=== PATIENT | female | born 1950 | race Caucasian/White ===

== ENCOUNTER → 2017-06-10 12:00 | Outpatient (CLI) | payer MEDICARE, OTHER, SELFPAY ==
--- NOTE | 2017-06-10 12:00 | STE_ITS ---
Reason For Study: Chest Pain, CAD Stress Results Protocol: Miguel Protocol Maximum Predicted HR: 154 bpm Target HR: 131 bpm% Max imum Predicted HR: 87 % DurationHeart Rate Stage (mm:ss) (bpm) BPCom ment Baseline 75 168/84 No Chest Pain Miguel Protocol Stage I 3:00 12 6 202/90No Chest Pain Miguel Protocol Stage II 1:30 13 4 / No Chest Pain; Moderate Dyspnea; Lightheaded Recovery 87 130/78 No Chest Pain Stress Duration: 4:30 mm:ss Maximum Stress HR: 134 bpmM ETS: 7 Baseline Echocardiogram Findings The estimated ejection fraction is 65 %. Normal left ventricle. Normal size and thickness. Stress Echo Wall motion Data Resting WMIntermediate WMStress WM Resting Wall Motion Wall Motion Stress No regional wall motion No regional wall motion abnormalities noted. abnormalities noted. EKG Data Normal intervals are noted. The patient exercised according to the regular Miguel protocol for a total duration of 4:30. The maximum heart rate attained was 137 beats per minute. This was 88% of maximum predicted heart rate. The patient exercised into stage 2 of the Miguel protocol. During stress, there were no ST or T wave changes noted to suggest ischemia. No clinical angina was noted. Interpretation Summary The estimated ejection fraction is 65 %. Normal adequate treadmill echocardiogram. Negative for ischemia by EKG and echocardiographic criteria. No anginal symptoms noted. Rare PVC noted. Hypertensive blood pressure response to exercise. Below average exercise capacity for age. Test terminated due to dyspnea, dizziness and lightheadedness. Final LVEF of 75%. No complications. Ordering Physician: Manjinder Toney Referring Physician: Manjinder Toney Performed By: Lily Millard, RDCS, RVT
== END ==
PROVIDERS: Family Provider Family Medicine; PCP Nurse Practitioner Family; Visit Provider Internal Medicine Cardiovascular Disease
DX: I25.119 Atherosclerotic heart disease of native coronary artery with unspecified angina pectoris (principal); Z95.5 Presence of coronary angioplasty implant and graft; R07.9 Chest pain, unspecified
CPT/HCPCS: 93017; 93350

== ENCOUNTER → 2017-12-20 10:43 | Outpatient (CLI) | payer MEDICARE, OTHER, SELFPAY ==
--- NOTE | 2017-12-20 11:00 | RAD_ITS ---
STUDY: X-RAY CHEST REASON FOR EXAM: Female, 67 years old. Chest pain, shortness of breath TECHNIQUE: Frontal and lateral views of the chest were obtained. COMPARISON: None. FINDINGS: The lungs are adequately aerated. There are no focal airspace opacities. There is no demonstrated pleural abnormality. There is borderline enlargement of the cardiac silhouette. The mediastinum and hilar regions are unremarkable. Normal visualized pulmonary arteries. There is atherosclerotic calcification of the thoracic aorta. There are diffuse degenerative changes of the visualized spine. There are degenerative changes in both shoulders. Cholecystectomy clips are present. RAD/Chest PA and Lateral IMPRESSION: There is borderline enlargement of the cardiac silhouette without pulmonary edema or pleural effusion. Electronically Signed: Mary Michel MD at 0:07 EST Tel Direct: [phone], Service support ,
[2017-12-20 11:38] LABS: Absolute Lymphocyte Count 1.71 X10^3/ul (0.83-4.51); Absolute Neutrophil Count 2.6 X10^3/uL (2.0-7.7); Basophil# 0.02 X10^3/uL; Basophil% 0.4 % (0-1); Eosinophil# 0.13 X10^3/uL; Eosinophils% 2.6 % (0-5); Hematocrit 39.4 % (37-47); Hemoglobin 12.9 g/dl (12.0-15.0); Lymphocyte # 1.71 X10^3/ul (4.0); Lymphocyte % 34.8 % (19-41); Mean Corp Hgb Conc 32.7 g/gl (32-36); Mean Corpuscular Hgb 31.3 pg (27.0-32.0); Mean Corpuscular Volume 95.6 fL (81-99); Monocyte# 0.41 X10^3/uL; Monocyte% 8.3 % (0-10); Neutrophil # 2.64 X10^3/uL (2.7-7.7); Neutrophil % 53.7 % (47-70); POSITIVE COUNT NO; POSITIVE DIFFERENTIAL NO; POSITIVE MORPHOLOGY NO; Platelet Count 254 K/mm3 (150-450); RBC Distribution Width CV 12.8 % (11.6-14.6); RBC Distribution Width SD 44.2 fl (35.1-43.9); Red Blood Count 4.12 M/mm3 (4.2-5.4); White Blood Count 4.9 K/mm3 (4.4-11.0)
[2017-12-20 11:49] LABS: International Normalized Ratio 0.9; Prothrombin Time (Protime)PT. 12.5 SECONDS (11.7-14.9)
[2017-12-20 12:04] LABS: AST(SGOT) 14 U/L (15-37); Alanine Aminotransfer ALT/SGPT 26 U/L (13-56); Albumin, Serum 3.3 g/dL (3.2-5.0); Alkaline Phosphatase 114 U/L (45-117); Anion Gap 9 (5-15); BUN 15 mg/dL (7-18); BUN/Creat Ratio 16.3 RATIO (10-20); Bilirubin, Direct 0.17 mg/dL (0.00-0.30); Chloride 110 mmol/L (98-107); Cholesterol 175 mg/dL (200); Creatinine, Serum 0.92 mg/dL (0.55-1.02); EST Glomerular Filtration Rate 65 mL/min (>60); Est Glom Filt Rate - Afr Amer 78 mL/min (>60); Globulin 3.8 g/dL (2.2-4.2); Glucose 93 mg/dL (74-106); High Density Lipoprotein 64 mg/dL; Potassium 3.8 mmol/L (3.5-5.1); Protein, Total 7.1 g/dL (6.4-8.2); Sodium Level 145 mmol/L (136-145); Triglycerides 106 mg/dL; Very Low Density Lipoprotein 21 mg/dL (5-40)
== END ==
PROVIDERS: Family Provider Nurse Practitioner Family; PCP Nurse Practitioner Family; Referring Provider Internal Medicine Cardiovascular Disease; Visit Provider Internal Medicine Cardiovascular Disease
DX: I25.119 Atherosclerotic heart disease of native coronary artery with unspecified angina pectoris (principal); E78.5 Hyperlipidemia, unspecified; Z95.5 Presence of coronary angioplasty implant and graft; R07.9 Chest pain, unspecified
CPT/HCPCS: 36415; 71046; 80048; 80061; 80076; 85025; 85610

== ENCOUNTER 2017-12-28 07:04 | Day surgery (SDC) | payer MEDICARE, OTHER, SELFPAY ==
[2017-12-27 09:23] VITALS: BMI 36.5
[2017-12-28] VITALS (24 sets, daily range): BP systolic 90–141; BP diastolic 30–69; PULSE 57–86; RESP 15–24; TEMP 36.3–37.3; O2SAT 93–99; BMI 36.4; BMI 36.5
--- NOTE | 2017-12-28 09:38 | EKG12_ITS ---
Test Reason : CP Blood Pressure : / mmHG Vent. Rate : 066 BPM Atrial Rate : 066 BPM P-R Int : 180 ms QRS Dur : 074 ms QT Int : 432 ms P-R-T Axes : 025 -08 001 degrees QTc Int : 452 ms Normal sinus rhythm Nonspecific T wave abnormality Abnormal ECG When compared with ECG of 28-DEC-2017 09:49, MANUAL COMPARISON REQUIRED, DATA IS UNCONFIRMED Confirmed by LJ SHI, VARINDER ([id number]), tape editor MILTON RUTH ([id number]) on 01/02/2018 1:51:20 PM Referred By: Manjinder Toney Confirmed By:VARINDER CALHOUN MD
--- NOTE | 2017-12-28 09:46 | CL.I_ITS ---
Patient Name: SLY SNELL Study Date: 12/28/2017 Performing: Manjinder Toney MD Ht: 60 inches 152 cm : 1950 Wt: 187.6 lbs 85 kg Age: 67 Gender: female BSA: 1.81 PROCEDURE(S) PERFORMED DE75-RXA/COR/LV [id number], CORONARY OR GRAFT, INITIAL VESSEL [id number] W OR WO PTCA, SINGLE CORONARY ARTERY CLINICAL PROFILE AND CO-MORBIDITIES Indications: Worsening Angina, Stable Known CAD Heart Failure: None Stress/Imaging Stress Echocardiogram: Yes Result: Negative Stress Echocardiogram: Negative Angina Classification Anginal Classification w/in 2 Weeks: CCS III CAD Presentations: Unstable angina. 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 Successful PTCA/EVELIN with FFR eval of proximal LAd; FFR=0.83. Pt received a 3.0 x 28 Promus Synergy, post dilated with a 3.0 x 12 NC Balloon; 75%-->0%, no dissection. RECOMMENDATIONS Staged for FFR Risk factor modification Management as per referring Algorithm Design Engineer Highly recommend quitting all tobacco products Follow up with primary store facility technician Risk factor modification ASA Indefinitley Plavix for at least 12 months Routine post interventional care Refer for Outpatient Cardiac Rehab Manual sheath removal per protocol Follow up with Dr. Toney ASA Indefinitley Medical management of non dominant RCA unless or until pt has recurrent anginal symptoms. Medical management of mid LAD; post stent LAD FFR=0.91 adjusted for baseline FFR of 0.96 after stenti ng. Successful Mynx closure using double sterile technique. DESCRIPTION OF PROCEDURE The patient arrived to the procedure lab. The risks and benefits of the procedure as well as a full d escription of our services here and lack of surgical backup were fully explained to the patient and/o r their significant other prior to the catheterization. The Timeout was completed, verifying the aga ect patient and procedure. The patient's procedural site was prepped and draped in the usual fashion. Local anesthetic was given subcutaneously to right groin region with Lidocaine 2%. Using a modified Seldinger technique, arterial access was obtained via the right femoral artery, a 4Fr sheath was inse rted. Left Coronary Artery selective angiography was performed in multiple views using a 4 Fr. JL5 c atheter. Right Coronary Artery selective angiography was then performed in multiple views using a 4 F r. 3DRC catheter. Left Ventriculography was performed in GUPTA projection using a 4 Fr. Pigtail cathete r Arterial sheath was exchanged for a 6 Fr Sheath. EBU 3.5 Guide catheter was inserted and engaged into the LCA. The FFR/iFR wire was inserted. Adenosine was then given per protocol. FFR Ratio Baselin e: 0.85 FFR Ratio post Adenosine: 0.83 Emerge 2.00x12 Balloon catheter was inserted. PTCA balloon inf lated at 6 atms for 22 secs. PTCA balloon inflated at 6 atms for 6 secs. Synergy 3.00x28 Drug Eluting stent was inserted. NC Emerge 3.00x12 Balloon catheter was inserted. PTCA balloon inflated at 10 juwan s for 16 secs. PTCA balloon inflated at 14 atms for 11 secs. PTCA balloon inflated at 12 atms for 6 s ecs. Angiogram performed post balloon dilatation. The FFR/iFR wire was inserted. Adenosine was then g iven per protocol. FFR Ratio post intervention: 0.89 Pressures and FFR/iFR were then recorded. The FF R/iFR wire was then removed. Contrast was injected through the sheath and the Right Iliac and Femoral artery were assessed for possible closure device. The arterial sheath was pulled and a Mynx closure device was deployed for hemostasis CORONARY ANGIOGRAPHY DOMINANCE: Left Dominant LEFT HEART ASSESSMENT Left Ventricular Ejection Fraction: by LV Gram 65 % Normal Left Ventricular systolic function Normal LV wall motion LEFT MAIN: Mild calcification LEFT ANTERIOR DECENDING ARTERY: PROX LAD: 75 % Stenosis CIRCUMFLEX ARTERY: MID CIRC: Instent restenosis 0 % RIGHT CORONARY ARTERY: MID RCA: 85 % Stenosis INTERVENTION INFORMATION LESION SITE: LAD (Proximal) Lesion Complexity: High/C, lesion length: 28 mm, culprit lesion: Yes Pre Stenosis: 75 % Pre intervention GUSTAVO flow: 3 PROCEDURE: FFR, Drug Eluting Stent with pre and post dilatation Post Stenosis: 0 % Post intervention GUSTAVO flow: 3 COMPLICATIONS No Complications PROCEDURE MEDICATIONS Versed 1 mg IV Versed 1 mg IV Oxygen: 2 L/min via nasal cannula Adenosine 12.2 mg IV 12/28/2017 08:48:37 Adenosine 12.2 mg IV @ 12/28/2017 08:48:37 Heparin 6000 unit(s) IV 12/28/2017 08:41:47 Nitro 200 mcg IC 12/28/2017 08:43:32 Nitro 200 mcg IC 12/28/2017 08:43:32 Nitro 200 mcg IC 12/28/2017 09:00:47 IV Bolus: .9 NaCl 250 ml total 12/28/2017 08:54:41 SUMMARY OF HEMODYNAMIC DATA Time AIR REST ECG 07:22:25 ECG 07:22:28 AO 149/65 (98) SA 08:31:56 LV 149/-12, 21 08:38:03 LV 151/-14, 16 08:38:09 LVp 157/-13, 16 08:38:15 AOp 157/65 (102) 08:38:20 Signed By Manjinder Toney MD On 12/28/2017 09:46:13 Manjinder Toney MD
--- NOTE | 2017-12-28 10:00 | EKG12_ITS ---
Test Reason : POST-PCI Blood Pressure : / mmHG Vent. Rate : 060 BPM Atrial Rate : 060 BPM P-R Int : 186 ms QRS Dur : 084 ms QT Int : 442 ms P-R-T Axes : 052 005 018 degrees QTc Int : 442 ms Normal sinus rhythm Normal ECG When compared with ECG of 09-DEC-2004 12:28, No significant change was found Confirmed by LJ SHI, VARINDER ([id number]), supervising editor news reel MILTON RTUH ([id number]) on 01/02/2018 1:58:25 PM Referred By: Manjinder Toney Confirmed By:VARINDER CALHOUN MD
--- NOTE | 2017-12-28 10:03 | NURSING ---
patient states she does not want a supplement ordered states she will not drink it.
[2017-12-28] MEDS: 0.9% Normal Saline 1,000 ML 150 ML IV (10:04)
[2017-12-28] MEDS: Isosorbide Mononitrate 60 MG Tablet PO ×2 (11:00→21:11)
[2017-12-28] MEDS: Furosemide 20 MG Tablet PO (11:00)
[2017-12-28] MEDS: Aspirin E.C. 81 MG Tablet PO (11:00)
[2017-12-28] MEDS: amLODIPine 10 MG Tablet PO (11:00)
[2017-12-28] MEDS: Pantoprazole Sodium 40 MG Tablet PO (11:00)
[2017-12-28] MEDS: buPROPion (SR) 150 MG Tablet.SA PO ×2 (11:00→21:11)
[2017-12-28] MEDS: Sertraline 100 MG Tablet PO (11:00)
--- NOTE | 2017-12-28 11:59 | CRPHASE1 ---
Patient Data/Charges Fertilizer Supervisor:: Manjinder Toney Admit Date:: 12/28/17 Phase I Charge:: Level I - Education Risk Factors/Lifestyle Smoking Status: Current every day smoker Packs Smoked per Day: 0.5 Hx Hypertension: Yes Hx Diabetes Mellitus Type 2: No Height: 1.52 m Weight:: 84.822 kg BMI: 36.5 Post-Menopausal: Yes Stress: Home/Family Caffeine: Yes Family History: Family History (Last Reviewed 12/19/17 @ 13:02 by Pari King) Brother CAD (coronary artery disease) Mother CAD (coronary artery disease) Diabetes Family History: COPD, Heart Disease, Hypertension, Pulmonary Disease Past Cardiac Illness: Previous PCI w/Stent Phase I Education Given On:: [place], Nutrition, Antiplatelet medication, Smoking cessation Issues Affecting Care:: None Knowledge of Condition:: Yes Hospital Course Pain Description: Tightness Medical/Surgical History [place]:: No Angina:: Yes Pulmonary:: Yes COPD:: Yes Diabetes Type II:: No Hypertension:: Yes Depression:: Yes Anxiety:: Yes PTCA:: Yes Discharge/Home/Social Eval Discharge Disposition: Home Marital Status: -
--- NOTE | 2017-12-28 12:03 | CRPHASE1_ITS ---
Patient Data/Charges Events Assistant:: Manjinder Toney Admit Date:: 12/28/17 Phase I Charge:: Level I - Education Risk Factors/Lifestyle Smoking Status: Current every day smoker Packs Smoked per Day: 0.5 Hx Hypertension: Yes Hx Diabetes Mellitus Type 2: No Height: 1.52 m Weight:: 84.822 kg BMI: 36.5 Post-Menopausal: Yes Stress: Home/Family Caffeine: Yes Family History: Family History (Last Reviewed 12/19/17 @ 13:02 by Pari King) Brother CAD (coronary artery disease) Mother CAD (coronary artery disease) Diabetes Family History: COPD, Heart Disease, Hypertension, Pulmonary Disease Past Cardiac Illness: Previous PCI w/Stent Phase I Education Given On:: [place], Nutrition, Antiplatelet medication, Smoking cessation Issues Affecting Care:: None Knowledge of Condition:: Yes Hospital Course Pain Description: Tightness Medical/Surgical History [place]:: No Angina:: Yes Pulmonary:: Yes COPD:: Yes Diabetes Type II:: No Hypertension:: Yes Depression:: Yes Anxiety:: Yes PTCA:: Yes Discharge/Home/Social Eval Discharge Disposition: Home Marital Status: -
--- NOTE | 2017-12-28 12:10 | CRPH1.INST_ITS ---
General Education CAD and cardiac anatomy and function:: Patient communicates acknowledgment, Family communicates acknowledgment Explanation of diagnoses and procedures:: Patient communicates acknowledgment, Family communicates acknowledgment Sign/Symptoms of UT:: Patient communicates acknowledgment, Family communicates acknowledgment Antiplatelet therapy: Patient communicates acknowledgment, Family communicates acknowledgment Proper use of NTG-SL: Patient communicates acknowledgment, Family communicates acknowledgment Emergency procedures and activation of EMS: Patient communicates acknowledgment, Family communicates acknowledgment Compliance of all prescribed medications: Patient communicates acknowledgment, Family communicates acknowledgment Smoking Patient Nicotine/Smoking Risk Factors Are:: Cigarettes Recommendations Include:: Smoking cessation strategies/Smoking packet Nicotine/Smoking Response Code:: Patient communicates acknowledgment - DOWN TO 1/2 PPD Dyslipidemia Recommendations Include:: Lipid profile not available Overweight/Obesity Patient Overweight/Obesity Risk Factors Are:: Overweight = 26-29 Overweight/Obesity:: Patient communicates acknowledgment, Family communicates acknowledgment Hypertension Recommendations Include:: Maintain BP <130/85, Decrease/maintain normal body weight Hypertension:: Patient communicates acknowledgment, Family communicates acknowledgment Heart Disease Patient Heart Disease Risk Factors Are:: Family history of heart disease < 65 ye ars old, Previous cardiac event Heart Disease Response Code:: Patient communicates acknowledgment, Family communicates acknowledgment Diabetes Patient Diabetes Risk Factors Are:: No documented hx of diabetes Metabolic Syndrome Patient Metabolic Syndrome Risk Factors Are [3 of 5]:: Waist circumference > 35 [female] or 40 [male], Hypertension Metabolic Syndrome Response Code:: Patient communicates acknowledgment, Family communicates acknowledgment Sedentary Recommendations Include:: Aerobic exercise 5-7 times/week for 20-30 minutes continuously, Benefits of regular exercise, Discussed home walking program Sedentary Response Code:: Patient communicates acknowledgment, Family communicates acknowledgment Stress Recommendations Include:: Identification of stressors, and assessment of coping skills, Stress management techniques Stress Response Code:: Patient communicates acknowledgment, Family communicates acknowledgment - PATIENT STATES THIS IS A MAJOR PROBLEM FOR HER
[2017-12-28 12:40] LABS: ACT Activated Clotting Time 213 sec (74-137)
--- NOTE | 2017-12-28 13:05 | CASEMGMT ---
KAYLI CAMACHO INITIAL ASSESSMENT D/C PLAN: Home RN CM to room for initial transition planning/care coordination assessment. RN DOUG introduced self and role at [facility]. Pt sleeping soundly. Pt's daughter, Emi, @ bedside, willing to participate in assessment, and able to answer all questions appropriately. Care providers, pharmacy, and demographics verified. Daughter made aware if pt would have any questions or needs, to have CM notified to come talk with her. Per Dr Toney, plan is for pt to discharge on Plavix and ASA. PCP: Leonor Orellana Preferred [facility]acy: [facility] Insurance: MCR A AND B, MMO Prescription Benefit: Yes Living Will/HPOA: Has both LW and HCPOA who is pt's , Jt. LNOK: Living Arrangements: Lives with in a split level home. 3 steps to enter home. Daughter states pt able to navigate them well. Pt independent at home w/all ADL's. Transportation: Pt and DME: Dtr states pt has a shower chair but does not use it. Has a raised toilet seat, rails/grab bars, and CPAP. There is a chair lift in the home b/w all the levels of the home that her dad uses, but is available for pt to use if she would need it. HHC/SNF: Dtr states pt has never used HHC or been to a SNF. No needs identified. CM to follow for any further discharge planning needs that may arise. Kamila CLINTON RN, CM
[2017-12-28] MEDS: Atorvastatin Calcium 80 MG Tablet PO (21:11)
[2017-12-29] VITALS (11 sets, daily range): BP systolic 97–147; BP diastolic 35–63; PULSE 55–76; RESP 14–23; TEMP 36.2–37.4; O2SAT 90–97
[2017-12-29 05:08] LABS: Absolute Lymphocyte Count 1.42 X10^3/ul (0.83-4.51); Basophil# 0.01 X10^3/uL; Basophil% 0.2 % (0-1); Eosinophil# 0.11 X10^3/uL; Eosinophils% 2.2 % (0-5); Hematocrit 35.9 % (37-47); Hemoglobin 11.5 g/dl (12.0-15.0); Lymphocyte # 1.42 X10^3/ul (4.0); Lymphocyte % 28.2 % (19-41); Mean Corpuscular Hgb 30.6 pg (27.0-32.0); Mean Corpuscular Volume 95.5 fL (81-99); Mean Platelet Vol. 8.8 fl (6.2-12.0); Monocyte% 9.9 % (0-10); Neutrophil # 2.98 X10^3/uL (2.7-7.7); Neutrophil % 59.3 % (47-70); Platelet Count 220 K/mm3 (150-450); RBC Distribution Width CV 12.6 % (11.6-14.6); RBC Distribution Width SD 42.4 fl (35.1-43.9); Red Blood Count 3.76 M/mm3 (4.2-5.4)
[2017-12-29 05:19] LABS: POSITIVE COUNT NO; POSITIVE DIFFERENTIAL NO; POSITIVE MORPHOLOGY NO
[2017-12-29 05:23] LABS: Anion Gap 7 (5-15); BUN 17 mg/dL (7-18); BUN/Creat Ratio 19.3 RATIO (10-20); Calcium,Total 8.8 mg/dL (8.5-10.1); Chloride 111 mmol/L (98-107); Creatinine, Serum 0.88 mg/dL (0.55-1.02); EST Glomerular Filtration Rate 68 mL/min (>60); Est Glom Filt Rate - Afr Amer 82 mL/min (>60); Estimated Creatinine Clearance 44.56 ml/min; Glucose 92 mg/dL (74-106); Sodium Level 143 mmol/L (136-145)
--- NOTE | 2017-12-29 09:07 | PCM.DC.CCA ---
Discharge Diet: Low fat/ Low Cholesterol May shower in (days): 1 Lifting Restrictions: 10 pounds and also avoid any pushing or pulling for 3 days after your test. Call your doctor if your incision/area has: Continuous Slow Oozing, Increased Pain/ Swelling, Increased Redness, Foul Smelling Discharge, Swelling at the incision site Call your doctor if you observe: Fever of 101 or Higher, Shortness of breath, Chest pain Remove Dressing in (days):: 1 Cleanse incision/area with: Soap & Water Additional Dressing/Incision Instructions:: Keep the dressing (bandage) on until the next morning. You may then shower, but do not take a tub bath for 5 days after your test. It is normal to have some tenderness and discomfort at the puncture site. Sometimes bruising also occurs. However, if pain, numbness, or coldness occurs below the puncture site (in your leg, toes, arms or fingers) call your doctor at once. You may have a small, marble sized knot at the puncture site. This is normal. Do not rub it. It will go away in 4-6 weeks. Bleeding can occur from the area where the puncture was done. Blood may spurt or drip from the site. If blood spurts, apply pressure right away to stop bleeding and call 911. Although rare, bleeding into the tissue (hematoma) can also occur. If this happens, a large, firm area goose egg under the skin will appear. If any of these occur, lie down as flat as you can and have someone apply firm pressure to the cath site with a gauze pad or a clean washcloth for 10-15 minutes. Call 911 or go to the Emergency Department. Additional Instructions: You will need to stay on your plavix for at least one year After your office visit we will refer you to cardiac rehab Allergies/Adverse Reactions: Allergies doxycycline Allergy (Verified 12/19/17 13:10) Unknown metoprolol Adverse Reaction (Verified 12/19/17 13:10) intermittent heart block oxycodone Adverse Reaction (Verified 12/19/17 13:10) vomiting Medications to take at Discharge amlodipine 10 mg tablet 10 mg PO QDAY 90 Days #90 tab 05/16/17 aspirin 81 mg tablet,delayed release 81 mg PO QDAY tab 05/16/17 atorvastatin 80 mg tablet 80 mg PO QHS tab 05/16/17 bupropion HCl SR 150 mg tablet,12 hr sustained-release 150 mg PO BID 05/16/17 furosemide 20 mg tablet 20 mg PO DAILY 05/16/17 sertraline 100 mg tablet 100 mg PO QDAY 05/16/17 isosorbide mononitrate ER 60 mg tablet,extended release 24 hr 60 mg PO BID #60 tab 06/10/17 clopidogrel 75 mg tablet 75 mg PO QDAY #90 tab 12/19/17 omeprazole 40 mg capsule,delayed release 40 mg PO QDAY #90 cap 12/19/17 Primary Care Physician: Leonor Orellana NP-C [Primary Care Provider] - Test Results: Test results from this visit will be discussed in further detail at your follow-up appointment, if applicable. Please Follow Up With: Ifeanyi Maldonado NP-C When: 01/11 at 1:30 Cardiac Rehabilitation Info Cardiac Rehabilitation Program Information: Cardiac Rehabilitation is important for patients like you who are recovering from a heart problem. Cardiac rehabilitation programs are recognized as integral to the continued care of the patient with coronary heart disease. The cardiac rehabilitation program is designed to optimize a patient's physical, psychological, and social functioning. Health career technical supervisor work in cardiac rehabilitation programs and assist you with getting the treatments you need to get stronger and healthier - like exercise, healthy eating habits, and medications. Cardiac rehabilitation has been show to help people with heart problems live longer and have better life enjoyment than people who do not go to cardiac rehabilitation. Please contact the Cardiac Rehabilitation Program at [facility] at in two weeks if you have not heard from them.
--- NOTE | 2017-12-29 09:12 | DCINST_ITS ---
Discharge Diet: Low fat/ Low Cholesterol May shower in (days): 1 Lifting Restrictions: 10 pounds and also avoid any pushing or pulling for 3 days after your test. Call your doctor if your incision/area has: Continuous Slow Oozing, Increased Pain/ Swelling, Increased Redness, Foul Smelling Discharge, Swelling at the incision site Call your doctor if you observe: Fever of 101 or Higher, Shortness of breath, Chest pain Remove Dressing in (days):: 1 Cleanse incision/area with: Soap & Water Additional Dressing/Incision Instructions:: Keep the dressing (bandage) on until the next morning. You may then shower, but do not take a tub bath for 5 days after your test. It is normal to have some tenderness and discomfort at the puncture site. Sometimes bruising also occurs. However, if pain, numbness, or coldness occurs below the puncture site (in your leg, toes, arms or fingers) call your doctor at once. You may have a small, marble sized knot at the puncture site. This is normal. Do not rub it. It will go away in 4-6 weeks. Bleeding can occur from the area where the puncture was done. Blood may spurt or drip from the site. If blood spurts, apply pressure right away to stop bleeding and call 911. Although rare, bleeding into the tissue (hematoma) can also occur. If this happens, a large, firm area goose egg under the skin will appear. If any of these occur, lie down as flat as you can and have someone apply firm pressure to the cath site with a gauze pad or a clean washcloth for 10-15 minutes. Call 911 or go to the Emergency Department. Additional Instructions: You will need to stay on your plavix for at least one year After your office visit we will refer you to cardiac rehab Allergies/Adverse Reactions: Allergies doxycycline Allergy (Verified 12/19/17 13:10) Unknown metoprolol Adverse Reaction (Verified 12/19/17 13:10) intermittent heart block oxycodone Adverse Reaction (Verified 12/19/17 13:10) vomiting Medications to take at Discharge amlodipine 10 mg tablet 10 mg PO QDAY 90 Days #90 tab 05/16/17 aspirin 81 mg tablet,delayed release 81 mg PO QDAY tab 05/16/17 atorvastatin 80 mg tablet 80 mg PO QHS tab 05/16/17 bupropion HCl SR 150 mg tablet,12 hr sustained-release 150 mg PO BID 05/16/17 furosemide 20 mg tablet 20 mg PO DAILY 05/16/17 sertraline 100 mg tablet 100 mg PO QDAY 05/16/17 isosorbide mononitrate ER 60 mg tablet,extended release 24 hr 60 mg PO BID #60 tab 06/10/17 clopidogrel 75 mg tablet 75 mg PO QDAY #90 tab 12/19/17 omeprazole 40 mg capsule,delayed release 40 mg PO QDAY #90 cap 12/19/17 Primary Care Physician: Leonor Orellana NP-C [Primary Care Provider] - Test Results: Test results from this visit will be discussed in further detail at your follow- up appointment, if applicable. Please Follow Up With: Ifeanyi Maldonado NP-C When: 01/11 at 1:30 Cardiac Rehabilitation Info Cardiac Rehabilitation Program Information: Cardiac Rehabilitation is important for patients like you who are recovering from a heart problem. Cardiac rehabilitation programs are recognized as integral to the continued care of the patient with coronary heart disease. The cardiac rehabilitation program is designed to optimize a patient's physical, psychological, and social functioning. Health disabilities caregiver work in cardiac rehabilitation programs and assist you with getting the treatments you need to get stronger and healthier - like exercise, healthy eating habits, and medications. Cardiac rehabilitation has been show to help people with heart problems live longer and have better life enjoyment than people who do not go to cardiac rehabilitation. Please contact the Cardiac Rehabilitation Program at [facility] at in two weeks if you have not heard from them.
[2017-12-29] MEDS: Pantoprazole Sodium 40 MG Tablet PO (09:28)
[2017-12-29] MEDS: Furosemide 20 MG Tablet PO (09:28)
[2017-12-29] MEDS: Aspirin E.C. 81 MG Tablet PO (09:28)
[2017-12-29] MEDS: buPROPion (SR) 150 MG Tablet.SA PO (09:28)
[2017-12-29] MEDS: Sertraline 100 MG Tablet PO (09:28)
[2017-12-29] MEDS: Isosorbide Mononitrate 60 MG Tablet PO (09:28)
[2017-12-29] MEDS: Clopidogrel Bisulfate 75 MG Tablet PO (09:28)
[2017-12-29] MEDS: amLODIPine 10 MG Tablet PO (09:28)
--- NOTE | 2017-12-29 10:00 | EKG12_ITS ---
Test Reason : AM Blood Pressure : / mmHG Vent. Rate : 071 BPM Atrial Rate : 071 BPM P-R Int : 186 ms QRS Dur : 074 ms QT Int : 428 ms P-R-T Axes : 054 003 -01 degrees QTc Int : 465 ms Normal sinus rhythm Normal ECG When compared with ECG of 09-DEC-2004 12:28, Nonspecific T wave abnormality now evident in Anterior leads QT has lengthened Confirmed by LJ SHI, VARINDER ([id number]), proposal editor MILTON RUTH ([id number]) on 01/02/2018 1:51:58 PM Referred By: Manjinder Toney Confirmed By:VARINDER CALHOUN MD
--- NOTE | 2017-12-29 10:20 | PN.CARD_ITS ---
Subjectve: Patient feels great this morning acclimation Hussein no chest pain, angina, shortness of breath. Her right groin is clean/dry/intact without evidence of thrills, bruits or hematoma. She has 2+ DP and PT pulses bilaterally. EKG shows normal sinus rhythm, no acute changes. Hemoglobin and creatinine are within nominal limits. Telemetry negative. Objective: Vital Signs Temp Pulse Resp BP Pulse Ox 97.2 F L 71 17 126/53 H 95 12/29/17 04:00 12/29/17 09:00 12/29/17 09:00 12/29/17 09:00 12/29/17 09:00 Oxygen Delivery Method Room Air Weight: 188 lb 4.396 oz Body Mass Index (BMI) 36.4 Intake and Output for Last 24 Hours 12/27/17 12/28/17 12/29/17 23:59 23:59 23:59 Intake Total 1248 / 1248 677 / 677 Balance 1248 / 1248 677 / 677 General: Awake, Alert, Oriented x 3 HEENT: PERRL, EOMI, Sclera Non Icteric Neck: Supple, Good ROM, No Lymph Node Enlargement Lungs: Clear to auscultation Cardiovascular: Regular Rhythm, Normal S1, Normal S2, No Murmurs, No Rubs, No Gallops Vascular: No Carotid Bruits, Normal Femoral Pulses, Normal Radial Pulses, Normal Dorsalis Pedal Pulse, Normal Posterior Tibial Pulses Abdomen: Bowel Sounds Present, Soft, Non Tender, No HSM, No Organomegaly Extremities: No Cyanosis, No Clubbing, No edema Neurological: No Focal Motor or Sensory Deficit 12/29/17 04:45: Sodium 143, Potassium 4.0, Chloride 111 H, Carbon Dioxide 25.0, Anion Gap 7, BUN 17, Creatinine 0.88, Est GFR (MDRD) Af Amer 82, Est GFR (MDRD) Non-Af 68, BUN/Creatinine Ratio 19.3, Glucose 92, Calcium 8.8 12/29/17 04:45: WBC 5.0, RBC 3.76 L, Hgb 11.5 L, Hct 35.9 L, MCV 95.5, MCH 30.6, MCHC 32.0, RDW 12.6, RDW Differential 42.4, Plt Count 220, MPV 8.8, Immature Gran % (Auto) 0.200, Neut % (Auto) 59.3, Lymph % (Auto) 28.2, [place] % (Auto) 9.9, Eos % (Auto) 2.2, Baso % (Auto) 0.2, Absolute Neuts (auto) 3.0, Total Counted Not Reportable Rhythm: EKG: ECHO: Stress Test: Cardiac Cath: PCI: CT Surgery: Holter monitor: EPS: PPM: CXR: Chest CT Scan: Medical Necessity - Tobacco Use Smoking Status: Current every day smoker Assessment/Plan 1. Coronary artery disease: Patient feels much better after angioplasty and stenting of her LAD. No additional stenting needed at this time. If the patient has recurrent anginal symptoms, I would consider PCI of the mid LAD which has a less than 50% stenosis and may be hemodynamically significant. Otherwise the patient will be discharged home today and follow-up with Ifeanyi in our office in 2 weeks time for a groin check. She will then be enrolled in cardiac rehab. Would hold off on angioplasty and stenting of her nondominant mid RCA at this time. She will continue dual antiplatelet therapy, and be discharged home later today. 2. Hyperlipidemia: Continue statin based medications. Repeat lipid profile after cardiac rehab. 3. Patient to be discharged home and follow-up with Dr. Toney going forward. Code Visit Inpatient E&M: 97850 Subs Hosp L2
== END 2017-12-29 10:48 | disposition home or self-care (01) ==
LOC: CLSP 07:07 → ICU 09:04
PROVIDERS: Family Provider Nurse Practitioner Family; PCP Nurse Practitioner Family; Referring Provider Internal Medicine Cardiovascular Disease; Visit Provider Internal Medicine Cardiovascular Disease
DX: I25.119 Atherosclerotic heart disease of native coronary artery with unspecified angina pectoris (principal); E78.5 Hyperlipidemia, unspecified; I65.29 Occlusion and stenosis of unspecified carotid artery; I10 Essential (primary) hypertension; E78.00 Pure hypercholesterolemia, unspecified; K21.9 Gastro-esophageal reflux disease without esophagitis; E66.9 Obesity, unspecified; Z68.36 Body mass index [BMI] 36.0-36.9, adult; Z95.5 Presence of coronary angioplasty implant and graft; Z79.82 Long term (current) use of aspirin; Z79.01 Long term (current) use of anticoagulants; Z79.899 Other long term (current) drug therapy; Z87.891 Personal history of nicotine dependence; Z71.3 Dietary counseling and surveillance
CPT/HCPCS: 80048; 85025; 85347; 92928; 93005; 93458; 93571; 97802; 99152; 99153; C1760; J0153; J7030; J7040; C1725; C1769; C1874; C1887; C1894; C9600; Q9967

== ENCOUNTER → 2018-02-23 11:16 | Outpatient (CLI) | payer MEDICARE, OTHER, SELFPAY ==
[2017-12-28 12:03] VITALS: BMI 36.5
[2018-02-23 10:25] VITALS: BMI 36.9
[2018-02-23 13:28] LABS: Absolute Lymphocyte Count 1.79 X10^3/ul (0.83-4.51); Absolute Neutrophil Count 4.1 X10^3/uL (2.0-7.7); Basophil# 0.02 X10^3/uL; Basophil% 0.3 % (0-1); Eosinophil# 0.15 X10^3/uL; Eosinophils% 2.3 % (0-5); Hemoglobin 12.3 g/dl (12.0-15.0); Lymphocyte # 1.79 X10^3/ul (4.0); Lymphocyte % 27.2 % (19-41); Mean Corp Hgb Conc 34.2 g/gl (32-36); Mean Corpuscular Hgb 30.4 pg (27.0-32.0); Mean Corpuscular Volume 88.9 fL (81-99); Mean Platelet Vol. 9.8 fl (6.2-12.0); Monocyte# 0.53 X10^3/uL; Monocyte% 8.1 % (0-10); Neutrophil # 4.08 X10^3/uL (2.7-7.7); Neutrophil % 61.9 % (47-70); Platelet Count 280 K/mm3 (150-450); RBC Distribution Width SD 38.2 fl (35.1-43.9); Red Blood Count 4.05 M/mm3 (4.2-5.4); White Blood Count 6.6 K/mm3 (4.4-11.0)
[2018-02-23 13:29] LABS: POSITIVE COUNT NO; POSITIVE DIFFERENTIAL NO; POSITIVE MORPHOLOGY NO
[2018-02-23 13:41] LABS: T4 Free Direct 0.98 ng/dL (0.76-1.46); Thyroid Stim Hormone (TSH) 1.63 uIU/mL (0.358-3.74)
[2018-02-23 13:41] LABS: Vitamin D,25 Hydroxy 52.6 ng/mL (29.95-100.01)
[2018-02-23 13:43] LABS: ALB/GLOB Ratio 0.9 RATIO (0.9-2.4); AST(SGOT) 17 U/L (15-37); Alanine Aminotransfer ALT/SGPT 28 U/L (13-56); Albumin, Serum 3.9 g/dL (3.2-5.0); Alkaline Phosphatase 80 U/L (45-117); Anion Gap 12 (5-15); BUN 23 mg/dL (7-18); BUN/Creat Ratio 20.2 RATIO (10-20); Calcium,Total 9.9 mg/dL (8.5-10.1); Chloride 98 mmol/L (98-107); Creatinine, Serum 1.14 mg/dL (0.55-1.02); EST Glomerular Filtration Rate 51 mL/min (>60); Est Glom Filt Rate - Afr Amer 61 mL/min (>60); Globulin 4.2 g/dL (2.2-4.2); Glucose 178 mg/dL (74-106); Potassium 3.8 mmol/L (3.5-5.1); Protein, Total 8.1 g/dL (6.4-8.2); Sodium Level 137 mmol/L (136-145); Thyroid Stim Hormone (TSH) 2.47 uIU/mL (0.358-3.74)
== END ==
PROVIDERS: Family Provider Nurse Practitioner Family; PCP Nurse Practitioner Family; Visit Provider Nurse Practitioner Family
DX: R06.02 Shortness of breath (principal); R53.83 Other fatigue
CPT/HCPCS: 36415; 80053; 82306; 83880; 84439; 84443; 85025

== ENCOUNTER → 2018-03-29 12:47 | Outpatient (CLI) | payer MEDICARE, OTHER, SELFPAY ==
[2017-12-28 12:03] VITALS: BMI 36.5
[2018-03-08 11:39] VITALS: BMI 36.9
--- NOTE | 2018-03-30 10:49 | PFT ---
INTRODUCTION: The patient is a 67-year-old female that presents for pulmonary function studies secondary to a diagnosis of shortness of breath. Respiratory therapy reports good patient effort. Bronchodilators were used during testing. INTERPRETATION: Forced expiration spirometry demonstrates no evidence of a large airways obstructive ventilatory defect. There was no significant response to aerosolized bronchodilators. Spirograms are of good quality and plateau normally. Body plethysmography was performed and reveals lung volumes to be within normal limits. Diffusing capacity by single breath CO is within normal limits at 65% of predicted. IMPRESSION: Grossly normal pulmonary function studies.
== END ==
PROVIDERS: Family Provider Nurse Practitioner Family; PCP Nurse Practitioner Family; Referring Provider Internal Medicine Critical Care Medicine; Visit Provider Internal Medicine Critical Care Medicine
DX: R06.02 Shortness of breath (principal)
CPT/HCPCS: 94060; 94726; 94729

== ENCOUNTER → 2018-04-03 10:00 | Outpatient (CLI) | payer MEDICARE, OTHER, SELFPAY ==
[2017-12-28 12:03] VITALS: BMI 36.5
[2018-03-08 11:39] VITALS: BMI 36.9
--- NOTE | 2018-04-03 12:07 | SLEEP ---
Patient here after seeing Dr. Louis at [facility] for sleep and pulmonary issues. She had testing and DME set up in [place] in 2018. She is attempting to establish with a DME here in [place]. 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 She wants to use [employer] for supply replacement. I explained that she might not be able to switch until she is out of her rental cycle with [employer]. She has been having difficulty with her current mask. She does not have that with her today. It is a ffm that goes over the bridge of the nose. This has always cause her discomfort. She needs replacement supplies. At least a cushion. I gave her a medium F20 and a DW small frame/ medium cushion to trial. She can keep these until she is able to establish with [employer]. I sent a fax to [facility] to send order for replacement supplies to [place]
== END ==
PROVIDERS: Family Provider Nurse Practitioner Family; PCP Nurse Practitioner Family; Referring Provider Internal Medicine Critical Care Medicine; Visit Provider Internal Medicine Critical Care Medicine
DX: G47.33 Obstructive sleep apnea (adult) (pediatric) (principal)
CPT/HCPCS: 98960; G0463

== ENCOUNTER → 2018-05-05 10:26 | Outpatient (CLI) | payer MEDICARE, OTHER, SELFPAY ==
[2017-12-28 12:03] VITALS: BMI 36.5
[2018-03-08 11:39] VITALS: BMI 36.9
--- NOTE | 2018-05-05 10:29 | STE_ITS ---
Reason For Study: CHEST PAIN Stress Results Protocol: Miguel Protocol Maximum Predicted HR: 153 bpm Target HR: 130 bpm % Maximum Predicted HR: 92 % DurationHeart Rate Stage (mm:ss) (bpm) BP Comment BASELINE 72 144/74 STAGE 1 3:00 120 162/661:20 MINUTUE JERAMY SLIGHT SOB STAGE 2 1:30 141 / SOB AND DIZZINESS RECOVERY 95 142/60 Stress Duration: 4:30 mm:ss Maximum Stress HR: 141 bpm Baseline Echocardiogram Findings The estimated ejection fraction is 65 %. Stress Echo Wall motion Data Resting WM Intermediate WM Stress WM Resting Wall Motion Wall Motion Stress No regional wall motion No regional wall motion abnormalities noted. abnormalities noted. EKG Data Normal intervals are noted. The patient exercised according to the regular Miguel protocol for a total duration of 4:30. The maximum heart rate attained was 141 beats per minute. This was 92% of maximum predicted heart rate. The patient exercised into stage 2 of the Miguel protocol. During stress, there were no ST or T wave changes noted to suggest ischemia. No clinical angina was noted. Interpretation Summary The estimated ejection fraction is 65 %. Normal, adequate, treadmill echocardiogram. Negative for ischemia by EKG and echocardiographic criteria. No anginal symptoms noted. Rare PVCs noted. Appropriate blood pressure response to exercise. Below average exercise capacity for age. Test terminated due to the attainment of target heart rate and dyspnea. Final LVEF is 75%. No complications. Ordering Physician: Manjinder Toney MD Referring Physician: Manjinder Toney Performed By: Lily Millard, JOJO, RVT
== END ==
PROVIDERS: Family Provider Nurse Practitioner Family; PCP Nurse Practitioner Family; Referring Provider Internal Medicine Cardiovascular Disease; Visit Provider Internal Medicine Cardiovascular Disease
DX: I25.119 Atherosclerotic heart disease of native coronary artery with unspecified angina pectoris (principal); R07.9 Chest pain, unspecified; R06.09 Other forms of dyspnea; Z95.5 Presence of coronary angioplasty implant and graft
CPT/HCPCS: 93017; 93350

== ENCOUNTER → 2018-05-18 09:35 | Outpatient (CLI) | payer MEDICARE, OTHER, SELFPAY ==
[2017-12-28 12:03] VITALS: BMI 36.5
[2018-05-15 10:42] VITALS: BMI 37.5
--- NOTE | 2018-05-18 09:48 | RAD_ITS ---
STUDY: X-RAY CHEST REASON FOR EXAM: Female, 67 years old. Pain and shortness of breath for one week. TECHNIQUE: PA and lateral views of the chest. COMPARISON: 12/20/2017. FINDINGS: The lungs are clear and expanded. There is no demonstrated pleural abnormality. Normal size heart. Normal mediastinum and natanael. Normal visualized pulmonary arteries. Normal visualized aortic arch and descending thoracic aorta. There are diffuse degenerative changes of the visualized thoracic spine. There is dextroscoliosis of the thoracolumbar spine. There is degenerative osteoarthritis of the bilateral shoulders. There is no demonstrated abnormality of the visualized soft tissue structures of the upper abdomen. RAD/Chest PA and Lateral IMPRESSION: No active pulmonary disease. Electronically Signed: Oli Logan MD at 9:51 EDT Tel , Service support ,
[2018-05-18 10:07] LABS: Erythrocyte Sedimentation Rate 7 mm/hr (0-30); Hematocrit 38.9 % (37-47); Hemoglobin 12.7 g/dl (12.0-15.0); Mean Corp Hgb Conc 32.6 g/gl (32-36); Mean Corpuscular Volume 91.7 fL (81-99); Platelet Count 257 K/mm3 (150-450); RBC Distribution Width CV 13.2 % (11.6-14.6); RBC Distribution Width SD 43.1 fl (35.1-43.9); Red Blood Count 4.24 M/mm3 (4.2-5.4); Scan Indicated on CBC? Y/N NO; White Blood Count 4.8 K/mm3 (4.4-11.0)
== END ==
PROVIDERS: Family Provider Nurse Practitioner Family; PCP Nurse Practitioner Family; Referring Provider Internal Medicine Cardiovascular Disease; Visit Provider Internal Medicine Cardiovascular Disease
DX: I25.10 Atherosclerotic heart disease of native coronary artery without angina pectoris (principal); R53.83 Other fatigue; R07.1 Chest pain on breathing; R06.00 Dyspnea, unspecified
CPT/HCPCS: 36415; 71046; 85027; 85652

== ENCOUNTER → 2018-06-29 14:10 | Outpatient (CLI) | payer MEDICARE, OTHER, SELFPAY ==
[2017-12-28 12:03] VITALS: BMI 36.5
[2018-06-29 13:22] VITALS: BMI 37.9
[2018-06-29 15:20] LABS: Absolute Lymphocyte Count 1.65 X10^3/ul (0.83-4.51); Absolute Neutrophil Count 2.5 X10^3/uL (2.0-7.7); Basophil# 0.01 X10^3/uL; Basophil% 0.2 % (0-1); Eosinophils% 2.2 % (0-5); Hematocrit 37.6 % (37-47); Hemoglobin 12.4 g/dl (12.0-15.0); Lymphocyte # 1.65 X10^3/ul (4.0); Lymphocyte % 36.2 % (19-41); Mean Corpuscular Hgb 29.7 pg (27.0-32.0); Mean Platelet Vol. 8.9 fl (6.2-12.0); Monocyte% 6.6 % (0-10); Neutrophil # 2.49 X10^3/uL (2.7-7.7); Neutrophil % 54.6 % (47-70); Platelet Count 233 K/mm3 (150-450); RBC Distribution Width SD 42.3 fl (35.1-43.9); Red Blood Count 4.18 M/mm3 (4.2-5.4); White Blood Count 4.6 K/mm3 (4.4-11.0)
[2018-06-29 15:25] LABS: Prothrombin Time (Protime)PT. 13.3 SECONDS (11.7-14.9)
[2018-06-29 15:58] LABS: AST(SGOT) 19 U/L (15-37); Alanine Aminotransfer ALT/SGPT 25 U/L (13-56); Albumin, Serum 3.5 g/dL (3.2-5.0); Alkaline Phosphatase 102 U/L (45-117); Anion Gap 6 (5-15); BUN 16 mg/dL (7-18); BUN/Creat Ratio 15.7 RATIO (10-20); Bilirubin, Direct 0.14 mg/dL (0.00-0.30); Calcium,Total 8.9 mg/dL (8.5-10.1); Chloride 108 mmol/L (98-107); Creatinine, Serum 1.02 mg/dL (0.55-1.02); EST Glomerular Filtration Rate 57 mL/min (>60); Est Glom Filt Rate - Afr Amer 69 mL/min (>60); Globulin 3.7 g/dL (2.2-4.2); Glucose 111 mg/dL (74-106); Potassium 3.4 mmol/L (3.5-5.1); Protein, Total 7.2 g/dL (6.4-8.2); Sodium Level 141 mmol/L (136-145)
[2018-06-29 16:07] LABS: POSITIVE COUNT NO; POSITIVE DIFFERENTIAL NO; POSITIVE MORPHOLOGY NO
== END ==
PROVIDERS: Family Provider Nurse Practitioner Family; PCP Nurse Practitioner Family; Referring Provider Internal Medicine Cardiovascular Disease; Visit Provider Internal Medicine Cardiovascular Disease
DX: I25.119 Atherosclerotic heart disease of native coronary artery with unspecified angina pectoris (principal); R07.9 Chest pain, unspecified; E78.5 Hyperlipidemia, unspecified; G47.33 Obstructive sleep apnea (adult) (pediatric)
CPT/HCPCS: 36415; 80048; 80076; 85025; 85610

== ENCOUNTER 2018-07-12 07:04 | Day surgery (SDC) | payer MEDICARE, OTHER, SELFPAY ==
[2017-12-28 12:03] VITALS: BMI 36.5
--- NOTE | 2018-06-29 01:48 | HP_ITS ---
HPI HPI History of Present Illness Surgical H&P: Yes Details: HPI Chief Complaint: Unstable angina Details: SLY SNELL, is a 67 nondiabetic, female former smoker who smoked on and off for approximately 40 years, sees Dr. Louis for obstructive sleep apnea, who presents to the office today for a cardiovascular outpatient follow-up. She is a history of coronary artery disease status post stenting to her OM 2 at [facility] on 02/23/2017 and PTCA/EVELIN with FFR to proximal LAD in December 2017. Her heart catheterization in December 2017 showed 0% mid LCx in-stent restenosis and 85% mid non dominat RCA stenosis. Given small nature of nondominant RCA stenosis this was left for medical management. She also has a history of hypertension, hyperlipidemia, previous smoker who quit in 2017, obstructive sleep apnea with CPAP therapy, right carotid endarterectomy on 09/01/2012 after suffering several TIAs, and acid reflux. Most recent stress echocardiogram was 05/05/2018 which was negative for inducible ischemia. Despite all of these efforts, the patient continues to have episodes of dyspnea on exertion, shortness of breath and had an episode of chest pain that woke her up from sound sleep in May 2018. She took a sublingual nitroglycerin and her symptoms resolved. The patient is apparently planning on going to [place] soon. Patient states that she initially felt much better after angioplasty and stenting of her LAD in December, participated in cardiac rehab without much difficulty, and continues to exercise as best she can at the [facility] however she has noted decreased exercise capacity, worsening shortness of breath. She had pulmonary function test on 03/30/18 which were grossly normal. In our office today her blood pressure is 100/60, pulse is 72 and regular. Her physical exam is as below. Her lipids as of 12/20/2017 showed an LDL of 90 and HDL of 64. 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: No Is patient in pain?: No Allergies doxycycline Allergy (Verified 06/28/18 15:14) Unknown metoprolol Adverse Reaction (Verified 06/28/18 15:14) intermittent heart block oxycodone Adverse Reaction (Verified 06/28/18 15:14) vomiting Medications aspirin 81 mg tablet,delayed release 81 mg PO QDAY tab 05/16/17 [History Confirmed 06/29/18] sertraline 100 mg tablet 100 mg PO QDAY 05/16/17 [History Confirmed 06/29/18] clopidogrel 75 mg tablet 75 mg PO QDAY #90 tab 12/19/17 [Rx Confirmed 06/29/18] omeprazole 40 mg capsule,delayed release 40 mg PO QDAY #90 cap 12/19/17 [Rx Confirmed 06/29/18] amlodipine 10 mg tablet 10 mg PO QDAY 90 Days #90 tab 01/11/18 [Rx Confirmed 06/29/18] atorvastatin 80 mg tablet 80 mg PO QHS #90 tab 01/11/18 [Rx Confirmed 06/29/18] bupropion HCl SR 150 mg tablet,12 hr sustained-release 150 mg PO BID 02/23/18 [History Confirmed 05/15/18] furosemide 20 mg tablet 20 mg PO DAILY PRN 02/23/18 [History Confirmed 06/29/18] isosorbide mononitrate ER 60 mg tablet,extended release 24 hr 60 mg PO DAILY tab 02/23/18 [History Confirmed 05/15/18] nitroglycerin 0.4 mg sublingual tablet 0.4 mg SUBLINGUAL Q5-15M PRN #25 tab 02/23/18 [Rx Confirmed 06/29/18] [facility] Medical History Nicotine dependence in remission (Chronic) Atherosclerotic heart disease [place] coronary artery w/angina pectoris (Chronic) Obesity (Chronic) Hypertension (Chronic) Hyperlipidemia (Chronic) Carotid artery stenosis (Chronic) GERD (gastroesophageal reflux disease) (Chronic) Obstructive sleep apnea (Chronic) intermttent type 2 heart block (Chronic) Surgical History History of coronary artery stent placement (Chronic 12/28/17) H/O breast biopsy (Resolved) H/O carotid endarterectomy (Resolved ~09/05/12) History of hysterectomy (Resolved) Hx of cholecystectomy (Resolved) Family History Brother CAD (coronary artery disease) CABG Mother CAD (coronary artery disease) Diabetes Sister , Age 13 Myocarditis Social History Tobacco: How many years used: 40 how long ago did patient quit smokin, 0.5ppd second hand exposure: Yes alcohol intake: never caffeine: Yes Type: carbonated beverages Number of servings: 2 ROS Const Const: Positive for other (Stress test 05/16/18 neg: still having CP.On June 11 severe hx, took ntg.); negative for fatigue, weakness, body ache, fever(s), headache(s), chills, frequent falls, night sweats, daytime sleepiness, difficulty sleeping, excessive sweating, weight gain, weight loss, increased appetite, poor appetite or anorexia Eyes Eyes: Negative for blind spots, loss of peripheral vision, transient loss of vision, blurry vision, change in vision, double vision, floaters, tunnel vision or other ENT ENT: Negative for headache(s), dizziness, hearing loss, tinnitus, Nosebleed/epistaxis, balance problems, post nasal drip, lip swelling, tongue swelling, bleeding gums, hoarseness, neck pain, dry mouth or other Cardio Chest Pain: Yes (Off an on, it has gotten better over the past month) Frequency: other (a couple times a week) Character: dull (aching) Onset: at rest Location: mid sternal Relieving: rest, other (One time had to take a nitro) Palpitations: No Edema: Left (left ankle and top of foot. Is taking Lasix every day.) Muscle aches with walking: None Resp Respiratory: Positive for SOB with activity, Cough (occasionally productive clear, usually dry.) and other (Uses CPAP regularly); negative for SOB at rest, SOB orthopnea\SOB lying down, Coughing up blood/hemoptysis, chest congestion, pain on inspiration, snoring, stridor, wheezing, crackles or paroxysmal nocturnal dyspnea GI GI: Negative nausea, vomiting, heartburn, constipation, belching, bloating, cramping, vomiting blood/hematemesis, bright, red blood in stools, black,tarry stools, loose stools, Difficulty Swallowing or other : Negative for hematuria, frequent nighttime urination/ nocturia, erectile dysfunction or abnormal vaginal bleeding Musc Musc: Negative for muscle aches/ myalgia, muscle weakness, joint pain or balance problems Skin Skin: Negative redness, non-healing lesions, rash, unusual bruising, skin ulcer, wounds, jaundice or other Neuro Neuro: Negative for dizziness, lightheadedness, near syncope, syncope, orthostatic symptoms, frequent falls, headache(s), weakness, confusion, memory loss, restless legs, blurry vision, double vision, vertigo, seizures, lack of coordination or other [place] Hematologic/Lymphatic: Negative for easy bleeding, easy bruising, enlarged lymph nodes or other Endo Endo: Negative for fatigue, cold intolerance, heat intolerance, excessive sweating, flushing, increased thirst/drinking, increased hunger, hair loss, hair growth or other Psych Psych: Negative for anxiety, depression, thoughts of harming anyone, thoughts of harming yourself, visual hallucinations, panic attacks or audible hallucinations Allergy Allergy/Immunology: Negative for throat swelling, Negative for tongue swelling, Negative for hives, Negative for rash, Negative for lip swelling Cardiology Exam Const Appearance: cooperative, healthy appearing and no acute distress Nutritional Appearance: well nourished Orientation: alert, oriented x3 and oriented to person Head Head: normal to inspection, normocephalic and atraumatic Nose: external nose normal Face and Sinus: face symmetric Mouth: oral mucosae normal Eyes General: appearance normal, both eyes and all related structures Eyelids: eyelids normal Conjunctivae: conjunctivae normal Pupils: PERRL and normal by confrontation EOM: EOM intact bilaterally Neck Neck: normal visual inspection and full ROM Carotids: normal carotid upstroke Chest Chest inspection: normal inspection of the chest Auscultation: Bilateral: Clear to Auscultation Cardio Palpation: normal PMI Rate: regular rate Rhythm: regular rhythm Heart sounds: S1 normal and S2 normal GI GI: normal to inspection, no hepatosplenomegaly and bowel sounds present Neuro General: alert, awake, oriented x3, CN's II-XI intact bilaterally and moves all extremities Skin Skin: no rashes or lesions noted Extremities Pulses: Normal: Right Femoral Pulse, Left Femoral Pulse, Right Dorsalis Pedis Pulse, Left Dorsalis Pedis Pulse, Right Posterior Tibial Pulse, Left Posterior Tibial Pulse, Right Radial Pulse, Left Radial Pulse Lower Extremity Edema: None: Bilateral Psych Psychological: normal affect Assessment & Plan 1. Atherosclerosis of [place] coronary artery of [place] heart with angina pectoris I25.119 [id number] OM2 2.25 x 13 mm Resolute Raghu 02/23/17; PTCA/EVELIN with FFR to proximal LAD with a 3.0 x 28 Promus Synergy, post dilated with a 3.0 x 12 NC Balloon; Plan 1. Coronary artery disease: The patient has had recurrent episodes of vocal, nonexertional chest pain relieved with sublingual nitroglycerin, but no subsequent exertional anginal symptoms. Her main complaint is dyspnea on exertion and shortness of breath. She underwent a treadmill echocardiogram on 05/05/2018 which was negative for inducible ischemia. In addition the patient reports that she initially garnered a significant benefit from angioplasty and stenting of her LAD system in December 2017, and has had gradually worsening dyspnea on exertion over the last several weeks to months. In addition the patient apparently is planning a trip to [facility] to visit her grandson in the upcoming near term. Given the patient's known coronary disease, initial improvement of her symptoms in December and gradual deterioration of her symptoms despite maximal medical therapy and participation in cardiac rehab, as well as the fact that [place] is going [place] in the near future, I recommended that she undergo a repeat left heart catheterization and coronary angiogram, and intervention of her mid RCA if all of her other stents are patent. In addition I recommended a right heart catheterization to determine if she has undiagnosed or under appreciated pulmonary hypertension given her obstructive sleep apnea and previous smoking. Her recent PFTs were grossly normal. In the meantime she will continue her baby aspirin, amlodipine, Plavix, Lasix and M. Sonam. 2. Hyperlipidemia: We are awaiting a repeat lipid profile. Continue Lipitor. 3. Return office in 6 months. This note was generated using a voice recognition system and there may be incorrect words, spelling or punctuation that were not noted when reviewing the office note prior to saving. Orders Orders: 12 Lead EKG performed by [facility] Today Liver Profile Today Basic Metabolic Profile (BMP) Today Chest PA and Lateral Today 2. Pure hypercholesterolemia E78.00 Plan Detail Other Orders Orders: Left Heart Cath/COR/LV Percut Today I25.10 Lipid Profile Today I25.10 Liver Profile Today E78.5 Basic Metabolic Profile (BMP) Today I25.10, R07.9 Prothrombin Time w/INR Today I25.10 CBC W/Diff, Automated Today G47.33 Other Medications Discontinued: ibuprofen Discontinued Reason: Pt no longer taking 400 mg PO Q8H 60 tabs 1RF Follow Up +6M (Feng) Coding Level of Care Code Off vis,est,level 3 Diagnoses Atherosclerosis of [place] coronary artery of [place] heart with angina pectoris I25.119 ??[place] vs. transplanted heart: [place] heart Pure hypercholesterolemia E78.00 ??Hyperlipidemia type: pure hypercholesterolemia Coding Level of Care Code Off vis,est,level 3 Diagnoses Atherosclerosis of [place] coronary artery of [place] heart with angina pectoris I25.119 ??[place] vs. transplanted heart: [place] heart Pure hypercholesterolemia E78.00 ??Hyperlipidemia type: pure hypercholesterolemia Supplemental Info Supplemental Information Labs LDL Cholesterol 90 mg/dL (0-130) 12/20/17 HDL Cholesterol 64 mg/dL (40-) 12/20/17 Triglycerides 106 mg/dL (-199) 12/20/17 VLDL Cholesterol 21 mg/dL (5-40) 12/20/17 Diagnostics Electrocardiogram 12/29/17 Stress Echocardiogram 05/05/18 Chest X-Ray 05/18/18 Pulmonary Pulmonary Function Test 03/30/18 04/03/18 06/29/18 1349 <Electronically signed by Manjinder Toney MD> Date Manjinder Toney MD
[2018-06-29 13:22] VITALS: BMI 37.9
[2018-07-11 08:41] VITALS: BMI 37.8
[2018-07-12] VITALS (27 sets, daily range): BP systolic 104–168; BP diastolic 39–85; PULSE 55–87; RESP 14–26; TEMP 36.6–37.1; O2SAT 91–99; BMI 37.9
[2018-07-12 09:45] LABS: Blood Gas Specimen Type VEN; VBG BASE EXCESS -3 mmol/L (-1.0-3.5); VBG Bicarbonate 22 mmol/L (22-26); VBG Oxygen Content 23 mmol/L (23-33); VBG PO2 37 mmHg (25-40); VBG SO2 68 % (50-70); VBG pCO2 39.1 mmHg (41-51); VBG pH 7.36 (7.32-7.42)
[2018-07-12 09:45] LABS: ACT Activated Clotting Time 230 sec (74-137)
[2018-07-12 09:45] LABS: Base Excess -4 mmol/L (-2 to +2); Bicarbonate 21.7 mmol/L (22-26); Blood Gas Specimen Type ART; PO2 65 mmHG (75-100); SO2 92 % (95-99); Total Carbon Dioxide 23 mmol/L; pCO2 37.6 mmHg (35-45); pH 7.37 (7.35-7.45)
[2018-07-12 09:45] LABS: Blood Gas Specimen Type VEN; VBG BASE EXCESS -3 mmol/L (-1.0-3.5); VBG Bicarbonate 22 mmol/L (22-26); VBG Oxygen Content 23 mmol/L (23-33); VBG PO2 42 mmHg (25-40); VBG SO2 76 % (50-70); VBG pCO2 38.3 mmHg (41-51); VBG pH 7.37 (7.32-7.42)
--- NOTE | 2018-07-12 09:46 | CL.I_ITS ---
Patient Name: LSY SNELL Study Date: 07/12/2018 Performing: Manjinder Toney MD Ht: 59.84 inches 152 cm : 1950 Wt: 194.01 lbs 88 kg Age: 67 Gender: female BSA: 1.84 PROCEDURE(S) PERFORMED IN43-HFT/LHC/COR/LV HW91-HQH W OR WO PTCA, SINGLE CORONARY ARTERY CLINICAL PROFILE AND CO-MORBIDITIES Indications: New Onset Angina <= 2 months, Stable Known CAD Heart Failure: None Stress/Imaging Date: 05/05/2018 Stress Echocardiogram: Negative Angina Classification Anginal Classification w/in 2 Weeks: CCS III CAD Presentations: Unstable angina. Other: Dyspnea on exertion Comorbidities/Risk Factors: Hypertension Dyslipidemia Prior PCI CONCLUSIONS Normal LV size, wall motion,and systolic function Perserved Left Ventricular systolic function with normal EDP LVEF: by LV gram 65 % Normal Left Ventricular End Diastolic Pressure Single vessel CAD of the mid RCA Non obstructive coronary arteries The patient has normal pulmonary hemodynamics. Right heart pressures - Normal Widely patent LAD and LCX stents. Non obstructive coronary arteries The patient has normal pulmonary hemodynamics. Right heart pressures - Normal Successful PTCA/EVELIN ostial and mid RCA with a 2.25 x 38 Promus Synergy, post dilatedin proximal 3/4 w ith a 2.5 x 12 NC balloon including ostial stent flaring; 85%-->0%, no dissection. Pt had identical CP with balloon inflation as she had at home. RECOMMENDATIONS Referred for immediate PCI Management as per referring Tile And Marble Installer Highly recommend quitting all tobacco products Follow up with primary boring mill operator for metal Risk factor modification ASA Indefinitley Plavix for at least 12 months Routine post interventional care Refer for Outpatient Cardiac Rehab Manual sheath removal per protocol Follow up with Dr. Toney Successful Mynx Control of RFA. DESCRIPTION OF PROCEDURE The patient arrived to the procedure lab. The risks and benefits of the procedure as well as a full d escription of our services here and lack of surgical backup were fully explained to the patient and/o r their significant other prior to the catheterization. The Timeout was completed, verifying the aga ect patient and procedure. The patient's procedural site was prepped and draped in the usual fashion. Local anesthetic was given subcutaneously to right groin region with Lidocaine 2%. Using a modified Seldinger technique, arterial access was obtained via the right femoral artery, a 4Fr sheath was inse rted. Venous access was obtained via the right femoral vein, a 7Fr sheath was inserted. A 7Fr thermal dilution catheter was inserted and right heart pressures were recorded, it was then advanced to PA p osition for cardiac outputs. O2 saturations were then obtained. Thermal dilution cardiac outputs were then recorded. The Thermal dilution catheter was then removed. Left Ventriculography was performed in GUPTA projection using a 4 Fr. Pigtail catheter. LV to AO pullback pressures were then rec orded. Left Coronary Artery selective angiography was performed in multiple views using a 4 Fr. JL5 c atheter. Right Coronary Artery selective angiography was then performed in multiple views using a 4 F r. 3DRC catheterThe images were reviewed and options discussed. A decision was then made to proceed w ith an Intervention, IVUS or other adjunct procedure. Arterial sheath was exchanged for a 6 Fr Sheath. HS1 SH Guide catheter was inserted and engaged i nto the RCA. BMW Guide wire was advanced to the RCA. 2 X 8 EMERGE Balloon catheter was advanced acros s lesion in the right coronary, mid. PTCA balloon inflated at 6 atms for 10 secs. PTCA balloon inflat ed at 8 atms for 13 secs. PTCA balloon inflated at 8 atms for 10 secs. PTCA balloon inflated at 8 juwan s for 13 secs. PTCA balloon inflated at 8 atms for 10 secs. Angiogram performed post balloon dilatati on. 2.25 X 38 SYNERGY Drug Eluting stent was inserted. Drug Eluting stent was advanced across the les ion in the right coronary, mid. Angiogram performed pre stent deployment. Angiogram performed post st ent deployment. 2.5 X 12 NC EMERGE Balloon catheter was inserted. Balloon catheter was inserted post stent. Angiogram performed post balloon dilatation. Contrast was injected through the sheath and the Right Iliac and Femoral artery were assessed for possible closure device. The arterial sheath was pulled and a Mynx closure device was deployed for hemostasis CORONARY ANGIOGRAPHY DOMINANCE: Co- Dominant LEFT HEART ASSESSMENT Left Ventricular Ejection Fraction: by LV Gram 65 % Normal Left Ventricular systolic function LVEDP: 11 mmHg Normal Left Ventricular End Diastolic Pressure Normal LV wall motion RIGHT HEART ASSESSMENT Thermal CO: 5.61 Thermal CI: 3.05 PW: 11/9 7 PA: 31/7 18 RV: 29/1 8 RA: 8/6 4 PVR: 157 SVR: 1497 Right Heart pressures - normal LEFT MAIN: Angiographically normal LEFT ANTERIOR DESCENDING ARTERY: Mild luminal irregularities less than 30% PROX LAD: Previously placed stent is patent CIRCUMFLEX ARTERY: Non-obstructive DISTAL CIRC: Previously placed stent is patent RIGHT CORONARY ARTERY: OSTIAL RCA: 75 % Stenosis MID RCA: 85 % Stenosis INTERVENTION INFORMATION LESION SITE: RCA (Mid) Lesion Complexity: High/C, lesion at bifurcation: No, thrombus present: No, lesion length: 38 mm, cul prit lesion: Yes Pre Stenosis: 85 % Pre intervention GUSTAVO flow: 3 PROCEDURE: Drug Eluting Stent with pre and post dilatation Post Stenosis: 0 % Post intervention GUSTAVO flow: 3 Lesion Devices: Mccarthy .014 BMW [place] Straight 190cm [employer] 6 Fr HSI SH 100cm Guide Catheter Edgardo Sci EMERGE MR 2.00x08 BALLOON Edgardo Sci Synergy MR EVELIN 2.25x38 Edgardo Sci NC EMERGE MR 2.50x12 BALLOON COMPLICATIONS No Complications PROCEDURE MEDICATIONS Versed 1 mg IV Versed 1 mg IV Versed 2 mg IV Baby Aspirin (81mg) 1 Tabs PO @ 07/12/2018 07:48:45 Heparin 6000 unit(s) IV 07/12/2018 08:55:25 Nitro 200 mcg IC 07/12/2018 08:50:34 Nitro 200 mcg IC 07/12/2018 08:50:34 Nitro 300 mcg IC 07/12/2018 09:14:08 Nitro 300 mcg IC 07/12/2018 09:19:26 Nitro glycerin 25mg / 250ml D5W @ 5 mcg/min IV started 07/12/2018 09:24:08 Plavix 75 mg PO 07/12/2018 07:48:57 Potassium Chloride 10 mEq PO 07/12/2018 07:49:13 IV Fluids: .9 NaCl increased to WO ml/hr 07/12/2018 09:00:15 SUMMARY OF HEMODYNAMIC DATA Time AIR REST ECG 07:37:47 RA 09/19 (4) SV 08:35:37 RV 14/03, 08:35:50 PW 12/23 (7) PV 08:36:10 PA 31 (18) PA 08:36:22 LV 136/-11, 10 08:40:07 LV 138/-10, 11 08:40:13 LV 138/-11, 10 08:40:29 PW 13/12 (9) 08:40:29 LV 140/-12, 11 08:40:35 PW 13/10 (9) 08:40:35 LV 132/-7, 8 08:42:34 RV 31/2, 9 08:42:34 LV 148/-7, 14 08:42:41 RV 33/3, 11 08:42:41 LV 144/-10, 13 08:42:51 RV 31/3, 10 08:42:51 LV 153/-8, 14 08:44:10 LVp 155/-13, 13 08:44:13 AOp 150/62 (97) 08:44:18 AO 134/89 (109) SA 08:46:53 AO 160/66 (108) 09:19:16 Type SV CO (l/m) CI (l/m/ HR Time AIR REST Thermal 90.50 5.61 3.05 62 07:37:47 Label % O2 Pres/Loc Time AIR REST AO 92 PV 08:50:47 PA 68 PA 08:50:50 Signed By Manjinder Toney MD On 07/12/2018 09:45:46 Manjinder Toney MD
--- NOTE | 2018-07-12 09:55 | EKG12_ITS ---
Test Reason : PCI Blood Pressure : / mmHG Vent. Rate : 060 BPM Atrial Rate : 060 BPM P-R Int : 184 ms QRS Dur : 076 ms QT Int : 448 ms P-R-T Axes : 044 009 028 degrees QTc Int : 448 ms Normal sinus rhythm Normal ECG Confirmed by ROSEMARY SHI, BARTOLO ([id number]), editorial specialist MILTON RUTH ([id number]) on 07/17/2018 3:11:08 PM Referred By: Manjinder Toney Confirmed By:BARTOLO RILEY MD
--- NOTE | 2018-07-12 10:00 | EKG12_ITS ---
Test Reason : PCI Blood Pressure : / mmHG Vent. Rate : 058 BPM Atrial Rate : 058 BPM P-R Int : 154 ms QRS Dur : 078 ms QT Int : 442 ms P-R-T Axes : 045 013 013 degrees QTc Int : 433 ms Poor data quality, interpretation may be adversely affected Sinus bradycardia with sinus arrhythmia Nonspecific T wave abnormality Confirmed by ROSEMARY SHI, BARTOLO ([id number]), editorial director MILTON RUTH ([id number]) on 07/17/2018 3:11:37 PM Referred By: Manjinder Toney Confirmed By:BARTOLO RILEY MD
[2018-07-12] MEDS: Nitroglycerin Infusion 250 ML 3 MG IV (10:14)
[2018-07-12] MEDS: 0.9% Normal Saline 1,000 ML 150 ML IV (10:14)
--- NOTE | 2018-07-12 10:33 | CRPHASE1_ITS ---
Patient Communication Former Patient:: Phase I - Seen in December 2017 and did cardiac rehab following PHII Cardiac Rehab Discussed with Patient:: Yes Guide to Cardiac Rehab Given to Patient:: Yes Cardiac Rehab Facility Choice List Given to Patient:: Yes - [facility] Choice Program [facility] CR PHII:: Communication Given to CR, Refer to [facility] Control Engineer:: Manjinder Toney Sessions:: 36 sessions - 3 days/wk, 12 weeks Risk Factors/Lifestyle Family History: Family History (Last Reviewed 06/29/18 @ 13:22 by Pari King) Brother CAD (coronary artery disease) Mother CAD (coronary artery disease) Diabetes Sister Myocarditis Cardiac Rehabilitation Info Cardiac Rehabilitation Program Information: Cardiac Rehabilitation is important for patients like you who are recovering from a heart problem. Cardiac rehabilitation programs are recognized as integral to the continued care of the patient with coronary heart disease. The cardiac rehabilitation program is designed to optimize a patient's physical, psychological, and social functioning. Health healthcare economics manager work in cardiac rehabilitation programs and assist you with getting the treatments you need to get stronger and healthier - like exercise, healthy eating habits, and medications. Cardiac rehabilitation has been show to help people with heart problems live longer and have better life enjoyment than people who do not go to cardiac rehabilitation. Please contact the Cardiac Rehabilitation Program at [facility] at in two weeks if you have not heard from them.
--- NOTE | 2018-07-12 10:33 | CRPH1.INSTRU ---
General Education CAD and cardiac anatomy and function:: Not instructed Explanation of diagnoses and procedures:: Not instructed Sign/Symptoms of MN:: Not instructed Antiplatelet therapy: Not instructed Proper use of NTG-SL: Not instructed Emergency procedures and activation of EMS: Not instructed Compliance of all prescribed medications: Not instructed - Seen in Dec 2017 and did cardiac rehab
[2018-07-12] MEDS: Isosorbide Mononitrate 60 MG Tablet PO (11:32)
[2018-07-12] MEDS: Furosemide 20 MG Tablet PO (11:32)
[2018-07-12] MEDS: buPROPion (SR) 150 MG Tablet.SA PO ×2 (11:32→21:21)
[2018-07-12] MEDS: amLODIPine 10 MG Tablet PO (17:52)
[2018-07-12] MEDS: Atorvastatin Calcium 80 MG Tablet PO (21:21)
[2018-07-13] VITALS (11 sets, daily range): BP systolic 122–143; BP diastolic 33–63; PULSE 63–89; RESP 16–20; TEMP 36.8–36.9; O2SAT 91–99
[2018-07-13 04:27] LABS: Hematocrit 35.9 % (37-47); Hemoglobin 11.8 g/dl (12.0-15.0); Mean Corp Hgb Conc 32.9 g/gl (32-36); Mean Corpuscular Hgb 29.4 pg (27.0-32.0); Mean Corpuscular Volume 89.3 fL (81-99); Mean Platelet Vol. 8.9 fl (6.2-12.0); Platelet Count 237 K/mm3 (150-450); RBC Distribution Width CV 12.7 % (11.6-14.6); RBC Distribution Width SD 41.2 fl (35.1-43.9); Red Blood Count 4.02 M/mm3 (4.2-5.4); White Blood Count 5.7 K/mm3 (4.4-11.0)
[2018-07-13 04:28] LABS: Scan Indicated on CBC? Y/N NO
[2018-07-13 04:44] LABS: Anion Gap 7 (5-15); BUN 13 mg/dL (7-18); BUN/Creat Ratio 15.6 RATIO (10-20); Calcium,Total 8.9 mg/dL (8.5-10.1); Chloride 109 mmol/L (98-107); Cholesterol 148 mg/dL (200); Creatinine, Serum 0.83 mg/dL (0.55-1.02); EST Glomerular Filtration Rate 72 mL/min (>60); Est Glom Filt Rate - Afr Amer 88 mL/min (>60); Estimated Creatinine Clearance 47.24 ml/min; Glucose 97 mg/dL (74-106); High Density Lipoprotein 61 mg/dL; Potassium 3.6 mmol/L (3.5-5.1); Sodium Level 142 mmol/L (136-145); Triglycerides 170 mg/dL; Very Low Density Lipoprotein 34 mg/dL (5-40)
[2018-07-13 07:16] LABS: ACT Activated Clotting Time 164 sec (74-137)
--- NOTE | 2018-07-13 08:53 | PCM.DC.CCA ---
Discharge Diet: Low fat/ Low Cholesterol May shower in (days): 1 Lifting Restrictions: 10 pounds and also avoid any pushing or pulling for 3 days after your test. Call your doctor if your incision/area has: Continuous Slow Oozing, Sudden Increased Bleeding, Increased Pain/ Swelling, Increased Redness, Foul Smelling Discharge, Swelling at the incision site Call your doctor if you observe: Fever of 101 or Higher, Shortness of breath, Chest pain Remove Dressing in (days):: 1 Additional Instructions: Call your insurance to see if it will cover cardiac rehab as it has been so recent since you completed it, at your next OV we can discuss further You can NOT stop your plavix for at least one year Allergies/Adverse Reactions: Allergies doxycycline Allergy (Verified 06/28/18 15:14) Unknown metoprolol Adverse Reaction (Verified 06/28/18 15:14) intermittent heart block oxycodone Adverse Reaction (Verified 06/28/18 15:14) vomiting Medications to take at Discharge aspirin 81 mg tablet,delayed release 81 mg PO QDAY tab 05/16/17 sertraline 100 mg tablet 100 mg PO QDAY 05/16/17 clopidogrel 75 mg tablet 75 mg PO QDAY #90 tab 12/19/17 omeprazole 40 mg capsule,delayed release 40 mg PO QDAY #90 cap 12/19/17 amlodipine 10 mg tablet 10 mg PO QDAY 90 Days #90 tab 01/11/18 atorvastatin 80 mg tablet 80 mg PO QHS #90 tab 01/11/18 bupropion HCl SR 150 mg tablet,12 hr sustained-release 150 mg PO BID 02/23/18 isosorbide mononitrate ER 60 mg tablet,extended release 24 hr 60 mg PO DAILY tab 02/23/18 nitroglycerin 0.4 mg sublingual tablet 0.4 mg SUBLINGUAL Q5-15M PRN #25 tab 02/23/18 furosemide 20 mg tablet 20 mg PO DAILY 07/11/18 Potassium Chloride [K-Dur] 10 meq PO DAILY 07/12/18 Orders to be completed after discharge: Phase II, Outpatient Cardiac Rehab Location: None Selected Primary Care Physician: Leonor Orellana, WALT-C [Primary Care Provider] - Please follow up with your Primary Care Physician in: call to see if she wants a f/u Test Results: Test results from this visit will be discussed in further detail at your follow-up appointment, if applicable. Please Follow Up With: Ifeanyi Maldonado NP-C When: 07/31 at 1030 Cardiac Rehabilitation Info Cardiac Rehabilitation Program Information: Cardiac Rehabilitation is important for patients like you who are recovering from a heart problem. Cardiac rehabilitation programs are recognized as integral to the continued care of the patient with coronary heart disease. The cardiac rehabilitation program is designed to optimize a patient's physical, psychological, and social functioning. Health home care liaison work in cardiac rehabilitation programs and assist you with getting the treatments you need to get stronger and healthier - like exercise, healthy eating habits, and medications. Cardiac rehabilitation has been show to help people with heart problems live longer and have better life enjoyment than people who do not go to cardiac rehabilitation. Please contact the Cardiac Rehabilitation Program at [facility] at in two weeks if you have not heard from them.
--- NOTE | 2018-07-13 08:56 | PCM.PN.CARD ---
Subjectve: Patient doing very well, feels much better, no chest pain overnight. Telemetry negative. Right groin is clean/dry/intact, no thrills, bruits or hematoma. EKG shows normal sinus rhythm, no acute changes. Hemoglobin and creatinine are within nominal limits. Objective: Vital Signs Temp Pulse Resp BP Pulse Ox 98.2 F 85 17 135/63 H 97 07/13/18 04:00 07/13/18 08:00 07/13/18 08:00 07/13/18 08:00 07/13/18 08:00 Oxygen Delivery Method Room Air Weight: 198 lb 6.656 oz Body Mass Index (BMI) 37.9 Intake and Output for Last 24 Hours 07/11/18 07/12/18 07/13/18 23:59 23:59 23:59 Intake Total 2239 / 2239 800 / 800 Output Total 1700 / 1700 400 / 400 Balance 539 / 539 400 / 400 07/12/18 08:41: VBG pH 7.36, VBG pO2 37, VBG O2 Sat (Calc) 68, VBG O2 Content 23, VBG Base Excess -3 L 07/12/18 08:44: VBG pH 7.37, VBG pO2 42 H, VBG O2 Sat (Calc) 76 H, VBG O2 Content 23, VBG Base Excess -3 L 07/12/18 08:48: pH 7.37, Bicarbonate Actual 21.7 L, POC Total CO2 23, Base Excess -4 L, O2 Saturation 92 L, ABG pCO2 37.6, ABG pO2 65 L 07/13/18 04:25: WBC 5.7, RBC 4.02 L, Hgb 11.8 L, Hct 35.9 L, MCV 89.3, MCH 29.4, MCHC 32.9, RDW 12.7, RDW Differential 41.2, Plt Count 237, MPV 8.9 07/13/18 04:25: Sodium 142, Potassium 3.6, Chloride 109 H, Carbon Dioxide 26.0, Anion Gap 7, BUN 13, Creatinine 0.83, Est GFR (MDRD) Af Amer 88, Est GFR (MDRD) Non-Af 72, BUN/Creatinine Ratio 15.6, Glucose 97, Calcium 8.9, Triglycerides 170, Cholesterol 148, LDL Cholesterol 53, VLDL Cholesterol 34, HDL Cholesterol 61 Rhythm: EKG: ECHO: Stress Test: Cardiac Cath: PCI: CT Surgery: Holter monitor: EPS: PPM: CXR: Chest CT Scan: Medical Necessity - Tobacco Use Smoking Status: Former smoker Assessment/Plan 1. Coronary artery disease: The patient had identical chest pain that she has been having at home with angioplasty and stenting of her codominant right coronary artery. No additional stenting needed at this time. She will continue baby aspirin and Plavix going forward. Patient be enrolled in cardiac rehab in 2 weeks time. 2. Hyperlipidemia: Continue antilipid therapy. Repeat lipid profile at the conclusion of cardiac rehab. 3. Patient may be discharged home and follow-up with Dr. Toney going forward. Code Visit Inpatient E&M: 60957 Subs Hosp L2
--- NOTE | 2018-07-13 08:57 | DCINST_ITS ---
Discharge Diet: Low fat/ Low Cholesterol May shower in (days): 1 Lifting Restrictions: 10 pounds and also avoid any pushing or pulling for 3 days after your test. Call your doctor if your incision/area has: Continuous Slow Oozing, Sudden Increased Bleeding, Increased Pain/ Swelling, Increased Redness, Foul Smelling Discharge, Swelling at the incision site Call your doctor if you observe: Fever of 101 or Higher, Shortness of breath, Chest pain Remove Dressing in (days):: 1 Additional Instructions: Call your insurance to see if it will cover cardiac rehab as it has been so recent since you completed it, at your next OV we can discuss further You can NOT stop your plavix for at least one year Allergies/Adverse Reactions: Allergies doxycycline Allergy (Verified 06/28/18 15:14) Unknown metoprolol Adverse Reaction (Verified 06/28/18 15:14) intermittent heart block oxycodone Adverse Reaction (Verified 06/28/18 15:14) vomiting Medications to take at Discharge aspirin 81 mg tablet,delayed release 81 mg PO QDAY tab 05/16/17 sertraline 100 mg tablet 100 mg PO QDAY 05/16/17 clopidogrel 75 mg tablet 75 mg PO QDAY #90 tab 12/19/17 omeprazole 40 mg capsule,delayed release 40 mg PO QDAY #90 cap 12/19/17 amlodipine 10 mg tablet 10 mg PO QDAY 90 Days #90 tab 01/11/18 atorvastatin 80 mg tablet 80 mg PO QHS #90 tab 01/11/18 bupropion HCl SR 150 mg tablet,12 hr sustained-release 150 mg PO BID 02/23/18 isosorbide mononitrate ER 60 mg tablet,extended release 24 hr 60 mg PO DAILY tab 02/23/18 nitroglycerin 0.4 mg sublingual tablet 0.4 mg SUBLINGUAL Q5-15M PRN #25 tab 02/23/18 furosemide 20 mg tablet 20 mg PO DAILY 07/11/18 Potassium Chloride [K-Dur] 10 meq PO DAILY 07/12/18 Orders to be completed after discharge: Phase II, Outpatient Cardiac Rehab Location: None Selected Primary Care Physician: Leonor Orellana, WALT-C [Primary Care Provider] - Please follow up with your Primary Care Physician in: call to see if she wants a f/u Test Results: Test results from this visit will be discussed in further detail at your follow- up appointment, if applicable. Please Follow Up With: Ifeanyi Maldonado NP-C When: 07/31 at 1030 Cardiac Rehabilitation Info Cardiac Rehabilitation Program Information: Cardiac Rehabilitation is important for patients like you who are recovering from a heart problem. Cardiac rehabilitation programs are recognized as integral to the continued care of the patient with coronary heart disease. The cardiac rehabilitation program is designed to optimize a patient's physical, psychological, and social functioning. Health personal care home administrator work in cardiac rehabilitation programs and assist you with getting the treatments you need to get stronger and healthier - like exercise, healthy eating habits, and medications. Cardiac rehabilitation has been show to help people with heart problems live longer and have better life enjoyment than people who do not go to cardiac rehabilitation. Please contact the Cardiac Rehabilitation Program at [facility] at in two weeks if you have not heard from them.
[2018-07-13] MEDS: Aspirin E.C. 81 MG Tablet PO (09:13)
[2018-07-13] MEDS: Furosemide 20 MG Tablet PO (09:14)
[2018-07-13] MEDS: buPROPion (SR) 150 MG Tablet.SA PO (09:14)
[2018-07-13] MEDS: amLODIPine 10 MG Tablet PO (09:14)
[2018-07-13] MEDS: Pantoprazole Sodium 40 MG Tablet PO (09:14)
[2018-07-13] MEDS: Isosorbide Mononitrate 60 MG Tablet PO (09:14)
[2018-07-13] MEDS: Sertraline 100 MG Tablet PO (09:14)
[2018-07-13] MEDS: Clopidogrel Bisulfate 75 MG Tablet PO (09:14)
--- NOTE | 2018-07-13 10:00 | EKG12_ITS ---
Test Reason : AM EKG Blood Pressure : / mmHG Vent. Rate : 066 BPM Atrial Rate : 066 BPM P-R Int : 174 ms QRS Dur : 084 ms QT Int : 420 ms P-R-T Axes : 059 007 026 degrees QTc Int : 440 ms Normal sinus rhythm Nonspecific T wave abnormality Confirmed by ROSEMARY SHI, BARTOLO ([id number]), scientific publications editor MILTON RUTH ([id number]) on 07/17/2018 3:08:10 PM Referred By: Manjinder Toney Confirmed By:BARTOLO RILEY MD
== END 2018-07-13 09:50 | disposition home or self-care (01) ==
LOC: CLSP 07:06 → ICU 12:08
PROVIDERS: Family Provider Nurse Practitioner Family; PCP Nurse Practitioner Family; Referring Provider Internal Medicine Cardiovascular Disease; Visit Provider Internal Medicine Cardiovascular Disease
DX: I25.110 Atherosclerotic heart disease of native coronary artery with unstable angina pectoris (principal); I65.29 Occlusion and stenosis of unspecified carotid artery; I10 Essential (primary) hypertension; E78.00 Pure hypercholesterolemia, unspecified; G47.33 Obstructive sleep apnea (adult) (pediatric); K21.9 Gastro-esophageal reflux disease without esophagitis; E66.9 Obesity, unspecified; Z68.37 Body mass index [BMI] 37.0-37.9, adult; Z95.5 Presence of coronary angioplasty implant and graft; Z79.82 Long term (current) use of aspirin; Z79.02 Long term (current) use of antithrombotics/antiplatelets; Z79.899 Other long term (current) drug therapy; Z87.891 Personal history of nicotine dependence; Z86.73 Personal history of transient ischemic attack (TIA), and cerebral infarction without residual deficits
CPT/HCPCS: 80048; 80061; 82803; 85027; 85347; 92928; 93005; 93460; 99152; 99153; C1760; J7030; J7040; C1725; C1751; C1769; C1874; C1887; C1894; C9600; Q9967

== ENCOUNTER 2018-07-31 20:37 | Emergency (ER) | payer MEDICARE, OTHER, SELFPAY ==
[2017-12-28 12:03] VITALS: BMI 36.5
[2018-07-12 10:00] VITALS: BMI 37.9
[2018-07-31 20:38] VITALS: BP 129/68; PULSE 71; RESP 15; TEMP 36.7; O2SAT 98; BMI 37.0
--- NOTE | 2018-07-31 21:27 | RAD_ITS ---
HISTORY: fall tonight. low back pain COMPARISON: None FINDINGS: # of images incl. paperwork: 3 XR Spine Lumbar 3 views: Cholecystectomy clips. Dextroscoliosis. Multilevel degenerative disc disease. Degenerative disc disease manifested by loss of disc height, endplate sclerosis, and anterior enthesophytes. Severe calcific atherosclerotic plaque within the abdominal aorta. Bowel gas pattern is normal. Facet arthropathy greater within the lower lumbar spine. No acute fracture or traumatic malalignment perceived. RAD/Lumbar Spine 2 or 3 Views IMPRESSION: Degenerative disc disease. Facet arthropathy. No acute fracture or traumatic malalignment perceived. at 2216 Reported and signed by: Davy Clark MD Electronically Signed: Davy Clark MD at 22:15 EDT Tel , Service support ,
[2018-07-31] MEDS: HYDROcodone Bitartrate/Apap 5/325 Tablet PO (21:35)
--- NOTE | 2018-07-31 21:50 | RAD_ITS ---
HISTORY: fall tonight, left hip pain EXAM: AP pelvis and 2 views of the left hip COMPARISON: None FINDINGS: # of images incl. paperwork: 3 No acute fracture of pelvis. Proximal femurs are intact. Sacroiliac joints and hip joints are normal. Femoral heads are adequately seated in their respective acetabulae. RAD/HIP, UNI W/ Pelvis 2-3 Views IMPRESSION: No evidence of acute left hip fracture.. at 2214 Reported and signed by: Davy Clark MD Electronically Signed: Davy Clark MD at 22:13 EDT Tel , Service support ,
--- NOTE | 2018-07-31 22:33 | ED.DCSUM_ITS ---
- ER Visit Summary Date of Service: 07/31/18 Chief Complaint: Back pain History of Present Illness: The patient is a 67 F who presents with a back injury. She was changing a light bulb when she fell off the chair and hit her lower back. She also complains of left hip pain. She was able to ambulate after the fall. She took nothing for this pain at home. It is worse with movement. Denies any paresthesias or anesthesia of her lower extremes. No head trauma or LOC. She is on Plavix and aspirin for coronary disease Physical Examination: Vital signs are reviewed. Back exam reveals lumbar tenderness in the spinal and paraspinal areas. She has painful range motion of the back in the left hip. She has tenderness over the left greater trochanteric area. She does have an abrasion to the lumbar spine area. GCS is 15. Her neurologic exam is normal. Test Results: X-rays of the left hip and back are normal Emergency Department Course and Treatment: Patient has contusions of both of these areas. She was given [place] here and for home. She will ice any areas that are sore. She will call her PCP for follow-up Treatment Plan: [] Disposition: Discharge Impression: Left hip contusion, lumbar contusion This note was generated with [employer] dictation software. It may contain incorrect words, spelling, and punctuation that were not noted in review of the chart prior to signing ED Disposition - Plan for ED Patient: Referrals: Leonor Orellana NP-C [Primary Care Provider] -
--- NOTE | 2018-07-31 22:33 | ED.DEP ---
ED Disposition - Plan for ED Patient: Disposition: Home or Assisted Living Instructions: ED Contusion Back Prescriptions: Hydrocodone Bitart/Apap 5-325 [[place] 5MG-325MG] 1 tab PO Q6H PRN PRN 3 Days #10 tab PRN Reason: Pain Referrals: Leonor Orellana, SERVER ADMINISTRATOR-C [Primary Care Provider] -
--- NOTE | 2018-07-31 22:34 | DCINST.ED_ITS ---
ED Disposition - Plan for ED Patient: Disposition: Home or Assisted Living Instructions: ED Contusion Back Prescriptions: Hydrocodone Bitart/Apap 5-325 [[place] 5MG-325MG] 1 tab PO Q6H PRN PRN 3 Days #10 tab PRN Reason: Pain Referrals: Leonor Orellana, PLASTIC SURGERY TECHNICIAN-C [Primary Care Provider] -
== END 2018-07-31 22:46 | disposition home or self-care (01) ==
PROVIDERS: Emergency Provider Emergency Medicine; Family Provider Nurse Practitioner Family; PCP Nurse Practitioner Family
DX: S70.02XA Contusion of left hip, initial encounter (principal); S30.0XXA Contusion of lower back and pelvis, initial encounter; W07.XXXA Fall from chair, initial encounter; Y93.89 Activity, other specified; Y92.9 Unspecified place or not applicable; I25.10 Atherosclerotic heart disease of native coronary artery without angina pectoris; Z79.82 Long term (current) use of aspirin; Z79.02 Long term (current) use of antithrombotics/antiplatelets; Z79.899 Other long term (current) drug therapy
CPT/HCPCS: 72100; 73502; 99283

== ENCOUNTER → 2019-08-22 11:07 | Outpatient (CLI) | payer MEDICARE, OTHER, SELFPAY ==
[2017-12-28 12:03] VITALS: BMI 36.5
[2019-08-10 11:15] VITALS: BMI 36.9
--- NOTE | 2019-08-22 11:09 | ECHOD_ITS ---
Reason For Study: CHEST PAIN Procedure This was a 2D Doppler, Color Flow transthoracic echocardiogram. Exam performed in department. Left Ventricle Normal size and thickness. The estimated ejection fraction is 65 %. Stage 1 diastolic dysfunction. No regional wall motion abnormalities noted. Right Ventricle Mildly dilated right ventricle. Normal systolic function. Atria Normal left atrium. Normal right atrium. Normal atrial septum. Mitral Valve The mitral valve is structurally normal. No prolapse or stenosis seen. Mild (1+) mitral valve insufficiency. Tricuspid Valve Normal tricuspid valve. Trivial tricuspid valve insufficiency. Unable to estimate RV systolic pressure due to insufficient tricuspid regurgitant envelope. Aortic Valve Trisinus/trileaflet aortic valve. Normal aortic valve. Pulmonic Valve Normal pulmonic valve. Great Vessels Normal aortic root. Normal arch. Normal inferior vena cava. Inferior vena cava collapse with sniff. Pericardium/Pleural No pericardial effusion. MMode/2D Measurements & Calculations LVIDd: 3.8 cm IVSd: 0.99 cm Ao root diam: 3.4 cm LVIDs: 2.3 cm LVPWd: 1.0 cm RVDd: 3.7 cm FS: 39.7 % LAV(MOD-bp): 42.6 ml LA A4 area: 13.6 cm2 LA dimension(2D): 3.9 cm LAV(MOD-bp) Indexed: 23.6 ml/m2 LAV(MOD-sp2): 57.2 ml LAV(MOD-sp4): 30.6 ml RA A4 area: 12.9 cm2 Time Measurements MV dec time: 0.19 sec Doppler Measurements & Calculations MV E max hilario: 76.3 cm/sec Lat Peak E' Hilario: 10.4 cm/sec Med Peak E' Hilario: 8.4 cm/sec MV A max hilario: 82.4 cm/sec E/E' lat: 7.3 E/E' med: 9.1 MV E/A: 0.93 Ao V2 max: 151.5 cm/sec LV V1 max: 116.8 cm/sec PA V2 max: 95.2 cm/sec Ao max P.2 mmHg LV V1 max P.5 mmHg TR max hilario: 204.9 cm/sec TR max P.8 mmHg Interpretation Summary The estimated ejection fraction is 65 %. Stage 1 diastolic dysfunction. Mild (1+) mitral valve insufficiency. Trivial tricuspid valve insufficiency. Unable to estimate RV systolic pressure due to insufficient tricuspid regurgitant envelope. Mildly dilated right ventricle. There is no comparison study available. Ordering Physician: Manjinder Toney Referring Physician: LIZETTE TAYLOR Performed By: Lily Millard, JOJO, RVT
== END ==
PROVIDERS: PCP Nurse Practitioner Family; Referring Provider Internal Medicine Cardiovascular Disease; Visit Provider Internal Medicine Cardiovascular Disease
DX: R07.9 Chest pain, unspecified (principal); G47.33 Obstructive sleep apnea (adult) (pediatric)
CPT/HCPCS: 93306

== ENCOUNTER → 2019-08-24 11:50 | Outpatient (CLI) | payer MEDICARE, OTHER, SELFPAY ==
[2017-12-28 12:03] VITALS: BMI 36.5
[2019-08-10 11:15] VITALS: BMI 36.9
--- NOTE | 2019-08-24 11:50 | STEWCON_ITS ---
Reason For Study: CHEST PAIN Stress Results Protocol: Miguel Protocol WITH DEFINITY Maximum Predicted HR: 152 bpm Target HR: 129 bpm % Maximum Predicted HR: 93 % DurationHeart Rate Stage (mm:ss) (bpm) BP Comment BASELINE 61 146/88 STAGE 1 3:00 123 200/64 STAGE 2 1:30 142 / SOB RECOVERY 93 158/744 CC DEFINITY FOR ENTIRE TEST Stress Duration: 4:30 mm:ss Maximum Stress HR: 142 bpm Baseline Echocardiogram Findings The estimated ejection fraction is 65 %. Stress Echo Wall motion Data Resting WM Intermediate WM Stress WM Resting Wall Motion Wall Motion Stress No regional wall motion Mid-Anterior : Mildly abnormalities noted. hypokinetic. Mid-anteroseptal : Mildly hypokinetic. Mid-Lateral : Mildly hypokinetic. EKG Data The baseline ECG displays normal sinus rhythm. The patient exercised according to the regular Miguel protocol for a total duration of 4:30. The maximum heart rate attained was 142 beats per minute. This was 93% of maximum predicted heart rate. The patient exercised into stage 2 of the Miguel protocol. During stress, there were no ST or T wave changes noted to suggest ischemia. No clinical angina was noted. Interpretation Summary The estimated ejection fraction is 65 %. Mid-Anterior : Mildly hypokinetic Mid-anteroseptal : Mildly hypokinetic Mid-Lateral : Mildly hypokinetic Abnormal, adequate, treadmill echocardiogram. Positive for ischemia by echocardiograph criteria. No anginal symptoms noted. Rare PACs and PVCs during exercise and into recovery. Below average exercise capacity for age. Hypertensive blood pressure response to exercise. The patient appeared to develop mild antral and lateral hypokinesis seen in 3 different views. Test terminated due to attainment of target heart rate and dyspnea, which may be an anginal equivalent. Final LVEF of 55%. Sensitivity affected by poor echo windows requiring Definity agent. Patient tolerated procedure well. No complications. The study was technically difficult. Contrast injection was performed. Ordering Physician: Manjinder Toney MD Referring Physician: Manjinder Toney Performed By: Lisseth Paez [facility]
== END ==
PROVIDERS: PCP Nurse Practitioner Family; Referring Provider Internal Medicine Cardiovascular Disease; Visit Provider Internal Medicine Cardiovascular Disease
DX: I25.119 Atherosclerotic heart disease of native coronary artery with unspecified angina pectoris (principal); I10 Essential (primary) hypertension; R07.9 Chest pain, unspecified; R06.00 Dyspnea, unspecified
CPT/HCPCS: 93017; 93350; Q9957; A4216; C8928

== ENCOUNTER 2019-09-05 06:59 | Day surgery (SDC) | payer MEDICARE, OTHER, SELFPAY ==
[2017-12-28 12:03] VITALS: BMI 36.5
[2019-08-10 11:15] VITALS: BMI 36.9
--- NOTE | 2019-08-28 10:27 | RAD_ITS ---
STUDY: X-RAY CHEST REASON FOR EXAM: Female, 68 years old. PRE HEART CATH TECHNIQUE: PA and lateral views of the chest. COMPARISON: Comparison is made with prior study dated May 18, 2018. FINDINGS: Hyperinflation. The lungs are clear. There is no demonstrated pleural abnormality. Normal size heart. Normal mediastinum and natanael. Normal visualized pulmonary arteries. There is atherosclerotic calcification of the aortic arch with tortuosity. There are diffuse degenerative changes of the visualized thoracic spine. Normal visualized ribs, clavicles, and shoulders. Surgical clips are seen in the right upper quadrant most likely secondary to prior cholecystectomy. RAD/Chest PA and Lateral IMPRESSION: Hyperinflation. The lungs are clear. Electronically Signed: Casey Handy, at 11:15 EDT , Service support ,
[2019-08-28 10:33] LABS: Hematocrit 39.5 % (37-47); Hemoglobin 12.9 g/dL (12.0-15.0); Mean Corp Hgb Conc 32.7 g/dL (32-36); Mean Corpuscular Hgb 30.3 pg (27.0-32.0); Mean Corpuscular Volume 92.7 fL (81-99); Mean Platelet Vol. 8.7 fl (6.2-12.0); Platelet Count 243 K/mm3 (150-450); RBC Distribution Width CV 13.9 % (11.6-14.6); RBC Distribution Width SD 46.8 fl (35.1-43.9); Red Blood Count 4.26 M/mm3 (4.2-5.4); White Blood Count 7.4 K/mm3 (4.4-11.0)
[2019-08-28 10:43] LABS: Partial Thromboplast Time 21.8 Seconds (24.1-36.2); Prothrombin Time (Protime)PT. 12.7 SECONDS (11.7-14.9)
[2019-08-28 10:57] LABS: AST(SGOT) 23 U/L (15-37); Alanine Aminotransfer ALT/SGPT 37 U/L (13-56); Albumin, Serum 3.3 g/dL (3.2-5.0); Alkaline Phosphatase 121 U/L (45-117); Anion Gap 4 (5-15); BUN 14 mg/dL (7-18); BUN/Creat Ratio 14.1 RATIO (10-20); Bilirubin, Direct 0.21 mg/dL (0.00-0.30); Calcium,Total 8.6 mg/dL (8.5-10.1); Chloride 106 mmol/L (98-107); Cholesterol 190 mg/dL (200); Creatinine, Serum 0.99 mg/dL (0.55-1.02); EST Glomerular Filtration Rate 59 mL/min (>60); Est Glom Filt Rate - Afr Amer 71 mL/min (>60); Globulin 3.7 g/dL (2.2-4.2); Glucose 101 mg/dL (74-106); High Density Lipoprotein 92 mg/dL; Sodium Level 141 mmol/L (136-145); Triglycerides 129 mg/dL; Very Low Density Lipoprotein 26 mg/dL (5-40)
[2019-09-04 07:10] VITALS: BMI 36.9
--- NOTE | 2019-09-05 08:05 | PCM.HP.BLA ---
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 07/12/2018 [id number] OM2 2.25 x 13 mm Resolute Bunn 02/23/17; PTCA/EVELIN with FFR to proximal LAD with a 3.0 x 28 Promus Synergy, post dilated with a 3.0 x 12 NC Balloon; (4) History of coronary artery stent placement Status: Chronic Comment: Successful PTCA/EVELIN ostial and mid RCA with a 2.25 x 38 Promus Synergy 07/12/2018 [id number] OM2 2.25 x 13 mm Resolute Raghu 02/23/17; FFR 0.83 of Proximal LAD, PCI-EVELIN placed (3.0 X28 Promus Synergy) per Dr. Toney @ [facility] [place] History and Physical Date of Admission: 09/05/19 [facility] [place] [address] OFFICE VISIT Date of Service: 08/10/19 MR#: [id number] Acct: [id number] Name: SLY SNELL Rep #: [id number] : 1950 Provider: Dr. Manjinder Toney MD Age/Sex: 68/F Location: [facility] Status: Signed [facility] History of Present Illness Details: Details: This is a 68-year-old female that presents here today for a cardiovascular follow-up. She previously underwent stenting. She does have a history of coronary artery disease with stenting to her OM 2 in February 2007 and LAD in December 2017. She also has a history of hypertension, hyperlipidemia, obstructive sleep apnea with CPAP, carotid enterectomy in 2012, esophageal reflux. She continued to complain of shortness of breath with exertion. With her continued shortness of breath with exertion she did undergo a heart catheterization in which she required stenting to her ostial and mid RCA on 07/12/18. Her most recent echocardiogram done in outside facility on 02/01/2017 showed an EF of 65%, normal RV pressures. Patient underwent a stress echocardiogram on 05/05/2018 which was negative for inducible ischemia. Since her last visit, the patient is complained of several episodes of what sound like atypical chest pain, relieved with several sublingual nitroglycerin. She occasionally has exertional chest pain as well but this is rare. In addition she was found to have a significant stenosis in her left internal carotid of 60 to 79%, and has made arrangements for her to undergo a visit with Dr. Eleazar Tsang at [facility] in mid August 2019. She has had no TIA or strokelike symptoms. In our office today her blood pressure is 120/60 and pulse is 76 and regular. Her physical exam is as below. Her lipids as of 07/13/2018 show an LDL of 53 and HDL of 61. Repeat lipids are pending. Intake Vital Signs 08/10/19 Height 5 ft 08/10/19 Weight: 189 lb 08/10/19 BP 120/60 08/10/19 Blood Pressure Location Lt radial 08/10/19 Position Sitting 08/10/19 Respiration 20 H 08/10/19 Pulse 76 08/10/19 Pulse Source Auscultation 08/10/19 BMI 36.9 Intake Visit Reasons: 6 m fu Allergies doxycycline Allergy (Verified 01/22/19 14:19) Unknown metoprolol Adverse Reaction (Verified 01/22/19 14:19) intermittent heart block oxycodone Adverse Reaction (Verified 01/22/19 14:19) vomiting Medications aspirin 81 mg tablet,delayed release 81 mg PO QDAY tab 05/16/17 [History Confirmed 08/10/19] sertraline 100 mg tablet 100 mg PO QDAY 05/16/17 [History Confirmed 08/10/19] clopidogrel 75 mg tablet 75 mg PO QDAY #90 tab 12/19/17 [Rx Confirmed 08/10/19] omeprazole 40 mg capsule,delayed release 40 mg PO QDAY #90 cap 12/19/17 [Rx Confirmed 08/10/19] atorvastatin 80 mg tablet 80 mg PO QHS #90 tab 01/11/18 [Rx Confirmed 08/10/19] bupropion HCl 150 mg tablet,12 hr sustained-release 150 mg PO BID 02/23/18 [History Confirmed 08/10/19] isosorbide mononitrate 60 mg tablet,extended release 24 hr 60 mg PO DAILY tab 02/23/18 [History Confirmed 08/10/19] nitroglycerin 0.4 mg sublingual tablet 0.4 mg SUBLINGUAL Q5-15M PRN #25 tab 02/23/18 [Rx Confirmed 08/10/19] furosemide 20 mg tablet 20 mg PO DAILY 07/11/18 [History Confirmed 08/10/19] amlodipine 10 mg tablet 5 mg PO QDAY 90 Days #45 tab 08/03/18 [Rx Confirmed 08/10/19] potassium chloride 10 mEq tablet,extended release(part/cryst) 10 meq PO DAILY #90 tab 08/03/18 [Rx Confirmed 08/10/19] [facility] Medical History Left carotid stenosis (Chronic) Carotid artery disease (Chronic) ERICKA (obstructive sleep apnea) (Chronic) 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 (Chronic) Obesity (Chronic) Hypertension (Chronic) Hyperlipidemia (Chronic) Carotid artery stenosis (Chronic) GERD (gastroesophageal reflux disease) (Chronic) Obstructive sleep apnea (Chronic) intermttent type 2 heart block (Chronic) Surgical History History of coronary artery stent placement (Chronic 07/12/18) H/O breast biopsy (Resolved) H/O carotid endarterectomy (Resolved ~09/05/12) History of hysterectomy (Resolved) Hx of cholecystectomy (Resolved) Family History Brother CAD (coronary artery disease) CABG Mother CAD (coronary artery disease) Diabetes Sister , Age 13 Myocarditis Social History (Updated 08/10/19 @ 11:[address] Manjinder Toney MD) Smoking Status: Former smoker Tobacco: How many years used: 40 how long ago did patient quit smokin, 0.5ppd second hand exposure: Yes alcohol intake: never caffeine: Yes Type: carbonated beverages Number of servings: 2 ROS Const Const: Positive for other (Pt referred to Dr. He for left carotid stenosis.); negative for fatigue, weakness, body ache, fever(s), headache(s), chills, frequent falls, night sweats, daytime sleepiness, difficulty sleeping, excessive sweating, weight gain, weight loss, increased appetite, poor appetite or anorexia Eyes Eyes: Negative for blind spots, loss of peripheral vision, transient loss of vision, blurry vision, change in vision, double vision, floaters, tunnel vision or other ENT ENT: Negative for headache(s), dizziness, hearing loss, tinnitus, Nosebleed/epistaxis, balance problems, post nasal drip, lip swelling, tongue swelling, bleeding gums, hoarseness, neck pain, dry mouth or other Cardio Chest Pain: Yes (Off and on, once in awhile) Frequency: other Location: left chest Resp Respiratory: Negative for SOB with activity, SOB at rest, SOB orthopnea\SOB lying down, Coughing up blood/hemoptysis, chest congestion, pain on inspiration, snoring, stridor, wheezing, crackles, paroxysmal nocturnal dyspnea or other GI GI: Negative nausea, vomiting, heartburn, constipation, belching, bloating, cramping, vomiting blood/hematemesis, bright, red blood in stools, black,tarry stools, loose stools, Difficulty Swallowing or other : Negative for hematuria, frequent nighttime urination/ nocturia, erectile dysfunction or abnormal vaginal bleeding Musc Musc: Negative for muscle aches/ myalgia, muscle weakness, joint pain or balance problems Skin Skin: Negative redness, non-healing lesions, rash, unusual bruising, skin ulcer, wounds, jaundice or other Neuro Neuro: Negative for dizziness, lightheadedness, near syncope, syncope, orthostatic symptoms, frequent falls, headache(s), weakness, confusion, memory loss, restless legs, blurry vision, double vision, vertigo, seizures, lack of coordination or other Parish Hematologic/Lymphatic: Negative for easy bleeding, easy bruising, enlarged lymph nodes or other Endo Endo: Negative for fatigue, cold intolerance, heat intolerance, excessive sweating, flushing, increased thirst/drinking, increased hunger, hair loss, hair growth or other Psych Psych: Negative for anxiety, depression, thoughts of harming anyone, thoughts of harming yourself, visual hallucinations, panic attacks or audible hallucinations Allergy Allergy/Immunology: Negative for throat swelling, Negative for tongue swelling, Negative for hives, Negative for rash, Negative for lip swelling Cardiology Exam Const Appearance: cooperative, healthy appearing and no acute distress Nutritional Appearance: well nourished Orientation: alert, oriented x3 and oriented to person Head Head: normal to inspection, normocephalic and atraumatic Nose: external nose normal Face and Sinus: face symmetric Mouth: oral mucosae normal Eyes General: appearance normal, both eyes and all related structures Eyelids: eyelids normal Conjunctivae: conjunctivae normal Pupils: PERRL and normal by confrontation EOM: EOM intact bilaterally Neck Neck: normal visual inspection and full ROM Carotids: normal carotid upstroke Chest Chest inspection: normal inspection of the chest Auscultation: Bilateral: Clear to Auscultation Cardio Palpation: normal PMI Rate: regular rate Rhythm: regular rhythm Heart sounds: S1 normal and S2 normal GI GI: normal to inspection, no hepatosplenomegaly and bowel sounds present Neuro General: alert, awake, oriented x3, CN's II-XI intact bilaterally and moves all extremities Skin Skin: no rashes or lesions noted Extremities Pulses: Normal: Right Femoral Pulse, Left Femoral Pulse, Right Dorsalis Pedis Pulse, Left Dorsalis Pedis Pulse, Right Posterior Tibial Pulse, Left Posterior Tibial Pulse, Right Radial Pulse, Left Radial Pulse Lower Extremity Edema: None: Bilateral Psych Psychological: normal affect Assessment & Plan 1. Atherosclerosis of coquille coronary artery of coquille heart with angina pectoris I25.119 Successful PTCA/EVELIN ostial and mid RCA with a 2.25 x 38 Promus Synergy, Pt had identical CP with balloon inflation as she had at home. 07/12/2018 [id number] OM2 2.25 x 13 mm Resolute Bunn 02/23/17; PTCA/EVELIN with FFR to proximal LAD with a 3.0 x 28 Promus Synergy, post dilated with a 3.0 x 12 NC Balloon; Plan 1. Coronary artery disease: Patient has had several episodes of substernal chest pressure requiring several uses of sublingual nitroglycerin although her chest pain symptoms appear to be atypical and nonexertional for the most part. Nonetheless the patient may require carotid surgery, and given her known coronary disease, I recommended that she undergo a repeat treadmill/echocardiogram. If this is grossly abnormal, the patient may require diagnostic coronary angiogram. If she has no exertional chest pain, we will continue to treat her medically. She will continue ongoing baby aspirin and Plavix given her long stent and peripheral vascular disease. In addition she will continue her Imdur, Lasix Orders Orders: Stress Test Echo w/o Contrast Today 2. Pure hypercholesterolemia E78.00 Plan 2. Hyperlipidemia: Her LDL and HDL cholesterol are fairly well controlled. Repeat lipids are pending. Continue Lipitor at high dose. Potassium and amlodipine. 3. Carotid artery disease I77.9 Plan 3. Carotid disease: The patient has progression of left internal carotid stenosis, she is status post right carotid endarterectomy by Dr. Eleazar Tsang at [facility], and she has an appointment to visit with him in mid August 2019. Continue baby aspirin and Plavix for life with her peripheral vascular disease. 4. Return office in 6 months. This note was generated using a voice recognition system and there may be incorrect words, spelling or punctuation that were not noted when reviewing the office note prior to saving. Orders Referrals: Vascular Plan Detail Other Orders Orders: Echo Complete Today G47.33 Stress Test Echo w/o Contrast Today I10, R06.00, R07.9 Referrals: Vascular I65.22 Follow Up +6M (Feng) Coding Level of Care Code Off vis,est,level 3 Diagnoses Atherosclerosis of coquille coronary artery of coquille heart with angina pectoris I25.119 ??[place] vs. transplanted heart: coquille heart Pure hypercholesterolemia E78.00 ??Hyperlipidemia type: pure hypercholesterolemia Carotid artery disease I77.9 Coding Level of Care Code Off vis,est,level 3 Diagnoses Atherosclerosis of coquille coronary artery of coquille heart with angina pectoris I25.119 ??[place] vs. transplanted heart: coquille heart Pure hypercholesterolemia E78.00 ??Hyperlipidemia type: pure hypercholesterolemia Carotid artery disease I77.9 Supplemental Info Supplemental Information Labs LDL Cholesterol 53 mg/dL (0-130) 07/13/18 HDL Cholesterol 61 mg/dL (40-) 07/13/18 Triglycerides 170 mg/dL (-199) 07/13/18 VLDL Cholesterol 34 mg/dL (5-40) 07/13/18 Diagnostics Electrocardiogram 07/13/18 Stress Echocardiogram 05/05/18 Chest X-Ray 05/18/18 Pulmonary Pulmonary Function Test 03/30/18 04/03/18 08/10/19 1144 <Electronically signed by Manjinder Toney MD> Date Manjinder Toney MD Cosigner Signature: Date (if applicable) CC: CHRISTIAN Orellana ~ Interventional cardiology addendum: Patient seen and examined, and the risk/benefits of the procedure were thoroughly explained the patient including specific attention to lack of onsite surgical backup, and patient agrees to proceed. Left heart catheterization to follow.
--- NOTE | 2019-09-05 08:59 | CL.D_ITS ---
Patient Name: SLY SNELL Study Date: 09/05/2019 Performing: Manjinder Toney MD Ht: 59.84 inches 152 cm : 1950 Wt: 189.6 lbs 86 kg Age: 68 Gender: female BSA: 1.82 PROCEDURE(S) PERFORMED TE83-AYU/COR/LV [id number], CORONARY OR GRAFT, INITIAL VESSEL CLINICAL PROFILE AND INDICATIONS Indications: New Onset Angina <= 2 months, Stable Known CAD Heart Failure: None Stress/Imaging Date: 08/24/2019Stress Echocardiogram: Positive Low Risk Angina Classification Anginal Classification w/in 2 Weeks: CCS IV CAD Presentations: Symptom unlikely to be ischemic. Comorbidities/Risk Factors: Hypertension Dyslipidemia Prior PCI CONCLUSIONS Normal LV size, wall motion,and systolic function Perserved Left Ventricular systolic function with normal EDP LVEF: by LV gram 65 % Non obstructive coronary arteries Possible significant mid LAD stenosis. RECOMMENDATIONS Staged for FFR DESCRIPTION OF PROCEDURE The patient arrived to the procedure lab. The risks and benefits of the procedure as well as a full d escription of our services here and current unavailability of surgical backup were fully explained to the patient and/or their significant other prior to the catheterization. The Timeout was completed, verifying the correct patient and procedure. The patient's procedural site was prepped and draped in the usual fashion. Local anesthetic was given subcutaneously to right groin region with Lidocaine 2%. Using a modified Seldinger technique, arterial access was obtained via the right femoral artery, a 4 Fr sheath was inserted Left Coronary Artery selective angiography was performed in multiple views us ing a 4 Fr. JL5 catheter. Right Coronary Artery selective angiography was then performed in multiple views using a 4 Fr. 3DRC catheter. Left Ventriculography was performed in GUPTA projection using a 4 Fr . Pigtail catheter. LV to AO pullback pressures were then recorded.The arterial sheath was pulled and a Mynx closure device was deployed for hemostasis CORONARY ANGIOGRAPHY DOMINANCE: Left Dominant LEFT HEART ASSESSMENT Left Ventricular Ejection Fraction: by LV Gram 65 % Normal LV wall motion Normal Left Ventricular systolic function LVEDP: 11 mmHg Normal Left Ventricular End Diastolic Pressure LEFT MAIN: Angiographically normal LEFT ANTERIOR DESCENDING ARTERY: PROX LAD: Previously placed stent is patent MID LAD: 50 % Stenosis CIRCUMFLEX ARTERY: Mild luminal irregularities less than 30% OM 1: Proximal - Mild luminal irregularities less than 30% LT PDA: Left PDA: Proximal - No significant disease noted RIGHT CORONARY ARTERY: Previously placed stent is patent COMPLICATIONS No Complications PROCEDURE MEDICATIONS Versed 1 mg IV Oxygen: 2 L/min via nasal cannula Baby Aspirin (81mg) 1 Tabs PO 09/05/2019 07:19:20 Adenosine drip for FFR 24.4 ml IV @ 09/05/2019 08:40:40 Heparin 6000 unit(s) IV 09/05/2019 08:29:05 Nitro 200 mcg IC 09/05/2019 08:33:28 Plavix 75 mg PO 09/05/2019 07:19:35 IV Bolus: .9 NaCl 300ml total 09/05/2019 08:17:41 SUMMARY OF HEMODYNAMIC DATA Time AIR REST ECG 07:20:43 ECG 07:50:46 AO 125/58 (85) SA 08:16:44 LV 146/-19, 12 08:23:46 LV 141/-19, 11 08:23:52 LVp 145/-19, 12 08:23:58 AOp 144/57 (93) 08:24:03 Signed By Manjinder Toney MD On 09/05/2019 8:58:00 AM Manjinder Toney MD
[2019-09-05 10:20] LABS: ACT Activated Clotting Time 213 sec (74-137)
== END 2019-09-05 13:15 | disposition home or self-care (01) ==
LOC: CLSP 07:00
PROVIDERS: PCP Nurse Practitioner Family; Referring Provider Internal Medicine Cardiovascular Disease; Visit Provider Internal Medicine Cardiovascular Disease
DX: R94.39 Abnormal result of other cardiovascular function study (principal); I25.119 Atherosclerotic heart disease of native coronary artery with unspecified angina pectoris; I10 Essential (primary) hypertension; K21.9 Gastro-esophageal reflux disease without esophagitis; E78.5 Hyperlipidemia, unspecified; R07.89 Other chest pain; E66.9 Obesity, unspecified; Z68.36 Body mass index [BMI] 36.0-36.9, adult; Z87.891 Personal history of nicotine dependence; Z79.899 Other long term (current) drug therapy; Z79.82 Long term (current) use of aspirin; Z79.02 Long term (current) use of antithrombotics/antiplatelets; G47.33 Obstructive sleep apnea (adult) (pediatric); I73.9 Peripheral vascular disease, unspecified
CPT/HCPCS: 36415; 71046; 80048; 80061; 80076; 85027; 85347; 85610; 85730; 93458; 99152; 99153; C1760; J0153; J7040; Q9967; C1769; C1894

== ENCOUNTER → 2020-12-08 14:35 | Outpatient (CLI) | payer MEDICARE, OTHER, SELFPAY ==
[2017-12-28 12:03] VITALS: BMI 36.5
[2020-12-08 15:39] LABS: EXAGEN MAILED SPECIMEN
[2020-12-08 17:49] LABS: Absolute Lymphocyte Count 1.69 X10^3/uL (0.83-4.51); Absolute Neutrophil Count 2.9 X10^3/uL (2.0-7.7); Basophil# 0.03 X10^3/uL; Basophil% 0.6 % (0-1); Eosinophil# 0.13 X10^3/uL; Eosinophils% 2.5 % (0-5); Hematocrit 39.5 % (37-47); Hemoglobin 12.5 g/dL (12.0-15.0); Lymphocyte # 1.69 X10^3/ul (0.83-4.51); Lymphocyte % 32.5 % (19-41); Mean Corp Hgb Conc 31.6 g/dL (32-36); Mean Corpuscular Volume 91.6 fL (81-99); Mean Platelet Vol. 9.4 fl (6.2-12.0); Monocyte# 0.47 X10^3/uL; NRBC Flagged by Analyzer 0 % (0-5); Neutrophil # 2.85 X10^3/uL (2.7-7.7); Neutrophil % 54.8 % (47-70); Platelet Count 285 K/mm3 (150-450); RBC Distribution Width CV 13.5 % (11.6-14.6); RBC Distribution Width SD 46.1 fl (35.1-43.9); Red Blood Count 4.31 M/mm3 (4.2-5.4); White Blood Count 5.2 K/mm3 (4.4-11.0)
[2020-12-08 17:59] LABS: Erythrocyte Sedimentation Rate 15 mm/hr (0-30)
[2020-12-08 18:01] LABS: Color, Urine Yellow (Yellow); Glucose, Dipstick Normal (Normal); Ketone-Dipstick Negative (Negative); Leukocyte Esterase-Dipstick Negative /ul (Negative); Nitrite-Dipstick Negative (Negative); Occult Blood-Urine 10 /ul (Negative); Protein-Dipstick Negative (Negative); Urine Bilirubin Dipstick Negative (Negative); Urine Clarity Clear (Clear); Urine Urobilinogen Normal (Normal)
[2020-12-08 18:10] LABS: Protein, Urine (Random) 15.5 mg/dL (<11.9); Protein:Creat Ratio 183 mg/g CRE (0-200)
[2020-12-08 18:18] LABS: ALB/GLOB Ratio 0.8 RATIO (0.9-2.4); AST(SGOT) 17 U/L (15-37); Alanine Aminotransfer ALT/SGPT 26 U/L (13-56); Albumin, Serum 3.5 g/dL (3.2-5.0); Alkaline Phosphatase 118 U/L (45-117); Anion Gap 7 (5-15); BUN 22 mg/dL (7-18); BUN/Creat Ratio 25.9 RATIO (10-20); CRP 3.76 mg/L (0.0-3.0); Calcium,Total 9.7 mg/dL (8.5-10.1); Chloride 107 mmol/L (98-107); Creatinine, Serum 0.85 mg/dL (0.55-1.02); EST Glomerular Filtration Rate 70 mL/min (>60); Est Glom Filt Rate - Afr Amer 85 mL/min (>60); Globulin 4.3 g/dL (2.2-4.2); Glucose 91 mg/dL (74-106); Potassium 4.3 mmol/L (3.5-5.1); Protein, Total 7.8 g/dL (6.4-8.2); Sodium Level 140 mmol/L (136-145)
[2020-12-09 08:27] LABS: Hepatitis B Surface Antibody Non-Reactive; Hepatitis B Surface Antigen Non-Reactive (Nonreactive); Hepatitis C Antibody Non-Reactive (Nonreactive)
== END ==
PROVIDERS: PCP Nurse Practitioner Family; Referring Provider Internal Medicine Rheumatology; Visit Provider Internal Medicine Rheumatology
DX: M06.4 Inflammatory polyarthropathy (principal); M79.7 Fibromyalgia; R76.8 Other specified abnormal immunological findings in serum; I10 Essential (primary) hypertension; I25.10 Atherosclerotic heart disease of native coronary artery without angina pectoris
CPT/HCPCS: 36415; 80053; 81002; 82570; 84156; 85025; 85652; 86140; 86706; 86803; 87340

== ENCOUNTER → 2021-02-17 10:54 | Outpatient (CLI) | payer MEDICARE, OTHER, SELFPAY ==
[2017-12-28 12:03] VITALS: BMI 36.5
[2021-02-17 12:39] LABS: Absolute Lymphocyte Count 1.39 X10^3/uL (0.83-4.51); Absolute Neutrophil Count 3.1 X10^3/uL (2.0-7.7); Basophil# 0.02 X10^3/uL; Basophil% 0.4 % (0-1); Eosinophils% 1.9 % (0-5); Hematocrit 36.5 % (37-47); Lymphocyte # 1.39 X10^3/ul (0.83-4.51); Lymphocyte % 26.7 % (19-41); Mean Corp Hgb Conc 32.9 g/dL (32-36); Mean Corpuscular Hgb 29.7 pg (27.0-32.0); Mean Corpuscular Volume 90.3 fL (81-99); Mean Platelet Vol. 9.2 fl (6.2-12.0); Monocyte# 0.61 X10^3/uL; Monocyte% 11.7 % (0-10); NRBC Flagged by Analyzer 0 % (0-5); Neutrophil # 3.05 X10^3/uL (2.7-7.7); Neutrophil % 58.5 % (47-70); Platelet Count 229 K/mm3 (150-450); RBC Distribution Width CV 13.9 % (11.6-14.6); RBC Distribution Width SD 46.1 fl (35.1-43.9); Red Blood Count 4.04 M/mm3 (4.2-5.4); White Blood Count 5.2 K/mm3 (4.4-11.0)
[2021-02-17 13:10] LABS: ALB/GLOB Ratio 0.8 RATIO (0.9-2.4); AST(SGOT) 23 U/L (15-37); Alanine Aminotransfer ALT/SGPT 34 U/L (13-56); Albumin, Serum 3.4 g/dL (3.2-5.0); Alkaline Phosphatase 166 U/L (45-117); Anion Gap 9 (5-15); BUN 13 mg/dL (7-18); BUN/Creat Ratio 13.8 RATIO (10-20); Calcium,Total 9.3 mg/dL (8.5-10.1); Chloride 106 mmol/L (98-107); Creatinine, Serum 0.94 mg/dL (0.55-1.02); EST Glomerular Filtration Rate 62 mL/min (>60); Est Glom Filt Rate - Afr Amer 75 mL/min (>60); Glucose 99 mg/dL (74-106); Potassium 3.8 mmol/L (3.5-5.1); Protein, Total 7.4 g/dL (6.4-8.2); Sodium Level 143 mmol/L (136-145)
== END ==
PROVIDERS: PCP Nurse Practitioner Family; Referring Provider Internal Medicine Rheumatology; Visit Provider Internal Medicine Rheumatology
DX: M06.4 Inflammatory polyarthropathy (principal); M79.7 Fibromyalgia; R76.8 Other specified abnormal immunological findings in serum; M47.897 Other spondylosis, lumbosacral region; I10 Essential (primary) hypertension; I25.10 Atherosclerotic heart disease of native coronary artery without angina pectoris; K21.9 Gastro-esophageal reflux disease without esophagitis; F32.A Depression, unspecified; E78.5 Hyperlipidemia, unspecified; G47.33 Obstructive sleep apnea (adult) (pediatric); G25.81 Restless legs syndrome
CPT/HCPCS: 36415; 80053; 85025

== ENCOUNTER → 2022-05-07 | Outpatient (CLI) | payer MEDICARE, OTHER, SELFPAY ==
[2017-12-28 12:03] VITALS: BMI 36.5
--- NOTE | 2022-05-07 17:32 | CT_ITS ---
STUDY: LOW DOSE CT LUNG CANCER SCREENING REASON FOR EXAM: Female, 71 years old. Former smoker. 40 pack year history. Quit 2017. RADIATION DOSAGE (If Supplied By Facility): CTDIvol = ( 3.02 ) mGy, DLP = ( 99.30 ) mGycm TECHNIQUE: No contrast was administered. Low dose technique was utilized (average mAS-38 and kVp 120). 1.25 mm axial source images with a slice interval of 1.25-mm were reconstructed in lung windows. 2.5 mm axial source images with a slice interval of 2.5-mm were reconstructed in lung windows. 5.0 mm axial source images with a slice interval of 5.0-mm were reconstructed in soft tissue windows. COMPARISON: Chest, August 28, 2019. NODULES: Total lung nodules (excluding granulomas): 0 Emphysema: Mild emphysematous changes. There is no evidence of infiltrate. Endobronchial lesion: None Aorta: Atherosclerotic changes without aneurysm. CORONARY ARTERIES: Coronary artery calcification are seen Heart: Normal Pulmonary artery: Normal Mediastinal nodes: None Other chest and abdominal findings: Degenerative changes of the thoracic spine. There is a dorsal column stimulator. CT/Low Dose CT Lung Screening IMPRESSION: Lung-RADS category 1 - Continue annual screening with LDCT in 12 months. IMPORTANT NOTES FOR USE: ACR Lung-RADS Version 1.1 Assessment Categories Release Date: 2018 Category: Coded 0-4 bases on nodule(s) with highest degree of suspicion. Negative screen is defined as categories 1 and 2; a positive screen is defined as categories 3 and 4. Category 3 and 4A nodules that are unchanged on interval CT should be coded as category 2, and individuals returned to screening in 12 months. Category 4X: Category 3 or 4 nodules with additional imaging findings that increase the suspicion of lung cancer, such as spiculation, GGN that doubles in size in 1 year, enlarged lymph notes, etc. Category Modifiers: S (significant finding unrelated to lung cancer) Electronically Signed: Kalen Sierra DO at 18:11 EDT Reading Location ID and State: [facility] [place] Tel [phone], Service support ,
== END | disposition home or self-care (01) ==
PROVIDERS: PCP Nurse Practitioner Family; Referring Provider Internal Medicine Critical Care Medicine; Visit Provider Internal Medicine Critical Care Medicine
DX: F17.211 Nicotine dependence, cigarettes, in remission (principal)
CPT/HCPCS: 71271

== ENCOUNTER → 2022-12-21 | Outpatient (CLI) | payer MEDICARE, OTHER, SELFPAY ==
[2017-12-28 12:03] VITALS: BMI 36.5
[2022-12-21 15:03] LABS: Absolute Lymphocyte Count 1.36 X10^3/uL (0.83-4.51); Absolute Neutrophil Count 2.2 X10^3/uL (2.0-7.7); Basophil# 0.03 X10^3/uL; Basophil% 0.7 % (0-1); Eosinophil# 0.12 X10^3/uL; Eosinophils% 2.8 % (0-5); Hematocrit 39.6 % (37-47); Hemoglobin 12.5 g/dL (12.0-15.0); Lymphocyte # 1.36 X10^3/ul (0.83-4.51); Mean Corp Hgb Conc 31.6 g/dL (32-36); Mean Corpuscular Hgb 29.4 pg (27.0-32.0); Mean Corpuscular Volume 93.2 fL (81-99); Mean Platelet Vol. 8.8 fl (6.2-12.0); Monocyte# 0.49 X10^3/uL; Monocyte% 11.5 % (0-10); NRBC Flagged by Analyzer 0 % (0-5); Neutrophil # 2.23 X10^3/uL (2.7-7.7); Neutrophil % 52.5 % (47-70); Platelet Count 276 K/mm3 (150-450); RBC Distribution Width CV 13.6 % (11.6-14.6); RBC Distribution Width SD 46.2 fl (35.1-43.9); Red Blood Count 4.25 M/mm3 (4.2-5.4); White Blood Count 4.3 K/mm3 (4.4-11.0)
[2022-12-21 15:29] LABS: BNP,B-Type NATRIURETIC PEPTIDE 32.4 pg/mL (0-100)
[2022-12-21 15:31] LABS: Anion Gap 1 (5-15); BUN 12 mg/dL (7-18); BUN/Creat Ratio 14.8 RATIO (10-20); Calcium,Total 9.5 mg/dL (8.5-10.1); Chloride 109 mmol/L (98-107); Creatinine, Serum 0.81 mg/dL (0.55-1.02); EST Glomerular Filtration Rate 74 mL/min (>60); Est Glom Filt Rate - Afr Amer 89 mL/min (>60); Glucose 91 mg/dL (74-106); Potassium 3.4 mmol/L (3.5-5.1); Sodium Level 140 mmol/L (136-145)
== END | disposition home or self-care (01) ==
LOC: LAB 14:41
PROVIDERS: PCP Nurse Practitioner Family; Visit Provider Nurse Practitioner Family
DX: R06.00 Dyspnea, unspecified (principal); I77.9 Disorder of arteries and arterioles, unspecified; I65.23 Occlusion and stenosis of bilateral carotid arteries
CPT/HCPCS: 36415; 80048; 83880; 85025

== ENCOUNTER → 2023-01-27 | Outpatient (CLI) | payer MEDICARE, OTHER, SELFPAY ==
[2017-12-28 12:03] VITALS: BMI 36.5
[2023-01-27 13:05] LABS: Anion Gap 4 (5-15); BUN 11 mg/dL (7-18); BUN/Creat Ratio 12.9 RATIO (10-20); Calcium,Total 9.3 mg/dL (8.5-10.1); Chloride 110 mmol/L (98-107); Creatinine, Serum 0.86 mg/dL (0.55-1.02); EST Glomerular Filtration Rate 69 mL/min (>60); Est Glom Filt Rate - Afr Amer 84 mL/min (>60); Glucose 131 mg/dL (74-106); Potassium 3.8 mmol/L (3.5-5.1); Sodium Level 140 mmol/L (136-145)
== END | disposition home or self-care (01) ==
PROVIDERS: PCP Nurse Practitioner Family; Referring Provider Nurse Practitioner Family; Visit Provider Nurse Practitioner Family
DX: E87.6 Hypokalemia (principal)
CPT/HCPCS: 36415; 80048

== ENCOUNTER → 2023-05-11 | Outpatient (CLI) | payer MEDICARE, OTHER, SELFPAY ==
[2017-12-28 12:03] VITALS: BMI 36.5
--- NOTE | 2023-05-11 14:46 | CT_ITS ---
STUDY: LOW DOSE CT LUNG CANCER SCREENING REASON FOR EXAM: Female, 72 years old. Smoker and gt; 20 pack years quit 2017 RADIATION DOSAGE (If Supplied By Facility): CTDIvol = ( 3.02 ) mGy, DLP = ( 93.65 ) mGycm TECHNIQUE: No contrast was administered. Low dose technique was utilized (average mAS-38 and kVp 120). 1.25 mm axial source images with a slice interval of 1.25-mm were reconstructed in lung windows. 2.5 mm axial source images with a slice interval of 2.5-mm were reconstructed in lung windows. 5.0 mm axial source images with a slice interval of 5.0-mm were reconstructed in soft tissue windows. COMPARISON: Comparison is made with prior study dated May 07, 2022. NODULES: No suspicious nodules are seen. Emphysema: Stable mild emphysematous changes. Endobronchial lesion: None Aorta: Atherosclerotic plaque formation. CORONARY ARTERIES: Coronary artery calcification is seen. Heart: Unremarkable Pulmonary artery: Unremarkable Mediastinal nodes: Small mediastinal lymph nodes. Other chest and abdominal findings: Hiatal hernia. CT/Low Dose CT Lung Screening IMPRESSION: Lung-RADS category 2 - Continue annual screening with LDCT in 12 months. IMPORTANT NOTES FOR USE: ACR Lung-RADS Version 1.1 Assessment Categories Release Date: 2018 Category: Coded 0-4 bases on nodule(s) with highest degree of suspicion. Negative screen is defined as categories 1 and 2; a positive screen is defined as categories 3 and 4. Category 3 and 4A nodules that are unchanged on interval CT should be coded as category 2, and individuals returned to screening in 12 months. Category 4X: Category 3 or 4 nodules with additional imaging findings that increase the suspicion of lung cancer, such as spiculation, GGN that doubles in size in 1 year, enlarged lymph notes, etc. Category Modifiers: S (significant finding unrelated to lung cancer) Electronically Signed: Casey Handy MD at 13:18 EDT ,
== END | disposition home or self-care (01) ==
LOC: CT 14:44
PROVIDERS: PCP Nurse Practitioner Family; Referring Provider Nurse Practitioner Acute Care; Visit Provider Nurse Practitioner Acute Care
DX: Z12.2 Encounter for screening for malignant neoplasm of respiratory organs (principal); F17.211 Nicotine dependence, cigarettes, in remission
CPT/HCPCS: 71271

== ENCOUNTER → 2023-06-02 | Outpatient (CLI) | payer MEDICARE, OTHER, SELFPAY ==
[2017-12-28 12:03] VITALS: BMI 36.5
[2023-06-02 17:21] LABS: Absolute Neutrophil Count 2.5 X10^3/uL (2.0-7.7); Basophil# 0.03 X10^3/uL; Basophil% 0.6 % (0-1); Eosinophils% 2.1 % (0-5); Lymphocyte % 35.6 % (19-41); Mean Corp Hgb Conc 33.3 g/dL (32-36); Mean Corpuscular Hgb 31.3 pg (27.0-32.0); Mean Corpuscular Volume 93.8 fL (81-99); Mean Platelet Vol. 9.1 fl (6.2-12.0); Monocyte# 0.47 X10^3/uL; Monocyte% 9.9 % (0-10); NRBC Flagged by Analyzer 0 % (0-5); Neutrophil # 2.45 X10^3/uL (2.7-7.7); Neutrophil % 51.4 % (47-70); Platelet Count 293 K/mm3 (150-450); RBC Distribution Width CV 12.8 % (11.6-14.6); RBC Distribution Width SD 43.8 fl (35.1-43.9); Red Blood Count 4.16 M/mm3 (4.2-5.4); White Blood Count 4.8 K/mm3 (4.4-11.0)
[2023-06-02 17:46] LABS: BNP,B-Type NATRIURETIC PEPTIDE 3.8 pg/mL (0-100)
[2023-06-02 17:59] LABS: Anion Gap 3 (5-15); BUN 13 mg/dL (7-18); BUN/Creat Ratio 13.9 RATIO (10-20); Calcium,Total 9.3 mg/dL (8.5-10.1); Chloride 108 mmol/L (98-107); Creatinine, Serum 0.94 mg/dL (0.55-1.02); EST Glomerular Filtration Rate 62 mL/min (>60); Est Glom Filt Rate - Afr Amer 75 mL/min (>60); Glucose 108 mg/dL (74-106); Potassium 3.7 mmol/L (3.5-5.1); Sodium Level 138 mmol/L (136-145); Thyroid Stim Hormone (TSH) 1.73 uIU/mL (0.358-3.74)
== END | disposition home or self-care (01) ==
PROVIDERS: PCP Nurse Practitioner Family; Visit Provider Nurse Practitioner Family
DX: R53.83 Other fatigue (principal); R06.09 Other forms of dyspnea; R42 Dizziness and giddiness
CPT/HCPCS: 36415; 80048; 83880; 84443; 85025

== ENCOUNTER → 2023-06-09 | Outpatient (CLI) | payer MEDICARE, OTHER, SELFPAY ==
[2017-12-28 12:03] VITALS: BMI 36.5
--- NOTE | 2023-06-09 06:15 | ECHOCS_ITS ---
Reason For Study: CHAHAL Procedure This was a 2D Doppler, Color Flow transthoracic echocardiogram. Contrast injection was performed. Exam performed in department. Left Ventricle Normal size and thickness. The left ventricular ejection fraction is 60 %. Normal diastology for age. Right Ventricle Normal right ventricle. Atria The left and right atria are normal. Bubble contrast study is negative for PFO/ASD. Mitral Valve Mild (1+) mitral valve insufficiency. Tricuspid Valve Trivial tricuspid valve insufficiency. Unable to estimate RV systolic pressure due to insufficient tricuspid regurgitant envelope. Aortic Valve Trisinus/trileaflet aortic valve. Pulmonic Valve The pulmonic valve is not well visualized. Great Vessels Normal sized aortic root. Pericardium/Pleural No pericardial effusion. Medication 22 gauge I.V. with prn adaptor inserted into left arm. Diluted definity 2ml given slow IV push to enhance endocardial definition. Performed a rapid injection of agitated mix of 9 cc saline and 1cc air to assess for atrial septal defect. MMode/2D Measurements & Calculations LVIDd: 4.7 cm IVSd: 0.92 cm Ao root diam: 3.0 cm LVIDs: 3.6 cm LVPWd: 1.0 cm LA dimension: 3.9 cm RVDd: 3.4 cm FS: 22.8 % LAV(MOD-bp): 48.0 ml LVAd ap4: 35.0 cm2 SV(MOD-sp4): 82.7 ml LAV(MOD-bp) Indexed: 26.4 ml/m2 LVLd ap4: 8.3 cm LAV(MOD-sp2): 42.1 ml EDV(MOD-sp4): 121.9 ml LAV(MOD-sp4): 52.9 ml EDV(sp4-el): 125.7 ml LVAs ap4: 17.2 cm2 LVLs ap4: 6.4 cm ESV(MOD-sp4): 39.2 ml ESV(sp4-el): 39.0 ml EF(MOD-sp4): 67.8 % EF(sp4-el): 69.0 % SV(sp4-el): 86.7 ml LA A4 area: 18.8 cm2 RA A4 area: 8.9 cm2 TAPSE: 2.2 cm Time Measurements MV dec time: 0.18 sec Doppler Measurements & Calculations MV E max hilario: 82.8 cm/sec Lat Peak E' Hilario: 11.7 cm/sec Med Peak E' Hilario: 10.0 cm/sec MV A max hilario: 97.4 cm/sec E/E' lat: 7.1 E/E' med: 8.3 MV E/A: 0.85 MV V2 max: 116.3 cm/sec MV P1/2t max hilario: 117.3 cm/sec Ao V2 max: 157.3 cm/sec MV max P.4 mmHg MV P1/2t: 69.3 msec Ao max P.9 mmHg MV V2 mean: 58.6 cm/sec Ao V2 mean: 113.8 cm/sec MV mean P.7 mmHg MV dec slope: 495.8 cm/sec2 Ao mean P.8 mmHg MV V2 VTI: 36.6 cm MVA(P1/2t): 3.2 cm2 Ao V2 VTI: 40.4 cm AV (velocity ratio): 0.67 LV V1 max: 103.4 cm/sec MR max hilario: 553.5 cm/sec PA V2 max: 95.8 cm/sec LV V1 max P.3 mmHg MR max P.5 mmHg PA V2 mean: 63.7 cm/sec LV V1 mean P.7 mmHg LV V1 mean: 77.4 cm/sec LV V1 VTI: 27.1 cm ECHO/Echo Complete W/ Contrast Interpretation Summary The left ventricular ejection fraction is 60 %. Mild (1+) mitral valve insufficiency. Ordering Physician: Tesha Wilhelm Referring Physician: Tesha Wilhelm Performed By: Adryan Fischer RCS
--- NOTE | 2023-06-09 11:31 | STRESSREP_ITS ---
Stress Test Report Date: 06/09/2023 Procedure: Exercise tolerance test/imaging study Indications: Coronary artery disease Consent: Per the patient Procedure: The patient exercised on a Miguel protocol for 4 minutes and 30 seconds achieving a peak heart rate of 133 bpm (89% predicted maximal heart rate) with a peak blood pressure 184/80 mmHg and a peak MET capacity of 7 point METs. The baseline ECG demonstrated sinus rhythm. The peak exercise ECG demonstrated no diagnostic ischemic changes. PVCs noted during exercise. The functional capacity was considered average for age. There was no complaint of chest discomfort during exercise or recovery. The examination was discontinued secondary to target heart rate being achieved. The patient was injected with 14.5 mCi of technetium 99m Cardiolite and subsequently rest SPECT Cardiolite nuclear imaging was obtained in the horizontal long, vertical long, and short axis views. Post-exercise, the patient was injected with 44.2 mCi of technetium 99m Cardiolite and subsequently stress SPECT Cardiolite nuclear imaging was obtained in the horizontal long, vertical long, and short axis views. A gated Cardiolite study at peak stress was obtained. Rest and stress SPECT Cardiolite nuclear imaging status post realignment, normalization, and attenuation correction, demonstrates the appearance of relative uniform tracer uptake and myocardial perfusion appearing within normal limits. There is end systolic thickening and brightening. The gated Cardiolite study demonstrates myocardial thickening and inward wall motion. The reported LVEF is 69%. Impression: 1. Technically adequate (percent predicted maximal heart rate greater than 85%) exercise tolerance test 2. Peak exercise ECG with no ischemic changes 3. Frequent PVCs during exercise 4. Rest and stress SPECT Cardiolite nuclear imaging demonstrate relative uniform tracer uptake and myocardial perfusion appearing within normal limits. 5. The gated Cardiolite study reports an LVEF of 69%. This note was generated with [employer] software. It may contain incorrect words, spelling, and punctuation that were not noted in checking the note before signing.
== END | disposition home or self-care (01) ==
LOC: CVS 06:13
PROVIDERS: PCP Nurse Practitioner Family; Referring Provider Physician Assistant Medical; Visit Provider Physician Assistant Medical
DX: R06.00 Dyspnea, unspecified (principal); I48.0 Paroxysmal atrial fibrillation; R42 Dizziness and giddiness; I25.119 Atherosclerotic heart disease of native coronary artery with unspecified angina pectoris; E78.00 Pure hypercholesterolemia, unspecified; I10 Essential (primary) hypertension; Z95.5 Presence of coronary angioplasty implant and graft
CPT/HCPCS: 78452; 93017; 93306; A9500; Q9957; A4216; C8929

== ENCOUNTER 2023-07-01 16:35 | Inpatient (IN) | payer MEDICARE, OTHER, SELFPAY ==
[2017-12-28 12:03] VITALS: BMI 36.5
[2023-07-01 16:35] VITALS: BP 177/90; PULSE 92; RESP 14; TEMP 36.1; O2SAT 97; BMI 37.0
--- NOTE | 2023-07-01 16:45 | EKG12_ITS ---
Test Reason : CP Blood Pressure : / mmHG Vent. Rate : 077 BPM Atrial Rate : 077 BPM P-R Int : 178 ms QRS Dur : 082 ms QT Int : 394 ms P-R-T Axes : 061 000 088 degrees QTc Int : 445 ms Normal sinus rhythm Nonspecific ST and T wave abnormality Abnormal ECG Confirmed by Javier Wilhelm ([id number]), visual effects editor ALFIE MONTIEL ([id number]) on 07/04/2023 8:50:32 AM Referred By: SUDHA/JEFF Confirmed By:Javier Wilhelm
[2023-07-01] MEDS: Aspirin 81 MG TAB.CHEW 324 MG PO (16:52)
--- NOTE | 2023-07-01 16:58 | RAD_ITS ---
INDICATION: chest pain EXAMINATION/TECHNIQUE: X-RAY - XR Chest 1 View COMPARISON: None. FINDINGS: LINES/DEVICES: None. LUNGS: No consolidation, edema or effusion. No pneumothorax. MEDIASTINUM AND CARDIOVASCULAR STRUCTURES: Cardiac silhouette not enlarged. BONES AND SOFT TISSUES: Unremarkable. Midline metallic device projects on the thoracic spine. RAD/Chest 1 View (Portable) IMPRESSION: No radiographic evidence of acute cardiopulmonary disease. Electronically Signed: Dewey Barron MD at 17:12 EDT ,
[2023-07-01 17:04] LABS: Absolute Lymphocyte Count 1.74 X10^3/uL (0.83-4.51); Absolute Neutrophil Count 2.5 X10^3/uL (2.0-7.7); Basophil# 0.01 X10^3/uL; Basophil% 0.2 % (0-1); Eosinophil# 0.08 X10^3/uL; Eosinophils% 1.7 % (0-5); Hematocrit 38.6 % (37-47); Hemoglobin 13.1 g/dL (12.0-15.0); Lymphocyte # 1.74 X10^3/ul (0.83-4.51); Lymphocyte % 36.5 % (19-41); Mean Corp Hgb Conc 33.9 g/dL (32-36); Mean Corpuscular Hgb 31.1 pg (27.0-32.0); Mean Corpuscular Volume 91.7 fL (81-99); Mean Platelet Vol. 9.3 fl (6.2-12.0); Monocyte# 0.46 X10^3/uL; Monocyte% 9.6 % (0-10); NRBC Flagged by Analyzer 0 % (0-5); Neutrophil # 2.47 X10^3/uL (2.7-7.7); Neutrophil % 51.8 % (47-70); Platelet Count 234 K/mm3 (150-450); RBC Distribution Width CV 12.5 % (11.6-14.6); RBC Distribution Width SD 41.7 fl (35.1-43.9); Red Blood Count 4.21 M/mm3 (4.2-5.4); White Blood Count 4.8 K/mm3 (4.4-11.0)
[2023-07-01 17:22] LABS: Anion Gap 3 (5-15); BUN 13 mg/dL (7-18); BUN/Creat Ratio 13.1 RATIO (10-20); Calcium,Total 9.6 mg/dL (8.5-10.1); Chloride 110 mmol/L (98-107); Creatinine, Serum 0.99 mg/dL (0.55-1.02); EST Glomerular Filtration Rate 58 mL/min (>60); Est Glom Filt Rate - Afr Amer 71 mL/min (>60); Estimated Creatinine Clearance 50.03 ml/min; Glucose 111 mg/dL (74-106); Potassium 3.5 mmol/L (3.5-5.1); Sodium Level 140 mmol/L (136-145); Troponin-I HS 1435 pg/mL (3.0-54.0)
[2023-07-01 17:35] VITALS: BP 135/58; PULSE 68; RESP 20
[2023-07-01 18:10] LABS: International Normalized Ratio 1.2; Prothrombin Time (Protime)PT. 14.7 SECONDS (11.7-14.9)
[2023-07-01 18:11] LABS: Partial Thromboplast Time 29.5 Seconds (24.1-36.2)
--- NOTE | 2023-07-01 18:19 | HP.PCM.HOS_ITS ---
HPI - General General Date of Admission: 07/01/23 Date of Service: 07/01/23 Chief Complaint: Chest pain. HPI Narrative The patient is a 72 y/o F w/ PMHx: Anxiety and Depression, Asthma, Tobacco use, CKD stage II per GFR trending, Obesity, CAD s/p PCI, Carotid disease s/p CEA, PAF, RLS, ERICKA, Hx Intermittent Type II HB, HTN, HLD, Chronic back pain w/ Hx spinal cord stimulator placement who presents to the [facility] ED on 07/01/23 with onset of chest discomfort specifically in the midsternal and mildly in the left chest with no radiation described as burning, pressure-like and tightness as well as occasional stabbing in sensation ongoing intermittently for the last 3 days although seems to be constant now over the last at least 24 hours with nausea, 1 episode of emesis, dyspnea worse when she is exerting herself with no specific diaphoresis prompting eventual ED evaluation for chest pain evaluation. She does report for the past 3 days she has had very poor appetite. From review of recent cardiac records patient has had a recent workup including: --06/09/2023 stress testing with an adequate exercise tolerance test with no ischemic changes although frequent PVCs during exercise and uniform tracer uptake and myocardial perfusion within normal limits, LVEF 69% --06/09/2023 echocardiogram with LVEF 60%, mild MVI. Currently she notes that her pain is down to 2-3 out of 10 in severity but previously at its worst her chest discomfort is been 8 out of 10 in severity. Workup in the ED included T97, heart rate 92, BP 177/90, respiratory rate 14, 97% on room air, most recent repeat vital signs heart rate 68, BP 135/58, respiratory rate 20, CBC with WBC 4.8, human 13.1, platelet 234 without marked shift, BMP with chloride 110, BUN/creatinine 13/0.99, GFR 58, glucose 111, troponin 1435, BNP pending upon evaluation, chest x-ray with no acute cardiopulmonary findings, EKG with SR with subtle lateral depressions, the ED patient initiated on heparin drip with bolus and administered full-strength aspirin therapy. Most recent cardiology evaluation date noted 06/16/2023 and follow-up blood pressure check 06/23/2023. ED discussed case with cardiology Dr. Cooley who recommended heparin drip and would plan cardiac catheterization likely Tuesday. [facility] Medical History (Updated 07/01/23 @ 18:[address] Jenn Rutherford MD) Anxiety and depression Asthma CAD (coronary artery disease) half-way current use of anticoagulant Paroxysmal atrial fibrillation Osteoporosis Nicotine dependence, cigarettes, in remission Fibroadenoma RLS (restless legs syndrome) Carotid artery disease ERICKA (obstructive sleep apnea) Nicotine dependence in remission Atherosclerotic heart disease [place] coronary artery w/angina pectoris intermttent type 2 heart block GERD (gastroesophageal reflux disease) Obesity Hypertension Hyperlipidemia Home Medications ?Medication ?Instructions ?Recorded ?Last Taken ?Type atorvastatin 80 mg tablet 80 mg PO QHS #90 tabs 01/11/18 Unknown Rx isosorbide mononitrate 60 mg 60 mg PO DAILY 02/23/18 Unknown History tablet,extended release 24 hr nitroglycerin 0.4 mg sublingual 0.4 mg sublingual Q5-15M PRN chest 02/23/18 Unknown Rx tablet pain #25 tabs furosemide 40 mg tablet 40 mg PO DAILY #3 tabs 02/02/22 Unknown Rx duloxetine 20 mg capsule,delayed 20 mg PO DAILY 04/27/22 Unknown History release cholecalciferol (vitamin D3) 1,250 1,250 mcg PO QWEEK 12/21/22 Unknown History mcg (50,000 unit) capsule potassium chloride 10 mEq 20 meq (2 x 10 mEq) PO DAILY 10 12/22/22 Unknown Rx tablet,extended release(part/cryst) meq pills for easier swallowing #180 tabs apixaban 5 mg tablet (Eliquis) 5 mg PO BID #60 tabs 01/25/23 Unknown Rx albuterol sulfate 1.25 mg/3 mL 1.25 mg inhalation Q4H PRN 06/16/23 Unknown History solution for nebulization carvedilol 3.125 mg tablet 3.125 mg PO BID #60 tabs 06/16/23 Unknown Rx cetirizine 10 mg tablet 10 mg PO QDAY 06/16/23 Unknown History fluticasone propionate 50 1 spray intranasal BID 06/16/23 Unknown History mcg/actuation nasal spray,suspension pantoprazole 40 mg tablet,delayed 40 mg PO QDAY 06/16/23 Unknown History release Allergy/AdvReac Type Severity Reaction Status Date / Time doxycycline Allergy Unknown Verified 07/01/23 16:38 metoprolol AdvReac intermittent Verified 07/01/23 16:38 heart block oxycodone AdvReac vomiting Verified 07/01/23 16:38 Family History Brother CAD (coronary artery disease) CABG Mother CAD (coronary artery disease) Diabetes Sister , Age 13 Myocarditis Cancer Sister Cancer Other Dyspnea Fatigue Surgical History S/P insertion of spinal cord stimulator History of left heart catheterization (09/05/19) History of coronary artery stent placement (07/12/18) H/O breast biopsy History of hysterectomy Hx of cholecystectomy H/O carotid endarterectomy (~09/05/12) Social History household members: spouse Smoking Status: Current every day smoker tobacco type: cigarettes Tobacco: How many years used: 40 how long ago did patient quit smokin, 0.5ppd second hand exposure: Yes alcohol intake: never substance use type: does not use caffeine: Yes Type: carbonated beverages Number of servings: 2 ROS ROS Narrative Admission Review of Systems: CONSTITUTIONAL: No weight loss, fever, chills, + weakness or fatigue. HEENT: Eyes: No visual loss, blurred vision, double vision or yellow sclerae. Ears, Nose, Throat: No hearing loss, sneezing, congestion, runny nose or sore throat. SKIN: No rash or itching, lesions, wounds. CARDIOVASCULAR: + Chest pain/stabbing/pressure/tightness. No palpitations, edema, orthopnea, syncopal events. RESPIRATORY: + Dyspnea, worse with exertion and with chest pain events. No cough or sputum, wheezing, hemoptysis. GASTROINTESTINAL: + Recently decreased appetite/anorexia, nausea, 1 episode vomiting. No constipation, diarrhea, abdominal pain, melena, BRBPR. GENITOURINARY: No dysuria, frequency, urgency or retention. NEUROLOGICAL: No headache, dizziness, syncope, paralysis, ataxia, numbness or tingling in the extremities, focal weakness, change in bowel or bladder control, seizure. MUSCULOSKELETAL: + muscle, back pain, joint pain or stiffness. HEMATOLOGIC: No anemia. + Easy bleeding/bruising. LYMPHATICS: No enlarged nodes. No history of splenectomy. PSYCHIATRIC: + History of anxiety and depression. ENDOCRINOLOGIC: No reports of sweating, cold or heat intolerance. No polyuria or polydipsia. ALLERGIES: + History of asthma and allergic rhinitis. Vital Signs Vital Signs Vital Signs: 07/01/23 16:35 07/01/23 16:53 07/01/23 17:35 Temperature 97 F L Temperature Source Temporal Pulse Rate 92 68 Respiratory Rate 14 20 H Blood Pressure 177/90 H 135/58 H Blood Pressure Mean 119 83 Pulse Ox 97 Oxygen Delivery Method Room Air Room Air Weight Weight: 189 lb 9 oz Body Mass Index (BMI) 37.0 Physical Exam Narrative Physical Examination: General: Awake, alert, oriented x 3 and cooperative, seated upright in the ED bed in no apparent distress, currently notes chest discomfort is improved and specifically points to the midsternal and mildly left of center on her chest, rates it 2-3 out of 10 down from 8 out of 10 in severity.. Skin: Normal color, normal turgor, no icterus, no cyanosis except occasional staged ecchymoses. HEENT: AT/NC, EOMI, PERRLA, MMM, no carotid bruits or JVD noted. Lungs: Mildly diminished, greater bases, mildly increased respiratory rate but no distress, no appreciated rales, ronchi or wheezing. Heart: Regular rate and rhythm; no gallop, rub audible. Abdomen: Soft, obese, NTTP, ND, distant normal BS, no appreciated HSM but habitus makes evaluation difficult. Extremities: No cyanosis, no clubbing, no marked peripheral edema. Neurological: Patient awake, alert, oriented as noted, cognitive function intact; pupils equally reactive to light and accommodation, cranial nerves grossly normal, moving all 4 extremities, no focal deficits, strength moderately to severely globally decreased secondary to acute presentation complaints. Psychiatric: Affect appears mildly flat, fatigued, no acute evidence of depressive or anxiety feelings but does have underlying history. Results Lab / Micro Data 07/01/23 16:50 07/01/23 16:50 Labs: Laboratory Results - last 24 hr 07/01/23 16:50: WBC 4.8, RBC 4.21, Hgb 13.1, Hct 38.6, MCV 91.7, MCH 31.1, MCHC 33.9, RDW Std Deviation 41.7, RDW Coeff of Tan 12.5, Plt Count 234, MPV 9.3, Immature Gran % (Auto) 0.200, Neut % (Auto) 51.8, Lymph % (Auto) 36.5, [place] % (Auto) 9.6, Eos % (Auto) 1.7, Baso % (Auto) 0.2, Absolute Neuts (auto) 2.5, Absolute Lymphs (auto) 1.74, Nucleated RBC % 0, Sodium 140, Potassium 3.5, C hloride 110 H, Carbon Dioxide 27.0, Anion Gap 3 L, BUN 13, Creatinine 0.99, Estim Creat Clear Calc 50.03, Est GFR (MDRD) Af Amer 71, Est GFR (MDRD) Non-Af 58 L, BUN/Creatinine Ratio 13.1, Glucose 111 H, Calcium 9.6, Troponin I High Sens 1435 H* 07/01/23 17:42: PT 14.7, INR 1.2, APTT 29.5 Imaging Radiology Impression Chest X-Ray 07/01/23 16:58 IMPRESSION: No radiographic evidence of acute cardiopulmonary disease. Electronically Signed: Dewey Barron MD at 17:12 EDT Reading Location ID and State: [facility] / [place] Tel , Service support , Assessment & Plan Assessment/Plan (1) NSTEMI, initial episode of care: PLAN: Plan The patient is a 72 y/o F w/ PMHx: Anxiety and Depression, Asthma, Tobacco use, CKD stage II per GFR trending, Obesity, CAD s/p PCI, Carotid disease s/p CEA, PAF, RLS, ERICKA, Hx Intermittent Type II HB, HTN, HLD, Chronic back pain w/ Hx spinal cord stimulator placement who presents to the [facility] ED on 07/01/23 with onset of chest discomfort described as burning, pressure-like and tightness in sensation as well as heaviness ongoing for greater than 6 hours with associated nausea with no emesis, diaphoresis or dyspnea associated with currently a Holter monitor in place secondary to underlying A-fib history with ongoing recent issues with dyspnea with recent reported cardiac medication changes but unclear exact type prompting eventual ED evaluation for chest pain evaluation. #1. Chest Pain w/ Acute NSTEMI: EKG in ED w/ sinus rhythm with subtle ST depressions in the lateral leads, CXR w/ no acute cardiopulmonary findings. Trop elevated, 1435. Will admit to PCU, maintain on a monitored bed, continue serial cardiac enzymes and EKGs. Obtain magnesium level upon admission. Start Heparin drip at next dose due of Eliquis with hold on Eliquis. Continue medical management w/ asa, BB, statin w/ AM FLP. ECHO requested given this acute event. Cardiology consulted, plan for cardiac catheterization per cardiology ED discussion potentially on Tuesday. ASA, NG, morphine. #2. CAD: PCI ostial and mid RCA 07/12/2018, [id number] OM2 02/23/17, FFR/PCI Proximal LAD 08/2019, will hold Eliquis dose and next dose due will initiate on heparin drip with bolus, continue statin, Coreg, not on LEEANNE inhibitor/ARB. #3. Known Asthma diagnosis with Possible underlying concurrent COPD with allergic rhinitis as noted: Will initiate on ATC budesonide therapy, PRN albuterol, HOB, IS parameters, strongly encouraged tobacco cessation. #4. Hypertension: Continue home regimen including Coreg, isosorbide, Lasix PRN hydralazine. #5. Hyperlipidemia: Continue home statin regimen. AM FLP. #6. Chronic Kidney Disease Stage II per GFR trending: Admission BUN/Cr 13/0.99, current presentation GFR 58 however primarily appears to be between 60 and 70 range, baseline renal function 0.8-0.9, repeat BMP in AM. #7. Carotid disease: Status post carotid endarterectomy, holding apixaban with plan to transition to heparin drip at next dose due, continue statin, hypertensive regimen. 06/13/2023 carotid ultrasound with bilateral vertebral arteries patent with normal antegrade flow, right internal carotid artery with mild 1 to 39% stenosis, left internal carotid artery with severe 60 to 79% stenosis noted to be stable from previous imaging. #8. PAF: We will continue patient home Coreg regimen, temporarily holding Eliquis with plan transition to heparin drip as noted at next dose due. #9. Anxiety and depression: We will continue patient home duloxetine regimen. #10. Obesity: Weight loss and lifestyle changes encouraged. #11. Allergic rhinitis: We will continue patient home cetirizine and fluticasone regimen. #12. Tobacco Abuse: Encouraged cessation, inpatient consultation per RT. #13. GERD: We will continue patient on PPI. #14. ERICKA: CPAP nightly. #15. DVT prophylaxis: Will hold patient home apixaban at next dose due and transition to heparin drip. #16. CODE status: Patient HCPOA and living will not in place but her who is present she notes would be her decision-maker if necessary. Discussed CODE status at length including difference between FULL code, DNR-CCA and DNR-CC status. Following discussions about the differences in these status, requested Full Code at this time but following lengthy discussion she notes that if she were to code and be intubated she would not want to remain on prolonged life support especially if there is no quality of life. Advanced Care Planning Face to Face Time: 16 minutes. Charges/Coding Visit Charges Inpatient E&M: 01990 Init Hosp L3 Procedures Hospitalists Procedures: 10744 Advncd Care Plan 30 Min
[2023-07-01] MEDS: Heparin Injection (Vial) 5,000 UNIT/ML VIAL IV (18:23)
[2023-07-01] MEDS: HEPARIN/D5w 25,000 UNITS 25,000 UNITS/250 ML IV.SOLN. 12 UNITS CONT INF (18:24)
--- NOTE | 2023-07-01 18:26 | EKG12_ITS ---
Test Reason : CP ADMISSION Blood Pressure : / mmHG Vent. Rate : 054 BPM Atrial Rate : 054 BPM P-R Int : 180 ms QRS Dur : 078 ms QT Int : 470 ms P-R-T Axes : 042 011 073 degrees QTc Int : 445 ms Sinus bradycardia Otherwise normal ECG When compared with ECG of 01-JUL-2023 16:41, MANUAL COMPARISON REQUIRED, DATA IS UNCONFIRMED Confirmed by Javier Wilhelm ([id number]), acquisition editor ALFIE MONTIEL ([id number]) on 07/05/2023 8:02:50 AM Referred By: IRIS Confirmed By:Javier Wilhelm
[2023-07-01 18:55] VITALS: BP 181/68; PULSE 62; RESP 18; TEMP 36.6; O2SAT 98
--- NOTE | 2023-07-01 19:07 | EDS_ITS ---
HPI History of Present Illness Chief Complaint: Chest Pain Narrative Narrative: 72-year-old female with history of CAD, A-fib, cardiac stents, on Eliquis presenting with chest pain which she has had for about 3 days. She states that she is getting chest pain with minimal exertion and sometimes at rest. She describes it as a sharp and achy pain in the center of her chest which after about 10 minutes will spread across her chest and a more of a dull persistent ache. She can give me a timeframe for how long it lasts but basically indicates it is happening most of the day. She feels lightheaded and shortness of breath when she tries to walk. She sees Dr. Kristopher mobley and she recently had a negative stress test. She states that when she had chest pain today she was picking up a basket full of close to the laundry and carrying the laundry room. She took a nitroglycerin which did help the pain. Currently she states she is not having any pain at all. She states that when she walked into the emergency room she was having pain and shortness of breath. Patient also feels like her heart is racing. She also states that she was changed from amlodipine 10 mg to carvedilol 3.125 mg the other day. She is not sure if she is in A-fib or not. 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 Paroxysmal atrial fibrillation Osteoporosis Nicotine dependence, cigarettes, in remission Fibroadenoma RLS (restless legs syndrome) Carotid artery disease ERICKA (obstructive sleep apnea) Nicotine dependence in remission Atherosclerotic heart disease [place] coronary artery w/angina pectoris intermttent type 2 heart block GERD (gastroesophageal reflux disease) Obesity Hypertension Hyperlipidemia Home Medications ?Medication ?Instructions ?Recorded ?Last Taken ?Type atorvastatin 80 mg tablet 80 mg PO QHS #90 tabs 01/11/18 Unknown Rx isosorbide mononitrate 60 mg 60 mg PO DAILY 02/23/18 Unknown History tablet,extended release 24 hr nitroglycerin 0.4 mg sublingual 0.4 mg sublingual Q5-15M PRN chest 02/23/18 Unkn own Rx tablet pain #25 tabs furosemide 40 mg tablet 40 mg PO DAILY #3 tabs 02/02/22 Unknown Rx duloxetine 20 mg capsule,delayed 20 mg PO DAILY 04/27/22 Unknown History release cholecalciferol (vitamin D3) 1,250 1,250 mcg PO QWEEK 12/21/22 Unknown History mcg (50,000 unit) capsule potassium chloride 10 mEq 20 meq (2 x 10 mEq) PO DAILY 10 12/22/22 Unknown Rx tablet,extended release(part/cryst) meq pills for easier swallowing #180 tabs apixaban 5 mg tablet (Eliquis) 5 mg PO BID #60 tabs 01/25/23 Unknown Rx albuterol sulfate 1.25 mg/3 mL 1.25 mg inhalation Q4H PRN 06/16/23 Unknown History solution for nebulization carvedilol 3.125 mg tablet 3.125 mg PO BID #60 tabs 06/16/23 Unknown Rx cetirizine 10 mg tablet 10 mg PO QDAY 06/16/23 Unknown History fluticasone propionate 50 1 spray intranasal BID 06/16/23 Unknown History mcg/actuation nasal spray,suspension pantoprazole 40 mg tablet,delayed 40 mg PO QDAY 06/16/23 Unknown History release Allergy/AdvReac Type Severity Reaction Status Date / Time doxycycline Allergy Unknown Verified 07/01/23 16:38 metoprolol AdvReac intermittent Verified 07/01/23 16:38 heart block oxycodone AdvReac vomiting Verified 07/01/23 16:38 Family History Brother CAD (coronary artery disease) CABG Mother CAD (coronary artery disease) Diabetes Sister , Age 13 Myocarditis Cancer Sister Cancer Other Dyspnea Fatigue Surgical History S/P insertion of spinal cord stimulator History of left heart catheterization (09/05/19) History of coronary artery stent placement (07/12/18) H/O breast biopsy History of hysterectomy Hx of cholecystectomy H/O carotid endarterectomy (~09/05/12) Social History household members: spouse Smoking Status: Current every day smoker tobacco type: cigarettes Tobacco: How many years used: 40 how long ago did patient quit smoking: Had previously quit in 2018 but started again, currently smoking 1 pk/wk. second hand exposure: Yes alcohol intake: never substance use type: does not use caffeine: Yes Type: carbonated beverages Number of servings: 2 ROS ROS ED Constitutional Constitutional ED: Denies chills, fever(s) or sweats Eyes Eyes: Denies blurry vision or change in vision ENT ENT ED: Denies ear pain or sore throat Cardiovascular Cardiovascular: Reports chest pain and palpitations; Denies racing heartbeat Respiratory/Chest Respiratory/Chest: Reports cough, dyspnea and dyspnea on exertion; Denies sputum Gastrointestinal Gastrointestinal: Denies abdominal pain, constipation, diarrhea, nausea or vomiting Genitourinary Genitourinary ED: Denies dysuria, hematuria or urinary frequency Musculoskeletal Musculoskeletal: Denies arthralgias, myalgias or neck pain Integumentary Denies abscess, Abrasions or rash Neurologic Neurologic: Denies headache(s), paresthesias or weakness Psychiatric Psychiatric: Denies anxiety, depression, suicidal ideation or suicidal thoughts Endocrine Endocrinology: Denies polydipsia or polyuria EXAM Physical Exam Const Vital Signs: 07/01/23 16:35 07/01/23 16:53 07/01/23 17:35 Temperature 97 F L Temperature Source Temporal Pulse Rate 92 68 Respiratory Rate 14 20 H Blood Pressure 177/90 H 135/58 H Blood Pressure Mean 119 83 Pulse Ox 97 Oxygen Delivery Method Room Air Room Air Positive well nourished and obese General Appearance ED: Negative for pallor Nutritional Appearance: obese HEENT Reports moist mucous membranes normocephalic and atraumatic Chest Wall inspection of chest normal Resp normal respiratory effort and clear to auscultation bilaterally Auscultation: Negative for rales, rhonchi or wheezes Cardio regular rate and regular rhythm Neuro oriented x3 and CN's II-XII intact bilaterally Sensorium / Orientation: awake and alert Psych mental status grossly normal Skin no rashes or lesions noted General Skin Exam: Negative for jaundice or pallor Heart Score History: Highly Suspicious ECG: Nonspecific Repolarization Age: >/= 65 years Risk Factors: >/= 3 Risk Factors or History of CAD Troponin: >/=3 x Normal Limit Score: 9 MDM MDM MDM Narrative Medical decision making narrative: 72-year-old female presenting with chest pain which is mostly exertional. She has CAD, cardiac stents. She is also on Eliquis. I low suspicion for PE although cardiac etiology is most likely. Differential includes ACS, CHF, pneumonia, COPD, dehydration, anemia, electrolyte abnormalities. Patient placed on monitor. IV line was established. She is not having any pain while she is resting in the bed. CBC shows a normal white blood cell count of 4.8. Hemoglobin 13.1. Platelets are normal at 234. Renal function and electrolytes are normal. High-sensitivity troponin came back at 1435. EKG on my interp retation shows sinus rhythm at [address] segment depressions from V3 to V6 without reciprocal changes. No STEMI. Chest x-ray on my interpretation shows no acute cardiopulmonary process. Discussed the case with Dr. Cooley who recommended heparin drip without a bolus that she is on Eliquis and monitoring. He plans to do cardiac catheterization on Tuesday. Patient discussed with the hospitalist for admission. Impression: 1. Chest pain 2. NSTEMI Lab Data Attestation: I reviewed the patient's lab results. Labs: Laboratory Results - last 24 hr 07/01/23 07/01/23 16:50 17:42 WBC 4.8 RBC 4.21 Hgb 13.1 Hct 38.6 MCV 91.7 MCH 31.1 MCHC 33.9 RDW Std Deviation 41.7 RDW Coeff of Tan 12.5 Plt Count 234 MPV 9.3 Immature Gran % (Auto) 0.200 Neut % (Auto) 51.8 Lymph % (Auto) 36.5 Mccreary % (Auto) 9.6 Eos % (Auto) 1.7 Baso % (Auto) 0.2 Absolute Neuts (auto) 2.5 Absolute Lymphs (auto) 1.74 Nucleated RBC % 0 PT 14.7 INR 1.2 APTT 29.5 Sodium 140 Potassium 3.5 Chloride 110 H Carbon Dioxide 27.0 Anion Gap 3 L BUN 13 Creatinine 0.99 Estim Creat Clear Calc 50.03 Est GFR (MDRD) Af Amer 71 Est GFR (MDRD) Non-Af 58 L BUN/Creatinine Ratio 13.1 Glucose 111 H Calcium 9.6 Magnesium 2.0 Troponin I High Sens 1435 H* Radiography Diagnostic Testing: Clinical Impression(s) from Imaging Studies Chest X-Ray 07/01/23 16:58 IMPRESSION: No radiographic evidence of acute cardiopulmonary disease. Electronically Signed: Dewey Barron MD at 17:12 EDT , Discharge Plan Disposition Disposition: Acute Care Hospital [facility] Discharge Date/Time: 07/01/23 18:58
[2023-07-01 19:25] LABS: BNP,B-Type NATRIURETIC PEPTIDE 88.4 pg/mL (0-100)
[2023-07-01 19:28] VITALS: BP 171/75; PULSE 60; RESP 18; TEMP 36.7; O2SAT 98
[2023-07-01] MEDS: Acetaminophen 325 MG Tablet 650 MG PO (20:16)
[2023-07-01 20:19] VITALS: BMI 36.1
[2023-07-01 20:30] LABS: Troponin-I HS 1775 pg/mL (3.0-54.0)
[2023-07-01 22:00] VITALS: PULSE 51; RESP 16; O2SAT 98
[2023-07-01 22:45] VITALS: PULSE 56; RESP 16; O2SAT 96
[2023-07-01] MEDS: Budesonide Respules 0.5 MG/2 ML AMPUL.NEB. INHALATION (22:45)
[2023-07-01] MEDS: Fluticasone 0.05% 1 SPRAY NASAL.SRY NASAL (23:14)
[2023-07-01] MEDS: LORazepam 0.5 MG Tablet PO (23:15)
[2023-07-01] MEDS: Carvedilol 3.125 MG TABLET PO (23:16)
[2023-07-01] MEDS: Atorvastatin Calcium 80 MG Tablet PO (23:17)
[2023-07-01 23:38] LABS: Troponin-I HS 3044 pg/mL (3.0-54.0)
[2023-07-02] VITALS (8 sets, daily range): BP systolic 129–182; BP diastolic 61–89; PULSE 51–66; RESP 16–18; TEMP 36.1–36.4; O2SAT 95–99; BMI 36.1
[2023-07-02 02:18] LABS: Partial Thromboplast Time > 200.0 Seconds (24.1-36.2)
--- NOTE | 2023-07-02 05:55 | ECHOD_ITS ---
Reason For Study: NSTEMI Procedure This was a 2D Doppler, Color Flow transthoracic echocardiogram. Exam performed portable in patient room. Left Ventricle Normal LV size. The estimated ejection fraction is 65 %. No evidence for diastolic dysfunction. No regional wall motion abnormalities noted. Right Ventricle Normal RV size. Normal systolic function. Atria The left and right atria are normal. No doppler evidence for ASD. Mitral Valve There is no mitral valve stenosis. Trivial mitral valve insufficiency. Tricuspid Valve There is no tricuspid stenosis. Unable to estimate RV systolic pressure due to inadequate jet, pulmonary artery pressure probably normal. Aortic Valve Trisinus/trileaflet aortic valve. There is no aortic stenosis. No aortic valve insufficiency. Pulmonic Valve There is no pulmonic valvular stenosis. No pulmonic valve insufficiency. Great Vessels Normal aortic root. Pericardium/Pleural No pericardial effusion. MMode/2D Measurements & Calculations LVIDd: 4.2 cm IVSd: 1.2 cm Ao root diam: 3.2 cm LVIDs: 2.8 cm LVPWd: 1.1 cm LA dimension: 3.9 cm FS: 32.5 % LAV(MOD-sp2): 30.7 ml TAPSE: 1.8 cm Time Measurements MV dec time: 0.16 sec Doppler Measurements & Calculations MV E max hilario: 83.6 cm/sec Lat Peak E' Hilario: 8.6 cm/sec Med Peak E' Hilario: 11.3 cm/sec MV A max hilario: 75.9 cm/sec E/E' lat: 9.7 E/E' med: 7.4 MV E/A: 1.1 MV V2 max: 108.1 cm/sec MV P1/2t max hilario: 109.2 cm/sec Ao V2 max: 132.4 cm/sec MV max P.7 mmHg MV P1/2t: 64.7 msec Ao max P.0 mmHg MV V2 mean: 52.7 cm/sec Ao V2 mean: 96.3 cm/sec MV mean P.4 mmHg MV dec slope: 494.3 cm/sec2 Ao mean P.1 mmHg MV V2 VTI: 37.4 cm MVA(P1/2t): 3.4 cm2 Ao V2 VTI: 38.1 cm AV (velocity ratio): 0.74 LV V1 max: 94.2 cm/sec MR max hilario: 559.1 cm/sec PA V2 max: 86.9 cm/sec LV V1 max P.6 mmHg MR max P.0 mmHg PA V2 mean: 61.8 cm/sec LV V1 mean P.2 mmHg LV V1 mean: 70.9 cm/sec LV V1 VTI: 28.1 cm TR max hilario: 264.2 cm/sec TR max P.9 mmHg ECHO/Echo Complete Interpretation Summary The estimated ejection fraction is 65 %. No evidence for diastolic dysfunction. Trivial mitral valve insufficiency. Ordering Physician: Jenn Rutherford Performed By: Adryan Fischer RCS
[2023-07-02] MEDS: Budesonide Respules 0.5 MG/2 ML AMPUL.NEB. INHALATION (07:04)
[2023-07-02] MEDS: Carvedilol 3.125 MG TABLET PO ×2 (08:41→20:45)
[2023-07-02] MEDS: Pantoprazole Sodium 40 MG Tablet PO (08:41)
[2023-07-02] MEDS: Aspirin E.C. 81 MG Tablet PO (08:41)
[2023-07-02] MEDS: Potassium Chloride Oral Tablet 20 MEQ PO (08:41)
[2023-07-02] MEDS: Loratadine 10 MG Tablet PO (08:41)
[2023-07-02] MEDS: Isosorbide Mononitrate 60 MG Tablet PO (08:42)
[2023-07-02] MEDS: Furosemide 40 MG Tablet PO (08:42)
[2023-07-02] MEDS: DULoxetine Hcl 20 MG Capsule PO (08:43)
[2023-07-02] MEDS: Fluticasone 0.05% 1 SPRAY NASAL.SRY NASAL (08:43)
[2023-07-02 09:07] LABS: Partial Thromboplast Time 85.7 Seconds (24.1-36.2)
[2023-07-02 09:22] LABS: Absolute Neutrophil Count 1.7 X10^3/uL (2.0-7.7); Basophil# 0.03 X10^3/uL; Basophil% 0.7 % (0-1); Eosinophil# 0.09 X10^3/uL; Eosinophils% 2.1 % (0-5); Hematocrit 38.2 % (37-47); Hemoglobin 12.5 g/dL (12.0-15.0); Mean Corp Hgb Conc 32.7 g/dL (32-36); Mean Corpuscular Hgb 30.5 pg (27.0-32.0); Mean Corpuscular Volume 93.2 fL (81-99); Mean Platelet Vol. 9.9 fl (6.2-12.0); Monocyte# 0.51 X10^3/uL; Monocyte% 12.1 % (0-10); NRBC Flagged by Analyzer 0 % (0-5); Neutrophil # 1.67 X10^3/uL (2.7-7.7); Neutrophil % 39.6 % (47-70); Platelet Count 223 K/mm3 (150-450); RBC Distribution Width CV 12.7 % (11.6-14.6); RBC Distribution Width SD 43.1 fl (35.1-43.9); White Blood Count 4.2 K/mm3 (4.4-11.0)
[2023-07-02 09:51] LABS: ALB/GLOB Ratio 0.9 RATIO (0.9-2.4); AST(SGOT) 28 U/L (15-37); Alanine Aminotransfer ALT/SGPT 23 U/L (13-56); Albumin, Serum 3.3 g/dL (3.2-5.0); Alkaline Phosphatase 101 U/L (45-117); Anion Gap 5 (5-15); BUN 13 mg/dL (7-18); BUN/Creat Ratio 15.3 RATIO (10-20); Calcium,Total 9.6 mg/dL (8.5-10.1); Chloride 109 mmol/L (98-107); Cholesterol 142 mg/dL (200); Creatinine, Serum 0.85 mg/dL (0.55-1.02); EST Glomerular Filtration Rate 70 mL/min (>60); Est Glom Filt Rate - Afr Amer 84 mL/min (>60); Estimated Creatinine Clearance 57.48 ml/min; Globulin 3.7 g/dL (2.2-4.2); Glucose 93 mg/dL (74-106); High Density Lipoprotein 55 mg/dL; Potassium 3.3 mmol/L (3.5-5.1); Sodium Level 139 mmol/L (136-145); Triglycerides 92 mg/dL; Very Low Density Lipoprotein 18 mg/dL (5-40)
--- NOTE | 2023-07-02 15:21 | CON.PCM.CA_ITS ---
Assessment & Plan Assessment/Plan (1) NSTEMI, initial episode of care: PLAN: Continue IV heparin. Cardiac cath on Tuesday. Risks and benefits discussed with the patient. Patient is willing to proceed. Eliquis is on hold for cardiac cath on Tuesday. Continue aspirin. (2) Paroxysmal atrial fibrillation: PLAN: Continue present management. Eliquis is on hold. HPI Consult Data Date of Consult: 07/02/23 HPI Narrative Reason for Consultation: Non-STEMI HPI Narrative: SLY SNELL, is a 72 F who presents with chest pain. Troponin was elevated. 2D echo revealed preserved EF. Patient has history of prior PCI. 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 Paroxysmal atrial fibrillation Osteoporosis Nicotine dependence, cigarettes, in remission Fibroadenoma RLS (restless legs syndrome) Carotid artery disease ERICKA (obstructive sleep apnea) Nicotine dependence in remission Atherosclerotic heart disease [place] coronary artery w/angina pectoris intermttent type 2 heart block GERD (gastroesophageal reflux disease) Obesity Hypertension Hyperlipidemia Home Medications ?Medication ?Instructions ?Recorded ?Last Taken ?Type atorvastatin 80 mg tablet 80 mg PO QHS #90 tabs 01/11/18 Unknown Rx isosorbide mononitrate 60 mg 60 mg PO DAILY 02/23/18 Unknown History tablet,extended release 24 hr nitroglycerin 0.4 mg sublingual 0.4 mg sublingual Q5-15M PRN chest 02/23/18 Unknown Rx tablet pain #25 tabs furosemide 40 mg tablet 40 mg PO DAILY #3 tabs 02/02/22 Unknown Rx duloxetine 20 mg capsule,delayed 20 mg PO DAILY 04/27/22 Unknown History release cholecalciferol (vitamin D3) 1,250 1,250 mcg PO QWEEK 12/21/22 Unknown History mcg (50,000 unit) capsule potassium chloride 10 mEq 20 meq (2 x 10 mEq) PO DAILY 10 12/22/22 Unknown Rx tablet,extended release(part/cryst) meq pills for easier swallowing #180 tabs apixaban 5 mg tablet (Eliquis) 5 mg PO BID #60 tabs 01/25/23 Unknown Rx albuterol sulfate 1.25 mg/3 mL 1.25 mg inhalation Q4H PRN 06/16/23 Unknown History solution for nebulization carvedilol 3.125 mg tablet 3.125 mg PO BID #60 tabs 06/16/23 Unknown Rx cetirizine 10 mg tablet 10 mg PO QDAY 06/16/23 Unknown History fluticasone propionate 50 1 spray intranasal BID 06/16/23 Unknown History mcg/actuation nasal spray,suspension pantoprazole 40 mg tablet,delayed 40 mg PO QDAY 06/16/23 Unknown History release Allergy/AdvReac Type Severity Reaction Status Date / Time doxycycline Allergy Unknown Verified 07/01/23 16:38 metoprolol AdvReac intermittent Verified 07/01/23 16:38 heart block oxycodone AdvReac vomiting Verified 07/01/23 16:38 Family History Brother CAD (coronary artery disease) CABG Mother CAD (coronary artery disease) Diabetes Sister , Age 13 Myocarditis Cancer Sister Cancer Other Dyspnea Fatigue Surgical History S/P insertion of spinal cord stimulator History of left heart catheterization (09/05/19) History of coronary artery stent placement (07/12/18) H/O breast biopsy History of hysterectomy Hx of cholecystectomy H/O carotid endarterectomy (~09/05/12) Social History household members: spouse Smoking Status: Current every day smoker tobacco type: cigarettes Tobacco: How many years used: 40 how long ago did patient quit smoking: Had previously quit in 2018 but started again, currently smoking 1 pk/wk. second hand exposure: Yes alcohol intake: never substance use type: does not use caffeine: Yes Type: carbonated beverages Number of servings: 2 Physical Exam Const alert and oriented x3 HEENT normocephalic Eyes no scleral icterus Resp normal respiratory effort Cardio regular rate Risk Stratification Risk Stratification Applicable: No Charges/Coding Visit Charges Inpatient E&M: 17504 Init Hosp L2 Objective Data Vital Signs: Vital Signs Temp Pulse Resp BP Pulse Ox O2 Del Method FiO2 97.1 F L 60 18 129/61 H 97 Room Air 21 07/02/23 13:32 07/02/23 13:32 07/02/23 13:32 07/02/23 13:32 07/02/23 13:32 07/02/23 13:32 07/02/23 00:30 Oxygen Delivery Method Room Air Weight: 184 lb 15.485 oz Body Mass Index (BMI) 36.1 Intake & Output: Intake and Output for Last 24 Hours 06/30/23 07/01/23 07/02/23 23:59 23:59 23:59 Intake Total 145.5 / 145.5 Balance 145.5 / 145.5 Lab / Micro Data 07/02/23 08:16 07/02/23 08:16 Labs: Laboratory Results - last 24 hr 07/01/23 16:50: WBC 4.8, RBC 4.21, Hgb 13.1, Hct 38.6, MCV 91.7, MCH 31.1, MCHC 33.9, RDW Std Deviation 41.7, RDW Coeff of Tan 12.5, Plt Count 234, MPV 9.3, Immature Gran % (Auto) 0.200, Neut % (Auto) 51.8, Lymph % (Auto) 36.5, [place] % (Auto) 9.6, Eos % (Auto) 1.7, Baso % (Auto) 0.2, Absolute Neuts (auto) 2.5, Absolute Lymphs (auto) 1.74, Nucleated RBC % 0, Sodium 140, Potassium 3.5, C hloride 110 H, Carbon Dioxide 27.0, Anion Gap 3 L, BUN 13, Creatinine 0.99, Estim Creat Clear Calc 50.03, Est GFR (MDRD) Af Amer 71, Est GFR (MDRD) Non-Af 58 L, BUN/Creatinine Ratio 13.1, Glucose 111 H, Calcium 9.6, Magnesium 2.0, T roponin I High Sens 1435 H*, B-Natriuretic Peptide 88.4 07/01/23 17:42: PT 14.7, INR 1.2, APTT 29.5 07/01/23 19:42: Troponin I High Sens 1775 H* 07/01/23 22:57: Troponin I High Sens 3044 H* 07/02/23 00:35: APTT Cancelled 07/02/23 01:48: APTT > 200.0 H* 07/02/23 08:16: WBC 4.2 L, RBC 4.10 L, Hgb 12.5, Hct 38.2, MCV 93.2, MCH 30.5, MCHC 32.7, RDW Std Deviation 43.1, RDW Coeff of Tan 12.7, Plt Count 223, MPV 9.9, Immature Gran % (Auto) 0.500, Neut % (Auto) 39.6 L, Lymph % (Auto) 45.0 H, [place] % (Auto) 12.1 H, Eos % (Auto) 2.1, Baso % (Auto) 0.7, Absolute Neuts (auto) 1.7 L, Absolute Lymphs (auto) 1.90, Nucleated RBC % 0, Sodium 139, Potassium 3.3 L, Chloride 109 H, Carbon Dioxide 25.0, Anion Gap 5, BUN 13, Creatinine 0.85, Estim Creat Clear Calc 57.48, Est GFR (MDRD) Af Amer 84, Est GFR (MDRD) Non-Af 70, BUN/Creatinine Ratio 15.3, Glucose 93, Calcium 9.6, Total Bilirubin 1.10 H, AST 28, ALT 23, Alkaline Phosphatase 101, Total Protein 7.0, Albumin 3.3, Globulin 3.7, Albumin/Globulin Ratio 0.9, Triglycerides 92, Cholesterol 142, LDL Cholesterol 69, VLDL Cholesterol 18, HDL Cholesterol 55 07/02/23 08:25: APTT 85.7 H Cardiology Labs/Tests 07/01/23 16:50: WBC 4.8, RBC 4.21, Hgb 13.1, Hct 38.6, MCV 91.7, MCH 31.1, MCHC 33.9, Plt Count 234, MPV 9.3, Immature Gran % (Auto) 0.200, Neut % (Auto) 51.8, Lymph % (Auto) 36.5, [place] % (Auto) 9.6, Eos % (Auto) 1.7, Baso % (Auto) 0.2, Absolute Neuts (auto) 2.5, Nucleated RBC % 0, Sodium 140, Potassium 3.5, C hloride 110 H, Carbon Dioxide 27.0, Anion Gap 3 L, BUN 13, Creatinine 0.99, Est GFR (MDRD) Af Amer 71, Est GFR (MDRD) Non-Af 58 L, BUN/Creatinine Ratio 13.1, G lucose 111 H, Calcium 9.6, Magnesium 2.0, B-Natriuretic Peptide 88.4 07/01/23 17:42: PT 14.7, INR 1.2, APTT 29.5 07/02/23 00:35: APTT Cancelled 07/02/23 01:48: APTT > 200.0 H* 07/02/23 08:16: WBC 4.2 L, RBC 4.10 L, Hgb 12.5, Hct 38.2, MCV 93.2, MCH 30.5, MCHC 32.7, Plt Count 223, MPV 9.9, Immature Gran % (Auto) 0.500, Neut % (Auto) 39.6 L, Lymph % (Auto) 45.0 H, [place] % (Auto) 12.1 H, Eos % (Auto) 2.1, Baso % (Auto) 0.7, Absolute Neuts (auto) 1.7 L, Nucleated RBC % 0, Sodium 139, P otassium 3.3 L, Chloride 109 H, Carbon Dioxide 25.0, Anion Gap 5, BUN 13, Creatinine 0.85, Est GFR (MDRD) Af Amer 84, Est GFR (MDRD) Non-Af 70, BUN/Creatinine Ratio 15.3, Glucose 93, Calcium 9.6, Total Bilirubin 1.10 H, Triglycerides 92, Cholesterol 142, LDL Cholesterol 69, VLDL Cholesterol 18, HDL Cholesterol 55 07/02/23 08:25: APTT 85.7 H Rhythm: EKG: ECHO: Stress Test: Cardiac Cath: PCI: CT Surgery: Holter monitor: EPS: PPM: CXR: Chest CT Scan: Radiography Diagnostic Testing: Radiology Impression Chest X-Ray 07/01/23 16:58 IMPRESSION: No radiographic evidence of acute cardiopulmonary disease. Electronically Signed: Dewey Barron MD at 17:12 EDT , Echocardiogram 07/02/23 05:55 Interpretation Summary The estimated ejection fraction is 65 %. No evidence for diastolic dysfunction. Trivial mitral valve insufficiency. Ordering Physician: Jenn Rutherford Performed By: Adryan Fischer RCS
--- NOTE | 2023-07-02 16:55 | CASEMGMT ---
KAYLI CAMACHO INITIAL HOSPICE NURSE PRACTITIONER CM to room for initial transition planning/care coordination assessment. KAYLI CAMACHO introduced self and role at [facility]. Pt resting in bed, @ bedside. Pt willing to participate in assessment,and able to answer all questions appropriately. Care providers, pharmacy, and demographics verified. PCP: Leonor Orellana NP Specialists: Dr Fernandez, [facility]/cardiology, Dr Aaron in [place]-vascular. Dr Summers/content publisher referred pt to EPS specialist @ [facility]--appt is July 18. Pt does not remember name of doctor. Dr Pires. Preferred Pharmacy: [facility] retail @ discharge. Otherwise, [facility] [place]. Insurance: MCR A/B, MMO Prescription Benefit: Yes Living Will/HPOA: Does not have LW or HCPOA. Pt is interested in completing. SW order placed. Pt made aware if SW unable to complete while @ [facility], this can be completed w/SW as an OP. LNOK: , 3 daughters. Living Arrangements: Lives with in a split level home. 3 steps to enter home. Pt states able to navigate them well. Pt independent at home w/all ADL's. Pt and share home mgnt tasks. Transportation: Pt and both drive. DME: Pt has a CPAP and nebulizer. There is a chair lift in the home b/w all the levels of the home that her uses, but is available for pt to use if she would need it. HHC/SNF: No hx of either. No needs identified. CM to follow for any further discharge planning needs that may arise. Plan: Home Kamila CLINTON RN, CM
[2023-07-02] MEDS: HEPARIN/D5w 25,000 UNITS 25,000 UNITS/250 ML IV.SOLN. 8 UNITS CONT INF (17:17)
--- NOTE | 2023-07-02 18:09 | PN.HOSP_ITS ---
Reason for Visit Reason for Visit: Diagnoses Non-ST elevation (NSTEMI) myocardial infarction (07/01/23) Paroxysmal atrial fibrillation (07/01/23) Subjective Subjective Patient was seen and examined today, she does not complain of any chest pain or shortness of breath. Echocardiogram showed a normal EF, I talked briefly with cardiology about her care today, she remains on a heparin drip at this time Objective Data Objective Data Vital Signs: Vital Signs Temp Pulse Resp BP Pulse Ox O2 Del Method FiO2 97.1 F L 60 18 129/61 H 97 Room Air 21 07/02/23 13:32 07/02/23 13:32 07/02/23 13:32 07/02/23 13:32 07/02/23 13:32 07/02/23 13:32 07/02/23 00:30 Oxygen Delivery Method Room Air Weight: 83.9 kg Body Mass Index (BMI) 36.1 Intake & Output: Intake and Output for Last 24 Hours 06/30/23 07/01/23 07/02/23 23:59 23:59 23:59 Intake Total 205.64 / 205.64 Balance 205.64 / 205.64 Lab / Micro Data 07/02/23 08:16 07/02/23 08:16 Labs: Laboratory Results - last 24 hr 07/01/23 16:50: Magnesium 2.0, B-Natriuretic Peptide 88.4 07/01/23 17:42: PT 14.7, INR 1.2, APTT 29.5 07/01/23 19:42: Troponin I High Sens 1775 H* 07/01/23 22:57: Troponin I High Sens 3044 H* 07/02/23 00:35: APTT Cancelled 07/02/23 01:48: APTT > 200.0 H* 07/02/23 08:16: WBC 4.2 L, RBC 4.10 L, Hgb 12.5, Hct 38.2, MCV 93.2, MCH 30.5, MCHC 32.7, RDW Std Deviation 43.1, RDW Coeff of Tan 12.7, Plt Count 223, MPV 9.9, Immature Gran % (Auto) 0.500, Neut % (Auto) 39.6 L, Lymph % (Auto) 45.0 H, [place] % (Auto) 12.1 H, Eos % (Auto) 2.1, Baso % (Auto) 0.7, Absolute Neuts (auto) 1.7 L, Absolute Lymphs (auto) 1.90, Nucleated RBC % 0, Sodium 139, Potassium 3.3 L, Chloride 109 H, Carbon Dioxide 25.0, Anion Gap 5, BUN 13, Creatinine 0.85, Estim Creat Clear Calc 57.48, Est GFR (MDRD) Af Amer 84, Est GFR (MDRD) Non-Af 70, BUN/Creatinine Ratio 15.3, Glucose 93, Calcium 9.6, Total Bilirubin 1.10 H, AST 28, ALT 23, Alkaline Phosphatase 101, Total Protein 7.0, Albumin 3.3, Globulin 3.7, Albumin/Globulin Ratio 0.9, Triglycerides 92, Cholesterol 142, LDL Cholesterol 69, VLDL Cholesterol 18, HDL Cholesterol 55 07/02/23 08:25: APTT 85.7 H 07/02/23 16:11: APTT 63.0 H Radiography Diagnostic Testing: Radiology Impression Echocardiogram 07/02/23 05:55 Interpretation Summary The estimated ejection fraction is 65 %. No evidence for diastolic dysfunction. Trivial mitral valve insufficiency. Ordering Physician: Jenn Rutherford Performed By: Adryan Fischer RCS Physical Exam Const alert, oriented x3, no apparent distress and healthy appearing General Appearance: cooperative, well kempt and well developed Orientation / Consciousness: awake, oriented to person, oriented to place and oriented to time HEENT normocephalic, head/scalp atraumatic and moist oral mucous membranes Eyes PERRL, EOMs intact bilaterally and conjunctivae normal Neck supple, no JVD, thyroid normal and no carotid bruits General: trachea midline Resp normal respiratory effort, no retractions, no use of accessory muscles and clear to auscultation bilaterally Auscultation: Negative for rales, rhonchi or wheezes Cardio regular rate, regular rhythm, S1 normal heart sound, S2 normal heart sound, no murmurs, no rub and no gallops GI normal to inspection, nondistended, normoactive bowel sounds, soft to palpation, non-tender and non-distended Extremity no clubbing, cyanosis or edema Skin no rashes or lesions noted General Skin Exam: no breakdown Neuro oriented x3, CN's II-XII intact bilaterally, no focal motor deficits and no sensory deficits noted Sensorium / Orientation: awake and alert Speech: speech normal Psych affect normal Assessment & Plan Assessment/Plan (1) NSTEMI, initial episode of care: PLAN: Plan 1. Acute [id number] remains on heparin drip, medications will be adjusted by cardiology #2 coronary artery disease-patient has a previous history of stent placement #3 essential hypertension-patient will continue on her home regimen, medication will be adjusted as needed #4 paroxysmal atrial fibrillation-patient is on rate limiting medication, she is on a heparin drip #5 hyperlipidemia-patient remains on a statin Total clinical time spent by myself addressing the patient's medical issues, reviewing all of her data, and collaborating with patient's care team: 35 minutes Charges/Coding Visit Charges Inpatient E&M: 93263 Subs Hosp L2
[2023-07-02] MEDS: Atorvastatin Calcium 80 MG Tablet PO (20:46)
[2023-07-02] MEDS: Calcium Carbonate 500 MG Tablet PO (21:56)
[2023-07-02 23:02] LABS: Partial Thromboplast Time 56.6 Seconds (24.1-36.2)
[2023-07-03 03:02] VITALS: BP 136/54; PULSE 70; RESP 17; TEMP 36.4; O2SAT 96
--- NOTE | 2023-07-03 04:52 | PCM.HOSP.N ---
Hospitalist Note Had frequent bouts of tachycardia while at rest with associated palpitations. Will increase carvedilol from 3.125 to 12.5 BID.
[2023-07-03 05:26] VITALS: BMI 37.8
[2023-07-03 07:13] VITALS: O2SAT 96
[2023-07-03] MEDS: DULoxetine Hcl 20 MG Capsule PO (07:53)
[2023-07-03] MEDS: Pantoprazole Sodium 40 MG Tablet PO (07:53)
[2023-07-03] MEDS: Potassium Chloride Oral Tablet 20 MEQ PO (07:53)
[2023-07-03] MEDS: Loratadine 10 MG Tablet PO (07:53)
[2023-07-03] MEDS: Aspirin E.C. 81 MG Tablet PO (07:53)
[2023-07-03 08:48] LABS: Partial Thromboplast Time 61.9 Seconds (24.1-36.2)
[2023-07-03 09:00] VITALS: BP 174/82; PULSE 64; RESP 18; TEMP 36.7; O2SAT 96
[2023-07-03] MEDS: Furosemide 40 MG Tablet PO (09:01)
[2023-07-03] MEDS: Carvedilol 12.5 MG Tablet PO ×2 (09:01→21:05)
[2023-07-03] MEDS: Isosorbide Mononitrate 60 MG Tablet PO (09:01)
--- NOTE | 2023-07-03 13:34 | PCM.PN.HOSP ---
Reason for Visit Reason for Visit: Diagnoses Non-ST elevation (NSTEMI) myocardial infarction (07/01/23) Paroxysmal atrial fibrillation (07/01/23) Subjective Subjective Patient was seen and examined today, she states she can tell when she is having palpitations. Monitor shows unifocal PVCs at times. Patient will be scheduled for a cardiac catheterization tomorrow. Objective Data Objective Data Vital Signs: Vital Signs Temp Pulse Resp BP Pulse Ox O2 Del Method FiO2 98.0 F 64 18 174/82 H 96 Room Air 21 07/03/23 09:00 07/03/23 09:00 07/03/23 09:00 07/03/23 09:00 07/03/23 09:00 07/03/23 09:00 07/02/23 00:30 Oxygen Delivery Method Room Air Weight: 87.8 kg Body Mass Index (BMI) 37.8 Intake & Output: Intake and Output for Last 24 Hours 07/01/23 07/02/23 07/03/23 23:59 23:59 23:59 Intake Total 205.64 / 205.64 485.87 / 485.87 Balance 205.64 / 205.64 485.87 / 485.87 Lab / Micro Data 07/02/23 08:16 07/02/23 08:16 Labs: Laboratory Results - last 24 hr 07/02/23 16:11: APTT 63.0 H 07/02/23 22:38: APTT 56.6 H 07/03/23 05:45: APTT 61.9 H Physical Exam Narrative alert, oriented x3, no apparent distress and healthy appearing General Appearance: cooperative, well kempt and well developed Orientation / Consciousness: awake, oriented to person, oriented to place and oriented to time HEENT normocephalic, head/scalp atraumatic and moist oral mucous membranes Eyes PERRL, EOMs intact bilaterally and conjunctivae normal Neck supple, no JVD, thyroid normal and no carotid bruits General: trachea midline Resp normal respiratory effort, no retractions, no use of accessory muscles and clear to auscultation bilaterally Auscultation: Negative for rales, rhonchi or wheezes Cardio regular rate, regular rhythm, S1 normal heart sound, S2 normal heart sound, no murmurs, no rub and no gallops GI normal to inspection, nondistended, normoactive bowel sounds, soft to palpation, non-tender and non-distended Extremity no clubbing, cyanosis or edema Skin no rashes or lesions noted General Skin Exam: no breakdown Neuro oriented x3, CN's II-XII intact bilaterally, no focal motor deficits and no sensory deficits noted Sensorium / Orientation: awake and alert Speech: speech normal Psych affect normal Assessment & Plan Assessment/Plan (1) NSTEMI, initial episode of care: PLAN: Plan 1. Acute [id number] remains on heparin drip, medications will be adjusted by cardiology, patient will undergo a cardiac catheterization on 07/04/2023 #2 coronary artery disease-patient has a previous history of stent placement #3 essential hypertension-patient will continue on her home regimen, medication will be adjusted as needed #4 paroxysmal atrial fibrillation-patient is on rate limiting medication, she is on a heparin drip #5 hyperlipidemia-patient remains on a statin #6 unifocal PVCs, continue to observe on telemetry Total clinical time spent by myself addressing the patient's medical issues, reviewing all of her data, and collaborating with patient's care team: 35 minutes Charges/Coding Visit Charges Inpatient E&M: 15653 Subs Hosp L2
[2023-07-03 15:00] VITALS: BP 103/55; PULSE 53; RESP 16; TEMP 36.6; O2SAT 96
[2023-07-03] MEDS: Acetaminophen 325 MG Tablet 650 MG PO (15:06)
[2023-07-03 21:01] VITALS: BP 147/72; PULSE 62; RESP 18; TEMP 36.7; O2SAT 97
[2023-07-03] MEDS: Atorvastatin Calcium 80 MG Tablet PO (21:05)
[2023-07-03] MEDS: Fluticasone 0.05% 1 SPRAY NASAL.SRY NASAL (21:05)
[2023-07-03] MEDS: Calcium Carbonate 500 MG Tablet PO (21:05)
[2023-07-04] VITALS (14 sets, daily range): BP systolic 124–161; BP diastolic 52–84; PULSE 47–63; RESP 14–20; TEMP 36.6–36.8; O2SAT 95–99; BMI 37.4
[2023-07-04] MEDS: HEPARIN/D5w 25,000 UNITS 25,000 UNITS/250 ML IV.SOLN. 8 UNITS CONT INF (03:09)
[2023-07-04] MEDS: Calcium Carbonate 500 MG Tablet PO ×2 (04:54→21:15)
--- NOTE | 2023-07-04 05:00 | EKG12_ITS ---
Test Reason : AM EKG Blood Pressure : / mmHG Vent. Rate : 056 BPM Atrial Rate : 056 BPM P-R Int : 192 ms QRS Dur : 080 ms QT Int : 418 ms P-R-T Axes : 062 009 099 degrees QTc Int : 403 ms Sinus bradycardia with Premature atrial complexes BORDERLINE When compared with ECG of 02-JUL-2023 00:26, MANUAL COMPARISON REQUIRED, DATA IS UNCONFIRMED Confirmed by Javier Wilhelm ([id number]), book editor ALFIE MONTIEL ([id number]) on 07/05/2023 8:02:12 AM Referred By: Confirmed By:Javier Wilhelm
[2023-07-04] MEDS: Isosorbide Mononitrate 60 MG Tablet PO (05:53)
[2023-07-04] MEDS: Aspirin E.C. 81 MG Tablet PO (05:53)
[2023-07-04 06:06] LABS: Partial Thromboplast Time 57.2 Seconds (24.1-36.2)
[2023-07-04 09:05] LABS: Absolute Lymphocyte Count 1.67 X10^3/uL (0.83-4.51); Absolute Neutrophil Count 1.5 X10^3/uL (2.0-7.7); Basophil# 0.01 X10^3/uL; Basophil% 0.3 % (0-1); Eosinophil# 0.12 X10^3/uL; Eosinophils% 3.2 % (0-5); Hematocrit 36.1 % (37-47); Lymphocyte # 1.67 X10^3/ul (0.83-4.51); Lymphocyte % 44.4 % (19-41); Mean Corp Hgb Conc 33.2 g/dL (32-36); Mean Corpuscular Volume 93.3 fL (81-99); Mean Platelet Vol. 9.4 fl (6.2-12.0); Monocyte# 0.42 X10^3/uL; Monocyte% 11.2 % (0-10); NRBC Flagged by Analyzer 0 % (0-5); Neutrophil # 1.53 X10^3/uL (2.7-7.7); Neutrophil % 40.6 % (47-70); Platelet Count 216 K/mm3 (150-450); RBC Distribution Width CV 12.7 % (11.6-14.6); RBC Distribution Width SD 43.3 fl (35.1-43.9); Red Blood Count 3.87 M/mm3 (4.2-5.4); White Blood Count 3.8 K/mm3 (4.4-11.0)
[2023-07-04 09:23] LABS: Anion Gap 4 (5-15); BUN 16 mg/dL (7-18); BUN/Creat Ratio 18.8 RATIO (10-20); Calcium,Total 10.5 mg/dL (8.5-10.1); Chloride 110 mmol/L (98-107); Creatinine, Serum 0.85 mg/dL (0.55-1.02); EST Glomerular Filtration Rate 70 mL/min (>60); Est Glom Filt Rate - Afr Amer 84 mL/min (>60); Estimated Creatinine Clearance 58.61 ml/min; Glucose 100 mg/dL (74-106); Potassium 3.5 mmol/L (3.5-5.1); Sodium Level 140 mmol/L (136-145)
--- NOTE | 2023-07-04 11:07 | PN.HOSP_ITS ---
Subjective Subjective Doing well, denies any chest pain but does periodically feel palpitations. Awaiting for heart cath today Objective Data Objective Data Vital Signs: Vital Signs Temp Pulse Resp BP Pulse Ox O2 Del Method FiO2 98.1 F 56 L 14 124/56 H 95 Room Air 21 07/04/23 09:09 07/04/23 09:09 07/04/23 09:09 07/04/23 09:09 07/04/23 09:09 07/04/23 09:09 07/02/23 00:30 Oxygen Delivery Method Room Air Weight: 191 lb 9.307 oz Body Mass Index (BMI) 37.4 Intake & Output: Intake and Output for Last 24 Hours 07/03/23 07/04/23 07/05/23 03:59 03:59 03:59 Intake Total 108.44 / 108.44 860.00 / 860.00 132.47 / 132.47 Balance 108.44 / 108.44 860.00 / 860.00 132.47 / 132.47 Lab / Micro Data 07/04/23 08:50 07/04/23 08:50 Labs: Laboratory Results - last 24 hr 07/04/23 05:05: APTT 57.2 H 07/04/23 08:50: WBC 3.8 L, RBC 3.87 L, Hgb 12.0, Hct 36.1 L, MCV 93.3, MCH 31.0, MCHC 33.2, RDW Std Deviation 43.3, RDW Coeff of Tan 12.7, Plt Count 216, MPV 9.4, Immature Gran % (Auto) 0.300, Neut % (Auto) 40.6 L, Lymph % (Auto) 44.4 H, [place] % (Auto) 11.2 H, Eos % (Auto) 3.2, Baso % (Auto) 0.3, Absolute Neuts (auto) 1.5 L, Absolute Lymphs (auto) 1.67, Nucleated RBC % 0, Sodium 140, Potassium 3.5, Chloride 110 H, Carbon Dioxide 26.0, Anion Gap 4 L, BUN 16, Creatinine 0.85, Estim Creat Clear Calc 58.61, Est GFR (MDRD) Af Amer 84, Est GFR (MDRD) Non-Af 70, BUN/Creatinine Ratio 18.8, Glucose 100, Calcium 10.5 H Physical Exam Narrative General: Alert, Oriented x3, Cooperative, No apparent distress HEENT: Atraumatic, PERRLA, EOMI, Normocephalic Oral: Moist Mucosa Neck: Supple, No JVD Lungs: Diminished, Normal air movement, No rhonchi, No wheeze, No rales Cardiovascular: Bradycardic, Regular Rhythm, Normal S1, Normal S2, No murmurs Abdomen: Soft, Non Tender, Non-Distended, No Hepato-splenomegaly Extremities: No edema, Capillary Refill Less than 3 Seconds Skin: No rashes, No breakdown Musculoskeletal: No Tenderness to Palpation of Joints or Extremities Neurological: No focal neurological deficits, Motor Exam 5/5 strength throughout, Sensory exam intact to light touch and pain Psych/Mental Status: Normal Affect, Appropriate Assessment & Plan Assessment/Plan (1) NSTEMI, initial episode of care: PLAN: Plan 1. Acute non-STEMI/CAD status post stent/essential HTN/paroxysmal A-fib/HLD ? Plan for heart cath today ? Continue with her home blood pressure medications ? Continue with statin ? She is on Eliquis at home, this has been held pending heart cath can likely resume on discharge ? Echo with an EF of 65% with no evidence of diastolic dysfunction on admission ? Continue with heparin drip ? Appreciate cardiology's assistance 2. GERD ? Stable ? Continue with PPI 3. Anxiety/depression ? Stable ? Continue with Cymbalta DVT: Heparin drip Charges/Coding Visit Charges Inpatient E&M: 71181 Subs Hosp L2
--- NOTE | 2023-07-04 12:16 | CL.D_ITS ---
Patient Name: SLY SNELL Study Date: 07/04/2023 Performing: Darcy Cooley MD Ht: 60 inches 152.4 cm : 1950 Wt: 191.8 lbs 86.9 kg Age: 72 Gender: female BSA: 1.83 PROCEDURE(S) PERFORMED [id number])LHC/COR CLINICAL PROFILE AND INDICATIONS Heart Failure: None Stress/Imaging Stress/Image Study Performed: No CAD Presentations: Non-STEMI. Symptom onset Date/Time: Time Not Available CONCLUSIONS CAD as described RECOMMENDATIONS CT surgery consult for possible CABG +/- MAZE procedure DESCRIPTION OF PROCEDURE The patient arrived to the procedure lab. The risks and benefits of the procedure as well as a full description of our services here and current unavailability of surgical backup were fully explained to the patient and/or their significant other prior to the catheterization. The Timeout was completed, verifying the correct patient and procedure. The patient's procedural site was prepped and draped in the usual fashion. Local anesthetic was given subcutaneously to right radial region with Lidocaine 2%. Using a modified Seldinger technique, arterial access was obtained via the right radial artery, a 6Fr sheath was inserted. Left Coronary Artery selective angiography was performed in multiple views using a 5 Fr. JL3.5 catheter. Right Coronary Artery selective angiography was then performed in multiple views using a 5 Fr. JR 4 catheter.The arterial sheath was pulled and a TR Band was applied for hemostasis 18 ml of air CORONARY ANGIOGRAPHY DOMINANCE: Co- Dominant LEFT MAIN: 40% ostial stenosis. There is severe disease involving the ostia of the LAD, circumflex and ramus that appears to extend into the distal left main causing about 60% distal left main stenosis. LEFT ANTERIOR DESCENDING ARTERY: OSTIAL LAD: 90 % Stenosis MID LAD: 20 % Stenosis CIRCUMFLEX ARTERY: OSTIAL CIRC: 99 % Stenosis RAMUS: 90% ostial stenosis RIGHT CORONARY ARTERY: Previously placed stent is patent OSTIAL RCA: 30 % Stenosis COMPLICATIONS No Complications PROCEDURE MEDICATIONS Fentanyl 50 mcg IV Versed 1 mg IV Versed 1 mg IV Oxygen: 2 L/min via nasal cannula Heparin given IA 07/04/2023 10:55:10 Verapamil 2.5mg, Ntg 100mcgs, 3000 units of Heparin given IA 07/04/2023 10:55:10 SUMMARY OF HEMODYNAMIC DATA Time AIR REST ECG 10:41:53 AO 104/47 (72) SA 10:59:19 AO 109/53 (74) 11:02:12 LV 134/2, 15 11:05:10 LV 139/-15, 14 11:05:18 LV 135/56, 61 11:05:38 AO 121/55 (84) 11:07:07 Signed By Darcy Cooley MD On 07/04/2023 12:16:07 Darcy Cooley MD
[2023-07-04] MEDS: Fluticasone 0.05% 1 SPRAY NASAL.SRY NASAL ×2 (12:17→21:15)
[2023-07-04] MEDS: DULoxetine Hcl 20 MG Capsule PO (12:18)
[2023-07-04] MEDS: Loratadine 10 MG Tablet PO (12:19)
[2023-07-04] MEDS: Furosemide 40 MG Tablet PO (12:19)
[2023-07-04] MEDS: Potassium Chloride Oral Tablet 20 MEQ PO (12:19)
[2023-07-04] MEDS: Pantoprazole Sodium 40 MG Tablet PO (12:19)
[2023-07-04] MEDS: 0.9% Normal Saline (1000mL) 1,000 ML 70 ML IV (12:20)
[2023-07-04] MEDS: Acetaminophen 325 MG Tablet 650 MG PO (17:45)
[2023-07-04] MEDS: Carvedilol 12.5 MG Tablet PO (21:15)
[2023-07-04] MEDS: Atorvastatin Calcium 80 MG Tablet PO (21:15)
--- NOTE | 2023-07-04 22:40 | CPS ---
Pt requested to have break off of the CPAP tonight.
[2023-07-05 00:28] LABS: Partial Thromboplast Time 40.9 Seconds (24.1-36.2)
[2023-07-05] MEDS: Heparin Injection (Vial) 5,000 UNIT/ML VIAL IV (01:16)
[2023-07-05] MEDS: Calcium Carbonate 500 MG Tablet PO (01:23)
[2023-07-05 01:25] VITALS: BP 151/74; PULSE 57; RESP 18; TEMP 36.6; O2SAT 94
[2023-07-05 05:25] VITALS: BP 143/60; PULSE 66; RESP 18; TEMP 36.5; O2SAT 95
[2023-07-05 06:00] VITALS: BMI 37.5
[2023-07-05 07:42] LABS: Absolute Lymphocyte Count 1.74 X10^3/uL (0.83-4.51); Absolute Neutrophil Count 1.6 X10^3/uL (2.0-7.7); Basophil# 0.02 X10^3/uL; Basophil% 0.5 % (0-1); Eosinophil# 0.11 X10^3/uL; Eosinophils% 2.9 % (0-5); Hematocrit 35.7 % (37-47); Hemoglobin 11.8 g/dL (12.0-15.0); Lymphocyte # 1.74 X10^3/ul (0.83-4.51); Lymphocyte % 45.9 % (19-41); Mean Corp Hgb Conc 33.1 g/dL (32-36); Mean Corpuscular Hgb 31.1 pg (27.0-32.0); Mean Corpuscular Volume 93.9 fL (81-99); Mean Platelet Vol. 10.2 fl (6.2-12.0); Monocyte# 0.34 X10^3/uL; NRBC Flagged by Analyzer 0 % (0-5); Neutrophil # 1.56 X10^3/uL (2.7-7.7); Neutrophil % 41.2 % (47-70); Platelet Count 228 K/mm3 (150-450); RBC Distribution Width CV 12.6 % (11.6-14.6); RBC Distribution Width SD 43.3 fl (35.1-43.9); White Blood Count 3.8 K/mm3 (4.4-11.0)
[2023-07-05 07:44] LABS: Partial Thromboplast Time 105.2 Seconds (24.1-36.2)
[2023-07-05 07:47] LABS: Anion Gap 6 (5-15); BUN 16 mg/dL (7-18); BUN/Creat Ratio 20.6 RATIO (10-20); Chloride 107 mmol/L (98-107); Creatinine, Serum 0.78 mg/dL (0.55-1.02); EST Glomerular Filtration Rate 78 mL/min (>60); Est Glom Filt Rate - Afr Amer 94 mL/min (>60); Glucose 112 mg/dL (74-106); Potassium 3.4 mmol/L (3.5-5.1); Sodium Level 140 mmol/L (136-145)
[2023-07-05 08:22] VITALS: BP 171/79; PULSE 60; RESP 14; TEMP 36.6; O2SAT 96
[2023-07-05] MEDS: Potassium Chloride Oral Tablet 20 MEQ 40 MEQ PO (08:36)
[2023-07-05] MEDS: Aspirin E.C. 81 MG Tablet PO (08:37)
[2023-07-05] MEDS: Fluticasone 0.05% 1 SPRAY NASAL.SRY NASAL ×2 (08:37→21:45)
[2023-07-05] MEDS: Carvedilol 12.5 MG Tablet PO (08:37)
[2023-07-05] MEDS: Potassium Chloride Oral Tablet 20 MEQ PO (08:37)
[2023-07-05] MEDS: Isosorbide Mononitrate 60 MG Tablet PO (08:37)
[2023-07-05] MEDS: DULoxetine Hcl 20 MG Capsule PO (08:37)
[2023-07-05] MEDS: Pantoprazole Sodium 40 MG Tablet PO (08:38)
[2023-07-05] MEDS: Furosemide 40 MG Tablet PO (08:38)
[2023-07-05] MEDS: Loratadine 10 MG Tablet PO (08:38)
[2023-07-05 09:16] LABS: Differential Indicated SCAN CRITERIA MET
[2023-07-05 09:17] LABS: Differential Comment SCANNED
--- NOTE | 2023-07-05 09:41 | PN.HOSP_ITS ---
Subjective Subjective Doing well, no issues overnight. Pending transfer to [facility] Objective Data Objective Data Vital Signs: Vital Signs Temp Pulse Resp BP Pulse Ox O2 Del Method FiO2 97.8 F 60 14 171/79 H 96 Room Air 07/05/23 08:22 07/05/23 08:22 07/05/23 08:22 07/05/23 08:22 07/05/23 08:22 07/05/23 08:22 07/02/23 00:30 Oxygen Delivery Method Room Air Weight: 192 lb 3.889 oz Body Mass Index (BMI) 37.5 Intake & Output: Intake and Output for Last 24 Hours 07/04/23 07/05/23 07/06/23 03:59 03:59 03:59 Intake Total 860.00 / 860.00 1690.47 / 1690.47 66.5 / 66.5 Balance 860.00 / 860.00 1690.47 / 1690.47 66.5 / 66.5 Lab / Micro Data 07/05/23 05:30 07/05/23 05:30 Labs: Laboratory Results - last 24 hr 07/05/23 00:06: APTT 40.9 H 07/05/23 05:30: WBC 3.8 L, RBC 3.80 L, Hgb 11.8 L, Hct 35.7 L, MCV 93.9, MCH 31.1, MCHC 33.1, RDW Std Deviation 43.3, RDW Coeff of Tan 12.6, Plt Count 228, MPV 10.2, Immature Gran % (Auto) 0.500, Neut % (Auto) 41.2 L, Lymph % (Auto) 45.9 H, [place] % (Auto) 9.0, Eos % (Auto) 2.9, Baso % (Auto) 0.5, Absolute Neuts (auto) 1.6 L, Absolute Lymphs (auto) 1.74, Nucleated RBC % 0, Differential Comment SCANNED, Sodium 140, Potassium 3.4 L, Chloride 107, Carbon Dioxide 27.0, Anion Gap 6, BUN 16, Creatinine 0.78, Estim Creat Clear Calc 62.40, Est GFR (MDRD) Af Amer 94, Est GFR (MDRD) Non-Af 78, BUN/Creatinine Ratio 20.6 H, G lucose 112 H, Calcium 10.0 0521/24 06:45: APTT 105.2 H* Physical Exam Narrative General: Alert, Oriented x3, Cooperative, No apparent distress HEENT: Atraumatic, PERRLA, EOMI, Normocephalic Oral: Moist Mucosa Neck: Supple, No JVD Lungs: Diminished, Normal air movement, No rhonchi, No wheeze, No rales Cardiovascular: Bradycardic, Regular Rhythm, Normal S1, Normal S2, No murmurs Abdomen: Soft, Non Tender, Non-Distended, No Hepato-splenomegaly Extremities: No edema, Capillary Refill Less than 3 Seconds Skin: No rashes, No breakdown Musculoskeletal: No Tenderness to Palpation of Joints or Extremities Neurological: No focal neurological deficits, Motor Exam 5/5 strength throughout, Sensory exam intact to light touch and pain Psych/Mental Status: Normal Affect, Appropriate Assessment & Plan Assessment/Plan (1) NSTEMI, initial episode of care: PLAN: Plan 1. Acute non-STEMI/CAD status post stent/essential HTN/paroxysmal A-fib/HLD ? Heart cath with severe disease needing transfer to a tertiary center for cardiothoracic surgery evaluation ? Continue with her home blood pressure medications ? Continue with statin ? She is on Eliquis at home, continue holding Eliquis and continue with the heparin drip ? Echo with an EF of 65% with no evidence of diastolic dysfunction on admission ? Appreciate cardiology's assistance 2. GERD ? Stable ? Continue with PPI 3. Anxiety/depression ? Stable ? Continue with Cymbalta DVT: Heparin drip Charges/Coding Visit Charges Inpatient E&M: 43747 Subs Hosp L2
--- NOTE | 2023-07-05 15:35 | CASEMGMT ---
Consult was placed for advance directives. SW met with patient. Introduced self and role at [facility]. Patient confirmed she would like to do the documents. SW assisted patient in completing both Healthcare Living Will (HCLW) and Healthcare Power of [employer] (HCPOA). Copies were made and given to patient along with originals. A copy of each was also placed in patient's chart. Kassidy COATS
[2023-07-05 16:16] LABS: Partial Thromboplast Time 45.9 Seconds (24.1-36.2)
[2023-07-05] MEDS: HEPARIN/D5w 25,000 UNITS 25,000 UNITS/250 ML IV.SOLN. 8 UNITS CONT INF (16:50)
[2023-07-05 16:53] VITALS: BP 143/61; PULSE 54; RESP 14; TEMP 36.6; O2SAT 95
[2023-07-05 21:29] VITALS: BP 156/74; PULSE 54; RESP 18; TEMP 37.1; O2SAT 96
[2023-07-05] MEDS: Atorvastatin Calcium 80 MG Tablet PO (21:45)
[2023-07-05 23:55] LABS: Partial Thromboplast Time 51.5 Seconds (24.1-36.2)
[2023-07-06] MEDS: Acetaminophen 325 MG Tablet 650 MG PO (00:31)
[2023-07-06 04:00] VITALS: BP 148/72; PULSE 61; RESP 18; TEMP 36.9; O2SAT 94
--- NOTE | 2023-07-06 05:20 | CPS ---
Patient refused SL machine due to feeling anxious
[2023-07-06 06:00] VITALS: BMI 37.6
[2023-07-06 07:24] LABS: Partial Thromboplast Time 79.4 Seconds (24.1-36.2)
[2023-07-06 09:10] VITALS: BP 145/67; PULSE 63; RESP 18; TEMP 36.6; O2SAT 97
[2023-07-06] MEDS: Loratadine 10 MG Tablet PO (09:11)
[2023-07-06] MEDS: Carvedilol 12.5 MG Tablet PO ×2 (09:11→21:51)
[2023-07-06] MEDS: Potassium Chloride Oral Tablet 20 MEQ PO (09:11)
[2023-07-06] MEDS: DULoxetine Hcl 20 MG Capsule PO (09:11)
[2023-07-06] MEDS: Aspirin E.C. 81 MG Tablet PO (09:11)
[2023-07-06] MEDS: Pantoprazole Sodium 40 MG Tablet PO (09:11)
[2023-07-06] MEDS: Isosorbide Mononitrate 60 MG Tablet PO (09:12)
[2023-07-06] MEDS: Furosemide 40 MG Tablet PO (09:12)
--- NOTE | 2023-07-06 11:20 | NURSING ---
I spoke to Kelli Larkin at [facility] transfer line, she stated that they are currently full and have people waiting on their beds in their ED. They're hopeful to have a bed available this afternoon.
[2023-07-06 14:28] LABS: Partial Thromboplast Time 62.8 Seconds (24.1-36.2)
--- NOTE | 2023-07-06 14:37 | NURSING ---
Gave report to Jaquelin MILAN
[2023-07-06 15:25] VITALS: BP 120/47; PULSE 55; RESP 18; TEMP 36.9; O2SAT 97
--- NOTE | 2023-07-06 17:04 | PCM.PN.HOSP ---
Subjective Subjective Doing well, no issues overnight Objective Data Objective Data Vital Signs: Vital Signs Temp Pulse Resp BP Pulse Ox O2 Del Method FiO2 98.4 F 55 L 18 120/47 L 97 Room Air 07/06/23 15:25 07/06/23 15:25 07/06/23 15:25 07/06/23 15:25 07/06/23 15:25 07/06/23 15:25 07/02/23 00:30 Oxygen Delivery Method Room Air Weight: 192 lb 14.472 oz Body Mass Index (BMI) 37.6 Intake & Output: Intake and Output for Last 24 Hours 07/05/23 07/06/23 07/07/23 03:59 03:59 03:59 Intake Total 1690.47 / 1690.47 1229.77 / 1229.77 65.4 / 65.4 Balance 1690.47 / 1690.47 1229.77 / 1229.77 65.4 / 65.4 Lab / Micro Data 07/05/23 05:30 07/05/23 05:30 Labs: Laboratory Results - last 24 hr 07/05/23 22:55: APTT 51.5 H 07/06/23 06:35: APTT 79.4 H 07/06/23 13:42: APTT 62.8 H Physical Exam Narrative General: Alert, Oriented x3, Cooperative, No apparent distress HEENT: Atraumatic, PERRLA, EOMI, Normocephalic Oral: Moist Mucosa Neck: Supple, No JVD Lungs: Diminished, Normal air movement, No rhonchi, No wheeze, No rales Cardiovascular: Bradycardic, Regular Rhythm, Normal S1, Normal S2, No murmurs Abdomen: Soft, Non Tender, Non-Distended, No Hepato-splenomegaly Extremities: No edema, Capillary Refill Less than 3 Seconds Skin: No rashes, No breakdown Musculoskeletal: No Tenderness to Palpation of Joints or Extremities Neurological: No focal neurological deficits, Motor Exam 5/5 strength throughout, Sensory exam intact to light touch and pain Psych/Mental Status: Normal Affect, Appropriate Assessment & Plan Assessment/Plan (1) NSTEMI, initial episode of care: PLAN: Plan 1. Acute non-STEMI/CAD status post stent/essential HTN/paroxysmal A-fib/HLD ? Heart cath with severe disease needing transfer to a tertiary center for cardiothoracic surgery evaluation, currently awaiting bed availability ? Continue with her home blood pressure medications ? Continue with statin ? She is on Eliquis at home, continue holding Eliquis and continue with the heparin drip ? Echo with an EF of 65% with no evidence of diastolic dysfunction on admission ? Appreciate cardiology's assistance 2. GERD ? Stable ? Continue with PPI 3. Anxiety/depression ? Stable ? Continue with Cymbalta DVT: Heparin drip Charges/Coding Visit Charges Inpatient E&M: 27108 Subs Hosp L2
[2023-07-06 20:33] LABS: Partial Thromboplast Time 65.3 Seconds (24.1-36.2)
[2023-07-06 21:47] VITALS: BP 131/50; PULSE 55; RESP 18; TEMP 36.7; O2SAT 98
[2023-07-06] MEDS: Fluticasone 0.05% 1 SPRAY NASAL.SRY NASAL (21:50)
[2023-07-06] MEDS: Atorvastatin Calcium 80 MG Tablet PO (21:51)
[2023-07-06] MEDS: HEPARIN/D5w 25,000 UNITS 25,000 UNITS/250 ML IV.SOLN. 8 UNITS CONT INF (23:16)
--- NOTE | 2023-07-06 23:28 | CPS ---
Patient does nit wish to wear SL CPAP machine she is feeling anxious. 1.5 L oxygen NC placed on patient
--- NOTE | 2023-07-08 16:39 | DS.PCM_ITS ---
Providers Date of Admission: 07/01/23 Date of Discharge: 07/07/23 Primary Care Physician: CHRISTIAN Mcqueen Consultations 07/01/23 19:31 Consult: Cardiology Routine Consulting Provider: Rosalina Cooley Reason for Consult: Chest Pain EMERGENT Consult: No MD Notified: Yes Date Notified: 07/01/23 Time Notified: 18:21 Method of Notification: ED Physician Initiated Reason For Visit: NSTEMI Diagnosis Discharge Diagnosis (1) NSTEMI, initial episode of care: Status: Acute Code(s): I21.4 - Non-ST elevation (NSTEMI) myocardial infarction Plan 1. Acute non-STEMI/CAD status post stent/essential HTN/paroxysmal A-fib/HLD ? Heart cath with severe disease needing transfer to a tertiary center for cardiothoracic surgery evaluation, currently awaiting bed availability ? Continue with her home blood pressure medications ? Continue with statin ? She is on Eliquis at home, continue holding Eliquis and continue with the heparin drip ? Echo with an EF of 65% with no evidence of diastolic dysfunction on admission ? Appreciate cardiology's assistance 2. GERD ? Stable ? Continue with PPI 3. Anxiety/depression ? Stable ? Continue with Cymbalta DVT: Heparin drip Medications at Discharge Home Medications atorvastatin 80 mg tablet 80 mg PO QHS cholesterol #90 tabs 01/11/18 isosorbide mononitrate 60 mg tablet,extended release 24 hr 60 mg PO DAILY heart 02/23/18 nitroglycerin 0.4 mg sublingual tablet 0.4 mg sublingual Q5-15M PRN chest pain #25 tabs 02/23/18 furosemide 40 mg tablet 40 mg PO DAILY diuretic #3 tabs 02/02/22 duloxetine 20 mg capsule,delayed release 20 mg PO DAILY mood 04/27/22 cholecalciferol (vitamin D3) 1,250 mcg (50,000 unit) capsule 1,250 mcg PO QWEEK suppliment 12/21/22 potassium chloride 10 mEq tablet,extended release(part/cryst) 20 meq (2 x 10 mEq) PO DAILY 10 meq pills for easier swallowing #180 tabs 12/22/22 apixaban 5 mg tablet (Eliquis) 5 mg PO BID blood thinner #60 tabs 01/25/23 albuterol sulfate 1.25 mg/3 mL solution for nebulization 1.25 mg inhalation Q4H PRN sob/wheezing 06/16/23 carvedilol 3.125 mg tablet 3.125 mg PO BID #60 tabs 06/16/23 cetirizine 10 mg tablet 10 mg PO QDAY allergies 06/16/23 fluticasone propionate 50 mcg/actuation nasal spray,suspension 1 spray intranasal BID sinus 06/16/23 pantoprazole 40 mg tablet,delayed release 40 mg PO QDAY reflux 06/16/23 Hospital Course Operations None Procedures Cardiac catheterization Summary of Care Provided Minutes Spent on Discharge: 0 Hospital Course: Per HPI: The patient is a 72 y/o F w/ PMHx: Anxiety and Depression, Asthma, Tobacco use, CKD stage II per GFR trending, Obesity, CAD s/p PCI, Carotid disease s/p CEA, PAF, RLS, ERICKA, Hx Intermittent Type II HB, HTN, HLD, Chronic back pain w/ Hx spinal cord stimulator placement who presents to the [facility] ED on 07/01/23 with onset of chest discomfort specifically in the midsternal and mildly in the left chest with no radiation described as burning, pressure-like and tightness as well as occasional stabbing in sensation ongoing intermittently for the last 3 days although seems to be constant now over the last at least 24 hours with nausea, 1 episode of emesis, dyspnea worse when she is exerting herself with no specific diaphoresis prompting eventual ED evaluation for chest pain evaluation. She does report for the past 3 days she has had very poor appetite. From review of recent cardiac records patient has had a recent workup including: --06/09/2023 stress testing with an adequate exercise tolerance test with no ischemic changes although frequent PVCs during exercise and uniform tracer uptake and myocardial perfusion within normal limits, LVEF 69% --06/09/2023 echocardiogram with LVEF 60%, mild MVI. Currently she notes that her pain is down to 2-3 out of 10 in severity but previously at its worst her chest discomfort is been 8 out of 10 in severity. Workup in the ED included T97, heart rate 92, BP 177/90, respiratory rate 14, 97% on room air, most recent repeat vital signs heart rate 68, BP 135/58, respiratory rate 20, CBC with WBC 4.8, human 13.1, platelet 234 without marked shift, BMP with chloride 110, BUN/creatinine 13/0.99, GFR 58, glucose 111, troponin 1435, BNP pending upon evaluation, chest x-ray with no acute cardiopulmonary findings, EKG with SR with subtle lateral depressions, the ED patient initiated on heparin drip with bolus and administered full-strength aspirin therapy. Most recent cardiology evaluation date noted 06/16/2023 and follow-up blood pressure check 06/23/2023. ED discussed case with cardiology Dr. Cooley who recommended heparin drip and would plan cardiac catheterization likely Tuesday. Hospital Course: 1. Acute non-STEMI/CAD status post stent/essential HTN/paroxysmal A-fib/HLD ? Heart cath with severe disease needing transfer to a tertiary center for cardiothoracic surgery evaluation, currently awaiting bed availability ? Continue with her home blood pressure medications ? Continue with statin ? She is on Eliquis at home, continue holding Eliquis and continue with the heparin drip ? Echo with an EF of 65% with no evidence of diastolic dysfunction on admission ? 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 GERD ? Stable ? Continue with PPI 3. Anxiety/depression ? Stable ? Continue with Cymbalta DVT: Heparin drip Weight / BMI Weight Weight: 192 lb 14.472 oz Body Mass Index (BMI) 37.6 ABG / Lab / Microbiology Data 07/05/23 05:30 07/05/23 05:30 Meaningful Use Info Meaningful Use Meaningful Use Diagnoses (Choose all that apply): None applicable Ischemic Stroke Statin Dosing Therapy Reference: STATIN DOSE THERAPY REFERENCE: * Patients > 75 years receive moderate or high dose statin therapy. * Patients 75 years or YOUNGER should receive HIGH intensity statin dose unless contraindicated. You will be required to document reason for non-treatment if statin daily dose does not meet guidelines. HIGH DOSE STATIN THERAPY DAILY Atorvastatin > than or = to 40 mg Rosuvastatin > than or = to 20 mg Amlodipine + Atorvastatin > than or = to 2.5/40 mg Ezetimibe + Simvastatin 10/80 mg Simvastatin 80mg Discharge Plan Admission Admit Date/Time: 07/01/23 18:20 Attending Provider: Dagoberto Nichols Primary Care Provider: Leonor Orellana NP Consulting Providers: Rosalina Cooley; Jenn Rutherford; Hussein Milian Discharge Orders/Prescriptions Prescriptions: No Action atorvastatin 80 mg tablet 80 mg PO QHS Qty: 90 3RF isosorbide mononitrate 60 mg tablet extended release 24 hr 60 mg PO DAILY nitroglycerin 0.4 mg tablet, sublingual 0.4 mg SUBLINGUAL Q5-15M PRN (Reason: chest pain) Qty: 25 2RF furosemide 40 mg tablet 40 mg PO DAILY Qty: 3 0RF duloxetine 20 mg capsule,delayed release(DR/EC) 20 mg PO DAILY Patient Comments: take 1 capsule by mouth once daily cholecalciferol (vitamin D3) 1,250 mcg (50,000 unit) capsule 1,250 mcg PO QWEEK pantoprazole 40 mg tablet,delayed release (DR/EC) 40 mg PO QDAY cetirizine 10 mg tablet 10 mg PO QDAY albuterol sulfate 1.25 mg/3 mL solution for nebulization 1.25 mg INHALATION Q4H PRN (Reason: sob/wheezing) fluticasone propionate 50 mcg/actuation spray,suspension 1 spray intranasal BID potassium chloride 10 mEq tablet,ER particles/crystals 20 meq PO DAILY Qty: 180 3RF Eliquis 5 mg tablet 5 mg PO BID Qty: 60 11RF carvedilol 3.125 mg tablet 3.125 mg PO BID Qty: 60 11RF Rx Instructions: must administer with a meal/food Referrals / Follow Up: Leonor Orellana NP, OPEN HEARTH STOCKYARD SUPERVISOR-C [Primary Care Provider] - Disposition Disposition (needs filled in before D/C Order can be placed): Acute Care Hospital
== END 2023-07-07 00:30 | disposition short-term general hospital (02) | DRG 282 ==
LOC: ED 18:25 → PCU 18:33
PROVIDERS: Internal Medicine; Internal Medicine Cardiovascular Disease; Admitting Provider Family Medicine; Emergency Provider Student in an Organized Health Care Education/Training Program; PCP Nurse Practitioner Family; Visit Provider Family Medicine
DX: I21.4 Non-ST elevation (NSTEMI) myocardial infarction (principal); E66.9 Obesity, unspecified; J44.9 Chronic obstructive pulmonary disease, unspecified; I48.0 Paroxysmal atrial fibrillation; I12.9 Hypertensive chronic kidney disease with stage 1 through stage 4 chronic kidney disease, or unspecified chronic kidney disease; F32.A Depression, unspecified; E78.5 Hyperlipidemia, unspecified; F17.210 Nicotine dependence, cigarettes, uncomplicated; I25.10 Atherosclerotic heart disease of native coronary artery without angina pectoris; N18.2 Chronic kidney disease, stage 2 (mild); K21.9 Gastro-esophageal reflux disease without esophagitis; F41.9 Anxiety disorder, unspecified; J30.9 Allergic rhinitis, unspecified; G47.33 Obstructive sleep apnea (adult) (pediatric); Z68.37 Body mass index [BMI] 37.0-37.9, adult; Z95.5 Presence of coronary angioplasty implant and graft; Z79.82 Long term (current) use of aspirin; Z79.01 Long term (current) use of anticoagulants; Z79.899 Other long term (current) drug therapy; Z82.49 Family history of ischemic heart disease and other diseases of the circulatory system
CPT/HCPCS: 36415; 71045; 80048; 80053; 80061; 83735; 83880; 84484; 85025; 85610; 85730; 93005; 93306; 93454; 94640; 94660; 94668; 99152; 99153; 99285; 99406; J7030; J7040; Q9957; Q9967; A4216; C1769; C1894

== ENCOUNTER 2023-07-24 08:43 | Observation (INO) | payer MEDICARE, OTHER, SELFPAY ==
[2017-12-28 12:03] VITALS: BMI 36.5
[2023-07-24] VITALS (30 sets, daily range): BP systolic 116–150; BP diastolic 47–84; PULSE 60–75; RESP 15–32; TEMP 36.1–36.7; O2SAT 93–100; BMI 38.0; BMI 37.0
--- NOTE | 2023-07-24 09:00 | EX.ED.DYSGE1 ---
HPI History of Present Illness Chief Complaint: Chest Pain Informant: patient Onset/Context/Timing Onset: Weeks Context: Gradual Onset Timing: Continuous Quality: Struggling, tightness, cannot get air Location: Chest Worsened by: Ambulation and activity Relieved by: Oxygen Narrative Narrative: Patient presents with shortness of breath that has been getting worse over the past couple weeks. Patient had recent coronary artery bypass graft surgery at [facility] 2 weeks ago. Patient states she has been having some difficulty breathing since that time. Patient states she feels like she cannot get enough air. Patient states it is gradually gotten worse. Patient states it is worse with any activity. Patient states it is better with oxygen. Patient denies any fevers or chills. Patient does admit to a mild cough. [facility] Medical History (Updated 07/24/23 @ 14:[address] 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 Paroxysmal atrial fibrillation Osteoporosis Nicotine dependence, cigarettes, in remission Fibroadenoma RLS (restless legs syndrome) Carotid artery disease ERICKA (obstructive sleep apnea) Nicotine dependence in remission Atherosclerotic heart disease [place] coronary artery w/angina pectoris intermttent type 2 heart block GERD (gastroesophageal reflux disease) Obesity Hypertension Hyperlipidemia Home Medications ?Medication ?Instructions ?Recorded ?Last Taken ?Type atorvastatin 80 mg tablet 80 mg PO QHS cholesterol #90 tabs 01/11/18 Unknown Rx isosorbide mononitrate 60 mg 60 mg PO DAILY heart 02/23/18 Unknown History tablet,extended release 24 hr nitroglycerin 0.4 mg sublingual 0.4 mg sublingual Q5-15M PRN chest 02/23/18 Unknown Rx tablet pain #25 tabs furosemide 40 mg tablet 40 mg PO DAILY diuretic #3 tabs 02/02/22 Unknown Rx duloxetine 20 mg capsule,delayed 20 mg PO DAILY mood 04/27/22 Unknown History release cholecalciferol (vitamin D3) 1,250 1,250 mcg PO QWEEK suppliment 12/21/22 Unknown History mcg (50,000 unit) capsule potassium chloride 10 mEq 20 meq (2 x 10 mEq) PO DAILY 10 12/22/22 Unknown Rx tablet,extended release(part/cryst) meq pills for easier swallowing #180 tabs apixaban 5 mg tablet (Eliquis) 5 mg PO BID blood thinner #60 tabs 01/25/23 Unknown Rx albuterol sulfate 1.25 mg/3 mL 1.25 mg inhalation Q4H PRN 06/16/23 Unknown History solution for nebulization sob/wheezing carvedilol 3.125 mg tablet 3.125 mg PO BID #60 tabs 06/16/23 Unknown Rx cetirizine 10 mg tablet 10 mg PO QDAY allergies 06/16/23 Unknown History fluticasone propionate 50 1 spray intranasal BID sinus 06/16/23 Unknown History mcg/actuation nasal spray,suspension pantoprazole 40 mg tablet,delayed 40 mg PO QDAY reflux 06/16/23 Unknown History release albuterol sulfate 90 mcg/actuation 2 puff inhalation Q6H PRN PRN 07/24/23 Unknown History aerosol inhaler wheezing amiodarone 200 mg tablet 200 mg PO Q12H 07/24/23 Unknown History amlodipine 10 mg tablet 10 mg PO DAILY 07/24/23 Unknown History clopidogrel 75 mg tablet 75 mg PO DAILY 07/24/23 Unknown History folic acid 1 mg tablet 1 mg PO DAILY 07/24/23 Unknown History metoprolol tartrate 50 mg tablet 50 mg PO TID 07/24/23 Unknown History prochlorperazine maleate 5 mg 5 mg PO TID 07/24/23 Unknown History tablet tramadol 50 mg tablet 50 mg PO Q8H PRN pain 07/24/23 Unknown History Allergy/AdvReac Type Severity Reaction Status Date / Time doxycycline Allergy Unknown Verified 07/24/23 08:43 metoprolol AdvReac intermittent Verified 07/24/23 08:43 heart block oxycodone AdvReac vomiting Verified 07/24/23 08:43 Family History Brother CAD (coronary artery disease) CABG Mother CAD (coronary artery disease) Diabetes Sister , Age 13 Myocarditis Cancer Sister Cancer Other Dyspnea Fatigue Surgical History (Updated 07/24/23 @ 09:[address] Prince Basilio, DO) S/P CABG x 3 S/P insertion of spinal cord stimulator History of left heart catheterization (09/05/19) History of coronary artery stent placement (07/12/18) H/O breast biopsy History of hysterectomy Hx of cholecystectomy H/O carotid endarterectomy (~09/05/12) Social History household members: spouse Smoking Status: Current every day smoker tobacco type: cigarettes Tobacco: How many years used: 40 how long ago did patient quit smoking: Had previously quit in 2018 but started again, currently smoking 1 pk/wk. second hand exposure: Yes alcohol intake: never substance use type: does not use caffeine: Yes Type: carbonated beverages Number of servings: 2 ROS ROS ED Constitutional Constitutional ED: Denies chills or fever(s) Eyes Eyes: Denies blurry vision or change in vision ENT ENT ED: Denies rhinorrhea or sore throat Cardiovascular Cardiovascular: Reports chest pain; Denies palpitations Respiratory/Chest Respiratory/Chest: Reports cough and dyspnea Gastrointestinal Gastrointestinal: Reports nausea and vomiting Genitourinary Genitourinary ED: Denies dysuria or hematuria Musculoskeletal Musculoskeletal: Reports back pain; Denies neck pain Integumentary Denies abscess or rash Neurologic Neurologic: Reports weakness; Denies headache(s) Allergic/Immunologic Allergic/Immunologic ED: Denies mouth swelling or urticaria EXAM Physical Exam Const Vital Signs: 07/24/23 08:43 07/24/23 08:43 07/24/23 09:36 Temperature 97.8 F Temperature Source Temporal Pulse Rate 67 Respiratory Rate 24 H Respiratory Effort Short of Breath Respiratory Pattern Blood Pressure 122/54 H Blood Pressure Mean 76 Pulse Ox 96 Oxygen Delivery Method Room Air Room Air Oxygen Flow Rate (L/min) 07/24/23 09:43 07/24/23 09:47 07/24/23 10:00 Temperature Temperature Source Pulse Rate 64 66 63 Respiratory Rate 18 16 18 Respiratory Effort Respiratory Pattern Normal Blood Pressure 144/84 H 116/52 L Blood Pressure Mean 104 73 Pulse Ox 100 95 Oxygen Delivery Method Room Air Room Air Oxygen Flow Rate (L/min) 07/24/23 10:04 07/24/23 11:13 07/24/23 11:15 Temperature 97.6 F L Temperature Source Temporal Pulse Rate 63 64 64 Respiratory Rate 25 H 19 H 29 H Respiratory Effort Respiratory Pattern Blood Pressure 116/52 L 116/50 L Blood Pressure Mean 73 70 Pulse Ox 94 96 Oxygen Delivery Method Room Air Nasal Cannula Nasal Cannula Oxygen Flow Rate (L/min) 2 2 07/24/23 12:00 07/24/23 13:00 07/24/23 13:33 Temperature 98.1 F Temperature Source Oral Pulse Rate 61 63 63 Respiratory Rate 20 H 17 22 H Respiratory Effort Respiratory Pattern Blood Pressure 138/61 H 144/72 H 143/77 H Blood Pressure Mean 84 96 99 Pulse Ox 95 97 98 Oxygen Delivery Method Nasal Cannula Nasal Cannula Nasal Cannula Oxygen Flow Rate (L/min) 2 2 2 07/24/23 14:00 07/24/23 14:17 Temperature 97.8 F Temperature Source Pulse Rate 62 65 Respiratory Rate 16 22 H Respiratory Effort Respiratory Pattern Blood Pressure 133/71 H 132/67 H Blood Pressure Mean 91 88 Pulse Ox 97 99 Oxygen Delivery Method Nasal Cannula Oxygen Flow Rate (L/min) 2 Positive well nourished and well developed General Appearance ED: well developed and NAD HEENT Reports moist mucous membranes Neck supple and no JVD Resp normal respiratory effort and clear to auscultation bilaterally Cardio regular rate and regular rhythm GI non-tender and non-distended Palpation: soft Neuro oriented x3, CN's II-XII intact bilaterally and no sensory deficits noted Sensorium / Orientation: alert Motor Exam: strength 5/5 throughout Psych mental status grossly normal Skin Skin Narrative: The surgical incision over the sternum is healing well. There are 3 other small incisions in the epigastric area that are healing. Daughter stated that there was some drainage from these wounds yesterday. MDM MDM MDM Narrative Medical decision making narrative: Differential diagnosis includes cardiac dysrhythmia, cardiac ischemia, pulmonary embolism pneumonia, pneumothorax, congestive heart failure, rib fracture, and anxiety. EKG will be obtained to assess for cardiac dysrhythmia and cardiac ischemia. CTA of the chest will be obtained to assess for pulmonary embolism, pneumonia, and pneumothorax. CBC will be obtained to assess for leukocytosis and anemia. Basic metabolic profile will be obtained to assess for electrolyte abnormality and renal function. High-sensitivity troponin will be obtained to assess for cardiac ischemia. BNP will be obtained to assess for congestive heart failure. Lab Data Attestation: I reviewed the patient's lab results. Lab results narrative: CBC was reviewed. There is a mild anemia with a hemoglobin of 8.3 and hematocrit 26.9. Platelets were normal. PT with INR and PTT were reviewed. Pro time was 18.9 and INR is 1.6. PTT was normal at 31.4. Basic metabolic profile was reviewed. Potassium was slightly low at 2.9. Glucose was slightly elevated at 143. The remainder is within normal limits. Anion gap was normal. BNP was reviewed and was elevated at 506.2. Initial high-sensitivity troponin was reviewed and was elevated at 187. 2-hour repeat high-sensitivity troponin was reviewed and was slightly elevated at 191. This is improved compared to previous result. Labs: Laboratory Results - last 24 hr 07/24/23 07/24/23 08:50 11:25 WBC 7.5 RBC 2.70 L Hgb 8.3 L Hct 26.9 L MCV 99.6 H MCH 30.7 MCHC 30.9 L RDW Std Deviation 56.3 H RDW Coeff of Tan 16.3 H Plt Count 400 MPV 9.0 Immature Gran % (Auto) 0.900 Neut % (Auto) 75.6 H Lymph % (Auto) 12.2 L Addison % (Auto) 7.1 Eos % (Auto) 3.8 Baso % (Auto) 0.4 Absolute Neuts (auto) 5.6 Absolute Lymphs (auto) 0.91 Nucleated RBC % 0 PT 18.9 H INR 1.6 APTT 31.4 Sodium 139 Potassium 2.9 L Chloride 107 Carbon Dioxide 25.0 Anion Gap 7 BUN 8 Creatinine 0.94 Estim Creat Clear Calc 53.51 Est GFR (MDRD) Af Amer 76 Est GFR (MDRD) Non-Af 62 BUN/Creatinine Ratio 8.5 L Glucose 143 H Calcium 8.9 Troponin I High Sens 187 H* 191 H* B-Natriuretic Peptide 506.2 H Radiography CTA PE Study: No Evidence of PE and No Evidence of Dissection Diagnostic Testing: Clinical Impression(s) from Imaging Studies Chest CTA 07/24/23 10:39 IMPRESSION: 1. No evidence of central pulmonary embolism. Suboptimal evaluation of the peripheral branches. 2. Moderate bilateral pleural effusions larger on the right side. 3. Compressive atelectatic changes in the lower lobes. Superimposed pneumonic process cannot be excluded. 4. Infiltrate/atelectasis in the right middle lobe. Electronically Signed: Oli Logan MD at 11:30 EDT , CTA of the chest was obtained. There is no evidence of pulmonary embolism. There are moderate bilateral pleural effusions, worse on the right. There is atelectasis versus infiltrate in the right middle lobe. This was interpreted by the radiologist was also independently reviewed by myself. EKG Initial EKG: Attestation: I personally reviewed and interpreted this EKG as follows: Interpretation: Sinus Rhythm (67) and No Acute Injury Pattern Comments: EKG was obtained. On my independent interpretation, it showed a normal sinus rhythm with a rate of 67. [place] interval, QRS interval, and QTc intervals were all normal. [place] was normal. There are nonspecific ST-T wave changes. Prior EKG tracings: available for review Prior: Changed (When compared to previous EKG dated 07/04/2023, the nonspecific ST-T wave changes in the anterior leads show some mild flattening compared to previous.) Management Discussion w/another healthcare provider: Hospitalist and Gas Furnace Installer Treatment and Re-Evaluation :: Patient was given morphine and Zofran. Patient was given a DuoNeb aerosol. Because of the atelectasis versus infiltrate on the CT scan, patient was given a dose of Levaquin here. Case was discussed with Dr. Summers, hollow ware maker on-call. He stated that the patient could be admitted here for observation for serial troponin testing. Patient is agreeable with this. Case was discussed with the hospitalist. He will admit the patient to his service. Patient understood and was agreeable with the plan. All questions were answered. Discharge Plan Triage Chief Complaint: Chest Pain ED Provider: Prince Basilio Dx/Rx/DC Orders Clinical Impression: Chest pain, CAD (coronary artery disease), Pneumonia Prescriptions: No Action atorvastatin 80 mg tablet 80 mg PO QHS Qty: 90 3RF isosorbide mononitrate 60 mg tablet extended release 24 hr 60 mg PO DAILY nitroglycerin 0.4 mg tablet, sublingual 0.4 mg SUBLINGUAL Q5-15M PRN (Reason: chest pain) Qty: 25 2RF furosemide 40 mg tablet 40 mg PO DAILY Qty: 3 0RF duloxetine 20 mg capsule,delayed release(DR/EC) 20 mg PO DAILY Patient Comments: take 1 capsule by mouth once daily cholecalciferol (vitamin D3) 1,250 mcg (50,000 unit) capsule 1,250 mcg PO QWEEK pantoprazole 40 mg tablet,delayed release (DR/EC) 40 mg PO QDAY cetirizine 10 mg tablet 10 mg PO QDAY albuterol sulfate 1.25 mg/3 mL solution for nebulization 1.25 mg INHALATION Q4H PRN (Reason: sob/wheezing) fluticasone propionate 50 mcg/actuation spray,suspension 1 spray intranasal BID amiodarone 200 mg tablet 200 mg PO Q12H Rx Instructions: BID X5D, THEN 1 TAB DAILY prochlorperazine maleate 5 mg tablet 5 mg PO TID Rx Instructions: X3D clopidogrel 75 mg tablet 75 mg PO DAILY tramadol 50 mg tablet 50 mg PO Q8H PRN amlodipine 10 mg tablet 10 mg PO DAILY metoprolol tartrate 50 mg tablet 50 mg PO TID folic acid 1 mg tablet 1 mg PO DAILY albuterol sulfate 90 mcg/actuation HFA aerosol inhaler 2 puff inhalation Q6H PRN PRN (Reason: wheezing) potassium chloride 10 mEq tablet,ER particles/crystals 20 meq PO DAILY Qty: 180 3RF Eliquis 5 mg tablet 5 mg PO BID Qty: 60 11RF carvedilol 3.125 mg tablet 3.125 mg PO BID Qty: 60 11RF Rx Instructions: must administer with a meal/food Primary Care Provider: Leonor Orellana NP Referrals: Leonor Orellana NP, PRODUCTION MACHINE COMPUTER OPERATOR-C [Primary Care Provider] - Print Language: Yemeni Disposition Disposition: Acute Care Hospital [facility]
--- NOTE | 2023-07-24 09:23 | EKG12_ITS ---
Test Reason : CP Blood Pressure : / mmHG Vent. Rate : 067 BPM Atrial Rate : 067 BPM P-R Int : 136 ms QRS Dur : 078 ms QT Int : 446 ms P-R-T Axes : 077 030 070 degrees QTc Int : 471 ms Normal sinus rhythm Nonspecific T wave abnormality Abnormal ECG Confirmed by Javier Wilhelm ([id number]), supervising editor news reel RUDY KIRK ([id number]) on 07/25/2023 11:21:51 AM Referred By: REGGIE Confirmed By:Javier Wilhelm
[2023-07-24 09:34] LABS: Absolute Lymphocyte Count 0.91 X10^3/uL (0.83-4.51); Absolute Neutrophil Count 5.6 X10^3/uL (2.0-7.7); Basophil# 0.03 X10^3/uL; Basophil% 0.4 % (0-1); Eosinophil# 0.28 X10^3/uL; Eosinophils% 3.8 % (0-5); Hematocrit 26.9 % (37-47); Hemoglobin 8.3 g/dL (12.0-15.0); Lymphocyte # 0.91 X10^3/ul (0.83-4.51); Lymphocyte % 12.2 % (19-41); Mean Corp Hgb Conc 30.9 g/dL (32-36); Mean Corpuscular Hgb 30.7 pg (27.0-32.0); Mean Corpuscular Volume 99.6 fL (81-99); Monocyte# 0.53 X10^3/uL; Monocyte% 7.1 % (0-10); NRBC Flagged by Analyzer 0 % (0-5); Neutrophil # 5.64 X10^3/uL (2.7-7.7); Neutrophil % 75.6 % (47-70); Platelet Count 400 K/mm3 (150-450); RBC Distribution Width CV 16.3 % (11.6-14.6); RBC Distribution Width SD 56.3 fl (35.1-43.9); White Blood Count 7.5 K/mm3 (4.4-11.0)
[2023-07-24 09:40] LABS: International Normalized Ratio 1.6; Partial Thromboplast Time 31.4 Seconds (24.1-36.2); Prothrombin Time (Protime)PT. 18.9 SECONDS (11.7-14.9)
[2023-07-24] MEDS: Ipratropium/Albuterol Sulfate 3 ML AMPUL.NEB INHALATION (09:45)
[2023-07-24] MEDS: Ondansetron 4 MG/2 ML Vial IV (09:49)
[2023-07-24] MEDS: Morphine 4 MG/ML Syringe IV (09:49)
[2023-07-24 10:26] LABS: Anion Gap 7 (5-15); BUN 8 mg/dL (7-18); BUN/Creat Ratio 8.5 RATIO (10-20); Calcium,Total 8.9 mg/dL (8.5-10.1); Chloride 107 mmol/L (98-107); Creatinine, Serum 0.94 mg/dL (0.55-1.02); EST Glomerular Filtration Rate 62 mL/min (>60); Est Glom Filt Rate - Afr Amer 76 mL/min (>60); Estimated Creatinine Clearance 53.51 ml/min; Glucose 143 mg/dL (74-106); Potassium 2.9 mmol/L (3.5-5.1); Sodium Level 139 mmol/L (136-145); Troponin-I HS 187 pg/mL (3.0-54.0)
--- NOTE | 2023-07-24 10:39 | CT_ITS ---
STUDY: CTA CHEST REASON FOR EXAM: Female, 72 years old. Chest pain RADIATION DOSAGE (If Supplied By Facility): CTDIvol = ( 8.80 ) mGy, DLP = ( 463.89 ) mGycm TECHNIQUE: The examination was performed with the intravenous administration of IV 100mL Isovue-370. Post-processing of the angiographic images was performed, with multiplanar reformation and 3D reconstruction. The protocol utilizes one or more of the following dose reduction techniques: automated exposure control, adjustment of mA and/or kV according to patient size,and/or use of iterative reconstruction technique. COMPARISON: Prior study dated: 05/11/2023 FINDINGS: Normal enhancement of the main pulmonary artery and right and left pulmonary arteries. There is limited enhancement of the bilateral peripheral pulmonary arteries. There is no demonstrated central pulmonary embolism. Difficult to evaluate the peripheral branches. There is atherosclerotic calcification of the aortic arch and descending thoracic aorta. The aorta otherwise is not enhanced. Sternal cerclage wires and vascular clips are present from a prior sternotomy and coronary artery bypass graft procedure (CABG). There are calcifications of the coronary arteries. Normal mediastinum. Normal hilar regions. Normal visualized trachea and bronchi. Compressive atelectatic changes in both lower lungs. Right middle lobe infiltrate/atelectasis. Pneumonic process cannot be excluded. Moderate bilateral pleural effusions larger on right side. Normal chest wall structures. There are degenerative changes of thoracic spine. Pain management wires in the spinal canal of the thoracic spine. Status post cholecystectomy. No demonstrated acute changes in the visualized upper abdomen. CT/CTA Chest W/WO Contrast IMPRESSION: 1. No evidence of central pulmonary embolism. Suboptimal evaluation of the peripheral branches. 2. Moderate bilateral pleural effusions larger on the right side. 3. Compressive atelectatic changes in the lower lobes. Superimposed pneumonic process cannot be excluded. 4. Infiltrate/atelectasis in the right middle lobe. Electronically Signed: Oli Logan MD at 11:30 EDT ,
[2023-07-24 11:00] LABS: BNP,B-Type NATRIURETIC PEPTIDE 506.2 pg/mL (0-100)
[2023-07-24 11:56] LABS: Troponin-I HS 191 pg/mL (3.0-54.0)
[2023-07-24] MEDS: levoFLOXacin IV 750 MG/150 ML BAG 100 MG IV (13:45)
[2023-07-24] MEDS: Lidocaine 5% Patch 1 PATCH TOPICAL (14:15)
--- NOTE | 2023-07-24 14:54 | ED.RN ---
Unable to complete home medication list due to hospitalist in chart.
--- NOTE | 2023-07-24 15:03 | PCM.HP.STD ---
[facility] - General General Date of Admission: 07/24/23 Date of Service: 07/24/23 Chief Complaint: Shortness of breath HPI Narrative SLY SNELL, is a 72 F past medical history of coronary artery disease, NSTEMI, s/p CABG, paroxysmal A-fib, hypertension who presents to the ED with concerns regarding shortness of shortness of breath since last 2 days. There is no associated cough or runny nose. She recently underwent coronary artery bypass graft surgery for coronary artery disease at [facility] 2 weeks ago. At the time of presentation in the ED +67, blood pressure 122/54, 96% on room air but desaturated with walking and was started on nasal cannula 2 L with improvement in oxygenation. Has a remote history of smoking. CTA showed no evidence of pulm embolism, moderate bilateral pleural effusions, compressive atelectatic changes in lower lobes and atelectasis in the right middle lobe. [facility] Medical History (Updated 07/24/23 @ 14:[address] 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 Paroxysmal atrial fibrillation Osteoporosis Nicotine dependence, cigarettes, in remission Fibroadenoma RLS (restless legs syndrome) Carotid artery disease ERICKA (obstructive sleep apnea) Nicotine dependence in remission Atherosclerotic heart disease [place] coronary artery w/angina pectoris intermttent type 2 heart block GERD (gastroesophageal reflux disease) Obesity Hypertension Hyperlipidemia Home Medications ?Medication ?Instructions ?Recorded ?Last Taken ?Type atorvastatin 80 mg tablet 80 mg PO QHS cholesterol #90 tabs 01/11/18 07/23/23 Rx furosemide 40 mg tablet 40 mg PO DAILY diuretic #3 tabs 02/02/22 07/23/23 Rx duloxetine 20 mg capsule,delayed 20 mg PO DAILY mood 04/27/22 07/23/23 History release potassium chloride 10 mEq 20 meq (2 x 10 mEq) PO DAILY 10 12/22/22 07/23/23 Rx tablet,extended release(part/cryst) meq pills for easier swallowing #180 tabs apixaban 5 mg tablet (Eliquis) 5 mg PO BID blood thinner #60 tabs 01/25/23 07/24/23 Rx albuterol sulfate 1.25 mg/3 mL 1.25 mg inhalation Q4H PRN 06/16/23 Unknown History solution for nebulization sob/wheezing pantoprazole 40 mg tablet,delayed 40 mg PO QDAY reflux 06/16/23 07/23/23 History release albuterol sulfate 90 mcg/actuation 2 puff inhalation Q6H PRN PRN 07/24/23 07/24/23 History aerosol inhaler wheezing amiodarone 200 mg tablet 200 mg PO Q12H 07/24/23 07/23/23 History ascorbic acid (vitamin C) 500 mg 500 mg PO DAILY 07/24/23 07/23/23 History tablet calcium carbonate (Antacid 400 mg PO BID PRN dyspepsia 07/24/23 Unknown History (calcium carbonate)) clopidogrel 75 mg tablet 75 mg PO DAILY 07/24/23 07/23/23 History ferrous sulfate 325 mg (65 mg 325 mg PO DAILY 07/24/23 07/23/23 History iron) tablet (FeroSul) folic acid 1 mg tablet 1 mg PO DAILY 07/24/23 Unknown History melatonin 3 mg capsule 3 mg PO QHS PRN sleep 07/24/23 Unknown History metoprolol tartrate 50 mg tablet 50 mg PO TID 07/24/23 07/24/23 History sennosides 8.6 mg-docusate sodium 1 tab-cap PO BID PRN constipation 07/24/23 Unknown History 50 mg tablet (Colace 2-In-1) tramadol 50 mg tablet 50 mg PO Q8H PRN pain 07/24/23 Unknown History Allergy/AdvReac Type Severity Reaction Status Date / Time doxycycline Allergy Unknown Verified 07/24/23 08:43 metoprolol AdvReac intermittent Verified 07/24/23 08:43 heart block oxycodone AdvReac vomiting Verified 07/24/23 08:43 Family History Brother CAD (coronary artery disease) CABG Mother CAD (coronary artery disease) Diabetes Sister , Age 13 Myocarditis Cancer Sister Cancer Other Dyspnea Fatigue Surgical History (Updated 07/24/23 @ 09:[address] Prince Basilio, DO) S/P CABG x 3 S/P insertion of spinal cord stimulator History of left heart catheterization (09/05/19) History of coronary artery stent placement (07/12/18) H/O breast biopsy History of hysterectomy Hx of cholecystectomy H/O carotid endarterectomy (~09/05/12) Social History household members: spouse Smoking Status: Current every day smoker tobacco type: cigarettes Tobacco: How many years used: 40 how long ago did patient quit smoking: Had previously quit in 2018 but started again, currently smoking 1 pk/wk. second hand exposure: Yes alcohol intake: never substance use type: does not use caffeine: Yes Type: carbonated beverages Number of servings: 2 ROS Review of Systems ROS Unobtainable: Denies due to encephalopathy, due to endotracheal tube, due to mental condition, due to mental status or other Constitutional Constitutional: Denies anorexia, change in weight, chills, fatigue, fever(s), malaise, night sweats, weakness or other Eyes Eyes: Denies blurry vision, change in eye color, change in vision, discharge from eye(s), double vision, erythema, eye pain, loss of vision or other ENT HEENT: Denies abnormal hearing, dysphagia, ear pain, epistaxis, headache(s), hearing loss, nasal congestion, nasal discharge, post nasal drip, sinus pressure, sore throat or other Cardiovascular Cardiovascular: Denies chest pain, claudication, dyspnea on exertion, edema, lightheadedness, orthopnea, palpitations, paroxysmal nocturnal dyspnea, rapid heart rate, syncope or other Respiratory/Chest Respiratory/Chest: Reports cough and dyspnea Gastrointestinal Gastrointestinal: Denies abdominal pain, coffee ground emesis, constipation, diarrhea, dyspepsia, hematemesis, hematochezia, loose stools, melena, nausea, vomiting or other Genitourinary Genitourinary: Denies burning urination, difficulty urinating, dysuria, hematuria, nocturia, urinary frequency, urinary hesitancy, urinary incontinence, urinary urgency or other Musculoskeletal Musculoskeletal: Denies arthralgias, back pain, joint pain, joint stiffness, joint swelling, myalgias, neck pain or other Neurologic Neurologic: Denies abnormal gait, abnormal speech, confusion, disequilibrium, dizziness, focal weakness, headache(s), numbness, paresthesias, seizure-like activity, seizures, syncope, tingling, tremor(s) or other Psychiatric Psychiatric: Denies anxiety, depression, homicidal ideation, suicidal ideation or other Endocrine Endocrinology: Denies change in body appearance, cold intolerance, excessive sweating, heat intolerance, polydipsia, polyuria or other Hematologic/Lymphatic Hematologic/Lymphatic: Denies anemia, easy bleeding, easy bruising, lymphadenopathy or other Allergic/Immunologic Allergic/Immunologic: Denies rhinitis, hives, eczemia, asthma or other Vital Signs Vital Signs Vital Signs: 07/24/23 08:43 07/24/23 08:43 07/24/23 09:36 Temperature 97.8 F Temperature Source Temporal Pulse Rate 67 Respiratory Rate 24 H Respiratory Effort Short of Breath Respiratory Pattern Blood Pressure 122/54 H Blood Pressure Mean 76 Pulse Ox 96 Oxygen Delivery Method Room Air Room Air Oxygen Flow Rate (L/min) 07/24/23 09:43 07/24/23 09:47 07/24/23 10:00 Temperature Temperature Source Pulse Rate 64 66 63 Respiratory Rate 18 16 18 Respiratory Effort Respiratory Pattern Normal Blood Pressure 144/84 H 116/52 L Blood Pressure Mean 104 73 Pulse Ox 100 95 Oxygen Delivery Method Room Air Room Air Oxygen Flow Rate (L/min) 07/24/23 10:04 07/24/23 11:13 07/24/23 11:15 Temperature 97.6 F L Temperature Source Temporal Pulse Rate 63 64 64 Respiratory Rate 25 H 19 H 29 H Respiratory Effort Respiratory Pattern Blood Pressure 116/52 L 116/50 L Blood Pressure Mean 73 70 Pulse Ox 94 96 Oxygen Delivery Method Room Air Nasal Cannula Nasal Cannula Oxygen Flow Rate (L/min) 2 2 07/24/23 12:00 07/24/23 13:00 07/24/23 13:33 Temperature 98.1 F Temperature Source Oral Pulse Rate 61 63 63 Respiratory Rate 20 H 17 22 H Respiratory Effort Respiratory Pattern Blood Pressure 138/61 H 144/72 H 143/77 H Blood Pressure Mean 84 96 99 Pulse Ox 95 97 98 Oxygen Delivery Method Nasal Cannula Nasal Cannula Nasal Cannula Oxygen Flow Rate (L/min) 2 2 2 07/24/23 14:00 07/24/23 14:17 Temperature 97.8 F Temperature Source Pulse Rate 62 65 Respiratory Rate 16 22 H Respiratory Effort Respiratory Pattern Blood Pressure 133/71 H 132/67 H Blood Pressure Mean 91 88 Pulse Ox 97 99 Oxygen Delivery Method Nasal Cannula Oxygen Flow Rate (L/min) 2 Weight Weight: 194 lb 14.218 oz Body Mass Index (BMI) 38.0 Physical Exam Const alert and oriented x3 HEENT normocephalic and head/scalp atraumatic Eyes PERRL Neck no lymphadenopathy Resp normal respiratory effort Cardio regular rate and regular rhythm GI normal to inspection, nondistended, normoactive bowel sounds Extremity normal to inspection Neuro oriented x3 Results Medical Records Data Attestation: I reviewed the patient's medical records Lab / Micro Data Attestation: I reviewed the patient's lab results. 07/24/23 08:50 07/24/23 08:50 Labs: Laboratory Results - last 24 hr 07/24/23 08:50: WBC 7.5, RBC 2.70 L, Hgb 8.3 L, Hct 26.9 L, MCV 99.6 H, MCH 30.7, MCHC 30.9 L, RDW Std Deviation 56.3 H, RDW Coeff of Tan 16.3 H, Plt Count 400, MPV 9.0, Immature Gran % (Auto) 0.900, Neut % (Auto) 75.6 H, Lymph % (Auto) 12.2 L, [place] % (Auto) 7.1, Eos % (Auto) 3.8, Baso % (Auto) 0.4, Absolute Neuts (auto) 5.6, Absolute Lymphs (auto) 0.91, Nucleated RBC % 0, PT 18.9 H, INR 1.6, APTT 31.4, Sodium 139, Potassium 2.9 L, Chloride 107, Carbon Dioxide 25.0, Anion Gap 7, BUN 8, Creatinine 0.94, Estim Creat Clear Calc 53.51, Est GFR (MDRD) Af Amer 76, Est GFR (MDRD) Non-Af 62, BUN/Creatinine Ratio 8.5 L, Glucose 143 H, Calcium 8.9, Troponin I High Sens 187 H*, B-Natriuretic Peptide 506.2 H 07/24/23 11:25: Troponin I High Sens 191 H* Imaging Radiology Impression Chest CTA 07/24/23 10:39 IMPRESSION: 1. No evidence of central pulmonary embolism. Suboptimal evaluation of the peripheral branches. 2. Moderate bilateral pleural effusions larger on the right side. 3. Compressive atelectatic changes in the lower lobes. Superimposed pneumonic process cannot be excluded. 4. Infiltrate/atelectasis in the right middle lobe. Electronically Signed: Oli Logan MD at 11:30 EDT , Assessment & Plan Assessment/Plan (1) Dyspnea on minimal exertion: PLAN: Plan 72-year-old female with history of recent coronary artery disease s/p CABG, A-fib, dyslipidemia, hypertension, GERD presents to the ED with concerns regarding worsening shortness of breath and features of bilateral pleural effusion on CT scan. This could be likely a viral pneumonia, or cardiac or pneumonia. She is being admitted for observation given her need for oxygen requirement. #Acute on chronic respiratory failure: -Likely in the setting of bilateral pleural effusion 2/2 required pneumonia -Start ceftriaxone plus azithromycin -Respiratory therapy consult -PT/OT consult -Case management consult regarding oxygen for home discharge #COPD: Continue albuterol medication #A-fib: Continue amiodarone 200 mg 12 hours -Continue apixaban 5 mg daily #Hypertension continue amlodipine 10 mg daily #Dyslipidemia: Continue atorvastatin 80 mg daily #Coronary artery disease: Continue clopidogrel and an aspirin #DVT: Already on anticoagulation. Charges/Coding Visit Charges Inpatient E&M: 54706 Init Hosp L2
[2023-07-24] MEDS: traMADol 50 MG Tablet PO (16:51)
[2023-07-24] MEDS: Albuterol 2.5 MG/3 ML VIAL.NEB. INHALATION (17:12)
[2023-07-24] MEDS: Furosemide 40 MG/4 ML Vial IV (18:59)
[2023-07-24] MEDS: Potassium Phosphate 15 MM in 0.9% Normal Saline (250mL Bag) 250 ML 125 MM IV (19:32)
[2023-07-24] MEDS: APIXABAN 5 MG TABLET PO (21:27)
[2023-07-24] MEDS: Metoprolol Tartrate 50 MG Tablet PO (21:27)
[2023-07-24] MEDS: Atorvastatin Calcium 80 MG Tablet PO (21:27)
[2023-07-24] MEDS: MELATONIN 3 MG TABLET PO (23:11)
[2023-07-24] MEDS: Potassium Chloride Oral Tablet 20 MEQ 60 MEQ PO (23:11)
[2023-07-25] VITALS (9 sets, daily range): BP systolic 104–141; BP diastolic 45–57; PULSE 60–88; RESP 16–18; TEMP 36.3–36.9; O2SAT 89–97
--- NOTE | 2023-07-25 03:31 | EKG12_ITS ---
Test Reason : CP Blood Pressure : / mmHG Vent. Rate : 063 BPM Atrial Rate : 063 BPM P-R Int : 140 ms QRS Dur : 074 ms QT Int : 456 ms P-R-T Axes : 072 032 037 degrees QTc Int : 466 ms Normal sinus rhythm Normal ECG When compared with ECG of 24-JUL-2023 08:48, MANUAL COMPARISON REQUIRED, DATA IS UNCONFIRMED Confirmed by LJ SHI, VARINDER ([id number]), supervising film or videotape editor RUDY KIRK ([id number]) on 07/26/2023 5:52:52 AM Referred By: Confirmed By:VARINDER CALHOUN MD
[2023-07-25] MEDS: traMADol 50 MG Tablet PO ×2 (03:34→12:21)
[2023-07-25 05:31] LABS: Absolute Lymphocyte Count 0.78 X10^3/uL (0.83-4.51); Basophil# 0.02 X10^3/uL; Basophil% 0.3 % (0-1); Eosinophils% 4.4 % (0-5); Hematocrit 25.8 % (37-47); Hemoglobin 7.8 g/dL (12.0-15.0); Lymphocyte # 0.78 X10^3/ul (0.83-4.51); Lymphocyte % 11.5 % (19-41); Mean Corp Hgb Conc 30.2 g/dL (32-36); Mean Corpuscular Hgb 30.6 pg (27.0-32.0); Mean Corpuscular Volume 101.2 fL (81-99); Mean Platelet Vol. 9.1 fl (6.2-12.0); Monocyte% 8.8 % (0-10); NRBC Flagged by Analyzer 0 % (0-5); Neutrophil # 5.04 X10^3/uL (2.7-7.7); Neutrophil % 74.1 % (47-70); Platelet Count 361 K/mm3 (150-450); RBC Distribution Width CV 16.5 % (11.6-14.6); RBC Distribution Width SD 58.2 fl (35.1-43.9); Red Blood Count 2.55 M/mm3 (4.2-5.4); White Blood Count 6.8 K/mm3 (4.4-11.0)
[2023-07-25 06:34] LABS: Troponin-I HS 147 pg/mL (3.0-54.0)
[2023-07-25 06:49] LABS: ALB/GLOB Ratio 0.7 RATIO (0.9-2.4); AST(SGOT) 34 U/L (15-37); Alanine Aminotransfer ALT/SGPT 43 U/L (13-56); Albumin, Serum 2.4 g/dL (3.2-5.0); Alkaline Phosphatase 133 U/L (45-117); Anion Gap 5 (5-15); BUN 9 mg/dL (7-18); BUN/Creat Ratio 9.8 RATIO (10-20); Bilirubin, Direct 0.27 mg/dL (0.00-0.30); Calcium,Total 9.1 mg/dL (8.5-10.1); Chloride 104 mmol/L (98-107); Creatinine, Serum 0.92 mg/dL (0.55-1.02); EST Glomerular Filtration Rate 64 mL/min (>60); Est Glom Filt Rate - Afr Amer 77 mL/min (>60); Estimated Creatinine Clearance 53.91 ml/min; Globulin 3.5 g/dL (2.2-4.2); Glucose 98 mg/dL (74-106); Magnesium 1.8 mg/dL (1.6-2.6); Phosphorus 4.2 mg/dL (2.5-4.9); Potassium 4.2 mmol/L (3.5-5.1); Protein, Total 5.9 g/dL (6.4-8.2); Sodium Level 136 mmol/L (136-145); Thyroid Stim Hormone (TSH) 3.22 uIU/mL (0.358-3.74)
[2023-07-25 07:26] LABS: International Normalized Ratio 1.9; Prothrombin Time (Protime)PT. 21.3 SECONDS (11.7-14.9)
[2023-07-25] MEDS: APIXABAN 5 MG TABLET PO (08:44)
[2023-07-25] MEDS: Clopidogrel Bisulfate 75 MG Tablet PO (08:45)
[2023-07-25] MEDS: DULoxetine Hcl 20 MG Capsule PO (08:45)
[2023-07-25] MEDS: Furosemide 40 MG Tablet PO (08:45)
[2023-07-25] MEDS: Amiodarone 200 MG Tablet PO (08:45)
[2023-07-25] MEDS: Ferrous Sulfate 325 MG Tablet PO (08:45)
[2023-07-25] MEDS: Pantoprazole Sodium 40 MG Tablet PO (08:45)
--- NOTE | 2023-07-25 10:50 | CASEMGMT ---
KAYLI CAMACHO in to discuss needs at discharge with patient. Patient states [facility] and is not satified with services and would like to change HHC agencies. Patient currently on oxygen, discussed possible need at discharge. KAYLI CAMACHO reviewed DME agencies with patient and she would like [employer] for DME. A list of [facility] providers including quality and resource use data and consistent with the patient?s preferred geographical region, medical needs, and insurance network were provided from the [employer]. Daughter on speaker phone with patient. Patient and daughter inquiring about inpatient rehab and cardiac rehab. KAYLI CAMACHO reviewed different levels of care at discharge with patient and daughter. Daughter states she will be coming in to discuss discahrge planning. KAYLI CAMACHO updated patient and daughter that RN DOUG will review therapy notes and recommendations and will follow-up with paient and daughter. Patient and daughter had no further questions or concerns at this time. CM will continue to follow this patient and plan for a safe discharge.
--- NOTE | 2023-07-25 10:58 | DCINST_ITS ---
Discharge Instructions Diet Discharge Diet: No restrictions Activity Discharge Activity: Return to Normal Activity Weight Bearing Status: Full weight bearing Dressing / Incision Call your doctor if you observe: Fever of 101 or Higher Follow Up Care Test Results: Test results from this visit will be discussed in further detail at your follow- up appointment, if applicable. Discharge Plan Admission Admit Date/Time: 07/24/23 14:28 Primary Reason for Your Visit: hypoxia, pleural effusions Attending Provider: Hussein Milian Primary Care Provider: Leonor Orellana NP Consulting Providers: Bhargav Ng Discharge Orders/Prescriptions Prescriptions: New furosemide 40 mg Tablet 40 mg PO BID Qty: 60 0RF amiodarone 200 mg Tablet 200 mg PO DAILY Qty: 0 0RF potassium chloride 10 mEq tablet extended release 20 meq PO BID Qty: 120 0RF Continued atorvastatin 80 mg tablet 80 mg PO QHS Qty: 90 3RF duloxetine 20 mg capsule,delayed release(DR/EC) 20 mg PO DAILY Patient Comments: take 1 capsule by mouth once daily pantoprazole 40 mg tablet,delayed release (DR/EC) 40 mg PO QDAY albuterol sulfate 1.25 mg/3 mL solution for nebulization 1.25 mg INHALATION Q4H PRN (Reason: sob/wheezing) clopidogrel 75 mg tablet 75 mg PO DAILY tramadol 50 mg tablet 50 mg PO Q8H PRN metoprolol tartrate 50 mg tablet 50 mg PO TID folic acid 1 mg tablet 1 mg PO DAILY albuterol sulfate 90 mcg/actuation HFA aerosol inhaler 2 puff inhalation Q6H PRN PRN (Reason: wheezing) ascorbic acid (vitamin C) 500 mg tablet 500 mg PO DAILY calcium carbonate [Antacid (calcium carbonate)] 200 mg calcium (500 mg) tablet,chewable 400 mg PO BID PRN (Reason: dyspepsia) ferrous sulfate [FeroSul] 325 mg (65 mg iron) tablet 325 mg PO DAILY sennosides-docusate sodium [Colace 2-In-1] 8.6-50 mg tablet 1 tab-cap PO BID PRN (Reason: constipation) melatonin 3 mg capsule 3 mg PO QHS PRN (Reason: sleep) Eliquis 5 mg tablet 5 mg PO BID Qty: 60 11RF Discontinued furosemide 40 mg tablet 40 mg PO DAILY Qty: 3 0RF amiodarone 200 mg tablet 200 mg PO Q12H Rx Instructions: BID X5D, THEN 1 TAB DAILY potassium chloride 10 mEq tablet,ER particles/crystals 20 meq PO DAILY Qty: 180 3RF Referrals / Follow Up: Leonor Orellana NP, EXECUTIVE LEGAL SECRETARY-C [Primary Care Provider] -
[2023-07-25] MEDS: Ceftriaxone 2 GM in 0.9% Normal Saline (50mL MB+) 50 ML IV (11:06)
[2023-07-25] MEDS: Albuterol 2.5 MG/3 ML VIAL.NEB. INHALATION (14:53)
--- NOTE | 2023-07-25 15:16 | CASEMGMT ---
KAYLI CAMACHO in to complete HASSAN Form. KAYLI CAMACHO explained HASSAN form to patient, patient voiced understanding. Patient signed HASSAN Form and filed in chart. Patient provided with copy of signed HASSAN Form. Patient had no further questions or concerns.
[2023-07-25] MEDS: Metoprolol Tartrate 50 MG Tablet PO (15:30)
--- NOTE | 2023-07-25 16:12 | PCM.TXEXTCAR ---
Diet Diet Order/Speech Therapy: 07/24/23 15:20 Diet: Regular - General Food consistency:: Regular Liquid Consistency:: Regular/Thin Is pt able to select menu?: Yes Routine Orders/Code Status O2 Liters per Minute: 2 O2 Frequency: Continuous Keep PO Greater than or Equal to (%): 90 Code Status: Full Code Wound(s) LLE: Wound Type: Surgical Incision Chest: Wound Type: Surgical Incision upper abdomen: Wound Type: Surgical Incision Problem/Diagnosis (1) Dyspnea on minimal exertion: Status: Acute Code(s): R06.09 - Other forms of dyspnea (2) Pleural effusion: Status: Acute Code(s): J90 - Pleural effusion, not elsewhere classified (3) Atelectasis of both lungs: Status: Acute Code(s): J98.11 - Atelectasis (4) CAD (coronary artery disease): Status: Chronic Code(s): I25.10 - Atherosclerotic heart disease of [place] coronary artery without angina pectoris (5) ERICKA (obstructive sleep apnea): Status: Chronic Code(s): G47.33 - Obstructive sleep apnea (adult) (pediatric) Comment: CPAP of 11 cm of water (6) Paroxysmal atrial fibrillation: Status: Chronic Code(s): I48.0 - Paroxysmal atrial fibrillation (7) Debility: Status: Acute Code(s): R53.81 - Other malaise Allergies/Procedures Done in Hospital Allergies doxycycline Allergy (Verified 07/24/23 08:43) Unknown metoprolol Adverse Reaction (Verified 07/24/23 08:43) intermittent heart block oxycodone Adverse Reaction (Verified 07/24/23 08:43) vomiting Procedures: None Type of Care/Length of Stay Estimated LOS: Convalescent Care Less Than 30 days Type of Care Needed: Acute Rehab Rehab Potential: Good Prognosis: Good Additional Orders/Day of Discharge H&P will serve as current which was dated: 07/24/23 Day of Discharge: 07/25/23 Discharge Plan Admission Admit Date/Time: 07/24/23 14:28 Primary Reason for Your Visit: hypoxia, pleural effusions Attending Provider: Hussein Milian Primary Care Provider: Leonor Orellana NP Consulting Providers: Bhargav Ng Discharge Orders/Prescriptions Prescriptions: New furosemide 40 mg Tablet 40 mg PO BID Qty: 60 0RF amiodarone 200 mg Tablet 200 mg PO DAILY Qty: 0 0RF potassium chloride 10 mEq tablet extended release 20 meq PO BID Qty: 120 0RF ipratropium-albuterol 0.5 mg-3 mg(2.5 mg base)/3 mL Solution For Nebulization 3 ml inhalation Q6H.RT Qty: 0 0RF Continued atorvastatin 80 mg tablet 80 mg PO QHS Qty: 90 3RF duloxetine 20 mg capsule,delayed release(DR/EC) 20 mg PO DAILY Patient Comments: take 1 capsule by mouth once daily pantoprazole 40 mg tablet,delayed release (DR/EC) 40 mg PO QDAY albuterol sulfate 1.25 mg/3 mL solution for nebulization 1.25 mg INHALATION Q4H PRN (Reason: sob/wheezing) clopidogrel 75 mg tablet 75 mg PO DAILY tramadol 50 mg tablet 50 mg PO Q8H PRN metoprolol tartrate 50 mg tablet 50 mg PO TID folic acid 1 mg tablet 1 mg PO DAILY ascorbic acid (vitamin C) 500 mg tablet 500 mg PO DAILY calcium carbonate [Antacid (calcium carbonate)] 200 mg calcium (500 mg) tablet,chewable 400 mg PO BID PRN (Reason: dyspepsia) ferrous sulfate [FeroSul] 325 mg (65 mg iron) tablet 325 mg PO DAILY sennosides-docusate sodium [Colace 2-In-1] 8.6-50 mg tablet 1 tab-cap PO BID PRN (Reason: constipation) melatonin 3 mg capsule 3 mg PO QHS PRN (Reason: sleep) Eliquis 5 mg tablet 5 mg PO BID Qty: 60 11RF Discontinued furosemide 40 mg tablet 40 mg PO DAILY Qty: 3 0RF amiodarone 200 mg tablet 200 mg PO Q12H Rx Instructions: BID X5D, THEN 1 TAB DAILY albuterol sulfate 90 mcg/actuation HFA aerosol inhaler 2 puff inhalation Q6H PRN PRN (Reason: wheezing) potassium chloride 10 mEq tablet,ER particles/crystals 20 meq PO DAILY Qty: 180 3RF Referrals / Follow Up: Leonor Orellana JAVA SUPPORT ENGINEER, JAVA SUPPORT ENGINEER-C [Primary Care Provider] - Disposition Disposition (needs filled in before D/C Order can be placed): Inpatient Rehab Unit/Facility
--- NOTE | 2023-07-25 16:20 | DS.PCM_ITS ---
Providers Date of Admission: 07/24/23 Date of Discharge: 07/25/23 Primary Care Physician: CHRISTIAN Mcqueen Reason For Visit: SHORTNESS OF BREATH Diagnosis Discharge Diagnosis (1) Dyspnea on minimal exertion: Status: Acute Code(s): R06.09 - Other forms of dyspnea (2) Pleural effusion: Status: Acute Code(s): J90 - Pleural effusion, not elsewhere classified (3) Atelectasis of both lungs: Status: Acute Code(s): J98.11 - Atelectasis (4) CAD (coronary artery disease): Status: Chronic Code(s): I25.10 - Atherosclerotic heart disease of [place] coronary artery without angina pectoris (5) ERICKA (obstructive sleep apnea): Status: Chronic Code(s): G47.33 - Obstructive sleep apnea (adult) (pediatric) (6) Paroxysmal atrial fibrillation: Status: Chronic Code(s): I48.0 - Paroxysmal atrial fibrillation (7) Debility: Status: Acute Code(s): R53.81 - Other malaise Plan Final diagnosis #1 hypoxia due to atelectasis and pleural effusions-resulting from recent coronary artery bypass surgery #2 acute debility secondary to #1 and recent coronary artery bypass surgery #3 chronic obstructive pulmonary disease #4 atelectasis of both lungs #5 coronary artery disease #6 paroxysmal A-fib #7 essential hypertension #8 hyperlipidemia #9 obstructive sleep apnea #10 anemia-etiology unclear Pneumonia was ruled out Medications at Discharge Home Medications atorvastatin 80 mg tablet 80 mg PO QHS cholesterol #90 tabs 01/11/18 duloxetine 20 mg capsule,delayed release 20 mg PO DAILY mood 04/27/22 apixaban 5 mg tablet (Eliquis) 5 mg PO BID blood thinner #60 tabs 01/25/23 albuterol sulfate 1.25 mg/3 mL solution for nebulization 1.25 mg inhalation Q4H PRN sob/wheezing 06/16/23 pantoprazole 40 mg tablet,delayed release 40 mg PO QDAY reflux 06/16/23 ascorbic acid (vitamin C) 500 mg tablet 1 g PO DAILY@1200 vitamin 07/24/23 calcium carbonate (Antacid (calcium carbonate)) 400 mg PO BID PRN dyspepsia 07/24/23 clopidogrel 75 mg tablet 75 mg PO DAILY anti platelet 07/24/23 ferrous sulfate 325 mg (65 mg iron) tablet (FeroSul) 325 mg PO DAILY@1200 vitamin 07/24/23 folic acid 1 mg tablet 1 mg PO DAILY vitamin 07/24/23 melatonin 3 mg capsule 3 mg PO QHS PRN sleep 07/24/23 metoprolol tartrate 50 mg tablet 50 mg PO TID blood pressure 07/24/23 tramadol 50 mg tablet 50 mg PO Q8H PRN pain 07/24/23 amiodarone 200 mg tablet 200 mg PO DAILY heart #0 tabs 07/25/23 furosemide 40 mg tablet 40 mg PO BID diuretic #60 tabs 07/25/23 ipratropium 0.5 mg-albuterol 3 mg (2.5 mg base)/3 mL nebulization soln 3 ml inhalation Q6H.RT wheezing #0 mL 07/25/23 potassium chloride 10 mEq tablet,extended release 20 meq (2 x 10 mEq) PO BID supp #120 tabs 07/25/23 Hospital Course Operations None Procedures None Summary of Care Provided Minutes Spent on Discharge: 31 Hospital Course: This 72-year-old white female was seen in the emergency room at [facility] with complaints of increasing shortness of breath over the last 7 to 10 days, she denied any chest pain. Patient had undergone recent coronary artery bypass surgery (three-vessel) at [facility] and was discharged home without supplemental oxygen. Patient stated that she required supplemental oxygen and it was supposed to be set up at home for her by home nursing but this was not carried out. Workup in the emergency room included CT of the chest which showed no evidence of pulmonary embolism, there were moderate bilateral pleural effusions larger on the right side, there are compressive atelectatic changes in the lower lobes. CBC showed a normal white blood cell count hemoglobin was 7.8. Beta natruretic peptide was elevated at 318. Patient was placed into observation status on PCU, she required supplemental oxygen at a low flow rate, she was placed on diuretics and initially she was given IV antibiotics over concerns regarding pneumonia-I did not feel the patient had pneumonia and these were stopped. Patient was seen by PT and OT, family requested that the patient go to an extended care facility or inpatient rehab facility for inpatient rehab services due to debility, patient consented to this. On 07/25/2023, patient was seen and examined: On examination she appeared in good health and spirits, she does not appear to be in any distress. Vital signs as documented. Skin warm and dry and without overt rashes. Neck without JVD, thyroid appears normal, trachea is midline, neck is supple. Lungs-decreased breath sounds were noted at the bases bilaterally. Heart exam notable for regular rhythm, normal sounds and absence of murmurs, rubs or gallops. Abdomen unremarkable and without evidence of organomegaly, masses, or abdominal aortic enlargement, bowel sounds are present in all 4 quadrants, no abdominal tenderness was noted. Extremities nonedematous, no cyanosis was noted, no clubbing was noted. Neuro: Cranial nerves II through XII are grossly intact, no focal motor deficits were noted, sensation to light touch and pinprick is intact, motor exam 5/5 throughout. Psych: Patient is alert and oriented x3, she does not appear anxious or depressed, she does not appear agitated. Patient was felt to be stable for transfer to the rehab unit at [facility] on 07/25/2023 Weight / BMI Weight Weight: 86.2 kg Body Mass Index (BMI) 37.0 ABG / Lab / Microbiology Data 07/25/23 04:35 07/25/23 04:35 Laboratory: Laboratory Results - last 24 hr 07/25/23 04:35: WBC 6.8, RBC 2.55 L, Hgb 7.8 L, Hct 25.8 L, MCV 101.2 H, MCH 30.6, MCHC 30.2 L, RDW Std Deviation 58.2 H, RDW Coeff of Tan 16.5 H, Plt Count 361, MPV 9.1, Immature Gran % (Auto) 0.900, Neut % (Auto) 74.1 H, Lymph % (Auto) 11.5 L, [place] % (Auto) 8.8, Eos % (Auto) 4.4, Baso % (Auto) 0.3, Absolute Neuts (auto) 5.0, Absolute Lymphs (auto) 0.78 L, Nucleated RBC % 0, PT 21.3 H, INR 1.9, Sodium 136, Potassium 4.2, Chloride 104, Carbon Dioxide 27.0, Anion Gap 5, BUN 9, Creatinine 0.92, Estim Creat Clear Calc 53.91, Est GFR (MDRD) Af Amer 77, Est GFR (MDRD) Non-Af 64, BUN/Creatinine Ratio 9.8 L, Glucose 98, Calcium 9.1, Phosphorus 4.2, Magnesium 1.8, Total Bilirubin 1.00, Direct Bilirubin 0.27, AST 34, ALT 43, Alkaline Phosphatase 133 H, Troponin I High Sens 147 H*, Total Protein 5.9 L, Albumin 2.4 L, Globulin 3.5, Albumin/Globulin Ratio 0.7 L, TSH 3.22 D/C Instructions Discharge Diet: No restrictions Weight Bearing Status: Full weight bearing Call your doctor if you observe: Fever of 101 or Higher Meaningful Use Info Meaningful Use Meaningful Use Diagnoses (Choose all that apply): None applicable Ischemic Stroke Statin Dosing Therapy Reference: STATIN DOSE THERAPY REFERENCE: * Patients > 75 years receive moderate or high dose statin therapy. * Patients 75 years or YOUNGER should receive HIGH intensity statin dose unless contraindicated. You will be required to document reason for non-treatment if statin daily dose does not meet guidelines. HIGH DOSE STATIN THERAPY DAILY Atorvastatin > than or = to 40 mg Rosuvastatin > than or = to 20 mg Amlodipine + Atorvastatin > than or = to 2.5/40 mg Ezetimibe + Simvastatin 10/80 mg Simvastatin 80mg Discharge Plan Admission Admit Date/Time: 07/24/23 14:28 Primary Reason for Your Visit: hypoxia, pleural effusions Attending Provider: Hussein Milian Primary Care Provider: Leonor Orellana NP Consulting Providers: Bhargav Ng Discharge Orders/Prescriptions Prescriptions: New furosemide 40 mg Tablet 40 mg PO BID Qty: 60 0RF amiodarone 200 mg Tablet 200 mg PO DAILY Qty: 0 0RF potassium chloride 10 mEq tablet extended release 20 meq PO BID Qty: 120 0RF ipratropium-albuterol 0.5 mg-3 mg(2.5 mg base)/3 mL Solution For Nebulization 3 ml inhalation Q6H.RT Qty: 0 0RF Continued atorvastatin 80 mg tablet 80 mg PO QHS Qty: 90 3RF duloxetine 20 mg capsule,delayed release(DR/EC) 20 mg PO DAILY Patient Comments: take 1 capsule by mouth once daily pantoprazole 40 mg tablet,delayed release (DR/EC) 40 mg PO QDAY albuterol sulfate 1.25 mg/3 mL solution for nebulization 1.25 mg INHALATION Q4H PRN (Reason: sob/wheezing) clopidogrel 75 mg tablet 75 mg PO DAILY tramadol 50 mg tablet 50 mg PO Q8H PRN metoprolol tartrate 50 mg tablet 50 mg PO TID folic acid 1 mg tablet 1 mg PO DAILY ascorbic acid (vitamin C) 500 mg tablet 1 g PO DAILY@1200 calcium carbonate [Antacid (calcium carbonate)] 200 mg calcium (500 mg) tablet,chewable 400 mg PO BID PRN (Reason: dyspepsia) ferrous sulfate [FeroSul] 325 mg (65 mg iron) tablet 325 mg PO DAILY@1200 melatonin 3 mg capsule 3 mg PO QHS PRN (Reason: sleep) Eliquis 5 mg tablet 5 mg PO BID Qty: 60 11RF Discontinued furosemide 40 mg tablet 40 mg PO DAILY Qty: 3 0RF amiodarone 200 mg tablet 200 mg PO Q12H Rx Instructions: BID X5D, THEN 1 TAB DAILY albuterol sulfate 90 mcg/actuation HFA aerosol inhaler 2 puff inhalation Q6H PRN PRN (Reason: wheezing) potassium chloride 10 mEq tablet,ER particles/crystals 20 meq PO DAILY Qty: 180 3RF Referrals / Follow Up: Leonor Orellana ARMHOLE SEWER, [facility]HO[facility] SEWER-C [Primary Care Provider] - Disposition Disposition (needs filled in before D/C Order can be placed): Inpatient Rehab Unit/Facility Charges/Coding Visit Charges Inpatient E&M: 80250 Disch Hosp >30min
--- NOTE | 2023-07-25 16:36 | NURSING ---
Report called to ARIADNA Jones at Inpatient Rehab at [phone].
--- NOTE | 2023-07-25 18:47 | CASEMGMT ---
Social Work This teletypewriter operator apprised by Kait MILAN CM regarding conversation Kait had with the patient and patient's daughter today. Daughter had much concern about the patient returning home at this point, feeling that patient needed a little bit more time of rehab and that patient's support system at home not equipped to take care of the level of care patient needs currently. Spoke with Dr. Milian who expresses recommendation for inpatient rehab level of care. Patient is status post CABG at [facility] within the last 1 to 2 weeks. This teletypewriter operator printed intermediate facility and inpatient rehab unit choice list from [facility] for patient's geographical region and insurance network. Lists include quality and star data. Met with patient, introducing to self and social work role. Patient shared recent history of medical needs and treatment over the last couple of weeks, including the recommendation from [place] for patient to come to [facility] for rehab. Patient reports on the day of discharge the provider indicated patient could go home if she wished, which patient decided that wanted to try things at home. Patient reports had 1 visit at home by [facility] health care, but felt that things at home were not going as well as expected. Patient reports also was very short of breath and using her CPAP machine for air. Patient discussed increased anxiety over the last couple of weeks. Much supportive listening and emotional support provided. Discussed that increased depression and anxiety can be common after heart related issues. Patient tearful during discussion, reporting worry about her who has had his own cardiac issues and that her is not equipped to take care of the patient and the patient's current care needs. Patient reports goal of rehabilitation, building up endurance, in order to go back home. Provided patient list generated from [facility]. Choices were made: [facility] rehab unit, [facility] transitional care unit, [facility]. Referral to Kimberly at [facility] rehabilitation unit. Kimberly also management coordinator for transitional care unit. Received message back from Kimberly that patient can be accepted to the inpatient rehab unit today. Updated provider and nursing staff. Met with patient to update. Patient expressed thanks. Call to patient's daughter and with patient's permission left voicemail about discharge plan and disposition today. Plan: [facility] inpatient rehabilitation. -JORGE Hamm, IN HOME AIDE *This note was generated with [employer] software. It may contain incorrect words, spelling, and punctuation that were not noted in review of the chart prior to signing*
== END 2023-07-25 16:20 ==
LOC: ED 14:29 → PCU 14:52
PROVIDERS: Internal Medicine; Admitting Provider Internal Medicine; Emergency Provider Emergency Medicine; PCP Nurse Practitioner Family; Visit Provider Internal Medicine
DX: J98.11 Atelectasis (principal); J96.20 Acute and chronic respiratory failure, unspecified whether with hypoxia or hypercapnia; I48.0 Paroxysmal atrial fibrillation; J90 Pleural effusion, not elsewhere classified; Z79.01 Long term (current) use of anticoagulants; G47.33 Obstructive sleep apnea (adult) (pediatric); Z79.02 Long term (current) use of antithrombotics/antiplatelets; I25.10 Atherosclerotic heart disease of native coronary artery without angina pectoris; I10 Essential (primary) hypertension; R53.81 Other malaise; E78.5 Hyperlipidemia, unspecified; Z95.1 Presence of aortocoronary bypass graft; F17.210 Nicotine dependence, cigarettes, uncomplicated; Z79.899 Other long term (current) drug therapy
CPT/HCPCS: 99285; 36415; 71275; 80048; 80053; 82248; 83735; 83880; 84100; 84443; 84484; 85025; 85610; 85730; 93005; 94640; 94660; 94668; 97162; 97166; 99252; J7040; J7050; Q9967; A4216; G0463; J0696; J1940; J2405

== ENCOUNTER 2023-07-25 16:59 | Inpatient (IN) | payer MEDICARE, OTHER, SELFPAY ==
[2017-12-28 12:03] VITALS: BMI 36.5
[2023-07-25 17:14] VITALS: BP 167/82; PULSE 94; RESP 16; TEMP 37; O2SAT 95; BMI 37.0
--- NOTE | 2023-07-25 18:32 | HP.PCM_ITS ---
[facility] - General General Date of Admission: 07/25/23 Date of Service: 07/25/23 Chief Complaint: Debility secondary to recent CABG and acute congestive heart failure with bilateral effusions. [facility] Narrative DOMI SNELL, is a 72-year-old F with a PMH of anxiety/depression, asthma, tobacco dependence, chronic renal failure stage II, obesity, coronary artery disease with history of PCI, carotid disease status post CEA, PAF, RLS, ERICKA, hypertension, hyperlipidemia, chronic back pain with presence of a spinal cord stimulator and osteoporosis who presented initially to the Ed at [facility] on 07/01/23 c/o chest pain. she was admitted to the hospitalist service and underwent cardiac cath on 07/04/23. The catheterization showed 40% ostial stenosis of the left main. There was severe disease with 90% stenosis involving the ostia of the LAD and a 99% occluded circumflex. There was 90% ostial stenosis of the ramus. The previous stent to the RCA was patent and the ostial RCA was 30% stenosed. She was transferred to [facility] for CABG and underwent CABG X 3 on 07/12/23. Post op course was complicated by acute blood loss anemia and at Dc the HGB was 7.9. She was discharged home on 07/20/23. On 07/24/23 she presented to the ED at [facility] c/o chest pain and SOB. Pulse ox was 96% on RA at rest but, she desaturated with exertion. A CTA of the chest was done and there was no evidence of central pulmonary embolism but it was a suboptimal evaluation. There were moderate bilateral pleural effusions, right greater than left with compressive atelectasis. Labs showed a normal white blood cell count of 7.5 and hemoglobin of 8.3. Potassium was low at 2.9. BNP was elevated to 6. She was admitted to the hospitalist service and started on ceftriaxone and azithromycin for suspected right middle lobe pneumonia. She was also started on aerosol treatments. She was discharged to the acute inpt rehab unit on 07/25/23 for 3 hours of therapy/strengthening prior to going home. She was not on antibiotics at the time of DC and Lasix had been continued but, increased to 40 mg BID. She is c/o BL muscle spasms in her shoulders that keep her awake at night. Follows with Dr. Louis for ERICKA since 2019. Prior to that she was following with a pulmonary provider in [place]. And polysomnogram completed in February 2017 at [facility] revealed an overall apnea-hypopnea index of 16 events per hour which increased in the supine position to 25 events per hour. She was also noted to have severe periodic limb movement disorder. Has not had a sleep study since 2017. She is compliant with CPAP. His note from 2020 states that pulmonary function studies were grossly within normal limits with the exception of a robust mid flow bronchodilator response possibly indicative of asthma. She has a nebulizer at home which she uses as needed. The pressure on her CPAP unit is 11 cm of water. Last sleep study was several years ago. She tells me that she has asthma. She has CHAHAL and orthopnea. She is c/o dry mouth. Quit smoking in February 2017 but had a 73-tnyv-ddba history prior to that. ON LICENSE OF [facility] Medical History (Updated 07/27/23 @ 11:[address] 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 Paroxysmal atrial fibrillation Nicotine dependence, cigarettes, in remission Fibroadenoma RLS (restless legs syndrome) Carotid artery disease ERICKA (obstructive sleep apnea) Atherosclerotic heart disease [place] coronary artery w/angina pectoris intermttent type 2 heart block GERD (gastroesophageal reflux disease) Obesity Hypertension Hyperlipidemia Home Medications ?Medication ?Instructions ?Recorded ?Last Taken ?Type atorvastatin 80 mg tablet 80 mg PO QHS cholesterol #90 tabs 01/11/18 07/23/23 Rx duloxetine 20 mg capsule,delayed 20 mg PO DAILY mood 04/27/22 07/23/23 History release apixaban 5 mg tablet (Eliquis) 5 mg PO BID blood thinner #60 tabs 01/25/23 07/24/23 Rx albuterol sulfate 1.25 mg/3 mL 1.25 mg inhalation Q4H PRN 06/16/23 Unknown History solution for nebulization sob/wheezing pantoprazole 40 mg tablet,delayed 40 mg PO QDAY reflux 06/16/23 07/23/23 History release ascorbic acid (vitamin C) 500 mg 1 g PO DAILY@1200 vitamin 07/24/23 07/23/23 History tablet calcium carbonate (Antacid 400 mg PO BID PRN dyspepsia 07/24/23 Unknown History (calcium carbonate)) clopidogrel 75 mg tablet 75 mg PO DAILY anti platelet 07/24/23 07/23/23 History ferrous sulfate 325 mg (65 mg 325 mg PO DAILY@1200 vitamin 07/24/23 07/23/23 History iron) tablet (FeroSul) folic acid 1 mg tablet 1 mg PO DAILY vitamin 07/24/23 Unknown History melatonin 3 mg capsule 3 mg PO QHS PRN sleep 07/24/23 Unknown History metoprolol tartrate 50 mg tablet 50 mg PO TID blood pressure 07/24/23 07/24/23 History tramadol 50 mg tablet 50 mg PO Q8H PRN pain 07/24/23 Unknown History amiodarone 200 mg tablet 200 mg PO DAILY heart #0 tabs 07/25/23 Unknown Rx furosemide 40 mg tablet 40 mg PO BID diuretic #60 tabs 07/25/23 Unknown Rx ipratropium 0.5 mg-albuterol 3 mg 3 ml inhalation Q6H.RT wheezing #0 07/25/23 Unknown Rx (2.5 mg base)/3 mL nebulization mL soln potassium chloride 10 mEq 20 meq (2 x 10 mEq) PO BID supp 07/25/23 Unknown Rx tablet,extended release #120 tabs Allergy/AdvReac Type Severity Reaction Status Date / Time doxycycline Allergy Unknown Verified 07/24/23 08:43 metoprolol AdvReac intermittent Verified 07/24/23 08:43 heart block oxycodone AdvReac vomiting Verified 07/24/23 08:43 Family History Brother CAD (coronary artery disease) CABG Mother CAD (coronary artery disease) Diabetes Sister , Age 13 Myocarditis Cancer Sister Cancer Other Dyspnea Fatigue Surgical History (Updated 07/27/23 @ 11:[address] Marylin Pugh DO) S/P CABG x 3 S/P insertion of spinal cord stimulator History of left heart catheterization (09/05/19) History of coronary artery stent placement (07/12/18) H/O breast biopsy History of hysterectomy Hx of cholecystectomy H/O carotid endarterectomy (~09/05/12) Social History household members: spouse Smoking Status: Current every day smoker tobacco type: cigarettes Tobacco: How many years used: 40 how long ago did patient quit smoking: Had previously quit in 2018 but started again, currently smoking 1 pk/wk. second hand exposure: Yes alcohol intake: never substance use type: does not use caffeine: Yes Type: carbonated beverages Number of servings: 2 ROS Constitutional Constitutional: Reports fatigue and weakness; Denies anorexia, change in weight, chills, fever(s) or night sweats Eyes Eyes: Denies blurry vision, change in vision, eye pain or loss of vision ENT HEENT: Denies abnormal hearing, dysphagia, headache(s), hearing loss, nasal congestion or sore throat Cardiovascular Cardiovascular: Reports chest pain, dyspnea at rest, dyspnea on exertion, edema, orthopnea and paroxysmal nocturnal dyspnea; Denies lightheadedness, palpitations or syncope Respiratory/Chest Respiratory/Chest: Reports dyspnea, shortness of breath at rest and shortness of breath with exertion; Denies cough or wheezing Gastrointestinal Gastrointestinal: Reports nausea; Denies abdominal pain, constipation, diarrhea, dyspepsia, hematemesis, hematochezia or vomiting Genitourinary Genitourinary: Denies dysuria, hematuria, nocturia, urinary frequency, urinary hesitancy, urinary incontinence or urinary urgency Musculoskeletal Musculoskeletal: Reports muscle weakness and myalgias; Denies back pain, joint pain, joint swelling or neck pain Integumentary Integumentary: Reports dry skin; Denies jaundice Neurologic Neurologic: Reports dizziness; Denies confusion, disequilibrium, focal weakness, headache(s), paresthesias, seizures or tremor(s) Psychiatric Psychiatric: Denies anxiety, depression, homicidal ideation or suicidal ideation Endocrine Endocrinology: Denies change in body appearance, polydipsia or polyuria Hematologic/Lymphatic Hematologic/Lymphatic: Denies easy bleeding, easy bruising or lymphadenopathy Allergic/Immunologic Allergic/Immunologic: Denies rhinitis, eczemia or asthma Vital Signs Vital Signs Vital Signs: 07/25/23 17:14 Temperature 98.6 F Temperature Source Oral Pulse Rate 94 Respiratory Rate 16 Blood Pressure 167/82 H Blood Pressure Mean 110 Blood Pressure Source Monitor Blood Pressure Position Semi-Fowlers Blood Pressure Location Left Arm Pulse Ox 95 Oxygen Delivery Method Nasal Cannula Oxygen Flow Rate (L/min) 2 Weight Weight: 190 lb Body Mass Index (BMI) 37.0 Physical Exam Const alert and oriented x3 General Appearance: cooperative HEENT head/scalp atraumatic HEENT Narrative: Very dry mucous membranes Eyes PERRL, EOMs intact bilaterally, conjunctivae normal and no scleral icterus Eyes Narrative: No discharge from the eyes Neck Neck Narrative: Decreased range of motion. Severe spasm in the bilateral trapezius muscles at the trapezius ridge bilaterally. Chest Chest: symmetrical chest wall rise Resp Resp Narrative: Breath sounds are markedly diminished in the right base and in the left base she has fine crackles. No wheezing. Not coughing with deep breath. Not tachypneic. No conversational dyspnea. Cardio regular rate, regular rhythm, S1 normal heart sound, S2 normal heart sound, no murmurs, no rub and no gallops GI normal to inspection, nondistended, normoactive bowel sounds, soft to palpation and non-tender GI Narrative: No guarding with palpation no CVA tenderness Extremity no calf tenderness and no pedal edema Extremity Narrative: She has extensive bruising of the medial left thigh and calf secondary to vein stripping for CABG. Skin Wound Narrative: The chest incision is healing with no dehiscence. There is no gina-incisional erythema and no purulent discharge. 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: (10) Tobacco dependence: (11) Hypertension: QUALIFIERS: Hypertension type: essential hypertension Qualified Code(s): I10 - Essential (primary) hypertension (12) Hyperlipidemia: QUALIFIERS: Hyperlipidemia type: pure hypercholesterolemia Q ualified Code(s): E78.00 - Pure hypercholesterolemia, unspecified; E78.0 - Pure hypercholesterolemia (13) Obesity: QUALIFIERS: Obesity type: due to excess calories Obesity classification: adult class 2 (BMI 35 - 39.9) Serious obesity comorbidity presence: with serious comorbidity Body mass index: BMI 36.0-36.9 Qualified Code(s): E66.01 - Morbid (severe) obesity due to excess calories; Z68.36 - Body mass index [BMI] 36.0-36.9, adult (14) Muscle spasm: PLAN: Plan PLAN PT for gait stability OT for ADL's ST for evaluation Analgesics as needed Bowel protocol Fall precautions Assess for Anxiety/Depression GI prophylaxis -pantoprazole DVT prophylaxis with Eliquis Follow up with cardiothoracic surgery, cardiology and PCP following DC from [facility] AM lab including CMP, CBC, Mag and Phos ordered. Will also order a repeat BNP Zanaflex 4 mg nightly at 9 PM. Apply lidocaine patches to each trapezius muscle at 9 PM nightly and remove at 9 AM Add magnesium chloride 128 mg daily to keep the magnesium at approximately 2. Adjust potassium supplement as needed to keep the potassium around 4. Add vitamin C 1000 mg daily to be given with ferrous sulfate. CPAP at 11 cm anytime she is sleeping. I asked her Jt to bring in her CPAP unit to make sure that it is functioning properly. Domi seems to think that the hospital unit works better for her than the 1 she has at home. Change DuoNeb aerosols to every 6 hours as needed for wheezing PA and LAT CXR in the AM - I think she may benefit from thoracentesis. Will place Eliquis on hold. Consider adding Buspar to the current drug regimen for better control of anxiety if the increased anxiety persists after breathing improves. Charges/Coding Visit Charges Inpatient E&M: 07302 Init Hosp L3
[2023-07-25 19:00] VITALS: O2SAT 96
[2023-07-25 19:52] VITALS: BP 130/73; PULSE 74; RESP 18; TEMP 36.8; O2SAT 94
[2023-07-25] MEDS: tiZANidine HCl 2 MG Tablet 4 MG PO (19:55)
[2023-07-25] MEDS: Lidocaine 5% Patch 2 PATCH TOPICAL (19:56)
[2023-07-25] MEDS: Potassium Chloride Oral Tablet 20 MEQ PO (19:57)
[2023-07-25] MEDS: Senna/Docusate Sodium 1 Tablet 2 TABLET PO (19:57)
[2023-07-25 19:58] VITALS: BP 130/73; PULSE 74
[2023-07-25] MEDS: Metoprolol Tartrate 50 MG Tablet PO (19:58)
[2023-07-25] MEDS: Atorvastatin Calcium 80 MG Tablet PO (19:58)
[2023-07-25 20:20] VITALS: PULSE 71; RESP 28; O2SAT 97
[2023-07-25] MEDS: traMADol 50 MG Tablet PO (20:31)
--- NOTE | 2023-07-25 20:36 | CPS ---
[2020] Pt. wears CPAP 11 at home. Pt. asked if I could turn the pressure up a bit to keep her more comfortable. CPAP 14 is where pt. feels most comfort. She's tolerating well at this time.
[2023-07-25 23:15] VITALS: PULSE 57; RESP 17; O2SAT 98
[2023-07-26] VITALS (14 sets, daily range): BP systolic 81–148; BP diastolic 36–65; PULSE 54–66; RESP 16–20; TEMP 36.7–36.9; O2SAT 95–98; BMI 37.5
[2023-07-26] MEDS: Metoprolol Tartrate 50 MG Tablet PO ×2 (05:28→21:36)
[2023-07-26 05:40] LABS: Hematocrit 25.4 % (37-47); Hemoglobin 7.9 g/dL (12.0-15.0); Mean Corp Hgb Conc 31.1 g/dL (32-36); Mean Corpuscular Hgb 31.3 pg (27.0-32.0); Mean Corpuscular Volume 100.8 fL (81-99); Mean Platelet Vol. 8.8 fl (6.2-12.0); Platelet Count 308 K/mm3 (150-450); RBC Distribution Width CV 16.2 % (11.6-14.6); RBC Distribution Width SD 58.6 fl (35.1-43.9); Red Blood Count 2.52 M/mm3 (4.2-5.4); White Blood Count 6.3 K/mm3 (4.4-11.0)
[2023-07-26 06:50] LABS: ALB/GLOB Ratio 0.7 RATIO (0.9-2.4); AST(SGOT) 19 U/L (15-37); Alanine Aminotransfer ALT/SGPT 31 U/L (13-56); Albumin, Serum 2.3 g/dL (3.2-5.0); Alkaline Phosphatase 126 U/L (45-117); Anion Gap 6 (5-15); BUN 16 mg/dL (7-18); BUN/Creat Ratio 17.2 RATIO (10-20); Calcium,Total 9.5 mg/dL (8.5-10.1); Chloride 104 mmol/L (98-107); Creatinine, Serum 0.93 mg/dL (0.55-1.02); EST Glomerular Filtration Rate 63 mL/min (>60); Est Glom Filt Rate - Afr Amer 76 mL/min (>60); Estimated Creatinine Clearance 53.67 ml/min; Globulin 3.4 g/dL (2.2-4.2); Glucose 103 mg/dL (74-106); Phosphorus 4.7 mg/dL (2.5-4.9); Potassium 4.1 mmol/L (3.5-5.1); Protein, Total 5.7 g/dL (6.4-8.2); Sodium Level 136 mmol/L (136-145)
[2023-07-26] MEDS: Magnesium Chloride 64 MG Delay Rel.Tablet 128 MG PO (07:59)
[2023-07-26] MEDS: DULoxetine Hcl 20 MG Capsule PO (07:59)
[2023-07-26] MEDS: Folic Acid 1 MG Tablet PO (07:59)
[2023-07-26] MEDS: tiZANidine HCl 2 MG Tablet 4 MG PO (07:59)
[2023-07-26] MEDS: Pantoprazole Sodium 40 MG Tablet PO (07:59)
[2023-07-26] MEDS: Furosemide 40 MG Tablet PO (07:59)
[2023-07-26] MEDS: Calcium Carbonate 500 MG Tablet PO (07:59)
[2023-07-26] MEDS: Clopidogrel Bisulfate 75 MG Tablet PO (08:00)
[2023-07-26] MEDS: Potassium Chloride Oral Tablet 20 MEQ PO ×2 (08:00→21:38)
[2023-07-26] MEDS: Amiodarone 200 MG Tablet PO (08:00)
[2023-07-26] MEDS: Senna/Docusate Sodium 1 Tablet 2 TABLET PO (08:00)
[2023-07-26 08:09] LABS: BNP,B-Type NATRIURETIC PEPTIDE 318.2 pg/mL (0-100)
--- NOTE | 2023-07-26 09:00 | RAD_ITS ---
STUDY: X-RAY CHEST REASON FOR EXAM: Female, 72 years old. BL pleural effusions TECHNIQUE: PA and lateral views of the chest. COMPARISON: Comparison is made with prior study dated July 01, [address] scan of thorax dated July 24, 2023. FINDINGS: Bilateral pleural effusions right greater than left with bibasilar atelectasis and/or infiltrate. Mild degree of passive congestion and CHF. Sternal cerclage wires are present from a prior sternotomy. The patient is status post mitral valve replacement. Spinal cord stimulator device is seen. Normal mediastinum and natanael. Normal visualized pulmonary arteries. Normal visualized aortic arch and descending thoracic aorta. Normal visualized thoracic spine. Normal visualized ribs, clavicles, and shoulders. There is no demonstrated abnormality of the visualized soft tissue structures of the upper abdomen. RAD/Chest PA and Lateral IMPRESSION: Bilateral pleural effusions right greater than left with bibasilar infiltration and/or atelectasis worse on the right side. Mild degree of CHF. Electronically Signed: Casey Handy MD at 9:28 EDT ,
--- NOTE | 2023-07-26 09:53 | PCM.RU.PYE ---
Admission Information Primary Diagnosis:: DEBILITY DUE TO ACUTE CHF/HYPOXEMIA/RECENT CABG Status Changes from Prescreening?: No changes Identified and Medical Actual Problem List:: Pain, ALteration in Cmfrt, Alteration in Sleep, Mobility Impaired, Self Care Deficit, Alteration/ Air Exchange and Alteration-Leisure Activ. Potential Problem List:: DVT, Bleeding, Infection, UTI, Aspiration, Falls, Skin Integrity and Depression Risk of Complications DVT: TANO Hose and - (On Eliquis) Bleeding: Monitor Lab Values, Nursing to Teach Precautions for anti-coagulation therapy., Wound, if applicable, to be assessed every shift. and Stroke patients assessed for lethargy or change in status. Infection: Clinical Staff to Monitor for S/S of infection: and S/S of infection include fever, redness, warmth, etc. Urinary Tract Infection: Monitor for frequency, burning, discomfort, or incontinence. and Nursing will obtain urine sample for urinalysis and C&S when ordered. Aspiration: Clinical staff will monitor for coughing, drooling, congestion., Speech will evaluate swallowing and dsyphasia. and Nursing will monitor patient swallowing during meals. Falls: Patient will be evaluated for Fall Precautions and Patient will be placed on Fall Precautions as indicated per protocol. Skin Breakdown: Nursing will assess skin daily using assessment tool. and Nursing will place on Skin Breakdown Precautions as indicated. Pain: Clinical staff will assess patient's pain level per protocol., Medications will be given, if needed, and the pain level reassessed. and Other methods: Massage, distraction, decrease stimulus, etc. used PRN. Plan of Care Patient requires physician specializing in physical medicine and rehab oversight to provide close medical supervision of rehab issues including: Pain Management, Sleep Problems, Bowel and Bladder, Medical and co-morbidity Management, DVT prophylaxis, Rehabilitation Leadership and Coordination of treatment team Patient needs Physical Therapy: For a minimum of 1 hour and At least 5 out of 7 days Patient needs Physical Therapy to improve:: Mobility, Strengthening, Transfers, Stretching, ROM, Endurance, Stairs, Gait and Balance Patient needs Occupational Therapy: For a minimum of 1 hour and At least 5 out of 7 days Patient needs Occupational Therapy to improve ADL's incl.: Eating, Grooming, Bathing, Dressing, Toileting, Toilet transfers, Community Reintegration, Higher functioning activities, Household tasks, Adaptive Equipment, Splinting and Other activities as determined Patient requires 24/ Rehabilitation Nursing for: Pain Issues, Identifying and preventing risk factors, Monitoring and reporting current medical conditions, Assisting with ambulation, transfer, and all ADL's, Teaching patients about disease process and medications, Family teaching, Providing safe environment, Bowel and Bladder Issues, Skin integrity and Medication Management Patient needs Chief Writer/ Case Management for: Discharge Planning, Arranging Home Equipment or Services and Family Interventions Patient needs Dietary and Nutrition Services for: Adequate Nutrition, Nutritional Supplements and Nutritional Education Goals Goals Patient will remain: free from falls Patient will perform eating at: MOD I level of assist. Patient will perform bed mobility at: MOD I level of assist. Patient will complete transfers from bed to chair at: MOD I level of assist. Patient will ambulate: - (500 feet with least restrictive device at mod I on various surfaces) Patient will complete upper body dressing at: MOD I level of assist. Patient will complete lower body dressing at: MOD I level of assist. (With adaptive equipment as needed for increased independence with self-care.) Patient will complete toilet transfer at: MOD I level of assist. Patient will complete toileting at: MOD I level of assist. Patient will perform bathing at: MOD I level of assist. Patient will perform Tub/Shower transfer at: - (Supervision for the initial 1 to 2 weeks following discharge from rehab) Patient will complete grooming at: MOD I level of assist. Patient will complete home management skills at: MOD I level of assist. Patient will achieve: - (7 steps with 1 handrail at standby assist to allow access to her basement. She will also complete 2 platform steps with a wheeled walker at contact-guard assist to allow entry into her front entrance.) Patient will have pain level of: of 3 or less Patient's skin will: remain intact Patient will receive: adequate nutrition. Discharge Planning Pt Prognosis for Sig. Practical Improv. w/in Reasonable Time: Good Estimated Length of stay (days): 21 Anticipated D/C Destination: Home with Home Health Was Preadmission Assessment Accurate?: Yes
[2023-07-26] MEDS: Furosemide 40 MG/4 ML Vial IV (09:55)
--- NOTE | 2023-07-26 09:56 | PCM.PROGNOTE ---
Subjective Subjective Afebrile VSS -since arrival on rehab her blood pressure has ranged from 124/52 to 167/82. Heart rate has ranged from 54-94. Maintaining appropriate oxygen saturation on RA Oral intake - FOOD good FLUIDS good - STILL IN + FLUID BALANCE DESPITE BID LASIX. Fluid balance since arrival on rehab is +620. Discussed with nursing - no problems that need addressed Reviewed the THERAPY notes Medication list reviewed. Domi continues to complain of shortness of breath when lying down and with exertion. She feels like her chest is heavy. There is no radiation of the pain into her arms. She denies palpitations, lightheadedness, nausea/vomiting, abdominal pain, dysuria and calf tenderness. All lab drawn this morning was personally reviewed. The white blood cell count is normal at 6.3. Hemoglobin is stable at 7.9. MCV is elevated at 1 108 and platelets are within normal limits. Sodium is 136 and the potassium is 4.1. Serum bicarb is 26. The BUN is 16 with a stable creatinine at 0.93. Magnesium is 2.0 and the phosphorus is normal. LFTs are unremarkable. BNP is elevated at 318.2. Albumin is low at 2.3. Objective Data Objective Data Vital Signs: Vital Signs Temp Pulse Resp BP Pulse Ox O2 Del Method O2 Flow Rate 98.4 F 58 L 16 124/52 H 96 Room Air 2 07/26/23 07:46 07/26/23 07:46 07/26/23 07:46 07/26/23 07:46 07/26/23 07:46 07/26/23 07:46 07/26/23 06:45 FiO2 28 07/26/23 03:16 Oxygen Flow Rate (L/min) 2 Oxygen Delivery Method Room Air Weight: 192 lb 3.889 oz Body Mass Index (BMI) 37.5 Intake & Output: Intake and Output for Last 24 Hours 07/24/23 07/25/23 07/26/23 23:59 23:59 23:59 Intake Total 240 / 640 1480 / 1480 Output Total 300 / 600 800 / 800 Balance -60 / 40 680 / 680 Lab / Micro Data 07/26/23 05:23 07/27/23 04:58 Labs: Laboratory Results - last 24 hr 07/26/23 05:23: WBC 6.3, RBC 2.52 L, Hgb 7.9 L, Hct 25.4 L, MCV 100.8 H, MCH 31.3, MCHC 31.1 L, RDW Std Deviation 58.6 H, RDW Coeff of Tan 16.2 H, Plt Count 308, MPV 8.8, Sodium 136, Potassium 4.1, Chloride 104, Carbon Dioxide 26.0, Anion Gap 6, BUN 16, Creatinine 0.93, Estim Creat Clear Calc 53.67, Est GFR (MDRD) Af Amer 76, Est GFR (MDRD) Non-Af 63, BUN/Creatinine Ratio 17.2, Glucose 103, Calcium 9.5, Phosphorus 4.7, Magnesium 2.0, Total Bilirubin 0.70, AST 19, ALT 31, Alkaline Phosphatase 126 H, B-Natriuretic Peptide 318.2 H, Total Protein 5.7 L, Albumin 2.3 L, Globulin 3.4, Albumin/Globulin Ratio 0.7 L Radiography Diagnostic Testing: Radiology Impression Chest X-Ray 07/26/23 09:00 IMPRESSION: Bilateral pleural effusions right greater than left with bibasilar infiltration and/or atelectasis worse on the right side. Mild degree of CHF. Electronically Signed: Casey Handy MD at 9:28 EDT , Physical Exam Const alert and oriented x3 General Appearance: cooperative Resp Resp Narrative: Breath sounds are markedly diminished in the right base and in the left base she has fine crackles. No wheezing. Not coughing with deep breath. Not tachypneic. No conversational dyspnea. Cardio regular rate, regular rhythm, no murmurs, no rub and no gallops GI normal to inspection, nondistended, normoactive bowel sounds, soft to palpation and non-tender GI Narrative: No guarding with palpation Extremity no calf tenderness and no pedal edema Psych Mood & Affect: anxious Assessment & Plan Assessment/Plan (1) Debility: (2) S/P CABG x 3: (3) Acute congestive heart failure: QUALIFIERS: Heart failure type: combined systolic and diastolic Qualified Code(s): I50.41 - Acute combined systolic (congestive) and diastolic (congestive) heart failure (4) Pleural effusion: (5) Atelectasis of both lungs: (6) Generalized weakness: (7) Acute blood loss anemia: (8) Paroxysmal atrial fibrillation: (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: (10) Tobacco dependence: (11) Hypertension: QUALIFIERS: Hypertension type: essential hypertension Qualified Code(s): I10 - Essential (primary) hypertension (12) Hyperlipidemia: QUALIFIERS: Hyperlipidemia type: pure hypercholesterolemia Qualified Code(s): E78.00 - Pure hypercholesterolemia, unspecified; E78.0 - Pure hypercholesterolemia (13) Obesity: QUALIFIERS: Obesity type: due to excess calories Obesity classification: adult class 2 (BMI 35 - 39.9) Serious obesity comorbidity presence: with serious comorbidity Body mass index: BMI 36.0-36.9 Qualified Code(s): E66.01 - Morbid (severe) obesity due to excess calories; Z68.36 - Body mass index [BMI] 36.0-36.9, adult (14) Muscle spasm: PLAN: Plan 1. Continue therapy 2. Patient to have thoracentesis today. Will restart Eliquis in the AM. 3. Lasix 40 mg IV twice daily x 3 doses 4. Insert Vick catheter for the next 24 to 48 hours for accurate I&O 5. Start BuSpar 5 mg twice daily for anxiety unrelieved with duloxetine Charges/Coding Visit Charges Inpatient E&M: 03915 [facility] Hosp L1
[2023-07-26] MEDS: Ascorbic Acid 500 MG Tablet 1000 MG PO (11:58)
[2023-07-26] MEDS: busPIRone 5 MG Tablet PO ×2 (11:58→21:36)
[2023-07-26] MEDS: Ferrous Sulfate 325 MG Tablet PO (11:58)
[2023-07-26] MEDS: Lidocaine 2% (20 ml mdv) 20 ML Vial INFILT (14:26)
--- NOTE | 2023-07-26 14:35 | RAD_ITS ---
STUDY: X-RAY CHEST REASON FOR EXAM: Female, 72 years old. Post thoracentesis TECHNIQUE: AP inspiration and expiration views. COMPARISON: Comparison is made with prior study of earlier today. FINDINGS: The patient is status post right thoracentesis. There is no evidence of pneumothorax. Mild residual pleural-parenchymal changes persist at the right lung base. RAD/Chest Insp/Exp 2 View IMPRESSION: Status post right thoracentesis. There is no evidence of pneumothorax. Electronically Signed: Casey Handy MD at 14:50 EDT ,
--- NOTE | 2023-07-26 14:45 | PRO.PCM_ITS ---
Procedure Report Date of Procedure: 07/26/23 Assessment & Plan Assessment/Plan (1) Pleural effusion: PLAN: PROCEDURE: Ultrasound Guided Thoracentesis ORDERING PROVIDER: Dr. Pugh INDICATION: Female, 72 years old. Right pleural effusion. PROVIDER: MARIA T [place] PROCEDURE: The risks, benefits, and alternatives to the procedure were explained to the patient. The specific risks of bleeding, infection, and pneumothorax requiring chest tube insertion were discussed and accepted. Written informed consent was obtained. The patient was placed in the sitting, upright position. Ultrasonographic evaluation of the bilateral lower pleural spaces was carried out. An adequate pocket was identified in the right lower pleural space.The overlying skin was prepped and draped in sterile fashion. 2% lidocaine was administered subcutaneously for local anesthesia. Under ultrasound guidance, a 5-Monegasque thoracentesis needle/catheter system was advanced into the right posterior lower pleural fluid collection. 1040 ml of clear lani colored fluid was drained. The catheter was removed, and a sterile dressing was applied. The patient tolerated the procedure well. A chest x-ray was ordered. IMPRESSION: Successful ultrasound-guided thoracentesis of right pleural effusion. Procedures Radiology Radiology US Procedures: 00573 Thoracentesis
--- NOTE | 2023-07-26 20:42 | CPS ---
set up pt own cpap machine-added water
[2023-07-26] MEDS: traMADol 50 MG Tablet PO (21:35)
[2023-07-26] MEDS: Lidocaine 5% Patch 2 PATCH TOPICAL (21:35)
[2023-07-26] MEDS: MELATONIN 3 MG TABLET 5 MG PO (21:35)
[2023-07-26] MEDS: Atorvastatin Calcium 80 MG Tablet PO (21:38)
[2023-07-26] MEDS: 0.9% Saline Lock 10 ML Syringe IV (21:43)
[2023-07-27] VITALS (7 sets, daily range): BP systolic 114–146; BP diastolic 51–60; PULSE 63–68; RESP 16–18; TEMP 36.7–37.2; O2SAT 95–98; BMI 37.3
[2023-07-27] MEDS: Metoprolol Tartrate 50 MG Tablet PO ×3 (05:18→21:09)
[2023-07-27 06:01] LABS: Anion Gap 4 (5-15); BUN 17 mg/dL (7-18); Calcium,Total 9.5 mg/dL (8.5-10.1); Chloride 104 mmol/L (98-107); Creatinine, Serum 0.81 mg/dL (0.55-1.02); EST Glomerular Filtration Rate 74 mL/min (>60); Est Glom Filt Rate - Afr Amer 90 mL/min (>60); Estimated Creatinine Clearance 61.47 ml/min; Glucose 97 mg/dL (74-106); Potassium 3.9 mmol/L (3.5-5.1); Sodium Level 135 mmol/L (136-145)
[2023-07-27] MEDS: Calcium Carbonate 500 MG Tablet PO (07:51)
[2023-07-27] MEDS: Magnesium Chloride 64 MG Delay Rel.Tablet 128 MG PO (07:51)
[2023-07-27] MEDS: Clopidogrel Bisulfate 75 MG Tablet PO (07:51)
[2023-07-27] MEDS: Pantoprazole Sodium 40 MG Tablet PO ×2 (07:51→21:06)
[2023-07-27] MEDS: Potassium Chloride Oral Tablet 20 MEQ PO ×2 (07:51→21:07)
[2023-07-27] MEDS: Amiodarone 200 MG Tablet PO (07:52)
[2023-07-27] MEDS: tiZANidine HCl 2 MG Tablet 4 MG PO (07:52)
[2023-07-27] MEDS: DULoxetine Hcl 20 MG Capsule PO (07:52)
[2023-07-27] MEDS: Folic Acid 1 MG Tablet PO (07:53)
[2023-07-27] MEDS: busPIRone 5 MG Tablet PO ×2 (07:53→21:07)
[2023-07-27] MEDS: traMADol 50 MG Tablet PO ×2 (08:01→21:19)
--- NOTE | 2023-07-27 08:10 | CPS ---
Pt using own Pap machine so Continuous P-ox dc'd.
[2023-07-27] MEDS: Furosemide 40 MG/4 ML Vial IV ×2 (10:05→17:14)
[2023-07-27] MEDS: 0.9% Saline Lock 10 ML Syringe IV ×3 (10:05→21:05)
--- NOTE | 2023-07-27 11:18 | PN_ITS ---
Subjective Subjective Afebrile VSS - Maintaining appropriate oxygen saturation on RA Oral intake - FOOD good FLUIDS she had 2000 cc of urine output yesterday with Lasix 40 mg x 1. Fluid balance on 07/26/2023 was -1260. Discussed with nursing - no problems that need addressed Reviewed the THERAPY notes Medication list reviewed. Has not requested an aerosol since admission to rehab. All lab drawn this morning was personally reviewed. Sodium is 135 today and the potassium is 3.9. BUN is 17 and the creatinine is actually improved with thoracentesis/diuresis and is 0.81 today, down from 0.93 yesterday. A total of 1040 cc of clear lani-colored fluid was drained during the thoracentesis yesterday. Patient tolerated procedure well. The postprocedure film showed marked improvement in the right pleural effusion with no pneumothorax. Left base remains hazy. Slept much better last night. She is not c/o pain in the traps today. She has occasional nausea but, no vomiting. SOB is much improved. Has not tried the Biotene yet but, she continues to c/o dry mouth. No lightheadedness. Denies CP, palpitations, abd pain, dysuria and calf pain. She had a colonoscopy about [address] Alvarez and had polyps removed[address] She was to go back in 2 years which she plans on doing after she recovers from recent surgery. She denies heartburn. She had a cough after the thoracentesis yesterday and had some clear/yellow sputum but, no coughing today. She has been using the IS. Cough is more likely than not due to re-expansion of the R lung following thoracentesis. She tells me that she is not feeling anxious today. Objective Data Objective Data Vital Signs: Vital Signs Temp Pulse Resp BP Pulse Ox O2 Del Method O2 Flow Rate 99 F 67 18 129/51 H 97 Nasal Cannula 1 07/27/23 07:32 07/27/23 07:32 07/27/23 07:32 07/27/23 07:32 07/27/23 08:10 07/27/23 09:28 07/27/23 09:29 FiO2 28 07/26/23 03:16 Oxygen Flow Rate (L/min) 1 Oxygen Delivery Method Nasal Cannula Weight: 191 lb 5.78 oz Body Mass Index (BMI) 37.3 Intake & Output: Intake and Output for Last 24 Hours 07/25/23 07/26/23 07/27/23 23:59 23:59 23:59 Intake Total 240 / 640 1780 / 1980 810 / 810 Output Total 300 / 600 3040 / 3190 650 / 650 Balance -60 / 40 -1260 / -1210 160 / 160 Lab / Micro Data 07/26/23 05:23 07/27/23 04:58 Labs: Laboratory Results - last 24 hr 07/27/23 04:58: Sodium 135 L, Potassium 3.9, Chloride 104, Carbon Dioxide 27.0, Anion Gap 4 L, BUN 17, Creatinine 0.81, Estim Creat Clear Calc 61.47, Est GFR (MDRD) Af Amer 90, Est GFR (MDRD) Non-Af 74, BUN/Creatinine Ratio 21.0 H, Glucose 97, Calcium 9.5 Micro: Microbiology 07/26/23 18:50 Stool Stool Occult Blood (AMY) - Final Occult Blood Positive Radiography Diagnostic Testing: Radiology Impression Chest X-Ray 07/26/23 14:35 IMPRESSION: Status post right thoracentesis. There is no evidence of pneumothorax. Electronically Signed: Casey Handy MD at 14:50 EDT , Physical Exam Const alert, oriented x3 and no apparent distress Constitutional Narrative: pale General Appearance: cooperative HEENT head/scalp atraumatic Eyes PERRL, EOMs intact bilaterally, conjunctivae normal and no scleral icterus Eyes Narrative: No discharge from the eyes Neck Neck Narrative: Decreased range of motion. Severe spasm in the bilateral trapezius muscles at the trapezius ridge bilaterally. Chest Chest: symmetrical chest wall rise Resp Resp Narrative: Much better air exchange in the R lung today. She has coarse crackles 2[address] the R posterior lung chan. Fine crackles in the left base. No wheezing. Not tachypneic. No conversational dyspnea. Cardio regular rate, regular rhythm and no gallops Cardio Narrative: No ectopy GI normal to inspection, nondistended, normoactive bowel sounds, soft to palpation and non-tender GI Narrative: No guarding with palpation no CVA tenderness Extremity no calf tenderness Extremity Narrative: She has extensive bruising of the medial left thigh and calf secondary to vein stripping for CABG. General Extremity: Negative for edema Skin Wound Narrative: The sternal incision is healing well with no gina-incisional erythema, no dehiscence and no discharge. The puncture wounds in the upper abdomen are also healing. They are scabbed over but have no erythema or increased warmth to touch surrounding the sites. There is no discharge. Neuro CN's II-XII intact bilaterally and no focal motor deficits Motor Exam: general weakness Psych mental status grossly normal, cooperative, speech normal, denies homicidal ideation and denies suicidal ideation Appearance: grossly normal Activity / Motor Behavior: appropriate eye contact Mood & Affect: anxious Assessment & Plan Assessment/Plan (1) Debility: (2) S/P CABG x 3: (3) Acute congestive heart failure: QUALIFIERS: Heart failure type: combined systolic and diastolic Q ualified Code(s): I50.41 - Acute combined systolic (congestive) and diastolic (congestive) heart failure (4) Pleural effusion: (5) Atelectasis of both lungs: (6) Generalized weakness: (7) Acute blood loss anemia: (8) 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 Continue therapy 2. Plan for 3 additional doses of Lasix 40 mg twice daily. 3. Recheck a BMP and CBC on Tuesday 4. Increase Protonix to 40 mg twice daily in light of heme positive stools. May have stress ulceration. She will follow-up with Dr. Alvarez within the next 2 months to 3 months for follow-up colonoscopy. She has a history of colon polyps in her sister has colon cancer. 5. Continue BuSpar for anxiety relief Charges/Coding Visit Charges Inpatient E&M: [address] [facility] Hosp L1
[2023-07-27] MEDS: Ferrous Sulfate 325 MG Tablet PO (12:08)
[2023-07-27] MEDS: Ascorbic Acid 500 MG Tablet 1000 MG PO (12:08)
--- NOTE | 2023-07-27 15:47 | CHAPLAIN ---
Type of Pastoral Visit _x__ Initial Visit ___ Follow-up Visit ___ On-call Visit ___ General Patient Visit ___ Spiritual Assessment ___ Family Conference ___ Bereavement ___ Rapid Response ___ Code Blue ___ Other (describe below) Pastoral Care Referral From _x__ Patient ___ Family ___ Nurse ___ Physician ___ Dandy Operator ___ Environmental Engineering Intern ___ Other (describe below) Sacrament/Intervention _x__ Active listening ___ Anointing ___ Taoist ___ Bereavement ___ Communion _x__ Elenita exploration ___ _x__ Life review _x__ Prayer ___ Reconciliation ___ Sacrament of Sick ___ Supportive presence ___ Wedding ___ Other (describe below) Pastoral Comments patient is given opportunity to review her health experiences and the thoughts and feelings associated with them; pt sees that it may have been God that had prompted her to get medical attention; pt is working through a big change in her elenita community as her sikh has closed and she will seek another place of episcopal; pt is grateful that she could be in rehab and that has been helpful; pt has concerns for her who is home and has his own health issues; pt welcomes presence and prayer for support
[2023-07-27] MEDS: Saliva Substitute 237 ML BOTTLE 15 ML MUCOUS MEM (17:22)
[2023-07-27] MEDS: Lidocaine 5% Patch 2 PATCH TOPICAL (20:51)
[2023-07-27] MEDS: Atorvastatin Calcium 80 MG Tablet PO (21:06)
[2023-07-27] MEDS: MELATONIN 3 MG TABLET 5 MG PO (21:06)
[2023-07-27] MEDS: APIXABAN 5 MG TABLET PO (21:07)
[2023-07-28] VITALS (7 sets, daily range): BP systolic 116–161; BP diastolic 47–54; PULSE 64–70; RESP 15–17; TEMP 36.4–36.6; O2SAT 92–96; BMI 36.2
[2023-07-28] MEDS: Metoprolol Tartrate 50 MG Tablet PO ×3 (06:47→22:24)
[2023-07-28] MEDS: Saliva Substitute 237 ML BOTTLE 15 ML MUCOUS MEM ×3 (06:53→22:38)
[2023-07-28] MEDS: Potassium Chloride Oral Tablet 20 MEQ PO ×2 (08:31→22:11)
[2023-07-28] MEDS: Pantoprazole Sodium 40 MG Tablet PO ×2 (08:32→22:12)
[2023-07-28] MEDS: tiZANidine HCl 2 MG Tablet 4 MG PO (08:32)
[2023-07-28] MEDS: Folic Acid 1 MG Tablet PO (08:32)
[2023-07-28] MEDS: APIXABAN 5 MG TABLET PO ×2 (08:32→22:11)
[2023-07-28] MEDS: Amiodarone 200 MG Tablet PO (08:32)
[2023-07-28] MEDS: Clopidogrel Bisulfate 75 MG Tablet PO (08:32)
[2023-07-28] MEDS: Senna/Docusate Sodium 1 Tablet 2 TABLET PO ×2 (08:32→22:12)
[2023-07-28] MEDS: Magnesium Chloride 64 MG Delay Rel.Tablet 128 MG PO (08:32)
[2023-07-28] MEDS: Calcium Carbonate 500 MG Tablet PO (08:32)
[2023-07-28] MEDS: busPIRone 5 MG Tablet PO ×2 (08:33→22:11)
[2023-07-28] MEDS: DULoxetine Hcl 20 MG Capsule PO (08:34)
[2023-07-28] MEDS: Furosemide 40 MG/4 ML Vial IV (08:44)
--- NOTE | 2023-07-28 09:53 | PCM.PROGNOTE ---
Subjective Subjective Domi was seen on team rounds today. Her Jt was present in the room. Her daughter Emi participated by phone. Afebrile VSS -blood pressure over the past 24 hours has ranged from 114/60 at at bedtime to 152/54 this morning. Heart rate is in the 60s. Maintaining appropriate oxygen saturation on RA at rest but, desaturated to 87% with climbing stairs. Oral intake - FOOD good FLUIDS good despite 2 doses of intravenous Lasix on 07/27/2023 and the fluid balance is +40. Weight today is 185 pounds and 10 ounces which is down from 190 pounds at admission to rehab. Discussed with nursing - no problems that need addressed Reviewed the THERAPY notes Medication list reviewed. Tells me that she did not sleep well again last night but, nursing commented that she did sleep well? She was sleeping on and off throughout the day yesterday. She is still feeling anxious. Her breathing has improved significantly. She denies chest heaviness, shortness of breath at rest, lightheadedness, nausea/vomiting/abdominal pain, dysuria and calf tenderness. Objective Data Objective Data Vital Signs: Vital Signs Temp Pulse Resp BP Pulse Ox O2 Del Method O2 Flow Rate 97.6 F L 68 15 152/54 H 96 Room Air 1 07/28/23 07:32 07/28/23 07:32 07/28/23 07:32 07/28/23 07:32 07/28/23 07:32 07/28/23 07:32 07/28/23 09:00 FiO2 28 07/26/23 03:16 Oxygen Flow Rate (L/min) 1 Oxygen Delivery Method Room Air Weight: 185 lb 10.067 oz Body Mass Index (BMI) 36.2 Intake & Output: Intake and Output for Last 24 Hours 07/26/23 07/27/23 07/28/23 23:59 23:59 23:59 Intake Total 178 / 1979 2150 / 2150 400 / 400 Output Total 3040 / 3190 1949 / 1950 400 / 400 Balance -1260 / -1210 200 / 200 0 / 0 Lab / Micro Data 07/26/23 05:23 07/27/23 04:58 Micro: Microbiology 07/26/23 18:50 Stool Stool Occult Blood (AMY) - Final Occult Blood Positive Physical Exam Const alert and no apparent distress General Appearance: cooperative HEENT Mouth: dry mucous membranes Resp Resp Narrative: She is not tachypneic at rest. She has diminished BS's in the bases, R>L. Few coarse crackles in R lung. No crackles on the left today. No wheezing. No conversational dyspnea at rest. Breathing is getting a little labored with exertion. I have not heard her cough at all today. Cardio regular rate, regular rhythm and no gallops Cardio Narrative: No ectopy. 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 Continue therapy 2. DC Lasix 40 mg twice daily and give 80 mg of intravenous Lasix now. 3. CBC and BMP have been ordered in the AM. Hemoglobin has dropped from 12.5 on 07/02/23 to 7.9 on 07/26/2023. I suspect this contributes to dyspnea on exertion as well as the CHF. 4. Increase BuSpar to 3 times daily 5. Add trazodone 100 mg p.o. nightly for insomnia Charges/Coding Visit Charges Inpatient E&M: 10247 [facility] Hosp L2
[2023-07-28] MEDS: Ascorbic Acid 500 MG Tablet 1000 MG PO (12:05)
[2023-07-28] MEDS: Ferrous Sulfate 325 MG Tablet PO (12:05)
--- NOTE | 2023-07-28 12:50 | CASEMGMT ---
Social Work- Teams Meeting IDT met with patient at bedside with daughterEmi via phone. Discussed patient progress with therapy PT/OT and nursing. Patient is set up level for OT. Patient is ambulating 100ft with walker during therapy due to exertion. Patient is currently on oxygen; no home O2 currently. Patient dropped to 87% while on O2 using steps. Patient has goals to wean off O2 and ambulate without walker. Patient is progressing with therapy. JOHNY educated patient and daughterEmi on Medicare insurance coverage; currently approved days are pending. JOHNY discussed increased assistance for care with home health care v. outpatient therapy pending progress. Patient's daughter inquired about repeat chest xray; Dr. Pugh addressed daughters concerns. Patient inquired about fluid retention. Patient is being monitored for respiratory and cardiac concerns. JOHNY will continue to support discharge planning. PAULY Don
--- NOTE | 2023-07-28 14:05 | CASEMGMT ---
Social Work- RU Admit Note SW met with patient at bedside to complete initial intake assessment. SW introduced self and role. Patient verified demographics and contact information. Patient informed SW that prior to hospitalization, she was residing in home with , Jt. Patient informed SW that she was independent to complete ADLS. Patient confirmed code status full code. Patient informed SW that she has an advanced directive for POA uploaded in medical chart. Patient informed SW that she has . Jt as POA. SW educated patient on Medicare coverage and benefits; currently pending approved dates. Patient informed SW that her goal is to return home without a walker or oxygen. Patient PhQ-9 (07/10), score indicates mild depression. Patient has a history of being diagnosed with depression; prescribed Cymbalta. Patient informed SW that she has a history of going to counseling to manage depression. Patient informed SW that she was depressed and felt down over the past two weeks due to medical condition. Patient informed SW that she was in the hospital multiple times over the past three weeks due to shortness of breath and chest pains. Patient informed SW that she was diagnosed with congested heart failure and required a thoracentesis two weeks after initial hospitalization for shortness of breathe. Patient informed SW that she has issues with sleeping and appetite due to medical condition. Patient acknowledged that she felt her appetite is improving. SW spoke with physician, Dr. Pugh regarding concerns for sleeping. Patient will potentially be prescribed Trazadone for sleeping. Patient declined any additional support at this time. PAULY Don
[2023-07-28] MEDS: 0.9% Saline Lock 10 ML Syringe IV ×3 (14:53→22:35)
[2023-07-28] MEDS: Furosemide 100 MG/10 ML Vial 80 MG IV (14:54)
[2023-07-28] MEDS: Lidocaine 5% Patch 2 PATCH TOPICAL (22:05)
[2023-07-28] MEDS: traZODone 100 MG Tablet PO (22:11)
[2023-07-28] MEDS: Atorvastatin Calcium 80 MG Tablet PO (22:12)
[2023-07-29] VITALS (8 sets, daily range): BP systolic 110–163; BP diastolic 46–60; PULSE 63–74; RESP 15–16; TEMP 36.3–36.4; O2SAT 94–99; BMI 35.2
[2023-07-29 05:44] LABS: Hematocrit 29.9 % (37-47); Hemoglobin 9.4 g/dL (12.0-15.0); Mean Corp Hgb Conc 31.4 g/dL (32-36); Mean Corpuscular Volume 98.7 fL (81-99); Mean Platelet Vol. 8.9 fl (6.2-12.0); Platelet Count 373 K/mm3 (150-450); RBC Distribution Width SD 57.4 fl (35.1-43.9); Red Blood Count 3.03 M/mm3 (4.2-5.4); White Blood Count 4.9 K/mm3 (4.4-11.0)
[2023-07-29 06:06] LABS: Anion Gap 7 (5-15); BUN 16 mg/dL (7-18); BUN/Creat Ratio 17.1 RATIO (10-20); Calcium,Total 9.9 mg/dL (8.5-10.1); Chloride 102 mmol/L (98-107); Creatinine, Serum 0.93 mg/dL (0.55-1.02); EST Glomerular Filtration Rate 63 mL/min (>60); Est Glom Filt Rate - Afr Amer 76 mL/min (>60); Estimated Creatinine Clearance 52.64 ml/min; Glucose 92 mg/dL (74-106); Potassium 4.3 mmol/L (3.5-5.1); Sodium Level 139 mmol/L (136-145)
[2023-07-29] MEDS: busPIRone 5 MG Tablet PO ×3 (06:35→22:17)
[2023-07-29] MEDS: Metoprolol Tartrate 50 MG Tablet PO ×3 (06:35→22:20)
[2023-07-29] MEDS: Pantoprazole Sodium 40 MG Tablet PO ×2 (09:20→22:21)
[2023-07-29] MEDS: DULoxetine Hcl 20 MG Capsule PO (09:21)
[2023-07-29] MEDS: APIXABAN 5 MG TABLET PO ×2 (09:21→22:18)
[2023-07-29] MEDS: Potassium Chloride Oral Tablet 20 MEQ PO ×2 (09:21→22:18)
[2023-07-29] MEDS: Magnesium Chloride 64 MG Delay Rel.Tablet 128 MG PO (09:21)
[2023-07-29] MEDS: Clopidogrel Bisulfate 75 MG Tablet PO (09:21)
[2023-07-29] MEDS: Folic Acid 1 MG Tablet PO (09:21)
[2023-07-29] MEDS: Amiodarone 200 MG Tablet PO (09:21)
[2023-07-29] MEDS: Furosemide 100 MG/10 ML Vial 80 MG IV (10:14)
--- NOTE | 2023-07-29 11:06 | PCM.PROGNOTE ---
Subjective Subjective .Afebrile VSS -blood pressure over the past 24 hours has ranged from 116/47 to 161/49. The blood pressure this morning was 110/46. Heart rate is still in the 60-70 range. Maintaining appropriate oxygen saturation on RA-while awake and at rest. Desaturated to 87% with stair climbing yesterday. It quickly recovered when she sat down. yesterday was still c/o CHAHAL yesterday Oral intake - FOOD good FLUIDS good Weight today is 180 pounds, down from 185 pounds and 10 ounces yesterday. Fluid balance yesterday was -310 and she was -240 overnight. Discussed with nursing - no problems that need addressed. Refused Ativan last night but, she took the Trazodone. Slept in the recliner. Reviewed the THERAPY notes Medication list reviewed. All lab drawn this morning was personally reviewed. White blood cell count is normal. Hemoglobin is 9.4, up from 7.9 on 07/26/2023. Did not receive a transfusion but has been diuresed. Platelets are within normal limits and the sodium today is 139, up from 135 on 07/27/2023. Potassium is stable at 4.3 and the BUN is 16 with a stable creatinine of 0.93. Domi tells me that she slept well last night, better than she has slept in the past 2 weeks. She denies chest pain today and also denies palpitations. Her breathing is better and she is doing therapy without her oxygen and doing well. Denies cough. Denies lightheadedness. She is now able to do 1200 on the incentive spirometer, up from 250 at admission to rehab. Denies dysuria, diarrhea/constipation/nausea/vomiting/abdominal pain, dysuria and calf tenderness. She does have some pain in the medial thigh on the left where the vein graft was taken and there is still fairly extensive ecchymosis present. Objective Data Objective Data Vital Signs: Vital Signs Temp Pulse Resp BP Pulse Ox O2 Del Method O2 Flow Rate 97.3 F L 63 16 110/46 L 94 Room Air 2 07/29/23 08:49 07/29/23 09:30 07/29/23 09:30 07/29/23 09:30 07/29/23 10:00 07/29/23 10:00 07/29/23 08:49 FiO2 28 07/26/23 03:16 Oxygen Flow Rate (L/min) 2 Oxygen Delivery Method Room Air Weight: 185 lb 10.067 oz Body Mass Index (BMI) 36.2 Intake & Output: Intake and Output for Last 24 Hours 07/27/23 07/28/23 07/29/23 23:59 23:59 23:59 Intake Total 2150 / 2150 1640 / 1640 360 / 360 Output Total 1950 / 1950 1950 / 1950 600 / 600 Balance 200 / 200 -310 / -310 -240 / -240 Lab / Micro Data 07/29/23 05:02 07/29/23 05:02 Labs: Laboratory Results - last 24 hr 07/29/23 05:02: WBC 4.9, RBC 3.03 L, Hgb 9.4 L, Hct 29.9 L, MCV 98.7, MCH 31.0, MCHC 31.4 L, RDW Std Deviation 57.4 H, RDW Coeff of Tan 16.0 H, Plt Count 373, MPV 8.9, Sodium 139, Potassium 4.3, Chloride 102, Carbon Dioxide 30.0, Anion Gap 7, BUN 16, Creatinine 0.93, Estim Creat Clear Calc 52.64, Est GFR (MDRD) Af Amer 76, Est GFR (MDRD) Non-Af 63, BUN/Creatinine Ratio 17.1, Glucose 92, Calcium 9.9 Micro: Microbiology 07/26/23 18:50 Stool Stool Occult Blood (AMY) - Final Occult Blood Positive Physical Exam Const alert, oriented x3 and no apparent distress Constitutional Narrative: pale General Appearance: cooperative Orientation / Consciousness: Negative for confused HEENT head/scalp atraumatic Eyes PERRL and EOMs intact bilaterally Eyes Narrative: No discharge from the eyes Neck Neck Narrative: Decreased range of motion. Severe spasm in the bilateral trapezius muscles at the trapezius ridge bilaterally. Chest Chest: symmetrical chest wall rise Resp Resp Narrative: Has persistent crackles in both bases but the air exchange, especially on the right side, is much improved. No cough with deep breathing. No wheezing. No conversational dyspnea. Cardio regular rate, regular rhythm and no gallops Cardio Narrative: No ectopy GI normal to inspection, nondistended, normoactive bowel sounds, soft to palpation and non-tender GI Narrative: Having regular bowel movements. No guarding with palpation. no CVA tenderness Extremity no calf tenderness Extremity Narrative: She has extensive bruising of the medial left thigh and calf secondary to vein stripping for CABG. General Extremity: Negative for edema Skin Wound Narrative: All incisions and puncture wounds are healing well with no surrounding erythema, purulent discharge or increased swelling. Neuro CN's II-XII intact bilaterally and no focal motor deficits Motor Exam: general weakness Psych affect normal Appearance: grossly normal Activity / Motor Behavior: appropriate eye contact Mood & Affect: anxious Assessment & Plan Assessment/Plan (1) Debility: (2) S/P CABG x 3: (3) Acute congestive heart failure: QUALIFIERS: Heart failure type: combined systolic and diastolic Qualified Code(s): I50.41 - Acute combined systolic (congestive) and diastolic (congestive) heart failure (4) Pleural effusion: (5) Atelectasis of both lungs: (6) Generalized weakness: (7) Acute blood loss anemia: (8) Paroxysmal atrial fibrillation: (9) jail current use of anticoagulant: (10) Tobacco dependence: (11) History of thoracentesis: (12) Hyponatremia: (13) Heme positive stool: PLAN: Plan 1. Continue therapy 2. Discontinue intravenous Lasix and start Lasix 80 mg p.o. every morning 3. Continue to monitor weights daily 4. PA and lateral chest x-ray today 5. Hemoglobin is improving despite heme positive stools. She denies nausea/vomiting/epigastric pain. Protonix was increased to 40 mg 6. Continue trazodone 100 mg p.o. nightly 7. Recheck a BMP and HH on Tuesday Charges/Coding Visit Charges Inpatient E&M: 10852 [facility] L1
[2023-07-29] MEDS: Ascorbic Acid 500 MG Tablet 1000 MG PO (12:01)
[2023-07-29] MEDS: Ferrous Sulfate 325 MG Tablet PO (12:01)
--- NOTE | 2023-07-29 13:55 | RAD_ITS ---
INDICATION: BL pleural affusions/CHF EXAMINATION/TECHNIQUE: X-RAY - XR Chest 2 Views COMPARISON: 07/26/2023. FINDINGS: Slight improvement in aeration of the lungs. The cardiomediastinal silhouette is stable. Slight improvement in bilateral trace pleural effusions. No pneumothorax. The osseous structures are unchanged. RAD/Chest PA and Lateral IMPRESSION: Slight improvement in aeration of the lungs and trace bilateral pleural effusions. Otherwise, no change from prior study. Electronically Signed: Chester Whalen MD at 18:18 EDT ,
--- NOTE | 2023-07-29 13:59 | NURSING ---
Patient transported to XRay via wheel chair. Radiology to bring patient back when finished.
[2023-07-29] MEDS: Lidocaine 5% Patch 2 PATCH TOPICAL (21:17)
[2023-07-29] MEDS: traZODone 100 MG Tablet PO (22:18)
[2023-07-29] MEDS: Atorvastatin Calcium 80 MG Tablet PO (22:18)
[2023-07-29] MEDS: Saliva Substitute 237 ML BOTTLE 15 ML MUCOUS MEM (22:42)
[2023-07-29] MEDS: 0.9% Saline Lock 10 ML Syringe IV (22:45)
[2023-07-30] VITALS (7 sets, daily range): BP systolic 134–152; BP diastolic 47–72; PULSE 66–73; RESP 16; TEMP 36.9; O2SAT 94–98; BMI 34.4
[2023-07-30] MEDS: busPIRone 5 MG Tablet PO ×3 (05:44→20:41)
[2023-07-30] MEDS: Metoprolol Tartrate 50 MG Tablet PO ×3 (05:44→20:45)
[2023-07-30] MEDS: Potassium Chloride Oral Tablet 20 MEQ PO ×2 (08:17→20:41)
[2023-07-30] MEDS: Folic Acid 1 MG Tablet PO (08:17)
[2023-07-30] MEDS: Senna/Docusate Sodium 1 Tablet 2 TABLET PO (08:17)
[2023-07-30] MEDS: APIXABAN 5 MG TABLET PO ×2 (08:17→20:41)
[2023-07-30] MEDS: Pantoprazole Sodium 40 MG Tablet PO ×2 (08:17→20:42)
[2023-07-30] MEDS: Amiodarone 200 MG Tablet PO (08:17)
[2023-07-30] MEDS: Clopidogrel Bisulfate 75 MG Tablet PO (08:17)
[2023-07-30] MEDS: DULoxetine Hcl 20 MG Capsule PO (08:17)
[2023-07-30] MEDS: Magnesium Chloride 64 MG Delay Rel.Tablet 128 MG PO (09:04)
[2023-07-30] MEDS: 0.9% Saline Lock 10 ML Syringe IV ×2 (09:05→20:54)
[2023-07-30] MEDS: Furosemide 100 MG/10 ML Vial 80 MG IV (09:05)
[2023-07-30] MEDS: Ascorbic Acid 500 MG Tablet 1000 MG PO (12:10)
[2023-07-30] MEDS: Ferrous Sulfate 325 MG Tablet PO (12:10)
[2023-07-30] MEDS: Lidocaine 5% Patch 2 PATCH TOPICAL (20:40)
[2023-07-30] MEDS: traZODone 100 MG Tablet PO (20:41)
[2023-07-30] MEDS: Atorvastatin Calcium 80 MG Tablet PO (20:42)
[2023-07-30] MEDS: traMADol 50 MG Tablet PO (20:53)
[2023-07-31] MEDS: busPIRone 5 MG Tablet PO ×3 (05:51→20:47)
[2023-07-31 05:52] VITALS: BP 138/51; PULSE 69
[2023-07-31] MEDS: Metoprolol Tartrate 50 MG Tablet PO ×3 (05:52→20:48)
[2023-07-31 06:00] VITALS: BMI 34.3
[2023-07-31 07:01] VITALS: O2SAT 96
[2023-07-31 08:04] VITALS: BP 138/51; PULSE 69; RESP 18; TEMP 36.6; O2SAT 98
[2023-07-31] MEDS: Furosemide 100 MG/10 ML Vial 80 MG IV (09:20)
[2023-07-31] MEDS: 0.9% Saline Lock 10 ML Syringe IV (09:20)
[2023-07-31] MEDS: APIXABAN 5 MG TABLET PO ×2 (09:21→20:48)
[2023-07-31] MEDS: Amiodarone 200 MG Tablet PO (09:21)
[2023-07-31] MEDS: Potassium Chloride Oral Tablet 20 MEQ PO ×2 (09:22→20:48)
[2023-07-31] MEDS: Folic Acid 1 MG Tablet PO (09:22)
[2023-07-31] MEDS: Magnesium Chloride 64 MG Delay Rel.Tablet 128 MG PO (09:24)
[2023-07-31] MEDS: DULoxetine Hcl 20 MG Capsule PO (09:28)
[2023-07-31] MEDS: Clopidogrel Bisulfate 75 MG Tablet PO (09:28)
[2023-07-31] MEDS: Pantoprazole Sodium 40 MG Tablet PO ×2 (09:28→20:48)
[2023-07-31] MEDS: Ascorbic Acid 500 MG Tablet 1000 MG PO (11:48)
[2023-07-31] MEDS: Ferrous Sulfate 325 MG Tablet PO (11:48)
[2023-07-31 13:27] VITALS: PULSE 71
[2023-07-31 19:51] VITALS: BP 117/46; PULSE 62; RESP 16; TEMP 36.9; O2SAT 97
[2023-07-31] MEDS: Lidocaine 5% Patch 2 PATCH TOPICAL (20:47)
[2023-07-31] MEDS: traZODone 100 MG Tablet PO (20:47)
[2023-07-31 20:48] VITALS: BP 149/41; PULSE 70
[2023-07-31] MEDS: Atorvastatin Calcium 80 MG Tablet PO (20:48)
[2023-08-01 05:01] VITALS: BP 133/59; PULSE 71
[2023-08-01] MEDS: busPIRone 5 MG Tablet PO ×3 (05:01→21:47)
[2023-08-01] MEDS: Metoprolol Tartrate 50 MG Tablet PO ×3 (05:01→21:47)
[2023-08-01 05:11] LABS: Hematocrit 31.3 % (37-47); Hemoglobin 9.6 g/dL (12.0-15.0)
[2023-08-01 05:39] LABS: Anion Gap 4 (5-15); BUN 17 mg/dL (7-18); BUN/Creat Ratio 17.1 RATIO (10-20); Calcium,Total 9.7 mg/dL (8.5-10.1); Chloride 109 mmol/L (98-107); Creatinine, Serum 0.99 mg/dL (0.55-1.02); EST Glomerular Filtration Rate 58 mL/min (>60); Est Glom Filt Rate - Afr Amer 71 mL/min (>60); Estimated Creatinine Clearance 48.02 ml/min; Glucose 107 mg/dL (74-106); Magnesium 2.2 mg/dL (1.6-2.6); Potassium 4.5 mmol/L (3.5-5.1); Sodium Level 140 mmol/L (136-145)
[2023-08-01 06:00] VITALS: BMI 34.4
[2023-08-01 07:37] VITALS: BP 133/59; PULSE 71; RESP 18; TEMP 36.6; O2SAT 95
[2023-08-01] MEDS: Furosemide 80 MG Tablet PO (08:24)
[2023-08-01] MEDS: Folic Acid 1 MG Tablet PO (08:25)
--- NOTE | 2023-08-01 09:29 | PCM.PROGNOTE ---
Subjective Subjective Afebrile VSS -blood pressure is well-controlled. Heart rate is within normal limits. Maintaining appropriate oxygen saturation on RA Oral intake - FOOD good FLUIDS good Weight today is 176 pounds and 9 ounces down from 192 pounds and 4 ounces on 07/26/2023. Discussed with nursing - no problems that need addressed Reviewed the THERAPY notes Medication list reviewed. All lab was personally reviewed. Hemoglobin is stable at 9.6. Sodium is 140 and the potassium is stable at 4.5. The BUN is 17 which is stable and creatinine is 0.99 which is also stable. Magnesium is normal at 2.2. She tells me that she is feeling better each day. She is still having some chest discomfort.......worse when lying in the bed so she has been sleeping in the recliner and she tells me she is very comfortable in the recliner. She denies orthopnea, palpitations, lightheadedness, cramps in her calves, dysuria, dyspnea on exertion. Objective Data Objective Data Vital Signs: Vital Signs Temp Pulse Resp BP Pulse Ox O2 Del Method O2 Flow Rate 97.9 F 71 18 133/59 H 95 Room Air 2 08/01/23 07:37 08/01/23 07:37 08/01/23 07:37 08/01/23 07:37 08/01/23 07:37 08/01/23 08:14 07/31/23 08:04 FiO2 28 07/26/23 03:16 Oxygen Flow Rate (L/min) 2 Oxygen Delivery Method Room Air Weight: 176 lb 9.444 oz Body Mass Index (BMI) 34.4 Intake & Output: Intake and Output for Last 24 Hours 07/30/23 07/31/23 08/01/23 23:59 23:59 23:59 Intake Total 1460 / 1460 1220 / 1220 220 / 220 Output Total 2300 / 2300 1650 / 1650 300 / 300 Balance -840 / -840 -430 / -430 -80 / -80 Lab / Micro Data 08/01/23 04:55 08/01/23 04:55 Labs: Laboratory Results - last 24 hr 08/01/23 04:55: Hgb 9.6 L, Hct 31.3 L, Sodium 140, Potassium 4.5, Chloride 109 H, Carbon Dioxide 27.0, Anion Gap 4 L, BUN 17, Creatinine 0.99, Estim Creat Clear Calc 48.02, Est GFR (MDRD) Af Amer 71, Est GFR (MDRD) Non-Af 58 L, BUN/Creatinine Ratio 17.1, Glucose 107 H, Calcium 9.7, Magnesium 2.2 Micro: Microbiology 07/26/23 18:50 Stool Stool Occult Blood (AMY) - Final Occult Blood Positive Physical Exam Const alert, oriented x3 and no apparent distress Constitutional Narrative: pale General Appearance: cooperative Orientation / Consciousness: Negative for confused HEENT head/scalp atraumatic Eyes PERRL, EOMs intact bilaterally, conjunctivae normal and no scleral icterus Eyes Narrative: No discharge from the eyes Neck Neck Narrative: Decreased range of motion. Severe spasm in the bilateral trapezius muscles at the trapezius ridge bilaterally. Chest Chest: symmetrical chest wall rise Resp Resp Narrative: Much improved air exchange. There are coarse crackles in both of the lung bases that clears somewhat after a few deep breaths. No coughing with deep breaths. No conversational dyspnea. Not tachypneic. Denies shortness of breath with exertion. Cardio regular rate, regular rhythm and no gallops Cardio Narrative: No ectopy GI normal to inspection, nondistended, normoactive bowel sounds, soft to palpation and non-tender GI Narrative: Having regular bowel movements. No guarding with palpation. no CVA tenderness Extremity no calf tenderness and no pedal edema Extremity Narrative: She has a cord of localized swelling on the medial side of the L thigh above the knee. It is painful to touch and she was c/o pain even before I palpated the area. She had a vein graft taken from the left leg. there is no erythema and no significant bruising where the site of pain is. General Extremity: Negative for edema Skin Rashes: no rashes Wound Narrative: All incisions and puncture wounds are healing well with no surrounding erythema, purulent discharge or increased swelling. 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 Continue therapy 2. Obtain a venous ultrasound of the left lower extremity 3. No changes to the drug regimen 4. Continue Protonix. she is on Apixaban and the stool is heme postive. She denies N/V/epigastric pain and heartburn. HGB is stable. 5. Discussed with the rest of the TEAM today and everyone feels she is stable for DC Will plan on Dc home tomorrow. She will follow up with cardiology and get scheduled for cardiac rehab. Charges/Coding Visit Charges Inpatient E&M: 12310 [facility] Hosp L1
[2023-08-01] MEDS: DULoxetine Hcl 20 MG Capsule PO (10:34)
[2023-08-01] MEDS: Pantoprazole Sodium 40 MG Tablet PO ×2 (10:34→21:47)
[2023-08-01] MEDS: Amiodarone 200 MG Tablet PO (10:34)
[2023-08-01] MEDS: Clopidogrel Bisulfate 75 MG Tablet PO (10:34)
[2023-08-01] MEDS: Potassium Chloride Oral Tablet 20 MEQ PO ×2 (10:34→21:47)
[2023-08-01] MEDS: Magnesium Chloride 64 MG Delay Rel.Tablet 128 MG PO (10:34)
[2023-08-01] MEDS: APIXABAN 5 MG TABLET PO ×2 (10:34→21:47)
[2023-08-01] MEDS: 0.9% Saline Lock 10 ML Syringe IV (10:37)
--- NOTE | 2023-08-01 12:06 | VDLE_ITS ---
Reason For Study: HX CABG / Lt GSV [place] RIGHT LEFT CFV is compressible, spontaneous, phasic, Lt GSV appears compressible from junction to competent and demonstrates normal mid thigh. Vessel appears to have been augmentation. harvested. Non vascularized anechoic areas Procedure noted in place of GSV from mid thigh to mid This is a venous duplex using B-mode, color calf. GSV is compressible from mid calf to flow and spectral Doppler. ankle. Exam performed portable in patient room. CFV is compressible, spontaneous, phasic, The exam was diagnostic. competent, and demonstrates normal A preliminary report was called and/or faxed augmentation. to RN responsible for patient. FV is compressible, spontaneous, phasic, competent and demonstrates normal augmentation. POP V is compressible, spontaneous, phasic, competent and demonstrates normal augmentation. T/P Trunk is compressible. PTV is compressible. LT PerV is compressible. VL/Venous Duplex US, Unilateral Interpretation Summary Deep veins of the left lower extremity are patent and compressible segmentally. There is no evidence of left lower extremity deep vein thrombosis. The left great saphenous vein warner ears patent and compressible segmentally. Portions of GSV appear recently harvested. Ordering Physician: Marylin Pugh Referring Physician: Leonor Orellana Performed By: Larry Salgado RVT
[2023-08-01] MEDS: Ascorbic Acid 500 MG Tablet 1000 MG PO (12:28)
[2023-08-01] MEDS: Ferrous Sulfate 325 MG Tablet PO (12:28)
[2023-08-01 14:12] VITALS: BP 120/48; PULSE 67
--- NOTE | 2023-08-01 14:37 | DCINST_ITS ---
Discharge Instructions Diet Discharge Diet: - (cardiac diet - low slat and low fat. ) Activity Discharge Activity: May Not Drive, May Shower and - (you are safe to wlak around your house without an assistive device but, when you are out in public I would take a cane or the walker. ) Weight Bearing Status: Full weight bearing Dressing / Incision Call your doctor if your incision/area has: Continuous Slow Oozing, Sudden Increased Bleeding, Increased Pain/ Swelling, Increased Redness, Foul Smelling Discharge and Swelling at the incision site Call your doctor if you observe: Fever of 101 or Higher, Shortness of breath, Dizziness, Fainting spells, Swelling in the ankles, Chest pain, Increased palpitations (irregular heartbeat), Calf discomfort and Uncontrolled pain Suture Line Care: Avoid Pulling/Pushing and Avoid Pinching/Bending Additional Dressing/Incision Instructions:: No dressing is needed. Follow Up Care Please Follow Up With: Leonor Orellana NP, [facility] When: on 08/08/23 at 1 PM with Leonor Orellana and you will also follow up with Tesha Wilhelm from [facility] on 08/15/23 at 3 PM. You will also need to follow up with Dr. Nieto who did your surgery. Test Results: Test results from this visit will be discussed in further detail at your follow- up appointment, if applicable. 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 Attending Provider: Marylin Pugh Primary Care Provider: Leonor Orellana NP Instructions Patient Instructions: Heart Failure Flare Up Signs, Kicking the Smoking Habit Additional Instructions / Restrictions: 1. You had a lot of fluid around both lungs when you came to rehab and you had a procedure called a thoracentesis done by the radiologist to remove fluid. He was able to remove a little more than 1 liter of fluid from around the right lung. The fluid was actually causing collapse of the bottom of the R lung. We increased the diuretics to get rid of the extra fluid you had left. 2. Your weight when you came to rehab was 192 LBS and 4 oz. Your weight 1 days prior to discharge is 176 lbs and 9 oz. You have lost about 15 1/2 lbs of fluid since you came to rehab. Watch the salt in your diet....small makes you retain fluid. Get in the habit of weighing yourself every morning for a couple weeks. If you weight goes up by 2 lbs or more in 1 day or 5 or more lbs in 1 week then you are likely retaining fluid and you need to cut back on salt and amount of water you are drinking. You may need to take an extra dose of Lasix if the weight stays up, even with the decreased salt and the decreased fluid. It is going to be hot this summer and high heat makes the legs swell. Generally they go down overnight when you have them elevated in bed. Elevate your legs during the day anytime you are sitting. You may need to wear a compression stocking on the Left leg. When they take the vein out of the leg to use for the bypass your leg will always tend to swell more.....jordi if it is hot or you are fluid overloaded. I have given you a handout that talks about the signs and symptoms of CHF (congestive heart failure). Please read it. 3. Your BP is well controlled. Your heart rate has been within normal limits and it has been regular. 4. You are a little anemic. That means you red blood cell count is a little low, likely from blood loss from the surgery. We checked your stool and there is some blood in the stool......this is not uncommon in patients who are on anticoagulants like Apixaban(also called Eliquis). The count is stable. If you start feeling increasingly fatigued, lightheaded and short of breath with exercise the blood count may be dropping and you should call your doctor. 5. You do not have cravings for cigarettes now but, this may change when you go home. IF you fall off the [facility] the hospital has a smoking cessation program that can help. All you need to do is call the hospital at [phone] and ask to be connected to the smoking cessation coordinator. 6. You did a great job on rehab and were a lori to work with. If you or your family have any questions after you leave rehab please do not hesitate to call me. I will send a copy of the discharge summary to all the physicians you will be following up with so they know how you did in therapy. OFFICE: [phone] CELL: [phone] Have a great summer and stay well. PS: I gave you #10 Trazodone to have at home. This is the medication we gave you in the hospital to help you sleep. You do not have to take it every night.......take it as needed if you are having trouble falling asleep or if you are having trouble staying asleep. Hopefully you will not need this medication when you are home. Discharge Orders/Prescriptions Prescriptions: New buspirone 5 mg Tablet 5 mg PO TID Qty: 90 0RF Rx Instructions: Take this 3 times a day to control anxiety furosemide 80 mg Tablet 80 mg PO DAILY Qty: 30 0RF Rx Instructions: One daily in the AM magnesium chloride [Mag 64] 64 mg Tablet,Delayed Release (Dr/Ec) 128 mg PO DAILY Qty: 30 0RF tramadol 50 mg Tablet 50 mg PO Q8H PRN PRN (Reason: Pain Score 1-10) 7 Days Qty: 21 0RF potassium chloride 20 mEq Tablet,Er Particles/Crystals 20 meq PO BID Qty: 60 0RF pantoprazole 40 mg Tablet,Delayed Release (Dr/Ec) 40 mg PO BID Qty: 60 0RF trazodone 100 mg Tablet 100 mg PO QHS PRN (Reason: insomnia) Qty: 10 0RF Rx Instructions: Take one at bedtime as needed for insomnia Continued atorvastatin 80 mg tablet 80 mg PO QHS Qty: 90 3RF duloxetine 20 mg capsule,delayed release(DR/EC) 20 mg PO DAILY Patient Comments: take 1 capsule by mouth once daily clopidogrel 75 mg tablet 75 mg PO DAILY metoprolol tartrate 50 mg tablet 50 mg PO TID folic acid 1 mg tablet 1 mg PO DAILY ascorbic acid (vitamin C) 500 mg tablet 1 g PO DAILY@1200 calcium carbonate [Antacid (calcium carbonate)] 200 mg calcium (500 mg) tablet,chewable 400 mg PO BID PRN (Reason: dyspepsia) ferrous sulfate [FeroSul] 325 mg (65 mg iron) tablet 325 mg PO DAILY@1200 amiodarone 200 mg Tablet 200 mg PO DAILY Qty: 0 0RF Eliquis 5 mg tablet 5 mg PO BID Qty: 60 11RF Discontinued pantoprazole 40 mg tablet,delayed release (DR/EC) 40 mg PO QDAY albuterol sulfate 1.25 mg/3 mL solution for nebulization 1.25 mg INHALATION Q4H PRN (Reason: sob/wheezing) melatonin 3 mg capsule 3 mg PO QHS PRN (Reason: sleep) furosemide 40 mg Tablet 40 mg PO BID Qty: 60 0RF potassium chloride 10 mEq tablet extended release 20 meq PO BID Qty: 120 0RF ipratropium-albuterol 0.5 mg-3 mg(2.5 mg base)/3 mL Solution For Nebulization 3 ml inhalation Q6H.RT Qty: 0 0RF No Action tramadol 50 mg tablet 50 mg PO Q8H PRN Referrals / Follow Up: Jan Nieto MD [Non-Staff] - 08/12/23 2:00 pm Leonor Orellana NP, [facility] [Primary Care Provider] - 08/08/23 1:00 pm (please bring DC packet to appt ) Tesha Wilhelm PA [Med Staff - [facility]] - 08/15/23 3:00 pm Disposition Disposition (needs filled in before D/C Order can be placed): Home, Self Care
--- NOTE | 2023-08-01 15:31 | PCM.DC.SUM ---
Providers Date of Admission: 07/25/23 Date of Discharge: 08/02/23 Primary Care Physician: CHRISTIAN Mcqueen Reason For Visit: DEBILITY Diagnosis Discharge Diagnosis (1) Debility: Status: Acute Code(s): R53.81 - Other malaise Plan: Due to generalized weakness related to recent CABG and to acute CHF with large BL pleural effusions. (2) S/P CABG x 3: Status: Inactive Code(s): Z95.1 - Presence of aortocoronary bypass graft Plan: Surgery was done by Dr. Diamond on 07/12/23 at [facility]. (3) Acute congestive heart failure: Status: Resolved Code(s): I50.9 - Heart failure, unspecified Qualifiers: Heart failure type: combined systolic and diastolic Qualified Code(s): I50.41 - Acute combined systolic (congestive) and diastolic (congestive) heart failure (4) Pleural effusion: Status: Acute Code(s): J90 - Pleural effusion, not elsewhere classified Plan: BL, severe, R>L. (5) Atelectasis of both lungs: Status: Acute Code(s): J98.11 - Atelectasis Plan: Compressive atelectasis due to very large effusion on the R. (6) History of thoracentesis: Status: Inactive Code(s): Z98.890 - Other specified postprocedural states Plan: A total of 1040 cc of clear lani-colored fluid was drained on 07/26/2023. Eliquis was held for the procedure and restarted the following day. (7) Generalized weakness: Status: Acute Code(s): R53.1 - Weakness (8) Acute blood loss anemia: Status: Acute Code(s): D62 - Acute posthemorrhagic anemia Plan: Stable at 9.6 at discharge from rehab. No transfusion was necessary. (9) Paroxysmal atrial fibrillation: Status: Chronic Code(s): I48.0 - Paroxysmal atrial fibrillation Plan: Will continue amiodarone 200 mg daily and Eliquis 5 mg twice daily. Has been in NSR since arrival on rehab. 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 (11) Heme positive stool: Status: Acute Code(s): R19.5 - Other fecal abnormalities Plan: Protonix was increased to 40 mg p.o. twice daily. She has a history of colon polyps and had removal of polyps [address] Alvarez. She is due for follow-up with him. (12) Hyponatremia: Status: Resolved Code(s): E87.1 - Hypo-osmolality and hyponatremia (13) Tobacco dependence: Status: Resolved Code(s): F17.200 - Nicotine dependence, unspecified, uncomplicated Plan: Smoking cessation counseling was given. She was started on BuSpar 5 mg 3 times daily for anxiety which has helped with cravings for cigarettes. (14) GERD (gastroesophageal reflux disease): Status: Chronic Code(s): K21.9 - Gastro-esophageal reflux disease without esophagitis Qualifiers: Esophagitis presence: esophagitis presence not specified Qualified Code(s): K21.9 - Gastro-esophageal reflux disease without esophagitis Plan 1. Discharge home on 08/02/2023. Has follow-up scheduled with MARK Ortega to discuss cardiac rehab. She will also follow-up with Dr. Diamond from cardiothoracic surgeon and with her PCP Leonor Orellana NP. Medications at Discharge Home Medications atorvastatin 80 mg tablet 80 mg PO QHS cholesterol #90 tabs 01/11/18 duloxetine 20 mg capsule,delayed release 20 mg PO DAILY mood 04/27/22 apixaban 5 mg tablet (Eliquis) 5 mg PO BID blood thinner #60 tabs 01/25/23 ascorbic acid (vitamin C) 500 mg tablet 1 g PO DAILY@1200 vitamin 07/24/23 calcium carbonate (Antacid (calcium carbonate)) 400 mg PO BID PRN dyspepsia 07/24/23 clopidogrel 75 mg tablet 75 mg PO DAILY anti platelet 07/24/23 ferrous sulfate 325 mg (65 mg iron) tablet (FeroSul) 325 mg PO DAILY@1200 vitamin 07/24/23 folic acid 1 mg tablet 1 mg PO DAILY vitamin 07/24/23 metoprolol tartrate 50 mg tablet 50 mg PO TID blood pressure 07/24/23 tramadol 50 mg tablet 50 mg PO Q8H PRN pain 07/24/23 amiodarone 200 mg tablet 200 mg PO DAILY heart #0 tabs 07/25/23 buspirone 5 mg tablet 5 mg PO TID #90 tabs 08/01/23 furosemide 80 mg tablet 80 mg PO DAILY #30 tabs 08/01/23 magnesium chloride 64 mg (magnesium chloride) tablet,delayed release (Mag 64) 128 mg (2 x 64 mg) PO DAILY #30 tabs 08/01/23 pantoprazole 40 mg tablet,delayed release 40 mg PO BID #60 tabs 08/01/23 potassium chloride 20 mEq tablet,extended release(part/cryst) 20 meq PO BID #60 tabs 08/01/23 tramadol 50 mg tablet 50 mg PO Q8H PRN PRN Pain Score 1-10 7 days #21 tabs 08/01/23 trazodone 100 mg tablet 100 mg PO QHS PRN insomnia #10 tabs 08/01/23 Hospital Course Operations - (CABG x 3 vessels at [facility] by Dr. Diamond on 07/12/23. ) Procedures Thoracentesis (1040 cc of clear fluid was removed. ) Summary of Care Provided Minutes Spent on Discharge: 40 Hospital Course: SLY SNELL, is a 72-year-old F with a PMH of anxiety/depression, asthma, tobacco dependence, chronic renal failure stage II, obesity, coronary artery disease with history of PCI, carotid disease status post CEA, PAF, RLS, ERICKA, hypertension, hyperlipidemia, chronic back pain with presence of a spinal cord stimulator and osteoporosis who presented initially to the ED at [facility] on 07/01/23 c/o chest pain. She was admitted to the hospitalist service and underwent cardiac cath on 07/04/23. The catheterization showed 40% ostial stenosis of the left main. There was severe disease with 90% stenosis involving the ostia of the LAD and a 99% occluded circumflex. There was 90% ostial stenosis of the ramus. The previous stent to the RCA was patent and the ostial RCA was 30% stenosed. She was transferred to [facility] for CABG and underwent CABG X 3 on 07/12/[address] Diamond. Post op course was complicated by acute blood loss anemia and at DC the HGB was 7.9. She was discharged home on 07/20/23. On 07/24/23 she presented to the ED at [facility] c/o chest pain and severe SOB, at rest and with exertion. she had been unable to sleep she was so uncomfortable. Pulse ox was 96% on RA at rest but, she desaturated with exertion. A CTA of the chest was done and there was no evidence of central pulmonary embolism but it was a suboptimal evaluation. There was a large pleural effusion on the R and a moderate effusion on the left with compressive atelectasis in both lungs. Labs showed a normal white blood cell count of 7.5 and hemoglobin of 8.3. Potassium was low at 2.9. BNP was elevated to 506. She was admitted to the hospitalist service and started on ceftriaxone and azithromycin for suspected right middle lobe pneumonia. She was also started on aerosol treatments. She was discharged to the acute inpt rehab unit on 07/25/23 for 3 hours of therapy/strengthening prior to going home. She was not on antibiotics at the time of DC and Lasix had been continued but, increased to 40 mg BID. At presentation to rehab Sly was SOB even at rest and not able to sleep at night due to severe orthopnea. she was not diuresing on Lasix 40 mg BID. Eliquis was held and she went for thoracentesis on 07/26/23. 1040 cc of clear fluid was removed from the R side and she felt much better. She had a cough for about 24 hours more likely than not due to reexpansion of the right lower lung. She was afebrile and the cough completely resolved after approximately 24 hours. She still had BL effusions on the follow up CXR and although the orthopnea was better she still had CHAHAL. She was started on IV Lasix 80 mg BID and had a good diuresis. She was then transitioned to 80 mg PO once daily. Her weight is down approximately 15 lbs since admission to rehab and ist currently stable around 175-177. She has no CHAHAL and is sleeping well at night. Auscultation of the lungs on the day of DC revealed coarse crackles in the bases of both lungs that improved somewhat with several deep breaths. Sly did well in therapy. At the time of DC she is independent with eating, grooming, toileting and toilet transfer.. She is supervision/set up for bathing, upper body dressing , lower body dressing and tub/shower transfer. She is able to do 13 sit to stands with no use of her upper extremities at mod I on room air prior to discharge. She can ascend/descend 8 standard steps with 1 handrail at contact-guard assist. She has ambulated 175 feet with no assistive device at standby assist. She was discharged home on 08/02/23. she has appts scheduled with Dr. Diamond, MARK Ortega and Sara Orellana NP. Physical Exam Const alert, oriented x3 and no apparent distress Constitutional Narrative: pale General Appearance: cooperative Orientation / Consciousness: Negative for confused HEENT head/scalp atraumatic Eyes PERRL, EOMs intact bilaterally, conjunctivae normal and no scleral icterus Eyes Narrative: No discharge from the eyes Chest Chest: symmetrical chest wall rise Resp normal respiratory effort Resp Narrative: No wheezing. She has coarse crackles in the bases that partially clear after a few deep breaths. Effort and Inspection: Negative for tachypneic or labored Cardio regular rate, regular rhythm and no gallops Cardio Narrative: No ectopy GI normal to inspection, nondistended, normoactive bowel sounds, soft to palpation and non-tender GI Narrative: Having regular bowel movements. No guarding with palpation. no CVA tenderness Extremity no calf tenderness and no pedal edema Extremity Narrative: There is a area on the distal Left medial thigh that is tender to the touch and there is a well defined mass just proximal to the knee. Venous US was reportedly negative per the tech but, there is no report in the EMR yet. I suspect this is a hematoma. She is already on an anticoagulant. Will follow up on the report when it is available. General Extremity: Negative for clubbing or cyanosis Skin General Skin Exam: no breakdown Rashes: no rashes Wound Narrative: All incisions and puncture wounds are healing well with no surrounding erythema, purulent discharge or increased swelling. Neuro oriented x3, CN's II-XII intact bilaterally, moves all extremities and no focal motor deficits Motor Exam: general weakness Psych mental status grossly normal, cooperative, affect normal, speech normal, denies homicidal ideation and denies suicidal ideation Appearance: grossly normal Activity / Motor Behavior: appropriate eye contact Mood & Affect: anxious Weight / BMI Weight Weight: 176 lb 9.444 oz Body Mass Index (BMI) 34.4 ABG / Lab / Microbiology Data 08/01/23 04:55 08/01/23 04:55 Laboratory: Laboratory Results - last 24 hr 08/01/23 04:55: Hgb 9.6 L, Hct 31.3 L, Sodium 140, Potassium 4.5, Chloride 109 H, Carbon Dioxide 27.0, Anion Gap 4 L, BUN 17, Creatinine 0.99, Estim Creat Clear Calc 48.02, Est GFR (MDRD) Af Amer 71, Est GFR (MDRD) Non-Af 58 L, BUN/Creatinine Ratio 17.1, Glucose 107 H, Calcium 9.7, Magnesium 2.2 Microbiology: Microbiology 07/26/23 18:50 Stool Stool Occult Blood (AMY) - Final Occult Blood Positive D/C Instructions Discharge Diet: - (cardiac diet - low slat and low fat. ) Weight Bearing Status: Full weight bearing Call your doctor if your incision/area has: Continuous Slow Oozing, Sudden Increased Bleeding, Increased Pain/ Swelling, Increased Redness, Foul Smelling Discharge and Swelling at the incision site Call your doctor if you observe: Fever of 101 or Higher, Shortness of breath, Dizziness, Fainting spells, Swelling in the ankles, Chest pain, Increased palpitations (irregular heartbeat), Calf discomfort and Uncontrolled pain Suture Line Care: Avoid Pulling/Pushing and Avoid Pinching/Bending Additional Dressing/Incision Instructions: No dressing is needed. Pending Tests Upon Discharge: none Please Follow Up With: Leonor Orellana NP, WAREHOUSE REPRESENTATIVE-C When: on 08/08/23 at 1 PM with Leonor Orellana and you will also follow up with Tesha Wilhelm from [facility] on 08/15/23 at 3 PM. You will also need to follow up with Dr. Diamond who did your surgery. Meaningful Use Info Meaningful Use Meaningful Use Diagnoses (Choose all that apply): CHF CHF LEEANNE/ARB ordered at discharge?: No Reason LEEANNE/ARB not ordered?: Normal EF Documented LVEF (%): 65 (On an echocardiogram done at [facility] on 07/02/2023.) Ischemic Stroke Statin Dosing Therapy Reference: STATIN DOSE THERAPY REFERENCE: * Patients > 75 years receive moderate or high dose statin therapy. * Patients 75 years or YOUNGER should receive HIGH intensity statin dose unless contraindicated. You will be required to document reason for non-treatment if statin daily dose does not meet guidelines. HIGH DOSE STATIN THERAPY DAILY Atorvastatin > than or = to 40 mg Rosuvastatin > than or = to 20 mg Amlodipine + Atorvastatin > than or = to 2.5/40 mg Ezetimibe + Simvastatin 10/80 mg Simvastatin 80mg Discharge Plan Admission Admit Date/Time: 07/25/23 16:59 Primary Reason for Your Visit: Debility due to generalized weakness due to CABG and acute CHF. Attending Provider: Marylin Pugh Primary Care Provider: Leonor Orellana WAREHOUSE REPRESENTATIVE Instructions Patient Instructions: Heart Failure Flare Up Signs, Kicking the Smoking Habit Additional Instructions / Restrictions: 1. You had a lot of fluid around both lungs when you came to rehab and you had a procedure called a thoracentesis done by the radiologist to remove fluid. He was able to remove a little more than 1 liter of fluid from around the right lung. The fluid was actually causing collapse of the bottom of the R lung. We increased the diuretics to get rid of the extra fluid you had left. 2. Your weight when you came to rehab was 192 LBS and 4 oz. Your weight 1 days prior to discharge is 176 lbs and 9 oz. You have lost about 15 1/2 lbs of fluid since you came to rehab. Watch the salt in your diet....small makes you retain fluid. Get in the habit of weighing yourself every morning for a couple weeks. If you weight goes up by 2 lbs or more in 1 day or 5 or more lbs in 1 week then you are likely retaining fluid and you need to cut back on salt and amount of water you are drinking. You may need to take an extra dose of Lasix if the weight stays up, even with the decreased salt and the decreased fluid. It is going to be hot this summer and high heat makes the legs swell. Generally they go down overnight when you have them elevated in bed. Elevate your legs during the day anytime you are sitting. You may need to wear a compression stocking on the Left leg. When they take the vein out of the leg to use for the bypass your leg will always tend to swell more.....jordi if it is hot or you are fluid overloaded. I have given you a handout that talks about the signs and symptoms of CHF (congestive heart failure). Please read it. 3. Your BP is well controlled. Your heart rate has been within normal limits and it has been regular. 4. You are a little anemic. That means you red blood cell count is a little low, likely from blood loss from the surgery. We checked your stool and there is some blood in the stool......this is not uncommon in patients who are on anticoagulants like Apixaban(also called Eliquis). The count is stable. If you start feeling increasingly fatigued, lightheaded and short of breath with exercise the blood count may be dropping and you should call your doctor. 5. You do not have cravings for cigarettes now but, this may change when you go home. IF you fall off the wan the hospital has a smoking cessation program that can help. All you need to do is call the hospital at [phone] and ask to be connected to the smoking cessation coordinator. 6. You did a great job on rehab and were a lori to work with. If you or your family have any questions after you leave rehab please do not hesitate to call me. I will send a copy of the discharge summary to all the physicians you will be following up with so they know how you did in therapy. OFFICE: [phone] CELL: [phone] Have a great summer and stay well. PS: I gave you #10 Trazodone to have at home. This is the medication we gave you in the hospital to help you sleep. You do not have to take it every night.......take it as needed if you are having trouble falling asleep or if you are having trouble staying asleep. Hopefully you will not need this medication when you are home. Discharge Orders/Prescriptions Prescriptions: New buspirone 5 mg Tablet 5 mg PO TID Qty: 90 0RF Rx Instructions: Take this 3 times a day to control anxiety furosemide 80 mg Tablet 80 mg PO DAILY Qty: 30 0RF Rx Instructions: One daily in the AM magnesium chloride [Mag 64] 64 mg Tablet,Delayed Release (Dr/Ec) 128 mg PO DAILY Qty: 30 0RF tramadol 50 mg Tablet 50 mg PO Q8H PRN PRN (Reason: Pain Score 1-10) 7 Days Qty: 21 0RF potassium chloride 20 mEq Tablet,Er Particles/Crystals 20 meq PO BID Qty: 60 0RF pantoprazole 40 mg Tablet,Delayed Release (Dr/Ec) 40 mg PO BID Qty: 60 0RF trazodone 100 mg Tablet 100 mg PO QHS PRN (Reason: insomnia) Qty: 10 0RF Rx Instructions: Take one at bedtime as needed for insomnia Continued atorvastatin 80 mg tablet 80 mg PO QHS Qty: 90 3RF duloxetine 20 mg capsule,delayed release(DR/EC) 20 mg PO DAILY Patient Comments: take 1 capsule by mouth once daily clopidogrel 75 mg tablet 75 mg PO DAILY metoprolol tartrate 50 mg tablet 50 mg PO TID folic acid 1 mg tablet 1 mg PO DAILY ascorbic acid (vitamin C) 500 mg tablet 1 g PO DAILY@1200 calcium carbonate [Antacid (calcium carbonate)] 200 mg calcium (500 mg) tablet,chewable 400 mg PO BID PRN (Reason: dyspepsia) ferrous sulfate [FeroSul] 325 mg (65 mg iron) tablet 325 mg PO DAILY@1200 amiodarone 200 mg Tablet 200 mg PO DAILY Qty: 0 0RF Eliquis 5 mg tablet 5 mg PO BID Qty: 60 11RF Discontinued pantoprazole 40 mg tablet,delayed release (DR/EC) 40 mg PO QDAY albuterol sulfate 1.25 mg/3 mL solution for nebulization 1.25 mg INHALATION Q4H PRN (Reason: sob/wheezing) melatonin 3 mg capsule 3 mg PO QHS PRN (Reason: sleep) furosemide 40 mg Tablet 40 mg PO BID Qty: 60 0RF potassium chloride 10 mEq tablet extended release 20 meq PO BID Qty: 120 0RF ipratropium-albuterol 0.5 mg-3 mg(2.5 mg base)/3 mL Solution For Nebulization 3 ml inhalation Q6H.RT Qty: 0 0RF No Action tramadol 50 mg tablet 50 mg PO Q8H PRN Referrals / Follow Up: Jan Diamond MD [Non-Staff] - 08/12/23 2:00 pm Leonor Orellana NP, WAREHOUSE REPRESENTATIVE-C [Primary Care Provider] - 08/08/23 1:00 pm (please bring DC packet to appt ) Tesha Wilhelm PA [Med Staff - Adv Practice Prof] - 08/15/23 3:00 pm Disposition Disposition (needs filled in before D/C Order can be placed): Home, Self Care Charges/Coding Visit Charges Inpatient E&M: 76048 Disch Hosp >30min
--- NOTE | 2023-08-01 16:50 | CASEMGMT ---
Social Work SW met with pt, spouse and dgt to discuss discharge plan. Pt is agreeable to planned dc on 08/02/23. Pt to follow up with pump attendant for possible need for cardiac rehab. Pt states she does have a wheeled walker at home. Pt denies any other home going needs at this time. Pt's dgt plans to transport pt home and will pick pt up at 1100. Nursing notified. Discharge Date: 08/01 Discharge Disposition: home with spouse. Follow up with Bed Teacher for possible cardiac rehab. BLACK Berry
[2023-08-01 19:00] VITALS: BP 116/34; PULSE 58; RESP 16; TEMP 37.1
[2023-08-01 21:45] VITALS: BP 136/53; PULSE 62
[2023-08-01] MEDS: Lidocaine 5% Patch 2 PATCH TOPICAL (21:46)
[2023-08-01 21:47] VITALS: BP 136/53; PULSE 62
[2023-08-01] MEDS: traZODone 100 MG Tablet PO (21:47)
[2023-08-01] MEDS: Atorvastatin Calcium 80 MG Tablet PO (21:47)
[2023-08-01] MEDS: traMADol 50 MG Tablet PO (21:54)
[2023-08-02 06:00] VITALS: BMI 34.5
[2023-08-02 06:01] VITALS: PULSE 59
[2023-08-02] MEDS: Metoprolol Tartrate 50 MG Tablet PO (06:01)
[2023-08-02] MEDS: busPIRone 5 MG Tablet PO (06:01)
[2023-08-02 07:38] VITALS: BP 122/43; PULSE 59; RESP 16; TEMP 36.7; O2SAT 96
[2023-08-02] MEDS: Magnesium Chloride 64 MG Delay Rel.Tablet 128 MG PO (08:07)
[2023-08-02] MEDS: DULoxetine Hcl 20 MG Capsule PO (08:08)
[2023-08-02] MEDS: Furosemide 80 MG Tablet PO (08:08)
[2023-08-02] MEDS: Folic Acid 1 MG Tablet PO (08:08)
[2023-08-02] MEDS: Pantoprazole Sodium 40 MG Tablet PO (08:08)
[2023-08-02] MEDS: Clopidogrel Bisulfate 75 MG Tablet PO (08:09)
[2023-08-02] MEDS: Potassium Chloride Oral Tablet 20 MEQ PO (08:09)
[2023-08-02] MEDS: Amiodarone 200 MG Tablet PO (08:09)
[2023-08-02] MEDS: APIXABAN 5 MG TABLET PO (08:09)
== END 2023-08-02 11:04 | disposition home or self-care (01) | DRG 291 ==
PROVIDERS: Admitting Provider Internal Medicine; PCP Nurse Practitioner Family; Visit Provider Internal Medicine
DX: I13.0 Hypertensive heart and chronic kidney disease with heart failure and stage 1 through stage 4 chronic kidney disease, or unspecified chronic kidney disease (principal); I50.41 Acute combined systolic (congestive) and diastolic (congestive) heart failure; D62 Acute posthemorrhagic anemia; J91.8 Pleural effusion in other conditions classified elsewhere; E87.1 Hypo-osmolality and hyponatremia; J98.11 Atelectasis; Z79.01 Long term (current) use of anticoagulants; E66.01 Morbid (severe) obesity due to excess calories; I48.0 Paroxysmal atrial fibrillation; J45.909 Unspecified asthma, uncomplicated; F17.210 Nicotine dependence, cigarettes, uncomplicated; F41.9 Anxiety disorder, unspecified; K21.9 Gastro-esophageal reflux disease without esophagitis; N18.2 Chronic kidney disease, stage 2 (mild); E78.00 Pure hypercholesterolemia, unspecified; I25.10 Atherosclerotic heart disease of native coronary artery without angina pectoris; G47.33 Obstructive sleep apnea (adult) (pediatric); Z95.1 Presence of aortocoronary bypass graft; Z96.82 Presence of neurostimulator; G89.29 Other chronic pain; G47.00 Insomnia, unspecified; Z86.010 Personal history of colon polyps; Z95.5 Presence of coronary angioplasty implant and graft; Z79.02 Long term (current) use of antithrombotics/antiplatelets; Z79.899 Other long term (current) drug therapy; Z68.37 Body mass index [BMI] 37.0-37.9, adult
CPT/HCPCS: 32555; 36415; 71046; 71275; 80048; 80053; 82248; 82274; 83735; 83880; 84100; 84443; 84484; 85014; 85018; 85025; 85027; 85610; 85730; 93005; 93971; 94640; 94660; 94668; 94762; 96365; 96366; 96367; 96375; 97110; 97116; 97162; 97166; 97530; 97535; 97802; 99221; 99252; 99285; 99406; J7040; J7050; Q9967; A4216; G0378; G0463; J0696; J1940; J2405

== ENCOUNTER 2023-09-01 14:55 | Emergency (ER) | payer MEDICARE, OTHER, SELFPAY ==
[2017-12-28 12:03] VITALS: BMI 36.5
[2023-09-01] VITALS (12 sets, daily range): BP systolic 165–201; BP diastolic 73–91; PULSE 67–82; RESP 14–22; TEMP 36.1–36.3; O2SAT 95–98; BMI 34.4
--- NOTE | 2023-09-01 15:09 | EDS_ITS ---
HPI History of Present Illness Chief Complaint: Hypertension Informant: patient Onset/Context/Timing Onset: Today Context: Gradual Onset Timing: Continuous Quality: Throbbing, pressure Location: Diffuse Worsened by: Nothing Relieved by: Rest Narrative Narrative: Patient presents with elevated blood pressures and headaches that began today. Patient dates it is gradually getting worse. Patient states her headache is diffuse over her entire head. Patient describes it as throbbing and pressure. Patient states she feels lightheaded and dizzy. Patient states she has been unable to tolerate her amlodipine. Patient states her pain is better with rest. Patient states nothing makes it worse. Patient denies any fevers or chills. Patient states she has had some postoperative chest pain but denies any shortness of breath. Patient admits to some nausea and vomiting. Patient states her headache radiates down into her neck. Patient states she called her PA at the emergency medicine office and was directed to come to the emergency department. [facility] Medical History Paroxysmal atrial fibrillation Carotid artery disease Atherosclerotic heart disease [place] coronary artery w/angina pectoris Hypertension Hyperlipidemia Chest pain Left carotid stenosis Tobacco dependence Osteoporosis Obstructive sleep apnea Abnormal stress echo NSTEMI, initial episode of care Kidney stones Smoker CPAP (continuous positive airway pressure) dependence Sleep apnea Atrial fibrillation TIA (transient ischemic attack) Stroke/cerebrovascular accident Anxiety and depression Asthma CAD (coronary artery disease) [facility] current use of anticoagulant Nicotine dependence, cigarettes, in remission Fibroadenoma RLS (restless legs syndrome) ERICKA (obstructive sleep apnea) intermttent type 2 heart block GERD (gastroesophageal reflux disease) Obesity Home Medications ?Medication ?Instructions ?Recorded ?Last Taken ?Type atorvastatin 80 mg tablet 80 mg PO QHS cholesterol #90 tabs 01/11/18 07/23/23 Rx duloxetine 20 mg capsule,delayed 20 mg PO DAILY mood 04/27/22 07/23/23 History release apixaban 5 mg tablet (Eliquis) 5 mg PO BID blood thinner #60 tabs 01/25/23 07/24/23 Rx ascorbic acid (vitamin C) 500 mg 1 g PO DAILY@1200 vitamin 07/24/23 07/23/23 History tablet calcium carbonate (Antacid 400 mg PO BID PRN dyspepsia 07/24/23 Unknown History (calcium carbonate)) clopidogrel 75 mg tablet 75 mg PO DAILY anti platelet 07/24/23 07/23/23 History ferrous sulfate 325 mg (65 mg 325 mg PO DAILY@1200 vitamin 07/24/23 07/23/23 History iron) tablet (FeroSul) folic acid 1 mg tablet 1 mg PO DAILY vitamin 07/24/23 Unknown History metoprolol tartrate 50 mg tablet 50 mg PO TID blood pressure 07/24/23 07/24/23 History tramadol 50 mg tablet 50 mg PO Q8H PRN pain 07/24/23 Unknown History buspirone 5 mg tablet 5 mg PO TID #90 tabs 08/01/23 Unknown Rx furosemide 80 mg tablet 80 mg PO DAILY #30 tabs 08/01/23 Unknown Rx magnesium chloride 64 mg 128 mg (2 x 64 mg) PO DAILY #30 08/01/23 Unknown Rx (magnesium chloride) tabs tablet,delayed release (Mag 64) pantoprazole 40 mg tablet,delayed 40 mg PO BID #60 tabs 08/01/23 Unknown Rx release potassium chloride 20 mEq 20 meq PO BID #60 tabs 08/01/23 Unknown Rx tablet,extended release(part/cryst) trazodone 100 mg tablet 100 mg PO QHS PRN insomnia #10 tabs 08/01/23 Unknown Rx amiodarone 200 mg tablet 200 mg PO DAILY heart #1 TAB 08/15/23 Unknown Rx amlodipine 5 mg tablet (Norvasc) 5 mg PO DAILY #30 tabs 09/01/23 Unknown Rx Allergy/AdvReac Type Severity Reaction Status Date / Time doxycycline Allergy Unknown Verified 09/01/23 14:56 metoprolol AdvReac intermittent Verified 09/01/23 14:56 heart block oxycodone AdvReac vomiting Verified 09/01/23 14:56 Family History Brother CAD (coronary artery disease) CABG Mother CAD (coronary artery disease) Diabetes Sister , Age 13 Myocarditis Cancer Sister Cancer Other Dyspnea Fatigue Surgical History S/P CABG x 3 History of thoracentesis S/P insertion of spinal cord stimulator History of left heart catheterization (09/05/19) History of coronary artery stent placement (07/12/18) H/O breast biopsy History of hysterectomy Hx of cholecystectomy H/O carotid endarterectomy (~09/05/12) Social History household members: spouse Smoking Status: Former smoker Tobacco: How many years used: 40 how long ago did patient quit smoking: Had previously quit in 2018 but started again, currently smoking 1 pk/wk. second hand exposure: Yes alcohol intake: never substance use type: does not use caffeine: Yes Type: carbonated beverages Number of servings: 2 ROS ROS ED Constitutional Constitutional ED: Denies chills or fever(s) Eyes Eyes: Reports change in vision; Denies diplopia ENT ENT ED: Reports rhinorrhea; Denies sore throat Cardiovascular Cardiovascular: Reports chest pain; Denies palpitations Respiratory/Chest Respiratory/Chest: Denies cough or dyspnea Gastrointestinal Gastrointestinal: Reports nausea and vomiting Genitourinary Genitourinary ED: Denies dysuria or hematuria Musculoskeletal Musculoskeletal: Reports neck pain; Denies back pain Integumentary Denies abscess or rash Neurologic Neurologic: Reports headache(s); Denies weakness Allergic/Immunologic Allergic/Immunologic ED: Denies mouth swelling or urticaria EXAM Physical Exam Const Vital Signs: 09/01/23 14:55 09/01/23 14:55 09/01/23 15:21 Temperature 97 F L Temperature Source Temporal Pulse Rate 67 77 Respiratory Rate 14 14 Respiratory Effort Normal Non-Labored Respiratory Pattern Normal Blood Pressure 180/79 H 182/79 H Blood Pressure Mean 112 113 Pulse Ox 98 95 Oxygen Delivery Method Room Air Room Air 09/01/23 15:30 09/01/23 15:45 09/01/23 16:00 Temperature Temperature Source Pulse Rate Respiratory Rate Respiratory Effort Respiratory Pattern Blood Pressure 166/81 H 167/81 H 173/73 H Blood Pressure Mean 109 109 106 Pulse Ox Oxygen Delivery Method 09/01/23 16:28 09/01/23 17:27 09/01/23 17:29 Temperature Temperature Source Pulse Rate 69 71 Respiratory Rate 20 H 22 H Respiratory Effort Respiratory Pattern Blood Pressure 183/90 H 183/91 H 201/87 H Blood Pressure Mean 121 121 125 Pulse Ox 97 96 Oxygen Delivery Method Room Air Room Air 09/01/23 18:00 09/01/23 18:15 09/01/23 20:00 Temperature Temperature Source Pulse Rate 78 75 Respiratory Rate 19 H 16 Respiratory Effort Respiratory Pattern Blood Pressure 185/78 H 178/79 H 173/85 H Blood Pressure Mean 113 112 114 Pulse Ox 96 98 Oxygen Delivery Method Room Air Room Air 09/01/23 22:00 Temperature Temperature Source Pulse Rate 82 Respiratory Rate 20 H Respiratory Effort Respiratory Pattern Blood Pressure 175/84 H Blood Pressure Mean 114 Pulse Ox 98 Oxygen Delivery Method Room Air Positive well nourished and well developed General Appearance ED: well developed and NAD HEENT Reports moist mucous membranes Neck supple and no JVD Resp normal respiratory effort and clear to auscultation bilaterally Cardio regular rate and regular rhythm GI non-tender and non-distended Palpation: soft Neuro oriented x3, CN's II-XII intact bilaterally and no sensory deficits noted Sensorium / Orientation: alert Motor Exam: strength 5/5 throughout Psych mental status grossly normal MDM MDM MDM Narrative Medical decision making narrative: Differential diagnosis includes intracranial bleeding, tension headache, hypertensive urgency, hypertensive emergency, cardiac dysrhythmia, cardiac ischemia, electrolyte abnormality, acute kidney injury, and anemia. CT scan of the brain will be obtained to assess for intracranial bleeding. EKG will be obtained to assess for cardiac dysrhythmia and cardiac ischemia. Chest x-ray will be obtained to assess for pleural effusion, congestive heart failure, pneumonia and pneumothorax. CBC will be obtained to assess for leukocytosis and anemia. Basic metabolic profile will be obtained to assess for electrolyte abnormality and renal function. High-sensitivity troponin will be obtained to assess for cardiac ischemia. BNP will be obtained to assess for congestive heart failure. Lab Data Attestation: I reviewed the patient's lab results. Lab results narrative: CBC was reviewed. There is a mild anemia with a hemoglobin of 11.0 and hematocrit 34.1. White blood cell count was slightly low at 3.7. Basic metabolic profile was reviewed. Potassium was low at 3.1. The remainder was within normal limits. High-sensitivity troponin was reviewed and was normal at 20. BNP was reviewed and was slightly elevated at 331.6. This is consistent with previous results. Urinalysis was reviewed. There is no evidence of urinary tract infection or hematuria. Labs: Laboratory Results - last 24 hr 09/01/23 09/01/23 15:25 17:00 WBC 3.7 L RBC 3.59 L Hgb 11.0 L Hct 34.1 L MCV 95.0 MCH 30.6 MCHC 32.3 RDW Std Deviation 47.1 H RDW Coeff of Tan 13.5 Plt Count 224 MPV 8.8 Immature Gran % (Auto) 0.300 Neut % (Auto) 47.4 Lymph % (Auto) 39.2 Bradley % (Auto) 9.8 Eos % (Auto) 3.0 Baso % (Auto) 0.3 Absolute Neuts (auto) 1.7 L Absolute Lymphs (auto) 1.44 Nucleated RBC % 0 Sodium 142 Potassium 3.1 L Chloride 106 Carbon Dioxide 31.0 Anion Gap 5 BUN 11 Creatinine 0.90 Estim Creat Clear Calc 52.89 Est GFR (MDRD) Af Amer 79 Est GFR (MDRD) Non-Af 66 BUN/Creatinine Ratio 12.3 Glucose 109 H Calcium 9.3 Troponin I High Sens 20 B-Natriuretic Peptide 331.6 H Urine Color Yellow Urine Clarity Clear Urine pH 8.0 Ur Specific [place] 1.010 Urine Protein Negative Urine Glucose (UA) Normal Urine Ketones Negative Urine Occult Blood Negative Urine Nitrite Negative Urine Bilirubin Negative Urine Urobilinogen 1 H Ur Leukocyte Esterase Negative Urine RBC 0 SEEN Urine WBC 0-5 SEEN Ur Squamous Epith Cells 0-5 SEEN Urine Bacteria 0 SEEN Urine Mucus 0 SEEN Radiography Diagnostic Testing: Clinical Impression(s) from Imaging Studies Brain CT 09/01/23 15:15 IMPRESSION: Chronic involutional changes of the brain. Electronically Signed: Casey Handy MD at 15:53 EDT , Head CTA 09/01/23 20:17 IMPRESSION: 1. Region of hypoattenuation in the right parietal lobe correlating with prior noncontrast CT suggestive of subacute or chronic ischemia. 2. Mild carotid and vertebral arteriosclerosis. No large vessel occlusion or critical arterial stenosis and no evidence of aneurysm or vascular malformation. RECOMMENDATIONS: Follow-up MRI for further evaluation. Electronically Signed: Terry Hernandez DO at 20:54 EDT , CT scan of the brain was obtained. There is no acute intracranial abnormality. This was interpreted by the radiologist and was also independently reviewed by myself. CTA of the brain was obtained. There is chronic ischemia in the right parietal lobe. There is no aneurysm. There is no large vessel occlusion. There is no AVM. There is no occult bleeding. This was interpreted by the radiologist was also independently reviewed by myself. EKG Initial EKG: Attestation: I personally reviewed and interpreted this EKG as follows: Interpretation: Sinus Rhythm (64) and Non-Specific ST Changes Comments: EKG was obtained. On my independent interpretation, it showed a normal sinus rhythm with a rate of 64. CA interval, QRS interval, and QTc intervals were all normal. [place] was normal. There are no acute ST or T wave changes. Prior EKG tracings: available for review Prior: Unchanged (07/25/2023) Treatment and Re-Evaluation :: Patient was given a dose of clonidine initially. Patient did have an episode of vomiting. There was questionable whether patient vomited up the clonidine tablet. Patient was given Zofran. Patient was given a repeat dose of clonidine. Patient was also given 5 mg of hydralazine IV. Patient was given a dose of oral potassium. Patient's blood pressure did not improve much. Patient was given a repeat dose of hydralazine and a dose of IM Phenergan. CTA of the brain was obtained to assess for aneurysm and occult bleeding. There is no occult bleeding or aneurysm noted. This was interpreted by the radiologist and was also independently reviewed by myself. Patient was still having headache and elevated blood pressure. Patient was also still having some nausea and vomiting. Patient was given Reglan and Benadryl. Patient felt better after this. Patient's blood pressure started to improve. Patient wants to go home. Patient was instructed to rest in a dark quiet room. Patient was instructed to call her emergency medicine tomorrow to see if there is a difference blood pressure medicine that they want to start her on. Patient and family understand and are agreeable with the plan. All questions were answered. Discharge Plan Triage Chief Complaint: Hypertension ED Provider: Prince Basilio Dx/Rx/DC Orders Clinical Impression: Headache, Hypertension Instructions: ED Hypertension, Established, ED Pain, Acute, Uncertain Cause Prescriptions: No Action atorvastatin 80 mg tablet 80 mg PO QHS Qty: 90 3RF duloxetine 20 mg capsule,delayed release(DR/EC) 20 mg PO DAILY Patient Comments: take 1 capsule by mouth once daily amiodarone 200 mg tablet 200 mg PO DAILY Qty: 1 0RF clopidogrel 75 mg tablet 75 mg PO DAILY tramadol 50 mg tablet 50 mg PO Q8H PRN metoprolol tartrate 50 mg tablet 50 mg PO TID folic acid 1 mg tablet 1 mg PO DAILY ascorbic acid (vitamin C) 500 mg tablet 1 g PO DAILY@1200 calcium carbonate [Antacid (calcium carbonate)] 200 mg calcium (500 mg) tablet,chewable 400 mg PO BID PRN (Reason: dyspepsia) ferrous sulfate [FeroSul] 325 mg (65 mg iron) tablet 325 mg PO DAILY@1200 buspirone 5 mg Tablet 5 mg PO TID Qty: 90 0RF Rx Instructions: Take this 3 times a day to control anxiety furosemide 80 mg Tablet 80 mg PO DAILY Qty: 30 0RF Rx Instructions: One daily in the AM magnesium chloride [Mag 64] 64 mg Tablet,Delayed Release (Dr/Ec) 128 mg PO DAILY Qty: 30 0RF potassium chloride 20 mEq Tablet,Er Particles/Crystals 20 meq PO BID Qty: 60 0RF pantoprazole 40 mg Tablet,Delayed Release (Dr/Ec) 40 mg PO BID Qty: 60 0RF trazodone 100 mg Tablet 100 mg PO QHS PRN (Reason: insomnia) Qty: 10 0RF Rx Instructions: Take one at bedtime as needed for insomnia Eliquis 5 mg tablet 5 mg PO BID Qty: 60 11RF amlodipine [Norvasc] 5 mg tablet 5 mg PO DAILY Qty: 30 6RF Primary Care Provider: Leonor Orellana NP Referrals: Leonor Orellana NP, [facility]OL SETTER APPRENTICE-C [Primary Care Provider] - 5-7 Days Tesha Wilhelm PA [Med Staff - Adv Practice Prof] - As soon as possible (Call tomorrow for further instructions regarding your blood pressure medications) Print Language: Macedonian Disposition Disposition: Home, Self Care
--- NOTE | 2023-09-01 15:15 | CT_ITS ---
STUDY: CT BRAIN WITHOUT CONTRAST REASON FOR EXAM: Female, 72 years old. Headache. Hypertension. RADIATION DOSAGE (If Supplied By Facility): CTDIvol = ( 44.99 ) mGy, DLP = ( 812.98 ) mGycm TECHNIQUE: Transaxial CT imaging of the brain was performed without administration of intravenous contrast material. Individualized dose optimization techniques were used for this CT. COMPARISON: No relevant priors. FINDINGS: Normal soft tissue structures. Normal calvarium. There is mild cerebral atrophy with widening of the extra-axial spaces and ventricular dilatation. Focal area of a encephalomalacia in the posterior medial aspect of the right parietal occipital lobe suggestive of old ischemic change. Normal basal ganglia and thalami. Normal brainstem. Normal cerebellum. There is no intracranial hemorrhage. There are no findings of an acute ischemic infarction. Normal visualized paranasal sinuses. CT/Brain/Head without Contrast IMPRESSION: Chronic involutional changes of the brain. Electronically Signed: Casey Handy MD at 15:53 EDT ,
--- NOTE | 2023-09-01 15:16 | EKG12_ITS ---
Test Reason : HTN Blood Pressure : / mmHG Vent. Rate : 064 BPM Atrial Rate : 064 BPM P-R Int : 150 ms QRS Dur : 078 ms QT Int : 486 ms P-R-T Axes : 060 -03 085 degrees QTc Int : 501 ms Normal sinus rhythm Nonspecific ST and T wave abnormality Prolonged QT Abnormal ECG Confirmed by LJ SHI, VARINDER ([id number]), offline editor ALFIE MONTIEL ([id number]) on 09/05/2023 11:10:30 AM Referred By: Confirmed By:VARINDER CALHOUN MD
[2023-09-01] MEDS: cloNIDine HCl 0.1 MG Tablet PO ×2 (15:27→17:03)
[2023-09-01 15:35] LABS: Absolute Lymphocyte Count 1.44 X10^3/uL (0.83-4.51); Absolute Neutrophil Count 1.7 X10^3/uL (2.0-7.7); Basophil# 0.01 X10^3/uL; Basophil% 0.3 % (0-1); Eosinophil# 0.11 X10^3/uL; Hematocrit 34.1 % (37-47); Lymphocyte # 1.44 X10^3/ul (0.83-4.51); Lymphocyte % 39.2 % (19-41); Mean Corp Hgb Conc 32.3 g/dL (32-36); Mean Corpuscular Hgb 30.6 pg (27.0-32.0); Mean Platelet Vol. 8.8 fl (6.2-12.0); Monocyte# 0.36 X10^3/uL; Monocyte% 9.8 % (0-10); NRBC Flagged by Analyzer 0 % (0-5); Neutrophil # 1.74 X10^3/uL (2.7-7.7); Neutrophil % 47.4 % (47-70); Platelet Count 224 K/mm3 (150-450); RBC Distribution Width CV 13.5 % (11.6-14.6); RBC Distribution Width SD 47.1 fl (35.1-43.9); Red Blood Count 3.59 M/mm3 (4.2-5.4); White Blood Count 3.7 K/mm3 (4.4-11.0)
[2023-09-01 15:53] LABS: Anion Gap 5 (5-15); BUN 11 mg/dL (7-18); BUN/Creat Ratio 12.3 RATIO (10-20); Calcium,Total 9.3 mg/dL (8.5-10.1); Chloride 106 mmol/L (98-107); EST Glomerular Filtration Rate 66 mL/min (>60); Est Glom Filt Rate - Afr Amer 79 mL/min (>60); Estimated Creatinine Clearance 52.89 ml/min; Glucose 109 mg/dL (74-106); Potassium 3.1 mmol/L (3.5-5.1); Sodium Level 142 mmol/L (136-145); Troponin-I HS 20 pg/mL (3.0-54.0)
[2023-09-01 16:18] LABS: BNP,B-Type NATRIURETIC PEPTIDE 331.6 pg/mL (0-100)
[2023-09-01] MEDS: Ondansetron 4 MG/2 ML Vial IV (16:37)
[2023-09-01 17:15] LABS: Bacteria 0 SEEN /hpf (None Seen); Mucous, Urine 0 SEEN /hpf (<or=2+); Red Blood Cells-Urine 0 SEEN /hpf (0-5)
[2023-09-01 17:19] LABS: Color, Urine Yellow (Yellow); Glucose, Dipstick Normal (Normal); Ketone-Dipstick Negative (Negative); Leukocyte Esterase-Dipstick Negative /ul (Negative); Nitrite-Dipstick Negative (Negative); Occult Blood-Urine Negative /ul (Negative); Protein-Dipstick Negative (Negative); Urine Bilirubin Dipstick Negative (Negative); Urine Clarity Clear (Clear); Urine Urobilinogen 1 mg/dl (Normal)
[2023-09-01 17:26] LABS: Squamous Epithelial Cells - UA 0-5 SEEN /hpf (5-10); White Blood Cells 0-5 SEEN /hpf (0-5)
[2023-09-01] MEDS: Potassium Chloride Oral Tablet 20 MEQ 40 MEQ PO (17:26)
[2023-09-01] MEDS: hydrALAZINE 20 MG/ML Vial 5 MG IV ×2 (17:45→20:23)
[2023-09-01] MEDS: proMETHazine 25 MG/ML Syringe 6.25 MG IM (19:52)
--- NOTE | 2023-09-01 20:17 | CT_ITS ---
EXAM: CT ANGIOGRAPHY HEAD WITH INTRAVENOUS CONTRAST CLINICAL INDICATION: Headache TECHNIQUE: [place]/head CT angiography protocol performed with intravenous contrast. This CT exam was performed using one or more of the following dose reduction techniques: automated exposure control, adjustment of the mA and/or kV according to patient size, and/or use of iterative reconstruction technique. MIP reconstructed images were created and reviewed. CONTRAST: IV 75mL [id number] COMPARISON: CT head without contrast, 09/01/2023. FINDINGS: RIGHT INTERNAL CAROTID ARTERY: Arteriosclerosis of the cavernous and supracavernous right internal carotid artery without significant stenosis. No aneurysm. RIGHT ANTERIOR CEREBRAL ARTERY: No significant abnormality. No occlusion or significant stenosis. Anterior communicating artery is present. No aneurysm. RIGHT MIDDLE CEREBRAL ARTERY: No significant abnormality. No occlusion or significant stenosis. No aneurysm. RIGHT POSTERIOR CEREBRAL ARTERY: No significant abnormality. No occlusion or significant stenosis. No aneurysm. RIGHT VERTEBRAL ARTERY: Normal as visualized. No significant stenosis at the intradural/visualized segments. No aneurysm. LEFT INTERNAL CAROTID ARTERY: Arteriosclerosis of the cavernous and supracavernous left internal carotid artery without significant stenosis. No aneurysm. LEFT ANTERIOR CEREBRAL ARTERY: No significant abnormality. No occlusion or significant stenosis. No aneurysm. LEFT MIDDLE CEREBRAL ARTERY: No significant abnormality. No occlusion or significant stenosis. No aneurysm. LEFT POSTERIOR CEREBRAL ARTERY: No significant abnormality. No occlusion or significant stenosis. No aneurysm. LEFT VERTEBRAL ARTERY: Arteriosclerosis of the left vertebral artery without stenosis. No aneurysm. BASILAR ARTERY: No significant abnormality. No significant stenosis. No aneurysm. OTHER VASCULATURE: No vascular malformation. BRAIN AND EXTRA-AXIAL SPACES: Region of hypoattenuation in the right parietal lobe correlating with prior noncontrast CT suggestive of subacute or chronic ischemia. BONES/JOINTS: Mild bilateral TMJ arthrosis. ORBITS: Bilateral ocular lens extraction presumptively for the treatment of cataracts. Otherwise, no acute orbital pathology. CT/CTA Head W/WO Contrast IMPRESSION: 1. Region of hypoattenuation in the right parietal lobe correlating with prior noncontrast CT suggestive of subacute or chronic ischemia. 2. Mild carotid and vertebral arteriosclerosis. No large vessel occlusion or critical arterial stenosis and no evidence of aneurysm or vascular malformation. RECOMMENDATIONS: Follow-up MRI for further evaluation. Electronically Signed: Terry Hernandez DO at 20:54 EDT ,
[2023-09-01] MEDS: DiphenhydrAMINE 50 MG/ML Syringe 25 MG IV (21:17)
[2023-09-01] MEDS: Metoclopramide 10 MG/2 ML Vial IV (21:17)
== END 2023-09-01 22:38 | disposition home or self-care (01) ==
PROVIDERS: Emergency Provider Emergency Medicine; PCP Nurse Practitioner Family; Visit Provider Emergency Medicine
DX: R51.9 Headache, unspecified (principal); I10 Essential (primary) hypertension; I25.10 Atherosclerotic heart disease of native coronary artery without angina pectoris; G47.33 Obstructive sleep apnea (adult) (pediatric); Z87.891 Personal history of nicotine dependence; Z86.73 Personal history of transient ischemic attack (TIA), and cerebral infarction without residual deficits; Z95.5 Presence of coronary angioplasty implant and graft; Z95.1 Presence of aortocoronary bypass graft
CPT/HCPCS: 70450; 70496; 80048; 81001; 83880; 84484; 85025; 93005; 96372; 96374; 96375; 96376; 99284; Q9967; A4216; J2405

== ENCOUNTER → 2025-01-03 | Outpatient (CLI) | payer MEDICARE, OTHER, SELFPAY ==
[2017-12-28 12:03] VITALS: BMI 36.5
--- NOTE | 2025-01-03 17:50 | CT_ITS ---
PROCEDURE: LOW DOSE CT LUNG SCREENING 01/03/2025 REASON FOR EXAM: SMOKING TECHNIQUE: Procedure Code: [id number] Modality: CT Procedure: LOW DOSE CT LUNG SCREENING Coronal and Sagittal reconstruction series were provided. One or more dose reduction techniques were used (e.g., Automated exposure control, adjustment of the mA and/or kV according to patient size, use of iterative reconstruction technique). REFERENCE LINK: [facility] Lung-RADS RADIATION DOSE SUMMARY: CTDlvol: 3.02 mGy DLP: 107.59 mGycm COMPARISON: CT of the chest following PE protocol dated 07/24/2023. FINDINGS: Pulmonary Nodules: No suspicious pulmonary nodule. Nodular fusiform 8 mm nodular opacity in the left upper lobe (image number 80 series 2) at the bifurcation of pulmonary arterial branches is noted. 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 This is stable since previous exam and should not be confused with a pulmonary nodule. Hardware:Status post median sternotomy for CABG. Neurostimulator leads project over the T7 through T9 level. Lymph Nodes:No axillary supraclavicular or hilar lymphadenopathy. Mediastinum: Small hiatal hernia. Base of the neck is normal. Heart and Vasculature:Mild cardiomegaly. No pericardial effusion. Atherosclerosis of the aorta. No aneurysm. Coronary Artery Calcifications: Present. Status post CABG. Lungs and Airways: The lungs are clear. There is no focal consolidation. Pleura:No effusion or pneumothorax Upper Abdomen:Vascular calcifications. No hydronephrosis. Bones:Multilevel degenerative disc disease. No acute fracture. Status post cholecystectomy. CT/Low Dose CT Lung Screening IMPRESSION: No acute cardiopulmonary process. No suspicious pulmonary nodule or mass. Coronary artery calcification (CAC) is present. Status post median sternotomy for CABG. Lung-RADS Category: 2 BENIGN (BASED ON IMAGING FEATURES OR INDOLENT BEHAVIOR). RECOMMEND 12-MONTH SCREENING LDCT. 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 Reading Location: [id number]
== END | disposition home or self-care (01) ==
LOC: CT 17:48
PROVIDERS: PCP Nurse Practitioner Family; Referring Provider Nurse Practitioner Acute Care; Visit Provider Nurse Practitioner Acute Care
DX: Z12.2 Encounter for screening for malignant neoplasm of respiratory organs (principal); F17.210 Nicotine dependence, cigarettes, uncomplicated
CPT/HCPCS: 71271

== ENCOUNTER → 2025-01-07 | Outpatient (CLI) | payer MEDICARE, OTHER, SELFPAY ==
[2017-12-28 12:03] VITALS: BMI 36.5
--- OUTSIDE RECORDS SUMMARY | 2025-01-07 20:16 | XMS RPT_ITS | CCD ---
Author Organization [facility] CliniSymo Care Team Providers Care Fringe Maker Name Role Phone REFERRING, PHY WO ID Unavailable Unavailable LEONOR ORELLANA Unavailable Unavailable KATY NUNES Unavailable Unavailable Leonor Orellana Primary Care Provider [phone] Manjinder Toney Unavailable Reyna BOWLES Leonor Primary Care Provider Manjinder Toney Unavailable REYNA MEYER-WILBUR, [place] Primary Care Physician REYNA MEYER-WILBUR [place] Primary Care Physician REYNA SOLAR DESIGNER/INSTALLER-WILBUR, [place] Primary Care Physician Manjinder Toney MD Unavailable [phone] REYNA MEYER-WILBUR, [place] Primary Care Physician Reyna TRAVELING NURSE, TRAVELING NURSE-C Leonor Primary Care Provider Reyna GODOY NP-C Leoonr Referring Provider [phone] [phone] Augustine GODOY, TRAVELING NURSE-C Shannon Attending Provider [phone] Dr. Lucien Louis Attending Provider Leonor Orellnaa CNP Primary Care Provider Manjinder Toney MD Unavailable [phone] Reyna BOWLES Leonor Primary Care Provider Reyna TRAVELING NURSE, TRAVELING NURSE-C Leonor Primary Care Provider Reyna TRAVELING NURSE, TRAVELING NURSE-C Leonor Referring Provider Erica GODOY, TRAVELING NURSE-C Ifeanyi King Attending Provider [phone] Reyna TRAVELING NURSE, TRAVELING NURSE-C Leonor Primary Care Provider Reyna TRAVELING NURSE, TRAVELING NURSE-C Leonor Referring Provider [phone] Augustine TRAVELING NURSE, TRAVELING NURSE-C Shannon Attending Provider MARK Aguilar Referring Provider MARK Aguilar Other Provider Dr. Koko Summers Attending Provider Reyna BOWLES, [place] Primary Care Provider P[place]one SOLAR DESIGNER/INSTALLER.PROGRESSIVE ASSEMBLER AND FITTER, Mary Unavailable Markus SHI, Jan Castro Unavailable Azeem MILAN, Johnny Unavailable Jose SHI, Luis Ochoa Unavailable MARKUS SHI, DR JAN Castro Attending Unavaila ble LORSON SOLAR DESIGNER/INSTALLER-PROGRESSIVE ASSEMBLER AND FITTER, [facility] Care Unavail able LORSON SOLAR DESIGNER/INSTALLER-PROGRESSIVE ASSEMBLER AND FITTER, LEONOR Attending Unavail able LORSON SOLAR DESIGNER/INSTALLER-PROGRESSIVE ASSEMBLER AND FITTER, [facility] Care Unavail able LORSON SOLAR DESIGNER/INSTALLER-PROGRESSIVE ASSEMBLER AND FITTER, [place] Attending Unavail able LORSON SOLAR DESIGNER/INSTALLER-PROGRESSIVE ASSEMBLER AND FITTER, [facility] Care Unavail able VACCARELLI ÁLVARO, SAMMY Attending Unavailab le LORSON SOLAR DESIGNER/INSTALLER-PROGRESSIVE ASSEMBLER AND FITTER, [facility] Care Unavail able LORSON SOLAR DESIGNER/INSTALLER-PROGRESSIVE ASSEMBLER AND FITTER, LEONOR Attending Unavail able LORSON SOLAR DESIGNER/INSTALLER-PROGRESSIVE ASSEMBLER AND FITTER, [facility] Care Unavail able LORSON SOLAR DESIGNER/INSTALLER-PROGRESSIVE ASSEMBLER AND FITTER, LEONOR Attending Unavail able LORSON SOLAR DESIGNER/INSTALLER-PROGRESSIVE ASSEMBLER AND FITTER, [place] Primary Care Unavail able LORSON SOLAR DESIGNER/INSTALLER-PROGRESSIVE ASSEMBLER AND FITTER, LEONOR Attending Unavail able LORSON SOLAR DESIGNER/INSTALLER-PROGRESSIVE ASSEMBLER AND FITTER, [facility] Care Unavail able Lorson SOLAR DESIGNER/INSTALLER.PROGRESSIVE ASSEMBLER AND FITTER, [place] Primary Care Provider Feng SHI, Manjinder Schneider Unavailable MONICA MILLER Referring Un[facility] Unavailable DUKE CARRION Attending Unavailable FADUMOSON [facility] Care Unavailable DUKE CARRION Referring Unavailable LORSON, [facility] Care Unavailable INOCENCIA AARON Referring Unavailable AME MACHADO Attending Unavailable LORSON [facility] Care Unavailable LORSON SOLAR DESIGNER/INSTALLER-PROGRESSIVE ASSEMBLER AND FITTER, [place] Primary Care Unavail able LORSON SOLAR DESIGNER/INSTALLER-PROGRESSIVE ASSEMBLER AND FITTER, LEONOR Attending Unavail able LORSON SOLAR DESIGNER/INSTALLER-PROGRESSIVE ASSEMBLER AND FITTER, LEONOR Attending Unavail able LORSON SOLAR DESIGNER/INSTALLER-PROGRESSIVE ASSEMBLER AND FITTER, LEONOR Primary Care Unavail able LORSON SOLAR DESIGNER/INSTALLER-PROGRESSIVE ASSEMBLER AND FITTER, [place] Primary Care Unavail able LORSON SOLAR DESIGNER/INSTALLER-PROGRESSIVE ASSEMBLER AND FITTER, LEONOR Attending Unavail able LORSON SOLAR DESIGNER/INSTALLER-PROGRESSIVE ASSEMBLER AND FITTER, [place] Primary Care Unavail able LORSON SOLAR DESIGNER/INSTALLER-PROGRESSIVE ASSEMBLER AND FITTER, LEONOR Attending Unavail able Tesha Aguilar Attending Unavail able Lorson TRAVELING NURSE, Leonor Referring Unavailable Lorson TRAVELING NURSE, [place] Primary Care Unavailable Lorson TRAVELING NURSE, [place] Primary Care Unavailable Lorson TRAVELING NURSE, Leonor Referring Unavailable Javier Wilhelm Attending Unavailable Bradshaw TRAVELING NURSE, Shannon Referring Unavailable Lorson TRAVELING NURSE, [place] Primary Care Unavailable Bradshaw TRAVELING NURSE, Shannon Attending Unavailable Bradshaw TRAVELING NURSE, Shannon Referring Unavailable Lorson TRAVELING NURSE, [place] Primary Care Unavailable Augustine TRAVELING NURSE, Shannon Attending Unavailable Melonie FLORES, Tesha Jean Attending Unavail able Melonie FLORES, Tesha Jean Referring Unavail able Lorson TRAVELING NURSE, [place] Primary Care Unavailable Tesha Aguilar Attending Unavail able Lorson TRAVELING NURSE, [place] Primary Care Unavailable Lorson TRAVELING NURSE, Leonor Referring Unavailable Tesha Aguilar Attending Unavail able Lorson TRAVELING NURSE, Leonor Referring Unavailable Lorson TRAVELING NURSE, [place] Primary Care Unavailable Augustine TRAVELING NURSE, Shannon Attending Unavailable Lorson TRAVELING NURSE, Leonor Referring Unavailable Lorson TRAVELING NURSE, [place] Primary Care Unavailable Allergies Allergy Classification Reported Allergen(s) Allergy Type Date of Onset Reaction(s) Facility Doxycycline (8 sources) Doxycycline Drug Allergy 0 Unknown [facility] Metoprolol (8 sources) Metoprolol Drug Allergy 0 Unknown [facility] Opioid Agonists (8 sources) oxyCODONE Drug Allergy 0 Unknown [facility] (20 sources) Doxycycline; Translations: [doxycycline] Drug Allergy 0 Unknown, Vomiting (disorder) [facility] (20 sources) Metoprolol; Translations: [metoprolol] Drug Allergy 0 Unknown [facility] (20 sources) oxyCODONE; Translations: [oxycodone] Drug Allergy 0 Unknown [facility] (1 source) Amiodarone Drug Allergy 5 [facility] (1 source) Doxycycline Drug Allergy 5 [facility] (1 source) Metoprolol Drug Allergy 5 [facility] (1 source) oxyCODONE Drug Allergy [facility] Medications Current Medications Medication Drug Class(es) Dates Sig (Normalized) Sig (Original) acetaminophen 500 mg oral tablet (20 sources) Start: 08-12-2023 take 2 tablets by mouth every six hours as needed acetaminophen (TYLENOL) 500 mg tablet Take 2 tablets by mouth every 6 hours as needed for pain. 08/12/2023 Active Start: 07-18-2023 End: 08-12-2023 take 2 tablets by mouth four times daily acetaminophen (TYLENOL) 500 mg tablet Take 2 tablets by mouth four times daily. 0 07/18/2023 08/12/2023 Discontinued (Adjust Sig - Block E-Cancel) Start: 03-22-2023 take 1 mg by mouth e very six hours as needed for pain Tylenol Extra Strength 500 mg oral tablet mg = tab(s), Oral, q6hr, PRN as needed for pain, 0 Refill(s) Start Date: 03/22/23 Status: Ordered Medication Dispense Status: Completed Total Allowed Fills: 1 Fills Dispensed: 0 End: 07-18-2023 take 2 tablets by mouth every eight hours as needed acetaminophen (TYLENOL EXTRA STRENGTH) 500 mg tablet Take 1,000 mg by mouth every 8 hours as needed for pain. 0 07/18/2023 Discontinued amiodarone hydrochloride 200 mg oral tablet (20 sources) Antiarrhythmic Start: 07-18-2023 End: 11-09-2023 amiodarone 200 mg oral tablet Dose : 200 mg = 1 tab(s), qDay, TAKE 1 TABLET BY MOUTH TWICE A DAY FOR 5 DAYS THEN 1 TABLEDT ONCE A DAY UNTIL FINISHED Start Date: 08/08/23 Status: Ordered Medication Dispense Status: Completed Total Allowed Fills: 1 Fills Dispensed: 0 amLODIPine 10 mg oral tablet (20 sources) Dihydropyridine Calcium Channel Melanie Start: 12-21-2023 amLODIPine 10 mg oral tablet Dose : 10 mg = 1 tab(s), Oral, qDay, # 30 tab(s), 0 Refill(s), Pharmacy: [facility]/pharmacy #[id number], 152.5, cm, 12/21/23 10:53:00 EST, Height, kg, 12/21/23 10:53:00 EST, Dosing Weight Start Date: 12/21/23 Status: Ordered Medication Dispense Status: Completed Quantity: 30.0 Unit: tab(s) Total Allowed Fills: 1 Fills Dispensed: 0 Start: 12-05-2023 amLODIPine 10 mg oral tablet Dose : 10 mg = 1 tab(s), Oral, qDay, # 90 tab(s), 3 Refill(s), Pharmacy: [facility], 152.5, cm, 09/20/23 11:08:00 EDT, Height, kg, 09/20/23 11:08:00 EDT, Dosing Weight Start Date: 12/05/23 Status: Ordered Start: 02-21-2020 End: 08-06-2022 amLODIPine 10 mg oral tablet Dose : 10 mg = 1 tab(s), Oral, Daily, # 90 tab(s), 3 Refill(s), Pharmacy: [facility], 152, cm, 08/31/22 10:33:00 EDT, Height, kg, 08/31/22 10:33:00 EDT, Dosing Weight Start Date: 09/08/22 Status: Ordered Start: 08-03-2018 End: 02-21-2020 take 5 mg by mouth once daily Amlodipine Discontinued 5 MG PO daily 45 90 August 03, 2018 10:52am February 21, 2020 4:09pm Start: 05-16-2017 End: 08-03-2018 take 10 mg by mouth once daily Amlodipine Discontinued 10 MG PO daily 90 90 January 11, 2018 3:11pm August 03, 2018 10:53am Comment on above: Take 10 mg by mouth once daily. apixaban 5 mg oral tablet (20 sources) Factor Xa Inhibitor Start: 07-18-2024 Eliquis 5 mg oral tablet Dose : 5 mg = 1 tab(s), Oral, BID, # 180 tab(s), 0 Refill(s), 82.3 Start Date: 07/18/24 Status: Ordered Medication Dispense Status: Completed Quantity: 180.0 Unit: tab(s) Total Allowed Fills: 1 Fills Dispensed: 0 Start: 12-21-2023 Eliquis 5 mg o ral tablet Dose : 5 mg = 1 tab(s), Oral, BID, take 1 tablet by mouth twice a day, # 60 tab(s), 0 Refill(s), Pharmacy: [facility]/pharmacy #[id number], 152.5, cm, 12/21/23 10:53:00 EST, Height, 80.1, kg, 12/21/23 10:53:00 EST, Dosing Weight Start Date: 12/21/23 Status: Ordered Start: 12-05-2023 Eliquis 5 mg o ral tablet Dose : 5 mg = 1 tab(s), Oral, BID, take 1 tablet by mouth twice a day, # 180 tab(s), 3 Refill(s), Pharmacy: [facility], 152.5, cm, 09/20/23 11:08:00 EDT, Height, 81.6, kg, 09/20/23 11:08:00 EDT, Dosing Weight Start Date: 12/05/23 Status: Ordered Start: 03-22-2023 take 1 tablet by danii th twice daily Eliquis 5 mg oral tablet take 1 tablet by mouth twice a day Start Date: 03/22/23 Status: Ordered Start: 01-18-2023 End: 01-25-2023 take 1 tablet by mouth twice daily Eliquis 5 mg oral tablet take 1 tablet by mouth twice a day Start Date: 03/22/23 Status: Ordered ascorbic acid 500 mg oral capsule (20 sources) Vitamin C Start: 08-08-2023 take 1 mg by mouth once daily ascorbic acid 500 mg oral capsule mg = cap(s), Oral, qDay, 0 Refill(s) Start Date: 08/08/23 Status: Ordered Medication Dispense Status: Completed Total Allowed Fills: 1 Fills Dispensed: 0 Start: 07-19-2023 End: 10-17-2023 take 1 tablet by mouth once daily ascorbic acid, vitamin C, (VITAMIN C) 500 mg tablet Take 1 tablet by mouth once daily. 30 tablet 2 07/19/2023 Active atorvastatin 80 mg oral tablet (20 sources) HMG-CoA Reductase Inhibitor Start: 07-18-2024 Lipitor 80 mg oral tablet Dose : 80 mg = 1 tab(s), Oral, qDay, # 90 tab(s), 3 Refill(s), Pharmacy: [facility], 152, cm, 07/18/24 11:30:00 EDT, Height, kg, 07/18/24 11:30:00 EDT, Dosing Weight Start Date: 07/18/24 Status: Ordered Medication Dispense Status: Completed Quantity: 90.0 Unit: tab(s) Total Allowed Fills: 4 Fills Dispensed: 0 Start: 08-16-2023 Lipitor 80 mg oral tablet Dose : 80 mg = 1 tab(s), Oral, qDay, # 90 tab(s), 3 Refill(s), Pharmacy: [facility], 153.5, cm, 08/16/23 14:51:00 EDT, Height, kg, 08/16/23 14:51:00 EDT, Dosing Weight Start Date: 08/16/23 Status: Ordered Quantity: 90.0 Unit: tab(s) Repeat number: 4 Start: 05-16-2017 End: 08-06-2022 Lipitor 80 mg oral tablet Do se : 80 mg = 1 tab(s), Oral, qDay, # 90 tab(s), 3 Refill(s), Pharmacy: [facility], 152, cm, 08/31/22 10:33:00 EDT, Height, kg, 08/31/22 10:33:00 EDT, Dosing Weight Start Date: 09/08/22 Status: Ordered Comment on above: Take 80 mg by mouth once daily. busPIRone hydrochloride 10 mg oral tablet (17 sources) Start: 07-18-2024 busPIRone 10 mg oral tablet Dose : 10 mg = 1 tab(s), Oral, TID, # 270 tab(s), 3 Refill(s), Pharmacy: [facility], 152, cm, 07/18/24 11:30:00 EDT, Height, kg, 07/18/24 11:30:00 EDT, Dosing Weight Start Date: 07/18/24 Status: Ordered Medication Dispense Status: Completed Quantity: 270.0 Unit: tab(s) Total Allowed Fills: 4 Fills Dispensed: 0 Start: 05-21-2024 busPIRone 5 mg oral tablet Dose : 5 mg = 1 tab(s), Oral, TID, # 90 tab(s), 3 Refill(s), Pharmacy: [facility]/pharmacy #[id number], 153, cm, 04/18/24 11:02:00 EST, Height, kg, 04/18/24 11:02:00 EST, Dosing Weight Start Date: 05/21/24 Status: Ordered Quantity: 90.0 Unit: tab(s) Repeat number: 4 Start: 12-21-2023 busPIRone 5 mg oral tablet Dose : 5 mg = 1 tab(s), Oral, TID, # 90 tab(s), 3 Refill(s), Pharmacy: [facility], 152.5, cm, 12/21/23 10:53:00 EST, Height, kg, 12/21/23 10:53:00 EST, Dosing Weight Start Date: 12/21/23 Status: Ordered Start: 08-16-2023 End: 12-11-2023 busPIRone 5 mg oral tablet D ose : 5 mg = 1 tab(s), Oral, TID, # 90 tab(s), 0 Refill(s), [id number], 152.5, cm, 09/20/23 11:08:00 EDT, Height, kg, 09/20/23 11:08:00 EDT, Dosing Weight Start Date: 11/11/23 Stop Date: 12/11/23 Status: Ordered cetirizine hydrochloride 10 mg oral tablet (1 source) Histamine-1 Receptor Antagonist Start: 06-03-2023 Zyrtec 10 mg oral tablet Dose : 10 mg = 1 tab(s), Oral, qDay, # 30 tab(s), 0 Refill(s), Pharmacy: [facility]/pharmacy #[id number], Episodic lightheadedness Eustachian tube dysfunction, 153.5, cm, 06/03/23 9:53:00 EDT, Height, kg, 06/03/23 9:53:00 EDT, Dosing Weight Start Date: 06/03/23 Status: Ordered cholecalciferol 0.05 mg oral capsule (15 sources) Vitamin D Start: 08-08-2023 cholecalcifero l 50 mcg (2000 intl units) oral capsule Dose : 50 mcg = 1 cap(s), Oral, Daily, # 30 cap(s), 0 Refill(s), other reason (Rx) Start Date: 08/08/23 Status: Ordered Medication Dispense Status: Completed Quantity: 30.0 Unit: cap(s) Total Allowed Fills: 1 Fills Dispensed: 0 Start: 04-05-2023 cholecalcifero l 1250 mcg (50,000 intl units) oral capsule Dose : 1,250 mcg = 1 cap(s), Oral, Tuesday, # 12 cap(s), 3 Refill(s), Pharmacy: [facility], 153.5, cm, 03/22/23 15:00:00 EST, Height, kg, 03/22/23 15:00:00 EST, Dosing Weight Start Date: 04/05/23 Status: Ordered Start: 03-16-2023 cholecalcifero l 1250 mcg (50,000 intl units) oral capsule Dose : 1,250 mcg = 1 cap(s), Oral, Tuesday, # 12 cap(s), 3 Refill(s), Pharmacy: [facility], 153.3, cm, 11/16/22 10:51:00 EDT, Height, kg, 11/16/22 10:51:00 EDT, Dosing Weight Start Date: 03/16/23 Status: Ordered Start: 12-21-2022 take 1250 ug by mout h every week Cholecalciferol (Vitamin D3) Active 1250 MCG PO EVERY WEEK December 21, 2022 1:00am Start: 11-16-2022 cholecalcifero l 1250 mcg (50,000 intl units) oral capsule Dose : 1,250 mcg = 1 cap(s), Oral, Tuesday, # 12 cap(s), 3 Refill(s), Pharmacy: [facility], 153.3, cm, 11/16/22 10:51:00 EDT, Height, kg, 11/16/22 10:51:00 EDT, Dosing Weight Start Date: 11/16/22 Status: Ordered Start: 06-30-2022 cholecalcifero l 1250 mcg (50,000 intl units) oral capsule Dose : 1,250 mcg = 1 cap(s), Oral, Tuesday, # 12 cap(s), 3 Refill(s), Pharmacy: [facility], 152.5, cm, 06/08/22 11:13:00 EDT, Height Start Date: 06/30/22 Status: Ordered clopidogrel 75 mg oral tablet (20 sources) [id number] Platelet Inhibitor Start: 07-19-2023 End: 07-18-2024 clopidogrel 75 mg oral tablet Dose : 75 mg = 1 tab(s), Oral, qDay, TAKE 1 TABLET BY MOUTH EVERY DAY, # 30 tab(s), 0 Refill(s), Pharmacy: [facility]/pharmacy #[id number], 152.5, cm, 12/21/23 10:53:00 EST, Height, kg, 12/21/23 10:53:00 EST, Dosing Weight Start Date: 12/21/23 Status: Ordered Medication Dispense Status: Completed Quantity: 30.0 Unit: tab(s) Total Allowed Fills: 1 Fills Dispensed: 0 Start: 05-16-2017 End: 01-18-2023 take 75 mg by mouth once daily Clopidogrel Discontinue d 75 MG PO daily 90 December 19, 2017 2:11pm January 18, 2023 2:12pm Comment on above: Take 75 mg by mouth once daily. DME MISCellaneous (12 sources) Start: 02-17-2022 DME MISCellaneous See Instructions, 2 pairs compression stockings., # 1 EA, 0 Refill(s), Pharmacy: [facility] #[id number], 152.5, cm, 02/16/22 13:04:00 EST, Height, 88.9 Start Date: 02/17/22 Status: Ordered Medication Dispense Status: Completed Quantity: 1.0 Unit: EA Total Allowed Fills: 1 Fills Dispensed: 0 Start: 02-17-2022 DME MISCellane ous See Instructions, 2 pairs compression stockings., # 1 EA, 0 Refill(s), Pharmacy: [facility] #[id number], 152.5, cm, 02/16/22 13:04:00 EST, Height, 88.9 Start Date: 02/17/22 Status: Ordered Quantity: 1.0 Unit: EA Repeat number: 1 Start: 02-17-2022 DME MISCellane ous See Instructions, 2 pairs compression stockings., # 1 EA, 0 Refill(s), Pharmacy: [facility] #[id number], 152.5, cm, 02/16/22 13:04:00 EST, Height, 88.9 Start Date: 02/17/22 Status: Ordered docusate sodium 50 mg / sennosides, correction 8.6 mg oral tablet (15 sources) Start: 07-18-2023 End: 07-25-2023 take 1 tablet by mouth twice daily senna-docusate (SENNA-S) 8.6-50 mg per tablet Take 1 tablet by mouth two times a day for 7 days. 14 tablet 0 07/18/2023 07/25/2023 Active DULoxetine 20 mg delayed release oral capsule (20 sources) Serotonin and Norepinephrine Reuptake Inhibitor Start: 10-17-2024 DULoxetine 20 mg oral delayed release capsule Dose : 20 mg = 1 cap(s), Oral, qDay, # 90 cap(s), 3 Refill(s), Pharmacy: [facility], 152, cm, 10/17/24 11:32:00 EDT, Height, kg, 10/17/24 11:32:00 EDT, Dosing Weight Start Date: 10/17/24 Status: Ordered Medication Dispense Status: Completed Quantity: 90.0 Unit: cap(s) Total Allowed Fills: 4 Fills Dispensed: 0 Start: 12-21-2023 DULoxetine 20 mg oral delayed release capsule Dose : 20 mg = 1 cap(s), Oral, qDay, # 90 cap(s), 3 Refill(s), Pharmacy: [facility], 152.5, cm, 12/21/23 10:53:00 EST, Height, kg, 12/21/23 10:53:00 EST, Dosing Weight Start Date: 12/21/23 Status: Ordered Quantity: 90.0 Unit: cap(s) Repeat number: 4 Start: 10-14-2023 DULoxetine 20 mg oral delayed release capsule Dose : 20 mg = 1 cap(s), Oral, qDay, # 90 cap(s), 0 Refill(s), Pharmacy: [facility], 152.5, cm, 09/20/23 11:08:00 EDT, Height, kg, 09/20/23 11:08:00 EDT, Dosing Weight Start Date: 10/14/23 Status: Ordered Start: 04-05-2023 DULoxetine 20 mg oral delayed release capsule Dose : 20 mg = 1 cap(s), Oral, qDay, # 90 cap(s), 3 Refill(s), Pharmacy: [facility], 153.5, cm, 03/22/23 15:00:00 EST, Height, kg, 03/22/23 15:00:00 EST, Dosing Weight Start Date: 04/05/23 Status: Ordered Start: 03-16-2023 DULoxetine 20 mg oral delayed release capsule Dose : 20 mg = 1 cap(s), Oral, qDay, sent in absence of PCP, # 90 cap(s), 3 Refill(s), Pharmacy: [facility], 153.3, cm, 11/16/22 10:51:00 EDT, Height, kg, 11/16/22 10:51:00 EDT, Dosing Weight Start Date: 03/16/23 Status: Ordered Start: 09-08-2022 DULoxetine 20 mg oral delayed release capsule Dose : 20 mg = 1 cap(s), Oral, qDay, # 90 cap(s), 3 Refill(s), Pharmacy: [facility], 152, cm, 08/31/22 10:33:00 EDT, Height, kg, 08/31/22 10:33:00 EDT, Dosing Weight Start Date: 09/08/22 Status: Ordered Start: 04-27-2022 take 20 mg by mouth once daily Duloxetine Active 20 MG PO DAILY April 27, 2022 12:00am Start: 10-27-2021 End: 06-23-2022 DULoxetine 20 mg oral delaye d release capsule Dose : 20 mg = 1 cap(s), Oral, qDay, # 30 cap(s), 3 Refill(s), Pharmacy: [facility] #[id number], 152.5, cm, 02/23/22 10:26:00 EST, Height Start Date: 02/23/22 Stop Date: 06/23/22 Status: Ordered Comment on above: Take 20 mg by mouth once daily. Patient reports taking duloxetine HCL DR (Gary) 1 (one) capsule by mouth, daily. ferrous sulfate 325 mg oral tablet (20 sources) Start: 07-19-19 End: 10-17-19 take 1 tablet by mouth once daily ferrous sulfate 325 mg (65 mg iron) tablet Take 1 tablet by mouth once daily. 30 tablet 2 07/19/2023 10/17/2023 Active fluticasone propionate 0.05 mg/actuat metered dose nasal spray (7 sources) Corticosteroid Start: 06-03-19 take 100 ug nasal route twice daily Flonase 50 mcg/inh nasal spray 100 mcg Dose = 2 spray(s), Nostril, each, BID, # 15.8 mL, 0 Refill(s), Pharmacy: [facility]/pharmacy #[id number], Episodic lightheadedness Eustachian tube dysfunction, 153.5, cm, 06/03/23 9:53:00 EDT, Height, kg, 06/03/23 9:53:00 EDT, Dosing Weight Start Date: 06/03/23 Status: Ordered Medication Dispense Status: Completed Quantity: 15.8 Unit: mL Total Allowed Fills: 1 Fills Dispensed: 0 Indications: Unspecified Eustachian tube disorder, unspecified ear; Dizziness and giddiness; furosemide 40 mg oral tablet (20 sources) Loop Diuretic Start: 04-19-19 furosemide 40 mg oral tablet Dose : 40 mg = 1 tab(s), Oral, qDay, # 90 tab(s), 3 Refill(s), Pharmacy: [facility], 153, cm, 04/18/24 11:02:00 EST, Height, kg, 04/18/24 11:02:00 EST, Dosing Weight Start Date: 04/18/24 Status: Ordered Medication Dispense Status: Completed Quantity: 90.0 Unit: tab(s) Total Allowed Fills: 4 Fills Dispensed: 0 Start: 04-05-2023 End: 08-21-2023 take 1 tablet by mouth twice daily, then take 1 tablet by mouth once daily furosemide (LASIX) 40 mg tablet Take 1 tablet by mouth two times a day for 4 days, THEN 1 tablet once daily. 38 tablet 07/18/2023 Active Start: 02-02-2022 End: 07-18-2023 take 40 mg by mouth once daily Furosemide Active 40 MG PO DAILY February 02, 2022 1:00am Start: 05-16-2017 End: 12-21-2022 take 20 mg by mouth once daily Furosemide Discontinued 20 MG PO DAILY July 11, 2018 6:44pm December 21, 2022 2:59pm Comment on above: Take 20 mg by mouth once daily. ginkgo biloba extract 60 mg oral capsule (8 sources) Start: 06-08-2022 Ginkgo Biloba 60 mg oral capsule 0 Refill(s) Start Date: 06/08/22 Status: Ordered Start: 04-27-2022 End: 12-21-2022 take 40 mg by mouth once daily Ginkgo Biloba Discontin ued 40 MG PO DAILY April 27, 2022 12:00am December 21, 2022 3:00pm give with meal/snack Start: 04-27-2022 End: 12-21-2022 take 40 mg by mouth once daily Ginkgo Biloba Discontin ued 40 MG PO DAILY April 26, 2022 11:00pm December 21, 2022 2:00pm give with meal/snack Start: 04-27-2022 take 40 mg by mouth once daily Ginkgo Biloba Active 40 MG PO DAILY April 27, 2022 12:00am give with meal/snack 24 hr isosorbide mononitrate 60 mg extended release oral tablet (20 sources) Nitrate Vasodilator Start: 02-23-2018 End: 08-26-2023 take 60 mg by mouth once daily Isosorbide Mononitrate Active 60 MG PO DAILY February 23, 2018 11:30am Start: 06-10-2017 End: 02-23-2018 take 60 mg by mouth twice daily Isosorbide Mononitrate Discontinued 60 MG PO TWICE A DAY 60 June 10, 2017 5:14pm January 11, 2018 3:12pm Start: 05-16-2017 End: 07-18-2023 take 60 mg by mouth once daily in the morning Isosorbide Mononitrate Discontinued 60 MG PO EVERY MORNING May 16, 2017 12:00am June 10, 2017 5:14pm Comment on above: Take 60 mg by mouth once daily. magnesium chloride 64 mg magnesium tab (10 sources) take 2 tablets by mouth once daily magnesium chloride 64 mg magnesium tab Take 2 tablets by mouth once daily. Active take 2 tablets by mouth once ana ly magnesium chloride 64 mg magnesium tab Take 2 tablets by mouth once daily. 0 Active Magnesium Chloride With Calcium 64 mg-112 mg oral delayed release tablet (4 sources) Start: 08-16-2023 take 1 tablet by mouth twice daily Magnesium Chloride With Calcium 64 mg-112 mg oral delayed release tablet Dose = 1 tab(s), Oral, BID, # 60 tab(s), 0 Refill(s), Pharmacy: [facility]/pharmacy #[id number], 153.5, cm, 08/16/23 14:51:00 EDT, Height, kg, 08/16/23 14:51:00 EDT, Dosing Weight Start Date: 08/16/23 Status: Ordered Start: 08-08-2023 End: 08-02-2024 take 1 tablet by mouth twice daily Magnesium Chloride With Calcium 64 mg-112 mg oral delayed release tablet Dose = 1 tab(s), Oral, BID, # 180 tab(s), 3 Refill(s), Pharmacy: [facility], 153.5, cm, 08/08/23 13:05:00 EDT, Height, kg, 08/08/23 13:05:00 EDT, Dosing Weight Start Date: 08/08/23 Stop Date: 08/02/24 Status: Ordered metoprolol tartrate 50 mg oral tablet (20 sources) beta-Adrenergic Melanie Start: 07-29-2024 End: 07-24-2025 Metoprolol Tartrate 50 mg oral tablet Dose : 50 mg = 1 tab(s), Oral, BID, Clarifying previous rx. PLEASE HOLD FOR SBP Start Date: 07/29/24 Stop Date: 07/24/25 Status: Ordered Medication Dispense Status: Completed Quantity: 180.0 Unit: tab(s) Total Allowed Fills: 4 Fills Dispensed: 0 Start: 11-09-2023 End: 07-17-2024 take 1 tablet by mouth twice daily metoprolol tartrate, short acting, (LOPRESSOR) 50 mg tablet Take 1 tablet by mouth two times a day. Please hold for SBP 11/09/2023 Active Start: 09-02-2023 End: 09-09-2023 Metoprolol Tartrate 50 mg or al tablet Dose : 50 mg = 1 tab(s), Oral, BID, TAKE 1 TABLET BY MOUTH THREE TIMES A DAY. PLEASE HOLD FOR SBP Start Date: 09/02/23 Stop Date: 09/09/23 Status: Ordered Start: 07-18-2023 End: 11-09-2023 take 1 tablet by mouth three times daily metoprolol tartrate, short acting, (LOPRESSOR) 50 mg tablet Take 1 tablet by mouth three times a day. Please hold for SBP 90 tablet 07/18/2023 11/09/2023 Discontinued nitroglycerin 0.4 mg sublingual tablet (20 sources) Nitrate Vasodilator Start: 03-22-2023 Nitrostat 0.4 mg sublingual tablet Dose : 0.4 mg = 1 tab(s), Sublingual, q5min, PRN as needed for chest pain, # 100 tab(s), 0 Refill(s), Pharmacy: [facility]/pharmacy #[id number], 153.5, cm, 03/22/23 15:00:00 EST, Height, kg, 03/22/23 15:00:00 EST, Dosing Weight Start Date: 03/22/23 Status: Ordered Medication Dispense Status: Completed Quantity: 100.0 Unit: tab(s) Total Allowed Fills: 1 Fills Dispensed: 0 Start: 07-23-2019 Nitrostat 0.4 mg sublingual tablet Dose : 0.4 mg = 1 tab(s), Sublingual, q5min, PRN as needed for chest pain, # 100 tab(s), 0 Refill(s), Pharmacy: [facility], 152.4, cm, 07/23/19 10:45:00 EDT, Height, kg, 07/23/19 10:45:00 EDT, Dosing Weight Start Date: 07/23/19 Status: Ordered Start: 01-11-2018 End: 07-18-2023 Nitroglycerin Active 0.4 MG SL every 5 to 15 minutes February 23, 2018 12:09pm Comment on above: Dissolve 0.4 mg unde r the tongue every 5 minutes as needed. Nitrostat 0.4 mg sublingual tablet (5 sources) Start: 0 Nitrostat 0.4 mg sublingual tablet Dose : 0.4 mg = 1 tab(s), Sublingual, q5min, PRN as needed for chest pain, # 100 tab(s), 0 Refill(s), Pharmacy: [facility], 152.4, cm, 07/23/19 10:45:00 EDT, Height, kg, 07/23/19 10:45:00 EDT, Dosing Weight Start Date: 07/23/19 Status: Ordered omeprazole 40 mg delayed release oral capsule (20 sources) Proton Pump Inhibitor Start: 8 End: take 40 mg by mouth once daily Omeprazole Active 40 MG PO daily 90 December 19, 2017 2:12pm Comment on above: Take 40 mg by mouth once daily. polyethylene glycol 3350 68883 mg powder for oral solution (18 sources) Osmotic Laxative Start: 4 End: polyethylene glycol 3350 17 gram packet [The details of the medication are not available because there are pending changes by a home health clinician.] 7 Packet 0 07/19/2023 07/26/2023 Active Start: 07-19-2023 End: 07-26-2023 polyethylene glycol 3350 17 gram packet Take 1 Packet by mouth once daily for 7 days. Dissolve dose in 4 - 8 ounces of liquid and take as directed. 7 Packet 0 07/19/2023 07/26/2023 Active potassium chloride 10 meq oral tablet (20 sources) Start: 12-22-2022 take 20 mEq by mouth once daily Potassium Chloride Active 20 MEQ PO DAILY 180 December 22, 2022 10:45am Start: 08-31-2022 End: 03-16-2024 potassium chloride 10 mEq or al tablet, extended release Dose : 10 mEq = 1 tab(s), Oral, BID, with food, # 60 tab(s), 0 Refill(s), Pharmacy: [facility]/pharmacy #[id number], 152.5, cm, 12/21/23 10:53:00 EST, Height, kg, 12/21/23 10:53:00 EST, Dosing Weight Start Date: 12/21/23 Status: Ordered Medication Dispense Status: Completed Quantity: 60.0 Unit: tab(s) Total Allowed Fills: 1 Fills Dispensed: 0 Start: 08-11-2021 End: 08-06-2022 potassium chloride 10 mEq or al tablet, extended release Dose : 10 mEq = 1 tab(s), Oral, qDay, with food, # 90 tab(s), 3 Refill(s), Pharmacy: [facility], 152.2, cm, 08/11/21 10:59:00 EDT, Height, kg, 08/11/21 10:59:00 EDT, Dosing Weight Start Date: 08/11/21 Stop Date: 08/06/22 Status: Ordered Start: 07-23-2019 End: 07-17-2020 potassium chloride 10 mEq or al tablet, extended release Dose : 10 mEq = 1 tab(s), Oral, qDay, with food, # 90 tab(s), 3 Refill(s), Pharmacy: [facility], 152.4, cm, 07/23/19 10:45:00 EDT, Height, kg, 07/23/19 10:45:00 EDT, Dosing Weight Start Date: 07/23/19 Stop Date: 07/17/20 Status: Ordered Start: 07-11-2018 End: 12-22-2022 take 10 mEq by mouth once daily Potassium Chloride Dis continued 10 MEQ PO DAILY 90 February 19, 2022 10:12am December 22, 2022 10:47am take 2 tablets by mo [facility] twice daily potassium chloride (K-TAB) 10 mEq tablet Take 20 mEq by mouth two times a day. Active take 2 tablets by mo [facility] once daily potassium chloride (K-TAB) 10 mEq tablet Take 20 mEq by mouth once daily. 0 [facility] chloride (K-TAB) 10 mEq tablet Take 10 mEq by mouth once daily. 0 Active Comment on above: Take 10 mEq by mouth once daily. predniSONE 20 mg oral tablet (1 source) Start: 11-27-2020 End: 12-04-2020 predniSONE 20 mg oral tablet Dose : 40 mg = 2 tab(s), Oral, qDay, X 7 day(s), # 14 tab(s), 0 Refill(s), 12/04/20 15:54:00 EDT, Pharmacy: [facility], 153.5, cm, 11/27/20 15:31:00 EDT, Height, kg, 11/27/20 15:31:00 EDT, Dosing Weight Start Date: 11/27/20 Stop Date: 12/04/20 Status: Ordered rivaroxaban 20 mg oral tablet (1 source) Factor Xa Inhibitor Start: 04-18-2024 Xarelto 20 mg oral tablet Dose : 20 mg = 1 tab(s), Oral, with supper, # 30 tab(s), 0 Refill(s), Pharmacy: [facility]/pharmacy #[id number], 153, cm, 04/18/24 11:02:00 EST, Height, 82.3, kg, 04/18/24 11:02:00 EST, Dosing Weight Start Date: 04/18/24 Status: Ordered Quantity: 30.0 Unit: tab(s) Repeat number: 1 rOPINIRole 2 mg oral tablet (20 sources) Nonergot Dopamine Agonist Start: 11-27-2020 End: 03-27-2021 rOPINIRole 2 mg oral tablet Dose : 2 mg = 1 tab(s), Oral, qDay, # 30 tab(s), 3 Refill(s), [facility] [address] 153.5, cm, 11/27/20 15:31:00 EDT, Height, kg, 11/27/20 15:31:00 EDT, Dosing Weight Start Date: 11/27/20 Stop Date: 03/27/21 Status: Ordered Start: 08-13-2020 End: 08-18-2022 rOPINIRole 0.5 mg oral table t take 1 tablet by mouth 1 to 2 hours BEFORE BEDTIME ON 4TH NIGHT MAY INCREASE TO 2 TABLETS Start Date: 08/13/20 Status: Ordered Start: 08-11-2020 End: 10-12-2021 Ropinirole Discontinued 0.5 MG PO DAILY 60 November 03, 2020 9:55am October 12, 2021 9:18am 1 tab 1-2 hours before bed, on 4th night may increase to 2 tabs Comment on above: Take 0.5 mg by mouth three times daily. sertraline 100 mg oral tablet (20 sources) Serotonin Reuptake Inhibitor Start: 08-11-2021 sertraline 100 mg oral tablet See Instructions, TAKE 1 AND 1/2 TABLETS DAILY, # 135 tab(s), 3 Refill(s), Pharmacy: [facility], 152.2, cm, 08/11/21 10:59:00 EDT, Height, kg, 08/11/21 10:59:00 EDT, Dosing Weight Start Date: 08/11/21 Status: Ordered Start: 11-18-2020 sertraline 100 mg oral tablet See Instructions, TAKE 1 AND 1/2 TABLETS DAILY, # 135 tab(s), 3 Refill(s), Pharmacy: [facility], 152.4, cm, 11/03/20 9:45:00 EDT, Height, kg, 11/03/20 9:45:00 EDT, Dosing Weight Start Date: 11/18/20 Status: Ordered Start: 08-25-2020 End: 02-02-2022 take 150 mg by mouth once daily Sertraline Discontinued 150 MG PO daily August 25, 2020 11:52am February 02, 2022 12:29pm Start: 05-16-2017 End: 08-25-2020 take 100 mg by mouth once daily Sertraline Discontinued 100 MG PO daily May 16, 2017 12:00am August 25, 2020 11:53am End: 08-18-2022 sertraline (ZOLOFT) 100 mg t ablet Take 150 mg by mouth once daily. 1.5 tablets daily 0 08/18/2022 Discontinued Comment on above: Take 150 mg by mouth once daily. 1.5 tablets daily tiZANidine 4 mg oral tablet (7 sources) Central alpha-2 Adrenergic Agonist Start: 10-02-2022 tiZANidine 4 mg oral tablet Dose : 4 mg = 1 tab(s), Oral, q8h, 1/2 to 1 tablet every 8 hours., # 20 tab(s), 0 Refill(s), Pharmacy: [facility] #[id number], Thoracic back pain, 152, cm, 08/31/22 10:33:00 EDT, Height, kg, 10/02/22 8:05:00 EDT, Dosing Weight Start Date: 10/02/22 Status: Ordered Start: 11-27-2020 End: 12-27-2020 tiZANidine 2 mg oral tablet Dose : 4 mg = 2 tab(s), Oral, q8h, PRN Muscle spasm, # 30 tab(s), 0 Refill(s), Pharmacy: [facility] 153.5, cm, 11/27/20 15:31:00 EDT, Height, kg, 11/27/20 15:31:00 EDT, Dosing Weight Start Date: 11/27/20 Stop Date: 12/27/20 Status: Ordered traZODone hydrochloride 100 mg oral tablet (15 sources) Serotonin Reuptake Inhibitor Start: 08-16-2023 End: 08-10-2024 traZODone 100 mg oral tablet Dose : 100 mg = 1 tab(s), Oral, qHS, PRN Insomnia, # 90 tab(s), 3 Refill(s), Pharmacy: [facility]/pharmacy #[id number], 153.5, cm, 08/16/23 14:51:00 EDT, Height, kg, 08/16/23 14:51:00 EDT, Dosing Weight Start Date: 08/16/23 Stop Date: 08/10/24 Status: Ordered Quantity: 90.0 Unit: tab(s) Repeat number: 4 End: 08-29-2024 traZODone (DESYREL) 50 mg ta blet Take 50 mg by mouth as needed. 08/29/2024 Discontinued (Course of therapy completed) Completed/Discontinued Medications Medication Drug Class(es) Dates Sig (Normalized) Sig (Original) acetaminophen 325 mg / HYDROcodone bitartrate 5 mg oral tablet (5 sources) Opioid Agonist Start: 07-31-2018 End: 08-04-2018 take 1 tablet by mouth every six hours as needed Hydrocodone-Acetam inophen Discontinued 1 TABLET PO EVERY 6 HOURS NEEDED 10 3 July 31, 2018 12:00am August 04, 2018 12:08am [id number] 200 actuat albuterol 0.09 mg/actuat metered dose inhaler (20 sources) beta2-Adrenergic Agonist Start: 07-18-2023 End: 08-12-2023 take 2 puff(s) by inhalation every six hours as needed for wheezing albuterol HFA (PROVENTIL HFA, VENTOLIN HFA) 90 mcg/actuation inhaler Inhale 2 Puffs as instructed every 6 hours as needed for wheezing/shortness of breath. 1 Each 2 07/18/2023 08/12/2023 Discontinued (Course of therapy completed) Start: 02-20-2020 End: 02-21-2020 take 2.5 mg by inhalation every four hours Albuterol Sulfate Discontinued 2.5 MG INHALATION Q4H 180 February 20, 2020 1:00am February 21, 2020 4:08pm Start: 11-14-2019 take 1.25 mg by inha lation every four hours Albuterol Sulfate Active 1.25 MG INHALATION Q4H November 14, 2019 12:00am Start: 10-09-2019 End: 11-14-2019 take 2.5 mg by inhalation every four hours Albuterol Sulfate Discontinued 2.5 MG INHALATION Q4H 180 October 09, 2019 12:00am November 14, 2019 10:47am Start: 09-04-2019 End: 02-21-2020 take 1 puff(s) by inhalation every four hours Albuterol Sulfate Discontinued 2 PUFF INHALATION Q4H 1 September 04, 2019 12:00am February 21, 2020 4:08pm administer with spacer aspirin 81 mg delayed release oral tablet (18 sources) Platelet Aggregation Inhibitor, Nonsteroidal Anti-inflammatory Drug Start: 08-08-2013 End: 08-18-2022 take 1 tablet by mouth once daily Aspirin (Adult Aspirin Regimen) 81 mg tablet,delayed release (DR/EC) Discontinued 81 MG PO daily May 16, 2017 12:00am February 02, 2022 12:29pm Comment on above: Take 81 mg by mouth once daily. atovaquone 250 mg / proguanil hydrochloride 100 mg oral tablet (5 sources) Antimalarial, Antiprotozoal Start: 10-10-2018 End: 08-10-2019 Atovaquone-Proguani l Discontinued 0 PO .COMPLEX October 10, 2018 12:00am August 10, 2019 11:28am as directed for trip to [facility] bicalutamide 50 mg oral tablet (5 sources) Androgen Receptor Inhibitor Start: 01-11-2018 End: 02-23-2018 take 50 mg by mouth three times daily Bicalutamide Discontinued 50 MG PO THREE TIMES A DAY January 11, 2018 1:00am February 23, 2018 11:32am 12 hr buPROPion hydrochloride 150 mg extended release oral tablet (10 sources) Aminoketone Start: 02-23-2018 End: 02-21-2020 take 150 mg by mouth twice daily Bupropion Hcl Discontinued 150 MG PO TWICE A DAY February 23, 2018 1:00am February 21, 2020 4:09pm Start: 05-16-2017 End: 01-11-2018 take 150 mg by mouth twice daily Bupropion Hcl Discontinued 150 MG PO TWICE A DAY May 16, 2017 12:00am January 11, 2018 2:28pm calcium carbonate 500 mg chewable tablet (20 sources) Start: 07-18-2023 End: 11-09-2023 take 1000 mg by mouth every twelve hours as needed calcium carbonate (TUMS) 500 mg chew [The details of the medication are not available because there are pending changes by a home health clinician.] 07/18/2023 11/09/2023 Discontinued (Course of therapy completed) Start: 07-18-2023 take 1000 mg by mout h every twelve hours as needed calcium carbonate (TUMS) 500 mg chew Take 2 tablets by mouth two times a day as needed. 0 07/18/2023 Active carvedilol 3.125 mg oral tablet (4 sources) alpha-Adrenergic Melanie, beta-Adrenergic Melanie End: 07-18-2023 take 1 tablet by mouth twice daily at mealtime carvedilol (COREG) 3.125 mg tablet Take 3.125 mg by mouth two times a day with meals. 0 07/18/2023 Discontinued CPAP (12 sources) CPAP daily at bedtime. 0 Suspended CPAP daily at be dtime. 0 Active CPAP Comment on above: daily at bedtime. folic acid 1 mg oral tablet (20 sources) Start: 07-19-2023 End: 11-13-2023 folic acid 1 mg oral tablet Dose : 1 mg = 1 tab(s), Oral, qDay, # 30 tab(s), 0 Refill(s), Pharmacy: [facility], 152.5, cm, 09/20/23 11:08:00 EDT, Height, kg, 09/20/23 11:08:00 EDT, Dosing Weight Start Date: 10/14/23 Stop Date: 11/13/23 Status: Ordered Medication Dispense Status: Completed Quantity: 30.0 Unit: tab(s) Total Allowed Fills: 1 Fills Dispensed: 0 Start: 02-11-2021 folic acid 1 m g oral tablet Dose : 2 mg = 2 tab(s), Oral, qDay, 0 Refill(s) Start Date: 02/11/21 Status: Ordered Start: 02-04-2021 End: 03-25-2021 take 2 mg by mouth once daily Folic Acid Discontinued 2 MG PO DAILY February 04, 2021 1:00am March 25, 2021 12:08pm hydrOXYzine pamoate 25 mg oral capsule (6 sources) Antihistamine End: 08-18-2022 take 1 capsule by mouth every eight hours as needed hydrOXYzine pamoate (VISTARIL) 25 mg capsule Take 25 mg by mouth three times daily as needed. 0 08/18/2022 Discontinued Comment on above: Take 25 mg by mouth three times daily as needed. ibuprofen 400 mg oral tablet (5 sources) Nonsteroidal Anti-inflammatory Drug Start: 05-17-2018 End: 06-29-2018 take 400 mg by mouth every eight hours Ibuprofen Discontinued 400 MG PO Q8H 60 May 17, 2018 12:00am June 29, 2018 1:34pm lidocaine 0.04 mg/mg medicated patch (20 sources) Antiarrhythmic, Amide Local Anesthetic Start: 07-19-2023 End: 08-29-2024 apply 1 dose transdermal route once daily as needed, then apply 1 dose transdermal route every twelve hours as needed lidocaine (SALONPAS) 4 % patch Apply 1 Patch as directed once daily as needed. Can cut patch lengthwise and place on area of discomfort. Please remove after 12 hours of use, can replace after patch has been off for 12 hours. 1 Patch 08/12/2023 08/29/2024 Discontinued (Course of therapy completed) Start: 07-19-2023 apply 1 dose transde rmal route every twelve hours lidocaine (SALONPAS) 4 % patch Can cut patch lengthwise and place on area of discomfort. Please remove after 12 hours of use, can replace after patch has been off for 12 hours. Patient should start on July 19, 2023. 0 07/19/2023 Active magnesium oxide 400 mg oral tablet (20 sources) Start: 07-19-2023 End: 08-18-2023 magnesium oxide (MAG-OX) 400 mg (241.3 mg magnesium) tablet [The details of the medication are not available because there are pending changes by a home health clinician.] 30 tablet 0 07/19/2023 08/12/2023 Discontinued (Course of therapy completed) Start: 07-19-2023 End: 08-18-2023 take 1 tablet by mouth once daily magnesium oxide (MAG-OX) 400 mg (241.3 mg magnesium) tablet Take 1 tablet by mouth once daily. 30 tablet 0 07/19/2023 08/18/2023 Active melatonin 3 mg oral tablet (20 sources) Start: 07-19-2023 End: 08-29-2024 take 1 tablet by mouth every twenty-four hours as needed melatonin 3 mg tablet Take 3 mg by mouth at bedtime as needed for insomnia. 07/19/2023 08/29/2024 Discontinued (Course of therapy completed) meloxicam 7.5 mg oral tablet (5 sources) Nonsteroidal Anti-inflammatory Drug Start: 12-03-2020 End: 12-13-2020 meloxicam 7.5 mg oral tablet Dose : 7.5 mg = 1 tab(s), Oral, qDay, # 10 tab(s), 0 Refill(s), Pharmacy: [facility], 153.5, cm, 11/27/20 15:31:00 EDT, Height, kg, 11/27/20 15:31:00 EDT, Dosing Weight Start Date: 12/03/20 Stop Date: 12/13/20 Status: Ordered methotrexate 2.5 mg oral tablet (7 sources) Folate Analog Metabolic Inhibitor Start: 02-04-2021 End: 03-25-2021 take 2.5 mg by mouth every week Methotrexate Sodium Discontinued 2.5 MG PO EVERY WEEK February 04, 2021 1:00am March 25, 2021 12:08pm Multivitamin preparation (8 sources) take 1 capsule by mouth once daily, then take 1 capsule by mouth every week multivitamin (VITAMIN DAILY ORAL) Take by mouth. Patient reports taking one Vitamin D capsule by mouth, 1 (one) time a week. 0 Suspended take 1 capsule by [facility] once daily, then take 1 capsule by mouth every week multivitamin (VITAMIN DAILY ORAL) Take by mouth. Patient reports taking one Vitamin D capsule by mouth, 1 (one) time a week. 0 Active Comment on above: Take by mouth. Patie nt reports taking one Vitamin D capsule by mouth, 1 (one) time a week. mupirocin 0.02 mg/mg topical ointment (10 sources) RNA Synthetase Inhibitor Antibacterial Start: 08-08-19 24 End: 08-30-19 25 mupirocin (BACTROBAN) 2 % ointment APPLY TO AFFECTED AREA 3 TIMES A DAY FOR 5 DAYS 08/08/2023 08/29/2024 Discontinued (Course of therapy completed) omega-3 acid ethyl esters (correction) 1000 mg oral capsule (5 sources) Start: 01-12-20 18 End: 02-23-19 19 take 1 capsule by mouth once daily [place] 6-Ior-Zwy-Fish Oil Discontinued CAP PO DAILY January 11, 2018 1:00am February 23, 2018 11:32am ondansetron 4 mg oral tablet (10 sources) Serotonin-3 Receptor Antagonist Start: 08-08-19 End: 08-30-19 take 1 tablet by mouth every eight hours as needed ondansetron (ZOFRAN) 4 mg tablet Take 4 mg by mouth every 8 hours as needed. 08/08/2023 08/29/2024 Discontinued (Course of therapy completed) pantoprazole 40 mg delayed release oral tablet (20 sources) Proton Pump Inhibitor Start: 08-12-19 End: 05-08-19 pantoprazole 40 mg oral enteric coated tablet Dose : 40 mg = 1 tab(s), Oral, BID, Short fill until mail order arrives., # 60 tab(s), 0 Refill(s), Pharmacy: [facility]/pharmacy #[id number], 153, cm, 04/18/24 11:02:00 EST, Height, kg, 04/18/24 11:02:00 EST, Dosing Weight Start Date: 04/23/24 Stop Date: 05/07/24 Status: Ordered Medication Dispense Status: Completed Quantity: 60.0 Unit: tab(s) Total Allowed Fills: 1 Fills Dispensed: 0 Start: 08-31-2022 End: 08-12-2023 pantoprazole 40 mg oral ente raven coated tablet Dose : 40 mg = 1 tab(s), Oral, qDay, # 90 tab(s), 3 Refill(s), [facility] 153.3, cm, 11/16/22 10:51:00 EDT, Height, kg, 11/16/22 10:51:00 EDT, Dosing Weight Start Date: 11/16/22 Status: Ordered take 40 mg by mouth once daily p antoprazole sodium (PANTOPRAZOLE ORAL) Take 40 mg by mouth once daily. 0 Suspended prochlorperazine 5 mg oral tablet (17 sources) Phenothiazine Start: 07-20-2023 End: 08-12-2023 take 1 tablet by mouth every eight hours as needed prochlorperazine (COMPAZINE) 5 mg tablet Take 1 tablet by mouth every 8 hours as needed. 9 tablet 0 07/20/2023 08/12/2023 Discontinued (Course of therapy completed) Start: 07-20-2023 take 1 tablet by danii th every eight hours as needed prochlorperazine (COMPAZINE) 5 mg tablet [The details of the medication are not available because there are pending changes by a home health clinician.] 9 tablet 0 07/20/2023 Active saliva substitute combo no.9 (BIOTENE DRY MOUTH ORAL RINSE) mwsh (10 sources) Start: 08-12-2023 End: 08-29-2024 take 15 mL transmucosal route every twelve hours as needed saliva substitute combo no.9 (BIOTENE DRY MOUTH ORAL RINSE) mwsh Use 15 mL as instructed two times a day as needed. 473 mL 08/12/2023 08/29/2024 Discontinued (Course of therapy completed) Start: 08-12-2023 take 15 mL transmuco kinga route every twelve hours as needed saliva substitute combo no.9 (BIOTENE DRY MOUTH ORAL RINSE) mwsh Use 15 mL as instructed two times a day as needed. 473 mL 08/12/2023 Active Start: 08-12-2023 take 15 mL transmuco kinga route every twelve hours as needed saliva substitute combo no.9 (BIOTENE DRY MOUTH ORAL RINSE) mwsh Use 15 mL as instructed two times a day as needed. 473 mL 0 08/12/2023 Active traMADol hydrochloride 50 mg oral tablet (20 sources) Opioid Agonist Start: 09-20-2023 traMADol 50 mg oral tablet mg = tab(s), Oral, q6hr, 0 Refill(s), 79.1 Start Date: 09/20/23 Status: Ordered Repeat number: 1 Start: 07-15-2021 End: 08-29-2024 take 1 tablet by mouth every eight hours as needed traMADol (ULTRAM) 50 mg tablet Take 50 mg by mouth every 8 hours as needed. 07/15/2021 08/29/2024 Discontinued (Course of therapy completed) triamcinolone acetonide 0.005 mg/mg topical ointment (6 sources) Corticosteroid End: 08-18-2022 triamcinolone acetonide topical 0.5 % ointment Apply to affected area twice daily. 0 08/18/2022 Discontinued Comment on above: Apply to affected ar ea twice daily. Problems Active Problems Problem Classification Problem Date Documented Date Episodic/Chronic Anxiety disorders (1 source) Generalized anxiety disorder 07-18-2024 Chronic Asthma (1 source) Unspecified asthma, uncomplicated; Translations: [Unspecified asthma, uncomplicated] Onset: 12-18-2024 Chronic Calculus of urinary tract (20 sources) Kidney stone 02-23-2017 Episodic Cardiac dysrhythmias (20 sources) Paroxysmal atrial fibrillation; Translations: [Paroxysmal atrial fibrillation] Onset: 07-07-2023 01-25-2023 Chronic Cardiac dysrhythmias (16 sources) Palpitations; Translations: [Palpitations] Onset: 11-17-2022 11-16-2022 Episodic Cataract (14 sources) Bilateral cataracts 11-24-2021 Chronic Coagulation and hemorrhagic disorders (14 sources) Spontaneous ecchymosis 10-06-2021 Episodic Complication of device; implant or graft (6 sources) Complication of catheter 08-09-2023 Episodic Conditions associated with dizziness or vertigo (4 sources) Dizziness; Translations: [Dizziness and giddiness] 06-02-2023 Episodic Coronary atherosclerosis and other heart disease (20 sources) Coronary arteriosclerosis; Translations: [Coronary atherosclerosis] Onset: 07-07-2023 08-11-2021 Chronic Deficiency and other anemia (7 sources) Anemia 08-16-2023 Episodic Diabetes mellitus without complication (8 sources) Hyperglycemia 03-22-2023 Episodic Disorders of lipid metabolism (20 sources) Mixed hyperlipidemia; Translations: [Hyperlipidemia] Onset: 07-07-2023 12-25-2018 Chronic Esophageal disorders (20 sources) Gastroesophageal reflux disease; Translations: [Gastro-esophageal reflux disease without esophagitis] 08-08-2013 Chronic Essential hypertension (20 sources) Hypertensive disorder; Translations: [Essential (primary) hypertension] Onset: 07-07-2023 12-25-2018 Chronic Fluid and electrolyte disorders (19 sources) Hypokalemia; Translations: [Hypokalemia] Onset: 11-24-2022 02-23-2022 Episodic Heart valve disorders (1 source) Mitral valve disorder; Translations: [Rheumatic mitral valve disease, unspecified] 07-08-2023 Chronic Immunizations and screening for infectious disease (13 sources) Raised antinuclear antibody 02-23-2022 Episodic Inflammation; infection of eye (except that caused by tuberculosis or sexually transmitteddisease) (11 sources) Blepharitis 06-08-2022 Episodic Malaise and fatigue (18 sources) Fatigue; Translations: [Other fatigue] 02-23-2022 Episodic Mood disorders (20 sources) Depressive disorder; Translations: [Moderate major depression, single episode] 09-25-2018 Chronic Nausea and vomiting (5 sources) Vomiting 08-08-2023 Episodic Nonspecific chest pain (20 sources) Chest wall pain; Translations: [Chest pain] 11-27-2020 Episodic Nutritional deficiencies (11 sources) Vitamin D deficiency 08-31-2022 Chronic Occlusion or stenosis of precerebral arteries (20 sources) Occlusion and stenosis of bilateral carotid arteries; Translations: [Bilateral stenosis of carotid arteries] Onset: 07-12-2023 Chronic Osteoporosis (4 sources) Osteoporosis; Translations: [Age-related osteoporosis without current pathological fracture] 12-21-2022 Chronic Other aftercare (2 sources) Long-term current use of anticoagulant; Translations: [correction (current) use of anticoagulants] 06-02-2023 Episodic Other and unspecified benign neoplasm (5 sources) Fibroadenoma of breast; Translations: [Benign neoplasm of unspecified breast] 03-25-2021 Episodic Other and unspecified benign neoplasm (2 sources) Polyp of colon 04-18-2024 Episodic Other circulatory disease (20 sources) Disorder of carotid artery; Translations: [Disorder of arteries and arterioles, unspecified] Onset: 07-07-2023 08-25-2020 Chronic Other circulatory disease (1 source) Disorder of arteries and arterioles, unspecified; Translations: [Unspecified disorders of arteries and arterioles] 12-21-2022 Chronic Other circulatory disease (15 sources) Easy bruising 10-27-2021 Episodic Other connective tissue disease (20 sources) Swelling of left lower limb 08-13-2020 Episodic Other connective tissue disease (15 sources) Chronic musculoskeletal pain 10-27-2021 Episodic Other connective tissue disease (15 sources) Swelling of lower limb; Translations: [Other specified soft tissue disorders] 02-16-2022 Episodic Other diseases of veins and lymphatics (2 sources) Peripheral venous insufficiency; Translations: [Venous insufficiency (chronic) (peripheral)] Episodic Other hereditary and degenerative nervous system conditions (20 sources) Restless legs; Translations: [Restless legs syndrome] 11-27-2020 Chronic Other lower respiratory disease (13 sources) Dyspnea on exertion; Translations: [Other forms of dyspnea] 10-06-2021 Episodic Other lower respiratory disease (18 sources) Dyspnea; Translations: [Dyspnea, unspecified] 02-16-2022 Episodic Other lower respiratory disease (3 sources) Chronic cough; Translations: [Chronic cough] 05-27-2023 Episodic Other nervous system disorders (20 sources) Paresthesia 08-13-2020 Episodic Other non-traumatic joint disorders (20 sources) Hip pain 02-11-2021 Episodic Other nutritional; endocrine; and metabolic disorders (5 sources) Obesity; Translations: [Obesity, unspecified] 05-16-2017 Chronic Other nutritional; endocrine; and metabolic disorders (6 sources) Obesity, unspecified; Translations: [Obesity, unspecified] 02-02-2022 Chronic Other nutritional; endocrine; and metabolic disorders (20 sources) Obese class II; Translations: [Obesity, unspecified] Onset: 07-07-2023 07-07-2023 Chronic Other nutritional; endocrine; and metabolic disorders (20 sources) Body mass index 40+ - severely obese; Translations: [Morbid (severe) obesity due to excess calories] Onset: 07-14-2023 07-18-2023 Chronic Other nutritional; endocrine; and metabolic disorders (20 sources) Morbid obesity; Translations: [Morbid (severe) obesity due to excess calories] Onset: 07-16-2023 07-16-2023 Chronic Other screening for suspected conditions (not mental disorders or infectious disease) (10 sources) Echocardiogram abnormal; Translations: [Abnormal result of other cardiovascular function study] 08-27-2019 Episodic Other skin disorders (14 sources) Loss of hair 02-16-2022 Episodic Residual codes; unclassified (20 sources) Obstructive sleep apnea syndrome; Translations: [Obstructive sleep apnea (adult) (pediatric)] Onset: 07-13-2023 09-20-2018 Chronic Residual codes; unclassified (9 sources) Obstructive sleep apnea (adult) (pediatric); Translations: [Obstructive sleep apnea (adult)(pediatric)] Onset: 12-18-2024 02-02-2022 Chronic Residual codes; unclassified (20 sources) Chronic back pain 05-12-2021 Episodic Residual codes; unclassified (14 sources) Pitting edema 10-06-2021 Episodic Residual codes; unclassified (14 sources) Amnesia 11-24-2021 Episodic Residual codes; unclassified (11 sources) Edema of lower extremity 08-31-2022 Episodic Residual codes; unclassified (11 sources) Postmenopausal state 08-31-2022 Episodic Residual codes; unclassified (1 source) Other specified postprocedural states; Translations: [History of right-sided carotid endarterectomy] Onset: 08-16-2024 Episodic Spondylosis; intervertebral disc disorders; other back problems (2 sources) Lumbosacral spondylosis with radiculopathy; Translations: [Other spondylosis with radiculopathy, lumbar region] Chronic Spondylosis; intervertebral disc disorders; other back problems (20 sources) Low back pain; Translations: [Low back pain, unspecified] 11-27-2020 Episodic Substance-related disorders (20 sources) Tobacco dependence in remission; Translations: [Nicotine dependence, cigarettes, in remission] Onset: 07-10-2023 04-27-2022 Chronic Transient cerebral ischemia (20 sources) Transient cerebral ischemia 08-08-2013 Chronic Unclassified (1 source) Unknown / UNK(Unknown) Onset: 08-16-2016 Unclassified (20 sources) Patient encounter status 11-27-2020 Viral infection (4 sources) Disease caused by 2019-nCoV 11-27-2020 Past or Other Problems Problem Classification Problem Date Documented Da te Episodic/Chronic Acute myocardial infarction (20 sources) Myocardial infarction; Translations: [Non-ST elevation (NSTEMI) myocardial infarction] Onset: 07-07-2023 Resolved: 07-09-2023 07-07-2023 Chronic Administrative/social admission (20 sources) Counseling procedure with explicit context; Translations: [Tobacco abuse counseling] Onset: 07-16-2023 07-16-2023 Episodic Complications of surgical procedures or medical care (20 sources) Iatrogenic hypotension; Translations: [Postprocedural hypotension] Onset: 07-12-2023 Resolved: 07-12-2023 07-12-2023 Episodic Coronary atherosclerosis and other heart disease (3 sources) Presence of coronary angioplasty implant and graft; Translations: [Percutaneous transluminal coronary angioplasty status] Onset: 07-12-2018 12-21-2022 Episodic Other lower respiratory disease (20 sources) Respiratory insufficiency; Translations: [Other abnormalities of breathing] Onset: 07-12-2023 Resolved: 07-12-2023 07-12-2023 Episodic Other lower respiratory disease (20 sources) Acute pulmonary edema; Translations: [Acute pulmonary edema] Onset: 07-16-2023 Resolved: 07-18-2023 07-18-2023 Episodic Pleurisy; pneumothorax; pulmonary collapse (20 sources) Atelectasis; Translations: [Atelectasis] Onset: 07-18-2023 07-18-2023 Episodic Residual codes; unclassified (5 sources) History of cardiac catheterization; Translations: [Other specified postprocedural states] Onset: 09-05-2019 09-06-2019 Episodic Residual codes; unclassified (20 sources) Tobacco user; Translations: [Tobacco use] Onset: 07-07-2023 07-07-2023 Episodic Respiratory failure; insufficiency; arrest (adult) (20 sources) Acute respiratory failure; Translations: [Acute respiratory failure with hypoxia] Onset: 07-16-2023 Resolved: 07-18-2023 07-18-2023 Episodic Unclassified (1 source) XRAY CHEST Onset: 08-16-2016 Results Test Name Value Interpretation Reference Range Facility Cardiology Visit Reporton Cardiology Visit Report [facility] [address] [place] [address] OFFICE VISIT Date of Service: 12/20/24 MR#: [id number] Acct: [id number] Name: DOMI SNELL Rep #: [id number] : 1950 Provider: MARK Cardenas Age/Sex: 74/F [place] [facility] [place]: Signed HPI HPI History of Present Illness Details: Patient is a 74-year-old white female that comes in today for monitoring of her cardiovascular status. The patient underwent coronary bypass graft surgery at [facility] in June 2023. She had a 60% left main trunk lesion and she received the free GORDON to the LAD a vein graft to the OM 2 and a vein graft to the ramus branch of the circumflex. In June 2018 she had a right coronary artery stent which remained patent at the time of her catheterization prior to the bypass surgery. During the bypass surgery she also received a maze procedure and the left atrial appendage was occluded. Prior to her bypass surgery the patient had had episodes of paroxysmal atrial fibrillation. She was in cardiac rehab in [place] and developed atrial fibrillation. The patient had a 10-day event monitor that was placed November 24 that she wore through December 04. This monitor showed that she was primarily in sinus rhythm with a average heart rate of 67 minimum heart rate was 49 maximum heart rate was 123 she had 0.03% supraventricular ectopic beats she had 7 supraventricular arrhythmias the longest event was 2 minutes and 9 seconds her PVC burden was 1.15%. The patient activated the monitor 5 times and there were no arrhythmias documented with her activations. This monitor was taken off prior to her developing the atrial fibrillation in cardiac rehab which occurred December 21. The patient remains on Eliquis and denies any nuisance bleeding. The patient has been evaluated by Dr. Carrion with the EP group at [facility]. She is status post left atrial appendage surgical occlusion with a Maze procedure at the time of her CABG June 2023. She was just in to see pulmonary. It was felt that she was in/out of Afib during her visit. EKG today demonstrates NSR with a HR of 61. She does feel her heart racing, it is more so at night. This is frequent. She does sometimes have chest pain. She is not sure of this is related to stress, her has been in out of hospital for the last few months. She is going to have her sleep study redone. Intake Vital Signs 06/01/24 07:39 12/20/24 07:53 12/20/24 09:26 Height 5 ft 5 ft Weight: 180 lb BMI 35.2 BP 145/79 H 150/66 H Blood Pressure Location Lt brachial Lt brachial Position Sitting Sitting Respiration 18 Pulse 53 L Pulse Source Monitor Pulse Oximetry (%) 95 Oxygen Delivery Method room air Intake Visit Reasons: 6 M FU Hand Alterations Tailor Required: No Accompanied by: Self Is patient in pain?: No Allergies doxycycline Allergy (Verified 12/20/24 09:09) Unknown amiodarone Adverse Reaction (Severe, Verified 12/20/24 09:09) dizziness, nausea,vomiting, numbness metoprolol Adverse Reaction (Verified 12/20/24 09:09) intermittent heart block oxycodone Adverse Reaction (Verified 12/20/24 09:09) vomiting Medications ???Medication ???Instructions ???Recorded ???Confirmed ???Type atorvastatin 80 mg tablet 80 mg PO QHS cholesterol #90 tabs 01/11/18 12/20/24 Rx duloxetine 20 mg capsule,delayed 20 mg PO DAILY mood 04/27/2212/20 History release apixaban 5 mg tablet (Eliquis) 5 mg PO BID blood thinner #60 tabs 01/25/23 12/20/24 Rx ascorbic acid (vitamin C) 500 mg 1 g PO DAILY@1200 vitamin 07/24/23 12/20/24 History tablet calcium carbonate (Antacid 400 mg PO BID PRN dyspepsia 12/20/24 History (calcium carbonate)) pantoprazole 40 mg tablet,delayed 40 mg PO BID #60 tabs 08/01/23 Rx release furosemide 40 mg tablet 40 mg PO DAILY #90 tabs 09/08/23 1 02/20/24 Rx metoprolol tartrate 50 mg tablet 50 mg PO BID blood pressure #180 0 10/31/23 12/20/24 Rx tabs potassium chloride 10 mEq 10 meq PO QDAY 01/02/24 12/20/24 H istory tablet,extended release cholecalciferol (vitamin D3) 1,000 mcg PO DAILY 02/01/24 History amlodipine 10 mg tablet 10 mg PO QDAY 12/18/24 12/20/24 Hi story azithromycin 250 mg tablet See Rx Instructions PO .COMPLEX 5 12/18/24 12/20/24 Rx days #6 tabs buspirone 10 mg tablet 10 mg PO TID 12/18/24 12/20/24 His tory ipratropium 0.5 mg-albuterol 3 mg 3 ml inhalation Q4H PRN PRN SOB 1 02/18/24 12/20/24 Rx (2.5 mg base)/3 mL nebulization /OR WHEEZING #180 mL soln prednisone 20 mg tablet 60 mg (3 x 20 mg) PO QDAY 5 days 1 02/18/24 12/20/24 Rx #15 tabs aspirin 81 mg tablet,delayed 81 mg PO QDAY 12/20/24 12/20/24 Hi story release (Adult Aspirin Regimen) (more content not included)... Normal [facility] Pulmonary Visit Reporton Pulmonary Visit Report [facility] [address] [place] [address] OFFICE VISIT Date of Service: 12/18/24 MR#: [id number] Acct: [id number] Name: DOMI SNELL Rep #: [id number] : 1950 Provider: CHRISTIAN Bradshaw Age/Sex: 74/F Location: [facility] [place] Status: Signed Assessment and Plan Assessment and Plan (1) ERICKA (obstructive sleep apnea): Status: Chronic Comment: CPAP of 11 cm of water Plan: Deteriorated. The patient is not feeling rested and has a elevated residual AHI. She also has an irregular heart rhythm on exam today. I suspect that the patient is not optimized in treatment of her obstructive sleep apnea. She is agreeable to a titration study. Once test results are available we will order the appropriate equipment or pressure settings. Follow-up in approximately 8 weeks to evaluate her response to new therapy. She has been encouraged to contact our office with any new or worsening symptoms in the meantime. (2) Nicotine dependence in remission: Status: Chronic Qualifiers: Nicotine product type: cigarettes Qualified Code(s): F17.211 - Nicotine dependence, cigarettes, in remission Comment: Greater than 20 pack years quit in 2018 Plan: Encourage ongoing smoking cessation. She is appropriate for repeat LDCT in 2 weeks. Follow up in 4- 8 weeks to discuss test results. (3) Obesity: Status: Chronic Qualifiers: Body mass index: BMI 35.0-35.9 Obesity classification: adult class 2 (BMI 35 - 39.9) Obesity type: due to excess calories Serious obesity comorbidity presence: with serious comorbidity Qualified Code(s): E66.812 - Obesity, class 2; Z68.35 - Body mass index [BMI] 35.0-35.9, adult Plan: Complicates exam, plan, care and prognosis. Continue to encourage weight loss through dietary restriction and mild graded exercise program. (4) Asthma: Status: Acute Qualifiers: Asthma severity: mild Asthma persistence: intermittent Asthma complication type: with acute exacerbation Qualified Code(s): J45.21 - Mild intermittent asthma with (acute) exacerbation Plan: Deteriorated. The patient appears to be in exacerbation of asthma today. Treating with a Z-Bruno and prednisone burst. I reminded her to utilize the nebulizer she has on hand. She did need a refill of solution for the machine. She has been encouraged to contact our office if symptoms do not improve after 72 hours on these medications. (5) Paroxysmal atrial fibrillation: Status: Acute Comment: left-sided Maze procedure, left atrial appendage clip 06/2023 Plan: Deteriorated. Irregular rhythm noted on exam today. If you recall, this patient also has a history of myocardial infarction. It is imperative that we optimize the care of her obstructive sleep apnea to reduce the risk of recurrent myocardial infarction and to put her in the best place moving forward to control this irregular rhythm from a cardiology standpoint. Orders: Orders Polysomnography with PAP Today G47.33 - Obstructive sleep apnea (adult) (pediatric) Medications: New azithromycin take 500 mg today (day 1), then 250 mg for 4 days (days 2-5) PO 6 tabs 0RF 5 days G47.33 - Obstructive sleep apnea (adult) (pediatric) prednisone administer with food or milk 60 mg (3 x 20 mg) PO QDAY 15 tabs 0RF 5 days G47.33 - Obstructive sleep apnea (adult) (pediatric) ipratropium-albuterol 0.5 mg-3 mg(2.5 mg base)/3 mL 3 mL inhalation Q4H PRN PRN 180 mL 6RF SOB /OR WHEEZING J45.909 - Unspecified asthma, uncomplicated Plan Details Additional Comments: This note was generated with [employer] dictation software. It may contain incorrect words, spelling, and punctuation that were not noted in checking the note before signing. Portions of this documentation have been copied and pasted from previous office visit notes to provide a cohesive continuity of the history. The note has been reviewed, edited, and updated, as necessary. I have spent 35 minutes today reviewing labs, records and history. Time includes coordinating care, interpretation of tests, discussion with patient's other health care providers. This also includes time I spent with the patient for exam, treatment plan and education as well as documenting clinical information. Follow Up: 8 Weeks HPI f u Chief Complaint: PAP supplies HPI Comments Details: This patient presents to the office today for follow-up of her obstructive sleep apnea. She is ambulatory and on room air. She has not recently been seen in the ED or urgent care for any respiratory illness. She has not required any antibiotics or prednisone for any breathing problems. She continues complete smoking cessation since 2018. She is not currently on any inhalers. She has a nebulizer machine at home but does not have any medication to put in it on hand. She has shortness of breath on exertion. She (more content not included)... Normal [facility] MA MAMMOGRAM SCREENING BILAT ERAL W/TOMOon 11-27-2024 MA MAMMOGRAM SCREENING BILATERAL W/ATILIO ORIGINAL FROM: [facility] [address] [address] PROCEDURE FOR: DOMI SNELL [address] [place] [address] Home: PID#: [id number] Exam#: [id number] : 1950 Age: 73 TO: LEONOR ORELLANA [facility] [address] [place], [place] [address] Fax: NO FAX EXAMINATION: SCREENING DIGITAL BILATERAL MAMMOGRAM WITH TOMOSYNTHESIS, 11/26/2024 1:12 pm TECHNIQUE: Screening mammography of the bilateral breasts was performed with tomosynthesis. 2D standard and 3D tomosynthesis combination imaging performed through both breasts in the MLO and CC projection. Computer aided detection was utilized in the interpretation of this exam. COMPARISON: 09/14/2022, 03/09/2021 03/06/2020 HISTORY: Breast cancer screening. FINDINGS: BREAST DENSITY: There are scattered areas of fibroglandular density. There are benign appearing calcifications in both breasts. There are no significant masses or calcifications. IMPRESSION: No mammographic evidence of malignancy. Continued screening with annual mammograms is recommended. Daisy Aguilarck risk calculations, generated with the history provided, report this patient's 10 year risk and lifetime risk for developing breast cancer at 4.3% and 5.3%, respectively. Based on this assessment tool, if the patient's calculated lifetime risk is below 20%, then the patient is considered at average risk for developing breast cancer. If the patient's calculated lifetime risk is at or above 20%, then the patient is considered high risk for developing breast cancer and may be a candidate for supplemental breast MRI screening in addition to annual mammographic screening per the [employer]. BIRADS: BI-RADS: 2: Benign RECALL: 1 year screening RECALL TYPE: mammo LETTER SENT: Normal BI-RADS 1 and 2 Interpreted by: Felicia Brown MD Preliminary Report By: Felicia Brown MD Electronically signed By Felicia Brown MD Dictated Date: 11/27/2024 6:28:13 PM Prelim Date: 11/27/2024 6:29:47 PM Sign Date: 11/27/2024 6:29:47 PM Ordering Provider: LEONOR ORELLANA RP Director Of Fundraising: MARIA R FISHER RT(R)(CT) letter sent: Normal BI-RADS 1 and 2 Mammogram BI-RADS: 2 Benign Normal [facility] BD BONE DENSITY DEXA AXIAL S [facility] 11-26-2024 BD BONE DENSITY DEXA AXIAL [facility] ORIGINAL EXAMINATION: BONE DENSITOMETRY 11/26/2024 2:19 pm TECHNIQUE: A bone density dual x-ray absorptiometry (DEXA) scan was performed of the axial (e.g. hips, spine) and/or appendicular (e.g. radius) skeleton as appropriate. COMPARISON: 09/14/2022 HISTORY: ORDERING SYSTEM PROVIDED HISTORY: Reason for Exam: postmenopausal FINDINGS: T Score Left Femoral Neck: -2.0 Left Femoral Neck: 0.629 (g/cm2) T Score Left Hip: -1.4 Left Hip: 0.766 (g/cm2) T Score Left Forearm: -3.3 Left Forearm: 0.492 (g/cm2) BMD Change from previous Hip: -5.3% BMD change from previous forearm:-4.9% IMPRESSION: Osteoporosis by WHO criteria. World Health Organization criteria: (Comparing with young normal sex matched population) - Normal: T-score at or above -1 SD (standard deviation) - Osteopenia: T-score between -1 and -2.5 SD - Osteoporosis: T-score at or below -2.5 SD The NOF recommends that FDA-approved medical therapies be considered in post-menopausal women and men age >/= 50 years with a: * Hip or vertebral fracture, or * T-score of /= 20% for major osteoporotic fractures or * >/= 3% for hip fractures All treatment decisions require clinical judgement and consideration of individual patient factors, including patient preferences, comorbidities, previous drug use, risk factors not captured in the FRAX registered model (e.g., frailty, falls, vitamin D deficiency, increased bone turnover, interval significant decline in bone density) and possible under- or over-estimation of fracture risk by FRAX. Interpreted by: Felicia Knott DO Preliminary Report By: Felicia Knott DO Electronically signed By Felicia Knott DO Dictated Date: 11/26/2024 3:28:44 PM Prelim Date: 11/26/2024 3:29:24 PM Sign Date: 11/26/2024 3:29:24 PM Ordering Provider: LEONOR ORELLANA [facility] 08-29-2024 [facility] Office Visit (GLORIA ) DOMI SNELL ([id number]) 1950 F Date Time Provider Department 08/29/24 1:00 PM AME MACHADO During your visit today, we recorded the following information about you: Pulse Blood pressure Weight Height 53/minute 110/60 78.9 kg 1.524 m Ame Machado APRN.PROGRESSIVE ASSEMBLER AND FITTER 09/05/2024 12:44 PM Signed CHIEF COMPLAINT: Follow-up Carotid Stenosis HISTORY OF PRESENT ILLNESS: Ms. Snell is a 73 year old female who presents today for a vascular surgery follow-up visit for carotid stenosis. Patient previously followed with Dr. Tsang (R CEA 2012), and established care with Dr. Aaron following his long term. Patient denies symptoms of TIA, stroke, or amaurosis. + NSTEMI and underwent open heart surgery CABG with Dr. Aparicio on 07/12/23. +Plavix AND statin. On eliquis for a-fib. Carotid ultrasound done 08/16/24 showed R ICA <30% (PSV 92/EDV 19) and L ICA with 30-49% stenosis (PSV 137/EDV 29) PRIOR VASCULAR INTERVENTIONS: R CEA (Dr. 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 CAD (coronary artery disease) Carotid bruit left Carotid stenosis, bilateral Depressive disorder Dizziness and giddiness GERD (gastroesophageal reflux disease) HTN (hypertension) Hyperlipidemia Kidney stones ERICKA (obstructive sleep apnea) PAF (paroxysmal atrial fibrillation) (HCC) PONV (postoperative nausea and vomiting) TIA (transient ischemic attack) PAST SURGICAL HISTORY Procedure Laterality Date ARTHROSCOPY, SHOULDER, SURGI 09/11/2018 BREAST BIOPSY CABG (3) VEIN GRAFTS AND ARTERIAL GRAFT(S) 07/12/2023 CABG x 3; (SUAREZ to LAD, SVG to OM and ramus) on 07/12/23 w/ CARDIAC CATH 07/12/2018 [facility] with stenting CHOLECYSTECTOMY HYSTERECTOMY URETEROSCOPY W/ BIOPSY 12/18/2004 SOCIAL HISTORY Social History Tobacco Use Smoking status: Former Current packs/day: 0.00 Types: Cigarettes Quit date: 08/26/2017 Years since quittin.0 Smokeless tobacco: Never Vaping Use Vaping status: Never Used Substance Use Topics Alcohol use: Not Currently Drug use: Never MEDICATIONS: metoprolol tartrate, short acting, (LOPRESSOR) 50 mg tablet Take 1 tablet by mouth two times a day. Please hold for SBP < 100 or HR < 60 busPIRone (BUSPAR) 5 mg tablet Take 5 mg by mouth three times a day. magnesium chloride 64 mg magnesium tab Take 2 tablets by mouth once daily. acetaminophen (TYLENOL) 500 mg tablet Take 2 tablets by mouth every 6 hours as needed for pain. pantoprazole DR (PROTONIX) 40 mg tablet Take 1 tablet by mouth two times a day. furosemide (LASIX) 40 mg tablet Take 1 tablet by mouth two times a day for 4 days, THEN 1 tablet once daily. (Patient taking differently: Taking 80 mg once daily) ascorbic acid, vitamin C, (VITAMIN C) 500 mg tablet Take 1 tablet by mouth once daily. clopidogrel (PLAVIX) 75 mg tablet Take 1 tablet by mouth once daily. apixaban (ELIQUIS) 5 mg tab(s) Take 5 mg by mouth two times a day. DULoxetine (CYMBALTA) 20 mg capsule Take 20 mg by mouth once daily. Patient reports taking duloxetine HCL DR (Cymbalta) 1 (one) capsule by mouth, daily. atorvastatin (LIPITOR) 80 mg tablet Take 80 mg by mouth once daily. potassium chloride (K-TAB) 10 mEq tablet Take 20 mEq by mouth two times a day. ALLERGIES: ALLERGIES Allergen Reactions Doxycycline Unknown Metoprolol Unknown Oxycodone Unknown VITAL SIGNS: BP 110/60 (BP Site: Left Arm, BP Position: Sitting, BP Cuff Size: Large Adult) Pulse (!) 53 Ht 5' (1.524 m) Wt 174 lb (78.9 kg) SpO2 98% BMI 33.98 kg/m? PHYSICAL EXAM: General: Alert and oriented, No acute distress HEENT: NC/AT, EOMI, Hearing is adequate, Neck is supple with well healed R neck scar. Cardiovascular: Pulse regular. Lungs: Normal respiratory effort Extremities: No edema, no chronic skin changes, no ulceration Neurological: Normal cognition and motor skills. No weakness or sensory deficit. Vascular: B radial palpable, pedal pulses palp Diagnostic tests reviewed for today's visit: Carotid ultrasound 08/16/24 Carotid ultrasound 06/13/23 Carotid ultrasound 08/02/22 Carotid ultrasound 07/21/21 Carotid ultrasound 09/01/20 IMPRESSION: Ms. Snell is a 73 year old female with asymptomatic L ICA stenosis 30-49% by ultrasound and widely patent right caroid patch repair with no evidence of restenosis. PLAN and RECOMMENDATIONS: - reviewed results of most recent ultrasound with patient and daughter - plan for best medical therapy with current regiment of plavix AND statin - eliquis for afib - repeat carotid ultrasound in 1 year FOLLOW-UP: - 1 year after testing - call with any questions or concerns The patient is currently taking a statin: Yes The patient is currently taking aspirin: Plavix (more content not included)... Normal [facility] US CAROTID BILon 08-16-2024 US CAROTID MARISSA * * *Final Report* * * DATE OF EXAM: Aug 16 2024 11:12AM [id number] - US CAROTID MARISSA / PROCEDURE REASON: multiple diagnoses * * * * Physician Interpretation * * * * CAROTID ULTRASOUND HISTORY: Bilateral carotid artery stenosis History of right-sided carotid endarterectomy , evaluate for carotid stenosis. TECHNIQUE: Carotid ultrasound performed using grayscale, spectral Doppler and color Doppler. Images were obtained and stored in a permanent archive. COMPARISON: 08/02/2022 RESULT: Bilateral prominently calcified carotid plaque, LEFT more than RIGHT. Right side: ICA peak systolic velocity (cm/s): 92 ICA end diastolic velocity (cm/s): 19 CCA peak systolic velocity (cm/s): 63 ECA peak systolic velocity (cm/s): 90 ICA/CCA peak systolic velocity ratio: 1.5 Right side ICA stenosis estimation: <30% stenosis. Left side: ICA peak systolic velocity (cm/s): 137 ICA end diastolic velocity (cm/s): 29 CCA peak systolic velocity (cm/s): 72 ECA peak systolic velocity (cm/s): 114 ICA/CCA peak systolic velocity ratio: 1.9 Left side ICA stenosis estimation: 30-49% stenosis. Vertebral arteries: Right vertebral artery flow is antegrade. Left vertebral artery flow is antegrade. - IMPRESSION: 1. RIGHT ICA: <30% stenosis 2. LEFT ICA: 30-49% stenosis NASCET criteria used. Cobol Programmer: ANA Transcribe Date/Time: Aug 20 2024 7:10A Dictated by : FUNMI BOYLE MD This examination was interpreted and the report reviewed and electronically signed by: FUNMI BOYLE MD on Aug 20 2024 7:12AM EST [id number] Normal [facility] .GFRon 07-12-2024 Estimated Glomerular Filtration Rate 64 ml/min/1.73sqm Normal [facility] Comment on above: Result Comment: Stages of Chronic Kidney Disease (CKD) Stage Description eGFR(ml/min/1.73 sq.m.) CKD 1 Normal kidney function or >=90 normal kindney function with possible kidney damage (ex. Proteinuria) CKD 2 Kidney damage with mild loss 60-89 of kidney function CKD 3a Mild to moderate loss of kidney 45-59 function CKD 3b Moderate to severe loss of 30-44 of kindey function CKD 4 Severe loss of kidney function 15-29 CKD 5 Kidney failure <15 Note: (go live 2024) the eGFR calculation was updated to the 2020 CKD-EPI creatinine equation without a race factor to calculate the eGFR results. Performed By: #### G FR, LIPID, CMP ####[place] [id number] CMPon 07-12-2024 Albumin Level 3.4 G/dL Normal 3.4-4.8 [facility] Comment on above: Performed By: #### Jong FR LIPID, CMP ####[address] [place], [place] [address] Albumin/Globulin [Mass ratio] 1.0 {ratio} Low 1.1-2.5 [facility] Comment on above: Performed By: #### Jong FR, LIPID, CMP ####[address] [place], [place] [address] ALP [Catalytic activity/Vol] 93 U/L Normal 40-135 [facility] Comment on above: Performed By: #### Jong FR LIPID, CMP ####[address] [place], [place] [address] ALT [Catalytic activity/Vol] 17 U/L Normal 14-59 [facility] Comment on above: Performed By: #### Jong MITCHELL LIPID, CMP ####[address] [place], [place] [address] AST [Catalytic activity/Vol] 14 U/L Normal 10-40 [facility] Comment on above: Performed By: #### Jong MITCHELL LIPID, CMP ####[address] [place], [place] [address] Bili Total 0.9 mg/dL Normal 0.2-1.0 [facility] Comment on above: Result Comment: Use of this assay is not recommended for patients undergoing treatment with eltrombopag due to the potential for falsely elevated results. Performed By: #### G FR, LIPID, CMP ####[address] [place], [place] [address] BUN/Creatinine Ratio 17 ratio Normal 7-27 [facility] Comment on above: Performed By: #### Jong FR, LIPID, CMP ####[address] [place], [place] [address] Calcium [Mass/Vol] 9.6 mg/dL Normal 8.4-10.2 [facility] Comment on above: Performed By: #### G FR, LIPID, CMP ####[address] [place], [place] [address] Chloride [Moles/Vol] 107 mmol/L Normal 98-107 [facility] Comment on above: Performed By: #### G FR, LIPID, CMP ####[address] [place], [place] [address] CO2 [Moles/Vol] 30 mmol/L Normal 23-31 [facility] Comment on above: Performed By: #### G FR, LIPID, CMP ####[address] [place], [place] [address] Creatinine [Mass/Vol] 0.94 mg/dL Normal 0.51-0.95 [facility] Comment on above: Performed By: #### G FR, LIPID, CMP ####[address] [place], [place] [address] Electrolyte Balance 7.0 mEq/L Normal 4.0-15.0 [facility] Comment on above: Performed By: #### G FR, LIPID, CMP ####[address] [place], [place] [address] Globulin 3.5 G/dL Normal 2.7-4.4 [facility] Comment on above: Performed By: #### G FR, LIPID, CMP ####[address] [place], [place] [address] Glucose [Mass/Vol] 94 mg/dL Normal 83-110 [facility] Comment on above: Performed By: #### G FR, LIPID, CMP ####[address] [place], [place] [address] Potassium [Moles/Vol] 3.7 mmol/L Normal 3.5-5.1 [facility] Comment on above: Performed By: #### G FR, LIPID, CMP ####[address] [place], [place] [address] Sodium [Moles/Vol] 144 mmol/L Normal 136-145 [facility] Comment on above: Performed By: #### G FR, LIPID, CMP ####[address] [place], [place] [address] Total Protein 6.9 G/dL Normal 6.4-8.2 [facility] Comment on above: Performed By: #### G FR, LIPID, CMP ####[address] [place], [place] [address] Urea nitrogen [Mass/Vol] 16 mg/dL Normal 7-18 [facility] Comment on above: Performed By: #### G FR, LIPID, CMP ####[address] [place], [place] [address] LABORATORYOrdered By: SYSTEM SYSTEM on 07-12-2024 Albumin BCP dye [Mass/Vol] 3.4 G/dL Normal 3.4 - 4.8 G/dL AO ADM SS Albumin/Globulin [Mass ratio] 1.0 {ratio} Low 1.1 - 2.5 ratio AO ADM SS ALP [Catalytic activity/Vol] 93 U/L Normal 40 - 135 U/L AO ADM SS ALT With P-5'-P [Catalytic activity/Vol] 17 U/L Normal 14 - 59 U/L AO ADM SS AST With P-5'-P [Catalytic activity/Vol] 14 U/L Normal 10 - 40 U/L AO ADM SS Bilirubin [Mass/Vol] 0.9 mg/dL Normal 0.2 - 1 .0 mg/dL AO ADM SS Comment on above: Interpretive Data: U se of this assay is not recommended for patients undergoing treatment with eltrombopag due to the potential for falsely elevated results. Calcium [Mass/Vol] 9.6 mg/dL Normal 8.4 - 10. 2 mg/dL AO ADM SS Chloride [Moles/Vol] 107 mmol/L Normal 98 - 10 7 mmol/L AO ADM SS CO2 [Moles/Vol] 30 mmol/L Normal 23 - 31 mmol/L AO ADM SS Creatinine [Mass/Vol] 0.94 mg/dL Normal 0.51 - 0.95 mg/dL AO ADM SS Electrolyte Balance 7.0 mEq/L Normal 4.0 - 15 .0 mEq/L AO ADM SS Estimated Glomerular Filtration Rate 64 ml/min/1.73sqm Invalid Interpretation Code AO Chemistry S Comment on above: Interpretive Data: Stages of Chronic Kidney Disease (CKD) Stage Description eGFR(ml/min/1.73 sq.m.) CKD 1 Normal kidney function or >=90 normal kindney function with possible kidney damage (ex. Proteinuria) CKD 2 Kidney damage with mild loss 60-89 of kidney function CKD 3a Mild to moderate loss of kidney 45-59 function CKD 3b Moderate to severe loss of 30-44 of kindey function CKD 4 Severe loss of kidney function 15-29 CKD 5 Kidney failure <15 Note: (go live 2024) the eGFR calculation was updated to the 2020 CKD-EPI creatinine equation without a race factor to calculate the eGFR results. Globulin 3.5 G/dL Normal 2.7 - 4.4 G/dL AO ADM SS Glucose [Mass/Vol] 94 mg/dL Normal 83 - 110 mg/dL AO ADM SS Potassium [Moles/Vol] 3.7 mmol/L Normal 3.5 - 5.1 mmol/L AO ADM SS Protein [Mass/Vol] 6.9 G/dL Normal 6.4 - 8.2 G/dL AO ADM SS Sodium [Moles/Vol] 144 mmol/L Normal 136 - 145 mmol/L AO ADM SS Urea nitrogen [Mass/Vol] 16 mg/dL Normal 7 - 18 mg/dL AO ADM SS Urea nitrogen/Creatinine [Mass ratio] 17 ratio Normal 7 - 27 ratio AO ADM SS LABORATORYOrdered By: Shanelle Gonzales on 07-12-2024 Cholesterol [Mass/Vol] 167 mg/dL Normal 0 - 200 mg/dL AO ADM SS Comment on above: Interpretive Data: C holesterol Reference Interval: Less than 200 Desirable 200-239 Borderline high risk 240 and above High risk Cholesterol in HDL [Mass/Vol] 51 mg/dL Normal 40 - 60 mg/dL AO ADM SS Cholesterol in LDL [Mass/Vol] 90 mg/dL Normal 0 - 130 mg/dL AO ADM SS Triglyceride [Mass/Vol] 132 mg/dL Normal 0 - 150 mg/dL AO ADM SS Comment on above: Interpretive Data: T riglyceride Reference Interval: Less than 150 Normal 150-199 Borderline high risk 200-499 High risk 500 or higher Very high risk LIPIDon 07-12-2024 Cholesterol [Mass/Vol] 167 mg/dL Normal 0-200 [facility] Comment on above: Result Comment: Chol esterol Reference Interval: Less than 200 Desirable 200-239 Borderline high risk 240 and above High risk Performed By: #### G FR, LIPID, CMP ####[address] [place], [place] [address] Cholesterol in HDL [Mass/Vol] 51 mg/dL Normal 40-60 [facility] Comment on above: Performed By: #### G FR, LIPID, CMP ####[address] [place], [place] [address] Cholesterol in LDL [Mass/Vol] 90 mg/dL Normal 0-130 [facility] Comment on above: Performed By: #### G FR, LIPID, CMP ####[address] [place], [place] [address] Triglyceride [Mass/Vol] 132 mg/dL Normal 0-150 [facility] Comment on above: Result Comment: Trig lyceride Reference Interval: Less than 150 Normal 150-199 Borderline high risk 200-499 High risk 500 or higher Very high risk Performed By: #### G FR, LIPID, CMP ####[place] [address] [place], [place] [address] Cardiology Visit Reporton Cardiology Visit Report [facility] [address] [place] [address] OFFICE VISIT Date of Service: 06/01/24 MR#: [id number] Acct: [id number] Name: DOMI SNELL Rep #: [id number] : 1950 Provider: MARK Cardenas Age/Sex: 73/F Location: [facility] Status: Signed HPI HPI History of Present Illness Details: Patient is a 73-year-old white female that comes in today for monitoring of her cardiovascular status. The patient underwent coronary bypass graft surgery at [facility] in June 2023. She had a 60% left main trunk lesion and she received the free GORDON to the LAD a vein graft to the OM 2 and a vein graft to the ramus branch of the circumflex. In June 2018 she had a right coronary artery stent which remained patent at the time of her catheterization prior to the bypass surgery. During the bypass surgery she also received a maze procedure and the left atrial appendage was occluded. Prior to her bypass surgery the patient had had episodes of paroxysmal atrial fibrillation. She was in cardiac rehab in [place] and developed atrial fibrillation. She became short of breath with this but did not really noticed palpitations it was an increase in heart rate that was noticed by the technicians in the rehab facility. This resolved spontaneously and has not recurred. The patient has gone back to rehab without incident. The patient had a 10-day event monitor that was placed November 24 that she wore through December 04. This monitor showed that she was primarily in sinus rhythm with a average heart rate of 67 minimum heart rate was 49 maximum heart rate was 123 she had 0.03% supraventricular ectopic beats she had 7 supraventricular arrhythmias the longest event was 2 minutes and 9 seconds her PVC burden was 1.15%. The patient activated the monitor 5 times and there were no arrhythmias documented with her activations. This monitor was taken off prior to her developing the atrial fibrillation in cardiac rehab which occurred December 21. The patient remains on Eliquis and denies any nuisance bleeding. The patient has been evaluated by Dr. Carrion with the EP group at [facility]. She is status post left atrial appendage surgical occlusion with a Maze procedure at the time of her CABG June 2023. She has a follow-up with him in the next few months. Pt needed to cancel her appt with EP. Her has been in [facility] the [facility] for 3 weeks. From a cardiac standpoint she does not have any chest pain. She does not have any SOB. She does occasionly have palpitations. Intake Vital Signs 02/01/24 11:35 06/01/24 07:39 Height 5 ft 5 ft Weight: 182 lb 179 lb BMI 35.5 34.9 BP 129/75 H 131/72 H Blood Pressure Location Lt brachial Lt brachial Position Sitting Sitting Respiration 18 18 Pulse 57 L 60 Pulse Source Monitor Monitor Pulse Oximetry (%) 98 99 Oxygen Delivery Method room air Intake Visit Reasons: 4 M Hand Alterations Tailor Required: No Is patient in pain?: No Allergies doxycycline Allergy (Verified 06/01/24 11:38) Unknown amiodarone Adverse Reaction (Severe, Verified 06/01/24 11:38) dizziness, nausea,vomiting, numbness metoprolol Adverse Reaction (Verified 06/01/24 11:38) intermittent heart block oxycodone Adverse Reaction (Verified 06/01/24 11:38) vomiting Medications ???Medication ???Instructions ???Recorded ???Confirmed ???Type atorvastatin 80 mg tablet 80 mg PO QHS cholesterol #90 tabs 01/11/18 06/01/24 Rx duloxetine 20 mg capsule,delayed 20 mg PO DAILY mood 04/27/2206/01 History release apixaban 5 mg tablet (Eliquis) 5 mg PO BID blood thinner #60 tabs 01/25/23 06/01/24 Rx ascorbic acid (vitamin C) 500 mg 1 g PO DAILY@1200 vitamin 07/24/23 06/01/24 History tablet calcium carbonate (Antacid 400 mg PO BID PRN dyspepsia 06/01/24 History (calcium carbonate)) clopidogrel 75 mg tablet 75 mg PO DAILY anti platelet 07/2306/01/24 History buspirone 5 mg tablet 5 mg PO TID #90 tabs 08/01/2305/15 Rx pantoprazole 40 mg tablet,delayed 40 mg PO BID #60 tabs 08/01/23 Rx release amlodipine 5 mg tablet (Norvasc) 5 mg PO DAILY #30 tabs 09/01/23 Rx furosemide 40 mg tablet 40 mg PO DAILY #90 tabs 09/08/23 0 06/01/24 Rx metoprolol tartrate 50 mg tablet 50 mg PO BID blood pressure #180 0 10/31/23 06/01/24 Rx tabs potassium chloride 10 mEq 10 meq PO QDAY 01/02/24 06/01/24 H istory tablet,extended release cholecalciferol (vitamin D3) 1,000 mcg PO DAILY 02/01/24 History Ejection fraction %: 65 Have you fallen in the past year?: No [facility] Medical History (Updated 06/01/24 @ 11:44 by Tesha FLORES, PA) Paroxysmal atrial fibrillation Carotid artery disease Atherosclerotic heart disease nativ (more content not included)... [facility] 05-25-2024 [facility] Telephone (AGVASACC) ALISDOMI ([id number]) 1950 F Date Time Provider Department 05/25/24 INOCENCIA AARON During your visit today, we recorded the following information about you: MuñozAmarilis 05/25/2024 11:41 AM Signed LVM to schedule with on Annual F/UP for Bilateral carotid artery stenosis, Hx of right-sided carotid endarterectomy with US CAROTID BILAT 08/16/2024 *CB* Allergies As of Date: 05/25/2024 Noted Allergy Reaction DOXYCYCLINE 08/24/2019 16 - Unknown METOPROLOL 08/27/2019 16 - Unknown OXYCODONE 08/24/2019 16 - Unknown Date Reviewed: 11/09/2023 Reviewed by: Mindi Ontiveros MA - Fully Assessed Reason for Visit: Appointment [186] Cmt: Annual with testing Prescriptions as of 05/25/2024 - metoprolol tartrate, short acting, (LOPRESSOR) 50 mg tablet Take 1 tablet by mouth two times a day. Please hold for SBP < 100 or HR < 60 - busPIRone (BUSPAR) 5 mg tablet Take 5 mg by mouth three times a day. - mupirocin (BACTROBAN) 2 % ointment APPLY TO AFFECTED AREA 3 TIMES A DAY FOR 5 DAYS - ondansetron (ZOFRAN) 4 mg tablet Take 4 mg by mouth every 8 hours as needed. - traMADol (ULTRAM) 50 mg tablet Take 50 mg by mouth every 8 hours as needed. - magnesium chloride 64 mg magnesium tab Take 2 tablets by mouth once daily. - traZODone (DESYREL) 50 mg tablet Take 50 mg by mouth as needed. - saliva substitute combo no.9 (BIOTENE DRY MOUTH ORAL RINSE) mwsh Use 15 mL as instructed two times a day as needed. - acetaminophen (TYLENOL) 500 mg tablet Take 2 tablets by mouth every 6 hours as needed for pain. - lidocaine (SALONPAS) 4 % patch Apply 1 Patch as directed once daily as needed. Can cut patch lengthwise and place on area of discomfort. Please remove after 12 hours of use, can replace after patch has been off for 12 hours. - pantoprazole DR (PROTONIX) 40 mg tablet Take 1 tablet by mouth two times a day. - melatonin 3 mg tablet Take 3 mg by mouth at bedtime as needed for insomnia. - furosemide (LASIX) 40 mg tablet Take 1 tablet by mouth two times a day for 4 days, THEN 1 tablet once daily. - ascorbic acid, vitamin C, (VITAMIN C) 500 mg tablet Take 1 tablet by mouth once daily. - clopidogrel (PLAVIX) 75 mg tablet Take 1 tablet by mouth once daily. - apixaban (ELIQUIS) 5 mg tab(s) Take 5 mg by mouth two times a day. - DULoxetine (CYMBALTA) 20 mg capsule Take 20 mg by mouth once daily. Patient reports taking duloxetine HCL DR (Cymbalta) 1 (one) capsule by mouth, daily. - atorvastatin (LIPITOR) 80 mg tablet Take 80 mg by mouth once daily. - potassium chloride (K-TAB) 10 mEq tablet Take 20 mEq by mouth two times a day. Meds Comments as of 07/20/2023: 07/20/23: severe interaction between plaxiz and elequis- notified Problem List As Of Date 05/25/2024 Noted Resolved NSTEMI (non-ST elevated myocardial infarction) *07/07/2023 07/09/2023 Coronary artery disease involving chilkat will*07/07/2023 Primary hypertension [I10] 07/07/2023 Hyperlipidemia [E78.5] 07/07/2023 Paroxysmal atrial fibrillation (HCC) [I48.0] 07/07/2023 Carotid artery disease (HCC) [I77.9] 07/07/2023 H/O carotid endarterectomy [Z98.890] 07/07/2023 Tobacco abuse [Z72.0] 07/07/2023 Obesity, Class II, BMI 35-39.9 [E66.812] 07/07/2023 Nicotine use disorder, F17.2 [F17.200] 07/10/2023 Respiratory insufficiency [R06.89] 07/12/2023 07/12/2023 Postprocedural hypotension [I95.81] 07/12/2023 07/12/2023 S/P CABG x 3 [Z95.1] 07/12/2023 ERICKA (obstructive sleep apnea) [G47.33] 07/13/2023 Obesity, Class III, BMI >= 40 [E66.01] 07/14/2023 Acute respiratory failure with hypoxia (HCC) [J*07/16/2023 07/18/2023 Acute pulmonary edema (HCC) [J81.0] 07/16/2023 07/18/2023 Tobacco abuse counseling [Z71.6] 07/16/2023 Morbid obesity (HCC) [E66.01] 07/16/2023 Paroxysmal A-fib (HCC) [I48.0] 07/16/2023 Atelectasis [J98.11] 07/18/2023 Encounter Status:Closed by AMARILIS MUÑOZ on 05/25/24 [facility] .GFRon 04-16-2024 Estimated Glomerular Filtration Rate 67 ml/min/1.73sqm [facility] Comment on above: Result Comment: Stages of Chronic Kidney Disease (CKD) Stage Description eGFR(ml/min/1.73 sq.m.) CKD 1 Normal kidney function or >=90 normal kindney function with possible kidney damage (ex. Proteinuria) CKD 2 Kidney damage with mild loss 60-89 of kidney function CKD 3a Mild to moderate loss of kidney 45-59 function CKD 3b Moderate to severe loss of 30-44 of kindey function CKD 4 Severe loss of kidney function 15-29 CKD 5 Kidney failure <15 Note: (go live 2024) the eGFR calculation was updated to the 2020 CKD-EPI creatinine equation without a race factor to calculate the eGFR results. Performed By: #### A 1C, CMP, LIPID, GFR, VIDH #### [facility] [address] [place], [place] [address] A1Con 04-16-2024 Glucose [Mass/Vol] 114 mg/dL Normal [facility] Comment on above: Result Comment: Hawa mated Average Glucose calculated by equation ((28.7xA1C)-46.7) Estimated average glucose (eAG) is a calculated value from Hemoglobin A1C and is player services representative of the average blood glucose level in the last 2-3 month period. Normal range: less than 114 mg/dL Performed By: #### A 1C, CMP, LIPID, GFR, VIDH #### [address] [address] HbA1c (Bld) [Mass fraction] 5.6 % Normal 4.3-6.4 [facility] Comment on above: Performed By: #### A 1C, CMP, LIPID, GFR, VIDH #### [address] [address] CMPon 04-16-2024 Albumin Level 3.4 G/dL Normal 3.4-4.8 [facility] Comment on above: Performed By: #### A 1C, CMP, LIPID, GFR, VIDH #### [place] [id number] Albumin/Globulin [Mass ratio] 0.9 {ratio} Low 1.1-2.5 [facility] Comment on above: Performed By: #### A 1C, CMP, LIPID, GFR, VIDH #### [place] [address] ALP [Catalytic activity/Vol] 101 U/L Normal 40-135 [facility] Comment on above: Performed By: #### A 1C, CMP, LIPID, GFR, VIDH #### [place] [id number] ALT [Catalytic activity/Vol] 22 U/L Normal 14-59 [facility] Comment on above: Performed By: #### A 1C, CMP, LIPID, GFR, VIDH #### [place] [id number] AST [Catalytic activity/Vol] 16 U/L Normal 10-40 [facility] Comment on above: Performed By: #### A 1C, CMP, LIPID, GFR, VIDH #### [place] [address] Bili Total 0.7 mg/dL Normal 0.2-1.0 [facility] Comment on above: Result Comment: Use of this assay is not recommended for patients undergoing treatment with eltrombopag due to the potential for falsely elevated results. Performed By: #### A 1C, CMP, LIPID, GFR, VIDH #### [address] [address] BUN/Creatinine Ratio 15 ratio Normal 7-27 [facility] Comment on above: Performed By: #### A 1C, CMP, LIPID, GFR, VIDH #### [address] [address] Calcium [Mass/Vol] 9.5 mg/dL Normal 8.4-10.2 [facility] Comment on above: Performed By: #### A 1C, CMP, LIPID, GFR, VIDH #### [place] [address] Chloride [Moles/Vol] 108 mmol/L High 98-107 [facility] Comment on above: Performed By: #### A 1C, CMP, LIPID, GFR, VIDH #### [place] [address] CO2 [Moles/Vol] 30 mmol/L Normal 23-31 [facility] Comment on above: Performed By: #### A 1C, CMP, LIPID, GFR, VIDH #### [place] [address] Creatinine [Mass/Vol] 0.91 mg/dL Normal 0.55-1.02 [facility] Comment on above: Result Comment: Test ing performed on Siemens Dimension EXL analyzer using a modified kinetic Ubaldo technique. Performed By: #### A 1C, CMP, LIPID, GFR, VIDH #### [place] [address] Electrolyte Balance 4.0 mEq/L Normal 4.0-15.0 [facility] Comment on above: Performed By: #### A 1C, CMP, LIPID, GFR, VIDH #### [place] [address] Globulin 3.6 G/dL Normal 1.5-3.8 [facility] Comment on above: Performed By: #### A 1C, CMP, LIPID, GFR, VIDH #### [address] [place] [address] Glucose [Mass/Vol] 99 mg/dL Normal 83-110 [facility] Comment on above: Performed By: #### A 1C, CMP, LIPID, GFR, VIDH #### [address] [address] Potassium [Moles/Vol] 4.2 mmol/L Normal 3.5-5.1 [facility] Comment on above: Performed By: #### A 1C, CMP, LIPID, GFR, VIDH #### [address] [address] Sodium [Moles/Vol] 142 mmol/L Normal 136-145 [facility] Comment on above: Performed By: #### A 1C, CMP, LIPID, GFR, VIDH #### [address] [address] Total Protein 7.0 G/dL Normal 6.4-8.2 [facility] Comment on above: Performed By: #### A 1C, CMP, LIPID, GFR, VIDH #### [address] [address] Urea nitrogen [Mass/Vol] 14 mg/dL Normal 7-18 [facility] Comment on above: Performed By: #### A 1C, CMP, LIPID, GFR, VIDH #### [address] [address] LABORATORYOrdered By: SYSTEM SYSTEM on 04-16-2024 25-hydroxyvitamin D3 [Mass/Vol] 30.8 ng/mL Invalid Interpretation Code AO ADM SS Comment on above: Interpretive Data: I nterpretive Values Based on Total 25(OH) Vitamin D: Deficient <20 ng/mL Insufficient 20 - <30 ng/mL Sufficient 30-100 ng/mL Albumin BCP dye [Mass/Vol] 3.4 G/dL Normal 3.4 - 4.8 G/dL AO ADM SS Albumin/Globulin [Mass ratio] 0.9 {ratio} Low 1.1 - 2.5 ratio AO ADM SS ALP [Catalytic activity/Vol] 101 U/L Normal 40 - 135 U/L AO ADM SS ALT With P-5'-P [Catalytic activity/Vol] 22 U/L Normal 14 - 59 U/L AO ADM SS AST With P-5'-P [Catalytic activity/Vol] 16 U/L Normal 10 - 40 U/L AO ADM SS Bilirubin [Mass/Vol] 0.7 mg/dL Normal 0.2 - 1 .0 mg/dL AO ADM SS Comment on above: Interpretive Data: U se of this assay is not recommended for patients undergoing treatment with eltrombopag due to the potential for falsely elevated results. Calcium [Mass/Vol] 9.5 mg/dL Normal 8.4 - 10. 2 mg/dL AO ADM SS Chloride [Moles/Vol] 108 mmol/L High 98 - 10 7 mmol/L AO ADM SS CO2 [Moles/Vol] 30 mmol/L Normal 23 - 31 mmol/L AO ADM SS Creatinine [Mass/Vol] 0.91 mg/dL Normal 0.55 - 1.02 mg/dL AO ADM SS Comment on above: Interpretive Data: T esting performed on Siemens Dimension EXL analyzer using a modified kinetic Ubaldo technique. Electrolyte Balance 4.0 mEq/L Normal 4.0 - 15 .0 mEq/L AO ADM SS Estimated Glomerular Filtration Rate 67 ml/min/1.73sqm Invalid Interpretation Code AO Chemistry S Comment on above: Interpretive Data: Stages of Chronic Kidney Disease (CKD) Stage Description eGFR(ml/min/1.73 sq.m.) CKD 1 Normal kidney function or >=90 normal kindney function with possible kidney damage (ex. Proteinuria) CKD 2 Kidney damage with mild loss 60-89 of kidney function CKD 3a Mild to moderate loss of kidney 45-59 function CKD 3b Moderate to severe loss of 30-44 of kindey function CKD 4 Severe loss of kidney function 15-29 CKD 5 Kidney failure <15 Note: (go live 2024) the eGFR calculation was updated to the 2020 CKD-EPI creatinine equation without a race factor to calculate the eGFR results. Globulin 3.6 G/dL Normal 1.5 - 3.8 G/dL AO ADM SS Glucose [Mass/Vol] 99 mg/dL Normal 83 - 110 mg/dL AO ADM SS Glucose [Mass/Vol] 114 mg/dL Invalid Interpretation Code AO Chemistry S Comment on above: Interpretive Data: E stimated average glucose (eAG) is a calculated value from Hemoglobin A1C and is player services representative of the average blood glucose level in the last 2-3 month period. Normal range: less than 114 mg/dL HbA1c (Bld) [Mass fraction] 5.6 % Normal 4.3 - 6.4 % AO ADM SS Potassium [Moles/Vol] 4.2 mmol/L Normal 3.5 - 5.1 mmol/L AO ADM SS Protein [Mass/Vol] 7.0 G/dL Normal 6.4 - 8.2 G/dL AO ADM SS Sodium [Moles/Vol] 142 mmol/L Normal 136 - 145 mmol/L AO ADM SS Urea nitrogen [Mass/Vol] 14 mg/dL Normal 7 - 18 mg/dL AO ADM SS Urea nitrogen/Creatinine [Mass ratio] 15 ratio Normal 7 - 27 ratio AO ADM SS LABORATORYOrdered By: Shanelle Gonzales on 04-16-2024 Cholesterol [Mass/Vol] 214 mg/dL High 0 - 200 mg/dL AO ADM SS Comment on above: Interpretive Data: C holesterol Reference Interval: Less than 200 Desirable 200-239 Borderline high risk 240 and above High risk Cholesterol in HDL [Mass/Vol] 58 mg/dL Normal 40 - 60 mg/dL AO ADM SS Cholesterol in LDL [Mass/Vol] 128 mg/dL Normal 0 - 130 mg/dL AO ADM SS Triglyceride [Mass/Vol] 140 mg/dL Normal 0 - 150 mg/dL AO ADM SS Comment on above: Interpretive Data: T riglyceride Reference Interval: Less than 150 Normal 150-199 Borderline high risk 200-499 High risk 500 or higher Very high risk LIPIDon 04-16-2024 Cholesterol [Mass/Vol] 214 mg/dL High 0-200 [facility] Comment on above: Result Comment: Chol esterol Reference Interval: Less than 200 Desirable 200-239 Borderline high risk 240 and above High risk Performed By: #### A 1C, CMP, LIPID, GFR, VIDH ####[place] [address] [place], [place] [address] Cholesterol in HDL [Mass/Vol] 58 mg/dL Normal 40-60 [facility] Comment on above: Performed By: #### A 1C, CMP, LIPID, GFR, VIDH ####[place] [address] [place], [place] [address] Cholesterol in LDL [Mass/Vol] 128 mg/dL Normal 0-130 [facility] Comment on above: Performed By: #### A 1C, CMP, LIPID, GFR, VIDH ####[address] [place], [place] [address] Triglyceride [Mass/Vol] 140 mg/dL Normal 0-150 [facility] Comment on above: Result Comment: Trig lyceride Reference Interval: Less than 150 Normal 150-199 Borderline high risk 200-499 High risk 500 or higher Very high risk Performed By: #### A 1C, CMP, LIPID, GFR, VIDH ####[address] [place], [place] [address] VIDHon 04-16-2024 Vit. D 25-Hydroxy 30.8 ng/mL Normal [facility] Comment on above: Result Comment: Inte rpretive Values Based on Total 25(OH) Vitamin D: Deficient <20 ng/mL Insufficient 20 - <30 ng/mL Sufficient 30-100 ng/mL Performed By: #### A 1C, CMP, LIPID, GFR, VIDH ####[address] [place], [place] [address] Cardiology Visit Reporton Cardiology Visit Report [facility] [address] [place], [place] [address] OFFICE VISIT Date of Service: 02/01/24 MR#: [id number] Acct: [id number] Name: DOMI SNELL Rep #: [id number] : 1950 Provider: MARK Cardenas Age/Sex: 73/F Location: [facility] Status: Signed HPI HPI History of Present Illness Details: Patient is a 73-year-old white female that comes in today for monitoring of her cardiovascular status. The patient underwent coronary bypass graft surgery at [facility] in June 2023. She had a 60% left main trunk lesion and she received the free GORDON to the LAD a vein graft to the OM 2 and a vein graft to the ramus branch of the circumflex. In June 2018 she had a right coronary artery stent which remained patent at the time of her catheterization prior to the bypass surgery. During the bypass surgery she also received a maze procedure and the left atrial appendage was occluded. Prior to her bypass surgery the patient had had episodes of paroxysmal atrial fibrillation. She was in cardiac rehab in [place] and developed atrial fibrillation. She became short of breath with this but did not really noticed palpitations it was an increase in heart rate that was noticed by the technicians in the rehab facility. This resolved spontaneously and has not recurred. The patient has gone back to rehab without incident. The patient had a 10-day event monitor that was placed November 24 that she wore through December 04. This monitor showed that she was primarily in sinus rhythm with a average heart rate of 67 minimum heart rate was 49 maximum heart rate was 123 she had 0.03% supraventricular ectopic beats she had 7 supraventricular arrhythmias the longest event was 2 minutes and 9 seconds her PVC burden was 1.15%. The patient activated the monitor 5 times and there were no arrhythmias documented with her activations. This monitor was taken off prior to her developing the atrial fibrillation in cardiac rehab which occurred December 21. The patient remains on Eliquis and denies any nuisance bleeding. The patient has been evaluated by Dr. Carrion with the EP group at [facility]. She is status post left atrial appendage surgical occlusion with a Maze procedure at the time of her CABG June 2023. She has a follow-up with him in the next few months. She feels over she is doing better. She is done with cardiac rehab and plans on joining the [facility] after the holidays. She does feel much better since her surgery. Intake Vital Signs 10/31/23 10:55 01/02/24 15:12 02/01/24 11:35 Height 5 ft 5 ft 5 ft Weight: 182 lb BMI 35.5 BP 129/75 H Blood Pressure Location Lt brachial Position Sitting Respiration 18 Pulse 57 L Pulse Source Monitor Pulse Oximetry (%) 98 Oxygen Delivery Method room air Intake Visit Reasons: 3 M FU Hand Alterations Tailor Required: No Accompanied by: Self Is patient in pain?: No Allergies doxycycline Allergy (Verified 02/01/24 11:36) Unknown amiodarone Adverse Reaction (Severe, Verified 02/01/24 11:36) dizziness, nausea,vomiting, numbness metoprolol Adverse Reaction (Verified 02/01/24 11:36) intermittent heart block oxycodone Adverse Reaction (Verified 02/01/24 11:36) vomiting Medications ???Medication ???Instructions ???Recorded ???Confirmed ???Type atorvastatin 80 mg tablet 80 mg PO QHS cholesterol #90 tabs 01/11/18 02/01/24 Rx duloxetine 20 mg capsule,delayed 20 mg PO DAILY mood 04/27/22 02/01/24 History release apixaban 5 mg tablet (Eliquis) 5 mg PO BID blood thinner #60 tabs 01/25/23 02/01/24 Rx ascorbic acid (vitamin C) 500 mg 1 g PO DAILY@1200 vitamin 07/24/23 02/01/24 History tablet calcium carbonate (Antacid 400 mg PO BID PRN dyspepsia 07/24/23 02/01/24 History (calcium carbonate)) clopidogrel 75 mg tablet 75 mg PO DAILY anti platelet 07/24/23 02/01/24 History tramadol 50 mg tablet 50 mg PO Q8H PRN pain 07/24/23 02/01/24 History buspirone 5 mg tablet 5 mg PO TID #90 tabs 08/01/23 02/01/24 Rx pantoprazole 40 mg tablet,delayed 40 mg PO BID #60 tabs 08/01/23 02/01/24 Rx release trazodone 100 mg tablet 100 mg PO QHS PRN insomnia #10 tabs 08/01/23 02/01/24 Rx amlodipine 5 mg tablet (Norvasc) 5 mg PO DAILY #30 tabs 09/01/23 02/01/24 Rx furosemide 40 mg tablet 40 mg PO DAILY #90 tabs 09/08/23 02/01/24 Rx metoprolol tartrate 50 mg tablet 50 mg PO BID blood pressure #180 10/31/23 02/01/24 Rx tabs potassium chloride 10 mEq 10 meq PO QDAY 01/02/24 02/01/24 History tablet,extended release cholecalciferol (vitamin D3) 1,000 mcg PO DAILY 02/01/24 02/01/24 History Ejection fraction %: 65 Have you fallen in the past year?: No Nurse's Note: Requests discussing switching from Eliquis to a more affordable medication. [facility] Medical History (Revie (more content not included)... Normal [facility] 12 Lead EKG performed by [facility] on 01-02-2024 12 Lead EKG performed by [facility] [address] [place] [address] 12 Lead EKG performed by [facility] 01/02/24 1512 MR#: [id number] Acct: [id number] Name: DOMI SNELL Rep #: [id number] : 1950 73 From: Javier Wilhelm MD Attending Dr: Dr. Javier Wilhelm MD Status: DE P AMB Ordering Dr: Javier Wilhelm MD Date: 01/02/24 [place] [facility] Sex: F C Admitted: [facility]/12 Lead EKG performed by [facility] ECG Report Interpretation ---Sinus Bradycardia Minor T wave changesPROBABLY NORMALElectronically signed on 01/02/2024 at 16:[address] Javier Wilhelm [employer] Software Version [id number] 01/02/24 1642 Date Javier Wilhelm MD CC: CHRISTIAN Orellana Date Dictated: 01/02/241511 Date Transcribed: 01/02/241511 Cobol Programmer: Signed Normal [facility] Cardiology Visit Reporton Cardiology Visit Report [facility] [address] [place] [address] OFFICE VISIT Date of Service: 01/02/24 MR#: [id number] Acct: [id number] Name: DOMI SNELL Rep #: [id number] : 1950 Provider: Dr. Javier martinez MD Age/Sex: 73/F [place] [facility] Status: Signed with Addenda ADDENDUM by Dr. Javier Wilhelm MD on 01/02/24 at 1635 HPI History of Present Illness Details: ECG in the office today shows sinus bradycardia 59 bpm otherwise normal. Assessment and Plan Assessment and Plan (1) S/P CABG x 3: Status: Acute Comment: free GORDON to the LAD, SVG to the RI, SVG to the OM 2, left-sided Maze procedure, left atrial appendage clip 06/2023 (2) Hyperlipidemia: Status: Acute Qualifiers: Hyperlipidemia type: pure hypercholesterolemia Qualified Code(s): E78.00 - Pure hypercholesterolemia, unspecified; E78.0 - Pure hypercholesterolemia (3) Hypertension: Status: Chronic Qualifiers: Hypertension type: essential hypertension Qualified Code(s): I10 - Essential (primary) hypertension (4) Paroxysmal atrial fibrillation: Status: Acute Comment: left-sided Maze procedure, left atrial appendage clip 06/2023 Orders: Orders 12 Lead EKG performed by [facility] Today I10 - Essential (primary) hypertension, I48.0 - Paroxysmal atrial fibrillation, Z95.1 - Presence of aortocoronary bypass graft Plan Details Follow Up: 3 Months (With [facility].) 01/02/24 1635 Date Javier Wilhelm MD cc: CHRISTIAN Orellana * Signed HPI HPI History of Present Illness Details: Patient is a 73-year-old white female that comes in today for monitoring of her cardiovascular status. The patient underwent coronary bypass graft surgery at [facility] in June 2023. She had a 60% left main trunk lesion and she received the free GORDON to the LAD a vein graft to the OM 2 and a vein graft to the ramus branch of the circumflex. In June 2018 she had a right coronary artery stent which remained patent at the time of her catheterization prior to the bypass surgery. During the bypass surgery she also received a maze procedure and the left atrial appendage was occluded. Prior to her bypass surgery the patient had had episodes of paroxysmal atrial fibrillation. She was in rehab in [facility] and developed atrial fibrillation. She became short of breath with this but did not really noticed palpitations it was an increase in heart rate that was noticed by the technicians in the rehab facility. This resolved spontaneously and has not recurred. The patient has gone back to rehab without incident. Today was her last day of rehab and she did get some mild dyspnea on exertion during some of her exercises today. Her rhythm remained sinus rhythm. The patient had a 10-day event monitor that was placed November 24 that she wore through December 04. This monitor showed that she was primarily in sinus rhythm with a average heart rate of 67 minimum heart rate was 49 maximum heart rate was 123 she had 0.03% supraventricular ectopic beats she had 7 supraventricular arrhythmias the longest event was 2 minutes and 9 seconds her PVC burden was 1.15%. The patient activated the monitor 5 times and there were no arrhythmias documented with her activations. This monitor was taken off prior to her developing the atrial fibrillation in cardiac rehab which occurred December 21. The patient remains on Eliquis and denies any nuisance bleeding. The patient has been evaluated by Dr. Carrion with the EP group at [facility]. He had placed the event monitor and is due to see her back in the office in the near future. I will defer any long-term management of this paroxysmal atrial fibrillation which has been short-lived to the EP decisions. Currently she is tolerating her medical regiment with metoprolol and Eliquis. She is status post left atrial appendage surgical occlusion with a Maze procedure at the time of her CABG June 2023. Intake Vital Signs 10/31/23 10:55 01/02/24 15:12 Height 5 ft 5 ft Weight: 180 lb BMI 35.2 BP 117/61 Blood Pressure Location Lt brachial Position Sitting Respiration 18 Pulse 59 L Pulse Source NIBP Intake Visit Reasons: Afib and PVCs Hand Alterations Tailor Required: No Is patient in pain?: No Allergies doxycycline Allergy (Verified 01/02/24 15:16) Unknown amiodarone Adverse Reaction (Severe, Verified 01/02/24 15:16) dizziness, nausea,vomiting, numbness metoprolol Adverse Reaction (Verified 01/02/24 15:16) intermittent heart block oxycodone Adverse Reaction (Verified 01/02/24 15:16) vomiting Medications ???Medication ???Instructions ???Recorded ???Confirmed ???Type atorvastatin 80 mg tablet 80 mg PO QHS cholesterol #90 tabs 01/11/18 01/02/24 Rx du (more content not included)... Normal [facility] .GFRon 12-15-2023 GFR 75 ml/min/1.73sqm Normal [facility] Comment on above: Result Comment: GFR Population mean for , Non- Americans Ages 20-29 = 116 mL/min/1.73 sq.m. Ages 30-39 = 107 mL/min/1.73 sq.m. Ages 40-49 = 99 mL/min/1.73 sq.m. Ages 50-59 = 93 mL/min/1.73 sq.m. Ages 60-69 = 85 mL/min/1.73 sq.m. Ages 70+ = 75 mL/min/1.73 sq.m. Chronic Kidney Disease: Less than 60 mL/min/1.73 square meters End Stage Renal Disease: Less than 15 mL/min/1.73 square meters Performed By: #### L IPID, CMP, GFR, A1C, VIDH #### [address] [place], [place] [address] GFR Non- 62 ml/min/1.73sqm Normal [facility] Comment on above: Result Comment: GFR Population mean for , Non- Americans Ages 20-29 = 116 mL/min/1.73 sq.m. Ages 30-39 = 107 mL/min/1.73 sq.m. Ages 40-49 = 99 mL/min/1.73 sq.m. Ages 50-59 = 93 mL/min/1.73 sq.m. Ages 60-69 = 85 mL/min/1.73 sq.m. Ages 70+ = 75 mL/min/1.73 sq.m. Chronic Kidney Disease: Less than 60 mL/min/1.73 square meters End Stage Renal Disease: Less than 15 mL/min/1.73 square meters Performed By: #### L IPID, CMP, GFR, A1C, VIDH #### [address] [place], [place] [address] A1Con 12-15-2023 Glucose [Mass/Vol] 117 mg/dL Normal [facility] Comment on above: Result Comment: Hawa mated Average Glucose calculated by equation ((28.7xA1C)-46.7) Estimated average glucose (eAG) is a calculated value from Hemoglobin A1C and is player services representative of the average blood glucose level in the last 2-3 month period. Normal range: less than 114 mg/dL Performed By: #### L IPID, CMP, GFR, A1C, VIDH #### [address] [address] HbA1c (Bld) [Mass fraction] 5.7 % Normal 4.3-6.4 [facility] Comment on above: Performed By: #### L IPID, CMP, GFR, A1C, VIDH #### [address] [address] CMPon 12-15-2023 Albumin Level 3.3 G/dL Low 3.4-4.8 [facility] Comment on above: Performed By: #### L IPID, CMP, GFR, A1C, VIDH #### [place] [address] Albumin/Globulin [Mass ratio] 1.1 {ratio} Normal 1.1-2.5 [facility] Comment on above: Performed By: #### L IPID, CMP, GFR, A1C, VIDH #### [place] [address] ALP [Catalytic activity/Vol] 113 U/L Normal 40-135 [facility] Comment on above: Performed By: #### L IPID, CMP, GFR, A1C, VIDH #### [place] [id number] ALT [Catalytic activity/Vol] 22 U/L Normal 14-59 [facility] Comment on above: Performed By: #### L IPID, CMP, GFR, A1C, VIDH #### [place] [id number] AST [Catalytic activity/Vol] 15 U/L Normal 10-40 [facility] Comment on above: Performed By: #### L IPID, CMP, GFR, A1C, VIDH #### [place] [address] Bili Total 0.8 mg/dL Normal 0.2-1.0 [facility] Comment on above: Result Comment: Use of this assay is not recommended for patients undergoing treatment with eltrombopag due to the potential for falsely elevated results. Performed By: #### L IPID, CMP, GFR, A1C, VIDH #### [address] [address] BUN/Creatinine Ratio 15 ratio Normal 7-27 [facility] Comment on above: Performed By: #### L IPID, CMP, GFR, A1C, VIDH #### [address] [address] Calcium [Mass/Vol] 9.2 mg/dL Normal 8.4-10.2 [facility] Comment on above: Performed By: #### L IPID, CMP, GFR, A1C, VIDH #### [address] [address] Chloride [Moles/Vol] 106 mmol/L Normal 98-107 [facility] Comment on above: Performed By: #### L IPID, CMP, GFR, A1C, VIDH #### [place] [address] CO2 [Moles/Vol] 30 mmol/L Normal 23-31 [facility] Comment on above: Performed By: #### L IPID, CMP, GFR, A1C, VIDH #### [address] [address] Creatinine [Mass/Vol] 0.89 mg/dL Normal 0.55-1.02 [facility] Comment on above: Result Comment: Test ing performed on Siemens Dimension EXL analyzer using a modified kinetic Ubaldo technique. Performed By: #### L IPID, CMP, GFR, A1C, VIDH #### [address] [address] Electrolyte Balance 8.0 mEq/L Normal 4.0-15.0 [facility] Comment on above: Performed By: #### L IPID, CMP, GFR, A1C, VIDH #### [address] [address] Globulin 3.0 G/dL Normal [facility] Comment on above: Performed By: #### L IPID, CMP, GFR, A1C, VIDH #### [address] [address] Glucose [Mass/Vol] 101 mg/dL Normal 83-110 [facility] Comment on above: Performed By: #### L IPID, CMP, GFR, A1C, VIDH #### [address] [place], [place] [address] Potassium [Moles/Vol] 3.4 mmol/L Low 3.5-5.1 [facility] Comment on above: Performed By: #### L IPID, CMP, GFR, A1C, VIDH #### [address] [address] Sodium [Moles/Vol] 144 mmol/L Normal 136-145 [facility] Comment on above: Performed By: #### L IPID, CMP, GFR, A1C, VIDH #### [address] [address] Total Protein 6.3 G/dL Low 6.4-8.2 [facility] Comment on above: Performed By: #### L IPID, CMP, GFR, A1C, VIDH #### [address] [address] Urea nitrogen [Mass/Vol] 13 mg/dL Normal 7-18 [facility] Comment on above: Performed By: #### L IPID, CMP, GFR, A1C, VIDH #### [address] [address] LABORATORYOrdered By: SYSTEM SYSTEM on 12-15-2023 25-hydroxyvitamin D3 [Mass/Vol] 30.6 ng/mL Invalid Interpretation Code AO ADM SS Comment on above: Interpretive Data: I nterpretive Values Based on Total 25(OH) Vitamin D: Deficient <20 ng/mL Insufficient 20 - <30 ng/mL Sufficient 30-100 ng/mL Albumin BCP dye [Mass/Vol] 3.3 G/dL Low 3.4 - 4.8 G/dL AO ADM SS Albumin/Globulin [Mass ratio] 1.1 {ratio} Normal 1.1 - 2.5 ratio AO ADM SS ALP [Catalytic activity/Vol] 113 U/L Normal 40 - 135 U/L AO ADM SS ALT With P-5'-P [Catalytic activity/Vol] 22 U/L Normal 14 - 59 U/L AO ADM SS AST With P-5'-P [Catalytic activity/Vol] 15 U/L Normal 10 - 40 U/L AO ADM SS Bilirubin [Mass/Vol] 0.8 mg/dL Normal 0.2 - 1 .0 mg/dL AO ADM SS Comment on above: Interpretive Data: U se of this assay is not recommended for patients undergoing treatment with eltrombopag due to the potential for falsely elevated results. Calcium [Mass/Vol] 9.2 mg/dL Normal 8.4 - 10. 2 mg/dL AO ADM SS Chloride [Moles/Vol] 106 mmol/L Normal 98 - 10 7 mmol/L AO ADM SS CO2 [Moles/Vol] 30 mmol/L Normal 23 - 31 mmol/L AO ADM SS Creatinine [Mass/Vol] 0.89 mg/dL Normal 0.55 - 1.02 mg/dL AO ADM SS Comment on above: Interpretive Data: T esting performed on Siemens Dimension EXL analyzer using a modified kinetic Ubaldo technique. Electrolyte Balance 8.0 mEq/L Normal 4.0 - 15 .0 mEq/L AO ADM SS GFR/1.73 sq M.predicted among blacks MDRD (S/P/Bld) [Vol rate/Area] 75 ml/min/1.73sqm Invalid Interpretation Code AO Chemistry S Comment on above: Interpretive Data: GFR Population mean for , Non- Americans Ages 20-29 = 116 mL/min/1.73 sq.m. Ages 30-39 = 107 mL/min/1.73 sq.m. Ages 40-49 = 99 mL/min/1.73 sq.m. Ages 50-59 = 93 mL/min/1.73 sq.m. Ages 60-69 = 85 mL/min/1.73 sq.m. Ages 70+ = 75 mL/min/1.73 sq.m. Chronic Kidney Disease: Less than 60 mL/min/1.73 square meters End Stage Renal Disease: Less than 15 mL/min/1.73 square meters GFR/1.73 sq M.predicted among non-blacks MDRD (S/P/Bld) [Vol rate/Area] 62 ml/min/1.73sqm Invalid Interpretation Code AO Chemistry S Comment on above: Interpretive Data: GFR Population mean for , Non- Americans Ages 20-29 = 116 mL/min/1.73 sq.m. Ages 30-39 = 107 mL/min/1.73 sq.m. Ages 40-49 = 99 mL/min/1.73 sq.m. Ages 50-59 = 93 mL/min/1.73 sq.m. Ages 60-69 = 85 mL/min/1.73 sq.m. Ages 70+ = 75 mL/min/1.73 sq.m. Chronic Kidney Disease: Less than 60 mL/min/1.73 square meters End Stage Renal Disease: Less than 15 mL/min/1.73 square meters Globulin 3.0 G/dL Invalid Interpretation Code AO ADM SS Glucose [Mass/Vol] 101 mg/dL Normal 83 - 110 mg/dL AO ADM SS Glucose [Mass/Vol] 117 mg/dL Invalid Interpretation Code AO Chemistry S Comment on above: Interpretive Data: E stimated average glucose (eAG) is a calculated value from Hemoglobin A1C and is player services representative of the average blood glucose level in the last 2-3 month period. Normal range: less than 114 mg/dL HbA1c (Bld) [Mass fraction] 5.7 % Normal 4.3 - 6.4 % AO ADM SS Potassium [Moles/Vol] 3.4 mmol/L Low 3.5 - 5.1 mmol/L AO ADM SS Protein [Mass/Vol] 6.3 G/dL Low 6.4 - 8.2 G/dL AO ADM SS Sodium [Moles/Vol] 144 mmol/L Normal 136 - 145 mmol/L AO ADM SS Urea nitrogen [Mass/Vol] 13 mg/dL Normal 7 - 18 mg/dL AO ADM SS Urea nitrogen/Creatinine [Mass ratio] 15 ratio Normal 7 - 27 ratio AO ADM SS LABORATORYOrdered By: Anamaria Nicole on 12-15-2023 Cholesterol [Mass/Vol] 157 mg/dL Normal 0 - 200 mg/dL AO ADM SS Comment on above: Interpretive Data: C holesterol Reference Interval: Less than 200 Desirable 200-239 Borderline high risk 240 and above High risk Cholesterol in HDL [Mass/Vol] 66 mg/dL High 40 - 60 mg/dL AO ADM SS Cholesterol in LDL [Mass/Vol] 71 mg/dL Normal 0 - 130 mg/dL AO ADM SS Triglyceride [Mass/Vol] 98 mg/dL Normal 0 - 150 mg/dL AO ADM SS Comment on above: Interpretive Data: T riglyceride Reference Interval: Less than 150 Normal 150-199 Borderline high risk 200-499 High risk 500 or higher Very high risk LIPIDon 12-15-2023 Cholesterol [Mass/Vol] 157 mg/dL Normal 0-200 [facility] Comment on above: Result Comment: Chol esterol Reference Interval: Less than 200 Desirable 200-239 Borderline high risk 240 and above High risk Performed By: #### L IPID, CMP, GFR, A1C, VIDH #### [address] [address] Cholesterol in HDL [Mass/Vol] 66 mg/dL High 40-60 [facility] Comment on above: Performed By: #### L IPID, CMP, GFR, A1C, VIDH #### [address] [address] Cholesterol in LDL [Mass/Vol] 71 mg/dL Normal 0-130 [facility] Comment on above: Performed By: #### L IPID, CMP, GFR, A1C, VIDH #### [address] [address] Triglyceride [Mass/Vol] 98 mg/dL Normal 0-150 [facility] Comment on above: Result Comment: Trig lyceride Reference Interval: Less than 150 Normal 150-199 Borderline high risk 200-499 High risk 500 or higher Very high risk Performed By: #### L IPID, CMP, GFR, A1C, VIDH #### [address] [address] VIDHon 12-15-2023 Vit. D 25-Hydroxy 30.6 ng/mL Normal [facility] Comment on above: Result Comment: Inte rpretive Values Based on Total 25(OH) Vitamin D: Deficient <20 ng/mL Insufficient 20 - <30 ng/mL Sufficient 30-100 ng/mL Performed By: #### L IPID, CMP, GFR, A1C, VIDH #### [address] [address] PT EDon 11-25-2023 PT ED HNO ID: [id number] Author: KIM MONTES, RN Service: Cardiovascular Testing Author Type: Registered Nurse Type: Patient Education Filed: 11/25/2023 14:38 Note Text: 14 Day Extended Wear Patch monitor applied and explained to patient with verbalized understanding. Normal [facility] CNOVon 11-09-2023 CNOV Office Visit (AGCARDPOB) DOMI SNELL ([id number]) 1950 F Date Time Provider Department 11/09/23 11:20 AM DUKE CARRION AGCARDPOB During your visit today, we recorded the following information about you: Pulse Blood pressure Weight 68/minute 95/50 80.3 kg Mindi Ontiveros MA 11/09/2023 1:03 PM Signed P/T states she has feeling of heart pounding/intermit since surgery. WILFRIDO Dorsey Faisal, MD 11/09/2023 1:03 PM Signed PRIMARY CARE PHYSICIAN: Leonor Orellana CNP [address] [place] [address] REFERRING PHYSICIAN: Monica Miller [address] [facility] Indra [address] [facility] [address] Patient Care Team: Leonor Orellana CNP as PCP - General (Family Medicine) Manjinder Toney MD (Cardiology) Mary Stiles APRN.CNP as Referring (Cardiothoracic Surgery) Jan Aparicio MD as Home Care Provider (Cardiothoracic Surgery) Luis Garcia MD (Cardiology) CHIEF COMPLAINT: Paroxysmal atrial fibrillation HISTORY OF PRESENT ILLNESS: Ms. Snell is a 72 year old female with PMH significant for HTN, HLD, carotid artery stenosis s/p right CEA, paroxysmal atrial fibrillation, ERICKA, obesity, CAD s/p PCI to LAD and RCA and s/p CABG x 3 (07/07)/MAZE/RANDOLPH clip who presents today as a referral from cardiac surgery clinic for management of AF. Patient was admitted in June of this year to [facility] after presenting as a transfer from [facility]. She presented to the hospital with worsening chest pain and noted to have troponin elevation, echocardiogram however showed normal EF with no valvular abnormalities. Left heart cath showed a severe left main and multivessel CAD. She was transferred to [facility] for CABG consideration. She underwent CABG x 3 (USAREZ to LAD, SVG to OM and ramus), left-sided maze and LAAC with 35 atricure on 07/12/2023. She was diagnosed with atrial fibrillation back in January 2023 after she reported palpitations and wore a monitor that revealed atrial fibrillation. She was started on Eliquis at the time. She was placed on amiodarone post CABG surgery but has completed the course and now no longer taking it. Patient has a 40-year pack history of smoking, quit briefly in 2017 and then started smoking again in 2022. She has not had a recurrence of atrial fibrillation since January 2023. She has been participating in rehab and doing well but occasionally still reports SOB and fatigue. She occasionally reports intermittent episodes of palpitations, about once or twice a week. These are usually short lasting and not too terribly inconveniencing for her. She denies chest pain, orthopnea, cough, edema, palpitations, PND, lightheadedness or syncope. I have confirmed and edited as necessary, the PFSH and ROS obtained by others. PAST MEDICAL HISTORY Diagnosis Date Asthma Atherosclerotic heart disease of chilkat coronary artery with unspecified angina pectoris (HCC) CAD (coronary artery disease) Carotid bruit left Carotid stenosis, bilateral Depressive disorder Dizziness and giddiness GERD (gastroesophageal reflux disease) HTN (hypertension) Hyperlipidemia Kidney stones ERICKA (obstructive sleep apnea) PAF (paroxysmal atrial fibrillation) (HCC) PONV (postoperative nausea and vomiting) TIA (transient ischemic attack) PAST SURGICAL HISTORY Procedure Laterality Date ARTHROSCOPY, SHOULDER, SURGI 09/11/2018 BREAST BIOPSY CABG (3) VEIN GRAFTS AND ARTERIAL GRAFT(S) 07/12/2023 CABG x 3; (SUAREZ to LAD, SVG to OM and ramus) on 07/12/23 w/ CARDIAC CATH 07/12/2018 [facility] with stenting CHOLECYSTECTOMY HYSTERECTOMY URETEROSCOPY W/ BIOPSY 12/18/2004 SOCIAL HISTORY Social History Tobacco Use Smoking status: Former Current packs/day: 0.00 Types: Cigarettes Quit date: 08/26/2017 Years since quittin.2 Smokeless tobacco: Never Vaping Use Vaping status: Never Used Substance Use Topics Alcohol use: Not Currently Drug use: Never FAMILY HISTORY Problem Relation Age of Onset Diabetes Mother Hypertension Mother Hyperlipidemia Mother Cancer Father Hypertension Father Hyperlipidemia Father Stroke Father Stroke Sister Hypertension Sister ALLERGIES: ALLERGIES Allergen Reactions Doxycycline Unknown Metoprolol Unknown Oxycodone Unknown MEDICATIONS: busPIRone (BUSPAR) 5 mg tablet Take 5 mg by mouth three times a day. mupirocin (BACTROBAN) 2 % ointment APPLY TO AFFECTED AREA 3 TIMES A DAY FOR 5 DAYS traMADol (ULTRAM) 50 mg tablet Take 50 mg by mouth every 8 hours as needed. traZODone (DESYREL) 50 mg tablet Take 50 mg by mouth as needed. saliva substitute combo no.9 (BIOTENE DRY MOUTH ORAL RINSE) mwsh Use 15 mL as instructed two times a day as needed. acetaminophen (TYLENOL) 500 mg tablet Take 2 tablets by mouth every 6 hours as needed for pain. lidocaine (SALONPAS) 4 % (more content not included)... Normal [facility] .Auto Diffon 08-29-2023 Basophil, Absolute 0.0 10 3/mcL Normal 0.0-0.2 [facility] ([place]) Comment on above: Performed By: #### C BC, GFR, ANEU, CMP, ADIFF, TSHR #### [address] [address] Basophils/100 WBC (Bld) 0.5 % Normal 0.0-2.5 [facility] ([place]) Comment on above: Performed By: #### C BC, GFR, ANEU, CMP, ADIFF, TSHR #### [address] [address] Eosinophil, Absolute 0.1 10 3/mcL Normal 0.0-0.4 [facility] ([place]) Comment on above: Performed By: #### C BC, GFR, ANEU, CMP, ADIFF, TSHR #### [address] [address] Eosinophils/100 WBC (Bld) 3.3 % Normal 0.0-7.0 [facility] ([place]) Comment on above: Performed By: #### C BC, GFR, ANEU, CMP, ADIFF, TSHR #### [address] [address] Lymphocyte, Absolute 1.6 10 3/mcL Normal 0.8-3.9 [facility] ([place]) Comment on above: Performed By: #### C BC, GFR, ANEU, CMP, ADIFF, TSHR #### [address] [address] Lymphocytes/100 WBC (Bld) 37.1 % Normal 10.0-50.0 [facility] ([place]) Comment on above: Performed By: #### C BC, GFR, ANEU, CMP, ADIFF, TSHR #### [address] [address] Monocyte, Absolute 0.5 10 3/mcL Normal 0.2-1.0 [facility] ([place]) Comment on above: Performed By: #### C BC, GFR, ANEU, CMP, ADIFF, TSHR #### [address] [address] Monocytes/100 WBC (Bld) 11.0 % Normal 1.7-13.0 [facility] ([place]) Comment on above: Performed By: #### C BC, GFR, ANEU, CMP, ADIFF, TSHR #### [address] [address] Neutrophils/100 WBC (Bld) 48.1 % Normal 37.0-80.0 [facility] ([place]) Comment on above: Performed By: #### C BC, GFR, ANEU, CMP, ADIFF, TSHR #### [address] [address] .GFRon 08-29-2023 GFR 59 ml/min/1.73sqm Normal [facility] ([place]) Comment on above: Result Comment: GFR Population mean for , Non- Americans Ages 20-29 = 116 mL/min/1.73 sq.m. Ages 30-39 = 107 mL/min/1.73 sq.m. Ages 40-49 = 99 mL/min/1.73 sq.m. Ages 50-59 = 93 mL/min/1.73 sq.m. Ages 60-69 = 85 mL/min/1.73 sq.m. Ages 70+ = 75 mL/min/1.73 sq.m. Chronic Kidney Disease: Less than 60 mL/min/1.73 square meters End Stage Renal Disease: Less than 15 mL/min/1.73 square meters Performed By: #### G , BMP #### [address] [address] GFR Non- 48 ml/min/1.73sqm Normal [facility] ([place]) Comment on above: Result Comment: GFR Population mean for , Non- Americans Ages 20-29 = 116 mL/min/1.73 sq.m. Ages 30-39 = 107 mL/min/1.73 sq.m. Ages 40-49 = 99 mL/min/1.73 sq.m. Ages 50-59 = 93 mL/min/1.73 sq.m. Ages 60-69 = 85 mL/min/1.73 sq.m. Ages 70+ = 75 mL/min/1.73 sq.m. Chronic Kidney Disease: Less than 60 mL/min/1.73 square meters End Stage Renal Disease: Less than 15 mL/min/1.73 square meters Performed By: #### G FR, BMP #### [address] [address] .NEUABSon 08-29-2023 Neutrophil, Absolute 2.1 10 3/mcL Low 2.9-6.2 [facility] ([place]) Comment on above: Performed By: #### C BC, GFR, ANEU, CMP, ADIFF, TSHR #### [address] [address] CBCon 08-29-2023 Erythrocyte distribution width (RBC) [Ratio] 15.4 % High 11.5-14.5 [facility] ([place]) Comment on above: Performed By: #### C BC, GFR, ANEU, CMP, ADIFF, TSHR #### [address] [address] Hematocrit (Bld) [Volume fraction] 33.5 % Low 37.0-47.0 [facility] ([place]) Comment on above: Performed By: #### C BC, GFR, ANEU, CMP, ADIFF, TSHR #### [address] [address] Hgb 11.3 G/dL Low 12.0-16.0 [facility] ([place]) Comment on above: Performed By: #### C BC, GFR, ANEU, CMP, ADIFF, TSHR #### [address] [address] MCH (RBC) [Entitic mass] 32.0 pg High 27.0-31.2 [facility] ([place]) Comment on above: Performed By: #### C BC, GFR, ANEU, CMP, ADIFF, TSHR #### [address] [address] MCHC 33.7 G/dL Normal 33.0-37.0 [facility] ([place]) Comment on above: Performed By: #### C BC, GFR, ANEU, CMP, ADIFF, TSHR #### [address] [address] MCV (RBC) [Entitic vol] 95.2 fL High 80.0-94.0 [facility] ([place]) Comment on above: Performed By: #### C BC, GFR, ANEU, CMP, ADIFF, TSHR #### [address] [address] Platelet 233 10 3/mcL Normal 130-400 [facility] ([place]) Comment on above: Performed By: #### C BC, GFR, ANEU, CMP, ADIFF, TSHR #### [address] [address] Platelet mean volume (Bld) [Entitic vol] 7.0 fL Low 7.4-10.4 [facility] ([place]) Comment on above: Performed By: #### C BC, GFR, ANEU, CMP, ADIFF, TSHR #### [address] [address] RBC 3.52 10 6/mcL Low 4.20-5.40 [facility] ([place]) Comment on above: Performed By: #### C BC, GFR, ANEU, CMP, ADIFF, TSHR #### [address] [address] WBC 4.4 10 3/mcL Low 4.6-10.8 [facility] ([place]) Comment on above: Performed By: #### C BC, GFR, ANEU, CMP, ADIFF, TSHR #### [address] [address] CMPon 08-29-2023 Albumin Level 3.3 G/dL Low 3.4-4.8 [facility] ([place]) Comment on above: Performed By: #### C BC, GFR, ANEU, CMP, ADIFF, TSHR #### [address] [address] Albumin/Globulin [Mass ratio] 1.1 {ratio} Normal 1.1-2.5 [facility] ([place]) Comment on above: Performed By: #### C BC, GFR, ANEU, CMP, ADIFF, TSHR #### [address] [address] ALP [Catalytic activity/Vol] 93 U/L Normal 40-135 [facility] ([place]) Comment on above: Performed By: #### C BC, GFR, ANEU, CMP, ADIFF, TSHR #### [address] [address] ALT [Catalytic activity/Vol] 22 U/L Normal 14-59 [facility] ([place]) Comment on above: Performed By: #### C BC, GFR, ANEU, CMP, ADIFF, TSHR #### [address] [address] AST [Catalytic activity/Vol] 22 U/L Normal 10-40 [facility] ([place]) Comment on above: Performed By: #### C BC, GFR, ANEU, CMP, ADIFF, TSHR #### [address] [address] Bili Total 0.8 mg/dL Normal 0.2-1.0 [facility] ([place]) Comment on above: Result Comment: Use of this assay is not recommended for patients undergoing treatment with eltrombopag due to the potential for falsely elevated results. Performed By: #### C BC, GFR, ANEU, CMP, ADIFF, TSHR #### [address] [address] BUN/Creatinine Ratio 10 ratio Normal 7-27 [facility] ([place]) Comment on above: Performed By: #### C BC, GFR, ANEU, CMP, ADIFF, TSHR #### [address] [address] Calcium [Mass/Vol] 9.7 mg/dL Normal 8.4-10.2 [facility] ([place]) Comment on above: Performed By: #### C BC, GFR, ANEU, CMP, ADIFF, TSHR #### [address] [address] Chloride [Moles/Vol] 102 mmol/L Normal 98-107 [facility] ([place]) Comment on above: Performed By: #### C BC, GFR, ANEU, CMP, ADIFF, TSHR #### [address] [address] CO2 [Moles/Vol] 34 mmol/L High 23-31 [facility] ([place]) Comment on above: Performed By: #### C BC, GFR, ANEU, CMP, ADIFF, TSHR #### [address] [address] Creatinine [Mass/Vol] 1.11 mg/dL High 0.55-1.02 [facility] ([place]) Comment on above: Performed By: #### C BC, GFR, ANEU, CMP, ADIFF, TSHR #### [address] [address] Electrolyte Balance 7.0 mEq/L Normal 4.0-15.0 [facility] ([place]) Comment on above: Performed By: #### C BC, GFR, ANEU, CMP, ADIFF, TSHR #### [address] [address] Globulin 3.1 G/dL Normal [facility] ([place]) Comment on above: Performed By: #### C BC, GFR, ANEU, CMP, ADIFF, TSHR #### [address] [address] Glucose [Mass/Vol] 109 mg/dL Normal 83-110 [facility] ([place]) Comment on above: Performed By: #### C BC, GFR, ANEU, CMP, ADIFF, TSHR #### [address] [address] Potassium [Moles/Vol] 3.9 mmol/L Normal 3.5-5.1 [facility] ([place]) Comment on above: Performed By: #### C BC, GFR, ANEU, CMP, ADIFF, TSHR #### [address] [address] Sodium [Moles/Vol] 143 mmol/L Normal 136-145 [facility] ([place]) Comment on above: Performed By: #### C BC, GFR, ANEU, CMP, ADIFF, TSHR #### [address] [address] Total Protein 6.4 G/dL Normal 6.4-8.2 [facility] ([place]) Comment on above: Performed By: #### C BC, GFR, ANEU, CMP, ADIFF, TSHR #### [address] [address] Urea nitrogen [Mass/Vol] 11 mg/dL Normal 7-18 [facility] ([place]) Comment on above: Performed By: #### C BC, GFR, ANEU, CMP, ADIFF, TSHR #### [address] [address] LABORATORYOrdered By: SYSTEM SYSTEM on 08-29-2023 Albumin BCP dye [Mass/Vol] 3.3 G/dL Low 3.4 - 4.8 G/dL AO ADM SS Albumin/Globulin [Mass ratio] 1.1 {ratio} Normal 1.1 - 2.5 ratio AO ADM SS ALP [Catalytic activity/Vol] 93 U/L Normal 40 - 135 U/L AO ADM SS ALT With P-5'-P [Catalytic activity/Vol] 22 U/L Normal 14 - 59 U/L AO ADM SS AST With P-5'-P [Catalytic activity/Vol] 22 U/L Normal 10 - 40 U/L AO ADM SS Basophil, Absolute 0.0 103/mcL Normal 0.0 - 0.2 10^3/mcL AO Workflow SS Basophils/100 WBC (Bld) 0.5 % Normal 0.0 - 2.5 % AO Workflow SS Bilirubin [Mass/Vol] 0.8 mg/dL Normal 0.2 - 1 .0 mg/dL AO ADM SS Comment on above: Interpretive Data: U se of this assay is not recommended for patients undergoing treatment with eltrombopag due to the potential for falsely elevated results. Calcium [Mass/Vol] 9.7 mg/dL Normal 8.4 - 10. 2 mg/dL AO ADM SS Chloride [Moles/Vol] 102 mmol/L Normal 98 - 10 7 mmol/L AO ADM SS CO2 [Moles/Vol] 34 mmol/L High 23 - 31 mmol/L AO ADM SS Creatinine [Mass/Vol] 1.11 mg/dL High 0.55 - 1.02 mg/dL AO ADM SS Electrolyte Balance 7.0 mEq/L Normal 4.0 - 15 .0 mEq/L AO ADM SS Eosinophil, Absolute 0.1 103/mcL Normal 0.0 - 0 .4 10^3/mcL AO Workflow SS Eosinophils/100 WBC (Bld) 3.3 % Normal 0.0 - 7.0 % AO Workflow SS Erythrocyte distribution width (RBC) [Ratio] 15.4 % High 11.5 - 14.5 % AO Workflow SS GFR/1.73 sq M.predicted among blacks MDRD (S/P/Bld) [Vol rate/Area] 59 ml/min/1.73sqm Invalid Interpretation Code AO Chemistry S Comment on above: Interpretive Data: GFR Population mean for , Non- Americans Ages 20-29 = 116 mL/min/1.73 sq.m. Ages 30-39 = 107 mL/min/1.73 sq.m. Ages 40-49 = 99 mL/min/1.73 sq.m. Ages 50-59 = 93 mL/min/1.73 sq.m. Ages 60-69 = 85 mL/min/1.73 sq.m. Ages 70+ = 75 mL/min/1.73 sq.m. Chronic Kidney Disease: Less than 60 mL/min/1.73 square meters End Stage Renal Disease: Less than 15 mL/min/1.73 square meters GFR/1.73 sq M.predicted among non-blacks MDRD (S/P/Bld) [Vol rate/Area] 48 ml/min/1.73sqm Invalid Interpretation Code AO Chemistry S Comment on above: Interpretive Data: GFR Population mean for , Non- Americans Ages 20-29 = 116 mL/min/1.73 sq.m. Ages 30-39 = 107 mL/min/1.73 sq.m. Ages 40-49 = 99 mL/min/1.73 sq.m. Ages 50-59 = 93 mL/min/1.73 sq.m. Ages 60-69 = 85 mL/min/1.73 sq.m. Ages 70+ = 75 mL/min/1.73 sq.m. Chronic Kidney Disease: Less than 60 mL/min/1.73 square meters End Stage Renal Disease: Less than 15 mL/min/1.73 square meters Globulin 3.1 G/dL Invalid Interpretation Code AO ADM SS Glucose [Mass/Vol] 109 mg/dL Normal 83 - 110 mg/dL AO ADM SS Hematocrit (Bld) [Volume fraction] 33.5 % Low 37.0 - 47.0 % AO Workflow SS Hemoglobin (Bld) [Mass/Vol] 11.3 G/dL Low 12.0 - 16.0 G/dL AO Workflow SS Lymphocyte, Absolute 1.6 103/mcL Normal 0.8 - 3 .9 10^3/mcL AO Workflow SS Lymphocytes/100 WBC (Bld) 37.1 % Normal 10.0 - 50.0 % AO Workflow SS MCH (RBC) [Entitic mass] 32.0 pg High 27.0 - 31.2 pg AO Workflow SS MCHC 33.7 G/dL Normal 33.0 - 37.0 G/dL AO Workflow SS MCV (RBC) [Entitic vol] 95.2 fL High 80.0 - 94.0 fL AO Workflow SS Monocyte, Absolute 0.5 103/mcL Normal 0.2 - 1.0 10^3/mcL AO Workflow SS Monocytes/100 WBC (Bld) 11.0 % Normal 1.7 - 13.0 % AO Workflow SS Neutrophil, Absolute 2.1 103/mcL Low 2.9 - 6 .2 10^3/mcL AO Workflow SS Neutrophils/100 WBC (Bld) 48.1 % Normal 37.0 - 80.0 % AO Workflow SS Platelet mean volume (Bld) [Entitic vol] 7.0 fL Low 7.4 - 10.4 fL AO Workflow SS Platelets (Bld) [#/Vol] 233 103/mcL Normal 130 - 400 10^3/mcL AO Workflow SS Potassium [Moles/Vol] 3.9 mmol/L Normal 3.5 - 5.1 mmol/L AO ADM SS Protein [Mass/Vol] 6.4 G/dL Normal 6.4 - 8.2 G/dL AO ADM SS RBC (Bld) [#/Vol] 3.52 106/mcL Low 4.20 - 5.4 0 10^6/mcL AO Workflow SS Sodium [Moles/Vol] 143 mmol/L Normal 136 - 145 mmol/L AO ADM SS TSH Qn 3.20 m[IU]/L Normal 0.36 - 3.74 mcIU/mL AO ADM SS Urea nitrogen [Mass/Vol] 11 mg/dL Normal 7 - 18 mg/dL AO ADM SS Urea nitrogen/Creatinine [Mass ratio] 10 ratio Normal 7 - 27 ratio AO ADM SS WBC (Bld) [#/Vol] 4.4 103/mcL Low 4.6 - 10.8 10^3/mcL AO Workflow SS TSHRon 08-29-2023 TSH Qn 3.20 m[IU]/L Normal 0.36-3.74 [facility] ([place]) Comment on above: Performed By: #### G , VERONICA #### Damien [address] [address] XR Chest PA and Lateralon IMPRESSION: Satisfactory postoperative exam. Cobol Programmer: AAN Transcribe Date/Time: Aug 13 2023 12:16P Dictated by : BERTA SCHROEDER MD This examination was interpreted and the report reviewed and electronically signed by: BERTA SCHROEDER MD on Aug 13 2023 12:17PM EST [email or web address] * * *Final Report* * * DATE OF EXAM: Aug 12 2023 3:12PM [id number] - XR CHEST 2V FRONTAL/LAT / PROCEDURE REASON: S/P CABG (coronary artery bypass graft) * * * * Physician Interpretation * * * * EXAMINATION: CHEST RADIOGRAPH (2 VIEW FRONTAL & LATERAL) CLINICAL HISTORY: S/P CABG (coronary artery bypass graft) MQ: XC2_6 EXAM DATE/TIME: 08/12/2023 3:12 PM COMPARISON: 07/18/2023. RESULT: Lines, tubes, and devices: A neurostimulator is seen in the mid thoracic spinal canal. Lungs and pleura: No consolidation. No lung mass. There is a small residual right pleural effusion. No pneumothorax. Cardiomediastinal silhouette: The patient is status post median sternotomy with a left atrial appendage clip. Bones and soft tissues: Unremarkable. [facility] Provider, [facility] - 08/13/2023 * * *Final Report* * * DATE OF EXAM: Aug 12 2023 3:12PM [id number] - XR CHEST 2V FRONTAL/LAT / PROCEDURE REASON: S/P CABG (coronary artery bypass graft) * * * * Physician Interpretation * * * * EXAMINATION: CHEST RADIOGRAPH (2 VIEW FRONTAL & LATERAL) CLINICAL HISTORY: S/P CABG (coronary artery bypass graft) MQ: XC2_6 EXAM DATE/TIME: 08/12/2023 3:12 PM COMPARISON: 07/18/2023. RESULT: Lines, tubes, and devices: A neurostimulator is seen in the mid thoracic spinal canal. Lungs and pleura: No consolidation. No lung mass. There is a small residual right pleural effusion. No pneumothorax. Cardiomediastinal silhouette: The patient is status post median sternotomy with a left atrial appendage clip. Bones and soft tissues: Unremarkable. IMPRESSION IMPRESSION: Satisfactory postoperative exam. Cobol Programmer: ANA Transcribe Date/Time: Aug 13 2023 12:16P Dictated by : BERTA SCHROEDER MD This examination was interpreted and the report reviewed and electronically signed by: BERTA SCHROEDER MD on Aug 13 2023 12:17PM EST [facility] XR Chest PA and LateralOrder ed By: [facility] Provider on 08-13-2023 [facility] XR Chest PA and Lateralon Radiology Study observation (narrative) [facility] CNPNon 07-26-2023 CNPN Telephone (HCSIND) DOMI SNELL ([id number]) 1950 F Date Time Provider Department 07/26/23 JOHNNY POLO During your visit today, we recorded the following information about you: Johnny Polo RN 07/26/2023 6:51 AM Signed Elvie Aparicio: Your home health patient has been admitted to [facility]. All home health services have been placed on HOLD. The patient will require a resumption of care order upon discharge from the hospital. Thank you. Johnny Polo RN [facility] Allergies As of Date: 07/26/2023 Noted Allergy Reaction DOXYCYCLINE 08/24/2019 16 - Unknown METOPROLOL 08/27/2019 16 - Unknown OXYCODONE 08/24/2019 16 - Unknown Date Reviewed: 07/21/2023 Reviewed by: Karena Bradley LPN - Fully Assessed Reason for Visit: Home Care [4073] Cmt: Patient has been admitted to the hospital. Prescriptions as of 07/26/2023 - prochlorperazine (COMPAZINE) 5 mg tablet Take 1 tablet by mouth every 8 hours as needed. - melatonin 3 mg tablet Take 3 mg by mouth at bedtime as needed for insomnia. - furosemide (LASIX) 40 mg tablet Take 1 tablet by mouth two times a day for 4 days, THEN 1 tablet once daily. - acetaminophen (TYLENOL) 500 mg tablet Take 2 tablets by mouth four times daily. - albuterol HFA (PROVENTIL HFA, VENTOLIN HFA) 90 mcg/actuation inhaler Inhale 2 Puffs as instructed every 6 hours as needed for wheezing/shortness of breath. - amiodarone (PACERONE) 200 mg tablet Take 1 tablet by mouth two times a day for 5 days, THEN 1 tablet once daily. once medication is completed, no longer have to take. - ascorbic acid, vitamin C, (VITAMIN C) 500 mg tablet Take 1 tablet by mouth once daily. - calcium carbonate (TUMS) 500 mg chew Take 2 tablets by mouth two times a day as needed. - clopidogrel (PLAVIX) 75 mg tablet Take 1 tablet by mouth once daily. - ferrous sulfate 325 mg (65 mg iron) tablet Take 1 tablet by mouth once daily. - folic acid 1 mg tablet Take 1 tablet by mouth once daily. - lidocaine (SALONPAS) 4 % patch These are available over the counter. Can cut patch lengthwise and place on either side of incision. Please remove after 12 hours of use, can replace after patch has been off for 12 hours. Patient should start on July 19, 2023. - lidocaine (SALONPAS) 4 % patch Can cut patch lengthwise and place on area of discomfort. Please remove after 12 hours of use, can replace after patch has been off for 12 hours. Patient should start on July 19, 2023. - magnesium oxide (MAG-OX) 400 mg (241.3 mg magnesium) tablet Take 1 tablet by mouth once daily. - metoprolol tartrate, short acting, (LOPRESSOR) 50 mg tablet Take 1 tablet by mouth three times a day. Please hold for SBP < 100 or HR < 60 - polyethylene glycol 3350 17 gram packet Take 1 Packet by mouth once daily for 7 days. Dissolve dose in 4 - 8 ounces of liquid and take as directed. - pantoprazole DR (PROTONIX) 40 mg tablet Take 40 mg by mouth once daily. - apixaban (ELIQUIS) 5 mg tab(s) Take 5 mg by mouth two times a day. - DULoxetine (CYMBALTA) 20 mg capsule Take 20 mg by mouth once daily. Patient reports taking duloxetine HCL DR (Cymbalta) 1 (one) capsule by mouth, daily. - atorvastatin (LIPITOR) 80 mg tablet Take 80 mg by mouth once daily. - potassium chloride (K-TAB) 10 mEq tablet Take 20 mEq by mouth once daily. Meds Comments as of 07/20/2023: 07/20/23: severe interaction between plaxiz and ashley SHI notified Problem List As Of Date 07/26/2023 Noted Resolved NSTEMI (non-ST elevated myocardial infarction) *07/07/2023 07/09/2023 Coronary artery disease involving chilkat will*07/07/2023 Primary hypertension [I10] 07/07/2023 Hyperlipidemia [E78.5] 07/07/2023 Paroxysmal atrial fibrillation (HCC) [I48.0] 07/07/2023 Carotid artery disease (HCC) [I77.9] 07/07/2023 H/O carotid endarterectomy [Z98.890] 07/07/2023 Tobacco abuse [Z72.0] 07/07/2023 Obesity, Class II, BMI 35-39.9 [E66.9] 07/07/2023 Nicotine use disorder, F17.2 [F17.200] 07/10/2023 Respiratory insufficiency [R06.89] 07/12/2023 07/12/2023 Postprocedural hypotension [I95.81] 07/12/2023 07/12/2023 S/P CABG x 3 [Z95.1] 07/12/2023 ERICKA (obstructive sleep apnea) [G47.33] 07/13/2023 Obesity, Class III, BMI >= 40 [E66.01] 07/14/2023 Acute respiratory failure with hypoxia (HCC) [J*07/16/2023 07/18/2023 Acute pulmonary edema (HCC) [J81.0] 07/16/2023 07/18/2023 Tobacco abuse counseling [Z71.6] 07/16/2023 Morbid obesity (HCC) [E66.01] 07/16/2023 Paroxysmal A-fib (HCC) [I48.0] 07/16/2023 Atelectasis [J98.11] 07/18/2023 Encounter Status:Closed by JOHNNY POLO on 07/26/23 [facility] [place] 07-22-2023 [place] Telephone (HCSIND) DOMI SNELL ([id number]) 1950 F Date Time Provider Department 07/22/23 JOHNNY POLO During your visit today, we recorded the following information about you: Johnny Polo, KAYLI 07/22/2023 4:[address] Aparicio, The patient is requesting assist with meals on wheels and assist with obtaining DME, I will be adding a Home Health SW referral to her POC. Thank you in advance for your review of this information. Johnny Polo RN [facility] Allergies As of Date: 07/22/2023 Noted Allergy Reaction DOXYCYCLINE 08/24/2019 16 - Unknown METOPROLOL 08/27/2019 16 - Unknown OXYCODONE 08/24/2019 16 - Unknown Date Reviewed: 07/20/2023 Reviewed by: Angel Jones, KAYLI - Fully Assessed Prescriptions as of 07/22/2023 - prochlorperazine (COMPAZINE) 5 mg tablet Take 1 tablet by mouth every 8 hours as needed. - melatonin 3 mg tablet Take 3 mg by mouth at bedtime as needed for insomnia. - furosemide (LASIX) 40 mg tablet Take 1 tablet by mouth two times a day for 4 days, THEN 1 tablet once daily. - acetaminophen (TYLENOL) 500 mg tablet Take 2 tablets by mouth four times daily. - albuterol HFA (PROVENTIL HFA, VENTOLIN HFA) 90 mcg/actuation inhaler Inhale 2 Puffs as instructed every 6 hours as needed for wheezing/shortness of breath. - amiodarone (PACERONE) 200 mg tablet Take 1 tablet by mouth two times a day for 5 days, THEN 1 tablet once daily. once medication is completed, no longer have to take. - ascorbic acid, vitamin C, (VITAMIN C) 500 mg tablet Take 1 tablet by mouth once daily. - calcium carbonate (TUMS) 500 mg chew Take 2 tablets by mouth two times a day as needed. - clopidogrel (PLAVIX) 75 mg tablet Take 1 tablet by mouth once daily. - ferrous sulfate 325 mg (65 mg iron) tablet Take 1 tablet by mouth once daily. - folic acid 1 mg tablet Take 1 tablet by mouth once daily. - lidocaine (SALONPAS) 4 % patch These are available over the counter. Can cut patch lengthwise and place on either side of incision. Please remove after 12 hours of use, can replace after patch has been off for 12 hours. Patient should start on July 19, 2023. - lidocaine (SALONPAS) 4 % patch Can cut patch lengthwise and place on area of discomfort. Please remove after 12 hours of use, can replace after patch has been off for 12 hours. Patient should start on July 19, 2023. - magnesium oxide (MAG-OX) 400 mg (241.3 mg magnesium) tablet Take 1 tablet by mouth once daily. - metoprolol tartrate, short acting, (LOPRESSOR) 50 mg tablet Take 1 tablet by mouth three times a day. Please hold for SBP < 100 or HR < 60 - polyethylene glycol 3350 17 gram packet Take 1 Packet by mouth once daily for 7 days. Dissolve dose in 4 - 8 ounces of liquid and take as directed. - senna-docusate (SENNA-S) 8.6-50 mg per tablet Take 1 tablet by mouth two times a day for 7 days. - traMADol (ULTRAM) 50 mg tablet Take 1 tablet by mouth every 8 hours as needed for pain for up to 7 days. - pantoprazole DR (PROTONIX) 40 mg tablet Take 40 mg by mouth once daily. - apixaban (ELIQUIS) 5 mg tab(s) Take 5 mg by mouth two times a day. - DULoxetine (CYMBALTA) 20 mg capsule Take 20 mg by mouth once daily. Patient reports taking duloxetine HCL DR (Cymbalta) 1 (one) capsule by mouth, daily. - atorvastatin (LIPITOR) 80 mg tablet Take 80 mg by mouth once daily. - potassium chloride (K-TAB) 10 mEq tablet Take 20 mEq by mouth once daily. Meds Comments as of 07/20/2023: 07/20/23: severe interaction between plaxiz and te- notified Problem List As Of Date 07/22/2023 Noted Resolved NSTEMI (non-ST elevated myocardial infarction) *07/07/2023 07/09/2023 Coronary artery disease involving chilkat will*07/07/2023 Primary hypertension [I10] 07/07/2023 Hyperlipidemia [E78.5] 07/07/2023 Paroxysmal atrial fibrillation (HCC) [I48.0] 07/07/2023 Carotid artery disease (HCC) [I77.9] 07/07/2023 H/O carotid endarterectomy [Z98.890] 07/07/2023 Tobacco abuse [Z72.0] 07/07/2023 Obesity, Class II, BMI 35-39.9 [E66.9] 07/07/2023 Nicotine use disorder, F17.2 [F17.200] 07/10/2023 Respiratory insufficiency [R06.89] 07/12/2023 07/12/2023 Postprocedural hypotension [I95.81] 07/12/2023 07/12/2023 S/P CABG x 3 [Z95.1] 07/12/2023 ERICKA (obstructive sleep apnea) [G47.33] 07/13/2023 Obesity, Class III, BMI >= 40 [E66.01] 07/14/2023 Acute respiratory failure with hypoxia (HCC) [J*07/16/2023 07/18/2023 Acute pulmonary edema (HCC) [J81.0] 07/16/2023 07/18/2023 Tobacco abuse counseling [Z71.6] 07/16/2023 Morbid obesity (HCC) [E66.01] 07/16/2023 Paroxysmal A-fib (HCC) [I48.0] 07/16/2023 Atelectasis [J98.11] 07/18/2023 Encounter Status:[facility] ([id number]) 1950 F Date Time Provider Department 07/22/23 LEONOR ORELLANA During your visit today, we recorded the following information about you: Chanelle Alcaraz 07/22/2023 1:34 PM Signed There has been a delay in service for Home Care OT Evaluation for this patient due to schedule conflict. Patient was notified on 07/22/23. Thank you for this referral, please contact us with any questions. Chanelle R Alcaraz Allergies As of Date: 07/22/2023 Noted Allergy Reaction DOXYCYCLINE 08/24/2019 16 - Unknown METOPROLOL 08/27/2019 16 - Unknown OXYCODONE 08/24/2019 16 - Unknown Date Reviewed: 07/20/2023 Reviewed by: Angel Jones RN - Fully Assessed Reason for Visit: Home Care [4073] Cmt: OT Delay in service call Prescriptions as of 07/22/2023 - prochlorperazine (COMPAZINE) 5 mg tablet Take 1 tablet by mouth every 8 hours as needed. - melatonin 3 mg tablet Take 3 mg by mouth at bedtime as needed for insomnia. - furosemide (LASIX) 40 mg tablet Take 1 tablet by mouth two times a day for 4 days, THEN 1 tablet once daily. - acetaminophen (TYLENOL) 500 mg tablet Take 2 tablets by mouth four times daily. - albuterol HFA (PROVENTIL HFA, VENTOLIN HFA) 90 mcg/actuation inhaler Inhale 2 Puffs as instructed every 6 hours as needed for wheezing/shortness of breath. - amiodarone (PACERONE) 200 mg tablet Take 1 tablet by mouth two times a day for 5 days, THEN 1 tablet once daily. once medication is completed, no longer have to take. - ascorbic acid, vitamin C, (VITAMIN C) 500 mg tablet Take 1 tablet by mouth once daily. - calcium carbonate (TUMS) 500 mg chew Take 2 tablets by mouth two times a day as needed. - clopidogrel (PLAVIX) 75 mg tablet Take 1 tablet by mouth once daily. - ferrous sulfate 325 mg (65 mg iron) tablet Take 1 tablet by mouth once daily. - folic acid 1 mg tablet Take 1 tablet by mouth once daily. - lidocaine (SALONPAS) 4 % patch These are available over the counter. Can cut patch lengthwise and place on either side of incision. Please remove after 12 hours of use, can replace after patch has been off for 12 hours. Patient should start on July 19, 2023. - lidocaine (SALONPAS) 4 % patch Can cut patch lengthwise and place on area of discomfort. Please remove after 12 hours of use, can replace after patch has been off for 12 hours. Patient should start on July 19, 2023. - magnesium oxide (MAG-OX) 400 mg (241.3 mg magnesium) tablet Take 1 tablet by mouth once daily. - metoprolol tartrate, short acting, (LOPRESSOR) 50 mg tablet Take 1 tablet by mouth three times a day. Please hold for SBP < 100 or HR < 60 - polyethylene glycol 3350 17 gram packet Take 1 Packet by mouth once daily for 7 days. Dissolve dose in 4 - 8 ounces of liquid and take as directed. - senna-docusate (SENNA-S) 8.6-50 mg per tablet Take 1 tablet by mouth two times a day for 7 days. - traMADol (ULTRAM) 50 mg tablet Take 1 tablet by mouth every 8 hours as needed for pain for up to 7 days. - pantoprazole DR (PROTONIX) 40 mg tablet Take 40 mg by mouth once daily. - apixaban (ELIQUIS) 5 mg tab(s) Take 5 mg by mouth two times a day. - DULoxetine (CYMBALTA) 20 mg capsule Take 20 mg by mouth once daily. Patient reports taking duloxetine HCL DR (Cymbalta) 1 (one) capsule by mouth, daily. - atorvastatin (LIPITOR) 80 mg tablet Take 80 mg by mouth once daily. - potassium chloride (K-TAB) 10 mEq tablet Take 20 mEq by mouth once daily. Meds Comments as of 07/20/2023: 07/20/23: severe interaction between plaxiz and te- notified Problem List As Of Date 07/22/2023 Noted Resolved NSTEMI (non-ST elevated myocardial infarction) *07/07/2023 07/09/2023 Coronary artery disease involving chilkat will*07/07/2023 Primary hypertension [I10] 07/07/2023 Hyperlipidemia [E78.5] 07/07/2023 Paroxysmal atrial fibrillation (HCC) [I48.0] 07/07/2023 Carotid artery disease (HCC) [I77.9] 07/07/2023 H/O carotid endarterectomy [Z98.890] 07/07/2023 Tobacco abuse [Z72.0] 07/07/2023 Obesity, Class II, BMI 35-39.9 [E66.9] 07/07/2023 Nicotine use disorder, F17.2 [F17.200] 07/10/2023 Respiratory insufficiency [R06.89] 07/12/2023 07/12/2023 Postprocedural hypotension [I95.81] 07/12/2023 07/12/2023 S/P CABG x 3 [Z95.1] 07/12/2023 ERICKA (obstructive sleep apnea) [G47.33] 07/13/2023 Obesity, Class III, BMI >= 40 [E66.01] 07/14/2023 Acute respiratory failure with hypoxia (HCC) [J*07/16/2023 07/18/2023 Acute pulmonary edema (HCC) [J81.0] 07/16/2023 07/18/2023 Tobacco abuse counseling [Z71.6] 07/16/2023 Morbid obesity (HCC) [E66.01] 07/16/2023 Paroxysmal A-fib (HCC) [I48.0] 07/16/2023 Atelectasis [J98.11] 07/18/2023 Encounter Status:Closed by [facility]ANEL[facility]AZ [facility]22[facility] (HCSIND[facility] DOMI SNELL ([id number]) 1950 F Date Time Provider Department 07/20/23 MAVIS BETTENCOURT During your visit today, we recorded the following information about you: Mavis Bettencourt, RN 07/20/2023 12:50 PM Signed Elvie Pt calling stating pt is having nausea. Asking for medications to be sent to pharmacy. Please contact them directly with any instructions or meds that may be able to be called in and assist. Please call [phone], fax to [phone] or inbasket the [facility] Triage pool if you would like home care to enact any orders you may have. Please do not respond to this msg, as I may not be the triage nurse working that day. Thank you Nancy in triage. Bree Easton APRN.[employer] 07/20/2023 4:46 PM Signed Sent Rx for compazine. See my other telephone encounter for details. Allergies As of Date: 07/20/2023 Noted Allergy Reaction DOXYCYCLINE 08/24/2019 16 - Unknown METOPROLOL 08/27/2019 16 - Unknown OXYCODONE 08/24/2019 16 - Unknown Date Reviewed: 07/20/2023 Reviewed by: Angel Jones, KAYLI - Fully Assessed Reason for Visit: Nausea [70] Prescriptions as of 07/20/2023 - prochlorperazine (COMPAZINE) 5 mg tablet Take 1 tablet by mouth every 8 hours as needed. - melatonin 3 mg tablet Take 3 mg by mouth at bedtime as needed for insomnia. - furosemide (LASIX) 40 mg tablet Take 1 tablet by mouth two times a day for 4 days, THEN 1 tablet once daily. - acetaminophen (TYLENOL) 500 mg tablet Take 2 tablets by mouth four times daily. - albuterol HFA (PROVENTIL HFA, VENTOLIN HFA) 90 mcg/actuation inhaler Inhale 2 Puffs as instructed every 6 hours as needed for wheezing/shortness of breath. - amiodarone (PACERONE) 200 mg tablet Take 1 tablet by mouth two times a day for 5 days, THEN 1 tablet once daily. once medication is completed, no longer have to take. - ascorbic acid, vitamin C, (VITAMIN C) 500 mg tablet Take 1 tablet by mouth once daily. - calcium carbonate (TUMS) 500 mg chew Take 2 tablets by mouth two times a day as needed. - clopidogrel (PLAVIX) 75 mg tablet Take 1 tablet by mouth once daily. - ferrous sulfate 325 mg (65 mg iron) tablet Take 1 tablet by mouth once daily. - folic acid 1 mg tablet Take 1 tablet by mouth once daily. - lidocaine (SALONPAS) 4 % patch These are available over the counter. Can cut patch lengthwise and place on either side of incision. Please remove after 12 hours of use, can replace after patch has been off for 12 hours. Patient should start on July 19, 2023. - lidocaine (SALONPAS) 4 % patch Can cut patch lengthwise and place on area of discomfort. Please remove after 12 hours of use, can replace after patch has been off for 12 hours. Patient should start on July 19, 2023. - magnesium oxide (MAG-OX) 400 mg (241.3 mg magnesium) tablet Take 1 tablet by mouth once daily. - metoprolol tartrate, short acting, (LOPRESSOR) 50 mg tablet Take 1 tablet by mouth three times a day. Please hold for SBP < 100 or HR < 60 - polyethylene glycol 3350 17 gram packet Take 1 Packet by mouth once daily for 7 days. Dissolve dose in 4 - 8 ounces of liquid and take as directed. - senna-docusate (SENNA-S) 8.6-50 mg per tablet Take 1 tablet by mouth two times a day for 7 days. - traMADol (ULTRAM) 50 mg tablet Take 1 tablet by mouth every 8 hours as needed for pain for up to 7 days. - pantoprazole DR (PROTONIX) 40 mg tablet Take 40 mg by mouth once daily. - apixaban (ELIQUIS) 5 mg tab(s) Take 5 mg by mouth two times a day. - DULoxetine (CYMBALTA) 20 mg capsule Take 20 mg by mouth once daily. Patient reports taking duloxetine HCL DR (Cymbalta) 1 (one) capsule by mouth, daily. - atorvastatin (LIPITOR) 80 mg tablet Take 80 mg by mouth once daily. - potassium chloride (K-TAB) 10 mEq tablet Take 20 mEq by mouth once daily. Problem List As Of Date 07/20/2023 Noted Resolved NSTEMI (non-ST elevated myocardial infarction) *07/07/2023 07/09/2023 Coronary artery disease involving chilkat will*07/07/2023 Primary hypertension [I10] 07/07/2023 Hyperlipidemia [E78.5] 07/07/2023 Paroxysmal atrial fibrillation (HCC) [I48.0] 07/07/2023 Carotid artery disease (HCC) [I77.9] 07/07/2023 H/O carotid endarterectomy [Z98.890] 07/07/2023 Tobacco abuse [Z72.0] 07/07/2023 Obesity, Class II, BMI 35-39.9 [E66.9] 07/07/2023 Nicotine use disorder, F17.2 [F17.200] 07/10/2023 Respiratory insufficiency [R06.89] 07/12/2023 07/12/2023 Postprocedural hypotension [I95.81] 07/12/2023 07/12/2023 S/P CABG x 3 [Z95.1] 07/12/2023 ERICKA (obstructive sleep apnea) [G47.33] 07/13/2023 Obesity, Class III, BMI >= 40 [E66.01] 07/14/2023 Acute respiratory failure with hypoxia (HCC) [J*07/16/2023 07/18/2023 Acute pulmonary edema (HCC) [J81.0] 07/16/2023 07/18/2023 Tobacco abuse counseling [Z71.6] 07/16/2023 Morbid obesity (HCC) [E66.01] 07/16/2023 Paroxysmal A-fib (HCC) (more content not included)... Normal [facility] CNPN Telephone (HCSIND) DOMI SNELL ([id number]) 1950 F Date Time Provider Department 07/20/23 ANGEL JONES During your visit today, we recorded the following information about you: Angel Jones RN 07/20/2023 2:21 PM Signed Hello- pt asking [facility] if social work consult can be placed to assist with DME needs and meals. Is that OK with you? Thanks! Angel Jones RN [facility] Allergies As of Date: 07/20/2023 Noted Allergy Reaction DOXYCYCLINE 08/24/2019 16 - Unknown METOPROLOL 08/27/2019 16 - Unknown OXYCODONE 08/24/2019 16 - Unknown Date Reviewed: 07/20/2023 Reviewed by: Angel Jones RN - Fully Assessed Reason for Visit: Home Care [4073] Cmt: DEIDRA request Prescriptions as of 07/24/2023 - prochlorperazine (COMPAZINE) 5 mg tablet Take 1 tablet by mouth every 8 hours as needed. - melatonin 3 mg tablet Take 3 mg by mouth at bedtime as needed for insomnia. - furosemide (LASIX) 40 mg tablet Take 1 tablet by mouth two times a day for 4 days, THEN 1 tablet once daily. - acetaminophen (TYLENOL) 500 mg tablet Take 2 tablets by mouth four times daily. - albuterol HFA (PROVENTIL HFA, VENTOLIN HFA) 90 mcg/actuation inhaler Inhale 2 Puffs as instructed every 6 hours as needed for wheezing/shortness of breath. - amiodarone (PACERONE) 200 mg tablet Take 1 tablet by mouth two times a day for 5 days, THEN 1 tablet once daily. once medication is completed, no longer have to take. - ascorbic acid, vitamin C, (VITAMIN C) 500 mg tablet Take 1 tablet by mouth once daily. - calcium carbonate (TUMS) 500 mg chew Take 2 tablets by mouth two times a day as needed. - clopidogrel (PLAVIX) 75 mg tablet Take 1 tablet by mouth once daily. - ferrous sulfate 325 mg (65 mg iron) tablet Take 1 tablet by mouth once daily. - folic acid 1 mg tablet Take 1 tablet by mouth once daily. - lidocaine (SALONPAS) 4 % patch These are available over the counter. Can cut patch lengthwise and place on either side of incision. Please remove after 12 hours of use, can replace after patch has been off for 12 hours. Patient should start on July 19, 2023. - lidocaine (SALONPAS) 4 % patch Can cut patch lengthwise and place on area of discomfort. Please remove after 12 hours of use, can replace after patch has been off for 12 hours. Patient should start on July 19, 2023. - magnesium oxide (MAG-OX) 400 mg (241.3 mg magnesium) tablet Take 1 tablet by mouth once daily. - metoprolol tartrate, short acting, (LOPRESSOR) 50 mg tablet Take 1 tablet by mouth three times a day. Please hold for SBP < 100 or HR < 60 - polyethylene glycol 3350 17 gram packet Take 1 Packet by mouth once daily for 7 days. Dissolve dose in 4 - 8 ounces of liquid and take as directed. - senna-docusate (SENNA-S) 8.6-50 mg per tablet Take 1 tablet by mouth two times a day for 7 days. - traMADol (ULTRAM) 50 mg tablet Take 1 tablet by mouth every 8 hours as needed for pain for up to 7 days. - pantoprazole DR (PROTONIX) 40 mg tablet Take 40 mg by mouth once daily. - apixaban (ELIQUIS) 5 mg tab(s) Take 5 mg by mouth two times a day. - DULoxetine (CYMBALTA) 20 mg capsule Take 20 mg by mouth once daily. Patient reports taking duloxetine HCL DR (Cymbalta) 1 (one) capsule by mouth, daily. - atorvastatin (LIPITOR) 80 mg tablet Take 80 mg by mouth once daily. - potassium chloride (K-TAB) 10 mEq tablet Take 20 mEq by mouth once daily. Meds Comments as of 07/20/2023: 07/20/23: severe interaction between plaxiz and te- notified Problem List As Of Date 07/20/2023 Noted Resolved NSTEMI (non-ST elevated myocardial infarction) *07/07/2023 07/09/2023 Coronary artery disease involving chilkat will*07/07/2023 Primary hypertension [I10] 07/07/2023 Hyperlipidemia [E78.5] 07/07/2023 Paroxysmal atrial fibrillation (HCC) [I48.0] 07/07/2023 Carotid artery disease (HCC) [I77.9] 07/07/2023 H/O carotid endarterectomy [Z98.890] 07/07/2023 Tobacco abuse [Z72.0] 07/07/2023 Obesity, Class II, BMI 35-39.9 [E66.9] 07/07/2023 Nicotine use disorder, F17.2 [F17.200] 07/10/2023 Respiratory insufficiency [R06.89] 07/12/2023 07/12/2023 Postprocedural hypotension [I95.81] 07/12/2023 07/12/2023 S/P CABG x 3 [Z95.1] 07/12/2023 ERICKA (obstructive sleep apnea) [G47.33] 07/13/2023 Obesity, Class III, BMI >= 40 [E66.01] 07/14/2023 Acute respiratory failure with hypoxia (HCC) [J*07/16/2023 07/18/2023 Acute pulmonary edema (HCC) [J81.0] 07/16/2023 07/18/2023 Tobacco abuse counseling [Z71.6] 07/16/2023 Morbid obesity (HCC) [E66.01] 07/16/2023 Paroxysmal A-fib (HCC) [I48.0] 07/16/2023 Atelectasis [J98.11] 07/18/2023 Encounter Status:Closed by ANGEL JONES on 07/24/23 [facility] [place] 07-19-2023 CNPN Telephone (HCSIND) DOMI SNELL ([id number]) 1950 F Date Time Provider Department 07/19/23 ANGEL JONES During your visit today, we recorded the following information about you: Anegl Jones, RN 07/19/2023 4:13 PM Signed Hello! Pt seen for home care nursing start of care today. Pt is experiencing some SOB at rest but pulse ox reading is 95% and above at rest and after ambulation on room air. Lungs clear. Pt is using incentive spirometer regularly. I noted some issues at visit today I would like to bring to your attention: -Pt having frequent intermittent nausea- this was going on in the hospital but was not sent home with antinausea medications. Can this be ordered for her?? -Pt having bilateral shoulder blade pain that is constant and rating it up to 10/10 at times. I feel this could be muscular by her descriptions of the pain. She is not getting any sleep due to this pain. Tramadol not helping. Can she try a muscle relaxer?? -BLE slightly swollen, pitting +1- pt plans to get compression stockings today to try that and I educated about diet and elevation. -Pt is prescribed Plavix and Eliquis. I wanted to be sure this was correct. I educated pt and pt about fall risks and bleeding risks extensively. Thanks for your time, Angel Jones RN [facility] Allergies As of Date: 07/19/2023 Noted Allergy Reaction DOXYCYCLINE 08/24/2019 16 - Unknown METOPROLOL 08/27/2019 16 - Unknown OXYCODONE 08/24/2019 16 - Unknown Date Reviewed: 07/18/2023 Reviewed by: Lily Robles, NELLY - Fully Assessed Reason for Visit: Home Care [4073] Cmt: Antinausea med request, med clarification Prescriptions as of 07/24/2023 - prochlorperazine (COMPAZINE) 5 mg tablet Take 1 tablet by mouth every 8 hours as needed. - melatonin 3 mg tablet Take 3 mg by mouth at bedtime as needed for insomnia. - furosemide (LASIX) 40 mg tablet Take 1 tablet by mouth two times a day for 4 days, THEN 1 tablet once daily. - acetaminophen (TYLENOL) 500 mg tablet Take 2 tablets by mouth four times daily. - albuterol HFA (PROVENTIL HFA, VENTOLIN HFA) 90 mcg/actuation inhaler Inhale 2 Puffs as instructed every 6 hours as needed for wheezing/shortness of breath. - amiodarone (PACERONE) 200 mg tablet Take 1 tablet by mouth two times a day for 5 days, THEN 1 tablet once daily. once medication is completed, no longer have to take. - ascorbic acid, vitamin C, (VITAMIN C) 500 mg tablet Take 1 tablet by mouth once daily. - calcium carbonate (TUMS) 500 mg chew Take 2 tablets by mouth two times a day as needed. - clopidogrel (PLAVIX) 75 mg tablet Take 1 tablet by mouth once daily. - ferrous sulfate 325 mg (65 mg iron) tablet Take 1 tablet by mouth once daily. - folic acid 1 mg tablet Take 1 tablet by mouth once daily. - lidocaine (SALONPAS) 4 % patch These are available over the counter. Can cut patch lengthwise and place on either side of incision. Please remove after 12 hours of use, can replace after patch has been off for 12 hours. Patient should start on July 19, 2023. - lidocaine (SALONPAS) 4 % patch Can cut patch lengthwise and place on area of discomfort. Please remove after 12 hours of use, can replace after patch has been off for 12 hours. Patient should start on July 19, 2023. - magnesium oxide (MAG-OX) 400 mg (241.3 mg magnesium) tablet Take 1 tablet by mouth once daily. - metoprolol tartrate, short acting, (LOPRESSOR) 50 mg tablet Take 1 tablet by mouth three times a day. Please hold for SBP < 100 or HR < 60 - polyethylene glycol 3350 17 gram packet Take 1 Packet by mouth once daily for 7 days. Dissolve dose in 4 - 8 ounces of liquid and take as directed. - senna-docusate (SENNA-S) 8.6-50 mg per tablet Take 1 tablet by mouth two times a day for 7 days. - traMADol (ULTRAM) 50 mg tablet Take 1 tablet by mouth every 8 hours as needed for pain for up to 7 days. - pantoprazole DR (PROTONIX) 40 mg tablet Take 40 mg by mouth once daily. - apixaban (ELIQUIS) 5 mg tab(s) Take 5 mg by mouth two times a day. - DULoxetine (CYMBALTA) 20 mg capsule Take 20 mg by mouth once daily. Patient reports taking duloxetine HCL DR (Cymbalta) 1 (one) capsule by mouth, daily. - atorvastatin (LIPITOR) 80 mg tablet Take 80 mg by mouth once daily. - potassium chloride (K-TAB) 10 mEq tablet Take 20 mEq by mouth once daily. Meds Comments as of 07/20/2023: 07/20/23: severe interaction between plaxiz and ashley SHI notified Problem List As Of Date 07/19/2023 Noted Resolved NSTEMI (non-ST elevated myocardial infarction) *07/07/2023 07/09/2023 Coronary artery disease involving chilkat will*07/07/2023 Primary hypertension [I10] 07/07/2023 Hyperlipidemia [E78.5] 07/07/2023 Paroxysmal atrial fibrillation (HCC) [I48.0] 07/07/2023 Carotid artery disease (HCC) [I77.9] 07/07/2023 H/O carotid endarterectomy [Z98.890] 07/07/2023 (more content not included)... [facility] [place] [facility] ([facility]) ALISDOMI ([id number]) 1950 F Date Time Provider Department 07/18/23 YASMEEN WILLIAM HCSIND During your visit today, we recorded the following information about you: Yasmeen William LPN 07/18/2023 2:08 PM Signed Date/Time: 07/18/2023 2:06 PM Spoke with Domi, patient @ phone #: [phone] - Preferred # for contact: [phone] Have you received help from a home care company in the last 60 days? No. Are you agreeable to [facility] services? Yes. What address will we be seeing you at? [address] [place] [address] Do you have any upcoming appointments or things we need to schedule around? No. Do you have a teachable CG or can you manage your care independently? Jt, spouse. Allergies As of Date: 07/18/2023 Noted Allergy Reaction DOXYCYCLINE 08/24/2019 16 - Unknown METOPROLOL 08/27/2019 16 - Unknown OXYCODONE 08/24/2019 16 - Unknown Date Reviewed: 07/18/2023 Reviewed by: Cary Richardson APRN.PROGRESSIVE ASSEMBLER AND FITTER - Fully Assessed Reason for Visit: Home Care [4073] Cmt: Confirmation call. Prescriptions as of 07/18/2023 - acetaminophen (TYLENOL EXTRA STRENGTH) 500 mg tablet Take 1,000 mg by mouth every 8 hours as needed for pain. - pantoprazole DR (PROTONIX) 40 mg tablet Take 40 mg by mouth once daily. - apixaban (ELIQUIS) 5 mg tab(s) Take 5 mg by mouth two times a day. - carvedilol (COREG) 3.125 mg tablet Take 3.125 mg by mouth two times a day with meals. - DULoxetine (CYMBALTA) 20 mg capsule Take 20 mg by mouth once daily. Patient reports taking duloxetine HCL DR (Cymbalta) 1 (one) capsule by mouth, daily. - furosemide (LASIX) 40 mg tablet Take 40 mg by mouth once daily. - isosorbide mononitrate ER (IMDUR) 60 mg 24 hr tablet Take 60 mg by mouth once daily. - atorvastatin (LIPITOR) 80 mg tablet Take 80 mg by mouth once daily. - nitroglycerin sublingual (NITROQUICK) 0.4 mg SL tablet Dissolve 0.4 mg under the tongue every 5 minutes as needed. - potassium chloride (K-TAB) 10 mEq tablet Take 20 mEq by mouth once daily. Facility-Administered Medications as of 07/18/2023 - amiodarone 200 mg tab(s) (PACERONE) - furosemide 20 mg injection (LASIX) - lidocaine 4 % 1 Patch (SALONPAS) - lidocaine patch - REMOVE - lidocaine - VERIFY PATCH - ipratropium-albuterol 3 mL nebulizer solution (DUONEB) - metoprolol tartrate (short acting) 50 mg tab(s) (LOPRESSOR) - ascorbic acid (vitamin C) 500 mg tab(s) (VITAMIN C) - folic acid 1 mg tab(s) - ferrous sulfate 325 mg tab(s) - clopidogrel 75 mg tab(s) (PLAVIX) - melatonin 3 mg tab(s) - apixaban 5 mg tab(s) (ELIQUIS) - dextrose 15 gram/32 mL 15 g (TRUEPLUS) - glucagon 1 mg injection - dextrose 10% iv bolus - insulin lispro injection (rapid acting) (ADMElog) - insulin lispro injection (rapid acting) (ADMElog) - calcium carbonate 1,000 mg chewable tab(s) (TUMS) - pantoprazole DR 40 mg tab(s) (PROTONIX) - polyethylene glycol 3350 17 g packet - senna-docusate 8.6-50 mg 1 tablet (SENNA-S) - bisacodyl 10 mg suppository (DULCOLAX) - prochlorperazine 10 mg injection (COMPAZINE) - dextrose 10% iv bolus - albuterol 2.5 mg /3 mL (0.083 %) 2.5 mg (PROVENTIL) - ondansetron (PF) 4 mg injection (ZOFRAN) - acetaminophen 1,000 mg tab(s) (TYLENOL) - lidocaine 4 % 1 Patch (SALONPAS) - lidocaine patch - REMOVE - lidocaine - VERIFY PATCH - magnesium oxide 400 mg tab(s) (MAG-OX) - traMADol 50-100 mg tab(s) (ULTRAM) - hydrOXYzine HCl 20 mg tab(s) (ATARAX) - atorvastatin 80 mg tab(s) (LIPITOR) - DULoxetine 20 mg cap(s) (CYMBALTA) - albuterol HFA 90 mcg/actuation 2 Puff (PROVENTIL HFA, VENTOLIN HFA) Problem List As Of Date 07/18/2023 Noted Resolved NSTEMI (non-ST elevated myocardial infarction) *07/07/2023 07/09/2023 Coronary artery disease involving chilkat will*07/07/2023 Primary hypertension [I10] 07/07/2023 Hyperlipidemia [E78.5] 07/07/2023 Paroxysmal atrial fibrillation (HCC) [I48.0] 07/07/2023 Carotid artery disease (HCC) [I77.9] 07/07/2023 H/O carotid endarterectomy [Z98.890] 07/07/2023 Tobacco abuse [Z72.0] 07/07/2023 Obesity, Class II, BMI 35-39.9 [E66.9] 07/07/2023 Nicotine use disorder, F17.2 [F17.200] 07/10/2023 Respiratory insufficiency [R06.89] 07/12/2023 07/12/2023 Postprocedural hypotension [I95.81] 07/12/2023 07/12/2023 S/P CABG x 3 [Z95.1] 07/12/2023 ERICKA (obstructive sleep apnea) [G47.33] 07/13/2023 Obesity, Class III, BMI >= 40 [E66.01] 07/14/2023 Acute respiratory failure with hypoxia (HCC) [J*07/16/2023 Acute pulmonary edema (HCC) [J81.0] 07/16/2023 Tobacco abuse counseling [Z71.6] 07/16/2023 Morbid obesity (HCC) [E66.01] 07/16/2023 Paroxysmal A-fib (HCC) [I48.0] 07/16/2023 Atelectasis [J98.11] 07/18/2023 Encounter Status:Closed by YASMEEN WILLIAM on 07/18/23 Normal [facility] CNCOon 07-08-2023 CNCO Letter Text Normal [facility] Absolute lymphocyte countOrd ered By: Ifeanyi Maldonado on 06-02-2023 Lymphocytes Auto (Unsp spec) [#/Vol] 1.70 10*3/uL 0.83-4.51 [facility] Automated lymphocyte count a s percentage of total leukocytesOrdered By: Ifeanyi Maldonado on 06-02-2023 Lymphocytes/100 WBC Auto (Unsp spec) 35.6 % 19-41 [facility] Basophil percentageOrdered B y: Ifeanyi Maldonado on 06-02-2023 Basophils/100 WBC (Bld) 0.6 % 0-1 [facility] Chloride [Moles/Vol] 108 mmol/L 98-107 [facility] Eosinophils/100 WBC (Bld) 2.1 % 0-5 [facility] Glucose [Mass/Vol] 108 mg/dL 74-106 [facility] Comment on above: Fasting Glucose resu lt from 100 to 125 mg/dL suggests IMPAIRED HOMEOSTASIS per A.D.A. criteria. Hemoglobin (Bld) [Mass/Vol] 13.0 g/dL 12.0-15.0 [facility] Monocytes/100 WBC (Bld) 9.9 % 0-10 [facility] Neutrophils (Bld) [#/Vol] 2.5 10*3/uL 2.0-7.7 [facility] Neutrophils/100 WBC (Bld) 51.4 % 47-70 [facility] Potassium [Moles/Vol] 3.7 mmol/L 3.5-5.1 [facility] Sodium [Moles/Vol] 138 mmol/L 136-145 [facility] WBC (Bld) [#/Vol] 4.8 10*3/uL 4.4-11.0 [facility] Determination of erythrocyte mean corpuscular volume (MCV)Ordered By: Ifeanyi Maldonado on 06-02-2023 MCV (RBC) [Entitic vol] 93.8 fL 81-99 [facility] Erythrocyte distribution wid th ratioOrdered By: Ifeanyi Maldonado on 06-02-2023 Erythrocyte distribution width (RBC) [Ratio] 12.8 % 11.6-14.6 [facility] Erythrocyte distribution wid th standard deviationOrdered By: Ifeanyi Maldonado on 06-02-2023 Erythrocyte distribution width (RBC) [Entitic vol] 43.8 fL 35.1-43.9 [facility] Hematocrit Auto (Bld) [Volum e fraction]Ordered By: Ifeanyi Maldonado on 06-02-2023 Hematocrit (Bld) [Volume fraction] 39.0 % 37-47 [facility] Immature granulocytes/100 WB C Auto (Bld)Ordered By: Ifeanyi Maldonado on 06-02-2023 Immature granulocytes/100 WBC (Bld) 0.400 % 0.0-0.9 [facility] Comment on above: IG% - Immature Granu locytes (promyelocytes, myelocytes and metamyelocytes) > 1% indicates that a LEFT SHIFT is Present. Laboratory - Chemistry and C hemistry - challengeOrdered By: Ifeanyi Maldonado on 06-02-2023 CO2 [Moles/Vol] 27.0 mmol/L 21.0-32.0 [facility] Natriuretic peptide B (Bld) [Mass/Vol] 3.8 pg/mL 0-100 [facility] Urea nitrogen/Creatinine [Mass ratio] 13.9 mg/mg 10-20 [facility] Laboratory - Hematology and Cell countsOrdered By: Ifeanyi Maldonado on 06-02-2023 MCH (RBC) [Entitic mass] 31.3 pg 27.0-32.0 [facility] MCHC (RBC) [Mass/Vol] 33.3 g/dL 32-36 [facility] Nucleated RBC/100 WBC (Bld) [Ratio] 0 % 0-5 [facility] Platelet mean volume (Bld) [Entitic vol] 9.1 fL 6.2-12.0 [facility] Platelets (Bld) [#/Vol] 293 10*3/uL 150-450 [facility] No Panel InformationOrdered By: Ifeanyi Maldonado on 06-02-2023 Estimated GFR (MDRD) Amer 75 mL/min >60 [facility] Comment on above: GFR Calc Estimated GFR (MDRD) Non-Af Amer 62 mL/min >60 [facility] Comment on above: Non- GFR Calc RBC Auto (Bld) [#/Vol]Ordere d By: Ifeanyi Maldonado on 06-02-2023 RBC (Bld) [#/Vol] 4.16 10*6/uL 4.2-5.4 [facility] Serum or plasma calcium martinez urement (mass/volume)Ordered By: Ifeanyi Maldonado on 06-02-2023 Calcium [Mass/Vol] 9.3 mg/dL 8.5-10.1 [facility] Serum or plasma creatinine m easurement (mass/volume)Ordered By: Ifeanyi Maldonado on 06-02-2023 Creatinine [Mass/Vol] 0.94 mg/dL 0.55-1.02 [facility] Comment on above: The validity of the calculated GFR & GFRAA in patients over 70 years has not been determined. Clinical correlation is essential. Serum or plasma thyroid stim ulating hormone (TSH) measurement (units/volume)Ordered By: Ifeanyi Maldonado on 06-02-2023 TSH Qn 1.73 uIU/mL 0.358-3.74 [facility] Serum or plasma urea nitroge n measurement (mass/volume)Ordered By: Ifeanyi Maldonado on 06-02-2023 Urea nitrogen [Mass/Vol] 13 mg/dL 08-31 [facility] Thin prep Papanicolaou smear with manual screeningOrdered By: Ifeanyi Maldonado on 06-02-2023 Thin prep Papanicolaou smear with manual screening 3 5-15 [facility] .GFRon 03-17-2023 GFR 69 ml/min/1.73sqm Normal [facility] ([place]) Comment on above: Result Comment: GFR Population mean for , Non- Americans Ages 20-29 = 116 mL/min/1.73 sq.m. Ages 30-39 = 107 mL/min/1.73 sq.m. Ages 40-49 = 99 mL/min/1.73 sq.m. Ages 50-59 = 93 mL/min/1.73 sq.m. Ages 60-69 = 85 mL/min/1.73 sq.m. Ages 70+ = 75 mL/min/1.73 sq.m. Chronic Kidney Disease: Less than 60 mL/min/1.73 square meters End Stage Renal Disease: Less than 15 mL/min/1.73 square meters Performed By: #### L IPID, CMP, GFR, VIDH #### [address] [address] GFR Non- 57 ml/min/1.73sqm Normal [facility] ([place]) Comment on above: Result Comment: GFR Population mean for , Non- Americans Ages 20-29 = 116 mL/min/1.73 sq.m. Ages 30-39 = 107 mL/min/1.73 sq.m. Ages 40-49 = 99 mL/min/1.73 sq.m. Ages 50-59 = 93 mL/min/1.73 sq.m. Ages 60-69 = 85 mL/min/1.73 sq.m. Ages 70+ = 75 mL/min/1.73 sq.m. Chronic Kidney Disease: Less than 60 mL/min/1.73 square meters End Stage Renal Disease: Less than 15 mL/min/1.73 square meters Performed By: #### L IPID, CMP, GFR, VIDH #### [address] [address] CMPon 03-17-2023 Chloride [Moles/Vol] 105 mmol/L Normal 98-107 [facility] ([place]) Comment on above: Performed By: #### L IPID, CMP, GFR, VIDH #### [address] [address] Electrolyte Balance 11.0 mEq/L Normal 4.0-15.0 [facility] ([place]) Comment on above: Performed By: #### L IPID, CMP, GFR, VIDH #### [address] [address] Potassium [Moles/Vol] 3.8 mmol/L Normal 3.5-5.1 [facility] ([place]) Comment on above: Performed By: #### L IPID, CMP, GFR, VIDH #### [address] [address] Sodium [Moles/Vol] 143 mmol/L Normal 136-145 [facility] ([place]) Comment on above: Performed By: #### L IPID, CMP, GFR, VIDH #### [address] [address] Albumin Level 3.4 G/dL Normal 3.4-4.8 [facility] ([place]) Comment on above: Performed By: #### L IPID, CMP, GFR, VIDH #### [address] [address] Albumin/Globulin [Mass ratio] 1.0 {ratio} Low 1.1-2.5 [facility] ([place]) Comment on above: Performed By: #### L IPID, CMP, GFR, VIDH #### [address] [address] ALP [Catalytic activity/Vol] 107 U/L Normal 40-135 [facility] ([place]) Comment on above: Performed By: #### L IPID, CMP, GFR, VIDH #### [address] [address] ALT [Catalytic activity/Vol] 22 U/L Normal 14-59 [facility] ([place]) Comment on above: Performed By: #### L IPID, CMP, GFR, VIDH #### [address] [address] AST [Catalytic activity/Vol] 14 U/L Normal 10-40 [facility] ([place]) Comment on above: Performed By: #### L IPID, CMP, GFR, VIDH #### [address] [address] Bili Total 0.7 mg/dL Normal 0.2-1.0 [facility] ([place]) Comment on above: Result Comment: Use of this assay is not recommended for patients undergoing treatment with eltrombopag due to the potential for falsely elevated results. Performed By: #### L IPID, CMP, GFR, VIDH #### [address] [address] BUN/Creatinine Ratio 16 ratio Normal 7-27 [facility] ([place]) Comment on above: Performed By: #### L IPID, CMP, GFR, VIDH #### [address] [address] Calcium [Mass/Vol] 9.4 mg/dL Normal 8.4-10.2 [facility] ([place]) Comment on above: Performed By: #### L IPID, CMP, GFR, VIDH #### [address] [address] CO2 [Moles/Vol] 27 mmol/L Normal 23-31 [facility] ([place]) Comment on above: Performed By: #### L IPID, CMP, GFR, VIDH #### [address] [address] Creatinine [Mass/Vol] 0.96 mg/dL Normal 0.55-1.02 [facility] ([place]) Comment on above: Performed By: #### L IPID, CMP, GFR, VIDH #### [address] [address] Globulin 3.5 G/dL Normal [facility] ([place]) Comment on above: Performed By: #### L IPID, CMP, GFR, VIDH #### [address] [address] Glucose [Mass/Vol] 108 mg/dL Normal 83-110 [facility] ([place]) Comment on above: Performed By: #### L IPID, CMP, GFR, VIDH #### [address] [address] Total Protein 6.9 G/dL Normal 6.4-8.2 [facility] ([place]) Comment on above: Performed By: #### L IPID, CMP, GFR, VIDH #### [address] [address] Urea nitrogen [Mass/Vol] 15 mg/dL Normal 7-18 [facility] ([place]) Comment on above: Performed By: #### L IPID, CMP, GFR, VIDH #### [address] [place], [place] [address] LABORATORYOrdered By: SYSTEM SYSTEM on 03-17-2023 25-hydroxyvitamin D3 [Mass/Vol] 48.9 ng/mL Invalid Interpretation Code AO ADM SS Comment on above: Interpretive Data: I nterpretive Values Based on Total 25(OH) Vitamin D: Deficient <20 ng/mL Insufficient 20 - <30 ng/mL Sufficient 30-100 ng/mL Albumin BCP dye [Mass/Vol] 3.4 G/dL Normal 3.4 - 4.8 G/dL AO ADM SS Albumin/Globulin [Mass ratio] 1.0 {ratio} Low 1.1 - 2.5 ratio AO ADM SS ALP [Catalytic activity/Vol] 107 U/L Normal 40 - 135 U/L AO ADM SS ALT With P-5'-P [Catalytic activity/Vol] 22 U/L Normal 14 - 59 U/L AO ADM SS AST With P-5'-P [Catalytic activity/Vol] 14 U/L Normal 10 - 40 U/L AO ADM SS Bilirubin [Mass/Vol] 0.7 mg/dL Normal 0.2 - 1 .0 mg/dL AO ADM SS Comment on above: Interpretive Data: U se of this assay is not recommended for patients undergoing treatment with eltrombopag due to the potential for falsely elevated results. Calcium [Mass/Vol] 9.4 mg/dL Normal 8.4 - 10. 2 mg/dL AO ADM SS Chloride [Moles/Vol] 105 mmol/L Normal 98 - 10 7 mmol/L AO ADM SS CO2 [Moles/Vol] 27 mmol/L Normal 23 - 31 mmol/L AO ADM SS Creatinine [Mass/Vol] 0.96 mg/dL Normal 0.55 - 1.02 mg/dL AO ADM SS Electrolyte Balance 11.0 mEq/L Normal 4.0 - 15 .0 mEq/L AO ADM SS GFR/1.73 sq M.predicted among blacks MDRD (S/P/Bld) [Vol rate/Area] 69 ml/min/1.73sqm Invalid Interpretation Code AO Chemistry S Comment on above: Interpretive Data: GFR Population mean for , Non- Americans Ages 20-29 = 116 mL/min/1.73 sq.m. Ages 30-39 = 107 mL/min/1.73 sq.m. Ages 40-49 = 99 mL/min/1.73 sq.m. Ages 50-59 = 93 mL/min/1.73 sq.m. Ages 60-69 = 85 mL/min/1.73 sq.m. Ages 70+ = 75 mL/min/1.73 sq.m. Chronic Kidney Disease: Less than 60 mL/min/1.73 square meters End Stage Renal Disease: Less than 15 mL/min/1.73 square meters GFR/1.73 sq M.predicted among non-blacks MDRD (S/P/Bld) [Vol rate/Area] 57 ml/min/1.73sqm Invalid Interpretation Code AO Chemistry S Comment on above: Interpretive Data: GFR Population mean for , Non- Americans Ages 20-29 = 116 mL/min/1.73 sq.m. Ages 30-39 = 107 mL/min/1.73 sq.m. Ages 40-49 = 99 mL/min/1.73 sq.m. Ages 50-59 = 93 mL/min/1.73 sq.m. Ages 60-69 = 85 mL/min/1.73 sq.m. Ages 70+ = 75 mL/min/1.73 sq.m. Chronic Kidney Disease: Less than 60 mL/min/1.73 square meters End Stage Renal Disease: Less than 15 mL/min/1.73 square meters Globulin 3.5 G/dL Invalid Interpretation Code AO ADM SS Glucose [Mass/Vol] 108 mg/dL Normal 83 - 110 mg/dL AO ADM SS Potassium [Moles/Vol] 3.8 mmol/L Normal 3.5 - 5.1 mmol/L AO ADM SS Protein [Mass/Vol] 6.9 G/dL Normal 6.4 - 8.2 G/dL AO ADM SS Sodium [Moles/Vol] 143 mmol/L Normal 136 - 145 mmol/L AO ADM SS Urea nitrogen [Mass/Vol] 15 mg/dL Normal 7 - 18 mg/dL AO ADM SS Urea nitrogen/Creatinine [Mass ratio] 16 ratio Normal 7 - 27 ratio AO ADM SS LABORATORYOrdered By: Denton Paredes on 03-17-2023 Cholesterol [Mass/Vol] 188 mg/dL Normal 0 - 200 mg/dL AO ADM SS Comment on above: Interpretive Data: C holesterol Reference Interval: Less than 200 Desirable 200-239 Borderline high risk 240 and above High risk Cholesterol in HDL [Mass/Vol] 67 mg/dL High 40 - 60 mg/dL AO ADM SS Cholesterol in LDL [Mass/Vol] 94 mg/dL Normal 0 - 130 mg/dL AO ADM SS Triglyceride [Mass/Vol] 134 mg/dL Normal 0 - 150 mg/dL AO ADM SS Comment on above: Interpretive Data: T riglyceride Reference Interval: Less than 150 Normal 150-199 Borderline high risk 200-499 High risk 500 or higher Very high risk LIPIDon 03-17-2023 Cholesterol [Mass/Vol] 188 mg/dL Normal 0-200 [facility] ([place]) Comment on above: Result Comment: Chol esterol Reference Interval: Less than 200 Desirable 200-239 Borderline high risk 240 and above High risk Performed By: #### L IPID, CMP, GFR, VIDH #### [address] [address] Cholesterol in HDL [Mass/Vol] 67 mg/dL High 40-60 [facility] ([place]) Comment on above: Performed By: #### L IPID, CMP, GFR, VIDH #### [address] [address] Cholesterol in LDL [Mass/Vol] 94 mg/dL Normal 0-130 [facility] ([place]) Comment on above: Performed By: #### L IPID, CMP, GFR, VIDH #### [address] [address] Triglyceride [Mass/Vol] 134 mg/dL Normal 0-150 [facility] ([place]) Comment on above: Result Comment: Trig lyceride Reference Interval: Less than 150 Normal 150-199 Borderline high risk 200-499 High risk 500 or higher Very high risk Performed By: #### L IPID, CMP, GFR, VIDH #### [address] [address] VIDHon 03-17-2023 Vit. D 25-Hydroxy 48.9 ng/mL Normal [facility] ([place]) Comment on above: Result Comment: Inte rpretive Values Based on Total 25(OH) Vitamin D: Deficient <20 ng/mL Insufficient 20 - <30 ng/mL Sufficient 30-100 ng/mL Performed By: #### L IPID, CMP, GFR, VIDH #### [id number] [place], [place] [address] Basophil percentageOrdered B y: Ifeanyi Maldonado on 01-27-2023 Chloride [Moles/Vol] 110 mmol/L 98-107 [facility] Glucose [Mass/Vol] 131 mg/dL 74-106 [facility] Comment on above: Fasting Glucose resu lt greater than or equal to 126 mg/dL suggests DIABETES MELLITUS per A.D.A. criteria. Potassium [Moles/Vol] 3.8 mmol/L 3.5-5.1 [facility] Sodium [Moles/Vol] 140 mmol/L 136-145 [facility] Laboratory - Chemistry and C hemistry - challengeOrdered By: Ifeanyi Maldonado on 01-27-2023 CO2 [Moles/Vol] 26.0 mmol/L 21.0-32.0 [facility] Urea nitrogen/Creatinine [Mass ratio] 12.9 mg/mg 10-20 [facility] No Panel InformationOrdered By: Ifeanyi Maldonado on 01-27-2023 Estimated GFR (MDRD) Amer 84 mL/min >60 [facility] Comment on above: GFR Calc Estimated GFR (MDRD) Non-Af Amer 69 mL/min >60 [facility] Comment on above: Non- GFR Calc Serum or plasma calcium martinez urement (mass/volume)Ordered By: Ifeanyi Maldonado on 01-27-2023 Calcium [Mass/Vol] 9.3 mg/dL 8.5-10.1 [facility] Serum or plasma creatinine m easurement (mass/volume)Ordered By: Ifeanyi Maldonado on 01-27-2023 Creatinine [Mass/Vol] 0.86 mg/dL 0.55-1.02 [facility] Comment on above: The validity of the calculated GFR & GFRAA in patients over 70 years has not been determined. Clinical correlation is essential. Serum or plasma urea nitroge n measurement (mass/volume)Ordered By: Ifeanyi Maldonado on 01-27-2023 Urea nitrogen [Mass/Vol] 11 mg/dL 7-18 [facility] Thin prep Papanicolaou smear with manual screeningOrdered By: Ifeanyi Maldonado on 01-27-2023 Thin prep Papanicolaou smear with manual screening 4 5-15 [facility] Absolute lymphocyte countOrd ered By: Ifeanyi Maldonado on 12-21-2022 Lymphocytes Auto (Unsp spec) [#/Vol] 1.36 10*3/uL 0.83-4.51 [facility] Basophil percentageOrdered B y: Ifeanyi Maldonado on 12-21-2022 Basophils/100 WBC (Bld) 0.7 % 0-1 [facility] Chloride [Moles/Vol] 109 mmol/L 98-107 [facility] Eosinophils/100 WBC (Bld) 2.8 % 0-5 [facility] Glucose [Mass/Vol] 91 mg/dL 74-106 [facility] Neutrophils (Bld) [#/Vol] 2.2 10*3/uL 2.0-7.7 [facility] Neutrophils/100 WBC (Bld) 52.5 % 47-70 [facility] Potassium [Moles/Vol] 3.4 mmol/L 3.5-5.1 [facility] Sodium [Moles/Vol] 140 mmol/L 136-145 [facility] WBC (Bld) [#/Vol] 4.3 10*3/uL 4.4-11.0 [facility] Blood erythrocytes count (nu mber/volume)Ordered By: Ifeanyi Maldonado on 12-21-2022 RBC (Bld) [#/Vol] 4.25 10*6/uL 4.2-5.4 [facility] Blood hemoglobin measurement (mass/volume)Ordered By: Ifeanyi Maldonado on 12-21-2022 Hemoglobin (Bld) [Mass/Vol] 12.5 g/dL 12.0-15.0 [facility] Blood lymphocytes/100 leukoc ytesOrdered By: Ifeanyi Maldonado on 12-21-2022 Lymphocytes/100 WBC (Bld) 32.0 % 19-41 [facility] Blood monocytes/100 leukocyt esOrdered By: Ifeanyi Maldonado on 12-21-2022 Monocytes/100 WBC (Bld) 11.5 % 0-10 [facility] Blood platelet mean volumeOr dered By: Ifeanyi Maldonado on 12-21-2022 Platelet mean volume (Bld) [Entitic vol] 8.8 fL 6.2-12.0 [facility] Determination of erythrocyte mean corpuscular volume (MCV)Ordered By: Ifeanyi Maldonado on 12-21-2022 MCV (RBC) [Entitic vol] 93.2 fL 81-99 [facility] Hematocrit Auto (Bld) [Volum e fraction]Ordered By: Ifeanyi Maldonado on 12-21-2022 Hematocrit (Bld) [Volume fraction] 39.6 % 37-47 [facility] Laboratory - Chemistry and C hemistry - challengeOrdered By: Ifeanyi Maldonado on 12-21-2022 CO2 [Moles/Vol] 30.0 mmol/L 21.0-32.0 [facility] Natriuretic peptide B (Bld) [Mass/Vol] 32.4 pg/mL 0-100 [facility] Urea nitrogen/Creatinine [Mass ratio] 14.8 mg/mg 10-20 [facility] Laboratory - Hematology and Cell countsOrdered By: Ifeanyi Maldonado on 12-21-2022 Erythrocyte distribution width (RBC) [Entitic vol] 46.2 fL 35.1-43.9 [facility] Erythrocyte distribution width (RBC) [Ratio] 13.6 % 11.6-14.6 [facility] Immature granulocytes/100 WBC (Bld) 0.500 % 0.0-0.9 [facility] Comment on above: IG% - Immature Granu locytes (promyelocytes, myelocytes and metamyelocytes) > 1% indicates that a LEFT SHIFT is Present. MCH (RBC) [Entitic mass] 29.4 pg 27.0-32.0 [facility] Nucleated RBC/100 WBC (Bld) [Ratio] 0 % 0-5 [facility] MCHC Auto (RBC) [Mass/Vol]Or dered By: Ifeanyi Maldonado on 12-21-2022 MCHC (RBC) [Mass/Vol] 31.6 g/dL 32-36 [facility] No Panel InformationOrdered By: Ifeanyi Maldonado on 12-21-2022 Estimated GFR (MDRD) Amer 89 mL/min >60 [facility] Comment on above: GFR Calc Estimated GFR (MDRD) Non-Af Amer 74 mL/min >60 [facility] Comment on above: Non- GFR Calc Platelets bldOrdered By: Erasto Maldonado on 12-21-2022 Platelets (Bld) [#/Vol] 276 10*3/uL 150-450 [facility] Serum or plasma calcium martinez urement (mass/volume)Ordered By: Ifeanyi Maldonado on 12-21-2022 Calcium [Mass/Vol] 9.5 mg/dL 8.5-10.1 [facility] Serum or plasma creatinine m easurement (mass/volume)Ordered By: Ifeanyi Maldonado on 12-21-2022 Creatinine [Mass/Vol] 0.81 mg/dL 0.55-1.02 [facility] Comment on above: The validity of the calculated GFR & GFRAA in patients over 70 years has not been determined. Clinical correlation is essential. Serum or plasma urea nitroge n measurement (mass/volume)Ordered By: Ifeanyi Maldonado on 12-21-2022 Urea nitrogen [Mass/Vol] 12 mg/dL 7-18 [facility] Thin prep Papanicolaou smear with manual screeningOrdered By: Ifeanyi Maldonado on 12-21-2022 Thin prep Papanicolaou smear with manual screening 1 5-15 [facility] .GFRon 11-24-2022 GFR 74 ml/min/1.73sqm Normal [facility] ([place]) Comment on above: Result Comment: GFR Population mean for , Non- Americans Ages 20-29 = 116 mL/min/1.73 sq.m. Ages 30-39 = 107 mL/min/1.73 sq.m. Ages 40-49 = 99 mL/min/1.73 sq.m. Ages 50-59 = 93 mL/min/1.73 sq.m. Ages 60-69 = 85 mL/min/1.73 sq.m. Ages 70+ = 75 mL/min/1.73 sq.m. Chronic Kidney Disease: Less than 60 mL/min/1.73 square meters End Stage Renal Disease: Less than 15 mL/min/1.73 square meters Performed By: #### G , VERONICA #### [place] [address] [address] GFR Non- 61 ml/min/1.73sqm Normal [facility] ([place]) Comment on above: Result Comment: GFR Population mean for , Non- Americans Ages 20-29 = 116 mL/min/1.73 sq.m. Ages 30-39 = 107 mL/min/1.73 sq.m. Ages 40-49 = 99 mL/min/1.73 sq.m. Ages 50-59 = 93 mL/min/1.73 sq.m. Ages 60-69 = 85 mL/min/1.73 sq.m. Ages 70+ = 75 mL/min/1.73 sq.m. Chronic Kidney Disease: Less than 60 mL/min/1.73 square meters End Stage Renal Disease: Less than 15 mL/min/1.73 square meters Performed By: #### G , BMP #### [address] [address] BMPon 11-24-2022 BUN/Creatinine Ratio 20 ratio Normal 7-27 [facility] ([place]) Comment on above: Performed By: #### Jong MITCHELL, BMP #### [address] [address] Calcium [Mass/Vol] 9.8 mg/dL Normal 8.4-10.2 [facility] ([place]) Comment on above: Performed By: #### Jong MITCHELL, BMP #### [address] [address] Chloride [Moles/Vol] 105 mmol/L Normal 98-107 [facility] ([place]) Comment on above: Performed By: #### Jong MITCHELL, BMP #### [address] [address] CO2 [Moles/Vol] 29 mmol/L Normal 23-31 [facility] ([place]) Comment on above: Performed By: #### Jong MITCHELL, BMP #### [address] [address] Creatinine [Mass/Vol] 0.91 mg/dL Normal 0.55-1.02 [facility] ([place]) Comment on above: Performed By: #### G FR, BMP #### [address] [address] Electrolyte Balance 10.0 mEq/L Normal 4.0-15.0 [facility] ([place]) Comment on above: Performed By: #### G , BMP #### [id number] [place], [place] [address] Glucose [Mass/Vol] 111 mg/dL High 83-110 [facility] ([place]) Comment on above: Performed By: #### G , BMP #### [id number] [place], [place] [address] Potassium [Moles/Vol] 3.5 mmol/L Normal 3.5-5.1 [facility] ([place]) Comment on above: Performed By: #### G , BMP #### [id number] [place], [place] [address] Sodium [Moles/Vol] 144 mmol/L Normal 136-145 [facility] ([place]) Comment on above: Performed By: #### Jong MITCHELL, BMP #### [address] [address] Urea nitrogen [Mass/Vol] 18 mg/dL Normal 7-18 [facility] ([place]) Comment on above: Performed By: #### G , BMP #### [address] [address] LABORATORYOrdered By: SYSTEM SYSTEM on 11-24-2022 Calcium [Mass/Vol] 9.8 mg/dL Invalid Interpretation Code 8.4 - 10.2 mg/dL AO ADM SS Chloride [Moles/Vol] 105 mmol/L Invalid Interpretation Code 98 - 107 mmol/L AO ADM SS CO2 [Moles/Vol] 29 mmol/L Invalid Interpretation Code 23 - 31 mmol/L AO ADM SS Creatinine [Mass/Vol] 0.91 mg/dL Invalid Interpretation Code 0.55 - 1.02 mg/dL AO ADM SS Electrolyte Balance 10.0 mEq/L Invalid Interpretation Code 4.0 - 15.0 mEq/L AO ADM SS GFR/1.73 sq M.predicted among blacks MDRD (S/P/Bld) [Vol rate/Area] 74 ml/min/1.73sqm Invalid Interpretation Code AO Chemistry S Comment on above: Interpretive Data: GFR Population mean for , Non- Americans Ages 20-29 = 116 mL/min/1.73 sq.m. Ages 30-39 = 107 mL/min/1.73 sq.m. Ages 40-49 = 99 mL/min/1.73 sq.m. Ages 50-59 = 93 mL/min/1.73 sq.m. Ages 60-69 = 85 mL/min/1.73 sq.m. Ages 70+ = 75 mL/min/1.73 sq.m. Chronic Kidney Disease: Less than 60 mL/min/1.73 square meters End Stage Renal Disease: Less than 15 mL/min/1.73 square meters GFR/1.73 sq M.predicted among non-blacks MDRD (S/P/Bld) [Vol rate/Area] 61 ml/min/1.73sqm Invalid Interpretation Code AO Chemistry S Comment on above: Interpretive Data: GFR Population mean for , Non- Americans Ages 20-29 = 116 mL/min/1.73 sq.m. Ages 30-39 = 107 mL/min/1.73 sq.m. Ages 40-49 = 99 mL/min/1.73 sq.m. Ages 50-59 = 93 mL/min/1.73 sq.m. Ages 60-69 = 85 mL/min/1.73 sq.m. Ages 70+ = 75 mL/min/1.73 sq.m. Chronic Kidney Disease: Less than 60 mL/min/1.73 square meters End Stage Renal Disease: Less than 15 mL/min/1.73 square meters Glucose [Mass/Vol] 111 mg/dL Invalid Interpretation Code 83 - 110 mg/dL AO ADM SS Magnesium [Mass/Vol] 2.1 mg/dL Invalid Interpretation Code 1.8 - 2.4 mg/dL AO ADM SS Potassium [Moles/Vol] 3.5 mmol/L Invalid Interpretation Code 3.5 - 5.1 mmol/L AO ADM SS Sodium [Moles/Vol] 144 mmol/L Invalid Interpretation Code 136 - 145 mmol/L AO ADM SS Urea nitrogen [Mass/Vol] 18 mg/dL Invalid Interpretation Code 7 - 18 mg/dL AO ADM SS Urea nitrogen/Creatinine [Mass ratio] 20 ratio Invalid Interpretation Code 7 - 27 ratio AO ADM SS MGon 11-24-2022 Magnesium [Mass/Vol] 2.1 mg/dL Normal 1.8-2.4 [facility] ([place]) Comment on above: Performed By: #### G FR, BMP #### [address] [address] .GFRon 11-17-2022 GFR 70 ml/min/1.73sqm Normal [facility] ([place]) Comment on above: Result Comment: GFR Population mean for , Non- Americans Ages 20-29 = 116 mL/min/1.73 sq.m. Ages 30-39 = 107 mL/min/1.73 sq.m. Ages 40-49 = 99 mL/min/1.73 sq.m. Ages 50-59 = 93 mL/min/1.73 sq.m. Ages 60-69 = 85 mL/min/1.73 sq.m. Ages 70+ = 75 mL/min/1.73 sq.m. Chronic Kidney Disease: Less than 60 mL/min/1.73 square meters End Stage Renal Disease: Less than 15 mL/min/1.73 square meters Performed By: #### G , BMP #### [address] [address] GFR Non- 58 ml/min/1.73sqm Normal [facility] ([place]) Comment on above: Result Comment: GFR Population mean for , Non- Americans Ages 20-29 = 116 mL/min/1.73 sq.m. Ages 30-39 = 107 mL/min/1.73 sq.m. Ages 40-49 = 99 mL/min/1.73 sq.m. Ages 50-59 = 93 mL/min/1.73 sq.m. Ages 60-69 = 85 mL/min/1.73 sq.m. Ages 70+ = 75 mL/min/1.73 sq.m. Chronic Kidney Disease: Less than 60 mL/min/1.73 square meters End Stage Renal Disease: Less than 15 mL/min/1.73 square meters Performed By: #### G FR, BMP #### [address] [address] BMPon 11-17-2022 BUN/Creatinine Ratio 12 ratio Normal 7-27 [facility] ([place]) Comment on above: Performed By: #### G FR, BMP #### [address] [address] Calcium [Mass/Vol] 9.2 mg/dL Normal 8.4-10.2 [facility] ([place]) Comment on above: Performed By: #### Jong MITCHELL, BMP #### [address] [address] Chloride [Moles/Vol] 106 mmol/L Normal 98-107 [facility] ([place]) Comment on above: Performed By: #### Jong MITCHELL, BMP #### [address] [address] CO2 [Moles/Vol] 30 mmol/L Normal 23-31 [facility] ([place]) Comment on above: Performed By: #### Jong MITCHELL, BMP #### [address] [address] Creatinine [Mass/Vol] 0.95 mg/dL Normal 0.55-1.02 [facility] ([place]) Comment on above: Performed By: #### Jong MITCHELL, BMP #### [address] [address] Electrolyte Balance 10.0 mEq/L Normal 4.0-15.0 [facility] ([place]) Comment on above: Performed By: #### Jong MITCHELL, BMP #### [address] [address] Glucose [Mass/Vol] 174 mg/dL High 83-110 [facility] ([place]) Comment on above: Performed By: #### Jong MITCHELL, BMP #### [address] [address] Potassium [Moles/Vol] 3.3 mmol/L Low 3.5-5.1 [facility] ([place]) Comment on above: Performed By: #### Jong MITCHELL, BMP #### [address] [address] Sodium [Moles/Vol] 146 mmol/L High 136-145 [facility] ([place]) Comment on above: Performed By: #### Jong MITCHELL, BMP #### [address] [address] Urea nitrogen [Mass/Vol] 11 mg/dL Normal 7-18 [facility] ([place]) Comment on above: Performed By: #### Jong MITCHELL, VERONICA #### [place] [address] [place], [place] [address] FT4on 11-17-2022 Free T4 [Mass/Vol] 0.93 ng/dL Normal 0.76-1.46 [facility] ([place]) Comment on above: Performed By: #### Jong MITCHELL, BMP #### [place] [address] [place], [place] [address] TSHon 11-17-2022 TSH Qn 1.47 m[IU]/L Normal 0.36-3.74 [facility] ([place]) Comment on above: Performed By: #### Jong MITCHELL, VERONICA #### [place] [address] [address] LABORATORYOrdered By: SYSTEM SYSTEM on 03-05-2022 Calcium [Mass/Vol] 9.1 mg/dL Invalid Interpretation Code 8.4 - 10.2 mg/dL AO ADM SS Chloride [Moles/Vol] 102 mmol/L Invalid Interpretation Code 98 - 107 mmol/L AO ADM SS CO2 [Moles/Vol] 28 mmol/L Invalid Interpretation Code 23 - 31 mmol/L AO ADM SS Creatinine [Mass/Vol] 0.86 mg/dL Invalid Interpretation Code 0.55 - 1.02 mg/dL AO ADM SS Electrolyte Balance 9.0 mEq/L Invalid Interpretation Code 4.0 - 15.0 mEq/L AO ADM SS GFR 79 ml/min/1.73sqm Invalid Interpretation Code AO Chemistry S GFR Non- 65 ml/min/1.73sqm Invalid Interpretation Code AO Chemistry S Glucose [Mass/Vol] 99 mg/dL Invalid Interpretation Code 83 - 110 mg/dL AO ADM SS Potassium [Moles/Vol] 3.7 mmol/L Invalid Interpretation Code 3.5 - 5.1 mmol/L AO ADM SS Sodium [Moles/Vol] 139 mmol/L Invalid Interpretation Code 136 - 145 mmol/L AO ADM SS Urea nitrogen [Mass/Vol] 11 mg/dL Invalid Interpretation Code 7 - 18 mg/dL AO ADM SS Urea nitrogen/Creatinine [Mass ratio] 13 ratio Invalid Interpretation Code 7 - 27 ratio AO ADM SS LABORATORYOrdered By: Yamilet Durán on 02-23-2022 ESR 15 minute reading (Bld) [Velocity] 30 mm/hr Invalid Interpretation Code 0 - 30 mm/hr AO Man Heme SS LABORATORYOrdered By: SYSTEM SYSTEM on 02-23-2022 Thyroglobulin Ab IA Qn 18 unit/mL Invalid Interpretation Code 15 - 60 unit/mL AH ADM SS TPO Ab IA Qn unit/mL Invalid Interpretation Code 0 - 60 unit/mL AH ADM SS LABORATORYOrdered By: SYSTEM SYSTEM on 02-16-2022 Albumin BCP dye [Mass/Vol] 3.7 G/dL Invalid Interpretation Code 3.4 - 4.8 G/dL AO ADM SS Albumin/Globulin [Mass ratio] 1.1 {ratio} Invalid Interpretation Code 1.1 - 2.5 ratio AO ADM SS ALP [Catalytic activity/Vol] 99 U/L Invalid Interpretation Code 40 - 135 U/L AO ADM SS ALT With P-5'-P [Catalytic activity/Vol] 25 U/L Invalid Interpretation Code 14 - 59 U/L AO ADM SS AST With P-5'-P [Catalytic activity/Vol] 22 U/L Invalid Interpretation Code 10 - 40 U/L AO ADM SS Bilirubin [Mass/Vol] 0.8 mg/dL Invalid Interpretation Code 0.2 - 1.0 mg/dL AO ADM SS Calcium [Mass/Vol] 9.5 mg/dL Invalid Interpretation Code 8.4 - 10.2 mg/dL AO ADM SS Chloride [Moles/Vol] 101 mmol/L Invalid Interpretation Code 98 - 107 mmol/L AO ADM SS CO2 [Moles/Vol] 26 mmol/L Invalid Interpretation Code 23 - 31 mmol/L AO ADM SS Creatinine [Mass/Vol] 1.03 mg/dL Invalid Interpretation Code 0.55 - 1.02 mg/dL AO ADM SS Electrolyte Balance 12.0 mEq/L Invalid Interpretation Code 4.0 - 15.0 mEq/L AO ADM SS Free T4 [Mass/Vol] 1.03 ng/dL Invalid Interpretation Code 0.76 - 1.46 ng/dL AO ADM SS GFR 64 ml/min/1.73sqm Invalid Interpretation Code AO Chemistry S GFR Non- 53 ml/min/1.73sqm Invalid Interpretation Code AO Chemistry S Globulin 3.4 G/dL Invalid Interpretation Code AO ADM SS Glucose [Mass/Vol] 126 mg/dL Invalid Interpretation Code 83 - 110 mg/dL AO ADM SS Natriuretic peptide.B prohormone N-Terminal [Mass/Vol] 42 pg/mL Invalid Interpretation Code 0 - 125 pg/mL AO ADM SS Potassium [Moles/Vol] 3.4 mmol/L Invalid Interpretation Code 3.5 - 5.1 mmol/L AO ADM SS Protein [Mass/Vol] 7.1 G/dL Invalid Interpretation Code 6.4 - 8.2 G/dL AO ADM SS Sodium [Moles/Vol] 139 mmol/L Invalid Interpretation Code 136 - 145 mmol/L AO ADM SS TSH Qn 1.49 m[IU]/L Invalid Interpretation Code 0.36 - 3.74 mcIU/mL AO ADM SS Urea nitrogen [Mass/Vol] 14 mg/dL Invalid Interpretation Code 7 - 18 mg/dL AO ADM SS Urea nitrogen/Creatinine [Mass ratio] 14 ratio Invalid Interpretation Code 7 - 27 ratio AO ADM SS LABORATORYOrdered By: Lauren Banda on 02-16-2022 Basophil, Absolute 0.0 103/mcL Invalid Interpretation Code 0.0 - 0.2 10^3/mcL AO Workflow SS Basophils/100 WBC (Bld) 0.4 % Invalid Interpretation Code 0.0 - 2.5 % AO Workflow SS Eosinophil, Absolute 0.1 103/mcL Invalid Interpretation Code 0.0 - 0.4 10^3/mcL AO Workflow SS Eosinophils/100 WBC (Bld) 1.7 % Invalid Interpretation Code 0.0 - 7.0 % AO Workflow SS Erythrocyte distribution width (RBC) [Ratio] 14.4 % Invalid Interpretation Code 11.5 - 14.5 % AO Workflow SS Hematocrit (Bld) [Volume fraction] 36.2 % Invalid Interpretation Code 37.0 - 47.0 % AO Workflow SS Hemoglobin (Bld) [Mass/Vol] 12.1 G/dL Invalid Interpretation Code 12.0 - 16.0 G/dL AO Workflow SS Lymphocyte, Absolute 1.7 103/mcL Invalid Interpretation Code 0.8 - 3.9 10^3/mcL AO Workflow SS Lymphocytes/100 WBC (Bld) 34.1 % Invalid Interpretation Code 10.0 - 50.0 % AO Workflow SS MCH (RBC) [Entitic mass] 29.0 pg Invalid Interpretation Code 27.0 - 31.2 pg AO Workflow SS MCHC 33.3 G/dL Invalid Interpretation Code 33.0 - 37.0 G/dL AO Workflow SS MCV (RBC) [Entitic vol] 87.2 fL Invalid Interpretation Code 80.0 - 94.0 fL AO Workflow SS Monocyte, Absolute 0.4 103/mcL Invalid Interpretation Code 0.2 - 1.0 10^3/mcL AO Workflow SS Monocytes/100 WBC (Bld) 7.8 % Invalid Interpretation Code 1.7 - 13.0 % AO Workflow SS Neutrophil, Absolute 2.8 103/mcL Invalid Interpretation Code 2.9 - 6.2 10^3/mcL AO Workflow SS Neutrophils/100 WBC (Bld) 56.0 % Invalid Interpretation Code 37.0 - 80.0 % AO Workflow SS Platelet mean volume (Bld) [Entitic vol] 7.0 fL Invalid Interpretation Code 7.4 - 10.4 fL AO Workflow SS Platelets (Bld) [#/Vol] 315 103/mcL Invalid Interpretation Code 130 - 400 10^3/mcL AO Workflow SS RBC (Bld) [#/Vol] 4.16 106/mcL Invalid Interpretation Code 4.20 - 5.40 10^6/mcL AO Workflow SS WBC (Bld) [#/Vol] 5.1 103/mcL Invalid Interpretation Code 4.6 - 10.8 10^3/mcL AO Workflow SS LABORATORYOrdered By: Haylee Tyson on 10-20-2021 Natriuretic peptide.B prohormone N-Terminal [Mass/Vol] 116 pg/mL Invalid Interpretation Code 0 - 125 pg/mL AO ADM SS Albumin BCP dye [Mass/Vol] 3.6 G/dL Invalid Interpretation Code 3.4 - 4.8 G/dL AO ADM SS Albumin/Globulin [Mass ratio] 1.1 {ratio} Invalid Interpretation Code 1.1 - 2.5 ratio AO ADM SS ALP [Catalytic activity/Vol] 112 U/L Invalid Interpretation Code 40 - 135 U/L AO ADM SS ALT With P-5'-P [Catalytic activity/Vol] 25 U/L Invalid Interpretation Code 14 - 59 U/L AO ADM SS AST With P-5'-P [Catalytic activity/Vol] 16 U/L Invalid Interpretation Code 10 - 40 U/L AO ADM SS Bilirubin [Mass/Vol] 0.6 mg/dL Invalid Interpretation Code 0.2 - 1.0 mg/dL AO ADM SS Calcium [Mass/Vol] 9.1 mg/dL Invalid Interpretation Code 8.4 - 10.2 mg/dL AO ADM SS Chloride [Moles/Vol] 105 mmol/L Invalid Interpretation Code 98 - 107 mmol/L AO ADM SS Cholesterol [Mass/Vol] 184 mg/dL Invalid Interpretation Code 0 - 200 mg/dL AO ADM SS Cholesterol in HDL [Mass/Vol] 95 mg/dL Invalid Interpretation Code 40 - 60 mg/dL AO ADM SS Cholesterol in LDL [Mass/Vol] 74 mg/dL Invalid Interpretation Code 0 - 130 mg/dL AO ADM SS CO2 [Moles/Vol] 28 mmol/L Invalid Interpretation Code 23 - 31 mmol/L AO ADM SS Creatinine [Mass/Vol] 0.98 mg/dL Invalid Interpretation Code 0.55 - 1.02 mg/dL AO ADM SS Electrolyte Balance 9.0 mEq/L Invalid Interpretation Code 4.0 - 15.0 mEq/L AO ADM SS Globulin 3.2 G/dL Invalid Interpretation Code AO ADM SS Glucose [Mass/Vol] 98 mg/dL Invalid Interpretation Code 83 - 110 mg/dL AO ADM SS Potassium [Moles/Vol] 3.9 mmol/L Invalid Interpretation Code 3.5 - 5.1 mmol/L AO ADM SS Protein [Mass/Vol] 6.8 G/dL Invalid Interpretation Code 6.4 - 8.2 G/dL AO ADM SS Sodium [Moles/Vol] 142 mmol/L Invalid Interpretation Code 136 - 145 mmol/L AO ADM SS Triglyceride [Mass/Vol] 74 mg/dL Invalid Interpretation Code 0 - 150 mg/dL AO ADM SS Urea nitrogen [Mass/Vol] 17 mg/dL Invalid Interpretation Code 7 - 18 mg/dL AO ADM SS Urea nitrogen/Creatinine [Mass ratio] 17 ratio Invalid Interpretation Code 7 - 27 ratio AO ADM SS LABORATORYOrdered By: SYSTEM SYSTEM on 10-20-2021 GFR 68 ml/min/1.73sqm Invalid Interpretation Code AO Chemistry S GFR Non- 56 ml/min/1.73sqm Invalid Interpretation Code AO Chemistry S LABORATORYOrdered By: Buffy Lucia on 09-24-2021 Basophil, Absolute 0.0 103/mcL Invalid Interpretation Code 0.0 - 0.2 10^3/mcL AO Workflow SS Basophils/100 WBC (Bld) 0.3 % Invalid Interpretation Code 0.0 - 2.5 % AO Workflow SS Eosinophil, Absolute 0.1 103/mcL Invalid Interpretation Code 0.0 - 0.4 10^3/mcL AO Workflow SS Eosinophils/100 WBC (Bld) 0.8 % Invalid Interpretation Code 0.0 - 7.0 % AO Workflow SS Erythrocyte distribution width (RBC) [Ratio] 16.0 % Invalid Interpretation Code 11.5 - 14.5 % AO Workflow SS Hematocrit (Bld) [Volume fraction] 36.5 % Invalid Interpretation Code 37.0 - 47.0 % AO Workflow SS Hemoglobin (Bld) [Mass/Vol] 12.3 G/dL Invalid Interpretation Code 12.0 - 16.0 G/dL AO Workflow SS Lymphocyte, Absolute 1.7 103/mcL Invalid Interpretation Code 0.8 - 3.9 10^3/mcL AO Workflow SS Lymphocytes/100 WBC (Bld) 24.5 % Invalid Interpretation Code 10.0 - 50.0 % AO Workflow SS MCH (RBC) [Entitic mass] 29.9 pg Invalid Interpretation Code 27.0 - 31.2 pg AO Workflow SS MCHC 33.8 G/dL Invalid Interpretation Code 33.0 - 37.0 G/dL AO Workflow SS MCV (RBC) [Entitic vol] 88.5 fL Invalid Interpretation Code 80.0 - 94.0 fL AO Workflow SS Monocyte, Absolute 0.6 103/mcL Invalid Interpretation Code 0.2 - 1.0 10^3/mcL AO Workflow SS Monocytes/100 WBC (Bld) 8.4 % Invalid Interpretation Code 1.7 - 13.0 % AO Workflow SS Neutrophil, Absolute 4.5 103/mcL Invalid Interpretation Code 2.9 - 6.2 10^3/mcL AO Workflow SS Neutrophils/100 WBC (Bld) 66.0 % Invalid Interpretation Code 37.0 - 80.0 % AO Workflow SS Platelet mean volume (Bld) [Entitic vol] 7.1 fL Invalid Interpretation Code 7.4 - 10.4 fL AO Workflow SS Platelets (Bld) [#/Vol] 233 103/mcL Invalid Interpretation Code 130 - 400 10^3/mcL AO Workflow SS RBC (Bld) [#/Vol] 4.12 106/mcL Invalid Interpretation Code 4.20 - 5.40 10^6/mcL AO Workflow SS WBC 6.9 103/mcL Invalid Interpretation Code 4.6 - 10.8 10^3/mcL AO Workflow SS LABORATORYOrdered By: Lauren Banda on 09-24-2021 INR Coag (PPP) [Relative time] 0.9 {INR} Invalid Interpretation Code 0.9 - 1.2 ratio AO Coag SS PT Coag (PPP) [Time] 10.1 s Invalid Interpretation Code 9.7 - 14.3 seconds AO Coag SS LABORATORYOrdered By: SYSTEM SYSTEM on 09-24-2021 Monocyte distribution width Auto (Bld) [Entitic vol] Not Performed 1 *NA* (09/24/21 11:26 AM) Invalid Interpretation Code 0.00 - 20.00 AO Hematology S Comment on above: Result Comment: MDW testing performed only on adult ER patients between the ages of 18-89 years. LABORATORYOrdered By: Lauren Banda on 06-23-2021 aPTT Coag (Bld) [Time] 24.3 s Invalid Interpretation Code 24.8 - 33.3 seconds AO Coag SS Basophil, Absolute 0.00 103/mcL Invalid Interpretation Code 0.00 - 0.19 10^3/mcL AO Auto Heme SS Basophils/100 WBC (Bld) 0.6 % Invalid Interpretation Code 0.0 - 2.5 % AO Auto Heme SS Eosinophil, Absolute 0.10 103/mcL Invalid Interpretation Code 0.00 - 0.40 10^3/mcL AO Auto Heme SS Eosinophils/100 WBC (Bld) 1.3 % Invalid Interpretation Code 0.0 - 7.0 % AO Auto Heme SS Erythrocyte distribution width (RBC) [Ratio] 15.0 % Invalid Interpretation Code 11.5 - 14.5 % AO Auto Heme SS Hematocrit (Bld) [Volume fraction] 35.2 % Invalid Interpretation Code 37.0 - 47.0 % AO Auto Heme SS Hemoglobin (Bld) [Mass/Vol] 11.9 G/dL Invalid Interpretation Code 12.0 - 16.0 G/dL AO Auto Heme SS Lymphocyte, Absolute 1.30 103/mcL Invalid Interpretation Code 0.77 - 3.85 10^3/mcL AO Auto Heme SS Lymphocytes/100 WBC (Bld) 31.0 % Invalid Interpretation Code 10.0 - 50.0 % AO Auto Heme SS MCH (RBC) [Entitic mass] 29.9 pg Invalid Interpretation Code 27.0 - 31.2 pg AO Auto Heme SS MCHC (RBC) [Mass/Vol] 33.8 G/dL Invalid Interpretation Code 33.0 - 37.0 G/dL AO Auto Heme SS MCV (RBC) [Entitic vol] 88.4 fL Invalid Interpretation Code 80.0 - 94.0 fL AO Auto Heme SS Monocyte, Absolute 0.40 103/mcL Invalid Interpretation Code 0.15 - 1.00 10^3/mcL AO Auto Heme SS Monocytes/100 WBC (Bld) 9.5 % Invalid Interpretation Code 1.7 - 13.0 % AO Auto Heme SS Neutrophil, Absolute 2.40 103/mcL Invalid Interpretation Code 2.85 - 6.16 10^3/mcL AO Auto Heme SS Neutrophils/100 WBC (Bld) 57.6 % Invalid Interpretation Code 37.0 - 80.0 % AO Auto Heme SS Platelet mean volume (Bld) [Entitic vol] 7.1 fL Invalid Interpretation Code 7.4 - 10.4 fL AO Auto Heme SS Platelets (Bld) [#/Vol] 273 103/mcL Invalid Interpretation Code 130 - 400 10^3/mcL AO Auto Heme SS RBC (Bld) [#/Vol] 3.98 106/mcL Invalid Interpretation Code 4.20 - 5.40 10^6/mcL AO Auto Heme SS WBC (Bld) [#/Vol] 4.10 103/mcL Invalid Interpretation Code 4.60 - 10.80 10^3/mcL AO Auto Heme SS LABORATORYOrdered By: Stephen Call on 06-23-2021 Calcium [Mass/Vol] 8.7 mg/dL Invalid Interpretation Code 8.4 - 10.2 mg/dL AO ADM SS Chloride [Moles/Vol] 104 mmol/L Invalid Interpretation Code 98 - 107 mmol/L AO ADM SS CO2 [Moles/Vol] 28 mmol/L Invalid Interpretation Code 23 - 31 mmol/L AO ADM SS Creatinine [Mass/Vol] 0.82 mg/dL Invalid Interpretation Code 0.55 - 1.02 mg/dL AO ADM SS Electrolyte Balance 9.0 mEq/L Invalid Interpretation Code 4.0 - 15.0 mEq/L AO ADM SS Glucose [Mass/Vol] 90 mg/dL Invalid Interpretation Code 83 - 110 mg/dL AO ADM SS Heparin dose (APTT) Unknown (06/23/21 11:30 AM) Invalid Interpretation Code AO Coag SS INR Coag (PPP) [Relative time] 0.9 {INR} Invalid Interpretation Code 0.9 - 1.2 ratio AO Coag SS Potassium [Moles/Vol] 3.8 mmol/L Invalid Interpretation Code 3.5 - 5.1 mmol/L AO ADM SS PT Coag (PPP) [Time] 10.0 s Invalid Interpretation Code 9.7 - 14.3 seconds AO Coag SS Sodium [Moles/Vol] 141 mmol/L Invalid Interpretation Code 136 - 145 mmol/L AO ADM SS Urea nitrogen [Mass/Vol] 14 mg/dL Invalid Interpretation Code 7 - 18 mg/dL AO ADM SS Urea nitrogen/Creatinine [Mass ratio] 17 ratio Invalid Interpretation Code 7 - 27 ratio AO ADM SS LABORATORYOrdered By: SYSTEM SYSTEM on 06-23-2021 GFR 84 ml/min/1.73sqm Invalid Interpretation Code AO Chemistry S GFR Non- 69 ml/min/1.73sqm Invalid Interpretation Code AO Chemistry S LABORATORYOrdered By: Yamilet Durán on 05-18-2021 aPTT Coag (Bld) [Time] 26.0 s Invalid Interpretation Code 24.8 - 33.3 seconds AO Coag SS Basophil, Absolute 0.00 103/mcL Invalid Interpretation Code 0.00 - 0.19 10^3/mcL AO Auto Heme SS Basophils/100 WBC (Bld) 0.6 % Invalid Interpretation Code 0.0 - 2.5 % AO Auto Heme SS Eosinophil, Absolute 0.10 103/mcL Invalid Interpretation Code 0.00 - 0.40 10^3/mcL AO Auto Heme SS Eosinophils/100 WBC (Bld) 1.3 % Invalid Interpretation Code 0.0 - 7.0 % AO Auto Heme SS Erythrocyte distribution width (RBC) [Ratio] 15.1 % Invalid Interpretation Code 11.5 - 14.5 % AO Auto Heme SS Hematocrit (Bld) [Volume fraction] 38.5 % Invalid Interpretation Code 37.0 - 47.0 % AO Auto Heme SS Hemoglobin (Bld) [Mass/Vol] 12.6 G/dL Invalid Interpretation Code 12.0 - 16.0 G/dL AO Auto Heme SS Heparin dose (APTT) Unknown (05/18/21 11:57 AM) Invalid Interpretation Code AO Coag SS INR Coag (PPP) [Relative time] 0.9 {INR} Invalid Interpretation Code 0.9 - 1.2 ratio AO Coag SS Lymphocyte, Absolute 1.40 103/mcL Invalid Interpretation Code 0.77 - 3.85 10^3/mcL AO Auto Heme SS Lymphocytes/100 WBC (Bld) 33.1 % Invalid Interpretation Code 10.0 - 50.0 % AO Auto Heme SS MCH (RBC) [Entitic mass] 29.2 pg Invalid Interpretation Code 27.0 - 31.2 pg AO Auto Heme SS MCHC (RBC) [Mass/Vol] 32.7 G/dL Invalid Interpretation Code 33.0 - 37.0 G/dL AO Auto Heme SS MCV (RBC) [Entitic vol] 89.2 fL Invalid Interpretation Code 80.0 - 94.0 fL AO Auto Heme SS Monocyte, Absolute 0.40 103/mcL Invalid Interpretation Code 0.15 - 1.00 10^3/mcL AO Auto Heme SS Monocytes/100 WBC (Bld) 9.8 % Invalid Interpretation Code 1.7 - 13.0 % AO Auto Heme SS Neutrophil, Absolute 2.30 103/mcL Invalid Interpretation Code 2.85 - 6.16 10^3/mcL AO Auto Heme SS Neutrophils/100 WBC (Bld) 55.2 % Invalid Interpretation Code 37.0 - 80.0 % AO Auto Heme SS Platelet mean volume (Bld) [Entitic vol] 6.9 fL Invalid Interpretation Code 7.4 - 10.4 fL AO Auto Heme SS Platelets (Bld) [#/Vol] 268 103/mcL Invalid Interpretation Code 130 - 400 10^3/mcL AO Auto Heme SS PT Coag (PPP) [Time] 9.8 s Invalid Interpretation Code 9.7 - 14.3 seconds AO Coag SS RBC (Bld) [#/Vol] 4.32 106/mcL Invalid Interpretation Code 4.20 - 5.40 10^6/mcL AO Auto Heme SS WBC (Bld) [#/Vol] 4.20 103/mcL Invalid Interpretation Code 4.60 - 10.80 10^3/mcL AO Auto Heme SS LABORATORYOrdered By: Stephen Call on 05-18-2021 Calcium [Mass/Vol] 9.2 mg/dL Invalid Interpretation Code 8.4 - 10.2 mg/dL AO ADM SS Chloride [Moles/Vol] 104 mmol/L Invalid Interpretation Code 98 - 107 mmol/L AO ADM SS CO2 [Moles/Vol] 29 mmol/L Invalid Interpretation Code 23 - 31 mmol/L AO ADM SS Creatinine [Mass/Vol] 1.06 mg/dL Invalid Interpretation Code 0.55 - 1.02 mg/dL AO ADM SS Electrolyte Balance 8.0 mEq/L Invalid Interpretation Code 4.0 - 15.0 mEq/L AO ADM SS Glucose [Mass/Vol] 99 mg/dL Invalid Interpretation Code 83 - 110 mg/dL AO ADM SS Potassium [Moles/Vol] 4.8 mmol/L Invalid Interpretation Code 3.5 - 5.1 mmol/L AO ADM SS Sodium [Moles/Vol] 141 mmol/L Invalid Interpretation Code 136 - 145 mmol/L AO ADM SS Urea nitrogen [Mass/Vol] 17 mg/dL Invalid Interpretation Code 7 - 18 mg/dL AO ADM SS Urea nitrogen/Creatinine [Mass ratio] 16 ratio Invalid Interpretation Code 7 - 27 ratio AO ADM SS LABORATORYOrdered By: SYSTEM SYSTEM on 05-18-2021 GFR 62 ml/min/1.73sqm Invalid Interpretation Code AO Chemistry S GFR Non- 51 ml/min/1.73sqm Invalid Interpretation Code AO Chemistry S LABORATORYOrdered By: Stephen Call on 02-02-2021 Albumin BCP dye [Mass/Vol] 3.9 G/dL Invalid Interpretation Code 3.4 - 4.8 G/dL AO ADM SS Albumin/Globulin [Mass ratio] 1.1 {ratio} Invalid Interpretation Code 1.1 - 2.5 ratio AO ADM SS ALP [Catalytic activity/Vol] 114 U/L Invalid Interpretation Code 40 - 135 U/L AO ADM SS ALT With P-5'-P [Catalytic activity/Vol] 26 U/L Invalid Interpretation Code 14 - 59 U/L AO ADM SS AST With P-5'-P [Catalytic activity/Vol] 22 U/L Invalid Interpretation Code 10 - 40 U/L AO ADM SS Bilirubin [Mass/Vol] 0.8 mg/dL Invalid Interpretation Code 0.2 - 1.0 mg/dL AO ADM SS Calcium [Mass/Vol] 9.5 mg/dL Invalid Interpretation Code 8.4 - 10.2 mg/dL AO ADM SS Chloride [Moles/Vol] 103 mmol/L Invalid Interpretation Code 98 - 107 mmol/L AO ADM SS Cholesterol [Mass/Vol] 210 mg/dL Invalid Interpretation Code 0 - 200 mg/dL AO ADM SS Cholesterol in HDL [Mass/Vol] 81 mg/dL Invalid Interpretation Code 40 - 60 mg/dL AO ADM SS Cholesterol in LDL [Mass/Vol] 113 mg/dL Invalid Interpretation Code 0 - 130 mg/dL AO ADM SS CO2 [Moles/Vol] 25 mmol/L Invalid Interpretation Code 23 - 31 mmol/L AO ADM SS Creatinine [Mass/Vol] 0.91 mg/dL Invalid Interpretation Code 0.55 - 1.02 mg/dL AO ADM SS Electrolyte Balance 11.0 mEq/L Invalid Interpretation Code AO ADM SS Globulin 3.4 G/dL Invalid Interpretation Code AO ADM SS Glucose [Mass/Vol] 80 mg/dL Invalid Interpretation Code 83 - 110 mg/dL AO ADM SS Potassium [Moles/Vol] 4.1 mmol/L Invalid Interpretation Code 3.5 - 5.1 mmol/L AO ADM SS Protein [Mass/Vol] 7.3 G/dL Invalid Interpretation Code 6.4 - 8.2 G/dL AO ADM SS Sodium [Moles/Vol] 139 mmol/L Invalid Interpretation Code 136 - 145 mmol/L AO ADM SS Triglyceride [Mass/Vol] 81 mg/dL Invalid Interpretation Code 0 - 150 mg/dL AO ADM SS Urea nitrogen [Mass/Vol] 22 mg/dL Invalid Interpretation Code 7 - 18 mg/dL AO ADM SS Urea nitrogen/Creatinine [Mass ratio] 24 ratio Invalid Interpretation Code 7 - 27 ratio AO ADM SS LABORATORYOrdered By: SYSTEM SYSTEM on 02-02-2021 GFR 74 ml/min/1.73sqm Invalid Interpretation Code AO Chemistry S GFR Non- 61 ml/min/1.73sqm Invalid Interpretation Code AO Chemistry S LABORATORYOrdered By: Anamaria Nicole on 12-03-2020 Fibrin D-dimer DDU (PPP) [Mass/Vol] 319 ng/mL D-DU Invalid Interpretation Code 0 - 230 ng/mL D-DU AO Coag SS US-Stress Test Echo w/o Cont rast IMPORTon 08-24-2019 US-Stress Test Echo w/o Contrast IMPORT Images were obtained outside of [facility] US-Echo Complete IMPORTon US-Echo Complete IMPORT Images were obtained outside of [facility] CT-CT ANGIOGRAPHY NECK W/CON TRAST IMPORTon 08-09-2019 CT-CT ANGIOGRAPHY NECK W/CONTRAST IMPORT Images were obtained outside of [facility] XR CHEST 2 VIEWSon 7 XR CHEST 2 VIEWS ORIGINALXR CHEST 2 VIEWS CLINICAL STATEMENT: pneumonia COMPARISON: 07/30/16 FINDINGS:The cardiac contours are stable. No infiltrate or consolidation is noted. No vascular congestion is noted. Post operative changes are noted in the cervical soft tissues. Bone structures are stable. IMPRESSION:No acute process. Interpreted By: Leslie Camejoreliminary Report By: Leslie Camejo MDElectronically Signed By: Leslie Camejo MD Dictated Date: 08/16/2016 1:26:17 PM Prelim Date: 08/16/2016 1:26:17 PM Sign Date: 08/16/2016 1:28:27 PM Normal [facility] Vital Signs Date Time Vital Sign Value Performing Clinician Facility 08-29-2024 12:45-0400 Body height 152.4 cm Ame Machado APRN.CNP Work Phone: [facility] Comment on above: patient reports 08-29-2024 12:45-0400 Body mass index (BMI) [Ratio] 33.98 kg/m2 Ame Machado APRN.PROGRESSIVE ASSEMBLER AND FITTER Work Phone: [facility] 08-29-2024 12:45-0400 Body weight 78.93 kg Ame Machado APRN.PROGRESSIVE ASSEMBLER AND FITTER Work Phone: [facility] 08-29-2024 12:45-0400 Diastolic blood pressure 60 mm[Hg] Ame Machado APRN.PROGRESSIVE ASSEMBLER AND FITTER Work Phone: [facility] 08-29-2024 12:45-0400 Heart rate 53 /min Ame Machado APRN.PROGRESSIVE ASSEMBLER AND FITTER Work Phone: [facility] 08-29-2024 12:45-0400 SaO2% (BldA) [Mass fraction] 98 % Ame Machado APRN.PROGRESSIVE ASSEMBLER AND FITTER Work Phone: [facility] 08-29-2024 12:45-0400 Systolic blood pressure 110 mm[Hg] Ame Machado APRN.PROGRESSIVE ASSEMBLER AND FITTER Work Phone: [facility] 11-09-2023 11:16-0400 Body mass index (BMI) [Ratio] 34.57 kg/m2 Duke Carrion MD Work Phone: [facility] 11-09-2023 11:16-0400 Body weight 80.29 kg Duke Carrion MD Work Phone: [facility] 11-09-2023 11:16-0400 Diastolic blood pressure 50 mm[Hg] Duke Carrion MD Work Phone: [facility] 11-09-2023 11:16-0400 Heart rate 68 /min Duke Carrion MD Work Phone: [facility] 11-09-2023 11:16-0400 SaO2% (BldA) [Mass fraction] 97 % Duke Carrion MD Work Phone: [facility] 11-09-2023 11:16-0400 Systolic blood pressure 95 mm[Hg] Duke Carrion MD Work Phone: [facility] 08-17-2023 14:13-0400 Body height 152.4 cm Inocencia Aaron DO Work Phone: [facility] 08-17-2023 14:13-0400 Body mass index (BMI) [Ratio] 33.2 kg/m2 Inocencia Aaron DO Work Phone: [facility] 08-17-2023 14:13-0400 Body weight 77.11 kg Inocencia Aaron DO Work Phone: [facility] 08-17-2023 14:13-0400 Diastolic blood pressure 70 mm[Hg] Inocencia Aaron DO Work Phone: [facility] 08-17-2023 14:13-0400 Heart rate 62 /min Inocencia Aaron DO Work Phone: [facility] 08-17-2023 14:13-0400 Respiratory rate 16 /min Inocencia Aaron DO Work Phone: [facility] 08-17-2023 14:13-0400 SaO2% (BldA) [Mass fraction] 98 % Inocencia Aaron DO Work Phone: [facility] 08-17-2023 14:13-0400 Systolic blood pressure 120 mm[Hg] Inocencia Aaron DO Work Phone: [facility] 08-12-2023 13:46-0400 Body height 152.4 cm Bree Easton APRN.PROGRESSIVE ASSEMBLER AND FITTER Work Phone: [facility] 08-12-2023 13:46-0400 Body mass index (BMI) [Ratio] 34.1 kg/m2 Bree Easton APRN.PROGRESSIVE ASSEMBLER AND FITTER Work Phone: [facility] 08-12-2023 13:46-0400 Body weight 79.2 kg Bree Easton APRN.PROGRESSIVE ASSEMBLER AND FITTER Work Phone: [facility] 08-12-2023 13:46-0400 Diastolic blood pressure 70 mm[Hg] Bree Easton APRN.PROGRESSIVE ASSEMBLER AND FITTER Work Phone: [facility] 08-12-2023 13:46-0400 Heart rate 58 /min Bree Easton APRN.PROGRESSIVE ASSEMBLER AND FITTER Work Phone: [facility] 08-12-2023 13:46-0400 Respiratory rate 16 /min Bree Easton APRN.PROGRESSIVE ASSEMBLER AND FITTER Work Phone: [facility] 08-12-2023 13:46-0400 SaO2% (BldA) [Mass fraction] 98 % Bree Easton APRN.PROGRESSIVE ASSEMBLER AND FITTER Work Phone: [facility] 08-12-2023 13:46-0400 Systolic blood pressure 122 mm[Hg] Bree Easton APRN.PROGRESSIVE ASSEMBLER AND FITTER Work Phone: [facility] 07-21-2023 15:22-0400 Body mass index (BMI) [Ratio] 37.22 kg/m2 Ileana Bean PT Work Phone: [facility] 07-21-2023 15:22-0400 Body weight 86.46 kg Ileana Bean PT Work Phone: [facility] 07-21-2023 15:22-0400 Diastolic blood pressure 74 mm[Hg] Karena Bradley LPN Work Phone: [facility] 07-21-2023 15:22-0400 Heart rate 76 /min Karena Bradley LPN Work Phone: [facility] 07-21-2023 15:22-0400 Respiratory rate 17 /min Karena Bradley CUT FILE CLERK Work Phone: [facility] 07-21-2023 15:22-0400 SaO2% (BldA) [Mass fraction] 95 % Ileana Bean PT Work Phone: [facility] 07-21-2023 15:22-0400 Systolic blood pressure 126 mm[Hg] Karenagreg Bradley CUT FILE CLERK Work Phone: [facility] 07-21-2023 13:00-0400 Body temperature 98.1 [degF] Ileana Bean PT Work Phone: [facility] 07-21-2023 13:00-0400 Diastolic blood pressure 86 mm[Hg] Ileana Bean PT Work Phone: [facility] 07-21-2023 13:00-0400 Heart rate 69 /min Ileana Bean PT Work Phone: [facility] 07-21-2023 13:00-0400 Respiratory rate 18 /min Ileana Bean PT Work Phone: [facility] 07-21-2023 13:00-0400 Systolic blood pressure 140 mm[Hg] Ileana Bean PT Work Phone: [facility] 07-19-2023 15:20-0400 Body mass index (BMI) [Ratio] 37.61 kg/m2 Angel Jones RN Work Phone: [facility] 07-19-2023 15:20-0400 Body temperature 98.71 [degF] Angle Jones RN Work Phone: [facility] 07-19-2023 15:20-0400 Body weight 87.36 kg Angel Jones RN Work Phone: [facility] 07-19-2023 15:20-0400 Diastolic blood pressure 82 mm[Hg] Angel Jones RN Work Phone: [facility] 07-19-2023 15:20-0400 Heart rate 85 /min Angel Jones RN Work Phone: [facility] 07-19-2023 15:20-0400 Respiratory rate 16 /min Angel Jones RN Work Phone: [facility] 07-19-2023 15:20-0400 SaO2% (BldA) [Mass fraction] 95 % Angel Jones RN Work Phone: [facility] Comment on above: after ambulation on RA 07-19-2023 15:20-0400 Systolic blood pressure 138 mm[Hg] Angel Jones RN Work Phone: [facility] 05-27-2023 09:16-0400 Body height 152.4 cm TRAVELING NURSE-C Leonor Orellana TRAVELING NURSE Work Phone: [facility] 05-27-2023 09:16-0400 Body mass index (BMI) [Ratio] 36.7 kg/m2 TRAVELING NURSE-C Leonor Orellana TRAVELING NURSE Work Phone: [facility] 05-27-2023 09:16-0400 Body temperature 97.2 [degF] TRAVELING NURSE-C Leonor Orellana TRAVELING NURSE Work Phone: [facility] 05-27-2023 09:16-0400 Body weight 85.27 kg TRAVELING NURSE-C Leonor Orellana TRAVELING NURSE Work Phone: [facility] 05-27-2023 09:16-0400 Diastolic blood pressure 78 mm[Hg] TRAVELING NURSE-C Leonor Orellana TRAVELING NURSE Work Phone: [facility] 05-27-2023 09:16-0400 Heart rate 78 /min TRAVELING NURSE-C Leonor Orellana TRAVELING NURSE Work Phone: [facility] 05-27-2023 09:16-0400 Respiratory rate 22 /min TRAVELING NURSE-C Leonor Orellana TRAVELING NURSE Work Phone: [facility] 05-27-2023 09:16-0400 SaO2% (BldA) [Mass fraction] 96 % TRAVELING NURSE-C Leonor Orellana TRAVELING NURSE Work Phone: [facility] 05-27-2023 09:16-0400 Systolic blood pressure 143 mm[Hg] TRAVELING NURSE-C Leonor Orellana TRAVELING NURSE Work Phone: [facility] 04-26-2023 07:51-0400 Body height 152.4 cm TRAVELING NURSE-C Leonor Orellana TRAVELING NURSE Work Phone: [facility] 04-26-2023 07:51-0400 Body mass index (BMI) [Ratio] 36.1 kg/m2 TRAVELING NURSE-C Leonor Orellana TRAVELING NURSE Work Phone: [facility] 04-26-2023 07:51-0400 Body temperature 97.6 [degF] TRAVELING NURSE-C Leonor Orellana TRAVELING NURSE Work Phone: [facility] 04-26-2023 07:51-0400 Body weight 83.91 kg TRAVELING NURSE-C Leonor Orellana TRAVELING NURSE Work Phone: [facility] 04-26-2023 07:51-0400 Diastolic blood pressure 69 mm[Hg] TRAVELING NURSE-C Leonor Orellana TRAVELING NURSE Work Phone: [facility] 04-26-2023 07:51-0400 Heart rate 74 /min TRAVELING NURSE-C Leonor Orellana TRAVELING NURSE Work Phone: [facility] 04-26-2023 07:51-0400 Respiratory rate 20 /min TRAVELING NURSE-C Leonor Orellana TRAVELING NURSE Work Phone: [facility] 04-26-2023 07:51-0400 SaO2% (BldA) [Mass fraction] 98 % TRAVELING NURSE-C Leonor Orellana TRAVELING NURSE Work Phone: [facility] 04-26-2023 07:51-0400 Systolic blood pressure 110 mm[Hg] TRAVELING NURSE-C Leonor Orellana TRAVELING NURSE Work Phone: [facility] 12-21-2022 13:51-0500 Body height 152.4 cm TRAVELING NURSE-C Leonor Orellana TRAVELING NURSE Work Phone: [facility] 12-21-2022 13:51-0500 Body mass index (BMI) [Ratio] 36.5 kg/m2 TRAVELING NURSE-C Leonor Orellana TRAVELING NURSE Work Phone: [facility] 12-21-2022 13:51-0500 Body weight 84.82 kg TRAVELING NURSE-C Leonor Orellana TRAVELING NURSE Work Phone: [facility] 12-21-2022 13:51-0500 Diastolic blood pressure 75 mm[Hg] TRAVELING NURSE-C Leonor Orellana TRAVELING NURSE Work Phone: [facility] 12-21-2022 13:51-0500 Heart rate 73 /min TRAVELING NURSE-C Leonor Orellana TRAVELING NURSE Work Phone: [facility] 12-21-2022 13:51-0500 Respiratory rate 18 /min TRAVELING NURSE-C Leonor Orellana TRAVELING NURSE Work Phone: [facility] 12-21-2022 13:51-0500 Systolic blood pressure 133 mm[Hg] TRAVELING NURSE-C Leonor Orellana TRAVELING NURSE Work Phone: [facility] 08-18-2022 10:09-0400 Body height 152.4 cm Ame Machado APRN.PROGRESSIVE ASSEMBLER AND FITTER Work Phone: [facility] 08-18-2022 10:09-0400 Body weight 87.91 kg Ame Machado APRN.PROGRESSIVE ASSEMBLER AND FITTER Work Phone: [facility] 08-18-2022 10:09-0400 Diastolic blood pressure 62 mm[Hg] Ame Machado APRN.PROGRESSIVE ASSEMBLER AND FITTER Work Phone: [facility] 08-18-2022 10:09-0400 Heart rate 83 /min Ame Machado APRN.PROGRESSIVE ASSEMBLER AND FITTER Work Phone: [facility] 08-18-2022 10:09-0400 SaO2% (BldA) [Mass fraction] 97 % Ame Machado APRN.PROGRESSIVE ASSEMBLER AND FITTER Work Phone: [facility] 08-18-2022 10:09-0400 Systolic blood pressure 124 mm[Hg] Ame Machado APRN.PROGRESSIVE ASSEMBLER AND FITTER Work Phone: [facility] 04-27-2022 06:36-0400 Body height 152.4 cm TRAVELING NURSE-C Leonor Orellana TRAVELING NURSE Work Phone: [facility] 04-27-2022 06:36-0400 Body mass index (BMI) [Ratio] 37.7 kg/m2 TRAVELING NURSE-C Leonor Orellana TRAVELING NURSE Work Phone: [facility] 04-27-2022 06:36-0400 Body temperature 97.5 [degF] TRAVELING NURSE-C Leonor Orellana TRAVELING NURSE Work Phone: [facility] 04-27-2022 06:36-0400 Body weight 87.54 kg TRAVELING NURSE-C Leonor Orellana TRAVELING NURSE Work Phone: [facility] 04-27-2022 06:36-0400 Diastolic blood pressure 83 mm[Hg] TRAVELING NURSE-C Leonor Orellana TRAVELING NURSE Work Phone: [facility] 04-27-2022 06:36-0400 Heart rate 84 /min TRAVELING NURSE-C Leonor Orellana TRAVELING NURSE Work Phone: [facility] 04-27-2022 06:36-0400 Respiratory rate 18 /min TRAVELING NURSE-C Leonor Orellana TRAVELING NURSE Work Phone: [facility] 04-27-2022 06:36-0400 SaO2% (BldA) [Mass fraction] 97 % TRAVELING NURSE-C Leonor Orellana TRAVELING NURSE Work Phone: [facility] 04-27-2022 06:36-0400 Systolic blood pressure 157 mm[Hg] TRAVELING NURSE-C Leonor Orellana TRAVELING NURSE Work Phone: [facility] 02-02-2022 11:25-0500 Body mass index (BMI) [Ratio] 38 kg/m2 TRAVELING NURSE-C Leonor Orellana TRAVELING NURSE Work Phone: [facility] 02-02-2022 11:25-0500 Body temperature 98.4 [degF] TRAVELING NURSE-C Leonor Orellana TRAVELING NURSE Work Phone: [facility] 02-02-2022 11:25-0500 Body weight 88.45 kg TRAVELING NURSE-C Leonor Orellana TRAVELING NURSE Work Phone: [facility] 02-02-2022 11:25-0500 Diastolic blood pressure 78 mm[Hg] TRAVELING NURSE-C Leonor Orellana TRAVELING NURSE Work Phone: [facility] 02-02-2022 11:25-0500 Heart rate 94 /min TRAVELING NURSE-C Leonor Orellana TRAVELING NURSE Work Phone: [facility] 02-02-2022 11:25-0500 Respiratory rate 18 /min TRAVELING NURSE-C Leonor Orellana TRAVELING NURSE Work Phone: [facility] 02-02-2022 11:25-0500 SaO2% (BldA) [Mass fraction] 99 % TRAVELING NURSE-C Leonor Orellana TRAVELING NURSE Work Phone: [facility] 02-02-2022 11:25-0500 Systolic blood pressure 125 mm[Hg] TRAVELING NURSE-C Leonor Orellana TRAVELING NURSE Work Phone: [facility] 07-31-2021 14:53-0400 Body height 152.4 cm Inocencia Aaron DO Work Phone: [facility] 07-31-2021 14:53-0400 Body weight 84.82 kg Inocencia Aaron DO Work Phone: [facility] 07-31-2021 14:53-0400 Diastolic blood pressure 62 mm[Hg] Inocencia Aaron DO Work Phone: [facility] 07-31-2021 14:53-0400 Heart rate 75 /min Inocencia Aaron DO Work Phone: [facility] 07-31-2021 14:53-0400 SaO2% (BldA) [Mass fraction] 97 % Inocencia Aaron DO Work Phone: [facility] 07-31-2021 14:53-0400 Systolic blood pressure 102 mm[Hg] Inocencia Aaron DO Work Phone: [facility] 06-23-2021 10:55-0400 Body height 152.4 cm LEN MAJANO DO [facility] 06-23-2021 10:55-0400 Body weight 87.2 kg LEN MAJANO DO [facility] 06-23-2021 10:55-0400 Body weight 37.54 kg/m2 LEN MAJANO DO [facility] 06-23-2021 10:55-0400 diastolic 64 mm[Hg] LEN MAJANO DO [facility] 06-23-2021 10:55-0400 Heart rate 68 /min LEN MAJANO DO [facility] 06-23-2021 10:55-0400 systolic 118 mm[Hg] LEN MAJANO DO [facility] 09-10-2020 11:05-0400 Body height 152.4 cm Eleazar Tsang MD Work Phone: [facility] 09-10-2020 11:05-0400 Body weight 82.56 kg Eleazar Tsang MD Work Phone: [facility] 09-10-2020 11:05-0400 Diastolic blood pressure 78 mm[Hg] Eleazar Tsang MD Work Phone: [facility] 09-10-2020 11:05-0400 Heart rate 73 /min Eleazar Tsang MD Work Phone: [facility] 09-10-2020 11:05-0400 Respiratory rate 18 /min Eleazar Tsang MD Work Phone: [facility] 09-10-2020 11:05-0400 SaO2% (BldA) [Mass fraction] 97 % Eleazar Tsang MD Work Phone: [facility] 09-10-2020 11:05-0400 Systolic blood pressure 136 mm[Hg] Eleazar Tsang MD Work Phone: [facility] 08-27-2019 13:21-0400 Body weight 84.82 kg Eleazar [facility] 08-27-2019 13:21-0400 BP Diastolic 80 mm[Hg] Eleazar [facility] 08-27-2019 13:0400 BP Systolic 140 mm[Hg] [facility] 08-27-2019 13:0400 Height 152.4 cm [facility] 08-27-2019 13:0400 Pulse (Heart Rate) 76 /min Eleazar [facility] 08-27-2019 13:040 Respiratory Rate 18 /min Ele[facility] Encounters Encounter Date Encounter Type Care Provider Facility Start: 01-09-2025 ambulatory Tesha FLORES Facility:[facility] Start: 01-07-2025 ambulatory Shannon Bradshaw TRAVELING NURSE Fac ility:[facility] Start: 01-03-2025 ambulatory Shannon Bradshaw TRAVELING NURSE Fac ility:[facility] Start: 12-20-2024 End: 12-20-2024 ambulatory Tesha FLORES Facility:[facility] Start: 12-18-2024 End: 12-18-2024 ambulatory Shannon Bradshaw TRAVELING NURSE Facility:[facility] Start: 11-26-2024 End: 11-26-2024 ambulatory LEONOR ORELLANA SOLAR DESIGNER/INSTALLER-PROGRESSIVE ASSEMBLER AND FITTER Facility:[facility] Start: 11-26-2024 End: 11-26-2024 Patient encounter procedure LEONOR ORELLANA SOLAR DESIGNER/INSTALLER-PROGRESSIVE ASSEMBLER AND FITTER [facility] Start: 08-29-2024 End: 08-29-2024 Patient encounter procedure Ame Machado SOLAR DESIGNER/INSTALLER.PROGRESSIVE ASSEMBLER AND FITTER Work Phone: [facility] Comment on above: Carotid stenosis, as ymptomatic, bilateral (Primary Dx); History of right-sided carotid endarterectomy Start: 08-29-2024 End: 08-29-2024 ambulatory AME MACHADO Facility:[facility] Start: 08-16-2024 ambulatory LEONOR REYNA Facility :[facility] Start: 08-16-2024 End: 08-16-2024 Subsequent hospital visit by physician [facility] Comment on above: Bilateral carotid ar maritza stenosis [I65.23] Start: 07-12-2024 End: 07-12-2024 ambulatory LEONOR ORELLANA SOLAR DESIGNER/INSTALLER-PROGRESSIVE ASSEMBLER AND FITTER Facility:[facility] Start: 07-12-2024 End: 07-12-2024 Patient encounter procedure LEONOR ORELLANA SOLAR DESIGNER/INSTALLER-PROGRESSIVE ASSEMBLER AND FITTER [facility] Start: 06-01-2024 End: 06-01-2024 ambulatory Tesha FLORES Facility:[facility] Start: 05-25-2024 End: 05-25-2024 Telephone encounter Inocencia Aaron DO Work Phone: [facility] Comment on above: Appointment (Annual with testing) Start: 04-16-2024 End: 04-16-2024 ambulatory LEONOR THORNEBEATRIS SOLAR DESIGNER/INSTALLER-PROGRESSIVE ASSEMBLER AND FITTER Facility:[facility] Start: 04-16-2024 End: 04-16-2024 Patient encounter procedure LEONORYANN ORELLANA SOLAR DESIGNER/INSTALLER-PROGRESSIVE ASSEMBLER AND FITTER [facility] Start: 02-01-2024 End: 02-01-2024 ambulatory Tesha FLORES Facility:[facility] Start: 01-02-2024 End: 01-02-2024 ambulatory Leonor Orellana NP Facility:[facility] Start: 12-15-2023 End: 12-15-2023 ambulatory LEONOR ORELLANA SOLAR DESIGNER/INSTALLER-PROGRESSIVE ASSEMBLER AND FITTER Facility:[facility] Start: 12-15-2023 End: 12-15-2023 Patient encounter procedure LEONOR ORELLANA SOLAR DESIGNER/INSTALLER-PROGRESSIVE ASSEMBLER AND FITTER [facility] Start: 11-25-2023 ambulatory LEONOR ORELLANA Facility :[facility] Start: 11-25-2023 End: 11-25-2023 Subsequent hospital visit by physician [facility] TESTING Comment on above: Paroxysmal atrial fi brillation (HCC) [I48.0] Start: 11-09-2023 End: 11-09-2023 Patient encounter procedure Duke Carrion MD Work Phone: [facility] Comment on above: Paroxysmal atrial fi brillation (HCC) (Primary Dx); Coronary artery disease involving chilkat coronary artery of chilkat heart without angina pectoris; Primary hypertension; Other hyperlipidemia; S/P CABG x 3; H/O carotid endarterectomy; ERICKA (obstructive sleep apnea); Obesity, Class II, BMI 35-39.9 Start: 11-09-2023 End: 11-09-2023 ambulatory MONICA MILLER Facility:[facility] Start: 10-19-2023 End: 01-03-[address] JAN APARICIO MD [facility] Start: 10-07-[address] JAN JORDAN MD Facility:B Start: 09-16-2023 Home visit Denae Martinez [facility] Comment on above: AGENCY DC NO DOMITILA Start: 08-30-2023 End: 08-30-2023 ambulatory LEONOR ORELLANA SOLAR DESIGNER/INSTALLER-PROGRESSIVE ASSEMBLER AND FITTER Facility:B Start: 08-30-2023 End: 08-30-2023 Patient encounter procedure LEONOR ORELLANA SOLAR DESIGNER/INSTALLER-PROGRESSIVE ASSEMBLER AND FITTER [facility] Start: 08-29-2023 End: 08-29-2023 ambulatory LEONOR ORELLANA SOLAR DESIGNER/INSTALLER-PROGRESSIVE ASSEMBLER AND FITTER Facility:B Start: 08-29-2023 End: 08-29-2023 Patient encounter procedure LEONOR ORELLANA SOLAR DESIGNER/INSTALLER-PROGRESSIVE ASSEMBLER AND FITTER [facility] Start: 08-19-2023 Telephone encounter Bree morin APRN.PROGRESSIVE ASSEMBLER AND FITTER Work Phone: [facility] Comment on above: Cardiac Rehab (Refer ral info) Start: 08-17-2023 End: 08-17-2023 Patient encounter procedure Inocencia Aaron DO Work Phone: [facility] Comment on above: Bilateral carotid ar maritza stenosis (Primary Dx); History of right-sided carotid endarterectomy Start: 08-12-2023 End: 08-12-2023 Subsequent hospital visit by physician [facility] Comment on above: S/P CABG (coronary a rtery bypass graft) [Z95.1] Start: 08-12-2023 End: 08-12-2023 Patient encounter procedure Bree Easton MITCH.PROGRESSIVE ASSEMBLER AND FITTER Work Phone: [facility] Comment on above: S/P CABG (coronary a rtery bypass graft) (Primary Dx); Multiple vessel coronary artery disease; Hx of non-ST elevation myocardial infarction (NSTEMI); Acute respiratory insufficiency, postoperative; Pleural effusion, right; Paroxysmal atrial fibrillation (HCC) Start: 08-10-2023 Refill Mary marrero SOLAR DESIGNER/INSTALLER.PROGRESSIVE ASSEMBLER AND FITTER Work Phone: [facility] Comment on above: Med Change Request Start: 08-08-2023 Orders Only Jan Salas ra, MD Work Phone: [facility] Start: 07-26-2023 Telephone encounter Johnny Turner RN Work Phone: [facility] Comment on above: Home Care (Patient h as been admitted to the hospital.) Start: 07-26-2023 End: 07-26-2023 Home visit Johnny Polo RN Work Phone: [facility] Comment on above: SN TRANSFER OT UNMADE VISIT Start: 07-25-2023 Telephone encounter Monica Miller APRN.PROGRESSIVE ASSEMBLER AND FITTER Work Phone: [facility] Comment on above: Referral Information Start: 07-25-2023 End: 07-25-2023 Home visit Robina Rowe UKE DRIVER Work Phone: [facility] Comment on above: HARD TILE SETTER APPRENTICE CARE COORDINATIO N Start: 07-22-2023 End: 07-22-2023 Home visit Johnny Polo RN Work Phone: [facility] Comment on above: CARE COORDINATION Start: 07-22-2023 Telephone encounter Leonor liu PROGRESSIVE ASSEMBLER AND FITTER Work Phone: [facility] Comment on above: Home Care (OT Delay in service call ) Start: 07-21-2023 End: 07-21-2023 Home visit Ileana Bean PT Work Phone: [facility] Comment on above: PT EVAL SN ROUTINE Start: 07-20-2023 Home visit Monica Coreas rt RN Work Phone: [facility] Comment on above: HH TRIAGE PHONE CALL Start: 07-20-2023 Telephone encounter Mavis champagne RN Work Phone: [facility] Comment on above: Nausea Patient Update (Expe riencing extreme nausea) Home Care (HARD TILE SETTER APPRENTICE reque st) Start: 07-19-2023 Telephone encounter Inocencia Aaron DO Work Phone: [facility] Comment on above: Appointment (Appoint ment) Home Care (Antinause a med request, med clarification) Start: 07-19-2023 End: 07-19-2023 Home visit Angel Jones RN Work Phone: [facility] Comment on above: SN SOC Start: 07-18-2023 Telephone encounter Yasmeen cook CUT FILE CLERK Work Phone: [facility] Comment on above: Home Care (Confirmat ion call.) Start: 07-08-2023 Telephone encounter Jan dockery MD Work Phone: [facility] Comment on above: Schedule Surgery Start: 07-07-2023 Telephone encounter Roxanna Laurent CUT FILE CLERK Work Phone: [facility] Comment on above: Opened In Error Start: 07-04-2023 Telephone encounter Inocencia Aaron DO Work Phone: [facility] Start: 06-21-2023 Telephone encounter Inocencia Aaron DO Work Phone: [facility] Comment on above: Appointment (Appoint ment) Start: 06-20-2023 Orders Only Ame schrader SOLAR DESIGNER/INSTALLER.PROGRESSIVE ASSEMBLER AND FITTER Work Phone: [facility] Comment on above: Internal carotid art mono stenosis, bilateral (Primary Dx); History of right-sided carotid endarterectomy Start: 06-13-2023 End: 06-13-2023 ambulatory SAMMY PALMER PA-C Facility:B Start: 06-13-2023 End: 06-13-2023 Patient encounter procedure SAMMY PALMER PA-C [facility] Start: 06-09-2023 Non-patient / Non-visit TRAVELING NURSE-C Yan Orellana TRAVELING NURSE Work Phone: [facility] Start: 06-09-2023 End: 06-09-2023 ambulatory TRAVELING NURSE-C Leonor Orellana TRAVELING NURSE Work Phone: [facility] Work Phone: Start: 06-09-2023 End: 06-09-2023 Patient encounter procedure TRAVELING NURSE-C Leonor Orellana TRAVELING NURSE Work Phone: [facility] Work Phone: Start: 06-02-2023 End: 06-02-2023 ambulatory TRAVELING NURSE-C Leonor Orellana TRAVELING NURSE Work Phone: [facility] Work Phone: Start: 06-02-2023 End: 06-02-2023 Patient encounter procedure TRAVELING NURSE-C Leonor Orellana TRAVELING NURSE Work Phone: [facility]-Laboratory Work Phone: Start: 05-27-2023 End: 05-27-2023 Patient encounter procedure TRAVELING NURSE-C Leonor Orellana TRAVELING NURSE Work Phone: [facility] Work Phone: Start: 05-11-2023 End: 05-11-2023 ambulatory TRAVELING NURSE-C Leonor Orellana TRAVELING NURSE Work Phone: [facility] Work Phone: Start: 05-11-2023 End: 05-11-2023 Patient encounter procedure TRAVELING NURSE-C Leonor Orellana TRAVELING NURSE Work Phone: [facility]-Cat Scan, [facility] Work Phone: Start: 04-26-2023 End: 04-26-2023 Patient encounter procedure TRAVELING NURSE-C Leonor Orellana TRAVELING NURSE Work Phone: [facility] [place] Work Phone: Start: 03-17-2023 End: 03-17-2023 ambulatory LEONOR ORELLANA SOLAR DESIGNER/INSTALLER-PROGRESSIVE ASSEMBLER AND FITTER Facility:B Start: 03-17-2023 End: 03-17-2023 Patient encounter procedure LEONOR ORELLANA SOLAR DESIGNER/INSTALLER-PROGRESSIVE ASSEMBLER AND FITTER [facility] Start: 01-27-2023 End: 01-27-2023 Patient encounter procedure TRAVELING NURSE-C Leonor Orellana TRAVELING NURSE Work Phone: [facility]Labor[facility] Work Phone: Start: 12-21-2022 End: 12-21-2022 ambulatory TRAVELING NURSE-C Leonor Orellana TRAVELING NURSE Work Phone: [facility] Work Phone: Start: 12-21-2022 End: 12-21-2022 Patient encounter procedure TRAVELING NURSE-C Leonor Orellana TRAVELING NURSE Work Phone: [facility] Work Phone: Start: 11-24-2022 End: 11-28-2022 ambulatory LEONOR ORELLANA SOLAR DESIGNER/INSTALLER-PROGRESSIVE ASSEMBLER AND FITTER Facility:B Start: 11-24-2022 End: 11-28-2022 Outreach Lab LEONOR ORELLANA SOLAR DESIGNER/INSTALLER-PROGRESSIVE ASSEMBLER AND FITTER [facility] Start: 11-17-2022 End: 11-21-2022 ambulatory LEONOR ORELLANA SOLAR DESIGNER/INSTALLER-PROGRESSIVE ASSEMBLER AND FITTER Facility:B Start: 09-14-2022 End: 09-14-2022 Patient encounter procedure LEONOR ORELLANA SOLAR DESIGNER/INSTALLER-PROGRESSIVE ASSEMBLER AND FITTER [facility] Start: 08-24-2022 Telephone encounter Ame Castro kerry SOLAR DESIGNER/INSTALLER.PROGRESSIVE ASSEMBLER AND FITTER Work Phone: [facility] Comment on above: Appointment Start: 08-18-2022 End: 08-18-2022 Patient encounter procedure Ame Machado SOLAR DESIGNER/INSTALLER.PROGRESSIVE ASSEMBLER AND FITTER Work Phone: [facility] Comment on above: Internal carotid art mono stenosis, bilateral (Primary Dx); History of right-sided carotid endarterectomy; Chronic venous insufficiency; Leg swelling Start: 05-07-2022 End: 05-07-2022 ambulatory TRAVELING NURSE-C Leonor Orellana TRAVELING NURSE Work Phone: [facility] Work Phone: Start: 05-07-2022 End: 05-07-2022 Patient encounter procedure TRAVELING NURSE-Christine Orellana TRAVELING NURSE Work Phone: [facility] Start: 04-27-2022 End: 04-27-2022 Patient encounter procedure TRAVELING NURSE-Christine Orellana NP Work Phone: [facility] Start: 03-05-2022 End: 03-05-2022 Patient encounter procedure LEONOR ORELLANA SOLAR DESIGNER/INSTALLER-PROGRESSIVE ASSEMBLER AND FITTER [facility] Start: 02-23-2022 End: 02-23-2022 Patient encounter procedure LEONOR ORELLANA SOLAR DESIGNER/INSTALLER-PROGRESSIVE ASSEMBLER AND FITTER [facility] Start: 02-16-2022 End: 02-16-2022 Patient encounter procedure LEONOR ORELLANA SOLAR DESIGNER/INSTALLER-PROGRESSIVE ASSEMBLER AND FITTER [facility] Start: 02-02-2022 End: 02-02-2022 Patient encounter procedure TRAVELING NURSE-Christine Orellana TRAVELING NURSE Work Phone: [facility] Start: 11-02-2021 End: 11-02-2021 Patient encounter procedure LEONOR ORELLANA SOLAR DESIGNER/INSTALLER-PROGRESSIVE ASSEMBLER AND FITTER [facility] Start: 10-20-2021 End: 10-20-2021 Patient encounter procedure LEONOR ORELLANA SOLAR DESIGNER/INSTALLER-PROGRESSIVE ASSEMBLER AND FITTER [facility] Start: 09-24-2021 End: 09-24-2021 Patient encounter procedure LEONOR ORELLANA SOLAR DESIGNER/INSTALLER-PROGRESSIVE ASSEMBLER AND FITTER [facility] Start: 08-24-2021 End: 09-15-2021 Physical therapy management LEN MAJANO DO [facility] Start: 08-11-2021 End: 08-11-2021 Patient encounter procedure LEONOR ORELLANA SOLAR DESIGNER/INSTALLER-PROGRESSIVE ASSEMBLER AND FITTER [facility] Start: 07-31-2021 End: 07-31-2021 Patient encounter procedure Inocencia Aaron DO Work Phone: [facility] Comment on above: Carotid stenosis, as ymptomatic, bilateral (Primary Dx) Start: 07-21-2021 End: 07-21-2021 Subsequent hospital visit by physician [place] [facility] Comment on above: Asymptomatic bilater al carotid artery stenosis [I65.23] Start: 06-23-2021 End: 06-23-2021 Admission to establishment LEN MAJANO DO [facility] Start: 06-17-2021 Telephone encounter Eleazar Tsang MD Work Phone: [facility] Comment on above: Appointment Start: 05-18-2021 End: 05-18-2021 Patient encounter procedure LEN MAJANO DO [facility] Start: 03-09-2021 End: 03-09-2021 Patient encounter procedure LEONOR THORNEBEATRIS SOLAR DESIGNER/INSTALLER-PROGRESSIVE ASSEMBLER AND FITTER [facility] Start: 02-02-2021 End: 02-02-2021 Patient encounter procedure LEONOR REYNA SOLAR DESIGNER/INSTALLER-PROGRESSIVE ASSEMBLER AND FITTER [facility] Start: 12-03-2020 End: 12-03-2020 Patient encounter procedure LEONOR REYNA SOLAR DESIGNER/INSTALLER-PROGRESSIVE ASSEMBLER AND FITTER [facility] Start: 12-01-2020 End: 01-21-2021 Physical therapy management LEONOR ORELLANA SOLAR DESIGNER/INSTALLER-PROGRESSIVE ASSEMBLER AND FITTER [facility] Start: 11-26-2020 End: 11-26-2020 Patient encounter procedure LEONOR REYNA SOLAR DESIGNER/INSTALLER-PROGRESSIVE ASSEMBLER AND FITTER [facility] Start: 09-10-2020 End: 09-10-2020 Patient encounter procedure Eleazar Tsang MD Work Phone: [facility] Comment on above: Asymptomatic bilater al carotid artery stenosis (Primary Dx); Chronic venous insufficiency Start: 08-27-2019 Patient encounter status TRAVELING NURSE-C Leonor Orellana NP Work Phone: [facility] Start: 08-27-2019 End: 08-27-2019 Patient encounter procedure Eleazar Tsang Work Phone: [facility] Comment on above: Asymptomatic bilater al carotid artery stenosis (Primary Dx) Start: 08-16-2016 End: 08-17-2016 Ambulatory PHY WO ID REFERRING Facility:[facility] Procedures Date Procedure Procedure Detail Performing Clinician Start: 07-16-2023 Coronary artery bypa ss grafts x 3 LEONOR ORELLANA SOLAR DESIGNER/INSTALLER-PROGRESSIVE ASSEMBLER AND FITTER Start: 07-12-2023 History of coronary artery bypass grafting S/P CABG x 3 Yasmeen William CUT FILE CLERK Work Phone: Start: 07-08-2023 Lipid 1996 panel - S yolanda or Plasma Jan Aparicio MD Work Phone: Start: 07-07-2023 History of carotid endarterectomy H/O carotid endarterectomy Roxanna Birminghamsarah CUT FILE CLERK Work Phone: Start: 06-09-2023 Radionuclide imaging of perfusion of myocardium under exercise stress TRAVELING NURSE-C Leonor Orellana TRAVELING NURSE Work Phone: Start: 05-11-2023 CT of chest TRAVELING NURSE-C Kimberley Orellana TRAVELING NURSE Work Phone: Start: 05-07-2022 CT of chest TRAVELING NURSE-C Kimberley Orellana TRAVELING NURSE Work Phone: Start: 04-14-2022 Z-plasty of eyelid KARINA YANN REYNA SOLAR DESIGNER/INSTALLER-PROGRESSIVE ASSEMBLER AND FITTER Comment on above: eyelids lifted Start: 12-15-2021 Cataract (disorder) RITA PIZARROCYNDIE REYNA SOLAR DESIGNER/INSTALLER-PROGRESSIVE ASSEMBLER AND FITTER Start: 11-14-2021 Cataract (disorder) RITA MOIRACYNDIE REYNA SOLAR DESIGNER/INSTALLER-PROGRESSIVE ASSEMBLER AND FITTER Start: 07-21-2021 Duplex scan extracra nial art compl bi study Eleazar Tsang MD Work Phone: Start: 07-07-2021 Neurostimulation of spinal cord tissue LEONOR ORELLANA SOLAR DESIGNER/INSTALLER-PROGRESSIVE ASSEMBLER AND FITTER Start: 07-07-2021 Thoracic laminectomy TOSIN ORELLANA SOLAR DESIGNER/INSTALLER-PROGRESSIVE ASSEMBLER AND FITTER Comment on above: with spinal stimulat or implant Start: 07-12-2018 History of placement of stent for coronary artery disease History of coronary artery stent placement TRAVELING NURSE-C Leonor Orellana TRAVELING NURSE Work Phone: Start: 02-23-2017 Catheterization LEONOR ORELLANA SOLAR DESIGNER/INSTALLER-PROGRESSIVE ASSEMBLER AND FITTER Start: 09-02-2012 Lipid 1996 panel - S yolanda or Plasma Ame Carter SOLAR DESIGNER/INSTALLER.PROGRESSIVE ASSEMBLER AND FITTER Work Phone: Start: 09-11-2008 Arthroscopy of shoulder LEONOR FADUMOBEATRIS SOLAR DESIGNER/INSTALLER-PROGRESSIVE ASSEMBLER AND FITTER Start: 12-18-2004 Ureteroscopy LEONOR LIU SOLAR DESIGNER/INSTALLER-PROGRESSIVE ASSEMBLER AND FITTER Comment on above: stone removal and st ent placement Carotid endarterectomy KIMBERLEY AGEE FADUMOBEATRIS SOLAR DESIGNER/INSTALLER-PROGRESSIVE ASSEMBLER AND FITTER Cholecystectomy LEONOR GRADY SOLAR DESIGNER/INSTALLER-PROGRESSIVE ASSEMBLER AND FITTER History of carotid endarterectomy History of right-sided carotid endarterectomy Ame Machado SOLAR DESIGNER/INSTALLER.PROGRESSIVE ASSEMBLER AND FITTER Work Phone: History of carotid endarterectomy History of right-sided carotid endarterectomy Ame Machado SOLAR DESIGNER/INSTALLER.PROGRESSIVE ASSEMBLER AND FITTER Work Phone: History of carotid endarterectomy History of right-sided carotid endarterectomy Inocencia Aaron DO Work Phone: History of carotid endarterectomy H/O carotid endarterectomy Duke Carrion MD Work Phone: History of carotid endarterectomy History of right-sided carotid endarterectomy Us 1 History of carotid endarterectomy History of right-sided carotid endarterectomy Ame Machado SOLAR DESIGNER/INSTALLER.PROGRESSIVE ASSEMBLER AND FITTER Work Phone: History of carotid endarterectomy History of right-sided carotid endarterectomy Ame Machado SOLAR DESIGNER/INSTALLER.PROGRESSIVE ASSEMBLER AND FITTER Work Phone: History of coronary artery bypass grafting S/P CABG (coronary artery bypass graft) Bree Easton SOLAR DESIGNER/INSTALLER.PROGRESSIVE ASSEMBLER AND FITTER Work Phone: History of coronary artery bypass grafting S/P CABG x 3 LEONOR ORELLANA SOLAR DESIGNER/INSTALLER-PROGRESSIVE ASSEMBLER AND FITTER History of coronary artery bypass grafting S/P CABG x 3 Duke Carrion MD Work Phone: Hysterectomy LEONOR ORELLANA SOLAR DESIGNER/INSTALLER-PROGRESSIVE ASSEMBLER AND FITTER Specimen from breast obtained by biopsy (specimen) LEONOR ORELLANA SOLAR DESIGNER/INSTALLER-PROGRESSIVE ASSEMBLER AND FITTER Plan of Treatment Date Care Activity Detail Author Start: 07-07-2028 Lipid panel Lipid Screening [facility] Start: 07-17-2026 Diabetes Screening Diabetes Screenin [facility] Start: 07-07-2026 Diabetes Screening Diabetes Screenin g [facility] Start: 07-06-2026 Diabetes Screening Diabetes Screenin g [facility] Start: 06-09-2025 End: 09-28-2025 US Carotid arteries - bilateral US CAROTID BILATERAL Radiology Routine Carotid stenosis, asymptomatic, bilateral History of right-sided carotid endarterectomy Expected: 06/09/2025, Expires: 09/28/2025 [facility] Work Phone: Comment on above: Expected: 06/09/2025 , Expires: 09/28/2025 Start: 11-08-2024 BP Controlled (<130/80) BP Controlle d (<130/80) [facility] Start: 10-15-2024 Influenza vaccination Influenza Vacc ine (#1) [facility] Start: 08-29-2024 End: 08-29-2024 Patient encounter procedure 08/29/2024 1:00 PM EDT Office Visit [facility] [address] [place] [address] Ame Machado, MITCH.PROGRESSIVE ASSEMBLER AND FITTER 1 [facility] [address] [place], [place] [phone] Annual F/UP for Bilateral carotid artery stenosis, Hx of right-sided carotid endarterectomy with US CAROTID BILAT 08/16/2024 *CB* [facility] Comment on above: Annual F/UP for Bila teral carotid artery stenosis, Hx of right-sided carotid endarterectomy with US CAROTID BILAT 08/16/2024 *CB* Start: 08-16-2024 BP Controlled (<130/80) BP Controlle d (<130/80) [facility] Start: 08-16-2024 End: 09-15-2024 US Carotid arteries - bilateral [facility] Work Phone: Comment on above: Expected: 08/16/2024 , Expires: 09/15/2024 1 Occurrences starti ng 08/16/2024 until 08/16/2024 Start: 08-16-2024 End: 08-16-2024 Patient encounter procedure 08/16/2024 11:00 AM EDT Appointment [facility] [address] [place] [address] Bilateral carotid artery stenosis [I65.23] [facility] Comment on above: Bilateral carotid ar maritza stenosis [I65.23] Start: 08-11-2024 BP Controlled (<130/80) BP Controlle d (<130/80) [facility] Start: 07-20-2024 BP Controlled (<130/80) BP Controlle d (<130/80) [facility] Start: 07-07-2024 Hepatitis B surface antibody level LDL Cholesterol [facility] Start: 05-28-2024 End: 05-28-2024 Patient encounter procedure [facility] [place] Comment on above: 6mo follow up 6mo follow up EKG - hlk Start: 02-15-2024 Advance Directive Discussion Advance Directive Discussion [facility] Start: 10-26-2023 End: 10-26-2023 Patient encounter procedure 10/26/2023 11:20 AM EDT Office Visit [facility] Cardiology [address] [phone] Duke Carrion MD [address] [place] [address] [phone] Ref CTVS s/p CABG/MAZE/LAAC. Needs EPS 3 months. On amio and eliquisEKG/eo [facility] [place] Comment on above: Ref CTVS s/p CABG/MA ZE/LAAC. Needs EPS 3 months. On amio and eliquisEKG/eo Start: 10-16-2023 Covid-19 Vaccine ( season) Covid-19 Vaccine ( season) [facility] Start: 10-16-2023 Influenza vaccination [facility] Start: 08-29-2023 End: 08-29-2023 Patient encounter procedure [facility] Comment on above: [id number]- DOBBINS: s/p CABGx3, would assessment, BLE edema, med education/management, repsiratory assessment/SOB, shoulder blade pain Start: 08-22-2023 End: 08-22-2023 Home visit [facility] Comment on above: [id number]- DOBBINS: s/p CABGx3, would assessment, BLE edema, med education/management, repsiratory assessment/SOB, shoulder blade pain Start: 08-19-2023 BP Controlled (<130/80) BP Controlle d (<130/80) [facility] Start: 08-17-2023 End: 08-17-2023 Patient encounter procedure 08/17/2023 2:15 PM EDT Office Visit [facility] 1 [place], [place] [phone] Inocencia Aaron DO [address] [place] [address] Annual F/up - Internal carotid artery stenosis, bilateral * US DUP 06/13/23 at [place], report & films in Get images. 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 Start: 08-16-2023 End: 08-16-2023 Home visit 08/16/2023 9:00 AM EDT Home Care Visit [facility] [address] [place] [address] Ileana Bean, PT [address] [place] [address] 270 [facility] Comment on above: 270 Start: 08-15-2023 End: 08-15-2023 Home visit [facility] Comment on above: [id number]- DOBBINS: s/p CABGx3, would assessment, BLE edema, med education/management, repsiratory assessment/SOB, shoulder blade pain Start: 08-12-2023 End: 08-12-2023 Patient encounter procedure 08/12/2023 2:00 PM EDT Office Visit [facility] 1 [place], [place] [phone] Monica Miller, SOLAR DESIGNER/INSTALLER.PROGRESSIVE ASSEMBLER AND FITTER 1 [facility] [address] [place] [address] 4-6 PO F/up - S/P CABG [facility] Comment on above: 4-6 PO F/up - S/P CA BG Start: 08-09-2023 End: 08-09-2023 Home visit 08/09/2023 9:00 AM EDT Home Care Visit [facility] [address] [place] [address] Anabela Ventura, JEAN MARIE [address] [place] [address] 270 [facility] Comment on above: 270 Start: 08-08-2023 End: 08-08-2023 Home visit [facility] Comment on above: [id number]- DOBBINS: s/p CABGx3, would assessment, BLE edema, med education/management, repsiratory assessment/SOB, shoulder blade pain Start: 08-04-2023 End: 08-04-2023 Home visit [facility] Comment on above: [id number]- DOBBINS: s/p CABGx3, would assessment, BLE edema, med education/management, repsiratory assessment/SOB, shoulder blade pain 270 Start: 08-02-2023 End: 08-02-2023 Home visit [facility] Comment on above: [phone] [id number]- DOBBINS: s/p CABGx3, would assessment, BLE edema, med education/management, repsiratory assessment/SOB, shoulder blade pain Start: 08-01-2023 End: 08-01-2023 Home visit [facility] Comment on above: [id number]- DOBBINS: s/p CABGx3, would assessment, BLE edema, med education/management, repsiratory assessment/SOB, shoulder blade pain Start: 07-29-2023 End: 07-29-2023 Home visit 07/29/2023 10:00 AM EDT Home Care Visit [facility] [address] [place] [address] Maggy Majano, KAYLI [address] [place] [id number]- DOBBINS: s/p CABGx3, would assessment, BLE edema, med education/management, repsiratory assessment/SOB, shoulder blade pain [facility] Comment on above: [id number]- DOBBINS: s/p CABGx3, would assessment, BLE edema, med education/management, repsiratory assessment/SOB, shoulder blade pain Start: 07-28-2023 End: 07-28-2023 Home visit [facility] Comment on above: [id number]- DOBBINS: s/p CABGx3, would assessment, BLE edema, med education/management, repsiratory assessment/SOB, shoulder blade pain 270 CABG Start: 07-26-2023 End: 07-26-2023 Home visit [facility] Comment on above: 270 CABG 65625- DOBBINS: NEDS AM due to an appt. - s/p CABGx3, would assessment, BLE edema, med education/management, repsiratory assessment/SOB, shoulder blade pain [id number] OTE 07/19-07/23 - MAGO D/S Call made 07/21 left message to confirm for Saturday 07/22 @[facility] 07/23 Start: 07-26-2023 End: 07-26-2023 Patient encounter procedure 07/26/2023 8:00 AM EDT Appointment [facility] [address] [place] [address] Johnny Polo, KAYLI [address] [place] [address] [facility] Start: 07-25-2023 End: 07-25-2023 Patient encounter procedure [facility] Comment on above: *No CXR* Start: 07-25-2023 End: 07-25-2023 Home visit [facility] Comment on above: [id number]- DOBBINS: s/p CABGx3, would assessment, BLE edema, med education/management, repsiratory assessment/SOB, shoulder blade pain 44208- DOBBINS: NEDS AM due to an appt. - s/p CABGx3, would assessment, BLE edema, med education/management, repsiratory assessment/SOB, shoulder blade pain [id number] HARD TILE SETTER APPRENTICE 07/21-07/25 [id number] OTE 6/5-07/23 - MAGO D/S Call made 07/21 left message to confirm for Saturday 07/22 270 CABG Start: 07-23-2023 End: 07-23-2023 Home visit 07/23/2023 6:30 AM EDT Home Care Visit [facility] [address] [place] [id number] OTE /-07/23 - MAGO D/S Call made 07/21 left message to confirm for Saturday 07/22 [facility] Comment on above: [id number] OTE 6/5-07/23 - MAGO D/S Call made 07/21 left message to confirm for Saturday 07/22 Start: 07-22-2023 End: 07-22-2023 Home visit [facility] Comment on above: [id number] OTE 6/-07/23 - MAGO [id number] PTE 6/-07/23 - DIOGENES RIVERA Start: 07-21-2023 End: 07-21-2023 Home visit [facility] Comment on above: [id number] PTE 6/6-07/24 [id number] OTE 07/20-07/24 [id number] OTE 6/-07/23 - MAGO [id number] PTE 07/19-07/23 - DIOGENES RIVERA 65624- DOBBINS: s/p CABGx3, would assessment, BLE edema, med education/management, repsiratory assessment/SOB, shoulder blade pain Start: 07-20-2023 End: 07-20-2023 Patient encounter procedure 07/20/2023 4:00 AM EDT Appointment [facility] [address] [place] [id number] CM [place] [id number] 07/17 Encounter for surgical aftercare following surgery on the circulatory system. [facility] Comment on above: [id number] CM [place] [id number] 04 07/17 Encounter for surgical aftercare following surgery on the circulatory system. Start: 07-19-2023 End: 07-19-2023 Patient encounter procedure 07/19/2023 2:20 PM EDT Office Visit [facility] Cardiology [place] [address] 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) 07/12/2023 9:00 AM EDT [facility] Start: 07-12-2023 End: 07-12-2023 Evaluation and management of inpatient 07/12/2023 9:00 AM EDT - 07/12/2023 5:10 PM EDT Surgery [facility] [address] [place] [address] Jan Aparicio MD [address] [facility] [place] [address] BYPASS GRAFT ARTERY CORONARY ON-PUMP THREE CORONARY VENOUS GRAFTS [facility] Comment on above: BYPASS GRAFT ARTERY CORONARY ON-PUMP THREE CORONARY VENOUS GRAFTS Start: 07-12-2023 End: 07-12-2023 Maze procedure for atrial fibrillation MODIFIED MAZE NSTEMI (non-ST elevated myocardial infarction) (HCC) Mitral valve disease 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) 07/12/2023 9:00 AM EDT [facility] Start: 02-14-2023 Advance Directive Discussion Advance Directive Discussion [facility] Start: 02-14-2023 Behavioral Health Screening Behavioral Health Screening [facility] Start: 10-15-2022 Covid-19 Vaccine ( season) Covid-19 Vaccine ( season) [facility] Start: 10-15-2022 Influenza vaccination INFLUENZA (#1) [facility] Start: 07-31-2022 End: 08-30-2022 Duplex scan extracranial art compl bi study US CAROTID BILAT Radiology Routine Carotid stenosis, asymptomatic, bilateral Expected: 07/31/2022, Expires: 08/30/2022 [facility] Work Phone: Comment on above: Expected: 07/31/2022 , Expires: 08/30/2022 Start: 02-14-2022 ADVANCE DIRECTIVE DISCUSSION ADVANCE DIRECTIVE DISCUSSION [facility] Start: 02-14-2022 DEPRESSION ASSESSMENT DEPRESSION ASS ESSMENT [facility] Start: 11-24-2021 COVID-19 VACCINE (5 - Booster for Moderna series) COVID-19 VACCINE (5 - Booster for Moderna series) [facility] Start: 11-24-2021 COVID-19 VACCINE (5 - Moderna series) COVID-19 VACCINE (5 - Moderna series) [facility] Start: 10-15-2021 Influenza vaccination INFLUENZA (Sea son Ended) [facility] Start: 05-21-2021 COVID-19 VACCINE (4 - Booster for Moderna series) COVID-19 VACCINE (4 - Booster for Moderna series) [facility] Start: 02-14-2021 ADVANCE DIRECTIVE DISCUSSION ADVANCE DIRECTIVE DISCUSSION [facility] Start: 10-15-2020 Influenza vaccination INFLUENZA (#1) [facility] Start: 10-12-2020 COVID-19 VACCINE (3 - Booster for Moderna series) COVID-19 VACCINE (3 - Booster for Moderna series) [facility] Start: 10-16-2019 Influenza vaccination INFLUENZA (#1) [facility] Start: 09-02-2017 Lipid panel Lipid Screening [facility] Start: 09-02-2017 LIPID SCREEN LIPID SCREEN [facility] Start: 12-13-2015 ADVANCE DIRECTIVE DISCUSSION ADVANCE DIRECTIVE DISCUSSION [facility] Start: 12-13-2015 BONE DENSITY BONE DENSITY [facility] Start: 12-13-2015 PNEUMOCOCCAL: 65+ (1 - PCV) PNEUMOCOCCAL: 65+ (1 - PCV) [facility] Start: 12-13-2015 PNEUMOVAX AGE 65 AND OVER WITH 5YR LOOKBACK (#1) PNEUMOVAX AGE 65 AND OVER WITH 5YR LOOKBACK (#1) [facility] Start: 12-13-2015 Screening for osteoporosis Bone Density Screening [facility] Start: 11-15-2015 Medicare Annual Well ness Visit Medicare Annual Wellness Visit [facility] Start: 09-07-2015 DIABETES SCREEN DIABETES SCREEN [facility] Start: 09-07-2015 Diabetes Screening Diabetes Screenin g [facility] Start: 09-02-2013 Hepatitis B surface antibody level LDL Cholesterol [facility] Start: 2010 RSV Vaccine (1 - 1-d ose 60+ series) RSV Vaccine (1 - 1-dose 60+ series) [facility] Start: 2010 RSV Vaccine (1 - Ris k 60-74 years 1-dose series) RSV Vaccine (1 - Risk 60-74 years 1-dose series) [facility] Start: 04-15-2006 Urine microalbumin profile DTaP,Tdap,Td Vaccine (1 - Tdap) [facility] Start: 2000 Screening for malign ant neoplasm of colon [facility] Start: 2000 SHINGRIX VACCINE (1 of 2) SHINGRIX VACCINE (1 of 2) [facility] Start: 2000 Tuberculosis screening COLOREC IVAN CANCER SCREENING,SEE MODIFIER [facility] Start: 12-13-1995 COLOGUARD (FIT-DNA) COLOGUARD (FIT-D NA) [facility] Start: 12-13-1995 Colonoscopy COLONOSCOPY [facility] Start: 12-13-1995 COLORECTAL CANCER SCREENING COLORECTAL CANCER SCREENING [facility] Start: 12-13-[address] COLONOGRAPHY [facility] Start: 12-13-1995 FECAL OCCULT BLOOD FECAL OCCULT BLOO D [facility] Start: 12-13-1995 Screening for malign ant neoplasm of colon [facility] Start: 12-13-1995 SIGMOIDOSCOPY SIGMOIDOSCOPY [facility] Start: 1990 Mammography MAMMOGRAM [facility] Start: 1990 Screening for malign ant neoplasm of breast Mammogram Screening [facility] Start: 1969 Urine microalbumin profile DTAP,TDAP,TD (1 - Tdap) [facility] Start: 1968 Annual PCP Team Nursing Clerk vineet Disease Visit Annual PCP Team Chronic Disease Visit [facility] Start: 1968 Anxiety Screening Anxiety Screening [facility] Start: 1968 BP Controlled (<130/80) BP Controlle d (<130/80) [facility] Start: 1968 Depression Screening Depression Scre ening [facility] Start: 1962 Adult depression screening assessment DEPRESSION SCREENING [facility] Cardiac event recording [facility] CARDIAC RE[place] BIC Routine S/P CABG (coronary artery bypass graft) Ordered: 08/12/2023 [facility] Comment on above: Ordered: 08/12/2023 CT Chest [facility] End: 11-08-2020 Duplex scan extracranial art compl bi study US CAROTID BILAT Radiology Routine Asymptomatic bilateral carotid artery stenosis 1 Occurrences starting 10/10/2019 until 11/08/2020 [facility] Comment on above: 1 Occurrences starti ng 10/10/2019 until 11/08/2020 End: 10-10-2021 Duplex scan extracranial art compl bi study US CAROTID BILAT Radiology Routine Asymptomatic bilateral carotid artery stenosis 1 Occurrences starting 09/10/2020 until 10/10/2021 [facility] Comment on above: 1 Occurrences starti ng 09/10/2020 until 10/10/2021 Duplex scan extracra nial art compl bi study US CAROTID BILAT Radiology Routine Asymptomatic bilateral carotid artery stenosis 07/21/2021 11:37 AM EDT [facility] Work Phone: ECG B/O W INTERP (ME D OFFICE) ECG B/O W INTERP (MED OFFICE) ECG Routine Paroxysmal atrial fibrillation (HCC) Ordered: 11/09/2023 [facility] Work Phone: Comment on above: Ordered: 11/09/2023 End: 08-11-2024 EXERCISE STRESS ECG (WITHOUT IMAGING) EXERCISE STRESS ECG (WITHOUT IMAGING) Cardiology Routine S/P CABG (coronary artery bypass graft) 1 Occurrences starting 08/12/2023 until 08/11/2024 [facility] Work Phone: Comment on above: 1 Occurrences starti ng 08/12/2023 until 08/11/2024 End: 11-08-2024 EXTENDED WEAR AIRWORTHINESS INSPECTOR PATCH EXTENDED WEAR AIRWORTHINESS INSPECTOR PATCH ECG Routine Paroxysmal atrial fibrillation (HCC) 1 Occurrences starting 11/09/2023 until 11/08/2024 [facility] Comment on above: 1 Occurrences starti ng 11/09/2023 until 11/08/2024 End: 11-25-2023 EXTENDED WEAR AIRWORTHINESS INSPECTOR PATCH EXTENDED WEAR AIRWORTHINESS INSPECTOR PATCH ECG Routine Paroxysmal atrial fibrillation (HCC) 1 Occurrences starting 11/25/2023 until 11/25/2023 [facility] Work Phone: Comment on above: 1 Occurrences starti ng 11/25/2023 until 11/25/2023 US Carotid arteries - bilateral US CAROTID BILATERAL Radiology Routine Internal carotid artery stenosis, bilateral History of right-sided carotid endarterectomy Ordered: 06/20/2023 [facility] Work Phone: Comment on above: Ordered: 06/20/2023 XR Chest PA and Lateral XR CHEST 2V FRONTAL/LAT Radiology Routine S/P CABG (coronary artery bypass graft) 08/12/2023 3:12 PM EDT [facility] Work Phone: [facility] Immunizations Immunization Date Immunization Notes Care Provider Zehra juan 09-29-2021 SARS-CoV-2 (COVID-19 ) mRNA-1273 vaccine LEONOR ORELLANA SOLAR DESIGNER/INSTALLER-PROGRESSIVE ASSEMBLER AND FITTER [facility] 01-20-2021 SARS-CoV-2 (COVID-19 ) mRNA-1273 vaccine LEONOR ORELLANA SOLAR DESIGNER/INSTALLER-PROGRESSIVE ASSEMBLER AND FITTER [facility] 05-12-2020 COVID-19, mRNA, LNP- S, PF, 100 mcg/ 0.5 mL dose; Translations: [Moderna COVID-19 Vaccine] LEONOR ORELLANA SOLAR DESIGNER/INSTALLER-PROGRESSIVE ASSEMBLER AND FITTER [facility] 04-14-2020 COVID-19, mRNA, LNP- S, PF, 100 mcg/ 0.5 mL dose; Translations: [Moderna COVID-19 Vaccine] LEONOR ORELLANA SOLAR DESIGNER/INSTALLER-PROGRESSIVE ASSEMBLER AND FITTER [facility] Comment on above: Result Comment: admi nistered by Javier Simon, SN Julienne 06-26-2018 pneumococcal polysaccharide vaccine, 23 valent LEONOR ORELLANA SOLAR DESIGNER/INSTALLER-PROGRESSIVE ASSEMBLER AND FITTER [facility] 10-04-2016 pneumococcal conjuga te vaccine, 13 valent LEONOR ORELLANA SOLAR DESIGNER/INSTALLER-PROGRESSIVE ASSEMBLER AND FITTER [facility] 11-15-2015 pneumococcal conjuga te vaccine, 13 valent TRAVELING NURSE-C Leonor Orellana TRAVELING NURSE Work Phone: [facility] 04-14-2006 tetanus and diphther ia toxoids, adsorbed, preservative free, for adult use (5 Lf of tetanus toxoid and 2 Lf of diphtheria toxoid) LEONOR ORELLANA SOLAR DESIGNER/INSTALLER-PROGRESSIVE ASSEMBLER AND FITTER [facility] Payers Date Payer Category Payer Self-pay [id number] 2018 Unknown [id number] 2018 Unknown MMO MMO SUPERMED PLUS [id number] 2018-Present PPO [id number] 2018 Private Health Insurance [id number] 2018 Unknown [id number] [id number] .[id number] 2015 Medicare [id number] .[id number] 2015 Medicare [id number]. [id number] .[id number] 2015 Medicare [id number] 2005 Unknown [id number] 1950 Unknown [id number] 2.16.840.1.915761.3.579.2.6 1950 Unknown [id number] 2.16.840.1.574261.3.579.2.6 27 1950 Unknown [id number] 2.16.840.1.117900.3.579.2.6 1950 Unknown [id number] 2.16.840.1.644933.3.579.2.6 27 1950 Unknown [id number] 2.16.840.1.742125.3.579.2.6 1950 Unknown [id number] 2.16.840.1.435024.3.579.2.6 27 1950 Unknown [id number] 2.16.840.1.353412.3.579.2.6 1950 Unknown [id number] 2.16.840.1.378221.3.579.2.6 27 1950 Unknown [id number] 2.16.840.1.589650.3.579.2.6 1950 Unknown [id number] 2.16.840.1.340611.3.579.2.6 27 1950 Unknown [id number] 2.16.840.1.848173.3.579.2.6 27 Unknown [id number] 2.16.840.1.085171.3.579.2.4 62 Unknown [id number] 2.16.840.1.858289.3.579.2.4 62 Unknown [id number] 2.16.840.1.864310.3.579.2.4 62 Unknown [id number] 2.16.840.1.405705.3.579.2.4 62 Unknown [id number] 2.16.840.1.225897.3.579.2.4 62 Unknown [id number] 2.16.840.1.122252.3.579.2.4 62 Unknown [id number] 2.16.840.1.911034.3.579.2.4 62 Unknown [id number] 2.16.840.1.740311.3.579.2.4 62 Social History Date Type Detail Facility Start: 07-23-2019 End: 08-27-2019 Tobacco smoking status NHIS Former smoker [facility] End: 08-26-2017 History of tobacco use Current smoker [facility] End: 08-26-2017 History of tobacco use Cigarette Smoker [facility] Start: 08-27-2019 End: 11-09-2023 Tobacco use and exposure [facility] Start: 08-27-2019 End: 08-29-2024 Alcohol intake Ex-drinker (finding) [facility] Start: 1950 Sex Assigned At Not on file [facility] Start: 07-11-2021 End: 07-31-2021 Exposure to SARS-CoV-2 (event) Not sure [facility] Start: 1950 Sex Assigned At Female [facility] Start: 04-27-2022 End: 05-27-2023 Tobacco smoking status WIIS Unknown if ever smoked [facility] Start: 08-02-2022 End: 08-18-2022 History of Social function [facility] Start: 08-02-2022 End: 08-18-2022 Tobacco use panel [facility] National Score (1-10 0), lower number is lower risk 56 [facility] Sexual Orientation [place] [facility] Start: 01-09-2019 Sex Female (finding) [facility] Medical Equipment Procedure Code Equipment Code Equipment Origin al Text Equipment Identifier Dates Alo-Tu-A-Kind Implant - [id number] Start: 07-12-2023 Rdb-Ph-F-Kind Implant - [id number] Start: 07-12-2023 Goals Date Patient Goal Desired Activity /State Personal health goal Functional Status Date Assessment Result Facility 07-18-2023 Are you deaf, or do you have serious difficulty hearing No 07/18/2023 6:05 PM Deonte Singh, KAYLI No [facility] 07-18-2023 Are you blind, or do you have serious difficulty seeing, even when wearing glasses No 07/18/2023 6:05 PM Deonte Singh, KAYLI No [facility] 07-18-2023 Do you have serious difficulty walking or climbing stairs No 07/18/2023 6:05 PM Deonte Singh RN No [facility] 07-18-2023 Do you have difficul ty dressing or bathing No 07/18/2023 6:05 PM Deonte Singh RN [facility] 07-18-2023 Because of a physica l, mental, or emotional condition, do you have difficulty doing errands alone such as visiting a physician's office or shopping No 07/18/2023 6:05 PM Deonte Singh RN [facility] 08-24-2021 Functional Status OBJECTIVE BP: 128/69 Gait: amb with no AD and antalgic gait with visible limp Transfers: WNL Sensation: no abnomralities or asymmetries Reflexes: NT Edema: none AROM: WNL Palpation: pain along R side of IT band HAWK: neg bilat FADDIR: neg bilat [facility] 06-23-2021 Functional Status [facility] Mental Status Date Assessment Result Facility 07-18-2023 Because of a physica l, mental, or emotional condition, do you have serious difficulty concentrating, remembering, or making decisions No 07/18/2023 6:05 PM Deonte Singh, KAYLI No [facility] Clinical Notes 07-12-2018 to 11-26-2024 Note Date & Type Note Facility 11-26-2024 Note Exam Date Time Procedure Performing Provider Status 11/26/24 2:19 PM BD Bone Density DEXA Axial Skeleton FELICIA KNOTT DO; Auth (Verified) [id number] ORIGINAL EXAMINATION: BONE DENSITOMETRY 11/26/2024 2:19 pm TECHNIQUE: A bone density dual x-ray absorptiometry (DEXA) scan was performed of the axial (e.g. hips, spine) and/or appendicular (e.g. radius) skeleton as appropriate. COMPARISON: 09/14/2022 HISTORY: ORDERING SYSTEM PROVIDED HISTORY: Reason for Exam: postmenopausal FINDINGS: T Score Left Femoral Neck: -2.0 Left Femoral Neck: 0.629 (g/cm2) T Score Left Hip: -1.4 Left Hip: 0.766 (g/cm2) T Score Left Forearm: -3.3 Left Forearm: 0.492 (g/cm2) BMD Change from previous Hip: -5.3% BMD change from previous forearm:-4.9% IMPRESSION: Osteoporosis by WHO criteria. World Health Organization criteria: (Comparing with young normal sex matched population) - Normal: T-score at or above -1 SD (standard deviation) - Osteopenia: T-score between -1 and -2.5 SD - Osteoporosis: T-score at or below -2.5 SD The NOF recommends that FDA-approved medical therapies be considered in post-menopausal women and men age >/= 50 years with a: * Hip or vertebral fracture, or * T-score of /= 20% for major osteoporotic fractures or * >/= 3% for hip fractures All treatment decisions require clinical judgement and consideration of individual patient factors, including patient preferences, comorbidities, previous drug use, risk factors not captured in the FRAX registered model (e.g., frailty, falls, vitamin D deficiency, increased bone turnover, interval significant decline in bone density) and possible under- or over-estimation of fracture risk by FRAX. Interpreted by: Felicia Knott DO Preliminary Report By: Felicia Knott DO Electronically signed By Felicia Knott DO Dictated Date: 11/26/2024 3:28:44 PM Prelim Date: 11/26/2024 3:29:24 PM Sign Date: 11/26/2024 3:29:24 PM Ordering Provider: LEONOR ORELLANA RP [facility]07-23-2025 NoteHNO ID: [id number] Author: AME MACHADO APRN.WILBUR Service: ? Author Type: Nurse Practitioner Type: Progress Notes Filed: 09/05/2024 12:44 Note Text: CHIEF COMPLAINT: Follow-up Carotid Stenosis HISTORY OF PRESENT ILLNESS: Ms. Alis is a 73 year old female who presents today for a vascular surgery follow-up visit for carotid stenosis. Patient previously followed with Dr. Tsang (R CEA 2012), and established care with Dr. Aaron following his long term. Patient denies symptoms of TIA, stroke, or amaurosis. + NSTEMI and underwent open heart surgery CABG with Dr. Aparicio on 07/12/23. +Plavix AND statin. On eliquis for a-fib. Carotid ultrasound done 08/16/24 showed R ICA <30% (PSV 92/EDV 19) and L ICA with 30-49% stenosis (PSV 137/EDV 29) PRIOR VASCULAR INTERVENTIONS: R CEA (Dr. 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 CAD (coronary artery disease) Carotid bruit left Carotid stenosis, bilateral Depressive disorder Dizziness and giddiness GERD (gastroesophageal reflux disease) HTN (hypertension) Hyperlipidemia Kidney stones ERICKA (obstructive sleep apnea) PAF (paroxysmal atrial fibrillation) (HCC) PONV (postoperative nausea and vomiting) TIA (transient ischemic attack) PAST SURGICAL HISTORY Procedure Laterality Date ARTHROSCOPY, SHOULDER, SURGI 09/11/2018 BREAST BIOPSY CABG (3) VEIN GRAFTS AND ARTERIAL GRAFT(S) 07/12/2023 CABG x 3; (SUAREZ to LAD, SVG to OM and ramus) on 07/12/23 w/ CARDIAC CATH 07/12/2018 [facility] with stenting CHOLECYSTECTOMY HYSTERECTOMY URETEROSCOPY W/ BIOPSY 12/18/2004 SOCIAL HISTORY Social History Tobacco Use Smoking status: Former Current packs/day: 0.00 Types: Cigarettes Quit date: 08/26/2017 Years since quittin.0 Smokeless tobacco: Never Vaping Use Vaping status: Never Used Substance Use Topics Alcohol use: Not Currently Drug use: Never MEDICATIONS: metoprolol tartrate, short acting, (LOPRESSOR) 50 mg tablet Take 1 tablet by mouth two times a day. Please hold for SBP < 100 or HR < 60 busPIRone (BUSPAR) 5 mg tablet Take 5 mg by mouth three times a day. magnesium chloride 64 mg magnesium tab Take 2 tablets by mouth once daily. acetaminophen (TYLENOL) 500 mg tablet Take 2 tablets by mouth every 6 hours as needed for pain. pantoprazole DR (PROTONIX) 40 mg tablet Take 1 tablet by mouth two times a day. furosemide (LASIX) 40 mg tablet Take 1 tablet by mouth two times a day for 4 days, THEN 1 tablet once daily. (Patient taking differently: Taking 80 mg once daily) ascorbic acid, vitamin C, (VITAMIN C) 500 mg tablet Take 1 tablet by mouth once daily. clopidogrel (PLAVIX) 75 mg tablet Take 1 tablet by mouth once daily. apixaban (ELIQUIS) 5 mg tab(s) Take 5 mg by mouth two times a day. DULoxetine (CYMBALTA) 20 mg capsule Take 20 mg by mouth once daily. Patient reports taking duloxetine HCL DR (Cymbalta) 1 (one) capsule by mouth, daily. atorvastatin (LIPITOR) 80 mg tablet Take 80 mg by mouth once daily. potassium chloride (K-TAB) 10 mEq tablet Take 20 mEq by mouth two times a day. ALLERGIES: ALLERGIES Allergen Reactions Doxycycline Unknown Metoprolol Unknown Oxycodone Unknown VITAL SIGNS: BP 110/60 (BP Site: Left Arm, BP Position: Sitting, BP Cuff Size: Large Adult) Pulse (!) 53 Ht 5' (1.524 m) Wt 174 lb (78.9 kg) SpO2 98% BMI 33.98 kg/m? PHYSICAL EXAM: General: Alert and oriented, No acute distress HEENT: NC/AT, EOMI, Hearing is adequate, Neck is supple with well healed R neck scar. Cardiovascular: Pulse regular. Lungs: Normal respiratory effort Extremities: No edema, no chronic skin changes, no ulceration Neurological: Normal cognition and motor skills. No weakness or sensory deficit. Vascular: B radial palpable, pedal pulses palp Diagnostic tests reviewed for today's visit: Carotid ultrasound 08/16/24 Carotid ultrasound 06/13/23 Carotid ultrasound 08/02/22 Carotid ultrasound 07/21/21 Carotid ultrasound 09/01/20 IMPRESSION: Ms. Snell is a 73 year old female with asymptomatic L ICA stenosis 30-49% by ultrasound and widely patent right caroid patch repair with no evidence of restenosis. PLAN and RECOMMENDATIONS: - reviewed results of most recent ultrasound with patient and daughter - plan for best medical therapy with current regiment of plavix AND statin - eliquis for afib - repeat carotid ultrasound in 1 year FOLLOW-UP: - 1 year after testing - call with any questions or concerns The patient is currently taking a statin: Yes The patient is currently taking aspirin: Plavix AND Eliquis I spent 30 minutes in the visit, with more than 50% of the total ozzg-oh-hwyn time of the visit in counseling / coordination of care. Ame Machado APRN.[facility]07-23-2025 History of Present illness Narrative* Ame Machado APRN.[facility] - 09/05/2024 9:34 AM EDT CHIEF COMPLAINT: Follow-up Carotid Stenosis HISTORY OF PRESENT ILLNESS: Ms. Snell is a 73 year old female who presents today for a vascular surgery follow-up visit for carotid stenosis. Patient previously followed with Dr. Tsang (R CEA 2012), and established care with Dr. Aaron following his long term. Patient denies symptoms of TIA, stroke, or amaurosis. + NSTEMI and underwent open heart surgery CABG with Dr. Aparicio on 07/12/23. +Plavix & statin. On eliquis for a-fib. Carotid ultrasound done 08/16/24 showed R ICA <30% (PSV 92/EDV 19) and L ICA with 30-49% stenosis (PSV 137/EDV 29) PRIOR VASCULAR INTERVENTIONS: R CEA (Dr. 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 CAD (coronary artery disease) Carotid bruit left Carotid stenosis, bilateral Depressive disorder Dizziness and giddiness GERD (gastroesophageal reflux disease) HTN (hypertension) Hyperlipidemia Kidney stones ERICKA (obstructive sleep apnea) PAF (paroxysmal atrial fibrillation) (HCC) PONV (postoperative nausea and vomiting) TIA (transient ischemic attack) PAST SURGICAL HISTORY Procedure Laterality Date ARTHROSCOPY, SHOULDER, SURGI 09/11/2018 BREAST BIOPSY CABG (3) VEIN GRAFTS & ARTERIAL GRAFT(S) 07/12/2023 CABG x 3; (SUARZE to LAD, SVG to OM and ramus) on 07/12/23 w/ CARDIAC CATH 07/12/2018 [facility] with stenting CHOLECYSTECTOMY HYSTERECTOMY URETEROSCOPY W/ BIOPSY 12/18/2004 SOCIAL HISTORY Social History Tobacco Use Smoking status: Former Current packs/day: 0.00 Types: Cigarettes Quit date: 08/26/2017 Years since quittin.0 Smokeless tobacco: Never Vaping Use Vaping status: Never Used Substance Use Topics Alcohol use: Not Currently Drug use: Never MEDICATIONS: metoprolol tartrate, short acting, (LOPRESSOR) 50 mg tablet Take 1 tablet by mouth two times a day.Please hold for SBP < 100 or HR < 60 busPIRone (BUSPAR) 5 mg tablet Take 5 mg by mouth three times a day. magnesium chloride 64 mg magnesium tab Take 2 tablets by mouth once daily. acetaminophen (TYLENOL) 500 mg tablet Take 2 tablets by mouth every 6 hours as needed for pain. pantoprazole DR (PROTONIX) 40 mg tablet Take 1 tablet by mouth two times a day. furosemide (LASIX) 40 mg tablet Take 1 tablet by mouth two times a day for 4 days, THEN 1 tablet once daily. (Patient taking differently: Taking 80 mg once daily) ascorbic acid, vitamin C, (VITAMIN C) 500 mg tablet Take 1 tablet by mouth once daily. clopidogrel (PLAVIX) 75 mg tablet Take 1 tablet by mouth once daily. apixaban (ELIQUIS) 5 mg tab(s) Take 5 mg by mouth two times a day. DULoxetine (CYMBALTA) 20 mg capsule Take 20 mg by mouth once daily. Patient reports taking duloxetine HCL DR (Cymbalta) 1 (one) capsule by mouth, daily. atorvastatin (LIPITOR) 80 mg tablet Take 80 mg by mouth once daily. potassium chloride (K-TAB) 10 mEq tablet Take 20 mEq by mouth two times a day. ALLERGIES: ALLERGIES Allergen Reactions Doxycycline Unknown Metoprolol Unknown Oxycodone Unknown VITAL SIGNS: BP 110/60 (BP Site: Left Arm, BP Position: Sitting, BP Cuff Size: Large Adult) Pulse (!) 53 Ht 5' (1.524 m) Wt 174 lb (78.9 kg) SpO2 98% BMI 33.98 kg/m PHYSICAL EXAM: General: Alert and oriented, No acute distress HEENT: NC/AT, EOMI, Hearing is adequate, Neck is supple with well healed R neck scar. Cardiovascular: Pulse regular. Lungs: Normal respiratory effort Extremities: No edema, no chronic skin changes, no ulceration Neurological: Normal cognition and motor skills. No weakness or sensory deficit. Vascular: B radial palpable, pedal pulses palp Diagnostic tests reviewed for today's visit: Carotid ultrasound 08/16/24 Carotid ultrasound 06/13/23 Carotid ultrasound 08/02/22 Carotid ultrasound 07/21/21 Carotid ultrasound 09/01/20 IMPRESSION: Ms. Snell is a 73 year old female with asymptomatic L ICA stenosis 30-49% by ultrasound and widely patent right caroid patch repair with no evidence of restenosis. PLAN and RECOMMENDATIONS: - reviewed results of most recent ultrasound with patient and daughter - plan for best medical therapy with current regiment of plavix & statin - eliquis for afib - repeat carotid ultrasound in 1 year FOLLOW-UP: - 1 year after testing - call with any questions or concerns The patient is currently taking a statin: Yes The patient is currently taking aspirin: Plavix & Eliquis I spent 30 minutes in the visit, with more than 50% of the total [id number]-tm-[id number] time of the visit in counseling / coordination of care. Ame aMchado APRN.[facility] documented [facility]07-03-[facility]25 History of Present illness Narrative* Han Perez RT(R) - 08/16/2024 11:00 AM EDT Radiology Service Progress Note PATIENT NAME: Domi Snell DATE OF SERVICE: August 16, 2024 TIME: 11:06 AM PATIENT IDENTITY VERIFICATION COMPLETED USING TWO (2) IDENTIFIERS: Name and Date of confirmedby patient verbally. FALL SCREENING: Has the patient had 2 falls in the last year or 1 fall with injury or currently using an Ambulatory Assistive Device (Walker, Cane, Wheelchair, Crutches, etc.)? No PATIENT GENDER DATA: Assigned female at . status: : No status:NO. PATIENT RELEVANT IMPLANT DATA REVIEWED: Not Applicable PATIENT PRESENTS WITH AN IMPLANTABLE OR ATTACHED MODEL ENGINE MECHANIC: No RADIOLOGY DEPARTMENT: Ultrasound PERIPHERAL IV DATA: Not applicable SIGNED BY: MAURO Baca) August 16, 2024 11:06 AM documented in this encounterProvidence Hospital07-03-2025 NoteHNO ID: [id number] Author: HAN PEREZ RT(R) Service: Radiology Author Type: Technologist Type: Progress Notes Filed: 08/16/2024 11:07 Note Text: Radiology Service Progress Note PATIENT NAME: Domi Snell DATE OF SERVICE: August 16, 2024 TIME: 11:06 AM PATIENT IDENTITY VERIFICATION COMPLETED USING TWO (2) IDENTIFIERS: Name and Date of confirmed by patient verbally. FALL SCREENING: Has the patient had 2 falls in the last year or 1 fall with injury or currently using an Ambulatory Assistive Device (Walker, Cane, Wheelchair, Crutches, etc.)? No PATIENT GENDER DATA: Assigned female at . status: : No status: NO. PATIENT RELEVANT IMPLANT DATA REVIEWED: Not Applicable PATIENT PRESENTS WITH AN IMPLANTABLE OR ATTACHED MODEL ENGINE MECHANIC: No RADIOLOGY DEPARTMENT: Ultrasound PERIPHERAL IV DATA: Not applicable SIGNED BY: RT Keven(R) August 16, 2024 11:06 AM[facility] Telephone encounter Note* Telephone Encounter - Amarilis Muñoz - 05/25/2024 11:40 AM EDT LVM to schedule with on day Annual F/UP for Bilateral carotid artery stenosis, Hx of right-sided carotid endarterectomy with USCAROTID BILAT 08/16/2024 *CB* [facility]04-11-2025 Miscellaneous Notes* Telephone Encounter - Amarilis Muñoz - 05/25/2024 11:40 AM EDT LVM to schedule with on day Annual F/UP for Bilateral carotid artery stenosis, Hx of right-sided carotid endarterectomy with USCAROTID BILAT 08/16/2024 *CB* documented in this encounterProv[facility] Hospital10-11-2024 Instructions* Patient Education - Kim Montes RN - 11/25/2023 3:00 PM EDT 14 Day Extended Wear Patch monitor applied and explained to patient with verbalized understanding. [facility]10-11-2024 Miscellaneous Notes* Patient Education - Kim Montes RN - 11/25/2023 3:00 PM EDT 14 Day Extended Wear Patch monitor applied and explained to patient with verbalized understanding. documented in this encounterProvidence Hospital09-25-2024 Instructions* Patient Instructions* Duke Carrion MD - 11/09/2023 11:52 AM EDT Atrial Fibrillation What is atrial fibrillation? Atrial fibrillation (also called A-fib) is a fast or irregular heartbeat that starts in the upper chambers of the heart. The abnormal heartbeat affects the ability of the heart to pump blood to the rest of the body. What is the cause? An electrical signal in your heart starts each heartbeat, causing the heart muscle to squeeze (contract). Normally, this signal starts in the upper right chamber of the heart (the right atrium) at a place called the sinus node. The signal then follows normal pathways to the upper left atrium and tothe lower chambers of the heart (the ventricles). When you have atrial fibrillation, electrical signals don t start in the normal place in the right atrium and don t travel normally. This can cause the upper chambers of the heart (atria) to beat very fast and not in a normal pattern. Common causes of heart rhythm problems are conditions that damage the heart, like coronary artery disease, heart attack, or heart failure. Problems with the heart valves are another common cause. The heart has 4 valves that open and closewith each heartbeat to help blood flow in the right direction through the heart. Other causes of atrial fibrillation include: Health problems, such as a stroke, lung disease, diabetes, overactive thyroid gland, or high blood pressure Abuse of alcohol or drugs, such as cocaine Sometimes no cause can be found. What are the symptoms? Some people don t have any symptoms. When atrial fibrillation does cause symptoms, the most common ones are: Feeling like your heart is beating too fast or too hard or skipping beats or fluttering Feeling tired or weak all the time Symptoms that are more serious include: Chest pain Trouble breathing Lightheadedness or dizziness Confusion How is it diagnosed? Your healthcare provider will ask about your symptoms and medical history and examine you. Tests may include: An ECG (also called an EKG), which measures and records your heartbeat. You may have an ECG while you are resting or while you exercise on a treadmill. You may also be asked to wear a small portable ECG monitor for a few days or sometimes a couple weeks. Blood tests An echocardiogram, which uses sound waves (ultrasound) to show the structures of the heart, like the valves How is it treated? The goal of treatment is to help the heart keep a normal rhythm. Your treatment depends on the cause of the atrial fibrillation, how often you have symptoms, and the severity of your symptoms. If you have no symptoms, or your symptoms are fairly mild, you may not need treatment. For some people atrial fibrillation lasts just a short time and the heart goes back to a normal rhythm on its own. If you keep having spells of atrial fibrillation, treatment may help keep you from having so manyspells. If a health problem like a leaky heart valve is causing the atrial fibrillation, treating the health problem may also treat the fast or irregular heartbeat. Other possible treatments are: Medicine: Your provider may prescribe medicine to slow or restore a normal heart rate and rhythm. You may also need medicine to prevent blood clots because when the heart beats irregularly, some of the blood can stay in the upper chambers too long. This makes it easier for blood clots to form, increasing your risk of having a stroke or heart attack. Electrical cardioversion: First, you will be given medicine called anesthesia to keep you from feeling pain during the procedure. Then your chest will be given an electrical shock. The electrical shock should make your heart start beating normally again. You may need medicine to keep your heart rhythm normal after this procedure. Ablation: Ablation is a procedure that uses a small tube called a catheter to deliver energy to theinside of the heart. The energy (usually radio waves) scars small areas of heart tissue. The scars block abnormal electrical pathways and help you have a normal heart rhythm. With some types of ablation treatment, you will also need a pacemaker. A pacemaker is an electronic device put under the skin of your chest to help control the heartbeat. How can I take care of myself? Take your medicines as prescribed. Keep your appointments for follow-up blood tests. Make sure your healthcare provider knows about changes in your diet or medical condition. Your provider also needs to know about all prescription and nonprescription medicines, herbs, or supplements that you are taking. Some medicines may interact with your heart medicine or increase your risk for atrial fibrillation. If you want to drink alcohol, ask your provider how much is safe for you to drink. Follow your healthcare provider's instructions. Ask your provider: ?How and when you will hear your test results ?How long it will take to recover ?What activities you should avoid and when you can return to your normal activities ?How to take care of yourself at home ?What symptoms or problems you should watch for and what to do if you have them Make sure you know when you should come back for a checkup. How can I help prevent atrial fibrillation? The best prevention is to have a heart-healthy lifestyle. Keep a healthy weight. Eat a healthy diet that is low in sodium and saturated and trans fat. Stay fit with the right kind of exercise for you. Decrease stress. Don t smoke. Limit your use of alcohol. If you have heart disease or high blood pressure, follow your healthcare provider's instructions for treatment. Developed by [employer]. Published by [employer]. Copyright 2014 [employer] and/or one of its subsidiaries. All rights reserved. documented in this encounterProvidence Hospital09-25-2024 NoteHNO ID: [id number] Author: DUKE CARRION MD Service: ? Author Type: Physician Type: Progress Notes Filed: 11/09/2023 13:03 Note Text: PRIMARY CARE PHYSICIAN: Leonor Orellana CNP [address] [place] [address] REFERRING PHYSICIAN: Monica Miller [address] [facility] [address] [facility] [address] Patient Care Team: Leonor Orellana CNP as PCP - General (Family Medicine) Manjinder Toney MD (Cardiology) Mary Stiles APRN.CNP as Referring (Cardiothoracic Surgery) Jan Aparicio MD as Home Care Provider (Cardiothoracic Surgery) Luis Garcia MD (Cardiology) CHIEF COMPLAINT: Paroxysmal atrial fibrillation HISTORY OF PRESENT ILLNESS: Ms. Snell is a 72 year old female with PMH significant for HTN, HLD, carotid artery stenosis s/p right CEA, paroxysmal atrial fibrillation, ERICKA, obesity, CAD s/p PCI to LAD and RCA and s/p CABG x 3 (07/07)/MAZE/RANDOLPH clip who presents today as a referral from cardiac surgery clinic for management of AF. Patient was admitted in June of this year to [facility] after presenting as a transfer from [facility]. She presented to the hospital with worsening chest pain and noted to have troponin elevation, echocardiogram however showed normal EF with no valvular abnormalities. Left heart cath showed a severe left main and multivessel CAD. She was transferred to [facility] for CABG consideration. She underwent CABG x 3 (SUAREZ to LAD, SVG to OM and ramus), left-sided maze and LAAC with 35 atricure on 07/12/2023. She was diagnosed with atrial fibrillation back in January 2023 after she reported palpitations and wore a monitor that revealed atrial fibrillation. She was started on Eliquis at the time. She was placed on amiodarone post CABG surgery but has completed the course and now no longer taking it. Patient has a 40-year pack history of smoking, quit briefly in 2018 and then started smoking again in 2022. She has not had a recurrence of atrial fibrillation since January 2023. She has been participating in rehab and doing well but occasionally still reports SOB and fatigue. She occasionally reports intermittent episodes of palpitations, about once or twice a week. These are usually short lasting and not too terribly inconveniencing for her. She denies chest pain, orthopnea, cough, edema, palpitations, PND, lightheadedness or syncope. I have confirmed and edited as necessary, the PFSH and ROS obtained by others. PAST MEDICAL HISTORY Diagnosis Date Asthma Atherosclerotic heart disease of chilkat coronary artery with unspecified angina pectoris (HCC) CAD (coronary artery disease) Carotid bruit left Carotid stenosis, bilateral Depressive disorder Dizziness and giddiness GERD (gastroesophageal reflux disease) HTN (hypertension) Hyperlipidemia Kidney stones ERICKA (obstructive sleep apnea) PAF (paroxysmal atrial fibrillation) (HCC) PONV (postoperative nausea and vomiting) TIA (transient ischemic attack) PAST SURGICAL HISTORY Procedure Laterality Date ARTHROSCOPY, SHOULDER, SURGI 09/11/2018 BREAST BIOPSY CABG (3) VEIN GRAFTS AND ARTERIAL GRAFT(S) 07/12/2023 CABG x 3; (SUAREZ to LAD, SVG to OM and ramus) on 07/12/23 w/ CARDIAC CATH 07/12/2018 [facility] with stenting CHOLECYSTECTOMY HYSTERECTOMY URETEROSCOPY W/ BIOPSY 12/18/2004 SOCIAL HISTORY Social History Tobacco Use Smoking status: Former Current packs/day: 0.00 Types: Cigarettes Quit date: 08/26/2017 Years since quittin.2 Smokeless tobacco: Never Vaping Use Vaping status: Never Used Substance Use Topics Alcohol use: Not Currently Drug use: Never FAMILY HISTORY Problem Relation Age of Onset Diabetes Mother Hypertension Mother Hyperlipidemia Mother Cancer Father Hypertension Father Hyperlipidemia Father Stroke Father Stroke Sister Hypertension Sister ALLERGIES: ALLERGIES Allergen Reactions Doxycycline Unknown Metoprolol Unknown Oxycodone Unknown MEDICATIONS: busPIRone (BUSPAR) 5 mg tablet Take 5 mg by mouth three times a day. mupirocin (BACTROBAN) 2 % ointment APPLY TO AFFECTED AREA 3 TIMES A DAY FOR 5 DAYS traMADol (ULTRAM) 50 mg tablet Take 50 mg by mouth every 8 hours as needed. traZODone (DESYREL) 50 mg tablet Take 50 mg by mouth as needed. saliva substitute combo no.9 (BIOTENE DRY MOUTH ORAL RINSE) mwsh Use 15 mL as instructed two times a day as needed. acetaminophen (TYLENOL) 500 mg tablet Take 2 tablets by mouth every 6 hours as needed for pain. lidocaine (SALONPAS) 4 % patch Apply 1 Patch as directed once daily as needed. Can cut patch lengthwise and place on area of discomfort. Please remove after 12 hours of use, can replace after patch has been off for [address] (PROTONIX) 40 mg tablet Take 1 tablet by mouth two times a day. furosemide (LASIX) 40 mg tablet Take 1 tablet by mouth two times a day for 4 days, THEN 1 tablet once daily (more content not included)...[facility]09-25-[facility] History of Present illness Narrative* Duke Carrion MD - 11/09/2023 11:30 AM EDT PRIMARY CARE PHYSICIAN: Leonor Orellana CNP [address] [place] [address] REFERRING PHYSICIAN: Monica Miller [address] [facility] [address] [facility] [address] Patient Care Team: Leonor Orellana CNP as PCP - General (Family Medicine) Manjinder Toney MD (Cardiology) Mary Stiles APRN.[facility] as Referring (Cardiothoracic Surgery) Jan Aparicio MD as Home Care Provider (Cardiothoracic Surgery) Luis Garcia MD (Cardiology) CHIEF COMPLAINT: Paroxysmal atrial fibrillation HISTORY OF PRESENT ILLNESS: Ms. Snell is a 72 year old female with PMH significant for HTN, HLD, carotid artery stenosis s/p right CEA, paroxysmal atrial fibrillation, ERICKA, obesity, CAD s/p PCI to LAD and RCA and s/p CABG x 3 (07/07)/MAZE/RANDOLPH clip who presents today as a referral from cardiac surgery clinic for management of AF. Patient was admitted in June of this year to [facility] after presenting as a transfer from [facility]. She presented to the hospital with worsening chest pain and noted to have troponin elevation, echocardiogram however showed normal EF with no valvular abnormalities. Left heart cath showed a severe left main and multivessel CAD. She was transferred to [facility] for CABG consideration. She underwentCABG x 3 (SUAREZ to LAD, SVG to OM and ramus), left-sided maze and LAAC with 35 atricure on 07/12/2023. She was diagnosed with atrial fibrillation back in January 2023 after she reported palpitations and wore a monitor that revealed atrial fibrillation. She was started on Eliquis at the time. She was placed on amiodarone post CABG surgery but has completed the course and now no longer taking it. Patient has a 40-year pack history of smoking, quit briefly in 2017 and then started smoking again in 2022. She has not had a recurrence of atrial fibrillation since January 2023. She has been participatingin rehab and doing well but occasionally still reports SOB and fatigue. She occasionally reports intermittent episodes of palpitations, about once or twice a week. These are usually short lasting and not too terribly inconveniencing for her. She denies chest pain, orthopnea, cough, edema, palpitations, PND, lightheadedness or syncope. I have confirmed and edited as necessary, the PFSH and ROS obtained by others. PAST MEDICAL HISTORY Diagnosis Date Asthma Atherosclerotic heart disease of chilkat coronary artery with unspecified angina pectoris (HCC) CAD (coronary artery disease) Carotid bruit left Carotid stenosis, bilateral Depressive disorder Dizziness and giddiness GERD (gastroesophageal reflux disease) HTN (hypertension) Hyperlipidemia Kidney stones ERICKA (obstructive sleep apnea) PAF (paroxysmal atrial fibrillation) (HCC) PONV (postoperative nausea and vomiting) TIA (transient ischemic attack) PAST SURGICAL HISTORY Procedure Laterality Date ARTHROSCOPY, SHOULDER, SURGI 09/11/2018 BREAST BIOPSY CABG (3) VEIN GRAFTS & ARTERIAL GRAFT(S) 07/12/2023 CABG x 3; (SUAREZ to LAD, SVG to OM and ramus) on 07/12/23 w/ CARDIAC CATH 07/12/2018 [facility] with stenting CHOLECYSTECTOMY HYSTERECTOMY URETEROSCOPY W/ BIOPSY 12/18/2004 SOCIAL HISTORY Social History Tobacco Use Smoking status: Former Current packs/day: 0.00 Types: Cigarettes Quit date: 08/26/2017 Years since quittin.2 Smokeless tobacco: Never Vaping Use Vaping status: Never Used Substance Use Topics Alcohol use: Not Currently Drug use: Never FAMILY HISTORY Problem Relation Age of Onset Diabetes Mother Hypertension Mother Hyperlipidemia Mother Cancer Father Hypertension Father Hyperlipidemia Father Stroke Father Stroke Sister Hypertension Sister ALLERGIES: ALLERGIES Allergen Reactions Doxycycline Unknown Metoprolol Unknown Oxycodone Unknown MEDICATIONS: busPIRone (BUSPAR) 5 mg tablet Take 5 mg by mouth three times a day. mupirocin (BACTROBAN) 2 % ointment APPLY TO AFFECTED AREA 3 TIMES A DAY FOR 5 DAYS traMADol (ULTRAM) 50 mg tablet Take 50 mg by mouth every 8 hours as needed. traZODone (DESYREL) 50 mg tablet Take 50 mg by mouth as needed. saliva substitute combo no.9 (BIOTENE DRY MOUTH ORAL RINSE) mwsh Use 15 mL as instructed two times a day as needed. acetaminophen (TYLENOL) 500 mg tablet Take 2 tablets by mouth every 6 hours as needed for pain. lidocaine (SALONPAS) 4 % patch Apply 1 Patch as directed once daily as needed. Can cut patch lengthwise and place on area of discomfort. Please remove after 12 hours of use, can replace after patch has been off for [address] (PROTONIX) 40 mg tablet Take 1 tablet by mouth two times a day. furosemide (LASIX) 40 mg tablet Take 1 tablet by mouth two times a day for 4 days, THEN 1 tablet once daily. (Patient taking differently: Taking 80 mg once daily) ascorbic acid, vitamin C, (VITAMIN C) 500 mg tablet Take 1 tablet by mouth once daily. clopidogrel (PLAVIX) 75 mg tablet Take 1 tablet by mouth once daily. metoprolol tartrate, short acting, (LOPRESSOR) 50 mg tablet Take 1 tablet by mouth three times a day. Please hold for SBP < 100 or HR < 60 apixaban (ELIQUIS) 5 mg tab(s) Take 5 mg by mouth two times a day. DULoxetine (CYMBALTA) 20 mg capsule Take 20 mg by mouth once daily. Patient reports taking duloxetine HCL DR (Cymbalta) 1 (one) capsule by mouth, daily. atorvastatin (LIPITOR) 80 mg tablet Take 80 mg by mouth once daily. ondansetron (ZOFRAN) 4 mg tablet Take 4 mg by mouth every 8 hours as needed. (Patient not taking: Reported on 11/09/2023) magnesium chloride 64 mg magnesium tab Take 2 tablets by mouth once daily. (Patient not taking: Reported on 11/09/2023) melatonin 3 mg tablet Take 3 mg by mouth at bedtime as needed for insomnia. (Patient not taking: Reported on 11/09/2023) potassium chloride (K-TAB) 10 mEq tablet Take 20 mEq by mouth two times a day. (Patient not taking:Reported on 11/09/2023) REVIEW OF SYSTEMS: As in HPI PHYSICAL EXAMINATION: BP 95/50 Pulse 68 Wt 177 lb (80.3kg) SpO2 97% General: Well appearing, in no acute distress. Neck: No jugular venous distention. Lungs: Clear to auscultation bilaterally. Heart: Regular rhythm, S1, S2 normal. Extremities: No peripheral edema. Neuro: Oriented to person, place and time, alert, cooperative, gait coordinated. CARDIOVASCULAR MEDICINE TESTING: Electrocardiogram: Normal sinus rhythm, heart rate 63 bpm. Echocardiogram: OSH TTE, 07/02/2023: Per records, normal EF 65%. OSH TTE, 06/09/2023: Normal LV systolic function ejection fraction 60%. Mild mitral regurgitation. Stress Testing: OSH nuclear stress test, 06/09/2023: Patient exercised on the Miguel protocol for 4:30 achieving 89% of her predicted maximal heart rate and 7 METS. No evidence of myocardial ischemia or scar. Ejectionfraction 69%. Coronary angiography: OSH Left Heart Catheterization, 07/04/2023: 40% stenosis in the ostial left main coronary artery, 60% stenosis in the distal left main coronary artery, 90% ostial LAD stenosis, 20% mid LAD stenosis, 99% ostial left circumflex artery stenosis, 90% ostial ramus intermedius, 30% ostial RCA stenosis, patent prior stent in the RCA. I have personally reviewed the Electrocardiogram. ASSESSMENT/PLAN: 1. Paroxysmal atrial fibrillation (HCC) - ICD9: 427.31, ICD10: I48.0 (primary diagnosis) - ECG B/O W INTERP (MED OFFICE) - EXTENDED WEAR AIRWORTHINESS INSPECTOR PATCH 2. Coronary artery disease involving chilkat coronary artery of chilkat heart without angina pectoris- ICD9: 414.01, ICD10: I25.10 3. Primary hypertension - ICD9: 401.9, ICD10: I10 4. Other hyperlipidemia - ICD9: 272.4, ICD10: E78.49 5. S/P CABG x 3 - ICD9: V45.81, ICD10: Z95.1 6. H/O carotid endarterectomy - ICD9: V45.89, ICD10: Z98.890 7. ERICKA (obstructive sleep apnea) - ICD9: 327.23, ICD10: G47.33 8. Obesity, Class II, BMI 35-39.9 - ICD9: 278.00, ICD10: E66.9 IMPRESSION: Ms. Snell is a 72 year old female with PMH significant for HTN, HLD, carotid artery stenosis s/p right CEA, paroxysmal atrial fibrillation, ERICKA, obesity, CAD s/p PCI to LAD and RCA and s/p CABG x 3 (07/07)/MAZE/RANDOLPH clip who presents today as a referral from cardiac surgery clinic for management of AF. She is doing well from a cardiac standpoint and recovering from CABG surgery and participating inrehab. She has not had any documented recurrence of atrial fibrillation, however does report occasional episodes of palpitations. Was briefly on amiodarone post CABG surgery. PLAN AND RECOMMENDATIONS: -At this time, she will continue metoprolol 50 mg twice daily. -She will continue Eliquis 5 mg twice daily. -2-week patch monitor to assess for etiology of palpitations and whether she had a recurrence of atrial fibrillation. -Depending on the results, we will assess her for additional therapies if high burden of atrial fibrillation versus expectant follow-up. 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 Return in about 6 months (around 05/08/2024) for Afib follow up. Duke Carrion MD * Mindi Ontiveros MA - 11/09/2023 11:12 AM EDT P/T states she has feeling of heart pounding/intermit since surgery. Mindi Ontiveros MA documented [facility]24 NoteHNO ID: [id number] Author: MINDI ONTIVREOS MA Service: ? Author Type: Ross Lift Operator Type: Progress Notes Filed: 11/09/2023 13:03 Note Text: P/T states she has feeling of heart pounding/intermit since surgery. [facility] Tele[facility] encounter Note* Telephone Encounter - Kaleb Duke MA - 08/19/2023 10:38 AM EDT [facility] phone [phone] fax [phone]. Faxed order, 08/12/23 office visit, 07/12/23 CABG operative report, 07/13/23 ECG, & [facility] Miscellaneous Notes* Telephone Encounter - Kaleb Duke MA - 08/19/2023 10:38 AM EDT [facility] phone [phone] fax [phone]. Faxed order, 08/12/23 office visit, 07/12/23 CABG operative report, 07/13/23 ECG, & demographics on documented in this encounterProvidence [facility]07-03-2024 Instructions* Patient Instructions* Inocencia Aaron DO - 08/17/2023 2:43 PM EDT Your right carotid repair site is open and intact without evidence of re-stenosis Your left carotid stenosis has progressed slightly now measuring around 60-79%. We will continue to monitor this with repeat carotid ultrasound in 1 year Indication for repair would be > 80% stenosis or developing symptoms of TIA or stroke. Continue best medical therapy you are already on documented in this encounterProv[facility]07-03-2024 History of Present illness Narrative* Inocencia Aaron DO - 08/17/2023 2:31 PM EDT Images from the original note were not included. [facility] V[facility] Thor[facility] [place] DEPARTMENT OF VASCULAR SURGERY OUTPATIENT VISIT DATE August 17, 2023 OUTPATIENT VISIT TYPE ESTABLISHED SERVICE DATE: 08/17/2023 SERVICE TIME: 2:31 PM PRIMARY CARE PHYSICIAN: Leonor Orellana CNP, CNP HISTORY OF PRESENT ILLNESS: Ms. Snell is a 72 year old female who presents today for a vascular surgery follow-up visit for carotid stenosis. Patient has a history of right carotid endarterectomy (2002) and left carotid stenosis 40-59% by ultrasound. Patient denies symptoms of TIA, stroke, or amaurosis. Patient did have episode of Dizziness in May that prompted cardiac work up. Work up was initiallynegative however ended up admitted to hospital with NSTEMI and underwent open heart surgery CABG with Dr. Aparicio on 07/12/23. Patient is slowly recovering. Chest is still very sore. Post operatively developed pleural effusionrequiring thoracentesis, SOB is better now. Started on eliquis for afib. Now takes plavix statin and eliquis daily. Carotid ultrasound performed on 06/13/23 showed R ICA patch repair widely patent without evidence ofrestenosis. L ICA with 60-79% stenosis (PSV 161/EDV 25) PRIOR VASCULAR INTERVENTIONS: R CEA (Dr. Tsang 2002) PAST MEDICAL HISTORY Diagnosis Date Asthma Atherosclerotic heart disease of chilkat coronary artery with unspecified angina pectoris (HCC) CAD (coronary artery disease) Carotid bruit left Carotid stenosis, bilateral Depressive disorder Dizziness and giddiness GERD (gastroesophageal reflux disease) HTN (hypertension) Hyperlipidemia Kidney stones ERICKA (obstructive sleep apnea) PAF (paroxysmal atrial fibrillation) (HCC) PONV (postoperative nausea and vomiting) TIA (transient ischemic attack) PAST SURGICAL HISTORY Procedure Laterality Date ARTHROSCOPY, SHOULDER, SURGI 09/11/2018 BREAST BIOPSY CABG (3) VEIN GRAFTS & ARTERIAL GRAFT(S) 07/12/2023 CABG x 3; (SUAREZ to LAD, SVG to OM and ramus) on 07/12/23 w/ CARDIAC CATH 07/12/2018 [facility] with stenting CHOLECYSTECTOMY HYSTERECTOMY URETEROSCOPY W/ BIOPSY 12/18/2004 SOCIAL HISTORY Social History Tobacco Use Smoking status: Former Types: Cigarettes Quit date: 08/26/2017 Years since quittin.9 Smokeless tobacco: Never Vaping Use Vaping Use: Never used Substance Use Topics Alcohol use: Not Currently Drug use: Never MEDICATIONS: busPIRone (BUSPAR) 5 mg tablet Take 5 mg by mouth three times a day. mupirocin (BACTROBAN) 2 % ointment APPLY TO AFFECTED AREA 3 TIMES A DAY FOR 5 DAYS ondansetron (ZOFRAN) 4 mg tablet Take 4 mg by mouth every 8 hours as needed. traMADol (ULTRAM) 50 mg tablet Take 50 mg by mouth every 8 hours as needed. magnesium chloride 64 mg magnesium tab Take 2 tablets by mouth once daily. traZODone (DESYREL) 50 mg tablet Take 50 mg by mouth daily at bedtime. saliva substitute combo no.9 (BIOTENE DRY MOUTH ORAL RINSE) mwsh Use 15 mL as instructed two times a day as needed. acetaminophen (TYLENOL) 500 mg tablet Take 2 tablets by mouth every 6 hours as needed for pain. pantoprazole DR (PROTONIX) 40 mg tablet Take 1 tablet by mouth two times a day. melatonin 3 mg tablet Take 3 mg by mouth at bedtime as needed for insomnia. furosemide (LASIX) 40 mg tablet Take 1 tablet by mouth two times a day for 4 days, THEN 1 tablet once daily. (Patient taking differently: Taking 80 mg once daily) amiodarone (PACERONE) 200 mg tablet Take 1 tablet by mouth two times a day for 5 days, THEN 1 tablet once daily. once medication is completed, no longer have to take. ascorbic acid, vitamin C, (VITAMIN C) 500 mg tablet Take 1 tablet by mouth once daily. calcium carbonate (TUMS) 500 mg chew Take 2 tablets by mouth two times a day as needed. (Patient taking differently: Take 1,000 mg by mouth two times a day as needed (acid reflux).) clopidogrel (PLAVIX) 75 mg tablet Take 1 tablet by mouth once daily. ferrous sulfate 325 mg (65 mg iron) tablet Take 1 tablet by mouth once daily. folic acid 1 mg tablet Take 1 tablet by mouth once daily. metoprolol tartrate, short acting, (LOPRESSOR) 50 mg tablet Take 1 tablet by mouth three times a day. Please hold for SBP < 100 or HR < 60 apixaban (ELIQUIS) 5 mg tab(s) Take 5 mg by mouth two times a day. DULoxetine (CYMBALTA) 20 mg capsule Take 20 mg by mouth once daily. Patient reports taking duloxetine HCL DR (Cymbalta) 1 (one) capsule by mouth, daily. atorvastatin (LIPITOR) 80 mg tablet Take 80 mg by mouth once daily. potassium chloride (K-TAB) 10 mEq tablet Take 20 mEq by mouth two times a day. lidocaine (SALONPAS) 4 % patch Apply 1 Patch as directed once daily as needed. Can cut patch lengthwise and place on area of discomfort. Please remove after 12 hours of use, can replace after patch has been off for 12 hours. (Patient not taking: Reported on 08/17/2023) ALLERGIES: ALLERGIES Allergen Reactions Doxycycline Unknown Metoprolol Unknown Oxycodone Unknown PHYSICAL EXAM: BP 120/70 (BP Site: Left Arm, BP Position: Sitting) Pulse 62 Resp 16 Ht 5' (1.524 m) Wt 170lb (77.1 kg) SpO2 98% BMI 33.20 kg/m General: Alert and oriented, No acute distress Cardiovascular: Pulse regular. Right neck scar well healed. _ left bruit Lungs: Normal respiratory effort Extremities: No edema, no chronic skin changes, no ulceration Neurological: Normal cognition and motor skills. No weakness or sensory deficit. Vascular: radial palpable, pedal pulses palp Diagnostic tests reviewed for today's visit: Carotid ultrasound IMPRESSION: Ms. Snell is a 72 year old female with asymptomatic L ICA stenosis 60-79% by ultrasound and widely patent right caroid patch repair with no evidence of restenosis. PLAN and RECOMMENDATIONS: - reviewed results of most recent ultrasound with patient and daughter - plan for best medical therapy with current regiment of plavix, statin, and elqiuis - follow up in 1 year with repeat carotid ultrasound prior to visit I spent 20 minutes in the visit, with more than 50% of the total [id number] time of the visit in counseling / coordination of care. Inocencia Aaron DO documented in this encounterProv[facility]06-28-2024 Instructions* Patient Instructions* Bree Easton APRN.PROGRESSIVE ASSEMBLER AND FITTER - 08/12/2023 2:42 PM EDT You have done a great job recovering from you surgery, moving forward, here are the recommendations: Medications: please continue taking eliquis, plavix, metoprolol and statin for coronary artery disease. Please avoid taking NSAIDs (Aleve, Ibuprofen, Motrin, Advil, Mobic etc). Driving: Ok to drive now! Vest: ok to stop using Cardiac Rehab: Will order this today for [facility]. Please let us know if you do not hear from them in a week or lobo schedule we can follow up. You will have a EKG stress test before and after the cardiac rehab, [facility] Restrictions: slowly increase weight bearing in a gradual fashion (5-10 lbs increment each month) over the next 2-3 months to allow further healing, then gradually resume your normal activities depending on how you feel. Follow-ups: It is crucial to establish future appointments with your main providers, they are you hotel valet attendant, primary care doctor, pulmonology, vascular, and electrophysiology (10/26/[address] Carrion at 11:20 AM) for medications refills/questions and future health management. You can follow up with cardiac surgery team on as needed basis. Please don't hesitate to contact us if you have any concerns/questions: [phone] Thanks for coming in to see me today. Bree Easton APRN.CNP documented in this encounterProv[facility]06-28-2024 History of Present illness Narrative* Bree Easton APRN.CNP - 08/12/2023 2:00 PM EDT HPI: Ms. Domi Snell is a 72 year old female admitted to [facility] 07/07/23 as transfer from [facility] where she presented with accelerating anginal symptoms culminating in NSTEMI (peak troponin 3000). Echo showed EF 65% with no valvular abnormalities. Left heart cath shows severe left main and MV CAD.She is transferred to [facility] for consideration for CABG. Currently pain free. She endorses exertionaland post exertional chest pressure, dyspnea, mild edema. Denies orthopnea, PND, syncope. Risk factors for CAD include HTN, obesity, ERICKA, current tobacco smoking. She has a h/o CAD and is s/p PCI/EVELIN to LAD in 2018 and PCI/EVELIN to RCA in 2019. She has a h/o CVA and is s/p carotid endarterectomy 2012. Denies recent neurologic symptoms. No deficits. She has recently diagnosed with PAF and is chronically anticoagulated with Eliquis. Last dose 06/30. Patient underwent CABG x 3 (SUAREZ to LAD, SVG to OM and ramus), MAZE, LAAC on 07/12/[address] Aparicio. She was transferred to CVICU in stable condition. She was extubated on time per the early extubation protocol. Through the night, patient was hypertensive and was started on a nitro gtt, however then became hypotensive and required young. There were no other acute events through the night. [facility]was [facility] where she continued to recover. She was weaned off O2 and passed ambulatory desat study. Acute rehab was recommended at discharge however patient declined and opted for home. She had been ambulating on her own without issues, moving her bowels, post op nausea resolved, hemodynamically stable with HR 60-70s in NSR, SBP 110-130s. She discharged home on 07/18/23 (POD#6). Per chart review, [facility] called 07/20/23 reporting patient with extreme nausea asking for Rx. At that time, prescription for compazine was sent, called and left patient VM wanting to inquire more about symptoms asking for return call, but per dispense report med was picked up. Per chart review, 07/23/23, social work was added to [facility] for meals on wheels and assistance obtainingDME. 07/26/23 Received notification from [facility] RN that patient presented to [facility] 07/24/23 and admitted for observation until 07/25/23 for progressively worsening shortness of breath. CBC showed WBC 6.8, mild anemia with Hgb 8.3, Hct 26.9, normal PLT, K 2.9, BNP 506.2, initial HS HOMAR 187 -> 191 -> 147. CTA showed no evidence of PE, + moderate bilateral pleural effusions larger on the right, and atelectasis vs infiltrate on the right middle lobe. EKG showed NSR without acute ACS pattern. She was placed on supplental oxygen and given morphine, zofran and duoneb, as well as a dose of levaquin later stopped as pneumonia ruled out. She transferred to [facility] inpatient progressive care unit 07/25/23 where patient/daughter reports patient underwent right thoracentesis on 07/25 with 2000 cc fluid drained and subsequent improving in breathing. Patient discharged home 08/02/23 with [facility] and assistance from family. Patient presents to the office today for first follow up with [facility]. She is one month post op today. Interval events: On encounter, pt accompanied by her daughter and reports each day improving a little. Patient reports the following: Fever/chills: denies Dizziness/lightheadedness/syncope: lightheaded at times, + has ringing in ears which started after endarterectomy but now is more prominent Chest pain/palpitations: denies Incisional pain: very tender Any drainage from site: denies SOB/cough: I'm so glad I can breathe. +little nonproductive cough Activity/Ambulation/Stairs: uses cane for distance Appetite: poor, forcing myself to eat N/V/D/C/abdominal pain: still occasionally nausea, not taking pills on empty stomach, relieved by zofran; + BM Leg swelling: back to normal Sleep: like normal, occasionally will have several nights of poor sleep Energy: overall improving Weights: 20# weight loss since surgery, 171# have plateaued, was 191# prior to surgery BP & HR log reviewed: SBP mostly 120-150s, occasionally 90s to low 100s, occasionally 170s. HR 60-80s Subjective: Current Outpatient Medications Medication Sig prochlorperazine (COMPAZINE) 5 mg tablet Take 1 tablet by mouth every 8 hours as needed. (Patient taking differently: Take 1 tablet by mouth every 8 hours as needed for nausea/vomiting.) melatonin 3 mg tablet Take 3 mg by mouth at bedtime as needed for insomnia. furosemide (LASIX) 40 mg tablet Take 1 tablet by mouth two times a day for 4 days, THEN 1 tablet once daily. acetaminophen (TYLENOL) 500 mg tablet Take 2 tablets by mouth four times daily. albuterol HFA (PROVENTIL HFA, VENTOLIN HFA) 90 mcg/actuation inhaler Inhale 2 Puffs as instructed every 6 hours as needed for wheezing/shortness of breath. amiodarone (PACERONE) 200 mg tablet Take 1 tablet by mouth two times a day for 5 days, THEN 1 tablet once daily. once medication is completed, no longer have to take. ascorbic acid, vitamin C, (VITAMIN C) 500 mg tablet Take 1 tablet by mouth once daily. calcium carbonate (TUMS) 500 mg chew Take 2 tablets by mouth two times a day as needed. (Patient taking differently: Take 2 tablets by mouth two times a day as needed (acid reflux).) clopidogrel (PLAVIX) 75 mg tablet Take 1 tablet by mouth once daily. ferrous sulfate 325 mg (65 mg iron) tablet Take 1 tablet by mouth once daily. folic acid 1 mg tablet Take 1 tablet by mouth once daily. lidocaine (SALONPAS) 4 % patch Can cut patch lengthwise and place on area of discomfort. Please remove after 12 hours of use, can replace after patch has been off for 12 hours. Patient should start on July 19, 2023. (Patient taking differently: Apply 1 application as directed every 12 hours. Can cutpatch lengthwise and place on area of discomfort. Please remove after 12 hours of use, can replace after patch has been off for 12 hours.) magnesium oxide (MAG-OX) 400 mg (241.3 mg magnesium) tablet Take 1 tablet by mouth once daily. (Patient not taking: Reported on 07/19/2023) metoprolol tartrate, short acting, (LOPRESSOR) 50 mg tablet Take 1 tablet by mouth three times a day. Please hold for SBP < 100 or HR < [address] (PROTONIX) 40 mg tablet Take 40 mg by mouth once daily. apixaban (ELIQUIS) 5 mg tab(s) Take 5 mg by mouth two times a day. DULoxetine (CYMBALTA) 20 mg capsule Take 20 mg by mouth once daily. Patient reports taking duloxetine HCL DR (Cymbalta) 1 (one) capsule by mouth, daily. atorvastatin (LIPITOR) 80 mg tablet Take 80 mg by mouth once daily. potassium chloride (K-TAB) 10 mEq tablet Take 20 mEq by mouth once daily. No current facility-administered medications for this visit. Doxycycline, Metoprolol, and Oxycodone PAST MEDICAL HISTORY Diagnosis Date Asthma Atherosclerotic heart disease of chilkat coronary artery with unspecified angina pectoris (HCC) CAD (coronary artery disease) Carotid bruit left Carotid stenosis, bilateral Depressive disorder Dizziness and giddiness GERD (gastroesophageal reflux disease) HTN (hypertension) Hyperlipidemia Kidney stones ERICKA (obstructive sleep apnea) PAF (paroxysmal atrial fibrillation) (HCC) PONV (postoperative nausea and vomiting) TIA (transient ischemic attack) PAST SURGICAL HISTORY Procedure Laterality Date ARTHROSCOPY, SHOULDER, SURGI 09/11/2018 BREAST BIOPSY CABG (3) VEIN GRAFTS & ARTERIAL GRAFT(S) 07/12/2023 CABG x 3; (SUAREZ to LAD, SVG to OM and ramus) on 07/12/23 w/ CARDIAC CATH 07/12/2018 [facility] with stenting CHOLECYSTECTOMY HYSTERECTOMY URETEROSCOPY W/ BIOPSY 12/18/2004 FAMILY HISTORY Problem Relation Age of Onset Diabetes Mother Hypertension Mother Hyperlipidemia Mother Cancer Father Hypertension Father Hyperlipidemia Father Stroke Father Stroke Sister Hypertension Sister Social History Tobacco Use Smoking status: Former Types: Cigarettes Quit date: 08/26/2017 Years since quittin.9 Smokeless tobacco: Never Vaping Use Vaping Use: Never used Substance Use Topics Alcohol use: Not Currently Drug use: Never ROS - see HPI Objective: Physical Examination: Vitals:BP 122/70 Pulse 58 Resp 16 Ht 5' 0 (1.52m) Wt 174 lb 9.6 oz (79.2kg) SpO2 98% BMI 34.10 kg/(m^2). Last 2 Encounter Wt Readings: Date: Wt: 07/21/2023 190 lb 9.6 oz (86.5 kg) 07/21/2023 190 lb 9.6 oz (86.5 kg) Physical Exam Vitals reviewed. Constitutional: General: She is not in acute distress. Appearance: Normal appearance. She is obese. She is not ill-appearing or toxic-appearing. HENT: Mouth/Throat: Mouth: Mucous membranes are moist. Eyes: Extraocular Movements: Extraocular movements intact. Conjunctiva/sclera: Conjunctivae normal. Cardiovascular: Rate and Rhythm: Normal rate and regular rhythm. Pulses: Normal pulses. Heart sounds: Normal heart sounds. No murmur heard. No friction rub. No gallop. Pulmonary: Effort: Pulmonary effort is normal. No respiratory distress. Breath sounds: Normal breath sounds. No stridor. No wheezing, rhonchi or rales. Abdominal: General: Bowel sounds are normal. There is no distension. Palpations: Abdomen is soft. Tenderness: There is no abdominal tenderness. Musculoskeletal: Right lower leg: No edema. Left lower leg: No edema. Skin: General: Skin is warm and dry. Comments: MSI healed without s/sx of infection, + sternal stability CT sites healing, nearly closed without s/sx of infection, MAGGY L SVG site healed, MAGGY without s/sx of infection Neurological: General: No focal deficit present. Mental Status: She is alert and oriented to person, place, and time. Psychiatric: Mood and Affect: Mood normal. Behavior: Behavior normal. Assessment and Plan: MV CAD/ NSTEMI - S/p CABG x 3; (SUAREZ to LAD, SVG to OM and ramus) on 07/12/23 w/ - Pre-op EF 69% - Discharged home 07/18/23 (POD # 6) then admitted to [facility] for observation 07/23-07/24 for chest pain, possible pneumonia then to [facility] Progressive Care Unit until 08/02/23 - Medical management with plavix 75 mg, Lipitor 80mg, metoprolol to 50 mg TID with hold parameters - DC aspirin and started on plavix due to ACS - Pain control per ERAS protocol; currently adequate - Heart healthy diet; - Encourage ambulation, IS use - Can dc post thorax vest, ok to drive and extend sternal precautions to no pushing/pulling/liftingmore than 15-20# this month then add 5-10# every month thereafter as tolerated - Ordered phase II cardiac rehab to start at [facility] Post Op Respiratory Insufficiency - Extubated on time per the extubation protocol - Passed desat study at discharge - Currently 98% - Encourage IS/ deep breathing/ cough/mobilization Right pleural effusion - S/P R thoracentesis with 2L drained per patient/daughter report while at [place] [facility] on 07/26/23 - Continues on lasix 80 mg daily with K replacement - One month post op CXR pending completion - Encouraged patient to schedule follow up with her pulm provider. Paroxysmal Atrial Fibrillation - S/p MAZE and LAAC - Continue Maze protocol with amio 200 mg daily x3 months (starting 07/22) until evaluated by EP 10/25 - Some short bouts of AF on POD#1 and 2 - [facility] [facility] [place] - Currently on home eliquis, denies bleeding issues - [id number] score 6 Post Op Nausea - Ongoing, relieved by zofran - Question if related to dizziness/tinnitus/carotid stenosis - Sees Dr. Aaron next week - Follow up with PCP Post Op Pain - Continue ERAS Protocol - 1000mg Tylenol q 6 - 400mg Magnesium daily - Lidocaine patches - PRN tramadol Volume Overload - Appears euvolemic - On lasix 80 mg daily with K replacement - Has OV with cardiology 08/15/23 - Admission weight 86.2 kg; current weight 79.2 kg - CXR pending for today Acute Blood Loss Anemia - improving - Most recent H&H 8.3/26.9 on 07/24/23 at [facility] (previously was 7.9/25.6 < 7.7/23.7 at [facility]) - No indication to transfuse at this time - Continue anemia protocol x 3 mos - iron/folic acid/vitamin C - Further management/monitoring per PCP Bilateral carotid artery stenosis - Prior R carotid endarterectomy, - GABRIELA 1-39%, LICA 60-79% on bilateral carotid duplex 06/13/23 - Has follow up with Dr. Aaron 08/17/23 Hx of HTN - Labile blood pressures per review of log, SBP 90s - 170s - Continue metoprolol tartrate to 50 mg TID with hold parameters - Home medications include: Coreg 3.125mg BID, imdur 60mg daily Tobacco Abuse - Continued cessation education Hx of ERICKA - Continue home CPAP - Follow up with pulm Hx of Depression - On Cymbalta 20mg daily at home; resumed Hx of GERD - On pantoprazole 40mg BID Good post-op recovery for 1 month follow up Ok to start driving and return to work and gradually resume normal ADLs as tolerated. Cardiac rehabilitation: ordered placed today for [facility] follow up appointment: Dr. Garcia scheduled for 08/15/23 PCP follow up appointment: 08/16/23 CTS follow up: as needed Specialty follow up: Pulm Dr. Louis - encouraged to schedule EP Dr. Carrion - 10/26/[address] Aaron - 08/17/23 Electronically signed by Bree Easton APRN.WILBUR on August 12, 2023, 2:59 PM documented in [facility] encounterProv[facility]06-[facility] Telephone encounter Note * Telephone Encounter - Ayanna Stewart LPN - 08/11/2023 9:58 AM EDT Patient's request for medication is as follows: Requested Prescriptions Refused Prescriptions Disp Refills folic acid 1 mg tablet [Pharmacy Med Name: FOLIC ACID 1 MG TABLET] 90 tablet 1 Sig: TAKE 1 TABLET BY MOUTH EVERY DAY metoprolol tartrate, short acting, (LOPRESSOR) 50 mg tablet [Pharmacy Med Name: METOPROLOL [id number] MG TAB] 270 tablet 1 Sig: Take 1 tablet by mouth three times a day. Please hold for SBP < 100 or HR < 60 Last confirmed receipt to pharmacy on 07/18/2023 for 90 tabs. Prescription(s) as above. Please process accordingly. Ayanna Stewart LPN [facility]06-27-2024 Miscellaneous Notes* Telephone Encounter - Ayanna Stewart LPN - 08/11/2023 9:58 AM EDT Patient's request for medication is as follows: Requested Prescriptions Refused Prescriptions Disp Refills folic acid 1 mg tablet [Pharmacy Med Name: FOLIC ACID 1 MG TABLET] 90 tablet 1 Sig: TAKE 1 TABLET BY MOUTH EVERY DAY metoprolol tartrate, short acting, (LOPRESSOR) 50 mg tablet [Pharmacy Med Name: METOPROLOL [id number] MG TAB] 270 tablet 1 Sig: Take 1 tablet by mouth three times a day. Please hold for SBP < 100 or HR < 60 Last confirmed receipt to pharmacy on 07/18/2023 for 90 tabs. Prescription(s) as above. Please process accordingly. Ayanna Stewart LPN documented in this encounterProvidence Hospital06-11-2024 Telephone encounter Note * Telephone Encounter - Johnny Polo RN - 07/26/2023 6:49 AM EDT Elvie Aparicio: Your home health patient has been admitted to [facility]. All home health services have been placed on HOLD. The patient will require a resumption of care order upon discharge from the hospital. Thank you. Johnny Polo RN [facility] Work Phone: [phone]) 915-385506-11-2024 Miscellaneous Notes* Telephone Encounter - Johnny Polo RN - 07/26/2023 6:49 AM EDT Elvie Aparicio: Your home health patient has been admitted to [facility]. All home health services have been placed on HOLD. The patient will require a resumption of care order upon discharge from the hospital. Thank you. Johnny Polo RN [facility] documented in this encounterProvidence Hospital06-11-2024 Miscellaneous Notes* CARE COORDINATION - Johnny Polo RN - 07/26/2023 6:25 AM EDT Patient has been admitted to [facility]. All home health services have been placed on HOLD. Dr. Aparicio notified of hospitalization. EMMANUEL salas notified of hospitalization. Transfer completed. documented in this encounterProvidence Hospital06-11-2024 Patient's home Note* CARE COORDINATION - Johnny Polo RN - 07/26/2023 6:25 AM EDT Patient has been admitted to [facility]. All home health services have been placed on HOLD. Dr. Aparicio notified of hospitalization. EMMANUEL salas notified of hospitalization. Transfer completed. [facility] Work Phone: [phone] Telephone encounter Note* Telephone Encounter - Kaleb Duke MA - 07/25/2023 10:07 AM EDT [facility] (Electrophysiology) referral sent via portal Dx S/p CABG/MAZE/LAAC. Needs visit with EPS 3 months. On amio and christine Confirmation number: [id number] [facility]06-10-[facility]24 Miscellaneous Notes* Telephone Encounter - Kaleb Duke MA - 07/25/2023 10:07 AM EDT [facility] (Electrophysiology) referral sent via portal Dx S/p CABG/MAZE/LAAC. Needs visit with EPS 3 months. On catalina and christine Confirmation number: [id number] documented in this encounterProvidence Hospital06-10-2024 Miscellaneous Notes* CARE COORDINATION - Robina Rowe LSW - 07/25/2023 9:30 AM EDT 07/25/23 9:31 AM - 9:34 AM UKE DRIVER called the pt.'s regarding community resources and UKE DRIVER visit.The pt.'s stated that the pt. was admitted to [facility] yesterday morning and that the pt. has Pneumonia. UKE DRIVER inforned the pt.'s she will inform the staff of this. 07/25/23 9:36 AM UKE DRIVER Emailed [facility] Field Support Scheduling, Johnny Polo RN Case Manager, Ifeanyi Bermeo, I just spoke to the of the pt. Domi Snell and he stated that the pt. was admitted to [facility] yesterday and that the pt. has Pneumonia. Thanks, documented in this encounterProvidence Hospital06-10-2024 Patient's home Note* CARE COORDINATION - Robina Rowe LSW - 07/25/2023 9:30 AM EDT 07/25/23 9:31 AM - 9:34 AM UKE DRIVER called the pt.'s regarding community resources and UKE DRIVER visit.The pt.'s stated that the pt. was admitted to [facility] yesterday morning and that the pt. has Pneumonia. UKE DRIVER inforned the pt.'s she will inform the staff of this. 07/25/23 9:36 AM UKE DRIVER Emailed [facility] Field Support Scheduling, Johnny Polo RN Case Manager, Ifeanyi Bermeo, I just spoke to the of the pt. Domi Snell and he stated that the pt. was admitted to [facility] yesterday and that the pt. has Pneumonia. Thanks, [facility] Work Phone: [phone]) 432-356006-07-2024 Telephone encounter Note* Telephone Encounter - Johnny Polo RN - 07/22/2023 4:[address] Aparicio, The patient is requesting assist with meals on wheels and assist with obtaining DME, I will be adding a Home Health SW referral to her POC. Thank you in advance for your review of this information. Johnny Polo RN [facility] Work Phone: [phone]) 495-482606-07-2024 Miscellaneous Notes* Telephone Encounter - Johnny Polo RN - 07/22/2023 4:[address] Aparicio, The patient is requesting assist with meals on wheels and assist with obtaining DME, I will be adding a Home Health SW referral to her POC. Thank you in advance for your review of this information. Johnny Polo RN [facility] documented in this encounterProvidence Hospital06-07-2024 Miscellaneous Notes* HH CARE COORDINATION - Johnny Polo RN - 07/22/2023 4:00 PM EDT F/up telephone encounter sent to Dr. Aparicio for HARD TILE SETTER APPRENTICE referral per patient request for community resources assist with DME. HARD TILE SETTER APPRENTICE referral updated to POC. documented in this encounterProvidence Hospital06-07-2024 Patient's home Note* HH CARE COORDINATION - Johnny Polo RN - 07/22/2023 4:00 PM EDT F/up telephone encounter sent to Dr. Aparicio for HARD TILE SETTER APPRENTICE referral per patient request for community resources assist with DME. HARD TILE SETTER APPRENTICE referral updated to POC. [facility] Work Phone: [phone]) [phone] Telephone encounter Note* Telephone Encounter - Chanelle Alcaraz - 07/22/2023 1:34 PM EDT There has been a delay in service for Home Care OT Evaluation for this patient due to schedule conflict. Patient was notified on 07/22/23. Thank you for this referral, please contact us with any questions. Chanelle Alcaraz [facility]06-07-2024 Miscellaneous Notes* Telephone Encounter - Chanelle Alcaraz - 07/22/2023 1:34 PM EDT There has been a delay in service for Home Care OT Evaluation for this patient due to schedule conflict. Patient was notified on 07/22/23. Thank you for this referral, please contact us with any questions. Chanelle Alcaraz documented in this encounterProvidence Hospital06-06-2024 Miscellaneous Notes* SN Routine - Karena Bradley LPN - 07/21/2023 3:06 PM EDT SITUATION: Prison routine visit completed today. spouse and friend also present during today's visit. patient reports the following: Allergies--reviewed Medications--reviewed current medications Falls--None DME-Reviewed and added to chart BACKGROUND: Reason for Home Care: Discharged/Referral from acute care hospital on 07/18/23 following treatment for CABG x3. ASSESSMENT: SN greeted at door by caregiver. Upon entrance patient found in chair Patient appears in no acute distress. Patient/CG concerns verbalized today: Nausea, increased shortness of breath intermittently Vitals (see flow sheet for details): stable SN findings today: Patient sitting upright in living room during SN visit with two friends visiting, spouse comes in later on in the SN visit. C/o nausea intermittently today, no vomiting. Able to keep fluids down. SN spoke with daughter lastPM while scheduling visit, patient was very nauseous which is affecting sleep, hard time breathing when having dry heaves. Motion sickness pills helped. Drank some sprite and water. Used inhaler as needed. Patient has her inhaler close by, has used it today. Patient has a nebulizer but she doesn't have the solution and masks/cords. Incentive Spirometer is in the home, patient is using it during visit. Appetite is poor, trying to keep some crackers down, some broth. Veneer Department Manager Dr. Lucien Louis prescribes her nebulizer medication, patient asked if SN could contact this provider (Phone) - SN called office to notify MD of patient's symptoms and to get another refill sent for as needed nebulizer medication. Office to call her back for any questions or concerns. No assistive devices when ambulating. She takes it slow. From the living room to the stairs makes her short of breath. Incentive spirometer helps. Patient sitting for longer than 10+ minutes, SPO2 is 92-95% on RA. Patient is short of breath even walking about 12 feet. It takes her a few minutes to get back to baseline. Patient would like to discuss possible home O2 as needed for appointments and times when she is short of breath. SN will reach out to UKE DRIVER to contact family about services available to her. Weight: today was 190.6lbs; yesterday was 190.6lbs, 07/18 was 192.6lbs Wound care - three lap sites are open, draining small serosanguinous fluid, wound treatment performed, patient tolerated well. SN left car stock wound supplies. Will request wound consult for patientin order to get lap sites healed appropriately. Follow up appt with Dr. Rehman - Tuesday at 2pm. CM sent message to provider for SN d/t EPIC/VPN down and SN unable to send communication in regard to increased shortness of breath/patient requesting oxygen services. SN sent email to DOUG, UKE DRIVER in regard to this information. See intervention summary for education details. Patient demonstrated a need for further skilled SN services for chronic disease management & education, medication education, wound/skin care, safety and infection control/prevention. Current Discharge plan: self-care and family support RECOMMENDATION: Next visit to focus on (be specific): CHF assessment, weight, rescue inhaler use, IS use, has MD called her back, wound care, any new orders documented in this encounterProvidence Hospital06-06-2024 Patient's home Note* SN Routine - Karena Bradley LPN - 07/21/2023 3:06 PM EDT SITUATION: Prison routine visit completed today. spouse and friend also present during today's visit. patient reports the following: Allergies--reviewed Medications--reviewed current medications Falls--None DME-Reviewed and added to chart BACKGROUND: Reason for Home Care: Discharged/Referral from acute care hospital on 07/18/23 following treatment for CABG x3. ASSESSMENT: SN greeted at door by caregiver. Upon entrance patient found in chair Patient appears in no acute distress. Patient/CG concerns verbalized today: Nausea, increased shortness of breath intermittently Vitals (see flow sheet for details): stable SN findings today: Patient sitting upright in living room during SN visit with two friends visiting, spouse comes in later on in the SN visit. C/o nausea intermittently today, no vomiting. Able to keep fluids down. SN spoke with daughter lastPM while scheduling visit, patient was very nauseous which is affecting sleep, hard time breathing when having dry heaves. Motion sickness pills helped. Drank some sprite and water. Used inhaler as needed. Patient has her inhaler close by, has used it today. Patient has a nebulizer but she doesn't have the solution and masks/cords. Incentive Spirometer is in the home, patient is using it during visit. Appetite is poor, trying to keep some crackers down, some broth. Veneer Department Manager Dr. Lucien Louis prescribes her nebulizer medication, patient asked if SN could contact this provider (Phone) - SN called office to notify MD of patient's symptoms and to get another refill sent for as needed nebulizer medication. Office to call her back for any questions or concerns. No assistive devices when ambulating. She takes it slow. From the living room to the stairs makes her short of breath. Incentive spirometer helps. Patient sitting for longer than 10+ minutes, SPO2 is 92-95% on RA. Patient is short of breath even walking about 12 feet. It takes her a few minutes to get back to baseline. Patient would like to discuss possible home O2 as needed for appointments and times when she is short of breath. SN will reach out to UKE DRIVER to contact family about services available to her. Weight: today was 190.6lbs; yesterday was 190.6lbs, 07/18 was 192.6lbs Wound care - three lap sites are open, draining small serosanguinous fluid, wound treatment performed, patient tolerated well. SN left car stock wound supplies. Will request wound consult for patientin order to get lap sites healed appropriately. Follow up appt with Dr. Rehman - Tuesday at 2pm. CM sent message to provider for SN d/t EPIC/VPN down and SN unable to send communication in regard to increased shortness of breath/patient requesting oxygen services. SN sent email to BLACK CAMACHO in regard to this information. See intervention summary for education details. Patient demonstrated a need for further skilled SN services for chronic disease management & education, medication education, wound/skin care, safety and infection control/prevention. Current Discharge plan: self-care and family support RECOMMENDATION: Next visit to focus on (be specific): CHF assessment, weight, rescue inhaler use, IS use, has MD called her back, wound care, any new orders [facility] Work Phone: 1([phone]) 708-595306-06-2024 Miscellaneous Notes* PT EVALUATION - Ileana Bean PT - 07/21/2023 12:51 PM EDT SITUATION: spouse present during today's visit. patient reports the following since the last homecare visit: medications/allergies--no changes, no fall. patient reports that she feels so weak. Reports that she was vominiting for the past day and half. Able to keep down fuids and crackers today . Spouse concerned because the doctor was supposed to call in something for nausea and they havent heard anything. Explained that i can see in the system darlene tit was sent to [facility] yesterday so he can go pick it up BACKGROUND: Diagnoses (reason for Home Care): [facility] 06/30- with NSTEMI [facility] on 07/07/23-07/18/23. Primary Diagnoses (reason for Home Care): Encounter for surgical aftercare following surgery on thecirculatory system. PROCEDURE(S): 07/12/23. Coronary Artery Bypass Graft x3 MAZE ACTIVE PROBLEM LIST Nstemi (Non-St Elevated Myocardial Infarction) (Hcc) SPECIFIC ORDERS: - Precautions/Activity Restrictions: Fall risk. Sternal precautions. Lifting retricted to less than 10 lbs. No driving until cleared by surgeon. Wear the post thorax vest when you are up and about. Ok to release it when seated or laying down. Vest wear for 1 month during activities. Incentive spirometer (breathing tool): use it 10 times every hour when you are awake to optimize your breathing and prevent pneumonia. Compression stocking: please put them on 1st thing in the morning and take off at night and keep legs elevated when seated or laying down. Equipment Owned: Rollator, Other: See Comment (pt. had a rollator but is unsure if they still have it) Monitoring: Monitor heart rate, blood pressure, daily weights, or possible temperature and keep a log to bring to the first visit. Call parameters: Please call if the following occurred: - Heart rateless than 60 or greater than 120 - Blood pressure less than 100/50 or greater than 150/90 - Weight gain greater than 4 lbs in 24 hours - temperature grater than 99.5 or wound drainage ASSESSMENT: Patient evaluated by [facility] therapy. Reviewed and explained homecare services. Plan of care, goals, and visit frequency developed, reviewed, and agreed upon with patient and/or caregiver. Patient Goal: get my strength back and take care of myself Patient will benefit from continued physical therapy to address the following deficits: strength, balance, gait, endurance and stair negotiation. Current Discharge Plan:cardiac rehab . Anticipate discharge by 08/20/23 RECOMMENDATION: Next visit to focus on tehr ex, gait, steps See intervention summary for intervention/education details. documented in this encounterProvidence Hospital06-06-2024 Patient's home Note* PT EVALUATION - Ileana Bean PT - 07/21/2023 12:51 PM EDT SITUATION: spouse present during today's visit. patient reports the following since the last homecare visit: medications/allergies--no changes, no fall. patient reports that she feels so weak. Reports that she was vominiting for the past day and half. Able to keep down fuids and crackers today . Spouse concerned because the doctor was supposed to call in something for nausea and they havent heard anything. Explained that i can see in the system darlene tit was sent to [facility] yesterday so he can go pick it up BACKGROUND: Diagnoses (reason for Home Care): [facility] 06/30- with NSTEMI [facility] on 07/07/23-07/18/23. Primary Diagnoses (reason for Home Care): Encounter for surgical aftercare following surgery on thecirculatory system. PROCEDURE(S): 07/12/23. Coronary Artery Bypass Graft x3 MAZE ACTIVE PROBLEM LIST Nstemi (Non-St Elevated Myocardial Infarction) (Hcc) SPECIFIC ORDERS: - Precautions/Activity Restrictions: Fall risk. Sternal precautions. Lifting retricted to less than 10 lbs. No driving until cleared by surgeon. Wear the post thorax vest when you are up and about. Ok to release it when seated or laying down. Vest wear for 1 month during activities. Incentive spirometer (breathing tool): use it 10 times every hour when you are awake to optimize your breathing and prevent pneumonia. Compression stocking: please put them on 1st thing in the morning and take off at night and keep legs elevated when seated or laying down. Equipment Owned: Rollator, Other: See Comment (pt. had a rollator but is unsure if they still have it) Monitoring: Monitor heart rate, blood pressure, daily weights, or possible temperature and keep a log to bring to the first visit. Call parameters: Please call if the following occurred: - Heart rateless than 60 or greater than 120 - Blood pressure less than 100/50 or greater than 150/90 - Weight gain greater than 4 lbs in 24 hours - temperature grater than 99.5 or wound drainage ASSESSMENT: Patient evaluated by [facility] physical therapy. Reviewed and explained homecare services. Plan of care, goals, and visit frequency developed, reviewed, and agreed upon with patient and/or caregiver. Patient Goal: get my strength back and take care of myself Patient will benefit from continued physical therapy to address the following deficits: strength, balance, gait, endurance and stair negotiation. Current Discharge Plan:cardiac rehab . Anticipate discharge by 08/20/23 RECOMMENDATION: Next visit to focus on tehr ex, gait, steps See intervention summary for intervention/education details. [facility] Work Phone: [phone]) [phone] Telephone encounter Note* Telephone Encounter - Bree Easton APRN.CNP - 07/20/2023 4:46 PM EDT Sent Rx for compazine. See my other telephone encounter for details. [facility] Work Phone: [phone] Miscellaneous Notes* Telephone Encounter - Bree Easton APRN.CNP - 07/20/2023 4:46 PM EDT Sent Rx for compazine. See my other telephone encounter for details. * Telephone Encounter - Mavis Bettencourt RN - 07/20/2023 12:47 PM EDT Elvie, Pt calling stating pt is having nausea. Asking for medications to be sent to pharmacy. Please contact them directly with any instructions or meds that may be able to be called in and assist. Please call [phone], fax to [phone] or inbasket the [facility] Triage pool if you would like home care to enact any orders you may have. Please do not respond to this msg, as I may not be the triage nurse working that day. Thank you Nancy in triage. documented in this encounterProvidence Hospital06-05-2024 Telephone encounter Note * Telephone Encounter - Bree Easton APRN.CNP - 07/20/2023 4:37 PM EDT Returned call to patient with no answer, left VM letting her know I sent Rx for compazine to pharmacy of her choice however would like return call to inquire more about her symptoms/make sure she's doing ok. Asked for return call. [facility]06-05-2024 Miscellaneous Notes* Telephone Encounter - Bree Easton APRN.PROGRESSIVE ASSEMBLER AND FITTER - 07/20/2023 4:37 PM EDT Returned call to patient with no answer, left VM letting her know I sent Rx for compazine to pharmacy of her choice however would like return call to inquire more about her symptoms/make sure she's doing ok. Asked for return call. * Telephone Encounter - Mallika Penn LPN - 07/20/2023 1:06 PM EDT Brittanie, [facility], , calling in and left message on Nurse's Line that patient is experiencing extreme nausea and is asking for something to be called in? (Please see previous Telephone Encounters) Pharmacy verified: [facility]. Mallika Penn LPN July 20, 2023 1:08 PM documented in this encounterProvidence Hospital06-05-2024 Telephone encounter Note * Telephone Encounter - Angel Jones RN - 07/20/2023 2:20 PM EDT Hello- pt asking [facility] if social work consult can be placed to assist with DME needs and meals. Is that OK with you? Thanks! Angel Jones RN [facility] Work Phone: [phone]) [phone] Miscellaneous Notes* Telephone Encounter - Angel Jones RN - 07/20/2023 2:20 PM EDT Hello- pt asking [facility] if social work consult can be placed to assist with DME needs and meals. Is that OK with you? Thanks! Angel Jones RN [facility] documented in this encounterProv[facility]06[facility] Telephone encounter Note * Telephone Encounter - Mallika Penn LPN - 07/20/2023 1:06 PM EDT Brittanie, [facility], , calling in and left message on Nurse's Line that patient is experiencing extreme nausea and is asking for something to be called in? (Please see previous Telephone Encounters) Pharmacy verified: [facility]. Mallika Penn LPN July 20, 2023 1:08 PM [facility]06-05-[facility] Telephone encounter Note* Telephone Encounter - Mavis Bettencourt RN - 07/20/2023 12:47 PM EDT Elvie, Pt calling stating pt is having nausea. Asking for medications to be sent to pharmacy. Please contact them directly with any instructions or meds that may be able to be called in and assist. Please call [phone], fax to [phone] or inbasket the [facility] Triage pool if you would like home care to enact any orders you may have. Please do not respond to this msg, as I may not be the triage nurse working that day. Thank you Nancy in triage. [facility] Work Phone: 1(282) 233-481106-04-2024 Telephone encounter Note* Telephone Encounter - Angel Jones, KAYLI - 07/19/2023 4:06 PM EDT Hello! Pt seen for home care nursing start of care today. Pt is experiencing some SOB at rest but pulse ox reading is 95% and above at rest and after ambulation on room air. Lungs clear. Pt is using incentive spirometer regularly. I noted some issues at visit today I would like to bring to your attention: -Pt having frequent intermittent nausea- this was going on in the hospital but was not sent home with antinausea medications. Can this be ordered for her?? -Pt having bilateral shoulder blade pain that is constant and rating it up to 10/10 at times. I feel this could be muscular by her descriptions of the pain. She is not getting any sleep due to this pain. Tramadol not helping. Can she try a muscle relaxer?? -BLE slightly swollen, pitting +1- pt plans to get compression stockings today to try that and I educated about diet and elevation. -Pt is prescribed Plavix and Eliquis. I wanted to be sure this was correct. I educated pt and pt about fall risks and bleeding risks extensively. Thanks for your time, Angel Jones RN [facility] Work Phone: 1(862) 157-780406-04-2024 Miscellaneous Notes* Telephone Encounter - Angel Jones RN - 07/19/2023 4:06 PM EDT Hello! Pt seen for home care nursing start of care today. Pt is experiencing some SOB at rest but pulse ox reading is 95% and above at rest and after ambulation on room air. Lungs clear. Pt is using incentive spirometer regularly. I noted some issues at visit today I would like to bring to your attention: -Pt having frequent intermittent nausea- this was going on in the hospital but was not sent home with antinausea medications. Can this be ordered for her?? -Pt having bilateral shoulder blade pain that is constant and rating it up to 10/10 at times. I feel this could be muscular by her descriptions of the pain. She is not getting any sleep due to this pain. Tramadol not helping. Can she try a muscle relaxer?? -BLE slightly swollen, pitting +1- pt plans to get compression stockings today to try that and I educated about diet and elevation. -Pt is prescribed Plavix and Eliquis. I wanted to be sure this was correct. I educated pt and pt about fall risks and bleeding risks extensively. Thanks for your time, Angel Jones RN [facility] documented in this encounterProvidence Hospital06-04-2024 Miscellaneous Notes* HH SN SOC - Angel Jones RN - 07/19/2023 1:31 PM EDT SITUATION: [facility] SOC visit completed today. spouse also present during today's visit. patient reports the following: Allergies--reviewed Medications--full medication reconciliation completed Falls--None DME-NONE BACKGROUND: Discharged/Referral from [facility] on 07/18/23 following treatment for CABG x3. ASSESSMENT: SN greeted at door by caregiver. Upon entrance patient found in chair Patient appears in acute distress. Patient lives at home with . Home environment: clean and cluttered. SOC booklet reviewed & completed with patient and consent obtained for Home Care services. Patient/CG concerns verbalized today: see note below Vitals (see flow sheet for details): stable SN findings today: Pt is experiencing some SOB at rest but pulse ox reading is 95% and above at rest and after ambulation on room air. Lungs clear. Pt is using incentive spirometer regularly. Pt having frequent intermittent nausea- this was going on in the hospital but was not sent home with antinausea medications. SN requested antinausea med order from MD- awiting reply. Pt having bilateral shoul thai blade pain that is constant and rating it up to 10/10 at times. SN feels this could be muscularby her descriptions of the pain. She is not getting any sleep due to this pain. Tramadol not helping. SN requested muscle relaxer from MD- awaiting reply. BLE slightly swollen, pitting +1- pt plans to get compression stockings today to try that and SN educated about diet and elevation. Pt is prescribed Plavix and Eliquis. SN educated pt and pt about fall risks and bleeding risks extensively. Pt sternal wound and LLE wounds without s&s of infection and intact with surgical glue. 3 puncture wounds present at top of abdomen/bottom of sternum from drains. Wounds are dark and scrabbed but draining slightly. Left MAGGY. Meds managed by pt daughter whom is a nurse per the pt. SN requested order for [employer]ICE per pt request for DME and meal assistance. Admission booklet reviewed. Triage number explained and noted. No further questions or concerns today. See intervention summary for education details and skills performed. Plan of care and visit frequency established with patient and plan of care agreed upon. Patient demonstrated a need for further skilled SN services for chronic disease management & education, medication education, wound/skin care and safety. RECOMMENDATION: Visit Frequency: 2w3, 1w4 Need for additional services: Patient agreeable to PT, OT and [employer]TER [employer]ENTICE referrals. Patient declined N/A referrals. Additional concerns to be followed up on: NONE Next visit to focus on (be specific): HARD TILE SETTER APPRENTICE approved by MD?? did pt get nausea meds and muscle relaxers??, pain assessment, respiratory assessment, wound assessment documented in this encounterProvidence Hospital06-04-2024 Patient's home Note* SN SOC - Angel Jones RN - 07/19/2023 1:31 PM EDT SITUATION: Prison SOC visit completed today. spouse also present during today's visit. patient reports the following: Allergies--reviewed Medications--full medication reconciliation completed Falls--None DME-NONE BACKGROUND: Discharged/Referral from acute care hospital on 07/18/23 following treatment for CABG x3. ASSESSMENT: SN greeted at door by caregiver. Upon entrance patient found in chair Patient appears in acute distress. Patient lives at home with . Home environment: clean and cluttered. SOC booklet reviewed & completed with patient and consent obtained for Home Care services. Patient/CG concerns verbalized today: see note below Vitals (see flow sheet for details): stable SN findings today: Pt is experiencing some SOB at rest but pulse ox reading is 95% and above at rest and after ambulation on room air. Lungs clear. Pt is using incentive spirometer regularly. Pt having frequent intermittent nausea- this was going on in the hospital but was not sent home with antinausea medications. SN requested antinausea med order from MD- awiting reply. Pt having bilateral shoul thai blade pain that is constant and rating it up to 10/10 at times. SN feels this could be muscularby her descriptions of the pain. She is not getting any sleep due to this pain. Tramadol not helping. SN requested muscle relaxer from MD- awaiting reply. BLE slightly swollen, pitting +1- pt plans to get compression stockings today to try that and SN educated about diet and elevation. Pt is prescribed Plavix and Eliquis. SN educated pt and pt about fall risks and bleeding risks extensively. Pt sternal wound and LLE wounds without s&s of infection and intact with surgical glue. 3 puncture wounds present at top of abdomen/bottom of sternum from drains. Wounds are dark and scrabbed but draining slightly. Left MAGGY. Meds managed by pt daughter whom is a nurse per the pt. SN requested order for HARD TILE SETTER APPRENTICE per pt request for DME and meal assistance. Admission booklet reviewed. Triage number explained and noted. No further questions or concerns today. See intervention summary for education details and skills performed. Plan of care and visit frequency established with patient and plan of care agreed upon. Patient demonstrated a need for further skilled SN services for chronic disease management & education, medication education, wound/skin care and safety. RECOMMENDATION: Visit Frequency: 2w3, 1w4 Need for additional services: Patient agreeable to PT, OT and HARD TILE SETTER APPRENTICE referrals. Patient declined N/A referrals. Additional concerns to be followed up on: NONE Next visit to focus on (be specific): HARD TILE SETTER APPRENTICE approved by MD?? did pt get nausea meds and muscle relaxers??, pain assessment, respiratory assessment, wound assessment [facility] Work Phone: 1(531) 799-877406-04-2024 Telephone encounter Note* Telephone Encounter - Ericka Nettles - 07/19/2023 9:30 AM EDT Patient recently had surgery and is in pain. She will call back at a later time to schedule OV. CB PT. Annual F/up - Internal carotid artery stenosis, bilateral * US DUP at [facility], in scan documents* [facility] Miscellaneous Notes* Telephone Encounter - Ericka Nettles - 07/19/2023 9:30 AM EDT Patient recently had surgery and is in pain. She will call back at a later time to schedule OV. NAYANA PT. Annual F/up - Internal carotid artery stenosis, bilateral * US DUP at [facility], in scan documents* documented in this encounterProvidence Hospital06-03-2024 Telephone encounter Note * Telephone Encounter - Yasmeen William LPN - 07/18/2023 2:06 PM EDT Date/Time: 07/18/2023 2:06 PM Spoke with Domi patient @ phone #: [phone] - Preferred # for contact: [phone] Have you received help from a home care company in the last 60 days? No. Are you agreeable to [facility] services? Yes. What address will we be seeing you at? [address] [facility] [address] Do you have any upcoming appointments or things we need to schedule around? No. Do you have a teachable CG or can you manage your care independently? Jt, spouse. [facility] Work Phone: [phone] 541-761606-03-2024 Miscellaneous Notes* Telephone Encounter - Yasmeen William LPN - 07/18/2023 2:06 PM EDT Date/Time: 07/18/2023 2:06 PM Spoke with Domi, patient @ phone #: [phone] - Preferred # for contact: [phone] Have you received help from a home care company in the last 60 days? No. Are you agreeable to [facility] services? Yes. What address will we be seeing you at? [address] [place] [address] Do you have any upcoming appointments or things we need to schedule around? No. Do you have a teachable CG or can you manage your care independently? Jt, spouse. documented in this encounterProvidence Hospital05-24-2024 Telephone encounter Note * Telephone Encounter - Jenn Wilhelm - 07/08/2023 3:11 PM EDT The patient is scheduled for CABG, MAZE, RANDOLPH Clip on 07/12/23 at 9 am Pt is in house. [facility]05-24-[facility] Miscellaneous Notes* Telephone Encounter - Jenn Wilhelm - 07/08/2023 3:11 PM EDT The patient is scheduled for CABG, MAZE, RANDOLPH Clip on 07/12/23 at 9 am Pt is in house. documented in this encounterProvidence Hospital05-20-2024 Telephone encounter Note * Telephone Encounter - Amarilis Muñoz - 07/04/2023 2:46 PM EDT Spoke with pt she was admitted at [facility]. Patient stated she will call and schedule when things are less chaotic for her. Schedule with on Annual F/UP for Internal carotid artery stenosis, bilateral, Hx of right-sided carotid endarterectomy with US CAROTID BILAT *CB* [facility] Miscellaneous Notes* Telephone Encounter - Amarilis Muñoz - 07/04/2023 2:46 PM EDT Spoke with pt she was admitted at [facility]. Patient stated she will call and schedule when things are less chaotic for her. Schedule with TONIA on Annual F/UP for Internal carotid artery stenosis, bilateral, Hx of right-sided carotid endarterectomy with US CAROTID BILAT *CB* documented in this encounterProvidence Hospital05-07-2024 Telephone encounter Note * Telephone Encounter - Dianna Bender - 06/21/2023 9:13 AM EDT Pt called to schedule appt. She said she had her US completed at [facility] and her primary caresaid her testing was bad and she needed to be seen. Pt to call [place] and get images and report sent over. Fax number was provided and Pt said she will call back to update our office. If needed we can contact [place] for images. Annual f/up - Internal carotid artery stenosis, bilateral; Hx of right-sided carotid endarterectomy; Chronic venous insufficiency; Leg swelling (Carotid US prior) [facility] Miscellaneous Notes* Telephone Encounter - Dianna Bender - 06/21/2023 9:13 AM EDT Pt called to schedule appt. She said she had her US completed at [facility] and her primary caresaid her testing was bad and she needed to be seen. Pt to call [place] and get images and report sent over. Fax number was provided and Pt said she will call back to update our office. If needed we can contact [place] for images. Annual f/up - Internal carotid artery stenosis, bilateral; Hx of right-sided carotid endarterectomy; Chronic venous insufficiency; Leg swelling (Carotid US prior) documented in this encounterProvidence Hospital04-29-2024 Note* Exam Date Time Procedure Performing Provider Status 06/13/23 3:02 PM VL Carotid US/Dopple r Complete - CV Auth (Verified) [facility] 08-01-2023 Note ORIGINAL EXAMINATION: BONE DENSITOMETRY 09/14/2022 3:11 pm TECHNIQUE: A bone density dual x-ray absorptiometry (DEXA) scan was performed of the left forearm and left hip. COMPARISON: 09/29/2018. HISTORY: ORDERING SYSTEM PROVIDED HISTORY: Reason for Exam: Osteoporosis Screening FINDINGS: BMD (g/cm2) 1/3 left forearm: 0.510. T Score 1/3 left forearm: -3.0 BMD (g/cm2) Left Femoral Neck: 0.563. T Score Left Femoral Neck: -2.6 BMD (g/cm2) Left Hip: 0.808. T Score Left Hip: -1.1 BMD Change from previous Hip: 1.1% Postmenopausal women and men at least 50 years old with osteopenic BMD warrant pharmacologic treatment if they have a FRAX-calculated 10-year probability of at least 3% for hip fracture or at least 20% for major osteoporotic fracture. Other situations known to alter the reliability of the FRAX score should be considered when making treatment decisions, including chronic glucocorticoid use and past treatments. IMPRESSION: Osteoporosis by WHO criteria. *By the World Health Organization criteria: (Comparing with young normal sex matched population) - Normal: T-score at or above -1 SD (standard deviation) - Osteopenia: T-score between -1 and -2.5 SD - Osteoporosis: T-score at or below -2.5 SD I have personally reviewed the images of this examination and agree with the resident's findings and interpretation. Interpreted by: Mallika Love Preliminary Report By: Giorgio Parada Electronically signed By Mallika Love Dictated Date: 09/14/2022 3:22:28 PM Prelim Date: 09/14/2022 3:40:34 PM Sign Date: 09/14/2022 3:40:34 PM Ordering Provider: Counts include [facility] beds at the [facility]07-11-2023 Miscellaneous Notes* Telephone Encounter - Betsy Lopez Cma - 08/24/2022 2:44 PM EDT August 24, 2022 2:44 PM Called patient to schedule appointment no answer, left message on machine to call to schedule. Betsy Lopez Cma documented in this encounterProvidence Hospital07-05-2023 History of Present illness Narrative* Ame Machado APRN.[facility] - 08/18/2022 1:15 PM EDT CHIEF COMPLAINT: Carotid stenosis HISTORY OF PRESENT ILLNESS: Ms. Snell is a 71 year old female who is seen today for follow-up evaluation of bilateral carotid stenosis. Patient previously followed with Dr. Tsang (R CEA 2002), and established care with Dr. Aaron following his long term. She has a history of asymptomatic bilateral carotid stenosis. Duplex in 2021 demonstrating right ICA 0-29% and left ICA 40-59% (per Dr. Aaron's read). Patient denies symptoms of TIA, amaurosis or stroke. Takes plavix and statin daily (previously on asa as well but was having too much bruising). No anticoagulation. Repeat carotid duplex on 08/02/2022 demonstrating right carotid stenosis 0-29% and left carotid stenosis 40-59% - stable. Pt also reports concern with ongoing, though intermittent, swelling in BLE. Her LLE swells more so that the RLE. She has compression stockings, but she does not wear them regularly. Elevates legs when needed. Recently, more swelling in LLE. No weeping or ulceration. Take daily furosemide. Does not weigh herself regularly. PAST MEDICAL HISTORY Diagnosis Date CAD (coronary artery disease) Carotid bruit left Carotid stenosis, bilateral Depressive disorder GERD (gastroesophageal reflux disease) HTN (hypertension) Hyperlipidemia Kidney stones ERICKA (obstructive sleep apnea) TIA (transient ischemic attack) PAST SURGICAL HISTORY Procedure Laterality Date ARTHROSCOPY, SHOULDER, SURGI 09/11/2018 BREAST BIOPSY CARDIAC CATH 07/12/2018 [facility] with stenting CHOLECYSTECTOMY HYSTERECTOMY URETEROSCOPY W/ BIOPSY 12/18/2004 SOCIAL HISTORY: Social History Tobacco Use Smoking status: Former Types: Cigarettes Quit date: 08/26/2017 Years since quittin.9 Smokeless tobacco: Never Vaping Use Vaping Use: Never used Substance Use Topics Alcohol use: Not Currently Drug use: Never FAMILY HISTORY Problem Relation Age of Onset Diabetes Mother Hypertension Mother Hyperlipidemia Mother Cancer Father Hypertension Father Hyperlipidemia Father Stroke Father Stroke Sister Hypertension Sister MEDICATIONS: multivitamin (VITAMIN DAILY ORAL) Take by mouth. Patient reports taking one Vitamin D capsule by mouth, 1 (one) time a week. DULoxetine (CYMBALTA) 20 mg capsule Take 20 mg by mouth once daily. Patient reports taking duloxetine HCL DR (Cymbalta) 1 (one) capsule by mouth, daily. CPAP daily at bedtime. amLODIPine (NORVASC) 10 mg tablet Take 10 mg by mouth once daily. furosemide (LASIX) 20 mg tablet Take 20 mg by mouth once daily. isosorbide mononitrate ER (IMDUR) 60 mg 24 hr tablet Take 60 mg by mouth once daily. atorvastatin (LIPITOR) 80 mg tablet Take 80 mg by mouth once daily. nitroglycerin sublingual (NITROQUICK) 0.4 mg SL tablet Dissolve 0.4 mg under the tongue every 5 minutes as needed. omeprazole (PRILOSEC) 40 mg capsule Take 40 mg by mouth once daily. clopidogrel (PLAVIX) 75 mg tablet Take 75 mg by mouth once daily. potassium chloride (K-TAB) 10 mEq tablet Take 10 mEq by mouth once daily. triamcinolone acetonide topical 0.5 % ointment Apply to affected area twice daily. (Patient not taking: Reported on 09/10/2020 ) hydrOXYzine pamoate (VISTARIL) 25 mg capsule Take 25 mg by mouth three times daily as needed. (Patient not taking: Reported on 09/10/2020 ) ALLERGIES: ALLERGIES Allergen Reactions Doxycycline Unknown Metoprolol Unknown Oxycodone Unknown PHYSICAL EXAM: VITALS: BP 124/62 Pulse 83 Ht 5' 0[Patient reports.[ (1.52m) Wt 193 lb 12.8 oz (87.9kg) SpO2 97% BMI 37.85 kg/(m^2). General: Alert and oriented, No acute distress HEENT: NC/AT. EOMI. Hearing is adequate. No carotid bruit Cardiovascular: Pulse regular. No rub or gallop. Lungs: Breathing is easy and unlabored Extremities: No chronic skin changes, no ulceration. +Edema in BLE, L > R. No visible or palpable varicosities. Neurological: Normal cognition and motor skills. No weakness or sensory deficit. Vascular: bilateral radial palpable, popliteal palpable, pedal pulses palp Diagnostic tests reviewed for today's visit: Carotid duplex 2022, 2021, and 2020 IMPRESSION: Ms. Snell is a 71 year old female with stable, asymptomatic bilateral carotid stenosis. Pt also reports ongoing swelling in BLE, L > R. Has compression but does not wear routinely. Palpable pedal pulses B. Discussed that we could proceed with further evaluation of her venous disease,and pt would like to proceed; Will follow-up with Dr. Aaron [facility] for testing and review. PLAN and RECOMMENDATIONS: - continue best medical therapy with plavix and statin - follow up in 1 year with repeat carotid duplex prior to visit The patient is currently taking a statin: Yes The patient is currently taking aspirin: No. Reason: Plavix I spent a total of 30 minutes on the date of the service which included preparing to see the patient, [id number] patient care, completing clinical documentation, obtaining and/or reviewing separately obtained history, performing a medically appropriate examination, counseling and educating the pat ient/family/caregiver, ordering medications, tests, or procedures, communicating with other HCPs (not separately reported), independently interpreting results (not separately reported), communicatingresults to the patient/family/caregiver, and care coordination (not separately reported). Ame Machado APRN.[facility] documented in this encounterProvidence Hospital01-10-2023 Evaluation + Plan note Diagnostic Tests Pending * Antinuclear Antibody Screen, Serum 02/23/22 * MARINA (serum) 02/23/22 Future Scheduled Tests Laboratory* B Type Natriuretic Peptide 10/06/21 * Basic Metabolic Panel 03/09/22 [facility] 08-23-2022 Evaluation + Plan note Future Scheduled Tests Laboratory* B Type Natriuretic Peptide 10/06/21 [facility] 06-17-2022 History of Present illness Narrative* Inocencia Aaron DO - 07/31/2021 4:00 PM EDT Images from the original note were not included. [facility] [place] DEPARTMENT OF VASCULAR SURGERY OUTPATIENT VISIT DATE August 11, 2021 OUTPATIENT VISIT TYPE CONSULTATION SERVICE DATE: 07/31/2021 SERVICE TIME: 4:00 PM PRIMARY CARE PHYSICIAN: Leonor Orellana CNP, [facility] REFERRING PROVIDER: Leonor Orellana CNP [address] [place] [id number] Consult requested for an opinion regarding the evaluation and treatment of the above. My final impression and recommendations will be communicated back to the requesting physician by way of the shared medical record or letter via [place] mail. CHIEF COMPLAINT: carotid stenosis HISTORY OF PRESENT ILLNESS: Vascular consultation at the request of Dr. Leonor Orellana. A copy of this consultation note will be provided to the requesting physician by way of shared Medical record or letter to requesting physician via US mail. Ms. Snell is a 70 year old female who is seen today for evaluation of bilateral carotid stenosis. Patient is new to me but previously followed with Dr. Tsang. Has a history of asymptomatic bilateral carotid stenosis. Duplex in emonstrating right ICA 0-29% and left ICA 40-59%. Patient deniessymptoms of TIA, amaurosis or stroke. Takes aspirin, plavix, and statin daily. No anticoagulation. Repeat carotid duplex on 07/21/2021 demonstrating bilateral carotid stenosis 0-29% however on the leftthe PSV is 130 at the origin and I think the stenosis is closer to 40-59%. PAST MEDICAL HISTORY Diagnosis Date CAD (coronary artery disease) Carotid bruit left Carotid stenosis, bilateral Depressive disorder GERD (gastroesophageal reflux disease) HTN (hypertension) Hyperlipidemia Kidney stones ERICKA (obstructive sleep apnea) TIA (transient ischemic attack) PAST SURGICAL HISTORY Procedure Laterality Date ARTHROSCOPY, SHOULDER, SURGI 09/11/2018 BREAST BIOPSY CARDIAC CATH 07/12/2018 [facility] with stenting CHOLECYSTECTOMY HYSTERECTOMY URETEROSCOPY W/ BIOPSY 12/18/2004 SOCIAL HISTORY: Social History Tobacco Use Smoking status: Former Smoker Types: Cigarettes Quit date: 08/26/2017 Years since quittin.9 Smokeless tobacco: Never Used Vaping Use Vaping Use: Never used Substance Use Topics Alcohol use: Not Currently Drug use: Never FAMILY HISTORY Problem Relation Age of Onset Diabetes Mother Hypertension Mother Hyperlipidemia Mother Cancer Father Hypertension Father Hyperlipidemia Father Stroke Father Stroke Sister Hypertension Sister MEDICATIONS: CPAP daily at bedtime. amLODIPine (NORVASC) 10 mg tablet Take 10 mg by mouth once daily. aspirin, enteric coated (ASPIRIN, ENTERIC COATED) 81 mg EC tablet Take 81 mg by mouth once daily. furosemide (LASIX) 20 mg tablet Take 20 mg by mouth once daily. isosorbide mononitrate ER (IMDUR) 60 mg 24 hr tablet Take 60 mg by mouth once daily. atorvastatin (LIPITOR) 80 mg tablet Take 80 mg by mouth once daily. nitroglycerin sublingual (NITROSTAT) 0.4 mg SL tablet Dissolve 0.4 mg under the tongue every 5 minutes as needed. omeprazole (PRILOSEC) 40 mg capsule Take 40 mg by mouth once daily. clopidogrel (PLAVIX) 75 mg tablet Take 75 mg by mouth once daily. potassium chloride (K-TAB) 10 mEq tablet Take 10 mEq by mouth once daily. sertraline (ZOLOFT) 100 mg tablet Take 150 mg by mouth once daily. 1.5 tablets daily rOPINIRole (REQUIP) 0.5 mg tablet Take 0.5 mg by mouth three times daily. triamcinolone acetonide topical 0.5 % ointment Apply to affected area twice daily. hydrOXYzine pamoate (VISTARIL) 25 mg capsule Take 25 mg by mouth three times daily as needed. ALLERGIES: ALLERGIES Allergen Reactions Doxycycline Unknown Metoprolol Unknown Oxycodone Unknown REVIEW OF SYSTEM: Constitutional: No weight loss, malaise or fevers. Respiratory: Negative for SOB Cardiovascular: Negative for chest pain or recent PR Gatrointestinal: Negative for abdominal discomfort Genitourinary: Negative for CKD Musculoskeletal: Negative for joint pain or swelling, back pain or muscle pain Endocrine: Negative for DM Hematology/Lymphatic: No bleeding or clotting disorders Neurologic: Negative for stroke Integumentary: Negative for wounds PHYSICAL EXAM: VITALS: BP 102/62 Pulse 75 Ht 5' 0 (1.52m) Wt 187 lb (84.8kg) SpO2 97% BMI 36.52 kg/(m^2). General: Alert and oriented, No acute distress HEENT: EOMI, No carotid bruit Cardiovascular: Pulse regular. Lungs: Normal breath sounds, no wheezes. Abdomen: Soft, non-tender. Extremities: No edema, no chronic skin changes, no ulceration Neurological: Normal cognition and motor skills. No weakness or sensory deficit. Vascular: bilateral radial palpable, femoral palpable, popliteal palpable, pedal pulses palp Diagnostic tests reviewed for today's visit: Carotid duplex 2021 and 2020 IMPRESSION: Ms. Snell is a 70 year old female With stable asymptomatic bilateral carotid stenosis. PLAN and RECOMMENDATIONS: - continue best medical therapy with aspirin/plavix and statin - follow up in 1 year with repeat carotid duplex prior to visit Medical Decision Making I spent a total of 45 minutes on the date of the service which included preparing to see the patient, [id number] patient care, completing clinical documentation, obtaining and/or reviewing separately obtained history, performing a medically appropriate examination, counseling and educating the pat ient/family/caregiver, communicating with other HCPs (not separately reported), independently interpreting results (not separately reported) and communicating results to the patient/family/caregiver. SIGNATURE: Inocencia Aaron DO PATIENT NAME: Domi Snell DATE: August 11, 2021 TIME: 4:00 PM [facility] Instructions* Patient Instructions* Inocencia Aaron DO - 07/31/2021 3:11 PM EDT Information on Stroke: 1. F.A.S.T: F - Facial Droop A - Arms: Raise both arms, one arm will drift downward S - Speech: Slurred or strange sounds when speaking T - Time: Call 911 immediately 2. If you have new or worsening stroke symptoms: Call 911 3. Examples of symptoms: A. Sudden weakness or numbness B. Sudden difficulty seeing C. Sudden confusion or slurred speech D. Sudden problems with balance, coordination E. Sudden severe headache, with no known cause F. Difficulty swallowing 4. Know your personal risks for stroke: Age, sex, race, family history, high cholesterol, alcohol intake, weight, inactive lifestyle, carotid or coronary artery disease. 5. Can you make changes in your personal risks? How? 6. Know what medications you are taking to avoid another stroke. [facility] Nurse Note* Prema Silveira MA - 07/31/2021 2:58 PM EDT No complaints today. Prema Silveira MA documented in this [facility]05-04-2022 Miscellaneous Notes* Telephone Encounter - Amarilis Muñoz - 06/17/2021 12:45 PM EDT LMOM to schedule US Carotid New Patient Annual F/UP for Asymptomatic Bilateral Carotid Artery Stenosis, Chronic venous insufficiencywith US CAROTID BILAT PRIOR documented in this [facility]10-13[facility] Evaluation + Plan note Future Scheduled Tests Laboratory* Lipid Profile 08/12/21 * Complete Metabolic Panel 08/12/21 Radiology* XR Chest 2 Views (PA & Lateral) 11/26/20 * XR Spine Lumbar AP/LAT 11/27/20 [facility] 07-28-2021 History of Present illness Narrative* Eleazar Tsang MD - 09/10/2020 11:23 AM EDT Patient seen back today in assessment evaluation of their carotid artery disease. They really have had no new signs or symptoms of carotid artery symptomatology. She has had no TIA or strokelike symptomatology. She has had no true amaurosis fugax and she denies any episodes of arm or leg or facial w eakness or numbness. She does state that when she covers her right eye and looks through her left eye she seems to have blurred and cloudy vision. 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 Her carotid duplex shows that she has about 20 to 30% stenosis on the right and about 50% stenosis on the left. She really only has a peak systolic velocity of 130 on that left side and this is not much different than it was a year ago. Overall she seems to be stable with regard to her carotid artery disease is on an aspirin and a statin agent on a daily basis. The patient does complain of some left leg swelling and then when I look at it in the office it does appear somewhat swollen compared to the right. I did review prior to seeing the patient in a venous duplex of the has been performed that shows no evidence of deep vein thrombosis. On examination today the edema is nonpitting and she has palpable pulses at the dorsal pedal and posterior tibial areas. I tell her that this is most likely some mild chronic venous insufficiency and the best treatment for this is compression and I recommend that she get [id number] compression stockings and begin to wear these. Overall the plan for this patient is going to be to follow-up with her in 1 year after repeat carotid duplex has been performed. This note was generated with [employer] dictation software. It may contain incorrect words, spelling, and punctuation and that were not noted in review of the chart prior to signing. I spent 15 minutes in the visit, with more than 50% of the total [id number] time of the visit in counseling / coordination of care. The patient is currently taking a statin: Yes The patient is currently taking aspirin: Yes [facility] Evaluation note* Diagnosis Onset Date Resolution Status Carotid artery disease chron ic History of coronary artery stent placement May 29th, 2 019 chronic Hyperlipidemia chronic Hypertension [facility] Work Phone: Evaluation + Plan note Future Appointments Appointment Date:11/27/2020 03:30:00 PM Scheduled Provider:LEONOR ORELLANA Location:[facility] Appointment Type:PC OV Appointment Date:02/11/2021 10:30:00 AM Scheduled Provider:LEONOR ORELLANA Location:[facility] Appointment Type:PC OV Diagnostic Tests Pending * Antinuclear Antibody Screen, Serum 11/26/20 Future Scheduled Tests Laboratory* Lipid Profile 02/12/21 * Complete Metabolic Panel 02/12/21 Radiology* XR Chest 2 Views (PA & Lateral) 11/26/20 [facility] Evaluation + Plan note Future Appointments Appointment Date:12/08/2020 01:00:00 PM Scheduled Provider: Location:[facility] Appointment Type:[place] Appointment Date:12/10/2020 01:00:00 PM Scheduled Provider: Location:[facility] Appointment Type:PT Treatment [place] Appointment Date:12/15/2020 01:00:00 PM Scheduled Provider: Location:[facility] Appointment Type:PT Treatment [place] Appointment Date:12/17/2020 01:00:00 PM Scheduled Provider: Location:[facility] Appointment Type:PT Treatment - [place] Appointment Date:12/22/2020 01:00:00 PM Scheduled Provider: Location:[facility] Appointment Type:PT Treatment - [place] Appointment Date:12/24/2020 01:00:00 PM Scheduled Provider: Location:[facility] Appointment Type:PT Treatment - [place] Appointment Date:12/29/2020 01:00:00 PM Scheduled Provider: Location:[facility] Appointment Type:PT Treatment - [place] Appointment Date:01/01/2021 01:00:00 PM Scheduled Provider: Location:[facility] Appointment Type:PT Treatment - [place] Appointment Date:02/11/2021 10:30:00 AM Scheduled Provider:LEONOR ORELLANA Location:[facility] Appointment Type:PC OV Future Scheduled Tests Laboratory* Lipid Profile 02/12/21 * Complete Metabolic Panel 02/12/21 Radiology* XR Chest 2 Views (PA & Lateral) 11/26/20 * XR Spine Lumbar AP/LAT 11/27/20 * MA Mammo Screening Bilateral w/ Atilio 11/27/20 [facility] Evaluation + Plan note Future Appointments Appointment Date:02/11/2021 10:30:00 AM Scheduled Provider:LEONOR ORELLANA Location:[facility] Appointment Type:PC OV Appointment Date:03/09/2021 10:45:00 AM Scheduled Provider: Location:[facility] Appointment Type:MA Mammogram Screening Bilateral w/ Atilio Future Scheduled Tests Laboratory* Lipid Profile 02/12/21 * Complete Metabolic Panel 02/12/21 Radiology* XR Chest 2 Views (PA & Lateral) 11/26/20 * XR Spine Lumbar AP/LAT 11/27/20 * MA Mammo Screening Bilateral w/ Atilio 03/09/21 [facility] Evaluation + Plan note Future Appointments Appointment Date:02/11/2021 10:30:00 AM Scheduled Provider:LEONOR ORELLANA Location:[facility] Appointment Type:PC OV Appointment Date:03/09/2021 10:45:00 AM Scheduled Provider: Location:[facility] Appointment Type:MA Mammogram Screening Bilateral w/ Atilio Future Scheduled Tests Radiology* XR Chest 2 Views (PA & Lateral) 11/26/20 * XR Spine Lumbar AP/LAT 11/27/20 * MA Mammo Screening Bilateral w/ Atilio 03/09/21 [facility] Evaluation + Plan note Future Appointments Appointment Date:08/11/2021 11:00:00 AM Scheduled Provider:LEONOR ORELLANA Location:[facility] Appointment Type:PC OV Future Scheduled Tests Laboratory* Lipid Profile 08/12/21 * Lipid Profile 08/12/21 * Complete Metabolic Panel 08/12/21 * Complete Metabolic Panel 08/12/21 Radiology* XR Chest 2 Views (PA & Lateral) 11/26/20 * XR Spine Lumbar AP/LAT 11/27/20 [facility] Evaluation + Plan note Future Appointments Appointment Date:08/11/2021 11:00:00 AM Scheduled Provider:LEONOR ORELLANA Location:[facility] Appointment Type:PC OV Future Scheduled Tests Laboratory* Lipid Profile 08/12/21 * Lipid Profile 08/12/21 * Complete Metabolic Panel 08/12/21 * Complete Metabolic Panel 08/12/21 Radiology* XR Chest 2 Views (PA & Lateral) 11/26/20 * XR Spine Lumbar AP/LAT 11/27/20 [facility] Evaluation + Plan note Future Appointments Appointment Date:10/27/2021 10:30:00 AM Scheduled Provider:[facility]RELLANA [facility] Type[facility] Follow Up Future Scheduled Tests Laboratory* Lipid Profile 08/12/21 * Complete Metabolic Panel 08/12/21 Radiology* XR Chest 2 Views (PA & Lateral) 11/26/20 * XR Spine Lumbar AP/LAT 11/27/20 [facility] Evaluation + Plan note Future Appointments Appointment Date:10/27/2021 10:30:00 AM Scheduled Provider:LEONOR ORELLANA [facility] Type:PC OV Follow Up Appointment Date:11/02/2021 11:00:00 AM Scheduled Provider: Location:[facility] Appointment Type:CV Procedure - AOH Echo Future Scheduled Tests Laboratory* B Type Natriuretic Peptide 10/06/21 Radiology* XR Chest 2 Views (PA & Lateral) 11/26/20 * XR Spine Lumbar AP/LAT 11/27/20 [facility] Evaluation + Plan note Future Appointments Appointment Date:11/24/2021 10:30:00 AM Scheduled Provider:LEONOR ORELLANA [facility] Type:PC OV Pre Op Future Scheduled Tests Laboratory* B Type Natriuretic Peptide 10/06/21 Radiology* XR Chest 2 Views (PA & Lateral) 11/26/20 * XR Spine Lumbar AP/LAT 11/27/20 [facility] Evaluation + Plan note Future Appointments Appointment Date:02/23/2022 10:30:00 AM Scheduled Provider:LEONOR ORELLANA Location:[facility] Appointment Type:PC OV Future Scheduled Tests Laboratory* B Type Natriuretic Peptide 10/06/21 [facility] Evaluation + Plan note Future Appointments Appointment Date:11/16/2022 11:00:00 AM Scheduled Provider:LEONOR ORELLANA Location:[facility] Appointment Type:PC OV Future Scheduled Tests Laboratory* B Type Natriuretic Peptide 10/06/21 * Basic Metabolic Panel 09/08/22 * Lipid Profile 08/31/22 * Vitamin D Level 08/31/22 [facility] Evaluation + Plan note Future Appointments Appointment Date:03/22/2023 11:00:00 AM Scheduled Provider:LEONOR ORELLANA Location:[facility] Appointment Type:PC OV Future Scheduled Tests Radiology* XR Ribs 2 Views Right/PA Chest (AO) 10/02/22 [facility] Evaluation + Plan note Future Appointments Appointment Date:03/22/2023 11:00:00 AM Scheduled Provider:LEONOR ORELLANA Location:[facility] Appointment Type:PC OV Future Scheduled Tests Laboratory* Basic Metabolic Panel 11/30/22 Radiology* XR Ribs 2 Views Right/PA Chest (AO) 10/02/22 [facility] Evaluation + Plan note Future Appointments Appointment Date:07/04/2023 10:30:00 AM Scheduled Provider:LEONOR ORELLANA Location:[facility] Appointment Type:PC OV Appointment Date:09/20/2023 11:00:00 AM Scheduled Provider:LEONOR ORELLANA Location:[facility] Appointment Type:PC Wellness Medicare Future Scheduled Tests Laboratory* Basic Metabolic Panel 11/30/22 * Complete Blood Count 09/20/23 * Albumin/Creatinine Ratio, Random Urine 03/22/23 * Complete Metabolic Panel 09/20/23 Radiology* XR Ribs 2 Views Right/PA Chest (AO) 10/02/22 [facility] [employer] + Plan note Future Appointments Appointment Date:08/30/2023 09:00:00 AM Scheduled Provider: Location:[facility] Appointment Type:PF PFT Appointment Date:09/20/2023 11:00:00 AM Scheduled Provider:LEONOR ORELLANA Location:[facility] Appointment Type:PC Wellness Medicare Future Scheduled Tests Laboratory* Basic Metabolic Panel 11/30/22 * Albumin/Creatinine Ratio, Random Urine 03/22/23 Radiology* XR Ribs 2 Views Right/PA Chest (AO) 10/02/22 [facility] [employer] + Plan note Future Appointments Appointment Date:09/20/2023 11:00:00 AM Scheduled Provider:LEONOR ORELLANA Location:[facility] Appointment Type:PC Wellness Medicare Future Scheduled Tests Laboratory* Basic Metabolic Panel 11/30/22 * Albumin/Creatinine Ratio, Random Urine 03/22/23 Radiology* XR Ribs 2 Views Right/PA Chest (AO) 10/02/22 [facility] [employer] + Plan note Future Appointments Appointment Date:12/21/2023 11:00:00 AM Scheduled Provider:LEONOR ORELLANA Location:[facility] Appointment Type:PC OV Future Scheduled Tests Laboratory* Albumin/Creatinine Ratio, Random Urine 03/22/23 Radiology* MA Mammo Screening Bilateral w/ Atilio 09/20/23 [facility] [employer] + Plan note Future Appointments Appointment Date:04/18/2024 11:00:00 AM Scheduled Provider:LEONOR ORELLANA Location:[facility] Appointment Type:PC OV Future Scheduled Tests Laboratory* Potassium Level 12/21/23 * A1C Hemoglobin 04/19/24 * Lipid Profile 04/19/24 * Albumin/Creatinine Ratio, Random Urine 03/22/23 * Vitamin D Level 04/19/24 * Complete Metabolic Panel 04/19/24 Radiology* MA Mammo Screening Bilateral w/ Atilio 09/20/23 [facility] Evaluation + Plan note Future Appointments Appointment Date:04/18/2024 11:00:00 AM Scheduled Provider:LEONOR ORELLANA Location:[facility] Appointment Type:PC OV Future Scheduled Tests Laboratory* Potassium Level 12/21/23 Radiology* MA Mammo Screening Bilateral w/ Atilio 09/20/23 [facility] Evaluation + Plan note Future Appointments Appointment Date:07/18/2024 11:30:00 AM Scheduled Provider:LEONOR ORELLANA Location:[facility] Appointment Type:PC OV Follow Up Future Scheduled Tests Laboratory* TSH with Reflex to FT4 04/18/24 * Potassium Level 12/21/23 * Vitamin B12 Level 04/18/24 * Complete Blood Count 04/18/24 * Albumin/Creatinine Ratio, Random Urine 07/19/24 Radiology* MA Mammo Screening Bilateral w/ Atilio 09/20/23 [facility] Evaluation + Plan note Future Appointments Appointment Date:01/21/2025 11:30:00 AM Scheduled Provider:LEONOR ORELLANA Location:[facility] Appointment Type:PC OV Lab Check Future Scheduled Tests Laboratory* TSH with Reflex to FT4 04/18/24 * Potassium Level 12/21/23 * Vitamin B12 Level 04/18/24 * A1C Hemoglobin 01/16/25 * Complete Blood Count 04/18/24 * Lipid Profile 01/16/25 * Albumin/Creatinine Ratio, Random Urine 01/16/25 * Albumin/Creatinine Ratio, Random Urine 07/19/24 * Vitamin D Level 01/16/25 * Complete Metabolic Panel 01/16/25 [facility] evaluation note* Diagnosis Asymptomatic bilateral carotid artery stenosis- Primary Occlusion and stenosis of carotid artery without mention of cerebral infarction Chronic venous insufficiency Unspecified venous (peripheral) insufficiency [facility] Diagnosis Asymptomatic bilateral carotid artery stenosis Occlusion and stenosis of carotid artery without mention of cerebral infarction [facility]* Diagnosis Carotid stenosis, asymptomatic, bilateral- Primary documented in this encounter [facility] note* Diagnosis Onset Date Resolution Status Obesity chronic ERICKA (obstructive sleep apnea) chronic Nicotine dependence, cigarettes, in remission acute ERICKA (obstructive sleep apnea) chronic [facility] Work Phone: Evaluation note* Diagnosis Internal carotid artery stenosis, bilateral- Primary History of right-sided carotid endarterectomy Chronic venous insufficiency Unspecified venous (peripheral) insufficiency Leg swelling Swelling of limb documented in this encounter [facility] note* Diagnosis Onset Date Resolution Status GERD (gastroesophageal reflux disease) chronic Nicotine dependence in remission chronic Obesity chronic ERICKA (obstructive sleep apnea) chronic [facility] Work Phone: Evaluation note* Diagnosis Onset Date Resolution Status GERD (gastroesophageal reflux disease) chronic Nicotine dependence in remission chronic Obesity chronic ERICKA (obstructive sleep apnea) chronic Chronic cough chronic Nicotine dependence in remission chronic Obesity chronic ERICKA (obstructive sleep apnea) [facility] Work Phone: Evaluation note* Diagnosis Onset Date Resolution Status GERD (gastroesophageal reflux disease) chronic Nicotine dependence in remission chronic Obesity chronic ERICKA (obstructive sleep apnea) chronic Nicotine dependence in remission chronic Obesity chronic ERICKA (obstructive sleep apnea) chronic [facility] Work Phone: Evaluation note* Diagnosis Internal carotid artery stenosis, bilateral- Primary History of right-sided carotid endarterectomy documented in this encounter [facility] note* Diagnosis NSTEMI (non-ST elevated myocardial infarction) (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) documented in this encounter [facility] note* Diagnosis S/P CABG (coronary artery bypass graft) Postsurgical aortocoronary bypass status [facility]* Diagnosis S/P CABG (coronary artery bypass graft)- Primary Postsurgical aortocoronary bypass status Multiple vessel coronary artery disease Coronary atherosclerosis of unspecified type of vessel, chilkat or graft Hx of non-ST elevation myocardial infarction (NSTEMI) Old myocardial infarction Acute respiratory insufficiency, postoperative Other pulmonary insufficiency, not elsewhere classified, following trauma and surgery Pleural effusion, right Unspecified pleural effusion Paroxysmal atrial fibrillation (HCC) Atrial fibrillation S/P CABG (coronary artery bypass graft) Postsurgical aortocoronary bypass status [facility]* Diagnosis Bilateral carotid artery stenosis- Primary Occlusion and stenosis of carotid artery without mention of cerebral infarction History of right-sided carotid endarterectomy documented in this encounter [facility] note* Diagnosis Paroxysmal atrial fibrillation (HCC)- Primary Atrial fibrillation Coronary artery disease involving chilkat coronary artery of chilkat heart without angina pectoris Primary hypertension Unspecified essential hypertension Other hyperlipidemia S/P CABG x 3 Postsurgical aortocoronary bypass status H/O carotid endarterectomy Other postprocedural status ERICKA (obstructive sleep apnea) Obstructive sleep apnea (adult) (pediatric) Obesity, Class II, BMI 35-39.9 Obesity, unspecified [facility] Diagnosis Paroxysmal atrial fibrillation (HCC) Atrial fibrillation documented in this encounter [facility] note* Diagnosis Bilateral carotid artery stenosis Occlusion and stenosis of carotid artery without mention of cerebral infarction History of right-sided carotid endarterectomy [facility]* Diagnosis Carotid stenosis, asymptomatic, bilateral- Primary History of right-sided carotid endarterectomy documented in this encounter [facility] course Narrative No data available for this section [facility] Hospital Discharge instructions No data available for this section [facility] Patient's home Plan of care note* Visit Details Visit Type -SN SOC Discipline -Prison Problems Problem Description Start Date Status Goals Interve ntions Medication Education Disciplines: Skilled Services 07/19/2023 Active 1 goal linked to scheduled/documente d intervention 1 goal intervention scheduled/documente d in this visit Sepsis Disciplines: Skilled Services 07/19/2023 Active 1 goal linked to scheduled/documente d intervention 1 goal intervention scheduled/documente d in this visit Physician Specific Parameters Disciplines: Skilled Services 07/19/2023 Active 1 goal linked to scheduled/documente d intervention 1 goal intervention scheduled/documente d in this visit Risk for Falls Disciplines: Skilled Services 07/19/2023 Active 1 goal linked to scheduled/documente d intervention 1 goal intervention scheduled/documente d in this visit Pain Disciplines: Skilled Services 07/19/2023 Active 1 goal linked to scheduled/documente d intervention 1 goal intervention scheduled/documente d in this visit High Risk Medications Disciplines: Skilled Services 07/19/2023 Active 1 goal linked to scheduled/documente d intervention 2 goal interventions scheduled/documente d in this visit Discharge Disciplines: Skilled Services 07/19/2023 Active 1 goal linked to scheduled/documente d intervention 2 goal interventions scheduled/documente d in this visit Advance Directives Disciplines: Skilled Services 07/19/2023 Active 1 goal linked to scheduled/documente d intervention 1 goal intervention scheduled/documente d in this visit SN Edema Disciplines: 07/19/2023 Active 1 goal linked to scheduled/documente d intervention 1 goal intervention scheduled/documente d in this visit SN Cardiac Procedure/Surge ry Disciplines: 07/19/2023 Active 1 goal linked to scheduled/documente d intervention 1 goal intervention scheduled/documente d in this visit SN Integumentary/W ounds Disciplines: SN 07/19/2023 Active 1 goal linked to scheduled/documente d intervention 3 goal interventions scheduled/documente d in this visit SN Learning Assessment Disciplines: 07/19/2023 Active 1 goal linked to scheduled/documente d intervention 1 goal intervention scheduled/documente d in this visit Goals Goal Associated Problem Outcome Goal Met? Visit Notes Patient/caregiver will demonstrate ability to obtain, store, identify and administer ordered medications, keep accurate medication list in home, and adhere to medication schedule Description: Patient/caregiver will demonstrate ability to obtain, store, identify and administer ordered medications, keep accurate medication list in home, and adhere to medication schedule by 09/16/23. Medication Education No Patient/caregiver will be able to identify and report symptoms of sepsis Description: Patient/caregiver will be able to identify signs/symptoms of sepsis infection and will verbalize actions to take if suspected by 09/16/23. Sepsis No Patient to maintain parameters within physician-specified ranges throughout certification period Physician Specific Parameters No Manage Risk for falls Description: Patient/caregiver will verbalize knowledge of individualized fall prevention strategies by 09/16/23. Risk for Falls No Manage Pain Description: Patient/caregiver will verbalize knowledge and understanding of appropriate techniques to control pain, including non-pharmacological techniques. Patient will verbalize or demonstrate an acceptable level of pain as evidenced by a pain score of 0/10 and improvement in ability to perform activities of daily living to be achieved by 09/16/23. Pain No Patient/caregiver will teach back high risk medication side effect and precaution education Description: STG Patient/caregiver will verbalize understanding of high risk medication side effects and precautions to be achieved by 09/16/23. LTG Patient/caregiver will continue to verbalize understanding of high risk medication side effects and precautions throughout certification period. High Risk Medications No Manage discharge planning Description: Patient/caregiver will verbalize understanding of ongoing discharge plan provided related to disease management, arrangements for outpatient and/or community services, obtaining medications, supplies, and DME, as needed throughout certification period. Discharge No Patient/caregiver will make healthcare providers aware of and any changes to Advance Directives throughout certification period Advance Directives No Patient will have improved edema management Description: Patient/caregiver will demonstrate an understanding of edema management strategies as evidenced by resolution or stabilization of edema by 09/03/23. SN Edema No Patient will have an uncomplicated recovery post cardiac procedure/surgery Description: Patient/caregiver will demonstrate understanding of aftercare post cardiac procedure/surgery as evidenced by an uncomplicated recovery to be achieved by 09/03/23. SN Cardiac Procedure/Surgery No Patient/Caregiver will have improved healing and be free of signs and symptoms of complications Description: Patient/caregiver will verbalize management strategies to promote wound healing & prevent complications as evidenced by improved healing & no complications by 09/03/23. SN Integumentary/Wounds No Demonstrate understanding of education Description: Patient and/or caregiver will verbalize understanding of educational instruction provided throughout certification period. SN Learning Assessment No Interventions Intervention Associated Problem/Goal Status Variance Visit Notes Medication Education Description: Evaluate/instruct patient/caregiver on obtaining, storing, identifying and administering ordered medications as well as keeping accurate medication list in the home and adhereing to medication schedule Problem:Medication Education Goal:Patient/caregive r will demonstrate ability to obtain, store, identify and administer ordered medications, keep accurate medication list in home, and adhere to medication schedule Completed Patient instructed on importance of keeping accurate medication list in home, need to take up-to-date medication list to all medical provider appointments, adhering to medication schedule and proper storage of medications. Risk of Sepsis Description: Patient is at risk for sepsis. Monitor closely for s/s of sepsis. Problem:Sepsis Goal:Patient/caregive r will be able to identify and report symptoms of sepsis Completed SPO2 Description: Notify DrMariaelena and stop activity if pulse ox is <92% at rest. Problem:Physician Specific Parameters Goal:Patient to maintain parameters within physician-specified ranges throughout certification period Completed Instruct on individual fall risk factors and strategies to prevent falls and injuries caused by falls. Problem:Risk for Falls Goal:Manage Risk for falls Completed SN: Patient instructed on Eliminating Environmental Hazards: Keep pathways clear, Remove unsafe rugs and Move furniture from pathways Instruct on pain and instruct on strategies to control pain Problem:Pain Goal:Manage Pain Completed patient instructed on techniques to control pain including Non-Pharmacological measures; rest, positioning/elevation and mobility/therapeutic exercise. Opioids- educated on high risk medication Problem:High Risk Medications Goal:Patient/caregive r will teach back high risk medication side effect and precaution education Completed patient educated on taking medication(s) as prescribed by provider. Do not stop medication or alter doses without speaking with your provider. Discuss medication effectiveness or side effect concerns with your provider and home care team. Only take opioids as prescribed, do not share your medications, and take proper precautions in storing and properly disposing of opioids once no longer needed. Possible side effects of opioid medication including sedation, decreased rate of breathing, and constipation. Report over sedation to prescribing provider and practice deep breathing techniques every hour while awake. Prevent constipation by increasing water and fiber intake, increasing activity as tolerated, and use stool softener(s) as prescribed. Anticoagulant- educated on high risk medication Problem:High Risk Medications Goal:Patient/caregive r will teach back high risk medication side effect and precaution education Completed patient educated on anticoagulant medication elequis, plavix Take your medication as instructed and at the same time each day. Do not stop medication or alter doses without speaking with your provider. Discuss medication effectiveness or side effect concerns with your provider and home care team. Discuss all medications you are taking, even [id number] medicines, with your provider and pharmacist since many drugs can interact with anticoagulants. Tell anyone providing medical or dental care that you are taking an anticoagulant. DO NOT STOP your medication even for a minor procedure like dental work without first checking with the provider. If you forget to take a dose, DO NOT take a double dose. Take the missed dose as soon as possible on the same day. DO NOT take a double dose the next day to make up for the missed dose. Watch for signs of abnormal or excessive bleeding and bruising (refer to Bleeding Precautions education). Call your health care provider right away if you suspect something is wrong. Instruct on ongoing discharge plan Problem:Discharge Goal:Manage discharge planning Completed Ongoing Discharge plan: Discharge plan discussed with patient including frequency and duration for home SN and plan for transition to: live independently at home without ongoing services. Instruct on importance of follow-up appts and continued monitoring with medical provider &/or chronic care clinic Problem:Discharge Goal:Manage discharge planning Completed Education provided on importance of compliance with follow-up appointment(s). Recommendations: patient/caregiver to follow up with scheduling appointment(s) for post-acute/primary care provider/chronic care clinic Determine patient's Advance Directive Status Description: Patient does have advance directives. Patient's Advance Directives determined to be available in Home Healthcare DPOA. Problem:Advance Directives Goal:Patient/caregive r will make healthcare providers aware of and any changes to Advance Directives throughout certification period Completed Discussed Advance Directives with Patient and/or Caregiver. Referred patient to Home Care handbook for further information on Healthcare DPOA & Living Will. Assess and instruct on measures to reduce edema Problem:SN Edema Goal:Patient will have improved edema management Completed patient instructed on elevation, compression, ice, diet, medication compliance and benefits of activity. Assess/instruct aftercare cardiac procedure Description: Patient recently had CABG x 3. Problem:SN Cardiac Procedure/Surgery Goal:Patient will have an uncomplicated recovery post cardiac procedure/surgery Completed patient assessed and reinforced on keeping all incisions clean with mild soap and water and leave open to air, signs & symptoms of complications: infection such as fever of 101 or greater, chills, redness and/or drainage of incision site, nausea/vomiting, and/or malaise and cardiac complications such as headache, dizziness, light-headedness, SOB, heart palpitations, chest pain, or chest pressure, use of incentive spirometer, record daily weights, temperature, and BP, instruct heart health diet and fluid restrictions no more than 64-68 oz in 24 hours. Wound Care: Perform wound care (1) Description: Wound Care Order: Incision location: sternal Wound type (etiology): Incision Order: cleanse with soap and water- do nto scrub, leave MAGGY Frequency: daily and PRN Wound care to be completed by patient except for scheduled SN wound care visits. Measure wound/incision at least weekly. Okay to substitute comparable products from home care formulary. Problem:SN Integumentary/Wounds Goal:Patient/Caregive r will have improved healing and be free of signs and symptoms of complications Completed Completed by SN. Patient did tolerate well. Instruct patient/caregiver healing process and management measures to promote healing and avoid complications Problem:SN Integumentary/Wounds Goal:Patient/Caregive r will have improved healing and be free of signs and symptoms of complications Completed patient instructed on the following: healing process, signs and symptoms of infection, importance of good nutrition and when to report symptoms. Instruct Patient/Caregiver on wound/incision care procedure as ordered by physician Problem:SN Integumentary/Wounds Goal:Patient/Caregive r will have improved healing and be free of signs and symptoms of complications Completed patient instructed on wound care as ordered by Physician. Instruct and educate on knowledge deficits Problem:SN Learning Assessment Goal:Demonstrate understanding of education Completed patient verbalize and/or demonstrate understanding of nursing education completed today. Education methods include: verbal cues, written instructions and teach back. Further education required to improve knowledge and compliance with cardiac disease management, fall prevention/home safety strategies and nutrition. documented in this encounter [facility] home Plan of care note* Visit Details Visit Type -PT EVAL Discipline -Physical Therapy Problems Problem Description Start Date Status Goals Interve ntions Sepsis Disciplines: Skilled Services 07/19/2023 Active 1 goal linked to scheduled/documen patience intervention 1 goal intervention scheduled/document ed in this visit PT Referral Disciplines: Skilled Services 07/19/2023 Active 1 goal linked to scheduled/documen patience intervention 1 goal intervention scheduled/document ed in this visit Physician Specific Parameters Disciplines: Skilled Services 07/19/2023 Active 1 goal linked to scheduled/documen patience intervention 1 goal intervention scheduled/document ed in this visit Risk for Falls Disciplines: Skilled Services 07/19/2023 Active 1 goal linked to scheduled/documen patience intervention 1 goal intervention scheduled/document ed in this visit Pain Disciplines: Skilled Services 07/19/2023 Active 1 goal linked to scheduled/documen patience intervention 1 goal intervention scheduled/document ed in this visit PT Learning Assessment Disciplines: PT 07/21/2023 Active 1 goal linked to scheduled/documen patience intervention 1 goal intervention scheduled/document ed in this visit PT Cardiovascular Disease Disciplines: PT 07/21/2023 Active 1 goal linked to scheduled/documen patience intervention 1 goal intervention scheduled/document ed in this visit Goals Goal Associated Problem Outcome Goal Met? Visit Notes Patient/caregiver will be able to identify and report symptoms of sepsis Description: Patient/caregiver will be able to identify signs/symptoms of sepsis infection and will verbalize actions to take if suspected by 09/16/23. Sepsis No Patient will be referred to additional discipline as needed PT Referral No Patient to maintain parameters within physician-specified ranges throughout certification period Physician Specific Parameters No Manage Risk for falls Description: Patient/caregiver will verbalize knowledge of individualized fall prevention strategies by 09/16/23. Risk for Falls No Manage Pain Description: Patient/caregiver will verbalize knowledge and understanding of appropriate techniques to control pain, including non-pharmacological techniques. Patient will verbalize or demonstrate an acceptable level of pain as evidenced by a pain score of 0/10 and improvement in ability to perform activities of daily living to be achieved by 09/16/23. Pain No Demonstrate understanding of education Description: Patient and/or caregiver will understand educational instruction to be achieved by 08/20/23. . PT Learning Assessment No Manage Cardiac Interventions Description: Improve patient and/or caregiver understanding of post surgical and/or non-surgical cardiac intervention management as evidenced by patient and/or caregiver able to verbalize, demonstrate, and teach back instruction, to be achieved by 08/20/23. PT Cardiovascular Disease No Interventions Intervention Associated Problem/Goal Status Variance Visit Notes Risk of Sepsis Description: Patient is at risk for sepsis. Monitor closely for s/s of sepsis. Problem:Sepsis Goal:Patient/caregive r will be able to identify and report symptoms of sepsis Completed PT evaluation and treatment Description: Evaluate and treat for the assessment of functional deficits and establishment of appropriate interventions and education, including recommendations for functional mobility training, balance training for fall reduction, and strengthening. Problem:PT Referral Goal:Patient will be referred to additional discipline as needed Completed SPO2 Description: Notify and stop activity if pulse ox is <92% at rest. Problem:Physician Specific Parameters Goal:Patient to maintain parameters within physician-specified ranges throughout certification period Completed Instruct on individual fall risk factors and strategies to prevent falls and injuries caused by falls. Problem:Risk for Falls Goal:Manage Risk for falls Completed PT: Patient instructed on Eliminating Environmental Hazards: Keep pathways clear, Remove unsafe rugs, Move furniture from pathways, Keep rooms and walkways well lit and Wear supportive shoes or non-skid socks Managing Pain Instruct on pain and instruct on strategies to control pain Problem:Pain Goal:Manage Pain Completed patient instructed on techniques to control pain including Pharmacological measures and Non-Pharmacological measures; rest, positioning/elevation and use of thermal modalities, apply ice and heat to affected area . Instruct and educate on knowledge deficits Problem:PT Learning Assessment Goal:Demonstrate understanding of education Completed patient verbalize and/or demonstrate understanding of physical therapy education including cardiac disease management, surgical precautions, pain management, fall prevention strategies, home safety, functional activity and home exercise program. Education methods include: verbal cues and written instructions. Further education required to improve knowledge and compliance with cardiac disease management, surgical precautions, pain management, fall prevention strategies, home safety, functional activity and home exercise program. Instruct on self-management of post surgical and/or non-surgical cardiac intervention Problem:PT Cardiovascular Disease Goal:Manage Cardiac Interventions Completed patient instructed on post-op management of energy conservation, exercise and activity guidelines and weight tracking. Instructed on precautions/restricti ons including: not raising arms higher than 90 degrees, not lifting > 10 lbs, no riding in the front of the car, no weight bearing with arms during transfers, no driving, no air travel and use of pillow when coughing [facility] Visit Details Visit Type -SN ROUTINE Discipline -Prison Problems Problem Description Start Date Status Goals Interve ntions Sepsis Disciplines: Skilled Services 07/19/2023 Active 1 goal linked to scheduled/documente d intervention 1 goal intervention scheduled/documente d in this visit Physician Specific Parameters Disciplines: Skilled Services 07/19/2023 Active 1 goal linked to scheduled/documente d intervention 1 goal intervention scheduled/documente d in this visit SN Edema Disciplines: SN 07/19/2023 Active 1 goal linked to scheduled/documente d intervention 1 goal intervention scheduled/documente d in this visit SN Integumentary/W ounds Disciplines: SN 07/19/2023 Active 1 goal linked to scheduled/documente d intervention 1 goal intervention scheduled/documente d in this visit Goals Goal Associated Problem Outcome Goal Met? Visit Notes Patient/caregiver will be able to identify and report symptoms of sepsis Description: Patient/caregiver will be able to identify signs/symptoms of sepsis infection and will verbalize actions to take if suspected by 09/16/23. Sepsis No Patient to maintain parameters within physician-specified ranges throughout certification period Physician Specific Parameters No Patient will have improved edema management Description: Patient/caregiver will demonstrate an understanding of edema management strategies as evidenced by resolution or stabilization of edema by 09/03/23. SN Edema No Patient/Caregiver will have improved healing and be free of signs and symptoms of complications Description: Patient/caregiver will verbalize management strategies to promote wound healing & prevent complications as evidenced by improved healing & no complications by 09/03/23. SN Integumentary/Wounds No Interventions Intervention Associated Problem/Goal Status Variance Visit Notes Risk of Sepsis Description: Patient is at risk for sepsis. Monitor closely for s/s of sepsis. Problem:Sepsis Goal:Patient/caregiver will be able to identify and report symptoms of sepsis Completed SPO2 Description: Notify and stop activity if pulse ox is <92% at rest. Problem:Physician Specific Parameters Goal:Patient to maintain parameters within physician-specified ranges throughout certification period Completed Assess and instruct on measures to reduce edema Problem:SN Edema Goal:Patient will have improved edema management Completed patient instructed on elevation, compression, diet, medication compliance and benefits of activity. Wound Care: Perform wound care (1) Description: Wound Care Order: Incision location: sternal Wound type (etiology): Incision Order: cleanse with soap and water- do nto scrub, leave MAGGY Frequency: daily and PRN Wound care to be completed by patient except for scheduled SN wound care visits. Measure wound/incision at least weekly. Okay to substitute comparable products from home care formulary. Problem:SN Integumentary/Wounds Goal:Patient/Caregiver will have improved healing and be free of signs and symptoms of complications Completed Completed by SN. Patient did tolerate well. [facility] available for this section [facility] Reason for referral (narrative)* Diagnostic Procedure Only (Routine) - Pending Review Specialty Diagnoses / Procedures Referred By Tanvi t Referred To Contact [facility]AG[facility] Diagnoses Carotid stenosis, asymptomatic, bilateral Procedures US CAROTID BILAT Inocencia Aaron, DO [address] [place] [address] [facility] Referral ID Status Reason Start Date Expiration Date Visits Requested Visits Authorized [id number] Pending Review Auto-Generat ed Referral 07/31/2022 08/30/2022 1 1 [facility] for referral (narrative)* Diagnostic Procedure Only (Routine) - Pending Review Specialty Diagnoses / Procedures Referred By Contac t Referred To Contact US IMAGING Diagnoses Internal carotid artery stenosis, bilateral History of right-sided carotid endarterectomy Procedures US CAROTID BILATERAL Ame Machado APRN.PROGRESSIVE [employer]ER [employer] [address] [place] [address] [place] [address] Referral ID Status Reason Start Date Expiration Date Visits Requested Visits Authorized [id number] Pending Review Auto-Generat ed Referral 06/20/2023 07/19/2024 1 1 [facility] for referral (narrative)* Outpatient Procedure (Routine) - Pending Review Specialty Diagnoses / Procedures Referred By Contac t Referred To Contact [facility] Diagnoses S/P CABG (coronary artery bypass graft) Procedures EXERCISE STRESS ECG (WITHOUT IMAGING) Bree Easton APRN.PROGRESSIVE [employer]SEMBLER [employer]TER [address] [place] [address] [facility] [address] [place] [id number] Referral ID Status Reason Start Date Expiration Date Visits Requested Visits Authorized [id number] Pending Review Auto-Generat ed Referral 08/12/2023 08/11/2024 1 1 * Outpatient Procedure (Routine) - Pending Review Specialty Diagnoses / Procedures Referred By Contac t Referred To Contact [facility] Diagnoses S/P CABG (coronary artery bypass graft) Procedures EXERCISE STRESS ECG (WITHOUT IMAGING) Bree Easton APRN.PROGRESSIVE [employer]BLER [employer]TER [address] [place] [address] [facility] [address] [place] [address] Referral ID Status Reason Start Date Expiration Date Visits Requested Visits Authorized [id number] Pending Review Auto-Generat ed Referral 08/12/2023 08/11/2024 1 1 [facility] for referral (narrative)* Diagnostic Procedure Only (Routine) - Pending Review Specialty Diagnoses / Procedures Referred By Tanvi burton Referred To Contact [facility] Diagnoses Bilateral carotid artery stenosis History of right-sided carotid endarterectomy Procedures US CAROTID BILATERAL Inocencia Aaron DO [address] [place] [address] [place] [address] Referral ID Status Reason Start Date Expiration Date Visits Requested Visits Authorized [id number] Pending Review Auto-Generat ed Referral 08/16/2024 09/15/2024 1 1 [facility] for visit Narrative* Diagnostic Procedure Only (Routine) - Closed Specialty Diagnoses / Procedures Referred By Tanvi burton Referred To Contact [facility] Diagnoses Bilateral carotid artery stenosis History of right-sided carotid endarterectomy Procedures US CAROTID BILATERAL Inocencia Aaron DO [address] [place] [address] Phone: tel: fax: [place] [address] Referral ID Status Reason Start Date Expiration Date V isits Requested Visits Authorized [id number] Closed Auto-Generate d Referral 08/16/2024 09/15/2024 1 1 [facility] Summary Purpose Family History No Family History Records Found Relationship Condition Age at Onset Recorded Date/T cinthia brother Coronary artery disease Unknown mother Coronary artery disease Unknown Diabetes mellitus Unknown sister Myocarditis Unknown Malignant neoplasm Unknown sister Malignant neoplasm Unknown Relationship Condition Age at Onset Recorded Date/T cinthia Not Specified Fatigue Unknown Dyspnea Unknown brother Coronary artery disease Unknown mother Coronary artery disease Unknown Diabetes mellitus Unknown sister Myocarditis Unknown Malignant neoplasm Unknown sister Malignant neoplasm Unknown Advance Directives No Advanced Directives Records Found Date Activated Date Inactivated Comments 07/07/2023 2:47 AM 07/18/2023 11:52 PM Question Answer Comments Full Code Order Discussed With: Patient Advance Directive Response Recorded Date/ Time Advance Directives No September 04 7:20am Living Will No September 05, 2019 7:20am Power of Office Mover No September 04 0 7:20am Advance Directive Response Recorded Date/ Time Advance Directives No September 04 6:20am Living Will No September 05, 2019 6:20am Power of Office Mover No September 04 0 6:20am Date Activated Date Inactivated Comments 07/07/2023 2:47 AM Date Activated Date Inactivated Comments 07/20/2023 1:19 AM Date Activated Date Inactivated Comments 07/07/2023 2:47 AM 07/18/2023 11:52 PM Question Answer Comments Full Code Order Discussed With: Patient Date Activated Date Inactivated Comments 07/20/2023 1:19 AM Date Activated Date Inactivated Comments 07/07/2023 2:47 AM 07/18/2023 11:52 PM Question Answer Comments Full Code Order Discussed With: Patient History of Present Illness * Eleazar Tsang - 10/10/2019 12:32 PM EDT Domi Snell is a 68 year old female here for carotid artery stenosis HPI: Patient was found an outside hospital to have severe carotid artery stenosis on a recent duplex examination. She is asymptomatic with regard to carotid artery disease. She denies any stroke or strokelike symptoms. She has not had any TIAs. She denies any amaurosis fugax. At this point in time sheis here to have her carotid disease evaluated and see if she needs further evaluation or intervention. MEDICATIONS: Current Outpatient Medications Medication Sig Dispense Refill amLODIPine (NORVASC) 10 mg tablet Take 10 mg by mouth once daily. aspirin, enteric coated (ASPIRIN, ENTERIC COATED) 81 mg EC tablet Take 81 mg by mouth once daily. furosemide (LASIX) 20 mg tablet Take 20 mg by mouth once daily. isosorbide mononitrate ER (IMDUR) 60 mg 24 hr tablet Take 60 mg by mouth once daily. atorvastatin (LIPITOR) 80 mg tablet Take 80 mg by mouth once daily. nitroglycerin sublingual (NITROSTAT) 0.4 mg SL tablet Dissolve 0.4 mg under the tongue every 5 minutes as needed. omeprazole (PRILOSEC) 40 mg capsule Take 40 mg by mouth once daily. clopidogrel (PLAVIX) 75 mg tablet Take 75 mg by mouth once daily. potassium chloride (K-TAB) 10 mEq tablet Take 10 mEq by mouth once daily. sertraline (ZOLOFT) 100 mg tablet Take 150 mg by mouth once daily. 1.5 tablets daily triamcinolone acetonide topical 0.5 % ointment Apply to affected area twice daily. hydrOXYzine pamoate (VISTARIL) 25 mg capsule Take 25 mg by mouth three times daily as needed. No current facility-administered medications for this visit. ALLERGIES Allergen Reactions Doxycycline Unknown Metoprolol Unknown Oxycodone Unknown BP 140/80 Pulse 76 Resp 18 Ht 5' 0 (1.52m) Wt 187 lb (84.8kg) BMI 36.52 kg/(m^2). PHYSICAL EXAM: Well-developed well-nourished female alert and oriented person place and time in no acute distress time examination. Neurologic the patient is intact. ASSESSMENT: Review the patient's noninvasive testing and really find that the highest peak systolic velocity she has is 145 cm/s. By most criteria this would fall into a 40-59 or 50-69% range and be at the low end of that spectrum. I discussed all of this with the patient. She is on appropriate antiplatelet agents and statin agent and I tell her this is the appropriate treatment for this. I tell her this wasnot a high-grade stenosis by Doppler criteria and it is really very unusual the criteria that the lab uses that she was done at. I have not ever been familiar with the lab calling severe stenosis at 145. At this point in time we discussed the fact that she will need to have repeat carotid duplex inabout 1 year and I would probably have it done at a different laboratory. At this juncture the patient satisfied with this and is going to follow-up with us in 1 year for repeat carotid duplex. PLAN: Carotid duplex in 1 year with office visit to follow FOLLOW UP: 1 year This note was generated with [employer] dictation software. It may contain incorrect words, spelling, and punctuation and that were not noted in review of the chart prior to signing. I spent 30 minutes in the visit, with more than 50% of the total [id number] time of the visit in counseling / coordination of care. Eleazar Tsang MD documented in this encounter Assessments Diagnosis Asymptomatic bilateral carotid artery stenosis- Primary Occlusion and stenosis of carotid artery without mention of cerebral infarction Chief Complaint and Reason for Visit Chief Complaint 1 Y FU 3 M FU NICOTINE DEP Reason for Visit Obesity ERICKA (obstructive sleep apnea) Nicotine dependence, cigarettes, in remission ERICKA (obstructive sleep apnea) Chief Complaint 1 Y FU PREV PFM Reason for Visit Carotid artery disea se History of coronary artery stent placement Hyperlipidemia Hypertension Chief Complaint INT LABS 1 Y FU HX NICOTINE DEPENDENCE Reason for Visit GERD (gastroesophage al reflux disease) Nicotine dependence in remission Obesity ERICKA (obstructive sleep apnea) Chief Complaint 1 Y FU HX NICOTINE DEPENDENCE 1 M FU EORDER CHAHAL, FATIGUE, HX CAD/STENT Reason for Visit GERD (gastroesophage al reflux disease) Nicotine dependence in remission Obesity ERICKA (obstructive sleep apnea) Chronic cough Nicotine dependence in remission Obesity ERICKA (obstructive sleep apnea) Chief Complaint 1 Y FU HX NICOTINE DEPENDENCE 1 M FU EORDER CHAHAL, FATIGUE, HX CAD/STENT CHAHAL, FATIGUE, HX CAD/STENT Reason for Visit GERD (gastroesophage al reflux disease) Nicotine dependence in remission Obesity ERICKA (obstructive sleep apnea) Nicotine dependence in remission Obesity ERICKA (obstructive sleep apnea) Additional Source Comments INFORMATION SOURCE (unrecogn ized section and content) DATE CREATED AUTHOR 08/10/2017 [facility] DATE CREATED AUTHOR AUTHOR'S ORGANIZ ATION 07/31/2020 [facility] DATE CREATED AUTHOR AUTHOR'S ORGANIZ ATION 07/27/2023 [facility] DATE CREATED AUTHOR AUTHOR'S ORGANIZ ATION 10/12/2023 [facility] ([place]) DATE CREATED AUTHOR AUTHOR'S ORGANIZ ATION 09/07/2024 [facility] DATE CREATED AUTHOR AUTHOR'S ORGANIZ ATION 11/29/2024 [facility] DATE CREATED AUTHOR AUTHOR'S ORGANIZ ATION 12/25/2024 [facility] Source Comments (unrecognize d section and content) In the event this informatio n is protected by the Federal Confidentiality of Alcohol and Drug Abuse Patient Records regulations: The Federal rules restrict any use of the information to criminally investigate or prosecute any alcohol or drug abuse patient.[facility] the event this information is protected by the Federal Confidentiality of Alcohol and Drug Abuse Patient Records regulations: The Federal rules restrict any use of the information to criminally investigate or prosecute any alcohol or drug abuse patient.[facility] HospitalIn the event this information is protected by the Federal Confidentiality of Alcohol and Drug Abuse Patient Records regulations: The Federal rules restrict any use of the information to criminally investigate or prosecute any alcohol or drug abuse patient.[facility] HospitalIn the event this information is protected by the Federal Confidentiality of Alcohol and Drug Abuse Patient Records regulations: The Federal rules restrict any use of the information to criminally investigate or prosecute any alcohol or drug abuse patient.[facility] HospitalIn the event this information is protected by the Federal Confidentiality of Alcohol and Drug Abuse Patient Records regulations: The Federal rules restrict any use of the information to criminally investigate or prosecute any alcohol or drug abuse patient.[facility] HospitalIn the event this information is protected by the Federal Confidentiality of Alcohol and Drug Abuse Patient Records regulations: The Federal rules restrict any use of the information to criminally investigate or prosecute any alcohol or drug abuse patient.[facility] HospitalIn the event this information is protected by the Federal Confidentiality of Alcohol and Drug Abuse Patient Records regulations: The Federal rules restrict any use of the information to criminally investigate or prosecute any alcohol or drug abuse patient.[facility] HospitalIn the event this information is protected by the Federal Confidentiality of Alcohol and Drug Abuse Patient Records regulations: The Federal rules restrict any use of the information to criminally investigate or prosecute any alcohol or drug abuse patient.[facility] ClinicIn the event this information is protected by the Federal Confidentiality of Alcohol and Drug Abuse Patient Records regulations: The Federal rules restrict any use of the information to criminally investigate or prosecute any alcohol or drug abuse patient.[facility] HospitalIn the event this information is protected by the Federal Confidentiality of Alcohol and Drug Abuse Patient Records regulations: The Federal rules restrict any use of the information to criminally investigate or prosecute any alcohol or drug abuse patient.[facility] HospitalIn the event this information is protected by the Federal Confidentiality of Alcohol and Drug Abuse Patient Records regulations: The Federal rules restrict any use of the information to criminally investigate or prosecute any alcohol or drug abuse patient.[facility] HospitalIn the event this information is protected by the Federal Confidentiality of Alcohol and Drug Abuse Patient Records regulations: The Federal rules restrict any use of the information to criminally investigate or prosecute any alcohol or drug abuse patient.[facility] HospitalIn the event this information is protected by the Federal Confidentiality of Alcohol and Drug Abuse Patient Records regulations: The Federal rules restrict any use of the information to criminally investigate or prosecute any alcohol or drug abuse patient.[facility] HospitalIn the event this information is protected by the Federal Confidentiality of Alcohol and Drug Abuse Patient Records regulations: The Federal rules restrict any use of the information to criminally investigate or prosecute any alcohol or drug abuse patient.[facility] HospitalIn the event this information is protected by the Federal Confidentiality of Alcohol and Drug Abuse Patient Records regulations: The Federal rules restrict any use of the information to criminally investigate or prosecute any alcohol or drug abuse patient.[facility] HospitalIn the event this information is protected by the Federal Confidentiality of Alcohol and Drug Abuse Patient Records regulations: The Federal rules restrict any use of the information to criminally investigate or prosecute any alcohol or drug abuse patient.[facility] HospitalIn the event this information is protected by the Federal Confidentiality of Alcohol and Drug Abuse Patient Records regulations: The Federal rules restrict any use of the information to criminally investigate or prosecute any alcohol or drug abuse patient.[facility] HospitalIn the event this information is protected by the Federal Confidentiality of Alcohol and Drug Abuse Patient Records regulations: The Federal rules restrict any use of the information to criminally investigate or prosecute any alcohol or drug abuse patient.[facility] HospitalIn the event this information is protected by the Federal Confidentiality of Alcohol and Drug Abuse Patient Records regulations: The Federal rules restrict any use of the information to criminally investigate or prosecute any alcohol or drug abuse patient.[facility] HospitalIn the event this information is protected by the Federal Confidentiality of Alcohol and Drug Abuse Patient Records regulations: The Federal rules restrict any use of the information to criminally investigate or prosecute any alcohol or drug abuse patient.[facility] HospitalIn the event this information is protected by the Federal Confidentiality of Alcohol and Drug Abuse Patient Records regulations: The Federal rules restrict any use of the information to criminally investigate or prosecute any alcohol or drug abuse patient.[facility] HospitalIn the event this information is protected by the Federal Confidentiality of Alcohol and Drug Abuse Patient Records regulations: The Federal rules restrict any use of the information to criminally investigate or prosecute any alcohol or drug abuse patient.[facility] HospitalIn the event this information is protected by the Federal Confidentiality of Alcohol and Drug Abuse Patient Records regulations: The Federal rules restrict any use of the information to criminally investigate or prosecute any alcohol or drug abuse patient.[facility] HospitalIn the event this information is protected by the Federal Confidentiality of Alcohol and Drug Abuse Patient Records regulations: The Federal rules restrict any use of the information to criminally investigate or prosecute any alcohol or drug abuse patient.[facility] HospitalIn the event this information is protected by the Federal Confidentiality of Alcohol and Drug Abuse Patient Records regulations: The Federal rules restrict any use of the information to criminally investigate or prosecute any alcohol or drug abuse patient.[facility] HospitalIn the event this information is protected by the Federal Confidentiality of Alcohol and Drug Abuse Patient Records regulations: The Federal rules restrict any use of the information to criminally investigate or prosecute any alcohol or drug abuse patient.[facility] HospitalIn the event this information is protected by the Federal Confidentiality of Alcohol and Drug Abuse Patient Records regulations: The Federal rules restrict any use of the information to criminally investigate or prosecute any alcohol or drug abuse patient.[facility] HospitalIn the event this information is protected by the Federal Confidentiality of Alcohol and Drug Abuse Patient Records regulations: The Federal rules restrict any use of the information to criminally investigate or prosecute any alcohol or drug abuse patient.[facility] HospitalIn the event this information is protected by the Federal Confidentiality of Alcohol and Drug Abuse Patient Records regulations: The Federal rules restrict any use of the information to criminally investigate or prosecute any alcohol or drug abuse patient.[facility] HospitalIn the event this information is protected by the Federal Confidentiality of Alcohol and Drug Abuse Patient Records regulations: The Federal rules restrict any use of the information to criminally investigate or prosecute any alcohol or drug abuse patient.[facility] HospitalIn the event this information is protected by the Federal Confidentiality of Alcohol and Drug Abuse Patient Records regulations: The Federal rules restrict any use of the information to criminally investigate or prosecute any alcohol or drug abuse patient.[facility] HospitalIn the event this information is protected by the Federal Confidentiality of Alcohol and Drug Abuse Patient Records regulations: The Federal rules restrict any use of the information to criminally investigate or prosecute any alcohol or drug abuse patient.[facility] HospitalIn the event this information is protected by the Federal Confidentiality of Alcohol and Drug Abuse Patient Records regulations: The Federal rules restrict any use of the information to criminally investigate or prosecute any alcohol or drug abuse patient.[facility] HospitalIn the event this information is protected by the Federal Confidentiality of Alcohol and Drug Abuse Patient Records regulations: The Federal rules restrict any use of the information to criminally investigate or prosecute any alcohol or drug abuse patient.[facility] HospitalIn the event this information is protected by the Federal Confidentiality of Alcohol and Drug Abuse Patient Records regulations: The Federal rules restrict any use of the information to criminally investigate or prosecute any alcohol or drug abuse patient.[facility] HospitalIn the event this information is protected by the Federal Confidentiality of Alcohol and Drug Abuse Patient Records regulations: The Federal rules restrict any use of the information to criminally investigate or prosecute any alcohol or drug abuse patient.[facility] HospitalIn the event this information is protected by the Federal Confidentiality of Alcohol and Drug Abuse Patient Records regulations: The Federal rules restrict any use of the information to criminally investigate or prosecute any alcohol or drug abuse patient.[facility] HospitalIn the event this information is protected by the Federal Confidentiality of Alcohol and Drug Abuse Patient Records regulations: The Federal rules restrict any use of the information to criminally investigate or prosecute any alcohol or drug abuse patient.[facility] HospitalIn the event this information is protected by the Federal Confidentiality of Alcohol and Drug Abuse Patient Records regulations: The Federal rules restrict any use of the information to criminally investigate or prosecute any alcohol or drug abuse patient.[facility] HospitalIn the event this information is protected by the Federal Confidentiality of Alcohol and Drug Abuse Patient Records regulations: The Federal rules restrict any use of the information to criminally investigate or prosecute any alcohol or drug abuse patient.[facility] HospitalIn the event this information is protected by the Federal Confidentiality of Alcohol and Drug Abuse Patient Records regulations: The Federal rules restrict any use of the information to criminally investigate or prosecute any alcohol or drug abuse patient.[facility] HospitalIn the event this information is protected by the Federal Confidentiality of Alcohol and Drug Abuse Patient Records regulations: The Federal rules restrict any use of the information to criminally investigate or prosecute any alcohol or drug abuse patient.[facility] HospitalIn the event this information is protected by the Federal Confidentiality of Alcohol and Drug Abuse Patient Records regulations: The Federal rules restrict any use of the information to criminally investigate or prosecute any alcohol or drug abuse patient.[facility] HospitalIn the event this information is protected by the Federal Confidentiality of Alcohol and Drug Abuse Patient Records regulations: The Federal rules restrict any use of the information to criminally investigate or prosecute any alcohol or drug abuse patient.[facility] Reason for Visit (unrecogniz ed section and content) Reason Comments New Patient Evaluation Rfd by Leonor stroud CNP for carotid stensos. carotid us & 08/09/19 CTA neck done Reason Comments Follow Up Tests Results Reason Comments Appointment Reason Comments New Patient annual f/u for asymp tomatic bilateral carotid artery stenosis, chronic venous insufficiency with US CAROTID BILAT 07/21/21 Reason Comments Established Patient Hospital Discharge - asymptomatic carotid artery stenosis Follow Up Annual follow-up Reason Comments Appointment Appointment Reason Comments Opened In Error Reason Comments Schedule Surgery Reason Comments Home Care Confirmation call. 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 Reason Comments Med Change Request Reason Comments Post Op 07/12/23 CABG Reason Comments Cardiac Rehab Referral info Reason Comments Carotid artery stenosis Domi is here to review 06/13/23 US Reason Comments CARD Follow Up 3 Month CABG/MAZE/LAAC Reason Comments Appointment Annual with testing Reason Comments Established Patient Stenosis Bilateral carotid ar maritza stenosis Care Team (unrecognized sect ion and content) Fringe Maker Relationship Specialty Start Date End Date Leonor Orellana CNP [address] [place] [phone] PCP - General Family Practice 08/27/19 Manjinder Toney MD Cardiology 08/27/19 Fringe Maker Relationship Specialty Start Date End Date [employer] Leonor WILBUR [address] [place] [phone] PCP - General Family Practice 08/27/19 Manjinder Toney MD Cardiology 08/27/19 Fringe Maker Relationship Specialty Start Date End Date Leonor Orellana CNP [address] [place] [phone] (Work) PCP - General Family Practice 08/27/19 Manjinder Toney MD Cardiology 08/27/19 Team Status: Active Member Role Status Dates Leonor Orellana TRAVELING NURSE, TRAVELING NURSE-C Family Provider Active Leonor Orellana TRAVELING NURSE, TRAVELING NURSE-C Primary Care Provider Active Team Status: Inactive Member Role Status Dates Leonor Orellana TRAVELING NURSE, TRAVELING NURSE-C Primary Care Provider, Referri ng Provider Active Shannon Bradshaw TRAVELING NURSE, TRAVELING NURSE-C Attending Provider Active Team Status: Inactive Member Role Status Dates Leonor Orellana TRAVELING NURSE, TRAVELING NURSE-C Primary Care Provider, Referri ng Provider Active Dr. Lucien Louis , DO Attending Provider Active Team Status: Inactive Member Role Status Dates Leonor Orellana TRAVELING NURSE, TRAVELING NURSE-C Primary Care Provider Active Dr. Lucien Louis , DO Attending Provider, Referring Pro vider Active Fringe Maker Relationship Specialty Start Date End Date Leonor Orellana CNP [address] [place] [phone] PCP - General Family Medicine 08/27/19 Manjinder Toney MD [address] [place] [phone] Cardiology 08/27/19 Fringe Maker Relationship Specialty Start Date End Date Leonor Orellana CNP [address] [place] [phone] PCP - General Family Medicine 08/27/19 Manjinder Toney MD [address] [place] [phone] Cardiology 08/27/19 Team Status: Inactive Member Role Status Dates Leonor Orellana TRAVELING NURSE, TRAVELING NURSE-C Primary Care Provider, Referri ng Provider Active Dr. Boo Williamson MD Active Ifeanyi aMldonado TRAVELING NURSE, TRAVELING NURSE-C Attending Provider Active Team Status: Inactive Member Role Status Dates Leonor Orellana TRAVELING NURSE, TRAVELING NURSE-C Primary Care Provider Active Ifeanyi Maldonado TRAVELING NURSE, TRAVELING NURSE-C Attending Provider Active Team Status: Inactive Member Role Status Dates Leonor Orellana TRAVELING NURSE, TRAVELING NURSE-C Primary Care Provider Active Ifeanyi Maldonado TRAVELING NURSE, TRAVELING NURSE-C Attending Provider, Referring Pro vider Active Team Status: Inactive Member Role Status Dates Leonor Orellana TRAVELING NURSE, TRAVELING NURSE-C Primary Care Provider Active Shannon Bradshaw TRAVELING NURSE, TRAVELING NURSE-C Attending Provider, Referrin g Provider Active Team Status: Active Member Role Status Dates Leonor Orellana TRAVELING NURSE, TRAVELING NURSE-C Primary Care Provider Active Tesha Wilhelm PA, PA Attending Provider, Referr ing Provider Active Team Status: Active Member Role Status Dates Leonor Orellana TRAVELING NURSE, TRAVELING NURSE-C Primary Care Provider Active Tesha Wilhelm PA, PA Referring Provider, Other Provider Active Dr. Koko Summers MD Attending Provider Active Team Status: Inactive Member Role Status Dates Leonor Orellana TRAVELING NURSE, TRAVELING NURSE-C Primary Care Provider Active Tesha Wilhelm PA, PA Attending Provider, Referr ing Provider Active Fringe Maker Relationship Specialty Start Date End Date Leonor Orellana CNP [address] [place] [phone] PCP - General Family Medicine 08/27/19 Manjinder Toney MD [address] [place] [phone] Cardiology 08/27/19 Fringe Maker Relationship Specialty Start Date End Date Leonor Orellana CNP [address] [place] [phone] PCP - General Family Medicine 08/27/19 Manjinder Toney MD [address] [place] [phone] Cardiology 08/27/19 Fringe Maker Relationship Specialty Start Date End Date Leonor Orellana CNP [address] [place] [phone] PCP - General Family Medicine 08/27/19 Manjinder Toney MD [address] [place] [address] [phone] Cardiology 08/27/19 Fringe Maker Relationship Specialty Start Date End Date Leonor Orellana CNP [address] [place] [phone] PCP - General Family Medicine 08/27/19 Manjinder Toney MD [address] [place] [address] [phone] Cardiology 08/27/19 Fringe Maker Relationship Specialty Start Date End Date Leonor Orellana CNP [address] [place] [phone] PCP - General Family Medicine 08/27/19 Manjinder Toney MD [address] [place] [address] [phone] Cardiology 08/27/19 Fringe Maker Relationship Specialty Start Date End Date Leonor Orellana CNP [address] [place] [phone] PCP - General Family Medicine 08/27/19 Manjinder Toney MD [address] [place] [address] [phone] Cardiology 08/27/19 Fringe Maker Relationship Specialty Start Date End Date Leonor Orellana CNP [address] [place] [phone] PCP - General Family Medicine 08/27/19 Manjinder Toney MD [address] [place] [address] [phone] Cardiology 08/27/19 Mary Stiles APRN.PROGRESSIVE ASSEMBLER AND FITTER [address] [place] [address] Referring Cardiothoracic Surgery 07/18/23 Jan Aparicio MD [address] [place] [address] Home Care Provider Cardiothoracic Surgery 07/18/23 Johnny Polo, KAYLI [address] [place], [place] [phone] Preschool Program Director Post Acute Care 07/18/23 Fringe Maker Relationship Specialty Start Date End Date Leonor Orellana CNP [address] [place] [phone] PCP - General Family Medicine 08/27/19 Manjinder Toney MD [address] [place] [phone] Cardiology 08/27/19 Mary Stiles APRN.PROGRESSIVE ASSEMBLER AND FITTER [address] [place] [address] [place] [address] Referring Cardiothoracic Surgery 07/18/23 Jan Aparicio MD [address] [place] [address] [place] [address] Home Care Provider Cardiothoracic Surgery 07/18/23 Johnny Polo RN [address] [place], [place] [phone] Preschool Program Director Post Acute Care 07/18/23 Fringe Maker Relationship Specialty Start Date End Date Leonor Orellana CNP [address] [place] [phone] PCP - General Family Medicine 08/27/19 Manjinder Toney MD [address] [place] [address] [phone] Cardiology 08/27/19 Mary Stiles APRN.PROGRESSIVE ASSEMBLER AND FITTER [address] [place] [address] [place] [address] Referring Cardiothoracic Surgery 07/18/23 Jan Aparicio MD [address] [place] [address] [place] [address] Home Care Provider Cardiothoracic Surgery 07/18/23 Johnny Polo RN [address] [place], [place] [phone] Preschool Program Director Post Acute Care 07/18/23 Fringe Maker Relationship Specialty Start Date End Date Leonor Orellana CNP [address] [place] [phone] PCP - General Family Medicine 08/27/19 Manjinder Toney MD [address] [place] [address] [phone] Cardiology 08/27/19 Mary Stiles APRN.PROGRESSIVE ASSEMBLER AND FITTER [address] [address] [place], [place] [id number] [phone] Referring Cardiothoracic Surgery 07/18/23 Jan Aparicio MD [address] [place] [place], [place] [address] [phone] Home Care Provider Cardiothoracic Surgery 07/18/23 Johnny Polo RN [address] [place] [address] Preschool Program Director Post Acute Care 07/18/23 Fringe Maker Relationship Specialty Start Date End Date Leonor Orellana CNP [address] [place] [phone] PCP - General Family Medicine 08/27/19 Manjinder Toney MD [address] [place] [address] [phone] Cardiology 08/27/19 Mary Stiles APRN.PROGRESSIVE ASSEMBLER AND FITTER [address] [place] [address] Referring Cardiothoracic Surgery 07/18/23 Jan Aparicio MD [address] [place] [address] Home Care Provider Cardiothoracic Surgery 07/18/23 Johnny Polo RN [address] [place] [address] Preschool Program Director Post Acute Care 07/18/23 Fringe Maker Relationship Specialty Start Date End Date Leonor Orellana CNP [facility] [place] [address] PCP - General Family Medicine 08/27/19 Manjinder Toney MD [address] [place] [address] [phone] Cardiology 08/27/19 Mary Stiles APRN.PROGRESSIVE ASSEMBLER AND FITTER [address] [place] [address] Referring Cardiothoracic Surgery 07/18/23 Jan Aparicio MD [address] [place] [address] Home Care Provider Cardiothoracic Surgery 07/18/23 Johnny Polo RN [address] [place] [address] Preschool Program Director Post Acute Care 07/18/23 Fringe Maker Relationship Specialty Start Date End Date Leonor Orellana CNP [address] [place] [phone] (Work) PCP - General Family Medicine 08/27/19 Manjinder Toney MD [address] [place] [address] [phone] Cardiology 08/27/19 Mary Stiles APRN.PROGRESSIVE ASSEMBLER AND FITTER [address] [place], [place] [id number] [phone] Referring Cardiothoracic Surgery 07/18/23 Jan Aparicio MD [address] [place] [address] [place] [address] Home Care Provider Cardiothoracic Surgery 07/18/23 Johnny Polo RN [address] [place], [place] [phone] Preschool Program Director Post Acute Care 07/18/23 Fringe Maker Relationship Specialty Start Date End Date Leonor Orellana CNP [facility] [place] [address] PCP - General Family Medicine 08/27/19 Manjinder Toney MD [address] [place] [phone] Cardiology 08/27/19 Mary Stiles APRN.PROGRESSIVE ASSEMBLER AND FITTER [address] [place] [address] Referring Cardiothoracic Surgery 07/18/23 Jan Aparicio MD [address] [place] [address] Home Care Provider Cardiothoracic Surgery 07/18/23 Johnny Polo RN [address] [place] [address] Preschool Program Director Post Acute Care 07/18/23 Fringe Maker Relationship Specialty Start Date End Date Leonor Orellana CNP [facility] [place] [address] PCP - General Family Medicine 08/27/19 Manjinder Toney MD [address] [place] [phone] Cardiology 08/27/19 Mary Stiles APRN.PROGRESSIVE ASSEMBLER AND FITTER [address] [place] [address] [place] [address] Referring Cardiothoracic Surgery 07/18/23 Jan Aparicio MD [address] [place] [address] [place] [address] Home Care Provider Cardiothoracic Surgery 07/18/23 Johnny Polo RN [address] [place] [address] Preschool Program Director Post Acute Care 07/18/23 Fringe Maker Relationship Specialty Start Date End Date Leonor Orellana CNP [address] [place] [phone] PCP - General Family Medicine 08/27/19 Manjinder Toney MD [facility] [place] [phone] Cardiology 08/27/19 Mary Stiles APRN.PROGRESSIVE ASSEMBLER AND FITTER [address] [place] [address] [place] [address] Referring Cardiothoracic Surgery 07/18/23 Jan Aparicio MD [address] [place] [address] Home Care Provider Cardiothoracic Surgery 07/18/23 Johnny Polo RN [address] [place], [place] [phone] Preschool Program Director Post Acute Care 07/18/23 Fringe Maker Relationship Specialty Start Date End Date Leonor Orellana CNP [address] [place] [phone] (Work) PCP - General Family Medicine 08/27/19 Manjinder Toney MD [address] [place] [address] [phone] Cardiology 08/27/19 Mary Stiles APRN.PROGRESSIVE ASSEMBLER AND FITTER [address] [place] [address] [place] [address] Referring Cardiothoracic Surgery 07/18/23 Jan Aparicio MD [address] [place] [address] [place], [place] [id number] [phone] Home Care Provider Cardiothoracic Surgery 07/18/23 Johnny Polo RN [address] [place] [phone] Preschool Program Director Post Acute Care 07/18/23 Fringe Maker Relationship Specialty Start Date End Date Leonor Orellana CNP [address] [place] [phone] PCP - General Family Medicine 08/27/19 Manjinder Toney MD [address] [place] [address] [phone] Cardiology 08/27/19 Mary Stiles APRN.PROGRESSIVE ASSEMBLER AND FITTER [address] [place] [address] [place] [address] Referring Cardiothoracic Surgery 07/18/23 Jan Aparicio MD [address] [place] [address] [place] [address] Home Care Provider Cardiothoracic Surgery 07/18/23 Johnny Polo RN [address] [place] [address] Preschool Program Director Post Acute Care 07/18/23 Fringe Maker Relationship Specialty Start Date End Date Leonor Orellana CNP [address] [place] [phone] PCP - General Family Medicine 08/27/19 Manjinder Toney MD [address] [place] [address] [phone] Cardiology 08/27/19 Mary Stiles APRN.PROGRESSIVE ASSEMBLER AND FITTER [address] [place] [address] [place], [place] [id number] Referring Cardiothoracic Surgery 07/18/23 Jan Aparicio MD [address] [place] [address] [place] [address] Home Care Provider Cardiothoracic Surgery 07/18/23 Johnny Polo RN [address] [place] [address] Preschool Program Director Post Acute Care 07/18/23 Fringe Maker Relationship Specialty Start Date End Date Leonor Orellana CNP [address] [place] [phone] PCP - General Family Medicine 08/27/19 Manjinder Toney MD [address] [place] [address] [phone] Cardiology 08/27/19 Mary Stiles APRN.PROGRESSIVE ASSEMBLER AND FITTER [address] [address] [place], [place] [id number] Referring Cardiothoracic Surgery 07/18/23 Jan Aparicio MD [address] [place] [address] Home Care Provider Cardiothoracic Surgery 07/18/23 Johnny Polo RN [address] [place] [address] Preschool Program Director Post Acute Care 07/18/23 Fringe Maker Relationship Specialty Start Date End Date Leonor Orellana CNP [address] [place] [address] PCP - General Family Medicine 08/27/19 Manjinder Toney MD [address] [place] [address] [phone] Cardiology 08/27/19 Mary Stiles APRN.PROGRESSIVE ASSEMBLER AND FITTER [address] [place] [address] Referring Cardiothoracic Surgery 07/18/23 Jan Aparicio MD [address] [place] [address] Home Care Provider Cardiothoracic Surgery 07/18/23 Johnny Polo RN [address] [place] [address] Preschool Program Director Post Acute Care 07/18/23 Fringe Maker Relationship Specialty Start Date End Date Leonor Orellana CNP [address] [place] [address] PCP - General Family Medicine 08/27/19 Manjinder Toney MD [address] [place] [phone] Cardiology 08/27/19 Mary Stiles APRN.PROGRESSIVE ASSEMBLER AND FITTER [address] [place] [address] Referring Cardiothoracic Surgery 07/18/23 Jan Aparicio MD [address] [place] [address] [phone] Home Care Provider Cardiothoracic Surgery 07/18/23 Johnny Polo RN [address] [place] [address] Preschool Program Director Post Acute Care 07/18/23 Luis Garcia MD [address] [phone] Cardiology 08/12/23 Fringe Maker Relationship Specialty Start Date End Date Leonor Orellana CNP [address] [place] [address] [phone] PCP - General Family Medicine 08/27/19 Manjinder Toney MD [address] [place] [address] [phone] Cardiology 08/27/19 Mary Stiles APRN.PROGRESSIVE ASSEMBLER AND FITTER [address] [place] [address] Referring Cardiothoracic Surgery 07/18/23 Jan Aparicio MD [address] [place] [id number] [phone] Home Care Provider Cardiothoracic Surgery 07/18/23 Johnny Polo RN [address] [place] [address] Preschool Program Director Post Acute Care 07/18/23 Luis Garcia MD [address] [address] Cardiology 08/12/23 Fringe Maker Relationship Specialty Start Date End Date Leonor Orellana CNP [address] [place] [phone] PCP - General Family Medicine 08/27/19 Manjinder Toney MD [address] [place] [phone] Cardiology 08/27/19 Mary Stiles APRN.PROGRESSIVE ASSEMBLER AND FITTER [address] [place] [address] Referring Cardiothoracic Surgery 07/18/23 Jan Aparicio MD [address] [place] [address] Home Care Provider Cardiothoracic Surgery 07/18/23 Johnny Polo, RN [address] [place], [place] [phone] Preschool Program Director Post Acute Care 07/18/23 Luis Garcia MD [address] [address] Cardiology 08/12/23 Fringe Maker Relationship Specialty Start Date End Date Leonor Orellana CNP [address] [place] [phone] PCP - General Family Medicine 08/27/19 Manjinder Toney MD [address] [place] [address] [phone] Cardiology 08/27/19 Mary Stiles APRN.PROGRESSIVE ASSEMBLER AND FITTER [address] [place] [address] Referring Cardiothoracic Surgery 07/18/23 Jan Aparicio MD [address] [place] [address] Home Care Provider Cardiothoracic Surgery 07/18/23 Johnny Polo, KAYLI [address] [place], [place] [phone] Preschool Program Director Post Acute Care 07/18/23 Luis Garcia MD [address] [address] Cardiology 08/12/23 Fringe Maker Relationship Specialty Start Date End Date Leonor Orellana CNP [address] [place] [phone] PCP - General Family Medicine 08/27/19 Manjinder Toney MD [address] [place] [phone] Cardiology 08/27/19 Mary Stiles APRN.PROGRESSIVE ASSEMBLER AND FITTER [address] [place] [address] Referring Cardiothoracic Surgery 07/18/23 Jan Aparicio MD [address] [place] [address] Home Care Provider Cardiothoracic Surgery 07/18/23 Johnny Polo RN [address] [place] [address] Preschool Program Director Post Acute Care 07/18/23 Luis Garcia MD [address] [address] Cardiology 08/12/23 Fringe Maker Relationship Specialty Start Date End Date Leonor Orellana CNP [address] [place] [phone] PCP - General Family Medicine 08/27/19 Manjinder Toney MD [address] [place] [phone] Cardiology 08/27/19 Mary Stiles APRN.PROGRESSIVE ASSEMBLER AND FITTER [address] [place] [address] Referring Cardiothoracic Surgery 07/18/23 Jan Aparicio MD [address] [place] [address] Home Care Provider Cardiothoracic Surgery 07/18/23 Luis Garcia MD [address] [address] Cardiology 08/12/23 Fringe Maker Relationship Specialty Start Date End Date Leonor Orellana CNP [address] [place] [phone] PCP - General Family Medicine 08/27/19 Manjinder Toney MD [address] [place] [phone] Cardiology 08/27/19 Mary Stiles APRN.PROGRESSIVE ASSEMBLER AND FITTER [address] [place], [place] [id number] [phone] Referring Cardiothoracic Surgery 07/18/23 Jan Aparicio MD [address] [place] [address] [phone] Home Care Provider Cardiothoracic Surgery 07/18/23 Luis Garcia MD [address] [place] [address] Cardiology 08/12/23 Fringe Maker Relationship Specialty Start Date End Date Leonor Orellana CNP [address] [place] [phone] PCP - General Family Medicine 08/27/19 Manjinder Toney MD [address] [place] [phone] Cardiology 08/27/19 Mary Stiles APRN.PROGRESSIVE ASSEMBLER AND FITTER [address] [place] [address] Referring Cardiothoracic Surgery 07/18/23 Jan Aparicio MD [address] [place] [address] [place], [place] [id number] Home Care Provider Cardiothoracic Surgery 07/18/23 Luis Garcia MD [address] [place] [address] Cardiology 08/12/23 Fringe Maker Relationship Specialty Start Date End Date Leonor Orellana APRN.PROGRESSIVE ASSEMBLER AND FITTER PCP - General Family Medicine 08/27/19 Manjinder Toney MD Cardiology 08/27/19 Mary Stiles APRN.PROGRESSIVE ASSEMBLER AND FITTER [address] [place] [address] [place], [place] [id number] [phone] Referring Cardiothoracic Surgery 07/18/23 Jan Aparicio MD [address] [place] [address] [place] [address] Home Care Provider Cardiothoracic Surgery 07/18/23 Luis Garcia MD [address] [address] Cardiology 08/12/23 Fringe Maker Relationship Specialty Start Date End Date Leonor Orellana APRN.PROGRESSIVE ASSEMBLER AND FITTER PCP - General Family Medicine 08/27/19 Manjinder Toney MD Cardiology 08/27/19 Mary Sitles SOLAR DESIGNER/INSTALLER.PROGRESSIVE ASSEMBLER AND FITTER [address] [place] [address] [place], [place] [id number] [phone] Referring Cardiothoracic Surgery 07/18/23 Jan Aparicio MD [address] [place] [address] [place] [address] Home Care Provider Cardiothoracic Surgery 07/18/23 Luis Garcia MD [address] [address] Cardiology 08/12/23 Care Team (unrecognized sect ion and content) Care Team Personnel Name: LEONOR ORELLANA APRN-PROGRESSIVE ASSEMBLER AND FITTER Position: P4 Advanced Practice Nurse Med Service: Active Provider Member Role: Primary Care Physician Address: Address: [address] [place] [address]- Care Team Related Persons Name: JT SNELL Care Team Personnel Name: LEONOR ORELLANA APRN-PROGRESSIVE ASSEMBLER AND FITTER Position: P4 Advanced Practice Nurse Med Service: Active Provider Member Role: Primary Care Physician Address: Address: [address] [place] [address]- Care Team Related Persons Name: JT SNELL Care Team Personnel Name: LEONOR ORELLANA APRN-PROGRESSIVE ASSEMBLER AND FITTER Position: P4 Advanced Practice Nurse Med Service: Active Provider Member Role: Primary Care Physician Address: Address: [address] [place] [address]- Care Team Related Persons Name: JT SNELL Care Team Personnel Name: LEONOR ORELLANA APRN-PROGRESSIVE ASSEMBLER AND FITTER Position: P4 Advanced Practice Nurse Med Service: Active Provider Member Role: Primary Care Physician Address: Address: [address] [place] [address]- Care Team Related Persons Name: JT SNELL Care Team Personnel Name: LEONOR ORELLANA APRN-PROGRESSIVE ASSEMBLER AND FITTER Position: P4 Advanced Practice Nurse Med Service: Active Provider Member Role: Primary Care Physician Address: Address: [address] [place] [address]- Care Team Related Persons Name: JT SNELL Care Team Personnel Name: LEONOR ORELLANA APRN-PROGRESSIVE ASSEMBLER AND FITTER Position: P4 Advanced Practice Nurse Member Role: Primary Care Physician Address: Address: [address] [place] [address]- Care Team Related Persons Name: JT SNELL Care Team Personnel Name: LEONOR ORELLANA APRN-PROGRESSIVE ASSEMBLER AND FITTER Position: P4 Advanced Practice Nurse Member Role: Primary Care Physician Address: Address: [address] [facility] [place] [address]- Care Team Related Persons Name: JT SNELL Care Team Personnel Name: LEONOR ORELLANA MITCH-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 This clinical summary was aggregated from multiple sources. Caution should be exercised in using it in the provision of clinical care. This summary normalizes information from multiple sources, and as a consequence, information in this document may materially change the coding, format and clinical context of patient data. In addition, data may be omitted in some cases. CLINICAL DECISIONS SHOULD BE BASED ON THE PRIMARY CLINICAL RECORDS. [facility] [employer] provides no warranty or guarantee of the accuracy or completeness of information in this document.
== END | disposition home or self-care (01) ==
LOC: SL 20:13
PROVIDERS: PCP Nurse Practitioner Family; Referring Provider Nurse Practitioner Acute Care; Visit Provider Nurse Practitioner Acute Care
DX: G47.33 Obstructive sleep apnea (adult) (pediatric) (principal)
CPT/HCPCS: 95810

== ENCOUNTER → 2025-01-09 | Outpatient (CLI) | payer MEDICARE, OTHER, SELFPAY ==
[2017-12-28 12:03] VITALS: BMI 36.5
== END | disposition home or self-care (01) ==
LOC: PSN 12:01
PROVIDERS: PCP Nurse Practitioner Family; Referring Provider Physician Assistant Medical; Visit Provider Physician Assistant Medical
DX: I48.0 Paroxysmal atrial fibrillation (principal)
CPT/HCPCS: 93225; 93226

== ENCOUNTER → 2025-02-04 | Outpatient (CLI) | payer MEDICARE, OTHER, SELFPAY ==
[2017-12-28 12:03] VITALS: BMI 36.5
== END | disposition home or self-care (01) ==
LOC: SL 19:58
PROVIDERS: PCP Nurse Practitioner Family; Referring Provider Nurse Practitioner Acute Care; Visit Provider Nurse Practitioner Acute Care
DX: G47.33 Obstructive sleep apnea (adult) (pediatric) (principal)
CPT/HCPCS: 95811